=== PATIENT | male | born 1945 | race Caucasian/White ===

== ENCOUNTER 2023-05-04 09:25 | Emergency (ER) | payer MEDICARE, SELFPAY ==
[2023-05-04 09:35] VITALS: BP 172/94; PULSE 86; RESP 18; TEMP 36.6; O2SAT 97; BMI 32.3
[2023-05-04 09:49] LABS: Bilirubin Urine NEGATIVE (NEGATIVE); Blood Urine LARGE (NEGATIVE); Clarity Urine CLEAR (CLEAR); Color Urine LT. YELLOW (YELLOW); Glucose Urine UA 100 mg/dL (NEGATIVE); Ketones Urine TRACE mg/dL (NEGATIVE); Leukocyte Esterase Urine LARGE (NEGATIVE); Nitrite Urine POSITIVE (NEGATIVE); Protein Urine 30 mg/dL (NEG/TRACE); Specific Gravity Urine 1.025 (1.005-1.025); Urobilinogen Urine 0.2 EU/dL (0.2-1.0); pH Urine 5.5 (5.0-9.0)
[2023-05-04 10:02] LABS: Bacteria Urine MODERATE #/HPF (NONE SEEN); Calcium Oxalate Crystals Urine RARE; Cast Seen? NONE SEEN #/LPF (NONE SEEN); Crystals Seen? Seen #/HPF (None Seen); Mucus Urine NONE SEEN (NONE SEEN); Squamous Epithelial Cell Urine FEW #/LPF (NONE/RARE); WBC Urine 20-50 #/HPF (NONE SEEN)
[2023-05-04 10:29] VITALS: BP 130/78; PULSE 81; RESP 18; O2SAT 97
--- NOTE | 2023-05-04 16:00 | ED_ITS ---
HPI - General Adult General Chief complaint: Urogenital-Male Stated complaint: TROUBLE URINATING Time Seen by Provider: 05/04/23 09:38 Source: patient Mode of arrival: walk-in History of Present Illness HPI narrative: 69-year-old male to the emergency department with chief complaint hematuria. Patient reports he is being worked up for neurogenic bladder by urology. He is currently self cathetering. He denies any fever, sweats, chills. He denies any flank pain. He is not on blood thinners. He is self cathetering without difficulty. Related Data Previous Rx's Medication Instructions Recorded cephalexin 500 mg capsule 500 mg PO Q6H 7 days #28 caps 05/04/23 Allergies Allergy/AdvReac Type Severity Reaction Status Date / Time No Known Drug Allergies Allergy Verified 05/04/23 09:38 Review of Systems ROS Status of ROS 10 or more systems reviewed and unremark able except as noted in history and below Exam Narrative Exam Narrative: VITALS: I have reviewed the triage vital signs. GENERAL: Well developed, well appearing adult in no acute distress. NEURO: Alert and oriented. Moves all extremities. Face is symmetric and expressive. EYES: PERRL. No scleral icterus or conjunctival injection. No discharge. HENT: Normocephalic, atraumatic. Hearing is grossly intact. Nares grossly patent and without discharge. Mucous membranes moist. NECK: No JVD. Patient moves neck without restriction. GI/: Abdomen is soft and non-tender. Normoactive bowel sounds. EXTREMITIES: Symmetric muscle bulk. No joint swelling. No clubbing, cyanosis, or deformity. SKIN: Warm and dry. Normal turgor. No rash or lesions appreciated. PSYCH: Mood, affect, and interaction is appropriate to the setting. Constitutional Vital Signs, click to edit/add: Last Vital Signs Temp 98 F 05/04/23 09:35 Pulse 81 05/04/23 10:29 Resp 18 05/04/23 10:29 BP 130/78 05/04/23 10:29 Pulse Ox 97 05/04/23 10:29 O2 Del Method Room Air 05/04/23 10:29 Course Vital Signs Vital signs: Vital Signs Temperature 98 F 05/04/23 09:35 Pulse Rate 86 05/04/23 09:35 Respiratory Rate 18 05/04/23 09:35 Blood Pressure 172/94 H 05/04/23 09:35 Pulse Oximetry 97 05/04/23 09:35 Oxygen Delivery Method Room Air 05/04/23 09:35 Temperature 98 F 05/04/23 09:35 Pulse Rate 81 05/04/23 10:29 Respiratory Rate 18 05/04/23 10:29 Blood Pressure 130/78 05/04/23 10:29 Pulse Oximetry 97 05/04/23 10:29 Oxygen Delivery Method Room Air 05/04/23 10:29 Medical Decision Making [facility] Narrative Medical decision making narrative: 69-year-old male to the emergency department with hematuria. Vital stable, patient is afebrile. Belly examination is benign. His urinalysis is positive for urinary tract infection. He'll be placed on Keflex 4 times a day dosing. He'll follow-up with his urologist as scheduled. Return precautions were discussed. All questions were answered. Patient is discharged home. Lab Data Labs: Lab Results 05/04/23 Range/Units 09:43 Urine Color Lt. yellow (YELLOW) Urine Clarity Clear (CLEAR) Urine pH 5.5 (5.0-9.0) Ur Specific [place] 1.025 (1.005-1.025) Urine Protein 30 A (NEG/TRACE) mg/dL Urine Glucose (UA) 100 A (NEGATIVE) mg/dL Urine Ketones Trace A (NEGATIVE) mg/dL Urine Occult Blood Large A (NEGATIVE) Urine Nitrite Positive A (NEGATIVE) Urine Bilirubin Negative (NEGATIVE) Urine Urobilinogen 0.2 (0.2-1.0) EU/dL Ur Leukocyte Esterase Large A (NEGATIVE) Urine RBC 5-10 A (0-2) #/HPF Urine WBC 20-50 A (NONE SEEN) #/HPF Ur Squamous Epith Cells Few A (NONE/RARE) #/LPF Urine Crystals Seen A (None Seen) #/HPF Calcium Oxalate Crystal Rare Urine Bacteria Moderate A (NONE SEEN) #/HPF Urine Casts None seen (NONE SEEN) #/LPF Urine Mucus None seen (NONE SEEN) Discharge Plan Discharge Chief Complaint: Urogenital-Male Clinical Impression: Urinary tract infection Patient Disposition: Home, Self-Care Time of Disposition Decision: 10:22 Condition: Good Mode of Transportation: Private Vehicle Prescriptions / Home Meds: New cephalexin 500 mg capsule 500 mg PO Q6H 7 Days Qty: 28 0RF Print Language: Telugu Instructions: Catheter-associated Urinary Tract Infection (ED) Referrals: Dion Griggs DO [Primary Care Provider] - 1 week Discharge Date/Time: 05/04/23 10:30 Stand Alone Forms: Portal Instructions
== END 2023-05-04 10:30 | disposition home or self-care (01) ==
PROVIDERS: Emergency Provider Student in an Organized Health Care Education/Training Program; PCP Internal Medicine
DX: N39.0 Urinary tract infection, site not specified (principal)
CPT/HCPCS: 81001; 99283

== ENCOUNTER 2023-05-20 18:13 | Emergency (ER) | payer MEDICARE, SELFPAY ==
[2023-05-20 18:17] VITALS: BP 155/90; PULSE 104; RESP 18; TEMP 36.9; O2SAT 96; BMI 32.3
--- NOTE | 2023-05-20 18:21 | CT_ITS ---
[address] [address] Patient Name: KAREN ESCALONA MRN: [id number] date: 1945 Sex: M Assigned Patient Location: ED.MAIN Current Patient Location: Accession/Order Number: [id number] Exam Date: 05/20/2023 19:00 Report Date: 05/20/2023 19:56 At the request of: CARMEN HESTER Procedure: CT abdomen pelvis wo con EXAM: CT abdomen pelvis wo con; [id number] REASON FOR EXAM: Back, abdominal pain TECHNIQUE: Helical CT images of the abdomen and pelvis were obtained without IV contrast. Multiplanar reformats were generated at the scanner. Dose reduction technique used: Automated exposure control and/or adjustment of the mA and/or kV according to patient size and/or use of iterative reconstruction technique. COMPARISON: CT abdomen/pelvis 02/09/2020. FINDINGS: Note: Compared with a contrast-enhanced CT exam, noncontrast images are relatively insensitive for detection of solid organ and vascular abnormalities. Visualized Chest: Small hiatal hernia containing less than 5% of the stomach. Minimal bilateral atelectasis and/or scarring. Abdomen: Liver: Within normal limits. Gallbladder: Large calcified gallstone. No evidence of acute cholecystitis. Bile Ducts: No significant biliary ductal dilatation. Pancreas: No ductal dilatation or inflammatory changes. Spleen: No splenomegaly. Adrenals: Nodular enlargement of the left adrenal gland, stable likely the sequela of nodular hypertrophy. Kidneys: -No hydronephrosis. -There is fat stranding surrounding the right renal pelvis and right ureter to the level of the bladder. -No obstructing stone demonstrated. -There are 3 nonobstructing stones in the right kidney with the largest measuring up to 7 mm. One of the nonobstructing stones is in the right renal pelvis and the stone measures 6 x 3 mm. -Left-sided extrarenal pelvis. -There are at least 5 nonobstructing kidney stones in the left kidney with the largest measuring up to 8 mm. Vascular: No aortic aneurysm. Lymph Nodes: No adenopathy. Abdominal Wall: Small fat-containing bilateral inguinal hernias and small fat-containing periumbilical hernia. Pelvis: No mass or adenopathy. Bowel/Peritoneal Cavity/Mesentery: -No bowel obstruction or significant ileus. -No acute inflammatory changes. -No free air or free fluid. Musculoskeletal: No acute fracture or suspicious osseous lesion. CT/CT abdomen pelvis wo con IMPRESSION: 1. No hydronephrosis or obstructing kidney stone, however, there is inflammation surrounding the right renal pelvis and right ureter to the level of the bladder. Differential includes recently passed stone versus ascending infection. 2. Bilateral nonobstructing kidney stones are present. 3. Cholelithiasis versus acute cholecystitis. Electronically authenticated by: LORNA CORRALES Date: 05/20/2023 19:56
--- NOTE | 2023-05-20 18:27 | ED_ITS ---
HPI - Abdominal Pain General Chief Complaint: Abdominal Pain Stated Complaint: Abdominal Pain, Back Pain, Nausea/Vomiting Time Seen by Provider: 05/20/23 18:20 Source: patient Mode of arrival: walk-in Limitations: no limitations History of Present Illness HPI narrative: Patient is a 77-year-old male who presents to the emergency department for low back pain and bilateral low abdominal pain that began yesterday. He states today he has had 3 episodes of vomiting and had 1 episode of loose stool. He was recently seen by urologist to evaluate for neurogenic bladder and he states he self catheters 3 times a day but is still able to produce some urine. He is able to provide a urine specimen with no catheterization on arrival. He denies any urinary symptoms but states he is urinating less and is noticing dark urine. He has not passed any blood or clots. He denies fevers, chills. He has no upper respiratory symptoms. He was seen in this emergency department 3 weeks ago for UTI. He finished a course of antibiotics. Patient's is very concerned that he may have gallstones because when he was diagnosed with COVID years ago a CT scan showed he had 1 small gallstone. Related Data Previous Rx's ?Medication ?Instructions ?Recorded ciprofloxacin HCl 500 mg tablet 500 mg PO BID #20 tabs 05/20/23 (Cipro) ondansetron 4 mg disintegrating 4 mg PO Q6H PRN nausea and 05/20/23 tablet vomiting #12 tabs tramadol 50 mg tablet 50 mg PO Q4H PRN pain 3 days #15 05/20/23 tabs Allergies Allergy/AdvReac Type Severity Reaction Status Date / Time No Known Drug Allergies Allergy Verified 05/20/23 18:17 Review of Systems ROS Constitutional Denies: fever or chills Ears, nose, mouth, and throat Denies: throat pain or nasal congestion Cardiovascular Denies: chest pain Respiratory Denies: shortness of breath or cough Gastrointestinal Reports: abdominal pain, nausea, vomiting and diarrhea Genitourinary Reports: decreased urine ouput; Denies: painful urination Musculoskeletal Reports: back pain Integumentary/Breast Denies: rash Neurological Denies: headache Endocrine Denies: excessive urination Hematologic/Lymphatic Denies: easy bruising or easy bleeding Exam Narrative Exam Narrative: Gen.: Awake, alert, in no distress Head: Normocephalic, atraumatic ENT: Moist mucous membranes Respiratory: No respiratory distress, lungs clear bilaterally Cardio: Regular rate and rhythm Gastrointestinal: Abdomen is soft, nondistended and nontender to palpation Back: No CVA tenderness Extremities: Moves extremities equally Psych: Normal mood and affect Neuro: No focal neuro deficit Skin: Warm, dry, intact Constitutional Vital Signs, click to edit/add: Last Vital Signs Temp 98.5 F 05/20/23 18:17 Pulse 104 H 05/20/23 18:17 Resp 18 05/20/23 18:17 BP 155/90 H 05/20/23 18:17 Pulse Ox 96 05/20/23 18:17 O2 Del Method Room Air 05/20/23 18:17 Course Vital Signs Vital signs: Vital Signs Temperature 98.5 F 05/20/23 18:17 Pulse Rate 104 H 05/20/23 18:17 Respiratory Rate 18 05/20/23 18:17 Blood Pressure 155/90 H 05/20/23 18:17 Pulse Oximetry 96 05/20/23 18:17 Oxygen Delivery Method Room Air 05/20/23 18:17 Temperature 98.5 F 05/20/23 18:17 Pulse Rate 104 H 05/20/23 18:17 Respiratory Rate 18 05/20/23 18:17 Blood Pressure 155/90 H 05/20/23 18:17 Pulse Oximetry 96 05/20/23 18:17 Oxygen Delivery Method Room Air 05/20/23 18:17 MDM - Abdominal Pain MDM Narrative Medical decision making narrative: Patient was treated with IV Dilaudid, Zofran, IV fluids and IV Cipro for nitrite positive UTI. His previous visit on 05/04/2023 did not apparently have a urine culture ordered so there is no urine culture to compare to. He was most recently treated with Keflex, we will treat with Cipro at this time for different coverage. Patient states he is using self-catheterization 3 times a day to empty his bladder, he is using the same catheters and cleaning them at home, suspect he is contaminating his urine himself. Lab studies show normal white blood cell count, normal LFTs and bilirubin, normal lipase. CT of the abdomen and pelvis shows the patient has inflammation of the ureter, recently passed kidney stone versus infection. Patient has no hydronephrosis to suggest obstructing stone at this time. We will treat for UTI. CT also shows cholelithiasis, radiologist is not able to rule out Acute cholecystitis on this study, although the patient has no leukocytosis, transaminitis or focal ten derness in the right upper quadrant. He arrives afebrile with stable vital signs. He was reevaluated by attending physician on discharge, no indication for additional testing at this time. Patient is resting comfortably with no episodes of emesis in the ER. He will be discharged home with Cipro, Zofran, tramadol. He is instructed to follow-up with PCP and return to the ER if symptoms change or worsen. Medical Records Attestation: I reviewed the patient's medical records. Lab Data Attestation: I reviewed the patient's lab results. Labs: Lab Results 05/20/23 05/20/23 Range/Units 18:20 18:32 WBC 9.9 (4.0-11.0) 10^3/uL RBC 4.86 (4.70-6.10) 10^6/uL Hgb 14.2 (14.0-18.0) g/dL Hct 42.2 (42.0-54.0) % MCV 86.8 (80.0-94.0) fL MCH 29.2 (25.9-34.0) pg MCHC 33.6 (29.9-35.2) g/dL RDW 13.2 (11.0-15.0) % Plt Count 276 (150-450) 10^3/uL MPV 8.5 L (9.5-13.5) fL Neut % (Auto) 79.7 H (43.0-75.0) % Lymph % (Auto) 9.1 L (20.5-60.0) % [place] % (Auto) 9.1 (1.7-12.0) % Eos % (Auto) 0.9 (0.9-7.0) % Baso % (Auto) 0.6 (0.2-2.0) % Neut # (Auto) 7.9 H (1.4-6.5) 10^3/uL Lymph # (Auto) 0.9 L (1.2-3.8) 10^3/uL [place] # (Auto) 0.9 H (0.3-0.8) 10^3/uL Eos # (Auto) 0.1 (0.0-0.7) 10^3/uL Baso # (Auto) 0.1 (0.0-0.1) 10^3/uL Abs Immat Gran (auto) 0.06 H (0.00-0.03) 10^3/uL Imm/Tot Granulo (auto) 0.6 H (0.0-0.5) % Sodium 137 (136-145) mmol/L Potassium 3.9 (3.5-5.1) mmol/L Chloride 101 (98-107) mmol/L Carbon Dioxide 25.2 (21.0-32.0) mmol/L Anion Gap 14.7 BUN 15.0 (7.0-18.0) mg/dL Creatinine 1.02 (0.70-1.30) mg/dL Est GFR ( Amer) >60 (>=60) Est GFR (Non-Af Amer) >60 (>=60) BUN/Creatinine Ratio 14.7 Glucose 228 H (74-106) mg/dL Lactate 2.1 H (0.4-2.0) mmol/L Calcium 8.6 (8.5-10.1) mg/dL Total Bilirubin 0.6 (0.2-1.0) mg/dL AST 17 (15-37) U/L ALT 35 (16-63) U/L Alkaline Phosphatase 55 (46-116) U/L Total Protein 7.5 (6.4-8.2) g/dL Albumin 3.8 (3.4-5.0) g/dL Globulin 3.7 g/dL Albumin/Globulin Ratio 1.0 Lipase 73.0 (16.0-77.0) U/L Urine Color Yellow (YELLOW) Urine Clarity Clear (CLEAR) Urine pH 5.5 (5.0-9.0) Ur Specific [place] 1.025 (1.005-1.025) Urine Protein 30 A (NEG/TRACE) mg/dL Urine Glucose (UA) >=1000 A (NEGATIVE) mg/dL Urine Ketones Trace A (NEGATIVE) mg/dL Urine Occult Blood Large A (NEGATIVE) Urine Nitrite Positive A (NEGATIVE) Urine Bilirubin Negative (NEGATIVE) Urine Urobilinogen 0.2 (0.2-1.0) EU/dL Ur Leukocyte Esterase Trace A (NEGATIVE) Urine RBC 5-10 A (0-2) #/HPF Urine WBC 5-10 A (NONE SEEN) #/HPF Ur Squamous Epith Cells None seen (NONE/RARE) #/LPF Urine Crystals None seen (None Seen) #/HPF Urine Bacteria Moderate A (NONE SEEN) #/HPF Urine Casts None seen (NONE SEEN) #/LPF Urine Mucus None seen (NONE SEEN) Ur Culture Indicated? Yes Imaging Data CT scan - abdomen: Attestation: I have reviewed the pertinent imaging results. Radiologist's impression: ITS Impressions Abdomen/Pelvis CT 05/20/23 18:21 IMPRESSION: 1. No hydronephrosis or obstructing kidney stone, however, there is inflammation surrounding the right renal pelvis and right ureter to the level of the bladder. Differential includes recently passed stone versus ascending infection. 2. Bilateral nonobstructing kidney stones are present. 3. Cholelithiasis versus acute cholecystitis. Electronically authenticated by: LORNA CORRALES Date: 05/20/2023 19:56 Discharge Plan Discharge Stand Alone Forms: Portal Instructions Chief Complaint: Abdominal Pain Clinical Impression: Urinary tract infection Patient Disposition: Home, Self-Care Time of Disposition Decision: 20:14 Condition: Good Prescriptions / Home Meds: New ciprofloxacin HCl [Cipro] 500 mg tablet 500 mg PO BID Qty: 20 0RF tramadol 50 mg tablet 50 mg PO Q4H PRN (Reason: pain) 3 Days Qty: 15 0RF Rx Instructions: DX: R10.9 ondansetron 4 mg tablet,disintegrating 4 mg PO Q6H PRN (Reason: nausea and vomiting) Qty: 12 0RF Print Language: Libyan Instructions: Catheter-associated Urinary Tract Infection (ED) Referrals: Dion Griggs DO [Primary Care Provider] - 1 week Sara Bob MD [Physician] - 1 week
[2023-05-20 18:29] LABS: Bilirubin Urine NEGATIVE (NEGATIVE); Blood Urine LARGE (NEGATIVE); Clarity Urine CLEAR (CLEAR); Color Urine YELLOW (YELLOW); Glucose Urine UA >=1000 mg/dL (NEGATIVE); Ketones Urine TRACE mg/dL (NEGATIVE); Leukocyte Esterase Urine TRACE (NEGATIVE); Nitrite Urine POSITIVE (NEGATIVE); Protein Urine 30 mg/dL (NEG/TRACE); Specific Gravity Urine 1.025 (1.005-1.025); Urobilinogen Urine 0.2 EU/dL (0.2-1.0); pH Urine 5.5 (5.0-9.0)
[2023-05-20 18:30] LABS: Urine Microscopic Indicated YES
--- OUTSIDE RECORDS SUMMARY | 2023-05-20 18:34 | XMS_ITS | CCD ---
Author Organization [facility] Care Team Providers Care Hand Cooper Helper Name Role Phone CACHORRO ROBLERO Referring Unavailable CLIFF RODRIGUEZ Attending Unavailable PROVIDER, UNKNOWN Admitting Unavailable PROVIDER, UNKNOWN Attending Unavailable PROVIDER, UNKNOWN Admitting Unavailable PROVIDER, UNKNOWN Admitting Unavailable PROVIDER, UNKNOWN Attending Unavailable Dion Griggs Unavailable Unavailable Unavailable Mapus, Tondra Unavailable DION GRIGGS Primary Care Physician [phone] MAPUS, TONDRA Admitting Unavailable MAPUS, TONDRA Attending Unavailable ANSON, DR LOPEZ Primary Care Unavailable MAPUS, TONDRA Consulting Unavailable MAPUS, TONDRA Admitting Unavailable MAPUS, TONDRA Attending Unavailable ANSON, DR LOPEZ Primary Care Unavailable MAPUS, TONDRA Consulting Unavailable HANK Valente, DR KAILEE Szymanski Admitting Unavaila ble HANK Valente, DR KAILEE Szymanski Attending Unavaila ble ANSON, DR LOPEZ Primary Care Unavailable HANK Valente, DR KAILEE Szymanski Consulting Unavaila ble Dion Griggs Unavailable Bill Conn Attending Unavailable Bill Conn Referring Unavailable Dr. Dion Griggs [facility] Unavai lable Mapus, Tondra K Attending Unavailable Mapus, Tondra K Admitting Unavailable Dion Griggs Primary Care Unavailable Sara Bob Attending Unavailable ANGELI GUY Attending Unavailable Sara Bob Attending Unavailable ANGELI GUY Attending Unavailable Sara Bob Attending Unavailable ANGELI GUY Attending Unavailable Allergies Allergy Classification Reported Allergen(s) Allergy Type Date of Onset Reaction(s) Facility (3 sources) patient allergy list reviewed by nurse or physicia Propensity to adverse reactions 4 Comment:Done rubberit Other Medications Current Medications Medication Drug Class(es) Dates Sig (Normalized) Sig (Original) amLODIPine 5 mg oral tablet (9 sources) Dihydropyridine Calcium Channel Laura Start: 06-30-2022 take 1 tablet by mouth every twenty-four hours amLODIPine Besylate 5 MG 1 tablet Orally Once a day June, Active amLODIPine 5 mg / benazepril hydrochloride 20 mg oral capsule (5 sources) Dihydropyridine Calcium Channel Laura, Angiotensin Converting Enzyme Inhibitor Start: 08-04-2022 amLODIPine-benaz epril 5 mg-20 mg Cap Refill(s) 0 Start Date: 08/04/22 Status: Ordered Start: 07-23-2022 take 5-20 mg by mout h once daily amLODIPine Besy-Benazepril HCl - 5-20 MG Oral Capsule ONE PILL DAILY Quantity: 90 Refills: 3 Ordered: 23-Jul-2022 Bill Conn MD Start : 23-Jul-2022 Active Amoxicillin (1 source) Penicillin-class Antibacterial Start: 02-28-2020 amoxicillin 875 mg Start Date: 02/28/20 Status: Ordered aspirin 81 mg oral tablet (20 sources) Platelet Aggregation Inhibitor, Nonsteroidal Anti-inflammatory Drug Start: 03-05-2020 aspirin 81 mg ora l tablet Daily Start Date: 03/05/20 Status: Ordered take 1 tablet by mouth every oth er day Aspir-Low 81 MG 1 tablet Orally every other day Active Aspirin EC 81 MG TBEC TAKE 1 TABLET EVERY OTHER DAY Quantity: 45 Refills: 3 Ordered: 01-Jul-2021 Bill Conn MD Active azithromycin 250 mg oral tablet (5 sources) Macrolide Antimicrobial Start: 07-02-2022 Azithromycin 250 MG as directed Orally daily for 5 days June, Active cholecalciferol 0.025 mg oral capsule (10 sources) Vitamin D take 1 capsule by mouth every twenty-four hours Vitamin D3 25 MCG (1000 UT) 1 capsule Orally Once a day Active take 1 capsule by mouth every we ek Vitamin D3 10 MCG (400 UNIT) Oral Capsule 1 CAPSULE EVERY WEEK Quantity: 0 Refills: 0 Ordered: 06-Jan-2021 DO Active 0.5 ml dulaglutide 3 mg/ml auto-injector (18 sources) GLP-1 Receptor Agonist Start: 02-25-2021 Trulicity Pen 1.5 mg/0.5 mL subcutaneous solution 1.5 mg, SubCutaneous Start Date: 02/25/21 Status: Ordered Trulicity (dulag lutide injection pen) 1.5mg/0.5 ml 1.5mg / 0.5 ml one dose inject weekly Active finasteride 5 mg oral tablet (17 sources) 5-alpha Reductase Inhibitor Start: 02-25-2022 take 1 tablet by mouth once daily finasteride 5 mg Tab 5 mg = 1 tab(s), Oral, Daily, # 90 tab(s), Refills(s) 3, Pharmacy: [facility], 168, cm, 08/04/22 10:04:00 EDT, Height/Length Dosing, 84, kg, 08/04/22 10:04:00 EDT, Weight Dosing Start Date: 08/10/22 Status: Ordered Fish Oils (18 sources) Start: 03-05-2020 Fish Oil Oral Start Date: 03/05/20 Status: Ordered take 1 capsule by mouth every ot her day Fish Oil 1000 mg 1 capsule Orally every other day Active glipiZIDE 10 mg oral tablet (20 sources) Sulfonylurea Start: 02-28-2020 take 1 tablet by mouth once daily glipiZIDE 10 mg Tab 10 mg = 1 tab(s), Oral, Daily Start Date: 02/28/20 Status: Ordered glipiZIDE 10 MG TAKE 1 TABLET TWICE A DAY for 90 Active take 2 tablets by mouth once alka ly glipiZIDE 10 MG Oral Tablet TAKE 2 TABLET Daily Quantity: 0 Refills: 0 Ordered: 06-Jan-2021 DO Active 3 ml insulin glargine 100 unt/ml pen injector (19 sources) Insulin Analog Basaglar KwikPen 100 UNIT/ML 34 units Subcutaneous hs Active Basaglar KwikPen 100 UNIT/ML Subcutaneous Solution Pen-injector Quantity: 0 Refills: 0 Ordered: 06-Jan-2021 DO Active Basaglar KwikPen 100 UNIT/ML 30 units Subcutaneous hs Active Basaglar KwikPen 100 UNIT/ML 29 units Subcutaneous hs Active Humalog (6 sources) Insulin Analog Start: 03-05-2020 Humalog SubCutaneous, As Directed Start Date: 03/05/20 Status: Ordered lisinopril 20 mg oral tablet (20 sources) Angiotensin Converting Enzyme Inhibitor Start: 02-28-2020 take 1 tablet by mouth once daily lisinopril 20 mg Tab 20 mg = 1 tab(s), Oral, Daily Start Date: 02/28/20 Status: Ordered take 1 tablet by lorena th every twenty-four hours Lisinopril 10 mg 1 tablet Orally daily Active 24 hr metFORMIN hydrochlorid e 500 mg extended release oral tablet (20 sources) Biguanide Start: 05-20-2020 metFORMIN HCl ER 500 MG 2 tablet BID with breakfast and dinner Orally BID for 90 day(s) Pt could not tolerate IR metformin d/t g/i s/e Apr, Active Start: 02-28-2020 metformin 1,00 0 mg, Oral Start Date: 02/28/20 Status: Ordered take 2 tablets by mo [facility] once at breakfast, then take 1 tablet by mouth twice daily at dinner metFORMIN HCl ER 500 MG 2 tablet with breakfast and 1 tablet with dinner Orally BID Pt could not tolerate IR metformin d/t g/i s/e Active take 1 tablet by lorena twice daily at mealtime metFORMIN HCl - 1000 MG Oral Tablet TAKE 1 TABLET TWICE DAILY WITH MEALS. Quantity: 0 Refills: 0 Ordered: 30-Jun-2022 DO Active 0.25 mg, 0.5 mg dose 1.5 ml semaglutide 1.34 mg/ml pen injector (3 sources) Start: 08-26-2020 Ozempic (0.25 or 0.5 MG/DOSE) 2 MG/1.5ML 0.5mg Subcutaneous once weekly Jul, Active simvastatin 40 mg oral tablet (20 sources) HMG-CoA Reductase Inhibitor Start: 03-05-2020 take 1 tablet by mouth once daily simvastatin 40 mg Tab 40 mg = 1 tab(s), Oral, Daily Start Date: 03/05/20 Status: Ordered sulfacetamide sodium 100 mg/ml ophthalmic solution (5 sources) Sulfonamide Antibacterial Start: 08-20-2022 take 2 drop(s) into the eye(s) four times daily Sulfacetamide Sodium 10 % 2 drops in affected eye Ophthalmic qid for 7 days Jul, Active Start: 08-20-2022 take 2 drop(s) into the eye(s) four times daily Sulfacetamide Sodium 10 % 2 drops in affected eye Ophthalmic qid for 7 days Jul, Active Start: 08-20-2022 tamsulosin hydrochloride 0.4 mg oral capsule (2 sources) alpha-Adrenergic Laura Start: 02-25-2022 take 1 capsule by mouth once daily tamsulosin 0.4 mg Cap 0.4 mg = 1 cap(s), Oral, Daily, # 30 cap(s), Refills(s) 11, Pharmacy: [facility]/pharmacy #[id number], 168, cm, 02/25/22 9:50:00 EST, Height/Length Dosing, 84.2, kg, 02/25/22 9:50:00 EST, Weight Dosing Start Date: 02/25/22 Status: Ordered Vitamin B Complex (11 sources) Vitamin B Comple x - as directed Orally Active Vitamin D3 25 MCG (1000 UT) (8 sources) take 1 capsule by mouth once alka ly Vitamin D3 25 MCG (1000 UT) 1 capsule Orally Once a day Active Completed/Discontinued Medications Medication Drug Class(es) Dates Sig (Normalized) Sig (Original) empagliflozin 12.5 mg / metFORMIN hydrochloride 1000 mg oral tablet (3 sources) Biguanide, Sodium-Glucose Cotransporter 2 Inhibitor Start: 08-26-2020 take 1 tablet by mouth every twelve hours Synjardy 12.5-1000 MG 1 tablet with meals Orally Twice a day for 90 days Jul, Not-Taking Fish Oil 1000 MG Oral Capsule Delayed Release (7 sources) take 1 capsule by mouth every other day Fish Oil 1000 MG Oral Capsule Delayed Release TAKE 1 CAPSULE EVERY OTHER DAY Quantity: 0 Refills: 0 Ordered: 06-Jan-2021 DO Active 3 ml insulin detemir 100 unt/ml pen injector (3 sources) Insulin Analog Start: 08-26-2020 Levemir FlexTouch 100 UNIT/ML 27 units Subcutaneous qhs Jul, Not-Taking ReliOn Prime Monitor 1 (3 sources) Start: 04-16-2014 ReliOn Prime Monitor 1 as directed INVITRO ONCE DAILY BEFORE EATING for 90 days Apr, Not-Taking Start: 04-16-2014 ReliOn Prime M onitor 1 as directed INVITRO ONCE DAILY BEFORE EATING for 90 days Apr, Active ReliOn Prime Test 100 Pack (3 sources) Start: 04-16-2014 ReliOn Prime T est 100 Pack use with Relion Meter E11.9 bid for 90 days Apr, Not-Taking Start: 04-16-2014 ReliOn Prime T est 100 Pack use with Relion Meter E11.9 bid for 90 days Apr, Active Trulicity SOPN (4 sources) Trulicity SOPN U SE DIRECTED Quantity: 0 Refills: 0 Ordered: 01-Jul-2021 DO Active Vitamin B Complex CAPS (2 sources) Vitamin B Comple x CAPS TAKE 1 CAPSULE Daily Quantity: 0 Refills: 0 Ordered: 30-Jun-2022 DO Active Problems Active Problems Problem Classification Problem Date Documented Date Episodic/Chronic Administrative/social admission (2 sources) Dietary counseling and surveillance Episodic Biliary tract disease (4 sources) Cholelithiasis without obstruction; 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: [Calculus of gallbladder without cholecystitis without obstruction] Episodic Coronary atherosclerosis and other heart disease (20 sources) Arteriosclerotic vascular disease; 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: [Cardiovascular disease, unspecified] Onset: 09-25-2015 02-28-2020 Chronic Deficiency and other anemia (14 sources) Pernicious anemia; 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: [Vitamin B12 deficiency anemia due to intrinsic factor deficiency] Episodic Diabetes mellitus with complications (20 sources) Hyperglycemia due to type 2 diabetes mellitus; 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: [Type 2 diabetes mellitus with hyperglycemia] Onset: 11-07-2013 Chronic Diabetes mellitus without complication (13 sources) Diabetes mellitus; 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: [Diabetes mellitus without mention of complication, type II or unspecified type, not stated as uncontrolled] 02-28-2020 Chronic Disorders of lipid metabolism (20 sources) Hyperlipidemia; 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: [Other and unspecified hyperlipidemia] Onset: 11-07-2013 02-28-2020 Chronic Esophageal disorders (20 sources) Gastro-esophageal reflux disease with esophagitis; 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: [Lower esophageal ring] 02-28-2020 Chronic Essential hypertension (20 sources) Benign essential hypertension; 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: [Benign essential hypertension] Onset: 11-07-2013 02-28-2020 Chronic Genitourinary symptoms and ill-defined conditions (20 sources) Sensation as if bladder still full; 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: [Feeling of incomplete bladder emptying] Onset: 08-26-2021 Episodic Hyperplasia of prostate (20 sources) Benign prostatic hypertrophy with outflow obstruction; 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: [Benign prostatic hyperplasia with lower urinary tract symptoms] Onset: 02-27-2015 03-05-2020 Chronic Immunizations and screening for infectious disease (11 sources) Patient encounter status; 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: [Other specified vaccination] Episodic Inflammation; infection of eye (except that caused by tuberculosis or sexually transmitteddisease) (1 source) Unspecified acute conjunctivitis, right eye Episodic Inflammatory conditions of male genital organs (16 sources) Chronic prostatitis; 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: [Chronic prostatitis] Onset: 02-06-2022 Resolved: 04-28-2020 04-18-2020 Chronic Nutritional deficiencies (7 sources) Vitamin D deficiency; 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: [Vitamin D deficiency, unspecified] Chronic Nutritional deficiencies (3 sources) Deficiency of other specified B group vitamins; 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: [DEFICIENCY SPEC B GROUP VITAMINS] Onset: 06-15-2022 Episodic Osteoarthritis (20 sources) Osteoarthritis of right knee joint; 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: [Arthritis of right knee] 02-28-2020 Chronic Other aftercare (20 sources) Long-term current use of insulin; 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] Episodic Other aftercare (4 sources) snf (current) use of insulin Episodic Other aftercare (4 sources) Long-term current use of drug therapy; 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: [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] Episodic Other diseases of bladder and urethra (7 sources) Male urethral stricture; 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: [Unspecified urethral stricture, male, unspecified site] Onset: 04-28-2023 05-21-2020 Episodic Other diseases of kidney and ureters (5 sources) Acquired renal cyst without neoplastic change; 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: [Cyst of kidney, acquired] Onset: 08-26-2021 Episodic Other diseases of kidney and ureters (6 sources) Simple renal cyst 05-21-2020 Episodic Other injuries and conditions due to external causes (4 sources) History of fall; 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: [History of falling] Episodic Other nutritional; endocrine; and metabolic disorders (18 sources) Obesity; 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: [Obesity, unspecified] Chronic Other nutritional; endocrine; and metabolic disorders (13 sources) Body mass index 30+ - obesity; 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: [Body mass index (BMI) 32.0-32.9, adult] Chronic Other nutritional; endocrine; and metabolic disorders (20 sources) Obese class I; 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: [Body mass index (BMI) 31.0-31.9, adult] Onset: 09-25-2015 Chronic Other nutritional; endocrine; and metabolic disorders (3 sources) Body mass index (BMI) 33.0-33.9, adult Chronic Other nutritional; endocrine; and metabolic disorders (5 sources) Obesity caused by energy imbalance; 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: [Other obesity due to excess calories] Chronic Other nutritional; endocrine; and metabolic disorders (2 sources) Other obesity due to excess calories Chronic Other nutritional; endocrine; and metabolic disorders (1 source) Body mass index (BMI) 32.0-32.9, adult Chronic Other screening for suspected conditions (not mental disorders or infectious disease) (3 sources) Encounter for screening for malignant neoplasm of prostate; 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: [Screening for malignant neoplasm done] Onset: 02-02-2023 Episodic Other upper respiratory disease (4 sources) Vasomotor rhinitis; 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: [Vasomotor rhinitis] Onset: 03-02-2017 Chronic Residual codes; unclassified (20 sources) Obstructive sleep apnea syndrome; 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: [Obstructive sleep apnea (adult) (pediatric)] Onset: 05-24-2018 02-28-2020 Chronic Residual codes; unclassified (2 sources) Obstructive sleep apnea (adult) (pediatric) Chronic Screening and history of mental health and substance abuse codes (7 sources) Ex-smoker; 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: [Personal history of tobacco use] Episodic Substance-related disorders (4 sources) Tobacco user; 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: [Nicotine dependence, cigarettes, in remission] Onset: 05-11-2016 Chronic Unclassified (6 sources) Asymptomatic microscopic hematuria 02-25-2021 Unclassified (6 sources) Finding of sensation of bladder 02-25-2021 Unclassified (3 sources) Patient encounter status 02-02-2023 Past or Other Problems Problem Classification Problem Date Documented Date Episodic/Chronic Bacterial infection; unspecified site (4 sources) Bacterial infectious disease; 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: [Bacterial infection, unspecified, in conditions classified elsewhere and of unspecified site] Onset: 8 Episodic Conditions associated with dizziness or vertigo (4 sources) Dizziness and giddiness; 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: [Dizziness and giddiness] Onset: 4 Episodic Esophageal disorders (7 sources) Esophageal disorders; 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: [Gastro-esophageal reflux disease with esophagitis, without bleeding] Inflammatory conditions of male genital organs (4 sources) Acute prostatitis; 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: [Acute prostatitis] Resolved: 0 Episodic Malaise and fatigue (4 sources) Malaise and fatigue; 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: [Other malaise and fatigue] Onset: 8 Episodic Nonspecific chest pain (4 sources) Chest pain; 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: [Other chest pain] Resolved: 1 Episodic Other diseases of kidney and ureters (1 source) Cyst of kidney, acquired; 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: [CYST OF KIDNEY ACQUIRED] Onset: 2 Episodic Other gastrointestinal disorders (4 sources) Pharyngeal dysphagia; 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: [Dysphagia, pharyngoesophageal phase] Resolved: 1 Episodic Other lower respiratory disease (4 sources) Hypoxemia; 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: [Hypoxemia] Resolved: 1 Episodic Other nutritional; endocrine; and metabolic disorders (4 sources) Abnormal weight loss; 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: [Abnormal weight loss] Resolved: 1 Episodic Other nutritional; endocrine; and metabolic disorders (4 sources) Loss of appetite; 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: [Anorexia] Resolved: 1 Episodic Other screening for suspected conditions (not mental disorders or infectious disease) (4 sources) Imaging result abnormal; 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: [Abnormal findings on diagnostic imaging of other specified body structures] Resolved: 1 Chronic Other upper respiratory infections (5 sources) Acute upper respiratory infection, unspecified; 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: [Acute maxillary sinusitis] Onset: 8 Episodic Spondylosis; intervertebral disc disorders; other back problems (6 sources) Thoracic back pain; 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: [Pain in thoracic spine] Resolved: 1 Episodic Superficial injury; contusion (4 sources) Abrasion of head; 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: [Abrasion of other part of head, initial encounter] Resolved: 1 Episodic Syncope (4 sources) Syncope and collapse; 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: [Syncope and collapse] Resolved: 1 Episodic Unclassified (4 sources) Long-term current use of drug therapy; 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: [Long-term (current) use of other medications] Onset: 7 Viral infection (7 sources) Disease caused by 2019-nCoV; 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: [Other specified viral infection] Resolved: 3 Episodic Viral infection (4 sources) Disease caused by 2019-nCoV; 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: [COVID-19] Resolved: 1 Results Test Name Value Interpretation Reference Range Facility ED Note-Physicianon 05-10-19 24 ED Note-Physician [id number] IFF Normal [facility] Operative Reporton Operative Report [id number] TIFF Normal [facility] Screenson 04-29-2023 Screens [id number] TIFF Normal [facility] Screens [id number] TIFF Normal [facility] Ambulatory Visit Summaryon 0 04-28-2023 Ambulatory Visit Summary KAREN ESCALONA :1945 Visit Date:04/28/2023 Ambulatory Visit Instructions Your Diagnosis Incomplete bladder emptying BPH with urinary obstruction Urethral stricture in male Asymptomatic microscopic hematuria Screening PSA (prostate specific antigen) Simple renal cyst Your Care Team Attending Physician - Paulino GAVIN, Sara Loza Primary Care Physician - DION GRIGGS DO This Is Your Medications List Contact prescribing physician if questions or concerns amlodipine-benazepril (amLODIPine-benazepril 5 mg-20 mg Cap) aspirin (aspirin 81 mg oral tablet) dulaglutide (Trulicity Pen 1.5 mg/0.5 mL subcutaneous solution) glipiZIDE (glipiZIDE 10 mg Tab) insulin lispro (Humalog) lisinopril (lisinopril 20 mg Tab) metformin omega-3 polyunsaturated fatty acids (Fish Oil) simvastatin (simvastatin 40 mg Tab) [Image Removed: STOP]Stop taking these medications finasteride (finasteride 5 mg Tab) Procedures Performed TURP - Transurethral resection of prostate (05/01/2020), Cystoscopy (03/18/2020), Appendectomy, Colonoscopy, Knee replacement. Discharge Vitals Blood Pressure 142/82 Height 168 cm Height 66 in Weight 93 kg Weight 204.6 lb BMI 32.95 What to do next You Need to Schedule the Following Appointments Follow Up with Paulino GAVIN, Sara Loza, URL, URO When: Comments: sched urodynamics Where[address] [place] [address] [phone] Medications What How Much When Instructions Unchanged amlodipine-benazepril (amLODIPine-benazepril 5 mg-20 mg Cap) Contact prescribing physician if questions or concerns Unchanged aspirin (aspirin 81 mg oral tablet) Every day Contact prescribing physician if questions or concerns Unchanged dulaglutide (Trulicity Pen 1.5 mg/ 0.5 mL subcutaneous solution) 1.5 Milligram Subcutaneous Contact prescribing physician if questions or concerns Unchanged glipiZIDE (glipiZIDE 10 mg Tab) 1 Tablets By Mouth Every day Contact prescribing physician if questions or concerns Unchanged insulin lispro (Humalog) Subcutaneous As Directed Contact prescribing physician if questions or concerns Unchanged lisinopril (lisinopril 20 mg Tab) 1 Tablets By Mouth Every day Contact prescribing physician if questions or concerns Unchanged metformin 1,000 Milligram By Mouth Contact prescribing physician if questions or concerns Unchanged omega-3 polyunsaturated fatty acids (Fish Oil) By Mouth Contact prescribing physician if questions or concerns Unchanged simvastatin (simvastatin 40 mg Tab) 1 Tablets By Mouth Every day Contact prescribing physician if questions or concerns What How Much When Comments Stop Taking finasteride (finasteride 5 mg Tab) 1 Tablets By Mouth Every day Allergies No Known Allergies Problems Ongoing - Any problem that you are currently receiving treatment for. ASHD (arteriosclerotic heart disease) Asymptomatic microscopic hematuria Benign prostatic hyperplasia with urinary retention BPH with urinary obstruction Dysuria Gastro-esophageal reflux disease with esophagitis Hyperlipidemia Hypertension Incomplete bladder emptying Lower esophageal ring (Schatzki) GEOVANNA (obstructive sleep apnea) Prostatitis, chronic Screening PSA (prostate specific antigen) Simple renal cyst Type 2 diabetes mellitus Unilateral primary osteoarthritis, right knee Urethral stricture in male Weak urine stream Patient Survey You may receive a survey via text or e-mail asking about your office visit. Please share your experience with us by completing your survey. We appreciate your feedback and thank you for choosing us for your care. Education Materials Urodynamic Testing Urodynamic tests are done to determine how well your lower urinary tract is working. The lower urinary tract includes your bladder and the part of your body that drains urine from the bladder (urethra). When your kidneys filter your blood, urine is stored in your bladder until you feel the urge to urinate. Urination requires coordination between the nerves and muscles of your bladder and urethra. When your lower urinary tract is working well, you should be able to: ? Start urinating when your bladder is full. ? Empty your bladder completely. ? Control the flow of your urine. Why do I need urodynamic testing? You may need urodynamic testing to help find the cause of any of these problems: ? Leaking urine (incontinence). ? Problems starting or stopping your urine flow. ? Frequent or painful urination. ? Frequent urinary tract infections. ? Being unable to empty your bladder completely. ? Having strong urges to pass urine (urgency). ? Having a weak flow of urine. What are the risks? Generally, these tests are safe. However, some of the tests have risks, including: ? Discomfort. ? Frequent urge to urinate. ? Bleeding. ? Infection. ? Allergic reactions to medicines or d (more content not included)... Normal [facility] Patient Educationon 04-28-19 Patient Education Urology Urodynamic Testing Urodynamic tests are done to determine how well your lower urinary tract is working. The lower urinary tract includes your bladder and the part of your body that drains urine from the bladder (urethra). When your kidneys filter your blood, urine is stored in your bladder until you feel the urge to urinate. Urination requires coordination between the nerves and muscles of your bladder and urethra. When your lower urinary tract is working well, you should be able to: ? Start urinating when your bladder is full. ? Empty your bladder completely. ? Control the flow of your urine. Why do I need urodynamic testing? You may need urodynamic testing to help find the cause of any of these problems: ? Leaking urine (incontinence). ? Problems starting or stopping your urine flow. ? Frequent or painful urination. ? Frequent urinary tract infections. ? Being unable to empty your bladder completely. ? Having strong urges to pass urine (urgency). ? Having a weak flow of urine. What are the risks? Generally, these tests are safe. However, some of the tests have risks, including: ? Discomfort. ? Frequent urge to urinate. ? Bleeding. ? Infection. ? Allergic reactions to medicines or dyes (contrast material). What happens before the test? ? Ask your health care provider about changing or stopping your regular medicines. This is especially important if you are taking diabetes medicines or blood thinners. ? You may be asked to avoid urinating before coming to the test so that you arrive with a full bladder. ? Tell a health care provider about: ? Any allergies you have. ? All medicines you are taking, including vitamins, herbs, eye drops, creams, and [id number] medicines. ? Whether you are or may be . What happens during the test? You may have various urodynamic tests. The tests may be done separately or may all be done during one visit. You may be given an antibiotic medicine before or after testing to help prevent infection. The types of tests that may be done include: Uroflowmetry This test measures how much urine you pass and how long it takes to pass. ? You will urinate into a certain type of toilet or device (flowmeter). ? The device will measure the volume and the time of your urine flow. ? These measurements will be sent to a computer that creates a graph of your urine flow. Postvoid residual measurement This test measures how much urine is left in your bladder after you urinate. ? The test may be done with ultrasound. In this method, sound waves and a computer will be used to create an image of your bladder. ? The test can also be done by inserting a thin, flexible tube (catheter) into your bladder after you urinate. The remaining urine will be removed through the catheter so it can be measured. ? Remaining urine will be measured in milliliters (mL). If you have more than 100 mL left in your bladder after you urinate, your bladder is not emptying as it should. Cystometric testing This test uses a type of bladder catheter that can measure pressure. ? You may be given a medicine to numb the area (local anesthetic). ? The area around the opening of your urethra will be cleaned. ? A urinary catheter will be passed through your urethra into your bladder and used to empty your bladder completely. ? A measuring catheter will be placed, and your bladder will be filled with warm, germ-free (sterile) water. ? Pressure measurements will be taken: ? As your bladder fills. ? When you feel the need to urinate. ? As your bladder is emptied. ? You may be asked to cough or bear down to check for leakage. ? In some cases, your bladder may be filled with a material that shows up on X-rays (contrast material) so that X-ray pictures can be taken during the test. Electromyogram This test measures the electrical activity of the nerves and muscles of your bladder and the opening of your urethra. ? Sticky patches (electrodes) will be placed near your rectum and urethra to measure electrical activity. ? The measurements will show how well your nerves are communicating with your muscles. What can I expect after the test? ? You should be able to go home right away and do your usual activities. ? You may be told to drink a glass of water every 30 minutes for the first 2 hours after testing. ? Taking a warm bath or using warm, wet cloths (warm compresses) may relieve any discomfort near your urethra. What do the results mean? Talk with your health care provider about what your results mean. Some common causes for abnormal results from urodynamic tests include: ? Enlarged prostate in men. ? Overactive bladder. ? Urinary tract infection. ? Nervous system diseases. ? Spinal cord damage. Questions to ask your health care provider Ask your health care provider, or the department that is doing the test: ? When will my results be (more content not included)... Normal [facility] Reminderson 04-28-2023 Reminders - From: Mayte Edmonds To: EU - Recalls Lue; Sent: 04/28/2023 10:39:26 EST Show up: 07/05/2023 10:39:00 EDT Subject: Schedule Urodynamics Due Date/Time: 08/05/2023 10:39:00 EDT Reminder/Recall Per [facility], patient needs to be scheduled to have Urodynamics done once she returns as of July. Will need to call patient prior to [facility]'s return to schedule, once [facility] provides the Urodynamics days/times for July. Normal [facility] Urology Office/Clinic Noteon 04-28-2023 Urology Office/Clinic Note Chief Complaint 1 month F/U with PVR HPI Staff S/p Cysto UD/ TRUS 03/25/23- No problems with this- Previous DX; BPH, incompletely emptying bladder, screening PSA Last PSA 02/06/22- 0.73, microscopic hematuria, simple renal cyst IPSS 13 SHIM23 PVR 468 Dysuria: _denies Incomplete bladder emptying: not always Hematuria: denies visible blood Frequency: every 3-4 hours Urgency: denies Nocturia: denies Stream: yes hesitation, weaker strong Leaking: denies Post void dripping: _yes a little bit Wearing pads/ Depends: denies Urge incontinence: denies Stress incontinence: denies Incontinence without Sensory Awareness: denies Abdominal pain: denies Flank pain: _left side pain comes and goes Sexual complaints: _denies History of Present Illness Tests reviewed: reviewed UA, PVR I have reviewed the previous health record information and history for this patient from [facility]. I have reviewed and verified the staff HPI to be accurate for this encounter. Review of Systems PHQ Score Initial Depression Screen Score: 0 SCORE ROS - Provider Constitutional: denies weight loss, denies hot flashes. Eyes: denies eye problems. Gastrointestinal: denies nausea, denies vomiting. Cardiovascular: denies chest pain or angina. Integumentary: no dryness Musculoskeletal: denies musculoskeletal symptoms. ENMT: denies otolaryngeal symptoms. Respiratory: no shortness of breath. Heme/Lymph: denies easy bleeding tendency, denies easy bruising tendency. Psychiatric: no confusion, no anxiety. Genitourinary: See HPI. Physical Exam Vitals & Measurements BP: 142/82 HT: 66 in HT: 168 cm WT: 93 kg WT: 204.6 lb BMI: 32.95 General Appearance: alert, no distress, well nourished, well developed male. Genitourinary: normal scrotum, normal testes, normal urethra, normal epididymis, normal vas deferens/spermatic cord. Flank Pain: none. Bladder: nonpalpable. Assessment/Plan Former Dr. Mckinney pt who was being followed [facility]. Here today for f/u to cysto/UD PRECIOUS 23 (15). 1. Incomplete bladder emptying (R39.14: Feeling of incomplete bladder emptying) PVR (cc): 05/21/20 - 98 02/25/21 - 156 02/25/22 - 250 08/04/22 - 143 02/02/23 - 274 04/28/23 - 468 S/p Cysto, TRUS, Complex catheter placement 03/25/23 - Capacious bladder with cloudy debris. 1-2+ bladder trabeculations, patent bladder neck, stricture Fill/pull 03/26/23 - filled with 400 cc, voided 200 cc. Discussed PVR today is elevated despite pt feeling he emptied. Discussed bladder pathophysiology and is likely hypotonic given prostate is not very obstructing vs stricture recurred quickly. Did have strong stream initially. Would need to further evaluate bladder via urodynamics testing. Recommended pt to start CIC (clean intermittent catheterization) to intermittently empty the urinary bladder. We taught the technique, with instruction to measure the residual urine by straight catheterizing after first attempting to void. The risks of CIC were discussed, including bleeding, infection and causing UTI's (although urinary retention itself is also a risk). Questions were answered and the patient verbalized understanding. Straight catheters are provided. Prescription for catheters will be provided in the near future once pt notifies us of his catheter choice -Timed voids -CIC after each void at least q4h record PVRs. Once PVR is <150 mL x 3, pt can CIC BID and then daily -Schedule urodynamics. Risks/benefits/details discussed. 2. BPH with urinary obstruction (N40.1: Benign prostatic hyperplasia with lower urinary tract symptoms) S/p TURP 05/01/[address] Mckinney. S/p Cysto/TRUS 03/25/23 - Prostate volume 15 mL. Minimal R>L lateral lobe hypertrophy, widely patented bladder neck, TUR defect Failed Tamsulosin. Unable to tolerate alpha blockers due to low BP. IPSS 13 (7), QoL 1-2 (1). Recommend dc finasteride 5mg qd during cysto given small prostate Pt states sxs have improved immediately after cysto. However feels stream has weakened since. Discussed stricture may have returned. Also advised pt Finasteride is not beneficial given prostate is not very large. -D/c Finasteride -Timed voids -sched urodynamics 3. Urethral stricture in male (N35.919: Unspecified urethral stricture, male, unspecified site) S/p Cysto/UD 03/25/23 - 14Fr proximal bulbar urethral stricture that was balloon dilated to 24Fr. Discussed there are procedures that can be done to help fix stricture (Optilume vs urethroplasty) but will need discussed further in future pending UDS. Pt to learn CIC today. -See #1,2 4. Asymptomatic microscopic hematuria (R31.21: Asymptomatic microscopic hematuria) Chronic. S/p Cysto 03/18/[address] Mckinney. S/p Cysto 03/25/23 - No hypoechoic lesions. UA today shows moderate blood. Denies gross hematuria. -Cont sx monitoring 5. Screening PSA (prostate specific antigen) (Z12.5: Encounter for screening for malignant neoplasm of prostate) P (more content not included)... Normal [facility] Comment on above: Result Comment: Elec tronically Signed By: Sara Bob MD\.br\Date and Time Signed: 04/28/23 11:12 EST\.br\Electronically Co-Signed By: Deborah Torres\.br\Date and Time Co-Signed: 04/28/23 10:44 EST Operative Reporton Operative Report [id number]#[id number] TIFF [facility] Consent for Procedure/Surger yon 03-18-2023 Consent for Procedure/Surgery [id number]#1.00T IFF [facility] Screenson 02-03-2023 Screens [id number]#1.00T IFF [facility] Screens [id number]#1.00T IFF [facility] Ambulatory Visit Summaryon 1 04-05-2022 Ambulatory Visit Summary KAREN ESCALONA :1945 Visit Date:02/02/2023 Ambulatory Visit Instructions Your Diagnosis BPH with urinary obstruction Incomplete bladder emptying Screening PSA (prostate specific antigen) Asymptomatic microscopic hematuria Simple renal cyst Tests Performed Urnls Dip Stick Auto w/o Microscopy POC 49994 Your Care Team Attending Physician - ANGELI GUY PA-C Primary Care Physician - DION GRIGGS DO This Is Your Medications List Contact prescribing physician if questions or concerns amlodipine-benazepril (amLODIPine-benazepril 5 mg-20 mg Cap) aspirin (aspirin 81 mg oral tablet) dulaglutide (Trulicity Pen 1.5 mg/0.5 mL subcutaneous solution) finasteride (finasteride 5 mg Tab) glipiZIDE (glipiZIDE 10 mg Tab) insulin lispro (Humalog) lisinopril (lisinopril 20 mg Tab) metformin omega-3 polyunsaturated fatty acids (Fish Oil) simvastatin (simvastatin 40 mg Tab) Procedures Performed TURP - Transurethral resection of prostate (05/01/2020), Cystoscopy (03/18/2020), Appendectomy, Colonoscopy, Knee replacement. Discharge Vitals Heart Rate (Peripheral) 82 Respiratory Rate 16 Blood Pressure 132/74 Height 168 cm Height 66 in Weight 93 kg Weight 204.6 lb BMI 32.95 What to do next You Need to Schedule the Following Appointments Follow Up with BROOKS ANTHONY, RUBEN SALAS When: Comments: sched cysto/TRUS Where: [address] [place] [address] [phone] Medications What How Much When Instructions Unchanged amlodipine-benazepril (amLODIPine-benazepril 5 mg-20 mg Cap) Contact prescribing physician if questions or concerns Unchanged aspirin (aspirin 81 mg oral tablet) Every day Contact prescribing physician if questions or concerns Unchanged dulaglutide (Trulicity Pen 1.5 mg/ 0.5 mL subcutaneous solution) 1.5 Milligram Subcutaneous Contact prescribing physician if questions or concerns Unchanged finasteride (finasteride 5 mg Tab) 1 Tablets By Mouth Every day Contact prescribing physician if questions or concerns Unchanged glipiZIDE (glipiZIDE 10 mg Tab) 1 Tablets By Mouth Every day Contact prescribing physician if questions or concerns Unchanged insulin lispro (Humalog) Subcutaneous As Directed Contact prescribing physician if questions or concerns Unchanged lisinopril (lisinopril 20 mg Tab) 1 Tablets By Mouth Every day Contact prescribing physician if questions or concerns Unchanged metformin 1,000 Milligram By Mouth Contact prescribing physician if questions or concerns Unchanged omega-3 polyunsaturated fatty acids (Fish Oil) By Mouth Contact prescribing physician if questions or concerns Unchanged simvastatin (simvastatin 40 mg Tab) 1 Tablets By Mouth Every day Contact prescribing physician if questions or concerns Test Results Urnls Dip Stick Auto w/o Microscopy POC 46932 (02/02/2023) Bilirubin Urine Dipstick - Negative Blood Urine Dipstick - Trace-intact Glucose Urine Dipstick - 2+ 500 mg/dl Ketones Urine Dipstick - Negative Leukocytes Urine Dipstick - Negative Nitrite Urine Dipstick - Negative Protein Urine Dipstick - Negative Specific [place] Urine Dipstick - 1.025 Urine Appearance Urine Dipstick - Clear Urine Color Urine Dipstick - Yellow Urobilinogen Urine Dipstick - Normal 0.2-1 EU/dl pH Urine Dipstick - 5.5 Allergies No Known Allergies Problems Ongoing - Any problem that you are currently receiving treatment for. ASHD (arteriosclerotic heart disease) Asymptomatic microscopic hematuria Benign prostatic hyperplasia with urinary retention BPH with urinary obstruction Dysuria Gastro-esophageal reflux disease with esophagitis Hyperlipidemia Hypertension Incomplete bladder emptying Lower esophageal ring (Schatzki) GEOVANNA (obstructive sleep apnea) Prostatitis, chronic Screening PSA (prostate specific antigen) Simple renal cyst Type 2 diabetes mellitus Unilateral primary osteoarthritis, right knee Urethral stricture in male Weak urine stream Patient Survey You may receive a survey via text or e-mail asking about your office visit. Please share your experience with us by completing your survey. We appreciate your feedback and thank you for choosing us for your care. Education Materials Cystoscopy Cystoscopy is a procedure that is used to help diagnose and sometimes treat conditions that affect the lower urinary tract. The lower urinary tract includes the bladder and the urethra. The urethra is the tube that drains urine from the bladder. Cystoscopy is done using a thin, tube-shaped instrument with a light and camera at the end (cystoscope). The cystoscope may be hard or flexible, depending on the goal of the procedure. The cystoscope is inserted through the urethra, into the bladder. Cystoscopy may be recommended if you have: ? Urinary tract infections that keep coming back. ? Blood in the urine (hematuria). ? An inability to control when yo (more content not included)... 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 *Finasteride 5mg QD therapy Last PSA 02/06/22- 0.73 Denies pain/burning and visible blood. No problems getting stream started, occasional slow stream. Thinks its slower when he has not had a lot to drink. Is content at this time. But also interested in hearing info on how it could be treated. Feels empty. Denies frequency during day and night. Mild leaking with urgency. Not enough to warrant wearing protection. Denies any concerns. PVR 274ml History of Present Illness staff HPI reviewed and agree. Review of Systems PHQ Score Initial Depression Screen Score: 0 SCORE no fever, chills, malaise, myalgia. no rash/lesions. no chest pain, palpitations, or SOB. no abdominal pain, nausea, vomiting. no unilateral calf swelling, redness, pain Physical Exam Vitals & Measurements HR: 82(Peripheral) RR: 16 BP: 132/74 HT: 66 in HT: 168 cm WT: 93 kg WT: 204.6 lb BMI: 32.95 General: nontoxic, NAD Mouth: moist mucosa Lungs: normal respiratory effort Cardio: regular rate, good distal perfusion Abdomen: nondistended, no suprapubic distention or tenderness, no CVA tenderness Neurologic: Grossly normal Skin: No rashes or suspicious lesions Assessment/Plan Former Dr. Mckinney pt PRECIOUS 15. 1. BPH with urinary obstruction (N40.1: Benign prostatic hyperplasia with lower urinary tract symptoms) S/p TURP 05/01/[address] Mckinney. IPSS 7, QoL 1. However, PVR is 274ml. Failed Tamsulosin. Unable to tolerate alpha blockers due to low BP. Started taking Finasteride 5mg qd in 2021. Denies SEs. Reports occasional weaker stream with reduced fluid intake. Mild leaking with urgency but not bothersome. Feels he empties completely. However PVRs indicate otherwise (see #2). Due to incomplete bladder emptying despite TURP, discussed further evaluation w cysto/TRUS. If found to still have obstruction, could consider MIPP like Rezum or Urolift, depending on prostate size and shape. Educational pamphlets provided. If no obstruction found, may need to proceed w uros to assess bladder health. Explained pipe vs pump analogy today in regards to prostate vs bladder health. -Will schedule cysto/TRUS. The risks and benefits for cystoscopy have been discussed. The risks include bleeding, infection, and irritation of the bladder and urinary channel, among others. The patient, after being informed of procedural details and after questions have been answered, wishes to proceed. Full informed consent has been obtained. Will order Local anesthesia. -Cont Finasteride for now. 2. Incomplete bladder emptying (R39.14: Feeling of incomplete bladder emptying) PVR (cc): 05/21/20 - 98 02/25/21 - 156 02/25/22 - 250 08/04/22 - 143 02/02/23 - 274 encouraged double void maneuvers. See #1. 3. Screening PSA (prostate specific antigen) (Z12.5: Encounter for screening for malignant neoplasm of prostate) PSA 04/18/15 - 0.83 04/22/16 - 1.04 05/20/17 - 0.95 05/25/18 - 1.11 07/07/19 - 1.10 08/01/20 - 0.70 02/06/22 - 0.73 PCP has historically checked PSA yearly. 4. Asymptomatic microscopic hematuria (R31.21: Asymptomatic microscopic hematuria) S/p Cysto 03/18/[address] Mckinney. Chronic. UA today shows trace-intact blood. -Sched cysto. See #1. 5. Simple renal cyst (N28.1: Cyst of kidney, acquired) WILLIAMS 02/02/20 - 1.9 x 1.5 x 1.5 cm simple L renal cyst. No intervention necessary. Follow-up With When Contact Information BROOKS ANTHONY, ANGELI Montiel, URL [address] [place] [address] [phone] Additional Instructions: sched cysto/TRUS Patient Education Cystoscopy Documentation recorded by the rafael Torres accurately reflects the services(s) I performed and decisions made by me. Authenticated by Angeli Guy PA-C on 02/02/2023 15:06:35. IDeborah, personally scribed for Angeli Guy PA-C on 02/02/2023 14:51:09. . Problem List/Past Medical History Ongoing ASHD (arteriosclerotic heart disease) Asymptomatic microscopic hematuria Benign prostatic hyperplasia with urinary retention BPH with urinary obstruction Dysuria Gastro-esophageal reflux disease with esophagitis Hyperlipidemia Hypertension Incomplete bladder emptying Lower esophageal ring (Schatzki) GEOVANNA (obstructive sleep apnea) Prostatitis, chronic Screening PSA (prostate specific antigen) Simple renal cyst Type 2 diabetes mellitus Unilateral primary osteoarthritis, right knee Urethral stricture in male Weak urine stream Historical No qualifying data Procedure/Surgical History TURP - Transurethral resection of prostate (05/01/2020), Cystoscopy (03/18/2020), Appendectomy, Colonoscopy, Knee replacement. Medications amLODIPine-benazepril 5 mg-20 mg Cap aspirin 81 mg oral (more content not included)... Normal [facility] Comment on above: Result Comment: Elec tronically Signed By: ANGELI GUY PA-C\.br\Date and Time Signed: 02/02/23 15:07 EST\.br\Electronically Co-Signed By: Deborah Torres\.br\Date and Time Co-Signed: 02/02/23 14:51 EST A1C HEMOGLOBINon 12-15-2022 HbA1c (Bld) [Mass fraction] 7.0 % rubberit Other Glucose - FINGER STICKon Glucose [Mass/Vol] 119 mg/dL rubberit Other HbA1c (Bld) [Mass fraction]o n 12-15-2022 A1C HEMOGLOBIN Code Climate Other Screenson 08-05-2022 Screens [id number] D:127 Normal [facility] Patient Educationon 08-05-19 Patient Education Urology Benign Prostatic Hyperplasia Benign prostatic hyperplasia (BPH) is an enlarged prostate gland that is caused by the normal aging process. The prostate may get bigger as a man gets older. The condition is not caused by cancer. The prostate is a walnut-sized gland that is involved in the production of semen. It is located in front of the rectum and below the bladder. The bladder stores urine. The urethra carries stored urine out of the body. An enlarged prostate can press on the urethra. This can make it harder to pass urine. The buildup of urine in the bladder can cause infection. Back pressure and infection may progress to bladder damage and kidney (renal) failure. What are the causes? This condition is part of the normal aging process. However, not all men develop problems from this condition. If the prostate enlarges away from the urethra, urine flow will not be blocked. If it enlarges toward the urethra and compresses it, there will be problems passing urine. What increases the risk? This condition is more likely to develop in men older than 50 years. What are the signs or symptoms? Symptoms of this condition include: ? Getting up often during the night to urinate. ? Needing to urinate frequently during the day. ? Difficulty starting urine flow. ? Decrease in size and strength of your urine stream. ? Leaking (dribbling) after urinating. ? Inability to pass urine. This needs immediate treatment. ? Inability to completely empty your bladder. ? Pain when you pass urine. This is more common if there is also an infection. ? Urinary tract infection (UTI). How is this diagnosed? This condition is diagnosed based on your medical history, a physical exam, and your symptoms. Tests will also be done, such as: ? A post-void bladder scan. This measures any amount of urine that may remain in your bladder after you finish urinating. ? A digital rectal exam. In a rectal exam, your health care provider checks your prostate by putting a lubricated, gloved finger into your rectum to feel the back of your prostate gland. This exam detects the size of your gland and any abnormal lumps or growths. ? An exam of your urine (urinalysis). ? A prostate specific antigen (PSA) screening. This is a blood test used to screen for prostate cancer. ? An ultrasound. This test uses sound waves to electronically produce a picture of your prostate gland. Your health care provider may refer you to a specialist in kidney and prostate diseases (urologist). How is this treated? Once symptoms begin, your health care provider will monitor your condition (active surveillance or watchful waiting). Treatment for this condition will depend on the severity of your condition. Treatment may include: ? Observation and yearly exams. This may be the only treatment needed if your condition and symptoms are mild. ? Medicines to relieve your symptoms, including: ? Medicines to shrink the prostate. ? Medicines to relax the muscle of the prostate. ? Surgery in severe cases. Surgery may include: ? Prostatectomy. In this procedure, the prostate tissue is removed completely through an open incision or with a laparoscope or robotics. ? Transurethral resection of the prostate (TURP). In this procedure, a tool is inserted through the opening at the tip of the penis (urethra). It is used to cut away tissue of the inner core of the prostate. The pieces are removed through the same opening of the penis. This removes the blockage. ? Transurethral incision (TUIP). In this procedure, small cuts are made in the prostate. This lessens the prostate's pressure on the urethra. ? Transurethral microwave thermotherapy (TUMT). This procedure uses microwaves to create heat. The heat destroys and removes a small amount of prostate tissue. ? Transurethral needle ablation (TUNA). This procedure uses radio frequencies to destroy and remove a small amount of prostate tissue. ? Interstitial laser coagulation (ILC). This procedure uses a laser to destroy and remove a small amount of prostate tissue. ? Transurethral electrovaporization (TUVP). This procedure uses electrodes to destroy and remove a small amount of prostate tissue. ? Prostatic urethral lift. This procedure inserts an implant to push the lobes of the prostate away from the urethra. Follow these instructions at home: ? Take vwtg-wdn-pwwampo and prescription medicines only as told by your health care provider. ? Monitor your symptoms for any changes. Contact your health care provider with any changes. ? Avoid drinking large amounts of liquid before going to bed or out in public. ? Avoid or reduce how much caffeine or alcohol you drink. ? Give yourself time when you urinate. ? Keep all follow-up visits. This is important. Contact a health care provider if: ? You have unexplained back pain. ? Your symptoms do not get better with treatment. ? You develop side effects from the medicine (more content not included)... Normal [facility] Urology Office/Clinic Noteon 08-04-2022 Urology Office/Clinic Note Chief Complaint 6m HPI Staff Former DLS pt 6m PVR DX: Incomplete Bladder Emptying, BPH, Prostatitis, Microscopic Hematuria & Simple Renal Cyst *Started on Finasteride 5mg QD therapy at last encounter Better flow with Finasteride. Denies pain/burning and visible blood. Stream starts then occasional unsteadiness. Mild intermittent Rt flank pain for a while. PVR today is 143ml IPSS 19 previously, 13 today. QOL 2 Review of Systems PHQ Score Initial Depression Screen Score: 0 no fever, chills, malaise, myalgia. no rash/lesions. no chest pain, palpitations, or SOB. no abdominal pain, nausea, vomiting. no unilateral calf swelling, redness, pain Physical Exam Vitals & Measurements HR: 68(Peripheral) RR: 16 BP: 130/78 HT: 66 in HT: 168 cm WT: 84 kg WT: 184.8 lb BMI: 29.76 General: nontoxic, NAD Mouth: moist mucosa Lungs: normal respiratory effort Cardio: regular rate, good distal perfusion Abdomen: nondistended, no suprapubic distention or tenderness, no CVA tenderness Neurologic: Grossly normal Skin: No rashes or suspicious lesions Assessment/Plan 1. BPH with urinary obstruction (N40.1: Benign prostatic hyperplasia with lower urinary tract symptoms) PVR improved and IPSS improved w addition of finasteride. no bothersome side effects. pt will continue this medication. S/p TURP done 04/2020, pathology was negative. most recent PSA 0.73 done 02/06/22 failed flomax previously - had severely low BP per . unable to tolerate alpha blockers. Ordered: E&M of Est. Patient Moderate 30-39 Min 86805 Measure Post Void residual urine and/or bladder capacity by US- non-imaging 67829 Urnls Dip Stick Auto w/o Microscopy POC 45356 2. Incomplete bladder emptying (R39.14: Feeling of incomplete bladder emptying) see #1. PVR: 05/21/20 - 98cc 02/25/21 - 156cc 02/25/22 - 250cc 08/04/22 - 143cc Ordered: E&M of Est. Patient Moderate 30-39 Min 42242 3. Prostatitis, chronic (N41.1: Chronic prostatitis) Hx of chronic prostatitis. Pt denies any infections since prior encounter, feels his infection frequency has lessened after TURP. Ordered: E&M of Est. Patient Moderate 30-39 Min 58041 4. Simple renal cyst (N28.1: Cyst of kidney, acquired) Found on WILLIAMS done 01/2020, left 1.9cm. Follow PRN. Ordered: E&M of Est. Patient Moderate 30-39 Min 53998 5. Asymptomatic microscopic hematuria (R31.21: Asymptomatic microscopic hematuria) Chronic. UA today show trace intact only, no signs of infection. Ordered: E&M of Est. Patient Moderate 30-39 Min 44407 Follow-up With When Contact Information ANGELI GUY PA-C, URL Within 1 year Additional Instructions: Patient Education Benign Prostatic Hyperplasia Problem List/Past Medical History Ongoing ASHD (arteriosclerotic heart disease) Asymptomatic microscopic hematuria Benign prostatic hyperplasia with urinary retention BPH with urinary obstruction Dysuria Gastro-esophageal reflux disease with esophagitis Hyperlipidemia Hypertension Incomplete bladder emptying Lower esophageal ring (Schatzki) GEOVANNA (obstructive sleep apnea) Prostatitis, chronic Simple renal cyst Type 2 diabetes mellitus Unilateral primary osteoarthritis, right knee Urethral stricture in male Weak urine stream Historical No qualifying data Procedure/Surgical History TURP - Transurethral resection of prostate (05/01/2020), Cystoscopy (03/18/2020), Appendectomy, Colonoscopy, Knee replacement. Medications amLODIPine-benazepril 5 mg-20 mg Cap aspirin 81 mg oral tablet, Daily finasteride 5 mg Tab, 5 mg= 1 tab(s), Oral, Daily, 11 refills Fish Oil, Oral glipiZIDE 10 mg Tab, 10 mg= 1 tab(s), Oral, Daily Humalog, SubCutaneous, As Directed lisinopril 20 mg Tab, 20 mg= 1 tab(s), Oral, Daily metformin, 1000 mg, Oral simvastatin 40 mg Tab, 40 mg= 1 tab(s), Oral, Daily tamsulosin 0.4 mg Cap, 0.4 mg= 1 cap(s), Oral, Daily, 11 refills Trulicity Pen 1.5 mg/0.5 mL subcutaneous solution, 1.5 mg, SubCutaneous Allergies No Known Allergies Social History Alcohol - Low Risk, 03/05/2020 Tobacco Former smoker, quit more than 30 days ago Tobacco Use:. Cigarettes, 08/04/2022 Family History Heart disease: Mother. Stroke: Father. Immunizations Vaccine Date Status influenza virus vaccine, inactivated 12/10/2021 Recorded influenza virus vaccine, inactivated 12/06/2020 Recorded SARS-CoV-2 (COVID-19) Ad26 vaccine 05/06/2020 Recorded influenza virus vaccine, inactivated 11/30/2019 Recorded influenza virus vaccine, inactivated 10/31/2019 Recorded influenza virus vaccine, inactivated 11/23/2018 Recorded pneumococcal 13-valent vaccine 04/01/2015 Recorded pneumococcal 23-valent vaccine 03/01/2015 Recorded Lab Results Ambulatory Point of Care Results Bilirubin Urine Dipstick: Negative (08/04/22 10:00:00) Blood Urine Dipstick: Trace-intact (08/04/22 10:00:00) Glucose Urine Dipstick: 1+ 250 mg/dl (08/04/22 10:00:00) Ketones (more content not included)... Normal [facility] Comment on above: Result Comment: Elec tronically Signed By: BROOKS ANTHONY, ANGELI Carreon\Date and Time Signed: 08/04/22 10:50 EDT Office Visit (Cardiology)on 06-30-2022 Follow-up visit Diagnoses/Problems Assessed ASCVD (arteriosclerotic cardiovascular disease) (429.2,440.9) (I25.10) Essential hypertension, benign (401.1) (I10) Hyperlipidemia (272.4) (E78.5) Diabetes mellitus (250.00) (E11.9) Class 1 obesity with body mass index (BMI) of 32.0 to 32.9 in adult (278.00,V85.32) (E66.9,Z68.32) Back pain, thoracic (724.1) (M54.6) Orders Class 1 obesity with body mass index (BMI) of 32.0 to 32.9 in adult Healthy Weight Tips; Status:Complete; Done: [id number] Some eating tips that can help you lose weight.; Status:Complete; Done: [id number] Essential hypertension, benign Start: amLODIPine Besylate 5 MG Oral Tablet; TAKE 1 TABLET BY MOUTH EVERY DAY Patient Instructions Please bring all medicines, vitamins, and herbal supplements with you when you come to the office. Prescriptions will not be filled unless you are compliant with your follow up appointments or have a follow up appointment scheduled as per instruction of your physician. Refills should be requested at the time of your visit. BP check in 3 weeks Follow up in 1 year Chief Complaint KAREN ESCALONA is being seen for an annual follow-up of. Patient is in the office for follow-up for the problems noted below accompanied by his . Recently has been having pain in the back, left arm and left lower extremities. This clearly indicates spinal disease problem for which I directed him to his PCP to be seen as soon as possible. As result of his pain his pressure is elevated at home and in the office today. He is on lisinopril 20 mg daily. He has no indication of angina pectoris orthopnea PND or palpitations. No indication of active coronary artery disease. His weight is unchanged from last visit and encouragement to lose weight with more prudent diet and low calorie count is recommended. ASSESSMENT AND PLAN: 1. Hypertension currently uncontrolled on lisinopril 20 mg daily. We will add amlodipine 5 mg daily and follow his blood pressure readings. The reason for his uncontrolled hypertension is likely his chronic back pain 2. Hyperlipidemia, on statin therapy, under control. 3. Diabetes, managed by diabetes clinic at [facility], recent A1c 7.2 4. Obesity. Encouraged more weight control with diet and exercise. His weight has increased 10 pounds from last visit, encouragement provided to reduce calorie consumption since he seems to be physically active 5. Coronary artery disease with 50% LAD stenosis in 2009 cardiac catheterization, nuclear stress test 2020 was normal risk factor have been aggressively targeted 6. Recent development of significant back pain left arm pain and left lower extremity pain. Patient is scheduled to see his PCP soon. The patient is are concerned about this being cardiac in origin the nature of the symptoms does not point out cardiac cause. Bill Conn MD, [facility] Surgical History Problems History of Appendectomy History of Complete colonoscopy Managed By: Kike GAVIN, Jluis High (Gastroenterology) History of Knee arthroscopy Past Medical History Problems History of COVID-19 virus infection (079.89) (U07.1) Resolved Date: 30 Jun 2022 Current Meds Medication NameInstruction Aspirin EC 81 MG Oral Tablet Delayed ReleaseTAKE 1 TABLET EVERY OTHER DAY Basaglar KwikPen 100 UNIT/ML Subcutaneous Solution Pen-injector Finasteride 5 MG Oral TabletTAKE 1 TABLET DAILY DIRECTED. Fish Oil 1000 MG Oral Capsule Delayed ReleaseTAKE 1 CAPSULE EVERY OTHER DAY glipiZIDE 10 MG Oral TabletTAKE 2 TABLET Daily Lisinopril 20 MG Oral TabletTAKE 1 TABLET DAILY. metFORMIN HCl - 1000 MG Oral TabletTAKE 1 TABLET TWICE DAILY WITH MEALS. Simvastatin 40 MG Oral TabletTake 1 tablet daily Trulicity SOPNUSE DIRECTED Vitamin B Complex CAPSTAKE 1 CAPSULE Daily Vitamin D3 10 MCG (400 UNIT) Oral Capsule1 CAPSULE EVERY WEEK Allergies Medication No Known Drug Allergies Recorded By: Pamela Mercado; 01/02/2021 12:10:16 PM Social History Problems Caffeine use (V49.89) (Z78.9) 3 cups coffee daily, occasionl diet soda Consumes alcohol (V49.89) (Z78.9) 1 beer a month Former smoker (V15.82) (Z87.891) No illicit drug use Review of Systems Constitutional: not feeling tired. Cardiovascular: no intermittent leg claudication and as noted in HPI. Respiratory: no cough and no shortness of breath. Gastrointestinal: no change in bowel habits and no blood in stools. Integumentary: no skin rashes. Neurological: no seizures and no frequent falls. All other systems have been reviewed and are negative for complaint. Vitals Vital Signs Recorded: 30Jun2022 11:20AM Heart Rate96, L Radial [id number], LUE, Sitting Gtwugqbaj03, LUE, Sitting Height5 ft 6 in Vaosjq067 lb BMI Ynvdsmciuj49.77 kg/m2 BSA Calculated2.01 Tobacco Useb) No PHQ-2 #1. Over the last 2 weeks have you felt down, depressed or hopeless? (If yes, answer PHQ-9 below)No PHQ-2 #2. Over the last 2 weeks have you felt little interest or pleasure (more content not included)... Normal [facility] Tobacco Screening.on 023 Adult depression screening assessment No [facility] [employer] DO Work Phone: Fall risk assessment a) No falls within the last year [facility] [employer] DO Work Phone: Tobacco use status CPHS b) No [facility] [employer] DO Work Phone: A1C HEMOGLOBINon 06-15-2022 HbA1c (Bld) [Mass fraction] 7.1 % [employer] Other Glucose - FINGER STICKon Glucose [Mass/Vol] 133 mg/dL [employer] Other HbA1c (Bld) [Mass fraction]o n 06-15-2022 A1C HEMOGLOBIN Code [employer] Other LIPID PROFILEon 06-10-2022 CHOL-HDL RATIO NORM SEE BELOW Normal [facility] Comment on above: Result Comment: 3.3 - 4.4 LOW RISK 4.4 - 7.1 AVERAGE RISK 7.1 - 11.0 MODERATE RISK >11.0 HIGH RISK Performed By: #### C , LIPID #### [facility] [address] [address] [address] Kim Roper Cholesterol [Mass/Vol] 132 mg/dL Normal <=200 [facility] Comment on above: Performed By: #### C MP, LIPID #### [facility] [address] [address] [address] Kim Roper Cholesterol in HDL [Mass/Vol] 47 mg/dL Normal 40-60 [facility] Comment on above: Performed By: #### C MP, LIPID #### [facility] [address] [address] [address] Kim Roper Cholesterol in LDL [Mass/Vol] 63.2 mg/dL Normal [facility] Comment on above: Performed By: #### C MP, LIPID #### [facility] [address] [address] [address] Kim Roper Cholesterol.total/ Cholesterol in HDL [Mass ratio] 2.8 {ratio} Normal [facility] Comment on above: Performed By: #### C MP, LIPID #### [facility] [address] [place] [address] Dr. Kim Roper HDL NORMAL > or = 60 mg/dl - LO W CARDIOVASCULAR RISK <40 mg/dl - HIGH CARDIOVASCULAR RISK Normal [facility] Comment on above: Performed By: #### C MP, LIPID #### [facility] [address] [place] [address] Dr. Kim Roper LDL CALC NORMAL SEE BELOW Normal [facility] Comment on above: Result Comment: <100 mg/dl OPTIMAL 100 - 129 mg/dl NEAR OR ABOVE OPTIMAL 130 - 159 mg/dl BORDERLINE HIGH 160 - 189 mg/dl HIGH >190 mg/dl VERY HIGH Performed By: #### C MP, LIPID #### [facility] [address] [address] [address] Kim Roper Triglyceride [Mass/Vol] 109 mg/dL Normal <=150 [facility] Comment on above: Performed By: #### C MP, LIPID #### [facility] [address] [address] [address] Kim Roper VLDL CALC 21.8 mg/dL Normal [facility] Comment on above: Performed By: #### C MP, LIPID #### [facility] [address] [place] [address] Dr. Kim Roper MICROALB CREAT RATIO RANDOMo n 06-10-2022 mALB <1.3 Normal <=30.0 [facility] Comment on above: Performed By: #### M CRR #### [facility] [address] [place] [address] Dr. Kim Roper URINE CREAT 109.64 mg/dL Normal 20.00-300.00 [facility] Comment on above: Performed By: #### M CRR #### [facility] [address] [place] [address] Dr. Kim Roper PROF 14(COMP METB)on 023 Albumin [Mass/Vol] 3.7 g/dL Normal 3.4-5.0 [facility] Comment on above: Performed By: #### C MP, LIPID #### [facility] [address] [place] [address] Dr. Kim Roper Albumin/Globulin [Mass ratio] 1.0 {ratio} Normal [facility] Comment on above: Performed By: #### C MP, LIPID #### [facility] [address] [place] [address] Dr. Kim Roper ALP [Catalytic activity/Vol] 47 U/L Normal 46-116 [facility] Comment on above: Performed By: #### C MP, LIPID #### [facility] [address] [place] [address] Dr. Kim Roper ALT [Catalytic activity/Vol] 40 U/L Normal 16-63 [facility] Comment on above: Performed By: #### C MP, LIPID #### [facility] [address] [place] [address] Dr. Kim Roper Anion gap [Moles/Vol] 11.4 mmol/L Normal [facility] Comment on above: Performed By: #### C MP, LIPID #### [facility] [address] [place] [address] Dr. Kim Roper AST [Catalytic activity/Vol] 21 U/L Normal 15-37 [facility] Comment on above: Performed By: #### C MP, LIPID #### [facility] [address] [address] [address] Kim Roper Bilirubin [Mass/Vol] 0.5 mg/dL Normal 0.2-1.0 [facility] Comment on above: Performed By: #### C MP, LIPID #### [facility] [address] [address] [address] Kim Roper Calcium [Mass/Vol] 8.9 mg/dL Normal 8.5-10.1 [facility] Comment on above: Performed By: #### C MP, LIPID #### [facility] [address] [address] [address] Kim Roper Chloride [Moles/Vol] 105 mmol/L Normal 98-107 [facility] Comment on above: Performed By: #### C MP, LIPID #### [facility] [address] [place] [address] Dr. Kim Roper CO2 [Moles/Vol] 29.3 mmol/L Normal 21.0-32.0 [facility] Comment on above: Performed By: #### C MP, LIPID #### [facility] [address] [place] [address] Dr. Kim Roper Creatinine [Mass/Vol] 0.88 mg/dL Normal 0.70-1.30 [facility] Comment on above: Performed By: #### C MP, LIPID #### [facility] [address] [place] [address] Dr. Kim Roper EGFR-AF BURUNDIAN >60 Normal >=60 [facility] Comment on above: Performed By: #### C MP, LIPID #### [facility] [address] [address] [address] Kim Roper EGFR-NON AF B[place]UNDIAN >60 Normal >=60 [facility] Comment on above: Performed By: #### C MP, LIPID #### [facility] [address] [place] [address] Dr. Kim Roper Globulin (S) [Mass/Vol] 3.6 g/dL Normal [facility] Comment on above: Performed By: #### C MP, LIPID #### [facility] [address] [address] [address] Kim Roper Glucose [Mass/Vol] 160 mg/dL Critically high 74-106 [facility] Comment on above: Performed By: #### C MP, LIPID #### [facility] [address] [place] [address] Dr. Kim Roper Potassium [Moles/Vol] 4.7 mmol/L Normal 3.5-5.1 [facility] Comment on above: Performed By: #### C MP, LIPID #### [facility] [address] [place] [address] Dr. Kim Roper Protein [Mass/Vol] 7.3 g/dL Normal 6.4-8.2 [facility] Comment on above: Performed By: #### C MP, LIPID #### [facility] [address] [place] [address] Dr. Kim Roper Sodium [Moles/Vol] 141 mmol/L Normal 136-145 [facility] Comment on above: Performed By: #### C MP, LIPID #### [facility] [address] [place] [address] Dr. Kim Roper Urea nitrogen [Mass/Vol] 11.0 mg/dL Normal 7.0-18.0 [facility] Comment on above: Performed By: #### C MP, LIPID #### [facility] [address] [place] [address] Dr. Kim Roper Urea nitrogen/Creatinin e [Mass ratio] 12.5 mg/mg Normal [facility] Comment on above: Performed By: #### C MP, LIPID #### [facility] [address] [place] [address] Dr. Kim Roper VITAMIN B12on 06-10-2022 Cobalamin (Vitamin B12) [Mass/Vol] 281.0 pg/mL Normal 193.0-986.0 [facility] Comment on above: Performed By: #### V ITB12 #### [facility] [address] [place] [address] Dr. Kim Roper LIPID PROFILEon 06-20-2021 CHOL-HDL RATIO NORM SEE BELOW Normal [facility] Comment on above: Result Comment: 3.3 - 4.4 LOW RISK 4.4 - 7.1 AVERAGE RISK 7.1 - 11.0 MODERATE RISK >11.0 HIGH RISK Performed By: #### L IPID, CMP #### [facility] [address] [address] [address] Kim Roper Cholesterol [Mass/Vol] 114 mg/dL Normal <=200 [facility] Comment on above: Performed By: #### L IPID, CMP #### [facility] [address] [address] [address] Kim Roper Cholesterol in HDL [Mass/Vol] 42 mg/dL Normal 40-60 [facility] Comment on above: Performed By: #### L IPID, CMP #### [facility] [address] [address] [address] Kim Roper Cholesterol in LDL [Mass/Vol] 45.6 mg/dL Normal [facility] Comment on above: Performed By: #### L IPID, CMP #### [facility] [address] [address] [address] Kim Roper Cholesterol.total/ Cholesterol in HDL [Mass ratio] 2.7 {ratio} Normal [facility] Comment on above: Performed By: #### L IPID, CMP #### [facility] [address] [address] [address] Kim Roper HDL NORMAL > or = 60 mg/dl - LO W CARDIOVASCULAR RISK <40 mg/dl - HIGH CARDIOVASCULAR RISK Normal [facility] Comment on above: Performed By: #### L IPID, CMP #### [facility] [address] [address] [address] Kim Roper LDL CALC NORMAL SEE BELOW Normal [facility] Comment on above: Result Comment: <100 mg/dl OPTIMAL 100 - 129 mg/dl NEAR OR ABOVE OPTIMAL 130 - 159 mg/dl BORDERLINE HIGH 160 - 189 mg/dl HIGH >190 mg/dl VERY HIGH Performed By: #### L IPID, CMP #### [facility] [address] [address] [address] Kim Roper Triglyceride [Mass/Vol] 132 mg/dL Normal <=150 [facility] Comment on above: Performed By: #### L IPID, CMP #### [facility] [address] [place] [address] Dr. Kim Roper VLDL CALC 26.4 mg/dL Normal [facility] Comment on above: Performed By: #### L IPID, CMP #### [facility] [address] [place] [address] Dr. Kim Roper MICROALB CREAT RATIO RANDOMo n 06-20-2021 mALB <1.3 Normal <=30.0 [facility] Comment on above: Performed By: #### M CRR #### [facility] [address] [place] [address] Dr. Kim Roper URINE CREAT 126.66 mg/dL Normal 20.00-300.00 [facility] Comment on above: Performed By: #### M CRR #### [facility] [address] [place] [address] Dr. Kim Roper PROF 14(COMP METB)on 022 Albumin [Mass/Vol] 3.9 g/dL Normal 3.4-5.0 [facility] Comment on above: Performed By: #### L IPID, CMP #### [facility] [address] [place] [address] Dr. Kim Roper Albumin/Globulin [Mass ratio] 1.2 {ratio} Normal [facility] Comment on above: Performed By: #### L IPID, CMP #### [facility] [address] [place] [address] Dr. Kim Roper ALP [Catalytic activity/Vol] 46 U/L Normal 46-116 [facility] Comment on above: Performed By: #### L IPID, CMP #### [facility] [address] [place] [address] Dr. Kim Roper ALT [Catalytic activity/Vol] 32 U/L Normal 16-63 [facility] Comment on above: Performed By: #### L IPID, CMP #### [facility] [address] [address] [address] Kim Roper Anion gap [Moles/Vol] 10.9 mmol/L Normal [facility] Comment on above: Performed By: #### L IPID, CMP #### [facility] [address] [address] [address] Kim Roper AST [Catalytic activity/Vol] 17 U/L Normal 15-37 [facility] Comment on above: Performed By: #### L IPID, CMP #### [facility] [address] [address] [address] Kim Roper Bilirubin [Mass/Vol] 0.6 mg/dL Normal 0.2-1.3 [facility] Comment on above: Performed By: #### L IPID, CMP #### [facility] [address] [place] [address] Dr. Kim Roper Calcium [Mass/Vol] 8.7 mg/dL Normal 8.5-10.1 [facility] Comment on above: Performed By: #### L IPID, CMP #### [facility] [address] [address] [address] Kim Roper Chloride [Moles/Vol] 103 mmol/L Normal 98-107 [facility] Comment on above: Performed By: #### L IPID, CMP #### [facility] [address] [address] [address] Kim Roper CO2 [Moles/Vol] 30.4 mmol/L Critically high 22.0-30.0 [facility] Comment on above: Performed By: #### L IPID, CMP #### [facility] [address] [address] [address] Kim Ropre Creatinine [Mass/Vol] 0.77 mg/dL Normal 0.66-1.25 [facility] Comment on above: Performed By: #### L IPID, CMP #### [facility] [address] [place] [address] Dr. Kim Roper EGFR-AF BURUNDIAN >60 Normal >=60 [facility] Comment on above: Performed By: #### L IPID, CMP #### [facility] [address] [address] [address] Kim Roper EGFR-NON AF BURUNDIAN >60 Normal >=60 [facility] Comment on above: Performed By: #### L IPID, CMP #### [facility] [address] [address] [address] Kim Roper Globulin (S) [Mass/Vol] 3.3 g/dL Normal [facility] Comment on above: Performed By: #### L IPID, CMP #### [facility] [address] [address] [address] Kim Roper Glucose [Mass/Vol] 88 mg/dL Normal 74-106 [facility] Comment on above: Performed By: #### L IPID, CMP #### [facility] [address] [place] [address] Dr. Kim Roper Potassium [Moles/Vol] 4.3 mmol/L Normal 3.4-5.0 [facility] Comment on above: Performed By: #### L IPID, CMP #### [facility] [address] [address] [address] Kim Roper Protein [Mass/Vol] 7.2 g/dL Normal 6.1-8.2 [facility] Comment on above: Performed By: #### L IPID, CMP #### [facility] [address] [place] [address] Dr. Kim Roper Sodium [Moles/Vol] 140 mmol/L Normal 137-145 [facility] Comment on above: Performed By: #### L IPID, CMP #### [facility] [address] [address] [address] Kim Roper Urea nitrogen [Mass/Vol] 15.0 mg/dL Normal 7.0-18.0 [facility] Comment on above: Performed By: #### L IPID, CMP #### [facility] [address] [place] [address] Dr. Kim Roper Urea nitrogen/Creatinin e [Mass ratio] 19.5 mg/mg Normal [facility] Comment on above: Performed By: #### L IPID, CMP #### [facility] [address] [address] [address] Kim Roper VITAMIN B12on 06-20-2021 Cobalamin (Vitamin B12) [Mass/Vol] 430.0 pg/mL Normal 239.0-931.0 [facility] Comment on above: Performed By: #### V ITB12 #### [facility] [address] [address] [address] Kim Roper Tobacco Screening.on 021 Fall risk assessment a) No falls within the last year -[facility] [address] DO Work Phone: Tobacco use status CPHS b) No -[facility] DO Work Phone: GLUCOSE, FINGERSTICK-IN OFFI CEon 03-20-2020 Glucose [Mass/Vol] 155 mg/dL High 80-116 [facility] Comment on above: Performed By: #### Everett ROP I #### [facility] [address] [place] [address], BASIC METABOLIC PANELon 03-01 Anion gap [Moles/Vol] 14 mmol/L High 5-13 [facility] Comment on above: Performed By: #### DESI DALE #### [facility] [address] [place] [address], Calcium [Mass/Vol] 8.3 mg/dL Low 8.4-10.4 [facility] Comment on above: Performed By: #### DESI DALE #### [facility] [address] [place] [address], Chloride [Moles/Vol] 101 mmol/L Normal 97-111 [facility] Comment on above: Performed By: #### DESI DALE #### [facility] [address] [place] [address], CO2 [Moles/Vol] 24 mmol/L Normal 21-30 [facility] Comment on above: Performed By: #### DESI DALE #### [facility] [address] [place] [address], Creatinine [Mass/Vol] 0.73 mg/dL Low 0.80-1.30 [facility] Comment on above: Performed By: #### Dinesh THAPA CH8 #### [facility] [address] [place] [address], GFR/1.73 sq M.predicted MDRD (S/P/Bld) [Vol rate/Area] 91 mL/min/1.73sqm Normal >=60 [facility] Comment on above: Performed By: #### DESI DALE #### [facility] [address] [place] [address], Glucose [Mass/Vol] 221 mg/dL High 80-116 [facility] Comment on above: Performed By: #### DESI DALE #### [facility] [address] [place] [address], Potassium [Moles/Vol] 4.0 mmol/L Normal 3.3-5.3 [facility] Comment on above: Performed By: #### DESI DALE #### [facility] [address] [place] [address], Sodium [Moles/Vol] 135 mmol/L Normal 135-148 [facility] Comment on above: Performed By: #### DESI DALE #### [facility] [address] [place] [address], Urea nitrogen [Mass/Vol] 8 mg/dL Normal 8-22 [facility] Comment on above: Performed By: #### DESI DALE #### [facility] [address] [place] [address], CBC WITH DIFFERENTIALon 03-01 Basophils (Bld) [#/Vol] 0.07 10*3/uL Normal 0.00-0.20 [facility] Comment on above: Performed By: #### Everett ROP I #### [facility] [address] [place] [address], Basophils/100 WBC (Bld) 0.7 % Normal <=1.9 [facility] Comment on above: Performed By: #### T ROP I #### [facility] [address] [place], [place], Eosinophils (Bld) [#/Vol] 0.02 10*3/uL Normal 0.00-0.70 [facility] Comment on above: Performed By: #### T ROP I #### [facility] [address] [place], [place], Eosinophils/100 WBC (Bld) 0.2 % Normal 0.1-4.0 [facility] Comment on above: Performed By: #### T ROP I #### [facility] [address] [place], [place], Erythrocyte distribution width (RBC) [Ratio] 14.9 % High 11.5-14.5 [facility] Comment on above: Performed By: #### T ROP I #### [facility] [address] [place], [place], Hematocrit (Bld) [Volume fraction] 41.2 % Normal 41.0-53.0 [facility] Comment on above: Performed By: #### T ROP I #### [facility] [address] [place], [place], Hemoglobin (Bld) [Mass/Vol] 14.0 g/dL Normal 13.9-16.3 [facility] Comment on above: Performed By: #### T ROP I #### [facility] [address] [place], [place], Lymphocytes (Bld) [#/Vol] 0.59 10*3/uL Low 1.00-4.80 [facility] Comment on above: Performed By: #### T ROP I #### [facility] [address] [place], [place], Lymphocytes/100 WBC (Bld) 6.1 % Low 24.0-44.0 [facility] Comment on above: Performed By: #### T ROP I #### [facility] [address] [place], [place], MCH (RBC) [Entitic mass] 29.5 pg Normal 26.0-34.0 [facility] Comment on above: Performed By: #### T ROP I #### [facility] [address] [place], [place], MCHC (RBC) [Mass/Vol] 34.1 g/dL Normal 32.0-35.9 [facility] Comment on above: Performed By: #### T ROP I #### [facility] [address] [place], [place], MCV (RBC) [Entitic vol] 87 fL Normal 80-100 [facility] Comment on above: Performed By: #### T ROP I #### [facility] [address] [place], [place], Monocytes (Bld) [#/Vol] 0.61 10*3/uL Normal 0.20-1.00 [facility] Comment on above: Performed By: #### T ROP I #### [facility] [address] [place], [place], Monocytes (Bld) [#/Vol] 18 10*3/uL Normal <=20 [facility] Comment on above: Performed By: #### T ROP I #### [facility] [address] [place], [place], Monocytes/100 WBC (Bld) 6.3 % Normal 2.0-11.0 [facility] Comment on above: Performed By: #### T ROP I #### [facility] [address] [place], [place], Neutrophils (Bld) [#/Vol] 8.39 10*3/uL High 1.50-8.00 [facility] Comment on above: Performed By: #### T ROP I #### [facility] [address] [place], [place], Neutrophils/100 WBC (Bld) 86.7 % High 31.0-76.0 [facility] Comment on above: Performed By: #### T ROP I #### [facility] [address] [place], [place], Nucleated RBC (Bld) [#/Vol] 0.0 10*3/uL Normal [facility] Comment on above: Performed By: #### T ROP I #### [facility] [address] [place], [place], Nucleated RBC (Bld) [#/Vol] 0.00 10*3/uL Normal [facility] Comment on above: Performed By: #### T ROP I #### [facility] [address] [place], [place], Platelet mean volume (Bld) [Entitic vol] 6.4 fL Low 7.5-11.2 [facility] Comment on above: Performed By: #### T ROP I #### [facility] [address] [place], [place], Platelets (Bld) [#/Vol] 221 10*3/uL Normal 150-400 [facility] Comment on above: Performed By: #### T ROP I #### [facility] [address] [place], [place], RBC (Bld) [#/Vol] 4.76 10*6/uL Normal 4.50-5.90 [facility] Comment on above: Performed By: #### T ROP I #### [facility] [address] [place], [place], WBC (Bld) [#/Vol] 9.7 10*3/uL Normal 4.5-11.5 [facility] Comment on above: Performed By: #### T ROP I #### [facility] [address] [place], [place], CT HEAD W/O CONTRASTon 03-19 CT HEAD W/O CONTRAST EXAMINATION: CT HEAD W/O CLINICAL HISTORY: fall, posterior lac TECHNOLOGISTS NOTE: COMPARISON: Outside head CT and CT of the cervical spine from the same day TECHNIQUE: Thin axial imaging of the head was performed without intravenous contrast. FINDINGS: No acute intracranial hemorrhage or parenchymal contusion. No CT evidence of acute territorial infarction, mass, or extra-axial fluid collection. Mild generalized brain parenchymal volume loss with commensurate dilation of ventricles and subarachnoid spaces. Ventricular caliber corresponds with the degree of mild generalized volume loss. Patchy hypodensities in the supratentorial periventricular white matter are nonspecific but favor sequela of moderate chronic small vessel ischemia. Atheromatous calcifications of the carotid siphons. Skull base and calvarium are intact. High left parietal scalp soft tissue swelling/hematoma. Paranasal sinuses are clear. Tympanomastoid cavities are unopacified. IMPRESSION: No acute intracranial injuries. High left parietal scalp soft tissue swelling/hematoma. Mild volume loss and nonspecific white matter changes likely representing sequela of moderate chronic small vessel ischemia. MACRO: None Normal [facility] ETHANOL, SERUMon 03-19-2020 Ethanol [Mass/Vol] mg/dL Normal None Detected [facility] Comment on above: Performed By: #### E ALANIS, CH8 #### [facility] [address] [place] [address], HIV1 HIV2 AGAB SCRNon 2020 HIV AG-AB SCREEN Non-Reactive Normal Non-Reactive [facility] Comment on above: Order Comment: HIV Information: ???[place] Rev. code 3701.243(E): This information has been disclosed to you from confidential records protected from disclosure by state law. ???You shall make no further disclosure of this information without the specific, written, and informed release of the individual to whom it pertains, or as otherwise permitted by state law. ???A general authorization for the release of medical or other information is not sufficient for the purpose of the release of HIV test results or diagnoses. Result Comment: No l aboratory evidence for HIV Infection. Negative result does not rule out acute HIV infection. If acute HIV infection is suspected, recommend ordering an HIV-1 RNA quanitification test. Performed By: #### h iv1 hiv2 agab scrn #### [facility] [address], [place], LACTIC ACIDon 03-19-2020 Lactate [Moles/Vol] 1.5 mmol/L Normal 0.5-2.0 [facility] Comment on above: Performed By: #### L ACT #### [facility] [address] [place], [place], PARTIAL THROMBOPLASTIN TIMEo n 03-19-2020 aPTT Coag (Bld) [Time] 29 s Normal 25-37 [facility] Comment on above: Performed By: #### P T, APTT #### [facility] [address] [place] [address], PROTHROMBIN TIME AND INRon 0 03-19-2020 INR Coag (PPP) [Relative time] 0.96 {INR} Normal 0.90-1.10 [facility] Comment on above: Performed By: #### P T, APTT #### [facility] [address] [place] [address], PT Coag (PPP) [Time] 10.9 s Normal 9.7-12.9 [facility] Comment on above: Performed By: #### P T, APTT #### [facility] [address] [place] [address], TROPONIN Ion 03-19-2020 Troponin I.cardiac [Mass/Vol] ng/mL Normal <0.120 [facility] Comment on above: Result Comment: Rang e <=0.04 ng/mL: Negative Interpretation: Repeat testing in four to six hours if clinically indicated. Range 0.04-0.11 ng/mL: Suspected for acute myocardial injury. Interpretation: Serial measurements may be necessary to confirm or exclude the diagnosis of acute coronary syndrome. Repeat testing in four to six hours if clinically indicated. Range >=0.12 ng/mL: Results consistent with myocardial injury. Interpretation: Clinical and laboratory correlation recommended. Performed By: #### T ROP I #### [facility] [address] [place] [address], Troponin I.cardiac [Mass/Vol] ng/mL Normal <0.120 [facility] Comment on above: Result Comment: Rang e <=0.04 ng/mL: Negative Interpretation: Repeat testing in four to six hours if clinically indicated. Range 0.04-0.11 ng/mL: Suspected for acute myocardial injury. Interpretation: Serial measurements may be necessary to confirm or exclude the diagnosis of acute coronary syndrome. Repeat testing in four to six hours if clinically indicated. Range >=0.12 ng/mL: Results consistent with myocardial injury. Interpretation: Clinical and laboratory correlation recommended. Performed By: #### T ROP I #### [facility] [address] [place] [address], Troponin I.cardiac [Mass/Vol] ng/mL Normal <0.120 [facility] Comment on above: Result Comment: Rang e <=0.04 ng/mL: Negative Interpretation: Repeat testing in four to six hours if clinically indicated. Range 0.04-0.11 ng/mL: Suspected for acute myocardial injury. Interpretation: Serial measurements may be necessary to confirm or exclude the diagnosis of acute coronary syndrome. Repeat testing in four to six hours if clinically indicated. Range >=0.12 ng/mL: Results consistent with myocardial injury. Interpretation: Clinical and laboratory correlation recommended. Performed By: #### T ROP I #### [facility] [address] [place], [place], TYPE AND SCREENon 03-19-2020 ABO and Rh group Nom (Bld) No Previous Results Normal [facility] Comment on above: Performed By: #### T S #### [facility] [address] [place], [place], ABO and Rh group Nom (Bld) A Positive Normal [facility] Comment on above: Performed By: #### T S #### [facility] [address] [place], [place], ABSC INT Negative Normal [facility] Comment on above: Performed By: #### T S #### [facility] [address] [place], [place], [facility] CARDIAC STRESS/REST INJE CTIONon 08-15-2019 NO CARDIAC STRESS/REST INJECTION Patient Name: KAREN ESCALONA STUDY: MYOCARDIAL PERFUSION STRESS TEST WITH LEXISCAN Performing facility: [facility], [address] [place] [address], [address], [address] [id number] [facility] Provider: Bill Cnon MD, [facility] PCP: Dr. Zia GRIGGS Supervising provider: Chinedu Mcgarry MD, [facility] INDICATION: ASCVD DM Hyperlipidemia HISTORY: Gender: M; Age: 74 y/o ; Height: 167.64 cm; Weight: 92.3395796 kg. CAD; Diabetes; HTN; Abnormal EKG; High Cholesterol; Quit smoking years ago. Cardiac catheterization 2009. COMPARISON: Previous nuclear testing completed 2009 at [facility]. ACCESSION NUMBER(S): [id number]; [id number]; [id number] ORDERING CLINICIAN: BILL CONN TECHNIQUE: ONE DAY protocol. Stress injection: Date:08/15/2019, 35.8 mCi of Myoview IV 20 seconds after rapid injection of Lexiscan. Rest injection: Date: 08/15/2019, 11.7 mCi of Myoview IV at rest. The patient had a rapid injection of 0.4 mg of Lexiscan IV over 10 seconds. Imaging was performed by gated tomographic technique. Reason for Lexiscan: BACK PAIN STRESS TEST DATA: Resting heart rate was 68 BPM. Resting blood pressure was 154/88 mmHg. Peak blood pressure was 148/80 mmHg. Peak heart rate was 95 BPM. TEST TERMINATED DUE TO: Protocol completed FINDINGS: STRESS TEST RESULTS: Resting electrocardiogram revealed normal sinus rhythm without ST-T changes. There were no significant ischemic ECG changes or dysrhythmias. The patient did not have chest pains/symptoms during procedure. There was a normal recovery phase. IMAGING RESULTS: Image quality was good. Rest and stress tomographic images were reviewed and revealed normal perfusion without evidence of ischemia, myocardial infarction, or left ventricular dilatation with stress. Overall left ventricular systolic function appeared to be normal without regional wall motion abnormalities. Ejection fraction was 54%. TID is 1.16 and is normal. There were no evidence of attenuation artifact. IMPRESSION: Normal Lexiscan Myoview cardiac perfusion stress test. No evidence of ischemia or myocardial infarction by perfusion imaging. Normal left ventricular systolic function, ejection fraction 54%. Study compared to previous study from outlining institution. Previous study reported perfusion abnormality in the septum which was not evident during this study. Electronically signed by: CLARE FONSECA MD Normal [facility] Vital Signs Date Time Vital Sign Value Performing Clinician Facility 04-28-2023 10:03-0500 Blood Pressure Location Sara Bob [facility] 04-28-2023 10:03-0500 Diastolic blood pressure 82 mm[Hg] Sara Bob [facility] 04-28-2023 10:03-0500 Systolic blood pressure 142 mm[Hg] Sara Eatone [facility] 03-17-2023 09:00-0500 Body height 167.64 cm Dion Ball Other [facility] 03-17-2023 09:00-0500 Body mass index (BMI) [Ratio] 33.41 kg/m2 Dion Ball Other [facility] Other 03-17-2023 09:00-0500 Body weight 93.9 kg Dion Ball Other [facility] Other 03-17-2023 09:00-0500 Body weight 93.[address] [facility] 03-17-2023 09:00-0500 Diastolic blood pressure 80 mm[Hg] Dion Ball Other [facility] 03-17-2023 09:00-0500 Respiratory rate 12 /min Dion Ball Other [facility] Other 03-17-2023 09:00-0500 Systolic blood pressure 132 mm[Hg] Dion Ball Other [facility] 02-02-2023 14:05-0500 Blood Pressure Location ANGELI BECKWITHRY [facility] 02-02-2023 14:05-0500 Diastolic blood pressure 74 mm[Hg] ANGELI BROOKS [facility] 02-02-2023 14:05-0500 Heart rate 82 /min ANGELI BROOKS [facility] 02-02-2023 14:05-0500 Respiratory rate 16 /min ANGELI BROOKS [facility] 02-02-2023 14:05-0500 Systolic blood pressure 132 mm[Hg] ANGELI GUY [facility] 12-15-2022 13:00-0400 Body height 167.64 cm Tondra Mapus Other [facility] Other 12-15-2022 13:00-0400 Body mass index (BMI) [Ratio] 33.23 kg/m2 Tondra Mapus Other [facility] Other 12-15-2022 13:00-0400 Body weight 93.4 kg Tondra Mapus Other [facility] Other 12-15-2022 13:00-0400 Diastolic blood pressure 87 mm[Hg] Tondra Mapus Other [facility] Other 12-15-2022 13:00-0400 Respiratory rate 18 /min Tondra Mapus Other [facility] Other 12-15-2022 13:00-0400 SaO2% (BldA) [Mass fraction] 97 % Tondra Mapus Other [facility] Other 12-15-2022 13:00-0400 Systolic blood pressure 154 mm[Hg] Tondra Mapus Other [facility] Other 09-02-2022 10:30-0400 Body height 167.64 cm Dion Ball Other [facility] Other 09-02-2022 10:30-0400 Body mass index (BMI) [Ratio] 32.89 kg/m2 Dion Ball Other [facility] Other 09-02-2022 10:30-0400 Body weight 92.44 kg Dion Ball Other [facility] Other 09-02-2022 10:30-0400 Diastolic blood pressure 80 mm[Hg] Dion Ball Other [facility] Other 09-02-2022 10:30-0400 Respiratory rate 12 /min Dion Ball Other [facility] Other 09-02-2022 10:30-0400 Systolic blood pressure 130 mm[Hg] Dion Ball Other [facility] Other 08-20-2022 10:45-0400 Body height 167.64 cm Dion Ball Other [facility] Other 08-20-2022 10:45-0400 Body mass index (BMI) [Ratio] 32.47 kg/m2 Dion Ball Other [facility] Other 08-20-2022 10:45-0400 Body weight 91.26 kg Dion Ball Other [facility] Other 08-20-2022 10:45-0400 Diastolic blood pressure 77 mm[Hg] Dion Ball Other [facility] Other 08-20-2022 10:45-0400 Respiratory rate 12 /min Dion Ball Other [facility] Other 08-20-2022 10:45-0400 Systolic blood pressure 150 mm[Hg] Dion Ball Other [facility] Other 08-04-2022 10:02-0400 Blood Pressure Location ANGELI GUY [facility] 08-04-2022 10:02-0400 Diastolic blood pressure 78 mm[Hg] ANGELI GUY [facility] 08-04-2022 10:02-0400 Heart rate 68 /min ANGELI GUY [facility] 08-04-2022 10:02-0400 Respiratory rate 16 /min ANGELI GUY [facility] 08-04-2022 10:02-0400 Systolic blood pressure 130 mm[Hg] ANGELI GUY [facility] 07-23-2022 11:09-0400 Diastolic blood pressure 78 mm[Hg] Dion Dinesh Ball Work Phone: [facility] DO Work Phone: 07-23-2022 11:09-0400 Systolic blood pressure 138 mm[Hg] Dion Dinesh Ball Work Phone: [facility] DO Work Phone: 07-23-2022 11:06-0400 Body height 167.64 cm Dion Montiel Ball Work Phone: [facility] DO Work Phone: 07-23-2022 11:06-0400 Body mass index (BMI) [Ratio] 32.77 kg/m2 Dion E Ball Work Phone: [facility] DO Work Phone: 07-23-2022 11:06-0400 Body surface area Derived from formula 2.01 m2 Dion E Ball Work Phone: [facility] DO Work Phone: 07-23-2022 11:06-0400 Body weight 92.08 kg Dion Montiel Ball Work Phone: [facility] [address] DO Work Phone: 07-23-2022 11:06-0400 Diastolic blood pressure 80 mm[Hg] Dion E Ball Work Phone: [facility] DO Work Phone: 07-23-2022 11:06-0400 Heart rate 90 /min Dion E Ball Work Phone: [facility] DO Work Phone: 07-23-2022 11:06-0400 Systolic blood pressure 140 mm[Hg] Dion E Ball Work Phone: [facility] DO Work Phone: 06-30-2022 11:20-0400 Body height 167.64 cm Dion E Ball Work Phone: [facility] DO Work Phone: 06-30-2022 11:20-0400 Body mass index (BMI) [Ratio] 32.77 kg/m2 Dion E Ball Work Phone: [facility] DO Work Phone: 06-30-2022 11:20-0400 Body surface area Derived from formula 2.01 m2 Dion E Ball Work Phone: [facility] DO Work Phone: 06-30-2022 11:20-0400 Body weight 92.08 kg Dion E Ball Work Phone: [facility] DO Work Phone: 06-30-2022 11:20-0400 Diastolic blood pressure 88 mm[Hg] Dion E Ball Work Phone: [facility] DO Work Phone: 06-30-2022 11:20-0400 Heart rate 96 /min Dion E Ball Work Phone: [facility] [employer] [address] DO Work Phone: 06-30-2022 11:20-0400 Systolic blood pressure 158 mm[Hg] Dion Griggs Work Phone: [facility] [employer] [address] DO Work Phone: 06-15-2022 14:30-0400 Body height 167.64 cm Tondra Mapus Other [facility] Other 06-15-2022 14:30-0400 Body mass index (BMI) [Ratio] 33.18 kg/m2 Tondra Mapus Other [facility] Other 06-15-2022 14:30-0400 Body weight 93.26 kg Tondra Mapus Other [facility] Other 06-15-2022 14:30-0400 Diastolic blood pressure 85 mm[Hg] Tondra Mapus Other [facility] Other 06-15-2022 14:30-0400 Respiratory rate 18 /min Tondra Mapus Other [facility] Other 06-15-2022 14:30-0400 SaO2% (BldA) [Mass fraction] 95 % Tondra Mapus Other [employer] Other 06-15-2022 14:30-0400 Systolic blood pressure 151 mm[Hg] Tondra Mapus Other [employer] Other 02-25-2022 09:34-0500 Blood Pressure Location ANGELI GUY [facility] 02-25-2022 09:34-0500 Diastolic blood pressure 82 mm[Hg] ANGELI GUY [facility] 02-25-2022 09:34-0500 Heart rate 68 /min ANGELI GUY [facility] 02-25-2022 09:34-0500 Respiratory rate 16 /min ANGELI GUY [facility] 02-25-2022 09:34-0500 Systolic blood pressure 138 mm[Hg] ANGELI GUY [facility] 08-26-2021 10:43-0400 Blood Pressure Location Kailee Mckinney Jr. [facility] 08-26-2021 10:43-0400 Diastolic blood pressure 76 mm[Hg] Kailee Mckinney Jr. [facility] 08-26-2021 10:43-0400 Heart rate 85 /min Kailee Mckinney Jr. [facility] 08-26-2021 10:43-0400 Respiratory rate 16 /min Kailee Mckinney Jr. [facility] 08-26-2021 10:43-0400 Systolic blood pressure 138 mm[Hg] Kailee Mckinney Jr. [facility] 01-06-2021 14:59-0500 Body height 167.64 cm Dion Griggs Work Phone: [facility] 250 DO Work Phone: 01-06-2021 14:59-0500 Body mass index (BMI) [Ratio] 32.6 kg/m2 Dion E Ball Work Phone: [facility] DO Work Phone: 01-06-2021 14:59-0500 Body surface area Derived from formula 2.01 m2 Dion E Ball Work Phone: [facility] DO Work Phone: 01-06-2021 14:59-0500 Body weight 91.63 kg Dion E Ball Work Phone: [facility] 250 DO Work Phone: 01-06-2021 14:59-0500 Diastolic blood pressure 76 mm[Hg] Dion E Ball Work Phone: [facility] 250 DO Work Phone: 01-06-2021 14:59-0500 Heart rate 86 /min Dion E Ball Work Phone: [facility] DO Work Phone: 01-06-2021 14:59-0500 Systolic blood pressure 128 mm[Hg] Dion Montiel Ball Work Phone: [facility] DO Work Phone: Encounters Encounter Date Encounter Type Care Provider Facility Start: 05-05-2023 ambulatory ANGELI Michel ty:[facility] Start: 04-28-2023 End: 04-29-2023 ambulatory Sara Bob Facility:[facility] Start: 04-28-2023 End: 04-28-2023 Patient encounter procedure Sara Bob [facility] Start: 03-26-2023 End: 03-27-2023 ambulatory Sara Bob Facility:[facility] Start: 03-26-2023 End: 03-26-2023 Patient encounter procedure Sara Bob [facility] Start: 03-25-2023 End: 03-26-2023 ambulatory Sara Bob Facility:[id number] Start: 03-17-2023 End: 03-17-2023 ambulatory Dion Griggs Other [employer] Other Start: 03-17-2023 Office outpatient vi sit 25 minutes Dion Griggs [facility] Start: 03-17-2023 End: 03-17-2023 Patient encounter procedure Count Includes [facility] Start: 03-16-2023 End: 03-16-2023 ambulatory Tondra Mapus Other [employer] Other Start: 03-16-2023 Telephone [address] Tondra Mapus [facility] Start: 02-02-2023 End: 02-03-2023 ambulatory ANGELI GUY [facility] Start: 02-02-2023 End: 02-02-2023 Patient encounter procedure [facility] Start: 12-15-2022 (DM) Diabetes Tondra Mapus [facility] Start: 12-15-2022 End: 12-16-2022 ambulatory Tondra K Mapus [facility] Other Start: 12-02-2022 End: 12-02-2022 ambulatory Dion Griggs Other [employer] Other Start: 12-02-2022 Nursing evaluation o f patient and report Dion Griggs [facility] Start: 09-02-2022 End: 09-02-2022 ambulatory Dion Griggs Other [employer] Other Start: 09-02-2022 Patient encounter procedure Dion Griggs [facility] Start: 08-20-2022 End: 08-20-2022 ambulatory Dion Griggs Other [employer] Other Start: 08-20-2022 Office outpatient vi sit 15 minutes Dion Griggs [facility] Start: 08-04-2022 End: 08-05-2022 ambulatory ANGELI GUY Facility:[facility] Start: 08-04-2022 End: 08-04-2022 Patient encounter procedure ANGELI GUY [facility] Start: 07-23-2022 Office outpatient vi sit 10 minutes Dion Griggs Work Phone: [facility] [employer] 250 DO Work Phone: Start: 06-30-2022 Telephone encounter Dion Griggs [facility] Start: 06-30-2022 Office outpatient vi sit 25 minutes Dion Griggs Work Phone: [facility] [employer] 250 DO Work Phone: Start: 06-30-2022 End: 06-30-[facility] Start: 06-15-2022 (DM) Diabetes Tondra Mapus [facility] Start: 06-15-2022 End: 06-15-2022 ambulatory Tondra Mapus Other [employer] Other Start: 06-10-2022 End: 06-11-2022 ambulatory TONDRA MAPUS Facility: Start: 05-04-2022 Rx Renewal Dion szymanski Work Phone: [facility] [employer] 250 DO Work Phone: Start: 04-27-2022 End: 04-27-2022 ambulatory Tondra Mapus Other [employer] Other Start: 04-27-2022 Telephone encounter Tondra Cristobal [facility] Start: 02-25-2022 End: 02-25-2022 Patient encounter procedure ANGELI Dinesh BROOKS [facility] Start: 02-06-2022 End: 02-07-[address] KAILEE Valente Facility:[facility] Start: 09-03-2021 Adult health examination Dion Griggs Other [employer] Other Start: 09-01-2021 Pre-procedure evaluation check Dion Griggs Other [employer] Other Start: 08-26-2021 End: 08-26-2021 Patient encounter procedure Kailee Mckinney Jr. [facility] Start: 06-23-2021 End: 06-23-2021 ambulatory Tondra Mapus Other [employer] Other Start: 06-23-2021 Telephone encounter Tondra Mapus [facility] Start: 06-20-2021 End: 06-21-2021 ambulatory TONDRA MAPUS Facility:[facility] Start: 03-24-2021 Rx Renewal Dion szymanski Work Phone: [facility] DO Work Phone: Start: 03-18-2021 End: 03-18-2021 ambulatory Tondra Mapus Other [employer] Other Start: 03-18-2021 Telephone encounter Tondra Mapus [facility] Start: 01-06-2021 Office outpatient vi sit 25 minutes Dion Griggs Work Phone: [facility] 250 DO Work Phone: Start: 03-19-2020 End: 03-20-2020 Evaluation and management of inpatient CACHORRO ROBLERO Facility:[facility] Start: 03-19-2020 Patient encounter procedure UNKNOWN PROVIDER Facility:[facility] Procedures Date Procedure Procedure Detail Performing Clinician Start: 02-06-2022 PSA screening YNES BRAN Comment on above: Performed By: #### P SAD #### [facility] [address] [place] [address] Dr. Kim Roper Start: 05-01-2020 Transurethral prostatectomy Kailee Mckinney Jr. Start: 03-18-2020 Cystoscopy Kailee hernandez Jr. Start: 02-27-2015 Screening for malign ant neoplasm of colon Dion Griggs Other Start: 11-07-2013 Screening for malign ant neoplasm of prostate Dion Griggs Other Start: 03-01-2010 Total colonoscopy Noam min E Ball Work Phone: Appendectomy Dion E Anson Work Phone: Appendectomy Kailee Valente Arthroplasty of knee Kailee Mckinney Jr. Arthroscopy of knee Dion E Anson Work Phone: Colonoscopy Kailee Valente Depression screening Benjami n Ball Other Screening for malign ant neoplasm of colon Dion Ball Other Screening for malign ant neoplasm of prostate Dion Ball Other Plan of Treatment Date Care Activity Detail Author Start: 06-30-2023 FUV, Provider: Bill Conn, Status: Pen, Time: 11:00 AM FUV, Provider: Bill Conn, Status: Pen, [facility]: [facility]:00 [facility]: Start: 07-23-2022 NURSEVST, Provider: EMILY BERGMAN FLOORING HELPER 1,[id number], Status: Pen, Time: 11:00 AM NURSEVST, Provider: EMILY BERGMAN 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 HELPER 1,[id number], Status: Pen, Time: 11:00 AM [facility] 250 DO Work Phone: Start: 06-30-2022 FUV, Provider: Bill Conn, Status: Pen, Time: 11:20 AM FUV, Provider: Bill Conn, Status: Pen, Time: 11:20 [facility] Work Phone: Start: 07-01-2021 FUV, Provider: Bill Conn, Status: Pen, Time: 1:00 PM FUV, Provider: Bill Conn, Status: Pen, Time: 1:00 PM [facility] 250 DO Work Phone: Immunizations Immunization Date Immunization Notes Care Provider Mark manzanares 12-02-2022 influenza, high dose seasonal, preservative-free Dion Griggs Other [id number] [employer] Other 12-02-2022 influenza virus vaccine, unspecified formulation [facility] 12-10-2021 Fluad Quadrivalent 0 .5 ML Intramuscular Prefilled Syringe Dion Griggs Work Phone: [facility] 250 DO Work Phone: 12-10-2021 influenza virus vaccine, split virus (incl. purified surface antigen) Dion Griggs Other [facility] [employer] Other 12-10-2021 influenza virus vaccine, unspecified formulation ANGELI GUY [facility] 12-10-2021 influenza, high dose seasonal, preservative-free Dion Griggs Other [employer] Other 12-06-2020 influenza virus vaccine, unspecified formulation ANGELI GUY [facility] 12-06-2020 influenza, high dose seasonal, preservative-free Dion Griggs Work Phone: [place] [address] DO Work Phone: Comment on above: Series: 12-05-2020 influenza virus vaccine, split virus (incl. purified surface antigen) Dion Griggs Other [facility] [employer] Other 12-05-2020 influenza virus vaccine, unspecified formulation [facility] 05-06-2020 Josephien COVID-19 Vaccine 0.5 ML Intramuscular Suspension Dion Griggs Work Phone: [facility] Comment on above: Series: 03-19-2020 diphtheria, tetanus toxoids and pertussis vaccine Dion Griggs Work Phone: [place] [address] DO Work Phone: 12-05-2019 influenza virus vaccine, split virus (incl. purified surface antigen) Dion Griggs Other [facility] [employer] Other 12-05-2019 influenza virus vaccine, unspecified formulation [facility] 11-30-2019 influenza virus vaccine, unspecified formulation ANGELI GUY [facility] 11-30-2019 influenza, high dose seasonal, preservative-free Dion Griggs Work Phone: [facility] 250 DO Work Phone: 10-31-2019 influenza virus vaccine, unspecified formulation Dion Griggs Work Phone: [facility] 11-23-2018 influenza virus vaccine, split virus (incl. purified surface antigen) Dion Anson Other [facility] [employer] Other 11-23-2018 influenza virus vaccine, unspecified formulation ANGELI GUY [facility] 11-23-2018 influenza, injectabl e, quadrivalent, preservative free Dion Griggs Work Phone: [place] [address] DO Work Phone: 10-30-2018 influenza, high dose seasonal, preservative-free Dion E Anson Work Phone: [place] [address] DO Work Phone: 04-01-2015 pneumococcal conjuga te vaccine, 13 valent Dion E Anson Work Phone: [facility] 03-01-2015 pneumococcal polysaccharide vaccine, 23 valent Dion E Anson Work Phone: [facility] Comment on above: Series: 02-27-2015 pneumococcal conjuga te vaccine, 13 valent Dion Griggs Other [facility] 02-27-2015 pneumococcal Conjuga te, unspecified formulation; 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: [Need for prophylactic vaccination against Streptococcus pneumoniae (pneumococcus)] Dion Griggs Other [facility] [employer] Other 03-01-2010 influenza virus vaccine, unspecified formulation Dion E Anson Work Phone: [place] [address] DO Work Phone: 03-01-2006 pneumococcal polysaccharide vaccine, 23 valent Dion E Anson Work Phone: [place] [address] DO Work Phone: influenza virus vaccine, unspecified formulation Dion E Anson Work Phone: [place] [address] DO Work Phone: Comment on above: 2010 Payers Date Payer Category Payer Self-pay [id number] 2017 Unknown [id number] 1960 Medicare [id number] 1959 Unknown [id number] 2.1 [id number] 1944 Unknown [id number] 2.16. [id number] 1944 Unknown [id number] 2.16. [id number] 1944 Unknown [id number] 2.16.84 [id number] 1944 Unknown [id number] 2.16.84 [id number] 1944 Unknown [id number] 2.16.84 [id number] 1944 Unknown [id number] 2.16. [id number] 1944 Unknown [id number] 2.16.8 [id number] 1944 Unknown [id number] 2.16.8 [id number] 1944 Unknown [id number] 2.16.8 [id number] 1944 Unknown [id number] 2.16.8 [id number] 1944 Unknown [id number] 2.16.8 [id number] 1944 Unknown [id number] 2.16.8 [id number] Unknown Unknown [id number] 2.16.8 [id number] Social History Date Type Detail Facility No illicit [facility] use [facility] Work Phone: Comment on above: 3 cups coffee daily, occasionl diet soda; 1 beer a month; Sex Assigned At [employer] Other Start: 03-29-2018 End: 08-26-2021 Tobacco smoking status Ex-smoker (finding) [facility] Start: 04-28-2023 Tobacco smoking status Never [facility] Start: 1945 Sex Assigned At Male [facility] Medical Equipment Procedure Code Equipment Code Equipment Origin al Text Equipment Identifier Dates Start: 04-23-2014 Functional Status Date Assessment Result Facility 04-28-2023 Functional Status N/A [facility] 02-02-2023 Functional Status N/A [facility] 08-04-2022 Functional Status N/A [facility] 02-25-2022 Functional Status N/A [facility] 08-26-2021 Functional Status N/A [facility] Clinical Notes 08-26-2021 to 04-28-2023 Note Date & Type Note Facility 04-28-2023 Hospital Discharg e instructions Patient Education 04/28/2023 10:39:28 Urodynamic Testing Urodynamic Testing Urodynamic tests are done to determine how well your lower urinary tract is working. The lower urinary tract includes your bladder and the part of your body that drains urine from the bladder (urethra). When your kidneys filter your blood, urine is stored in your bladder until you feel the urge to urinate. Urination requires coordination between the nerves and muscles of your bladder and urethra. When your lower urinary tract is working well, you should be able to: Start urinating when your bladder is full. Empty your bladder completely. Control the flow of your urine. Why do I need urodynamic testing? You may need urodynamic testing to help find the cause of any of these problems: Leaking urine (incontinence). Problems starting or stopping your urine flow. Frequent or painful urination. Frequent urinary tract infections. Being unable to empty your bladder completely. Having strong urges to pass urine (urgency). Having a weak flow of urine. What are the risks? Generally, these tests are safe. However, some of the tests have risks, including: Discomfort. Frequent urge to urinate. Bleeding. Infection. Allergic reactions to medicines or dyes (contrast material). What happens before the test? Ask your health care provider about changing or stopping your regular medicines. This is especially important if you are taking diabetes medicines or blood thinners. You may be asked to avoid urinating before coming to the test so that you arrive with a full bladder. Tell a health care provider about: ?Any allergies you have. ?All medicines you are taking, including vitamins, herbs, eye drops, creams, and pfmh-uws-iykeefr medicines. ?Whether you are or may be . What happens during the test? You may have various urodynamic tests. The tests may be done separately or may all be done during one visit. You may be given an antibiotic medicine before or after testing to help prevent infection. The types of tests that may be done include: Uroflowmetry This test measures how much urine you pass and how long it takes to pass. You will urinate into a certain type of toilet or device (flowmeter). The device will measure the volume and the time of your urine flow. These measurements will be sent to a computer that creates a graph of your urine flow. Postvoid residual measurement This test measures how much urine is left in your bladder after you urinate. The test may be done with ultrasound. In this method, sound waves and a computer will be used to create an image of your bladder. The test can also be done by inserting a thin, flexible tube (catheter) into your bladder after you urinate. The remaining urine will be removed through the catheter so it can be measured. Remaining urine will be measured in milliliters (mL). If you have more than 100 mL left in your bladder after you urinate, your bladder is not emptying as it should. Cystometric testing This test uses a type of bladder catheter that can measure pressure. You may be given a medicine to numb the area (local anesthetic). The area around the opening of your urethra will be cleaned. A urinary catheter will be passed through your urethra into your bladder and used to empty your bladder completely. A measuring catheter will be placed, and your bladder will be filled with warm, germ-free (sterile) water. Pressure measurements will be taken: ?As your bladder fills. ?When you feel the need to urinate. ?As your bladder is emptied. You may be asked to cough or bear down to check for leakage. In some cases, your bladder may be filled with a material that shows up on X-rays (contrast material) so that X-ray pictures can be taken during the test. Electromyogram This test measures the electrical activity of the nerves and muscles of your bladder and the opening of your urethra. Sticky patches (electrodes) will be placed near your rectum and urethra to measure electrical activity. The measurements will show how well your nerves are communicating with your muscles. What can I expect after the test? You should be able to go home right away and do your usual activities. You may be told to drink a glass of water every 30 minutes for the first 2 hours after testing. Taking a warm bath or using warm, wet cloths (warm compresses) may relieve any discomfort near your urethra. What do the results mean? Talk with your health care provider about what your results mean. Some common causes for abnormal results from urodynamic tests include: Enlarged prostate in men. Overactive bladder. Urinary tract infection. Nervous system diseases. Spinal cord damage. Questions to ask your health care provider Ask your health care provider, or the department that is doing the test: When will my results be ready? How will I get my results? What are my treatment options? What other tests do I need? What are my next steps? Contact a health care provider if: You have pain. You have blood in your urine. You have chills. You have a fever. Summary Urodynamic tests are done to determine how well your lower urinary tract is working. The lower urinary tract includes your bladder and urethra. You may need urodynamic testing to help find the cause of various problems with urination, such as leaking urine (incontinence) or problems starting or stopping your urine flow. You may have various urodynamic tests. The tests may be done separately or may all be done during one testing visit. Talk with your health care provider about what your results mean. Contact your health care provider if you have pain, chills, a fever, or blood in your urine. This information is not intended to replace advice given to you by your health care provider. Make sure you discuss any questions you have with your health care provider. Document Revised: 10/29/2021 Document Reviewed: 09/20/2020 [employer] Patient Education 2022 [employer]. Follow Up Care 03/26/2023 11:35:17 With:Paulino GAVIN, RUBEN Mendez, URO Address: [address] [place] [address]- [phone] When: Unknown Comments:sched urodynamics [facility] 03-17-2023 Evaluation note Encounter Date Diagnosis Assessment Notes Mar, Arteriosclerotic heart disease (ASHD) (ICD-10 - I25.10) LHC: 50% LAD - 2009 This patient is stable without activity related CP, dyspnea or lightheadedness. They are instructed to continue exercise and AHA diet plan. Continue secondary prevention measures. f/u w/ cardiology as scheduled. Mar, Primary hypertension (ICD-10 - I10) This patient is instructed to consume a healthy, low-fat, low-salt diet. They are also encouraged to continue exercise to achieve/maintain a normal BMI. Patient is instructed on home BP measurements: - rest for 5 minutes w/o talking.- positioned w/ feet on floor and arm supported.- average best 2/3 readings w/ goal < 135/85.- update office w/ home readings in 2 weeks. Mar, Type 2 diabetes mellitus with hyperglycemia (ICD-10 - E11.65) This patient is following a comprehensive diabetic treatment plan. They are checking their feet daily for calluses and nonhealing ulcers. They are being seen for yearly dilated eye examinations. Goals: SBP less than 130, LDL less than 100, FBS less than 140, A1C less than 7%. They are checking their BS daily, will which are reviewed at the office visit. 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 Requesting new machine and supplies. Mar, Type 2 diabetes mellitus with diabetic polyneuropathy (ICD-10 - E11.42) Inspect feet daily for cuts and calluses.Recommen d diabetic shoes and inserts to prevent callus formation.Fall precautions. Mar, Elevated cholesterol (ICD-10 - E78.00) Instructed on diet and exercise with continued statin therapy.Discussed the beneficial effects of lowering cholesterol in reducing the risk for cerebrovascular and cardiovascular disease. Mar, Benign prostatic hyperplasia with lower urinary tract symptoms (ICD-10 - N40.1) Increased symptoms of obstruction w/ weakened stream and hesitancy. TURP in 2020 w/o much improvement. Finasteride w/ Flomax have controlled symptoms up until recently. Scheduled for cystoscopy to help decide further treatment options. - discussed Resum, Urolift and TURP f/u Urology Mar, Hesitancy of micturition (ICD-10 - R39.11) Mar, Other obesity due to excess calories (ICD-10 - E66.09) This patient has been instructed on a low-fat, high-fiber diet. They are instructed to reduce calories, portion sizes and snacks. It is recommended that they exercise for 30 minutes, 3-5 times weekly. 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 The lower urinary tract includes the bladder and the urethra. The urethra is the tube that drains urine from the bladder. Cystoscopy is done using a thin, tube-shaped instrument with a light and camera at the end (cystoscope). The cystoscope may be hard or flexible, depending on the goal of the procedure. The cystoscope is inserted through the urethra, into the bladder. Cystoscopy may be recommended if you have: Urinary tract infections that keep coming back. Blood in the urine (hematuria). An inability to control when you urinate (urinary incontinence) or an overactive bladder. Unusual cells found in a urine sample. A blockage in the urethra, such as a urinary stone. Painful urination. An abnormality in the bladder found during an intravenous pyelogram (IVP) or CT scan. Cystoscopy may also be done to remove a sample of tissue to be examined under a microscope (biopsy). Tell a health care provider about: Any allergies you have. All medicines you are taking, including vitamins, herbs, eye drops, creams, and thpj-jcs-rreeqcx medicines. Any problems you or family members have had with anesthetic medicines. Any blood disorders you have. Any surgeries you have had. Any medical conditions you have. Whether you are or may be . What are the risks? Generally, this is a safe procedure. However, problems may occur, including: Infection. Bleeding. Allergic reactions to medicines. Damage to other structures or organs. What happens before the procedure? Medicines Ask your health care provider about: Changing or stopping your regular medicines. This is especially important if you are taking diabetes medicines or blood thinners. Taking medicines such as aspirin and ibuprofen. These medicines can thin your blood. Do not take these medicines unless your health care provider tells you to take them. Taking sprp-aeo-rykgpfe medicines, vitamins, herbs, and supplements. Tests You may have an exam or testing, such as: X-rays of the bladder, urethra, or kidneys. CT scan of the abdomen or pelvis. Urine tests to check for signs of infection. General instructions Follow instructions from your health care provider about eating or drinking restrictions. Ask your health care provider what steps will be taken to help prevent infection. These steps may include: ?Washing skin with a germ-killing soap. ?Taking antibiotic medicine. Plan to have a responsible adult take you home from the hospital or clinic. What happens during the procedure? You will be given one or more of the following: ?A medicine to help you relax (sedative). ?A medicine to numb the area (local anesthetic). The area around the opening of your urethra will be cleaned. The cystoscope will be passed through your urethra into your bladder. Germ-free (sterile) fluid will flow through the cystoscope to fill your bladder. The fluid will stretch your bladder so that your health care provider can clearly examine your bladder monterroso. Your doctor will look at the urethra and bladder. Your doctor may take a biopsy or remove stones. The cystoscope will be removed, and your bladder will be emptied. The procedure may vary among health care providers and hospitals. What can I expect after the procedure? After the procedure, it is common to have: Some soreness or pain in your abdomen and urethra. Urinary symptoms. These include: ?Mild pain or burning when you urinate. Pain should stop within a few minutes after you urinate. This may last for up to 1 week. ?A small amount of blood in your urine for several days. ?Feeling like you need to urinate but producing only a small amount of urine. Follow these instructions at home: Medicines Take oudz-wzj-uhkolgb and prescription medicines only as told by your health care provider. If you were prescribed an antibiotic medicine, take it as told by your health care provider. Do notstop taking the antibiotic even if you start to feel better. General instructions Return to your normal activities as told by your health care provider. Ask your health care provider what activities are safe for you. If you were given a sedative during the procedure, it can affect you for several hours. Do not drive or operate machinery until your health care provider says that it is safe. Watch for any blood in your urine. If the amount of blood in your urine increases, call your healthcare provider. Follow instructions from your health care provider about eating or drinking restrictions. If a tissue sample was removed for testing (biopsy) during your procedure, it is up to you to get your test results. Ask your health care provider, or the department that is doing the test, when yourresults will be ready. Drink enough fluid to keep your urine pale yellow. Keep all follow-up visits. This is important. Contact a health care provider if: You have pain that gets worse or does not get better with medicine, especially pain when you urinate. You have trouble urinating. You have more blood in your urine. Get help right away if: You have blood clots in your urine. You have abdominal pain. You have a fever or chills. You are unable to urinate. Summary Cystoscopy is a procedure that is used to help diagnose and sometimes treat conditions that affect the lower urinary tract. Cystoscopy is done using a thin, tube-shaped instrument with a light and camera at the end. After the procedure, it is common to have some soreness or pain in your abdomen and urethra. Watch for any blood in your urine. If the amount of blood in your urine increases, call your healthcare provider. If you were prescribed an antibiotic medicine, take it as told by your health care provider. Do notstop taking the antibiotic even if you start to feel better. This information is not intended to replace advice given to you by your health care provider. Make sure you discuss any questions you have with your health care provider. Document Revised: 10/29/2021 Document Reviewed: 09/27/2020 [employer] Patient Education 2022 [employer]. Follow Up Care 08/04/2022 10:55:35 With:BROOKS ANTHONY, ANGELI Montiel, URL Address: [address] [place] [address] [phone] When: Unknown Comments:sched cysto/[facility] 12-05-2023 NoteUrology Cystoscopy Cystoscopy is a procedure that is used to help diagnose and sometimes treat conditions that affect the lower urinary tract. The lower urinary tract includes the bladder and the urethra. The urethra is the tube that drains urine from the bladder. Cystoscopy is done using a thin, tube-shaped instrument with a light and camera at the end (cystoscope). The cystoscope may be hard or flexible, depending on the goal of the procedure. The cystoscope is inserted through the urethra, into the bladder. Cystoscopy may be recommended if you have: ? Urinary tract infections that keep coming back. ? Blood in the urine (hematuria). ? An inability to control when you urinate (urinary incontinence) or an overactive bladder. ? Unusual cells found in a urine sample. ? A blockage in the urethra, such as a urinary stone. ? Painful urination. ? An abnormality in the bladder found during an intravenous pyelogram (IVP) or CT scan. Cystoscopy may also be done to remove a sample of tissue to be examined under a microscope (biopsy). Tell a health care provider about: ? Any allergies you have. ? All medicines you are taking, including vitamins, herbs, eye drops, creams, and maqd-mcn-tpxaacz medicines. ? Any problems you or family members have had with anesthetic medicines. ? Any blood disorders you have. ? Any surgeries you have had. ? Any medical conditions you have. ? Whether you are or may be . What are the risks? Generally, this is a safe procedure. However, problems may occur, including: ? Infection. ? Bleeding. ? Allergic reactions to medicines. ? Damage to other structures or organs. What happens before the procedure? Medicines Ask your health care provider about: ? Changing or stopping your regular medicines. This is especially important if you are taking diabetes medicines or blood thinners. ? Taking medicines such as aspirin and ibuprofen. These medicines can thin your blood. Do not take these medicines unless your health care provider tells you to take them. ? Taking oqsy-ngn-huxjmzd medicines, vitamins, herbs, and supplements. Tests You may have an exam or testing, such as: ? X-rays of the bladder, urethra, or kidneys. ? CT scan of the abdomen or pelvis. ? Urine tests to check for signs of infection. General instructions ? Follow instructions from your health care provider about eating or drinking restrictions. ? Ask your health care provider what steps will be taken to help prevent infection. These steps mayinclude: ? Washing skin with a germ-killing soap. ? Taking antibiotic medicine. ? Plan to have a responsible adult take you home from the hospital or clinic. What happens during the procedure? ? You will be given one or more of the following: ? A medicine to help you relax (sedative). ? A medicine to numb the area (local anesthetic). ? The area around the opening of your urethra will be cleaned. ? The cystoscope will be passed through your urethra into your bladder. ? Germ-free (sterile) fluid will flow through the cystoscope to fill your bladder. The fluid will stretch your bladder so that your health care provider can clearly examine your bladder monterroso. ? Your doctor will look at the urethra and bladder. Your doctor may take a biopsy or remove stones. ? The cystoscope will be removed, and your bladder will be emptied. The procedure may vary among health care providers and hospitals. What can I expect after the procedure? After the procedure, it is common to have: ? Some soreness or pain in your abdomen and urethra. ? Urinary symptoms. These include: ? Mild pain or burning when you urinate. Pain should stop within a few minutes after you urinate. This may last for up to 1 week. ? A small amount of blood in your urine for several days. ? Feeling like you need to urinate but producing only a small amount of urine. Follow these instructions at home: Medicines ? Take dttz-njh-qzitftz and prescription medicines only as told by your health care provider. ? If you were prescribed an antibiotic medicine, take it as told by your health care provider. Do not stop taking the antibiotic even if you start to feel better. General instructions ? Return to your normal activities as told by your health care provider. Ask your health care provider what activities are safe for you. ? If you were given a sedative during the procedure, it can affect you for several hours. Do not drive or operate machinery until your health care provider says that it is safe. ? Watch for any blood in your urine. If the amount of blood in your urine increases, call your health care provider. ? Follow instructions from your health care provider about eating or drinking restrictions. ? If a tissue sample was removed for testing (biopsy) during your procedure, it is up to you to getyour test results. Ask your health care provider, or the department th (more content not included)...[facility] 12-15-2022 Evaluation note* Encounter Date Diagnosis Assessment Notes Treatment Notes Treatment Clinical Notes Nov, Dietary counseling and surveillance (ICD-10 - Z71.3) Maintaining a healthful weight material was published Nov, Type 2 diabetes mellitus with hyperglycemia (ICD-10 - E11.65) Managing type 2 diabetes material was published 1. Controlled, a Type 2 diabetes with A1c of 7.0% for age comorbidities. 2. Blood glucose levels stable, no changes. Note: did not qualify for pap through BI for sglt2 3. Patient is alert, oriented and receptive to making changes or counseling. Notes: Seen for an assessment of current glucose pattern, changes in treatment plan, with this time spent in counseling and coordination of care related to diabetes, risks, and benefits of treatment, medications, and side effects. TOPICS REVIEWED: 1. Time was spent reviewing: a. Basic concepts of diabetes, progressive beta cell , concepts of basal/bolus/correc tive insulin requirements. Basal: The goal is fasting blood glucose of 90-130mg. IF fasting blood glucose starts to run under 100mg 3x's/ week, decrease dose by 10%. Bolus: The goal is to hold the blood glucose level steady meal to meal. If pt. is going to have increased physical activity after a meal, decrease the schedule meal dose prior to the activity by 30-50%. If pt. skips a meal do not take this dose. Correction: The goal is to correct an elevated glucose back into the 100-150mg range b. Nutrition: Concepts of healthy diet, encouraged to decrease saturated fat in diet and increase non-starchy vegetables and fruits in diet. BMI: Pt. needs to select one small change to decrease caloric intake or increase physical activity to help decrease weight. c. Correct treatment of hypoglycemia, carry a glucose source at all times on your person, in vehicles, and at bedside. Can use glucose tablets/4, four ounces of pop or juice equal to 15 G of carbohydrate. Blood glucose should be 100 mg/dl or higher when driving. d. ADA glucose goals for age and medical complexity reviewed e. Patient questions addressed 2. Activity/exercise: Encouraged to start any form of physical activity. Start low level and increase slowly to a minimal goal of 150 minutes/week. Limit activity to what is allowed by other issues such as cardiac, pulmonary or orthopedic restrictions. 3. Standards of care: Reminded to have an annual dilated eye exam, A1C every 3-6 months, urine testing for microalbumin once/year, check feet daily and report any cuts or sores that do not appear to be healing. 4. Meter: Plan to check blood glucose: Please check blood glucose levels 1 time/day. Back to back meals reveal effectiveness of bolus dosing. 5. [facility] per pt request. Contact office if any issues or concerns with patterns of hypoglycemia, hyperglycemia, or diabetes medication issues. 6. Prescriptions: LIT PAP: Curt Oliva; 2023 LIT PAP CARLOS given to patient for completion and return to office aylin with required documentation. No other needs at this time. 7. Prescriptions will not be filled unless you are compliant with follow up appointments or have a follow up appointment scheduled as ordered by your provider. Refills should be requested at the time of your visit. Nov, Hyperlipidemia (ICD-10 - E78.5) Managing your cholesterol material was published 05/2022 LDL 63 at goal, on statin. Nov, HTN (hypertension) (ICD-10 - I10) Managing high blood pressure material was published on cindy; Pt reports checked bp at home this morning and was 127/75. Reviewed continue to check bp at home, if bp >140/90 f/u with pcp for further evaluation. 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) Nov, Vitamin B 12 deficiency (ICD-10 - E53.8) 05/2022 vit b 12 281 at target Nov, BMI 33.0-33.9,adult (ICD-10 - Z68.33) Setting weight-loss goals material was published [employer] Other 06-22-2023 Evaluation note* Encounter Date Diagnosis Assessment Notes Treatment Notes Treatment Clinical Notes Jul, Acute bacterial conjunctivitis of right eye (ICD-10 - H10.31) Wipe w/ warm wash cloth in morning Artificial tears Frequent hand washing Notify office or see environmental monitoring specialist if develop pain, blurred vision or fails to improve Jul, Viral URI (ICD-10 - J06.9) Instructed to use Robitussin or Mucinex for cough, saline or Flonase NS for congestion, Tylenol for pain and fever. Jul, Type 2 diabetes mellitus with hyperglycemia (ICD-10 - E11.65) Acute infection may cause BS to increase temporarily. No adjustment in treatment necessary [employer] Other 06-06-2023 Hospital Discharge instructions Patient Education 08/04/2022 10:49:23 Benign Prostatic Hyperplasia Benign Prostatic Hyperplasia Benign prostatic hyperplasia (BPH) is an enlarged prostate gland that is caused by the normal agingprocess. The prostate may get bigger as a man gets older. The condition is not caused by cancer. The prostate is a walnut-sized gland that is involved in the production of semen. It is located in front of the rectum and below the bladder. The bladder stores urine. The urethra carries stored urine ou t of the body. An enlarged prostate can press on the urethra. This can make it harder to pass urine. The buildup of urine in the bladder can cause infection. Back pressure and infection may progress to bladder damage and kidney (renal) failure. What are the causes? This condition is part of the normal aging process. However, not all men develop problems from thiscondition. If the prostate enlarges away from the urethra, urine flow will not be blocked. If it enlarges toward the urethra and compresses it, there will be problems passing urine. What increases the risk? This condition is more likely to develop in men older than 50 years. What are the signs or symptoms? Symptoms of this condition include: Getting up often during the night to urinate. Needing to urinate frequently during the day. Difficulty starting urine flow. Decrease in size and strength of your urine stream. Leaking (dribbling) after urinating. Inability to pass urine. This needs immediate treatment. Inability to completely empty your bladder. Pain when you pass urine. This is more common if there is also an infection. Urinary tract infection (UTI). How is this diagnosed? This condition is diagnosed based on your medical history, a physical exam, and your symptoms. Tests will also be done, such as: A post-void bladder scan. This measures any amount of urine that may remain in your bladder after you finish urinating. A digital rectal exam. In a rectal exam, your health care provider checks your prostate by putting a lubricated, gloved finger into your rectum to feel the back of your prostate gland. This exam detects the size of your gland and any abnormal lumps or growths. An exam of your urine (urinalysis). A prostate specific antigen (PSA) screening. This is a blood test used to screen for prostate cancer. An ultrasound. This test uses sound waves to electronically produce a picture of your prostate gland. Your health care provider may refer you to a specialist in kidney and prostate diseases (urologist). How is this treated? Once symptoms begin, your health care provider will monitor your condition (active surveillance or watchful waiting). Treatment for this condition will depend on the severity of your condition. Treatment may include: Observation and yearly exams. This may be the only treatment needed if your condition and symptoms are mild. Medicines to relieve your symptoms, including: ?Medicines to shrink the prostate. ?Medicines to relax the muscle of the prostate. Surgery in severe cases. Surgery may include: ?Prostatectomy. In this procedure, the prostate tissue is removed completely through an open incision or with a laparoscope or robotics. ?Transurethral resection of the prostate (TURP). In this procedure, a tool is inserted through the opening at the tip of the penis (urethra). It is used to cut away tissue of the inner core of the prostate. The pieces are removed through the same opening of the penis. This removes the blockage. ?Transurethral incision (TUIP). In this procedure, small cuts are made in the prostate. This lessens the prostate's pressure on the urethra. ?Transurethral microwave thermotherapy (TUMT). This procedure uses microwaves to create heat. The heat destroys and removes a small amount of prostate tissue. ?Transurethral needle ablation (TUNA). This procedure uses radio frequencies to destroy and remove a small amount of prostate tissue. ?Interstitial laser coagulation (ILC). This procedure uses a laser to destroy and remove a small amount of prostate tissue. ?Transurethral electrovaporization (TUVP). This procedure uses electrodes to destroy and remove a small amount of prostate tissue. ?Prostatic urethral lift. This procedure inserts an implant to push the lobes of the prostate away from the urethra. Follow these instructions at home: Take ywrj-ueh-vmwclqk and prescription medicines only as told by your health care provider. Monitor your symptoms for any changes. Contact your health care provider with any changes. Avoid drinking large amounts of liquid before going to bed or out in public. Avoid or reduce how much caffeine or alcohol you drink. Give yourself time when you urinate. Keep all follow-up visits. This is important. Contact a health care provider if: You have unexplained back pain. Your symptoms do not get better with treatment. You develop side effects from the medicine you are taking. Your urine becomes very dark or has a bad smell. Your lower abdomen becomes distended and you have trouble passing urine. Get help right away if: You have a fever or chills. You suddenly cannot urinate. You feel light-headed or very dizzy, or you faint. There are large amounts of blood or clots in your urine. Your urinary problems become hard to manage. You develop moderate to severe low back or flank pain. The flank is the side of your body between the ribs and the hip. These symptoms may be an emergency. Get help right away. Call 911. Do not wait to see if the symptoms will go away. Do not drive yourself to the hospital. Summary Benign prostatic hyperplasia (BPH) is an enlarged prostate that is caused by the normal aging process. It is not caused by cancer. An enlarged prostate can press on the urethra. This can make it hard to pass urine. This condition is more likely to develop in men older than 50 years. Get help right away if you suddenly cannot urinate. This information is not intended to replace advice given to you by your health care provider. Make sure you discuss any questions you have with your health care provider. Document Revised: 09/03/2021 Document Reviewed: 09/03/2021 [employer] Patient Education 2022 [employer]. Follow Up Care 02/25/2022 10:18:55 With:ANGELI GUY PA-C, URL Address: When[facility]1 [facility] Evaluation note* Encounter Date Diagnosis Assessment Notes Treatment Notes Treatment Clinical Notes June, Arteriosclerotic hea rt disease (ASHD) (ICD-10 - I25.10) LHC: 50% - 2009 [employer] Other 04-17-2023 Evaluation note* Encounter Date Diagnosis Assessment Notes Treatment Notes Treatment Clinical Notes May, Dietary counseling and surveillance (ICD-10 - Z71.3) Maintaining a healthful weight material was published May, Type 2 diabetes mellitus with hyperglycemia (ICD-10 - E11.65) Managing type 2 diabetes material was published 1. Controlled, a Type 2 diabetes with A1c of 7.1% for age comorbidities. 2. Blood glucose levels stable, no changes. Note: did not qualify for pap through BI for sglt2 3. Patient is alert, oriented and receptive to making changes or counseling. Notes: Seen for an assessment of current glucose pattern, changes in treatment plan, with this time spent in counseling and coordination of care related to diabetes, risks, and benefits of treatment, medications, and side effects. TOPICS REVIEWED: 1. Time was spent reviewing: a. Basic concepts of diabetes, progressive beta cell , concepts of basal/bolus/correc tive insulin requirements. Basal: The goal is fasting blood glucose of 90-130mg. IF fasting blood glucose starts to run under 100mg 3x's/ week, decrease dose by 10%. Bolus: The goal is to hold the blood glucose level steady meal to meal. If pt. is going to have increased physical activity after a meal, decrease the schedule meal dose prior to the activity by 30-50%. If pt. skips a meal do not take this dose. Correction: The goal is to correct an elevated glucose back into the 100-150mg range b. Nutrition: Concepts of healthy diet, encouraged to decrease saturated fat in diet and increase non-starchy vegetables and fruits in diet. BMI: Pt. needs to select one small change to decrease caloric intake or increase physical activity to help decrease weight. c. Correct treatment of hypoglycemia, carry a glucose source at all times on your person, in vehicles, and at bedside. Can use glucose tablets/4, four ounces of pop or juice equal to 15 G of carbohydrate. Blood glucose should be 100 mg/dl or higher when driving. d. ADA glucose goals for age and medical complexity reviewed e. Patient questions addressed 2. Activity/exercise: Encouraged to start any form of physical activity. Start low level and increase slowly to a minimal goal of 150 minutes/week. Limit activity to what is allowed by other issues such as cardiac, pulmonary or orthopedic restrictions. 3. Standards of care: Reminded to have an annual dilated eye exam, A1C every 3-6 months, urine testing for microalbumin once/year, check feet daily and report any cuts or sores that do not appear to be healing. 4. Meter: Plan to check blood glucose: Please check blood glucose levels 1 time/day. Back to back meals reveal effectiveness of bolus dosing. 5. [facility] per pt request. Contact office if any issues or concerns with patterns of hypoglycemia, hyperglycemia, or diabetes medication issues. 6. Prescriptions: LIT PAP: Basaglar, Curt; 7. Prescriptions will not be filled unless you are compliant with follow up appointments or have a follow up appointment scheduled as ordered by your provider. Refills should be requested at the time of your visit. May, Hyperlipidemia (ICD-10 - E78.5) Managing your cholesterol material was published 05/2022 LDL 63 at goal, on statin. May, HTN (hypertension) (ICD-10 - I10) Managing high blood pressure material was published on cindy; uncontrolled- f/u with pcp for further recommendation. May, snf current use of insulin (ICD-10 - Z79.4) May, Vitamin B 12 deficiency (ICD-10 - E53.8) 05/2022 vit b 12 281 at target May, BMI 33.0-33.9,adult (ICD-10 - Z68.33) Setting weight-loss goals material was published [employer] Other 12-28-2022 Hospital Discharge instructions Patient Education 02/25/2022 10:01:33 Urodynamic Testing Urodynamic Testing What is urodynamic testing? Urodynamic tests are done to determine how well your lower urinary tract is working. The lower urinary tract includes your bladder and the part of your body that drains urine from the bladder (urethra). When your kidneys filter your blood, urine is stored in your bladder until you feel the urge to urinate. Urination requires coordination between the nerves and muscles of your bladder and urethra. When your lower urinary tract is working well, you should be able to: Start urinating when your bladder is full. Empty your bladder completely. Control the flow of your urine. Why do I need urodynamic testing? You may need urodynamic testing to help find the cause of any of these problems: Leaking urine (incontinence). Problems starting or stopping your urine flow. Frequent or painful urination. Frequent urinary tract infections. Being unable to empty your bladder completely. Having strong urges to pass urine (urgency). Having a weak flow of urine. How do I prepare for the tests? Ask your health care provider about changing or stopping your regular medicines. This is especiallyimportant if you are taking diabetes medicines or blood thinners. You may be asked to avoid urinating before coming to the test so that you arrive with a full bladder. Tell a health care provider about: ?Any allergies you have. ?All medicines you are taking, including vitamins, herbs, eye drops, creams, and voxw-alc-nlujeuz medicines. ?Whether you are or may be . What are the risks of this testing? Generally, these tests are safe. However, some of the tests have risks, including: Discomfort. Frequent urge to urinate. Bleeding. Infection. Allergic reactions to medicines or dyes (contrast material). How is urodynamic testing done? You may have various urodynamic tests. The tests may be done separately or may all be done during one testing visit. You may be given an antibiotic medicine before or after testing to help prevent infection. The types of tests that may be done include: Uroflowmetry This test measures how much urine you pass and how long it takes to pass. You will urinate into a certain type of toilet or device (flowmeter). The device will measure the volume and the time of your urine flow. These measurements will be sent to a computer that creates a graph of your urine flow. Postvoid residual measurement This test measures how much urine is left in your bladder after you urinate. The test may be done with ultrasound. In this method, sound waves and a computer will be used to create an image of your bladder. The test can also be done by inserting a thin, flexible tube (catheter) into your bladder after youurinate. The remaining urine will be removed through the catheter so it can be measured. Remaining urine will be measured in milliliters (mL). If you have more than 100 mL left in your bladder after you urinate, your bladder is not emptying as it should. Cystometric testing This test uses a type of bladder catheter that can measure pressure. You may be given a medicine to numb the area (local anesthetic). The area around the opening of your urethra will be cleaned. A urinary catheter will be passed through your urethra into your bladder and used to empty your bladder completely. Then a measuring catheter will be placed, and your bladder will be filled with warm, germ-free (sterile) water. Pressure measurements will be taken: ?As your bladder fills. ?When you feel the need to urinate. ?As your bladder is emptied. You may be asked to cough or bear down to check for leakage. In some cases, your bladder may be filled with a material that shows up on X- rays (contrast material) so that X-ray pictures can be taken during the test. Electromyogram This test measures the electrical activity of the nerves and muscles of your bladder and the opening of your urethra. Sticky patches (electrodes) will be placed near your rectum and urethra to measure electrical activity. The measurements will show how well your nerves are communicating with your muscles. What happens after the testing? You should be able to go home right away and do your usual activities. You may be told to drink a glass of water every 30 minutes for the first 2 hours after testing. Taking a warm bath or using warm, wet cloths (warm compresses) may relieve any discomfort near yoururethra. Contact your health care provider if you have: ?Pain. ?Blood in your urine. ?Chills. ?Fever. What do the results mean? Talk with your health care provider about what your results mean. Some common causes for abnormal results from urodynamic tests include: Enlarged prostate in men. Overactive bladder. Urinary tract infection. Nervous system diseases. Spinal cord damage. Questions to ask your health care provider Ask your health care provider, or the department that is doing the test: When will my results be ready? How will I get my results? What are my treatment options? What other tests do I need? What are my next steps? Summary Urodynamic tests are done to determine how well your lower urinary tract is working. The lower urinary tract includes your bladder and urethra. You may need urodynamic testing to help find the cause of various problems with urination, such as leaking urine (incontinence) or problems starting or stopping your urine flow. You may have various urodynamic tests. The tests may be done separately or may all be done during one testing visit. Talk with your health care provider about what your results mean. Contact your health care provider if you have pain, chills, a fever, or blood in your urine. This information is not intended to replace advice given to you by your health care provider. Make sure you discuss any questions you have with your health care provider. Document Released: 12/13/2007 Document Revised: 06/06/2019 Document Reviewed: 12/20/2017 [employer] Patient Education 2020 [employer]. Follow Up Care 08/26/2021 10:57:16 With:ANGELI GUY PA-C, URL Address: [address] [place] [address] When: Unknown [facility] 06-28-2022 Hospital Discharge instructions Patient Education 08/26/2021 10:48:10 Hematuria, Adult Hematuria, Adult Hematuria is blood in the urine. Blood may be visible in the urine, or it may be identified with a test. This condition can be caused by infections of the bladder, urethra, kidney, or prostate. Otherpossible causes include: Kidney stones. Cancer of the urinary tract. Too much calcium in the urine. Conditions that are passed from parent to child (inherited conditions). Exercise that requires a lot of energy. Infections can usually be treated with medicine, and a kidney stone usually will pass through your urine. If neither of these is the cause of your hematuria, more tests may be needed to identify the cause of your symptoms. It is very important to tell your health care provider about any blood in your urine, even if it ispainless or the blood stops without treatment. Blood in the urine, when it happens and then stops and then happens again, can be a symptom of a very serious condition, including cancer. There is no pain in the initial stages of many urinary cancers. Follow these instructions at home: Medicines Take stmj-nbq-dhrpeia and prescription medicines only as told by your health care provider. If you were prescribed an antibiotic medicine, take it as told by your health care provider. Do notstop taking the antibiotic even if you start to feel better. Eating and drinking Drink enough fluid to keep your urine clear or pale yellow. It is recommended that you drink 3 4 quarts (2.8 3.8 L) a day. If you have been diagnosed with an infection, it is recommended that you drink cranberry juice in addition to large amounts of water. Avoid caffeine, tea, and carbonated beverages. These tend to irritate the bladder. Avoid alcohol because it may irritate the prostate (men). General instructions If you have been diagnosed with a kidney stone, follow your health care provider's instructions about straining your urine to catch the stone. Empty your bladder often. Avoid holding urine for long periods of time. If you are female: ?After a bowel movement, wipe from front to back and use each piece of toilet paper only once. ?Empty your bladder before and after sex. Pay attention to any changes in your symptoms. Tell your health care provider about any changes or any new symptoms. It is your responsibility to get your test results. Ask your health care provider, or the department performing the test, when your results will be ready. Keep all follow-up visits as told by your health care provider. This is important. Contact a health care provider if: You develop back pain. You have a fever. You have nausea or vomiting. Your symptoms do not improve after 3 days. Your symptoms get worse. Get help right away if: You develop severe vomiting and are unable take medicine without vomiting. You develop severe pain in your back or abdomen even though you are taking medicine. You pass a large amount of blood in your urine. You pass blood clots in your urine. You feel very weak or like you might faint. You faint. Summary Hematuria is blood in the urine. It has many possible causes. It is very important that you tell your health care provider about any blood in your urine, even ifit is painless or the blood stops without treatment. Take snuu-ita-zcbrmog and prescription medicines only as told by your health care provider. Drink enough fluid to keep your urine clear or pale yellow. This information is not intended to replace advice given to you by your health care provider. Make sure you discuss any questions you have with your health care provider. Document Released: 02/15/2006 Document Revised: 07/12/2019 Document Reviewed: 03/20/2017 [employer] Patient Education 2020 [employer] Follow Up Care 02/25/2021 11:22:41 With:Hank Robbins MD, Kailee Szymanski, URO Address: [facility] [address], [place] [address]- [phone] When:02/25/2022 [facility] evaluation + Plan note Future Appointments Appointment Date:03/10/2022 10:15:00 AM Scheduled Provider:Kailee Mckinney Jr., MD Location:[facility] Appointment Type:URO Office Visit Diagnostic Tests Pending * PSA Total 08/26/21 [facility] evaluation + Plan note Future Appointments Appointment Date:08/04/2022 10:00:00 AM Scheduled Provider:ANGELI GUY PA-C Location:[facility] Appointment Type:URO Office Visit [facility] evaluation + Plan note Future Appointments Appointment Date:02/03/2023 01:00:00 PM Scheduled Provider:ANGELI GUY PA-C Location:[facility] Appointment Type:URO Office Visit [facility] evaluation + Plan note Future Appointments Appointment Date:04/28/2023 10:00:00 AM Scheduled Provider:Sara Bob MD Location:[facility] Appointment Type:URO Office Visit [facility] Evaluation noteNo InformationNort [employer] Other Evaluation noteNoCompete Other Evaluation noteNo assessment information available [facility] Work Phone: [facility] general Narrative - Reported* Type Description Date Medical History hypertension Medical History hyperlipidemia Medical History DM2 Medical History obesity Medical History CAD- 50% occlusion LAD-Sees Dr Keila oro Surgical History appendectomy Surgical History RT knee surgery Surgical History arthroscopic knee surgery, left 01/17 Surgical History Cystoscopy 05/01/2020 Hospitalization History see above surgery [facility] Other [facility] general Narrative - Reported* Type Description Date Medical History CAD- 50% occlusion LAD-Sees Dr Keila oro Medical History 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, without long-term current use of insulin Medical History Obstructive sleep apnea Medical History Gastro-esophageal re flux disease with esophagitis, without bleeding Medical History Essential hypertension Medical History Hyperlipemia, mixed Medical History Arteriosclerotic heart disease ( ASHD) Medical History Benign non-nodular p rostatic hyperplasia with lower urinary tract symptoms Medical History Arthritis of knee, right Medical History Pernicious anemia Medical History Schatzki's ring Surgical History appendectomy Surgical History RT knee surgery Surgical History arthroscopic knee surgery, left Surgical History Cystoscopy 05/01/2020 Surgical History colonoscopy 2009 Surgical History EGD 1997 Hospitalization History see above surgery [facility] [employer] Other History general [facility] - [facility] [address] [facility] [employer] Other Hospital course Narrative No data available for this section [facility] Discharge instructions No data available for this section [facility] [employer] note No data available for this section [facility] Summary Purpose Family History No Family History Records FoundUnknown Family Member Name Dates Details Family history of arterioscl erotic cardiovascular disease: Mother, Father(V17.49, Z82.49) Status:Active Unknown Family Member Name Dates Details Family history of arterioscl erotic cardiovascular disease: Mother, Father(V17.49, Z82.49) Status:Active Unknown Family Member Name Dates Details Family history of arterioscl erotic cardiovascular disease: Mother, Father(V17.49, Z82.49) Status:Active Unknown Family Member Name Dates Details Family history of arterioscl erotic cardiovascular disease: Mother, Father(V17.49, Z82.49) Status:Active Unknown Family Member Name Dates Details Family history of arterioscl erotic cardiovascular disease: Mother, Father(V17.49, Z82.49) Status:Active Relationship Condition Age at Onset Recorded Date/T holden father Unknown Hypertension Unknown History of stroke Unknown Not Specified Heart disease Unknown Unknown Advance Directives No Advanced Directives Records Found Advance Directive Response Recorded Date/ Time Advance Directives No August 04 8 10:15am Chief Complaint * KAREN ESCALONA is being seen for a 9 month follow-up of. * Patient is in the office for follow-up for the problems noted below accompanied by his . He reports no cardiovascular events of concern. He has a cold which is temporary. His weight is up 10 pounds from last visit despite regular activities but has not been watching his diet. He had a set of blood work this past summer done through his PCP which we requested. He denies angina orthopnea PND lower extremity edema. He has no palpitations or syncope. His examination is only remarkable for obesity. His diabetes seems to be under control managed by PCP. * ASSESSMENT AND PLAN: * 1. Hypertension on multiple medications, under control. Medications have been well-tolerated * 2. Hyperlipidemia, on statin therapy, under control. Labs from PCP were requested * 3. Diabetes, managed by [facility] clinic at [facility] * 4. Obesity. Encouraged more weight control with diet and exercise. His weight has increased 10 pounds from last visit, encouragement provided to reduce calorie consumption since he seems to be physically active * 5. Coronary artery disease with 50% LAD stenosis in 2009 cardiac catheterization, nuclear stress test 2020 was normal risk factor have been aggressively targeted * Bill Conn MD, FACC * KAREN ESCALONA is being seen for a 9 month follow-up of. * Patient is in the office for follow-up for the problems noted below accompanied by his . He reports no cardiovascular events of concern. He has a cold which is temporary. His weight is up 10 pounds from last visit despite regular activities but has not been watching his diet. He had a set of blood work this past summer done through his PCP which we requested. He denies angina orthopnea PND lower extremity edema. He has no palpitations or syncope. His examination is only remarkable for obesity. His diabetes seems to be under control managed by PCP. * ASSESSMENT AND PLAN: * 1. Hypertension on multiple medications, under control. Medications have been well-tolerated * 2. Hyperlipidemia, on statin therapy, under control. Labs from PCP were requested * 3. Diabetes, managed by [facility] clinic at [facility] * 4. Obesity. Encouraged more weight control with diet and exercise. His weight has increased 10 pounds from last visit, encouragement provided to reduce calorie consumption since he seems to be physically active * 5. Coronary artery disease with 50% LAD stenosis in 2009 cardiac catheterization, nuclear stress test 2020 was normal risk factor have been aggressively targeted * Bill Conn MD, FACC * KAREN ESCALONA is being seen for an annual follow-up of. * Patient is in the office for follow-up for the problems noted below accompanied by his . Recently has been having pain in the back, left arm and left lower extremities. This clearly indicates spinal disease problem for which I directed him to his PCP to be seen as soon as possible. As result of his pain his pressure is elevated at home and in the office today. He is on lisinopril 20 mg daily.He has no indication of angina pectoris orthopnea PND or palpitations. No indication of active coronary artery disease. His weight is unchanged from last visit and encouragement to lose weight with more prudent diet and low calorie count is recommended. * ASSESSMENT AND PLAN: * 1. Hypertension currently uncontrolled on lisinopril 20 mg daily. We will add amlodipine 5 mg dailyand follow his blood pressure readings. The reason for his uncontrolled hypertension is likely his chronic back pain * 2. Hyperlipidemia, on statin therapy, under control. * 3. Diabetes, managed by diabetes clinic at [facility], recent A1c 7.2 * 4. Obesity. Encouraged more weight control with diet and exercise. His weight has increased 10 pounds from last visit, encouragement provided to reduce calorie consumption since he seems to be physically active * 5. Coronary artery disease with 50% LAD stenosis in 2009 cardiac catheterization, nuclear stress test 2020 was normal risk factor have been aggressively targeted * 6. Recent development of significant back pain left arm pain and left lower extremity pain. Patientis scheduled to see his PCP soon. The patient is are concerned about this being cardiac in origin the nature of the symptoms does not point out cardiac cause. * Bill Conn MD, FACC * KAREN ESCALONA is being seen for hypertension. * Patient is in the office for follow-up for hypertension management. We added amlodipine recently and his blood pressure is currently under control with no side effects. We will place the patient's ulises combination therapy of amlodipine and CINDY inhibitor in the form of Lotrel for simplicity. Patientwas advised to continue to work on his weight since he is still obese. Chief Complaint and Reason for Visit Chief Complaint Face To Face For Cpa p Supplies Additional Source Comments (unrecognized sect ion and content) No Status Records FoundNo Status Records FoundNo Status Records FoundNo Status Records FoundNo Status Records FoundNo Status Records FoundNo Status Records Found INFORMATION SOURCE (unrecogn ized section and content) DATE CREATED AUTHOR 08/16/2019 [facility] DATE CREATED AUTHOR AUTHOR'S ORGANIZ ATION 03/26/2020 [employer] DATE CREATED AUTHOR AUTHOR'S ORGANIZ ATION 06/15/2022 [facility] DATE CREATED AUTHOR AUTHOR'S ORGANIZ ATION 07/01/2022 [facility] DATE CREATED AUTHOR AUTHOR'S ORGANIZ ATION 07/02/2022 [employer] DATE CREATED AUTHOR AUTHOR'S ORGANIZ ATION 04/15/[address] [facility] DATE CREATED AUTHOR AUTHOR'S ORGANIZ ATION 05/09/2023 [facility] REASON FOR VISIT (unrecogniz ed section and content) lab resultslab resultsTKM - PRIOR AUTH FOR TRULICITY VS LIT PAPDM 6 month follow up, Type 2 IDDM FOLLOW UP with [employer], OB TECH-C, BC-ADMNo InformationNo Informationpink eyeFLU SHOTDM 6 month follow up, Type 2 IDDM FOLLOW UP with [employer] [employer], OB TECH-C, BC-ADMTKM please callface to face for CPAP Supplies Care Team (unrecognized sect ion and content) Team Status: Active Member Role Status Dates Dion Griggs DO Primary Care Provider Active Team Status: Inactive Member Role Status Dates Dion Griggs DO Attending Provider Active Sta rt: March 17, 2023 End: March 17, 2023 Goals (unrecognized section and content) Goals may be documented in a n alternate section FOR RECORDS PERTAINING TO PATIENTS WHO ARE OR HAVE BEEN ENROLLED IN A CHEMICAL DEPENDENCY/SUBSTANCEABUSE PROGRAM, SOME INFORMATION MAY BE OMITTED. This clinical summary was aggregated from multiple sources. Caution should be exercised in using it in the provision of clinical care. This summary normalizes information from multiple sources, and as a consequence, information in this document may materially change the coding, format and clinical context of patient data. In addition, data may be omitted in some cases. CLINICAL DECISIONS SHOULD BE BASED ON THE PRIMARY CLINICAL RECORDS. [employer] provides no warranty or guarantee of the accuracy or completeness of information in this document.
[2023-05-20 18:35] LABS: Bacteria Urine MODERATE #/HPF (NONE SEEN); Cast Seen? NONE SEEN #/LPF (NONE SEEN); Crystals Seen? None Seen #/HPF (None Seen); Mucus Urine NONE SEEN (NONE SEEN); Squamous Epithelial Cell Urine NONE SEEN #/LPF (NONE/RARE)
[2023-05-20 18:36] LABS: Urine Culture Indicated YES
[2023-05-20 18:39] LABS: Basophils Absolute Auto 0.1 10^3/uL (0.0-0.1); Basophils Percent Auto 0.6 % (0.2-2.0); Eosinophils Absolute Auto 0.1 10^3/uL (0.0-0.7); Eosinophils Percent Auto 0.9 % (0.9-7.0); Hematocrit 42.2 % (42.0-54.0); Hemoglobin 14.2 g/dL (14.0-18.0); Immature Granulocytes Abs Auto 0.06 10^3/uL (0.00-0.03); Immature Granulocytes Pct Auto 0.6 % (0.0-0.5); Lymphocytes Absolute Auto 0.9 10^3/uL (1.2-3.8); Lymphocytes Percent Auto 9.1 % (20.5-60.0); Mean Corpuscular HGB Conc 33.6 g/dL (29.9-35.2); Mean Corpuscular Hemoglobin 29.2 pg (25.9-34.0); Mean Corpuscular Volume 86.8 fL (80.0-94.0); Mean Platelet Volume 8.5 fL (9.5-13.5); Monocytes Absolute Auto 0.9 10^3/uL (0.3-0.8); Monocytes Percent Auto 9.1 % (1.7-12.0); Neutrophils Absolute Auto 7.9 10^3/uL (1.4-6.5); Neutrophils Percent Auto 79.7 % (43.0-75.0); Platelet Count 276 10^3/uL (150-450); Red Blood Count 4.86 10^6/uL (4.70-6.10); Red Cell Distribution Width 13.2 % (11.0-15.0); White Blood Count 9.9 10^3/uL (4.0-11.0)
[2023-05-20] MEDS: 0.9 % SODIUM CHLORIDE 1,000 ML 999 ML IV (18:44)
[2023-05-20] MEDS: ONDANSETRON PF 4 MG/2 ML VIAL IV (18:44)
[2023-05-20] MEDS: HYDROMORPHONE HCL 0.5 MG/0.5 ML SYRINGE IV (18:44)
[2023-05-20 18:56] LABS: Alanine Aminotransferase 35 U/L (16-63); Albumin Level 3.8 g/dL (3.4-5.0); Alkaline Phosphatase 55 U/L (46-116); Anion Gap 14.7; Aspartate Amino Transferase 17 U/L (15-37); BUN Creatinine Ratio 14.7; Bilirubin Total 0.6 mg/dL (0.2-1.0); Calcium 8.6 mg/dL (8.5-10.1); Carbon Dioxide 25.2 mmol/L (21.0-32.0); Chloride 101 mmol/L (98-107); Estimated GFR (African America >60 (>=60); Estimated GFR (Non-African Ame >60 (>=60); Globulin 3.7 g/dL; Glucose 228 mg/dL (74-106); Potassium 3.9 mmol/L (3.5-5.1); Sodium 137 mmol/L (136-145); Total Protein 7.5 g/dL (6.4-8.2)
[2023-05-20 19:01] LABS: Lactate/Lactic Acid 2.1 mmol/L (0.4-2.0)
[2023-05-20] MEDS: CIPROFLOXACIN IN 5 % DEXTROSE 400 MG/200 ML PIGGYBACK 200 MG IV (19:40)
== END 2023-05-20 20:44 | disposition home or self-care (01) ==
PROVIDERS: Physician Assistant; Emergency Provider Emergency Medicine; PCP Internal Medicine
DX: N39.0 Urinary tract infection, site not specified (principal); N31.9 Neuromuscular dysfunction of bladder, unspecified; Z86.16 Personal history of COVID-19
CPT/HCPCS: 36415; 74176; 80053; 81001; 83605; 83690; 85025; 87040; 87086; 87150; 87186; 96361; 96365; 96375; 99285; J1170

== ENCOUNTER 2023-05-24 12:35 | Emergency (ER) | payer MEDICARE, SELFPAY ==
[2023-05-24 12:52] VITALS: BP 168/108; PULSE 76; RESP 14; TEMP 36.6; O2SAT 96; BMI 32.3
--- OUTSIDE RECORDS SUMMARY | 2023-05-24 13:02 | XMS_ITS | CCD ---
Author Organization [facility] Care Team Providers Care Crop Adjuster Name Role Phone CACHORRO ROBLERO Referring Unavailable CLIFF RODRIGUEZ Attending Unavailable PROVIDER, UNKNOWN Admitting Unavailable PROVIDER, UNKNOWN Attending Unavailable PROVIDER, UNKNOWN Admitting Unavailable PROVIDER, UNKNOWN Admitting Unavailable PROVIDER, UNKNOWN Attending Unavailable Dion Griggs Unavailable Unavailable Unavailable Mapus, Tondra Unavailable DION GRIGGS Primary Care Physician MAPUS, TONDRA Admitting Unavailable MAPUS, TONDRA Attending [...] Bill Conn Referring Unavailable Dr. Dion Griggs [facility] Unavai lable Mapus, Tondra K [...] physicia Propensity to adverse reactions 4 Comment:Done [email or web address] Other Medications Current Medications Medication Drug Class(es) [...] Daily, # 90 tab(s), Refills(s) 3, Pharmacy: [facility], 168, cm, 08/04/22 10:04:00 EDT, Height/Length [...] Status: Ordered take 2 tablets by mo [facility] once at breakfast, then take 1 tablet [...] Daily, # 30 cap(s), Refills(s) 11, Pharmacy: [facility]/pharmacy #[id number], 168, cm, 02/25/22 9:50:00 EST, Height/Length [...] sources) Long-term current use of insulin; 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] Episodic Other aftercare (4 sources) correction (current) use of insulin Episodic Other aftercare (4 sources) Long-term current use of drug therapy; 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: [Other 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 exterminator (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) drug therapy] Episodic Other diseases of [...] Facility ED Note-Physicianon 05-10-19 24 ED Note-Physician [id number]#1.00T IFF [facility] Operative Reporton Operative Report [id number]#1.00 TIFF [facility] Screenson 04-29-2023 Screens [id number]#1.00 TIFF [facility] Screens [id number]#1.00 TIFF [facility] Ambulatory Visit Summaryon 0 04-28-2023 Ambulatory Visit [...] When: Comments: sched urodynamics Where: [address] [place] [address] [phone] Medications What How Much When Instructions Unchanged [...] d (more content not included)... Normal [facility] Patient Educationon 04-28-19 Patient Education Urology Urodynamic [...] including vitamins, herbs, eye drops, creams, and xjhu-xyi-cbnkrhd medicines. ? Whether you are or may [...] results be (more content not included)... [facility] Reminderson 04-28-2023 Reminders - From: Mayte Edmonds To: EU - Recalls Lue; Sent: 04/28/2023 10:39:26 EST Show up: 07/05/2023 10:39:00 EDT Subject: Schedule Urodynamics Due Date/Time: 08/05/2023 10:39:00 EDT Reminder/Recall Per [facility], patient needs to be scheduled to have Urodynamics done once she returns as of July. Will need to call patient prior to [facility]'s return to schedule, once [facility] provides the Urodynamics days/times for July. [facility] Urology Office/Clinic Noteon 04-28-2023 Urology Office/Clinic Note [...] prostate) P (more content not included)... [facility] Comment on above: Result Comment: Elec tronically Signed By: Sara Bob MD\.br\Date and Time Signed: 04/28/23 11:12 EST\.br\Electronically Co-Signed By: Deborah Torres\.br\Date and Time Co-Signed: 04/28/23 10:44 EST Operative Reporton Operative Report [id number]#1.00 TIFF [facility] Consent for Procedure/Surger yon 03-18-2023 Consent for Procedure/Surgery [id number]#1.00T IFF [facility] Screenson 02-03-2023 Screens [id number]#1.00T IFF [facility] Screens [id number]#1.00T IFF [facility] Ambulatory Visit Summaryon 1 04-05-2022 Ambulatory Visit Summary KAREN ESCALONA :1945 Visit Date:02/02/2023 Ambulatory Visit Instructions Your Diagnosis BPH with urinary obstruction Incomplete bladder emptying Screening PSA (prostate specific antigen) Asymptomatic microscopic hematuria Simple renal cyst Tests Performed Urnls Dip Stick Auto w/o Microscopy POC 91566 Your Care Team Attending Physician - ANGELI [...] cysto/TRUS Where: [address] [place] [address] [phone] Medications What How Much When Instructions Unchanged [...] Urnls Dip Stick Auto w/o Microscopy POC 64797 (02/02/2023) Bilirubin Urine Dipstick - Negative Blood Urine Dipstick - Trace-intact Glucose Urine Dipstick - 2+ 500 mg/dl Ketones Urine Dipstick - Negative Leukocytes Urine Dipstick - Negative Nitrite Urine Dipstick - Negative Protein Urine Dipstick - Negative Specific [place] Urine Dipstick - 1.025 Urine Appearance Urine [...] when yo (more content not included)... [facility] Urology Office/Clinic Noteon 02-02-2023 Urology Office/Clinic Note [...] Contact Information BROOKS ANTHONY, ANGELI Montiel, URL [address] [place] [address] [phone] Additional Instructions: sched cysto/TRUS Patient Education Cystoscopy [...] mg oral (more content not included)... [facility] Comment on above: Result Comment: Elec tronically Signed By: ANGELI GUY PA-C\.br\Date and Time Signed: 02/02/23 15:07 EST\.br\Electronically Co-Signed By: Deborah Torres\.br\Date and Time Co-Signed: 02/02/23 14:51 EST A1C HEMOGLOBINon 12-15-2022 HbA1c (Bld) [Mass fraction] 7.0 % [email or web address] Other Glucose - FINGER STICKon Glucose [Mass/Vol] 119 mg/dL [email or web address] Other HbA1c (Bld) [Mass fraction]o n 12-15-2022 A1C HEMOGLOBIN [employer] Other Screenson 08-05-2022 Screens [id number]#1.00C D:127 [facility] Patient Educationon 08-05-19 Patient Education Urology Benign [...] Follow these instructions at home: ? Take ixyk-ume-keetrpy and prescription medicines only as told by [...] the medicine (more content not included)... [facility] Urology Office/Clinic Noteon 08-04-2022 Urology Office/Clinic Note [...] E&M of Est. Patient Moderate 30-39 Min 91261 Measure Post Void residual urine and/or bladder capacity by US- non-imaging 35089 Urnls Dip Stick Auto w/o Microscopy POC 65021 2. Incomplete bladder emptying (R39.14: Feeling of incomplete bladder emptying) see #1. PVR: 05/21/20 - 98cc 02/25/21 - 156cc 02/25/22 - 250cc 08/04/22 - 143cc Ordered: E&M of Est. Patient Moderate 30-39 Min 83904 3. Prostatitis, chronic (N41.1: Chronic prostatitis) Hx of chronic prostatitis. Pt denies any infections since prior encounter, feels his infection frequency has lessened after TURP. Ordered: E&M of Est. Patient Moderate 30-39 Min 12459 4. Simple renal cyst (N28.1: Cyst of kidney, acquired) Found on [facility] done 01/2020, left 1.9cm. Follow PRN. Ordered: E&M of Est. Patient Moderate 30-39 Min 68281 5. Asymptomatic microscopic hematuria (R31.21: Asymptomatic microscopic hematuria) Chronic. UA today show trace intact only, no signs of infection. Ordered: E&M of Est. Patient Moderate 30-39 Min 36843 Follow-up With When Contact Information ANGELI GUY [...] 10:00:00) Ketones (more content not included)... [facility] Comment on above: Result Comment: Elec tronically [...] in adult Healthy Weight Tips; Status:Complete; Done: [id number] Some eating tips that can help you lose weight.; Status:Complete; Done: [id number] Essential hypertension, benign Start: amLODIPine Besylate 5 [...] 3. Diabetes, managed by diabetes clinic at [facility], recent A1c 7.2 4. Obesity. Encouraged more [...] point out cardiac cause. Bill Conn MD, [facility] Surgical History Problems History of Appendectomy History [...] Recorded: 30Jun2022 11:20AM Heart Rate96, L Radial Mrvujepr112, LUE, Sitting Biybivajk76, LUE, Sitting Height5 ft 6 in Fpxxbp372 lb BMI Ttutttzjlm51.77 kg/m2 BSA Calculated2.01 Tobacco Useb) No PHQ-2 #1. Over the last 2 weeks have you felt down, depressed or hopeless? (If yes, answer PHQ-9 below)No PHQ-2 #2. Over the last 2 weeks have you felt little interest or pleasure (more content not included)... Normal [facility] Tobacco Screening.on 023 Adult depression screening assessment [facility] [employer] DO Work Phone: Fall risk assessment a) No falls within the last year [facility] [employer] [address] DO Work Phone: Tobacco use status CPHS b) No [facility] [employer] [address] DO Work Phone: A1C HEMOGLOBINon 06-15-2022 HbA1c (Bld) [Mass fraction] 7.1 % [email or web address] Other Glucose - FINGER STICKon Glucose [Mass/Vol] 133 mg/dL [email or web address] Other HbA1c (Bld) [Mass fraction]o n 06-15-2022 A1C HEMOGLOBIN [employer] Other LIPID PROFILEon 06-10-2022 CHOL-HDL RATIO NORM SEE BELOW Normal [facility] Comment on above: Result Comment: 3.3 - 4.4 LOW RISK 4.4 - 7.1 AVERAGE RISK 7.1 - 11.0 MODERATE RISK >11.0 HIGH RISK Performed By: #### C , LIPID #### [facility] [address] [address] [address] Kim Roper Cholesterol [Mass/Vol] 132 mg/dL Normal <=200 [facility] Comment on above: Performed By: #### C MP, LIPID #### [facility] [address] [address] [address] Kim Roper Cholesterol in HDL [Mass/Vol] 47 mg/dL Normal 40-60 [facility] Comment on above: Performed By: #### C MP, LIPID #### [facility] [address] [address] [address] Kim Roper Cholesterol in LDL [Mass/Vol] 63.2 mg/dL Normal [facility] Comment on above: Performed By: #### C MP, LIPID #### [facility] [address] [address] [address] Kim Roper Cholesterol.total/ Cholesterol in HDL [Mass ratio] 2.8 {ratio} Normal [facility] Comment on above: Performed By: #### C MP, LIPID #### [facility] [address] [place] [address] Dr. Kim Roper HDL NORMAL > or = 60 mg/dl - LO W CARDIOVASCULAR RISK <40 mg/dl - HIGH CARDIOVASCULAR RISK Normal [facility] Comment on above: Performed By: #### C MP, LIPID #### [facility] [address] [place] [address] Dr. Kim Roper LDL CALC NORMAL SEE BELOW Normal [facility] Comment on above: Result Comment: <100 mg/dl OPTIMAL 100 - 129 mg/dl NEAR OR ABOVE OPTIMAL 130 - 159 mg/dl BORDERLINE HIGH 160 - 189 mg/dl HIGH >190 mg/dl VERY HIGH Performed By: #### C MP, LIPID #### [facility] [address] [address] [address] Kim Roper Triglyceride [Mass/Vol] 109 mg/dL Normal <=150 [facility] Comment on above: Performed By: #### C MP, LIPID #### [facility] [address] [address] [address] Kim Roper VLDL CALC 21.8 mg/dL Normal [facility] Comment on above: Performed By: #### C MP, LIPID #### [facility] [address] [place] [address] Dr. Kim Roper MICROALB CREAT RATIO RANDOMo n 06-10-2022 mALB <1.3 Normal <=30.0 [facility] Comment on above: Performed By: #### M CRR #### [facility] [address] [place] [address] Dr. Kim Roper URINE CREAT 109.64 mg/dL Normal 20.00-300.00 [facility] Comment on above: Performed By: #### M CRR #### [facility] [address] [place] [address] Dr. Kim Roper PROF 14(COMP METB)on 023 Albumin [Mass/Vol] 3.7 g/dL Normal 3.4-5.[address] [facility] Comment on above: Performed By: #### C MP, LIPID #### [facility] [address] [place] [address] Dr. Kim Roper Albumin/Globulin [Mass ratio] 1.0 {ratio} Normal [facility] Comment on above: Performed By: #### C MP, LIPID #### [facility] [address] [place] [address] Dr. Kim Roper ALP [Catalytic activity/Vol] 47 U/L Normal 46-116 [facility] Comment on above: Performed By: #### C MP, LIPID #### [facility] [address] [place] [address] Dr. Kim Roper ALT [Catalytic activity/Vol] 40 U/L Normal 16-63 [facility] Comment on above: Performed By: #### C MP, LIPID #### [facility] [address] [place] [address] Dr. Kim Roper Anion gap [Moles/Vol] 11.4 mmol/L Normal [facility] Comment on above: Performed By: #### C MP, LIPID #### [facility] [address] [place] [address] Dr. Kim Roper AST [Catalytic activity/Vol] 21 U/L Normal 15-37 [facility] Comment on above: Performed By: #### C MP, LIPID #### [facility] [address] [address] [address] Kim Roper Bilirubin [Mass/Vol] 0.5 mg/dL Normal 0.2-1.0 [facility] Comment on above: Performed By: #### C MP, LIPID #### [facility] [address] [address] [address] Kim Roper Calcium [Mass/Vol] 8.9 mg/dL Normal 8.5-10.[address] [facility] Comment on above: Performed By: #### C MP, LIPID #### [facility] [address] [address] [address] Kim Roper Chloride [Moles/Vol] 105 mmol/L Normal 98-107 [facility] Comment on above: Performed By: #### C MP, LIPID #### [facility] [address] [place] [address] Dr. Kim Roper CO2 [Moles/Vol] 29.3 mmol/L Normal 21.0-32.0 [facility] Comment on above: Performed By: #### C MP, LIPID #### [facility] [address] [place] [address] Dr. Kim Roper Creatinine [Mass/Vol] 0.88 mg/dL Normal 0.70-1.30 [facility] Comment on above: Performed By: #### C MP, LIPID #### [facility] [address] [place] [address] Dr. Kim Roper EGFR-AF TAJIK >60 Normal >=60 [facility] Comment on above: Performed By: #### C MP, LIPID #### [facility] [address] [address] [address] Kim Roper EGFR-NON AF TAJIK >60 Normal >=60 [facility] Comment on above: Performed By: #### C MP, LIPID #### [facility] [address] [place] [address] Dr. Kim Roper Globulin (S) [Mass/Vol] 3.6 g/dL Normal [facility] Comment on above: Performed By: #### C MP, LIPID #### [facility] [address] [address] [address] Kim Roper Glucose [Mass/Vol] 160 mg/dL Critically high 74-106 [facility] Comment on above: Performed By: #### C MP, LIPID #### [facility] [address] [place] [address] Dr. Kim Roper Potassium [Moles/Vol] 4.7 mmol/L Normal 3.5-5.1 [facility] Comment on above: Performed By: #### C MP, LIPID #### [facility] [address] [place] [address] Dr. Kim Roper Protein [Mass/Vol] 7.3 g/dL Normal 6.4-8.[address] [facility] Comment on above: Performed By: #### C MP, LIPID #### [facility] [address] [place] [address] Dr. Kim Roper Sodium [Moles/Vol] 141 mmol/L Normal 136-[address] [facility] Comment on above: Performed By: #### C MP, LIPID #### [facility] [address] [place] [address] Dr. Kim Roper Urea nitrogen [Mass/Vol] 11.0 mg/dL Normal 7.0-18.0 [facility] Comment on above: Performed By: #### C MP, LIPID #### [facility] [address] [place] [address] Dr. Kim Roper Urea nitrogen/Creatinin e [Mass ratio] 12.5 mg/mg Normal [facility] Comment on above: Performed By: #### C MP, LIPID #### [facility] [address] [place] [address] Dr. Kim Roper VITAMIN B12on 06-10-2022 Cobalamin (Vitamin B12) [Mass/Vol] 281.0 pg/mL Normal 193.0-986.0 [facility] Comment on above: Performed By: #### V ITB12 #### [facility] [address] [place] [address] Dr. Kim Roper LIPID PROFILEon 06-20-2021 CHOL-HDL RATIO NORM SEE BELOW Normal [facility] Comment on above: Result Comment: 3.3 - 4.4 LOW RISK 4.4 - 7.1 AVERAGE RISK 7.1 - 11.0 MODERATE RISK >11.0 HIGH RISK Performed By: #### L IPID, CMP #### [facility] [address] [address] [address] Kim Roper Cholesterol [Mass/Vol] 114 mg/dL Normal <=200 [facility] Comment on above: Performed By: #### L IPID, CMP #### [facility] [address] [address] [address] Kim Roper Cholesterol in HDL [Mass/Vol] 42 mg/dL Normal 40-60 [facility] Comment on above: Performed By: #### L IPID, CMP #### [facility] [address] [address] [address] Kim Roper Cholesterol in LDL [Mass/Vol] 45.6 mg/dL Normal [facility] Comment on above: Performed By: #### L IPID, CMP #### [facility] [address] [address] [address] Kim Roper Cholesterol.total/ Cholesterol in HDL [Mass ratio] 2.7 {ratio} Normal [facility] Comment on above: Performed By: #### L IPID, CMP #### [facility] [address] [address] [address] Kim Roper HDL NORMAL > or = 60 mg/dl - LO W CARDIOVASCULAR RISK <40 mg/dl - HIGH CARDIOVASCULAR RISK Normal [facility] Comment on above: Performed By: #### L IPID, CMP #### [facility] [address] [address] [address] Kim Roper LDL CALC NORMAL SEE BELOW Normal [facility] Comment on above: Result Comment: <100 mg/dl OPTIMAL 100 - 129 mg/dl NEAR OR ABOVE OPTIMAL 130 - 159 mg/dl BORDERLINE HIGH 160 - 189 mg/dl HIGH >190 mg/dl VERY HIGH Performed By: #### L IPID, CMP #### [facility] [address] [address] [address] Kim Roper Triglyceride [Mass/Vol] 132 mg/dL Normal <=150 [facility] Comment on above: Performed By: #### L IPID, CMP #### [facility] [address] [place] [address] Dr. Kim Roper VLDL CALC 26.4 mg/dL Normal [facility] Comment on above: Performed By: #### L IPID, CMP #### [facility] [address] [place] [address] Dr. Kim Roper MICROALB CREAT RATIO RANDOMo n 06-20-2021 mALB <1.3 Normal <=30.0 [facility] Comment on above: Performed By: #### M CRR #### [facility] [address] [place] [address] Dr. Kim Roper URINE CREAT 126.66 mg/dL Normal 20.00-300.00 [facility] Comment on above: Performed By: #### M CRR #### [facility] [address] [place] [address] Dr. Kim Roper PROF 14(COMP METB)on 022 Albumin [Mass/Vol] 3.9 g/dL Normal 3.4-5.[address] [facility] Comment on above: Performed By: #### L IPID, CMP #### [facility] [address] [place] [address] Dr. Kim Roper Albumin/Globulin [Mass ratio] 1.2 {ratio} Normal [facility] Comment on above: Performed By: #### L IPID, CMP #### [facility] [address] [place] [address] Dr. Kim Roper ALP [Catalytic activity/Vol] 46 U/L Normal 46-116 [facility] Comment on above: Performed By: #### L IPID, CMP #### [facility] [address] [place] [address] Dr. Kim Roper ALT [Catalytic activity/Vol] 32 U/L Normal 16-63 [facility] Comment on above: Performed By: #### L IPID, CMP #### [facility] [address] [address] [address] Kim Roper Anion gap [Moles/Vol] 10.9 mmol/L Normal [facility] Comment on above: Performed By: #### L IPID, CMP #### [facility] [address] [address] [address] Kim Roper AST [Catalytic activity/Vol] 17 U/L Normal 15-37 [facility] Comment on above: Performed By: #### L IPID, CMP #### [facility] [address] [address] [address] Kim Roper Bilirubin [Mass/Vol] 0.6 mg/dL Normal 0.2-1.3 [facility] Comment on above: Performed By: #### L IPID, CMP #### [facility] [address] [place] [address] Dr. Kim Roper Calcium [Mass/Vol] 8.7 mg/dL Normal 8.5-10.[address] [facility] Comment on above: Performed By: #### L IPID, CMP #### [facility] [address] [address] [address] Kim Roper Chloride [Moles/Vol] 103 mmol/L Normal 98-107 [facility] Comment on above: Performed By: #### L IPID, CMP #### [facility] [address] [address] [address] Kim Roper CO2 [Moles/Vol] 30.4 mmol/L Critically high 22.0-30.0 [facility] Comment on above: Performed By: #### L IPID, CMP #### [facility] [address] [address] [address] Kim Roper Creatinine [Mass/Vol] 0.77 mg/dL Normal 0.66-1.25 [facility] Comment on above: Performed By: #### L IPID, CMP #### [facility] [address] [place] [address] Dr. Kim Roper EGFR-AF TAJIK >60 Normal >=60 [facility] Comment on above: Performed By: #### L IPID, CMP #### [facility] [address] [address] [address] Kim Roper EGFR-NON AF TAJIK >60 Normal >=60 [facility] Comment on above: Performed By: #### L IPID, CMP #### [facility] [address] [address] [address] Kim Roper Globulin (S) [Mass/Vol] 3.3 g/dL Normal [facility] Comment on above: Performed By: #### L IPID, CMP #### [facility] [address] [address] [address] Kim Roper Glucose [Mass/Vol] 88 mg/dL Normal 74-[address] [facility] Comment on above: Performed By: #### L IPID, CMP #### [facility] [address] [place] [address] Dr. Kim Roper Potassium [Moles/Vol] 4.3 mmol/L Normal 3.4-5.0 [facility] Comment on above: Performed By: #### L IPID, CMP #### [facility] [address] [address] [address] Kim Roper Protein [Mass/Vol] 7.2 g/dL Normal 6.1-8.[address] [facility] Comment on above: Performed By: #### L IPID, CMP #### [facility] [address] [place] [address] Dr. Kim Roper Sodium [Moles/Vol] 140 mmol/L Normal 137-145 [facility] Comment on above: Performed By: #### L IPID, CMP #### [facility] [address] [address] [address] Kim Roper Urea nitrogen [Mass/Vol] 15.0 mg/dL Normal 7.0-18.0 [facility] Comment on above: Performed By: #### L IPID, CMP #### [facility] [address] [place] [address] Dr. Kim Roper Urea nitrogen/Creatinin e [Mass ratio] 19.5 mg/mg Normal [facility] Comment on above: Performed By: #### L IPID, CMP #### [facility] [address] [address] [address] Kim Roper VITAMIN B12on 06-20-2021 Cobalamin (Vitamin B12) [Mass/Vol] 430.0 pg/mL Normal 239.0-931.0 [facility] Comment on above: Performed By: #### V ITB12 #### [facility] [address] [address] [address] Kim Roper Tobacco Screening.on 021 Fall risk assessment a) No falls within the last year -[facility] [address] DO Work Phone: Tobacco use status CPHS b) No -[facility] [address] DO Work Phone: GLUCOSE, FINGERSTICK-IN OFFI CEon 03-20-2020 Glucose [Mass/Vol] 155 mg/dL High 80-116 [facility] Comment on above: Performed By: #### [place] ROP I #### [facility] [address] [place] [address], BASIC METABOLIC PANELon 03-01 Anion gap [Moles/Vol] 14 mmol/L High 5-13 The [facility] Comment on above: Performed By: #### DESI DALE #### [facility] [address] [place] [address], Calcium [Mass/Vol] 8.3 mg/dL Low 8.4-10.4 The [facility] Comment on above: Performed By: #### DESI DALE #### [facility] [address] [place] [address], Chloride [Moles/Vol] 101 mmol/L Normal 97-111 The [facility] Comment on above: Performed By: #### DESI DALE #### [facility] [address] [place] [address], CO2 [Moles/Vol] 24 mmol/L Normal 21-30 The [facility] Comment on above: Performed By: #### DESI DALE #### [facility] [address] [place] [address], Creatinine [Mass/Vol] 0.73 mg/dL Low 0.80-1.30 The [facility] Comment on above: Performed By: #### Dinesh THAPA CH8 #### [facility] [address] [place] [address], GFR/1.73 sq M.predicted MDRD (S/P/Bld) [Vol rate/Area] 91 mL/min/1.73sqm Normal >=60 The [facility] Comment on above: Performed By: #### DESI DALE #### [facility] [address] [place] [address], Glucose [Mass/Vol] 221 mg/dL High 80-116 The [facility] Comment on above: Performed By: #### DESI DALE #### [facility] [address] [place] [address], Potassium [Moles/Vol] 4.0 mmol/L Normal 3.3-5.3 The [facility] Comment on above: Performed By: #### DESI DALE #### [facility] [address] [place] [address], Sodium [Moles/Vol] 135 mmol/L Normal 135-148 The [facility] Comment on above: Performed By: #### DESI DALE #### [facility] [address] [place] [address], Urea nitrogen [Mass/Vol] 8 mg/dL Normal 8-22 The [facility] Comment on above: Performed By: #### DESI DALE #### [facility] [address] [place] [address], CBC WITH DIFFERENTIALon 03-01 Basophils (Bld) [#/Vol] 0.07 10*3/uL Normal 0.00-0.20 The [facility] Comment on above: Performed By: #### Everett ROP I #### [facility] [address] [place] [address], Basophils/100 WBC (Bld) 0.7 % Normal <=1.9 The [facility] Comment on above: Performed By: #### T ROP I #### [facility] [address], [place], Eosinophils (Bld) [#/Vol] 0.02 10*3/uL Normal 0.00-0.70 The [facility] Comment on above: Performed By: #### T ROP I #### [facility] [address], [place], Eosinophils/100 WBC (Bld) 0.2 % Normal 0.1-4.0 [facility] Comment on above: Performed By: #### T ROP I #### [facility] [address], [place], Erythrocyte distribution width (RBC) [Ratio] 14.9 % High 11.5-14.[address] [facility] Comment on above: Performed By: #### T ROP I #### [facility] [address], [place], Hematocrit (Bld) [Volume fraction] 41.2 % Normal 41.0-53.0 The [facility] Comment on above: Performed By: #### T ROP I #### [facility] [address], [place], Hemoglobin (Bld) [Mass/Vol] 14.0 g/dL Normal 13.9-16.[address] [facility] Comment on above: Performed By: #### T ROP I #### [facility] [address], [place], Lymphocytes (Bld) [#/Vol] 0.59 10*3/uL Low 1.00-4.80 [facility] Comment on above: Performed By: #### T ROP I #### [facility] [address], [place], Lymphocytes/100 WBC (Bld) 6.1 % Low 24.0-44.0 The [facility] [employer] Comment on above: Performed By: #### T ROP I #### [facility] [address], [place], MCH (RBC) [Entitic mass] 29.5 pg Normal 26.0-34.0 [facility] Comment on above: Performed By: #### T ROP I #### [facility] [address], [place], MCHC (RBC) [Mass/Vol] 34.1 g/dL Normal 32.0-35.9 [facility] Comment on above: Performed By: #### T ROP I #### [facility] [address], [place], MCV (RBC) [Entitic vol] 87 fL Normal 80-100 [facility] Comment on above: Performed By: #### T ROP I #### [facility] [address], [place], Monocytes (Bld) [#/Vol] 0.61 10*3/uL Normal 0.20-1.[address] [facility] Comment on above: Performed By: #### T ROP I #### [facility] [address], [place], Monocytes (Bld) [#/Vol] 18 10*3/uL Normal <=20 [facility] Comment on above: Performed By: #### T ROP I #### [facility] [address], [place], Monocytes/100 WBC (Bld) 6.3 % Normal 2.0-11.0 [facility] Comment on above: Performed By: #### T ROP I #### [facility] [address], [place], Neutrophils (Bld) [#/Vol] 8.39 10*3/uL High 1.50-8.00 [facility] Comment on above: Performed By: #### T ROP I #### [facility] [address], [place], Neutrophils/100 WBC (Bld) 86.7 % High 31.0-76.[address] [facility] Comment on above: Performed By: #### T ROP I #### [facility] [address], [place], Nucleated RBC (Bld) [#/Vol] 0.0 10*3/uL Normal The [facility] Comment on above: Performed By: #### T ROP I #### [facility] [address], [place], Nucleated RBC (Bld) [#/Vol] 0.00 10*3/uL Normal The [facility] Comment on above: Performed By: #### T ROP I #### [facility] [address], [place], Platelet mean volume (Bld) [Entitic vol] 6.4 fL Low 7.5-11.2 The [facility] Comment on above: Performed By: #### T ROP I #### [facility] [address], [place], Platelets (Bld) [#/Vol] 221 10*3/uL Normal 150-400 [facility] Comment on above: Performed By: #### T ROP I #### [facility] [address], [place], RBC (Bld) [#/Vol] 4.76 10*6/uL Normal 4.50-5.90 The [facility] Comment on above: Performed By: #### T ROP I #### [facility] [address], [place], WBC (Bld) [#/Vol] 9.7 10*3/uL Normal 4.5-11.5 The [facility] Comment on above: Performed By: #### T ROP I #### [facility] [address], [place], CT HEAD W/O CONTRASTon 03-19 CT [...] Ethanol [Mass/Vol] mg/dL Normal None Detected The [facility] Comment on above: Performed By: #### E ALANIS, CH8 #### [facility] [address] [place] [address], HIV1 HIV2 AGAB SCRNon 2020 HIV AG-AB SCREEN Non-Reactive Normal Non-Reactive The [employer] [facility] Comment on above: Order Comment: HIV Information: ???[place] Rev. code 3701.243(E): This information has been [...] agab scrn #### [facility] [address], [place], LACTIC ACIDon 03-19-2020 Lactate [Moles/Vol] 1.5 mmol/L Normal 0.5-2.0 The [employer] Comment on above: Performed By: #### L ACT #### [facility] [address], [place], PARTIAL THROMBOPLASTIN TIMEo n 03-19-2020 aPTT Coag (Bld) [Time] 29 s Normal 25-37 The [employer] Comment on above: Performed By: #### P T, APTT #### [facility] [address] [place] [address], PROTHROMBIN TIME AND INRon 0 03-19-2020 INR Coag (PPP) [Relative time] 0.96 {INR} Normal 0.90-1.[address] [facility] Comment on above: Performed By: #### P T, APTT #### [facility] [address] [place] [address], PT Coag (PPP) [Time] 10.9 s Normal 9.7-12.[address] [facility] Comment on above: Performed By: #### P T, APTT #### [facility] [address] [place] [address], TROPONIN Ion 03-19-2020 Troponin I.cardiac [Mass/Vol] ng/mL Normal <0.120 The [employer] Comment on above: Result Comment: Rang [...] T ROP I #### [facility] [address] [place] [address], Troponin I.cardiac [Mass/Vol] ng/mL Normal <0.[address] [facility] Comment on above: Result Comment: Rang [...] T ROP I #### [facility] [address] [place] [address], Troponin I.cardiac [Mass/Vol] ng/mL Normal <0.120 The [facility] Comment on above: Result Comment: Rang [...] ROP I #### [facility] [address], [place], TYPE AND SCREENon 03-19-2020 ABO and Rh group Nom (Bld) No Previous Results Normal The [facility] Comment on above: Performed By: #### T S #### [facility] [address], [place], ABO and Rh group Nom (Bld) A Positive Normal The [facility] Comment on above: Performed By: #### T S #### [facility] [address], [place], ABSC INT Negative Normal [facility] Comment on above: Performed By: #### T S #### [facility] [address], [place], [facility] CARDIAC STRESS/REST INJE CTIONon 08-15-2019 NO CARDIAC STRESS/REST INJECTION Patient Name: KAREN ESCALONA STUDY: MYOCARDIAL PERFUSION STRESS TEST WITH LEXISCAN Performing facility: [facility], [address] [place] [address], [address], [place] [id number] [facility] Provider: Bill Conn MD, [facility] PCP: Dr. Zia GRIGGS Supervising provider: Chinedu Mcgarry MD, FACC INDICATION: ASCVD DM Hyperlipidemia HISTORY: Gender: M; Age: 74 y/o ; Height: 167.64 cm; Weight: 92.0046015 kg. CAD; Diabetes; HTN; Abnormal EKG; High Cholesterol; Quit smoking years ago. Cardiac catheterization 2009. COMPARISON: Previous nuclear testing completed 2009 at [facility]. ACCESSION NUMBER(S): [id number]; [id number]; [id number] ORDERING CLINICIAN: BILL CONN TECHNIQUE: ONE DAY [...] Electronically signed by: CLARE FONSECA MD Normal [facility] Vital Signs Date Time Vital Sign Value Performing Clinician Facility 04-28-2023 10:03-0500 Blood Pressure Location Sara Bob [facility] 04-28-2023 10:03-0500 Diastolic blood pressure 82 mm[Hg] Sara Bob [facility] 04-28-2023 10:03-0500 Systolic blood pressure 142 mm[Hg] Sara Eatone [facility] 03-17-2023 09:00-0500 Body height 167.64 cm Dion Ball Other [facility] 03-17-2023 09:00-0500 Body mass index (BMI) [Ratio] 33.41 kg/m2 Dion Ball Other [facility] [employer] Other 03-17-2023 09:00-0500 Body weight 93.9 kg Dion Ball Other [facility] [employer] Other 03-17-2023 09:00-0500 Body weight 93.[address] [facility] 03-17-2023 09:00-0500 Diastolic blood pressure 80 mm[Hg] Dion Ball Other [facility] 03-17-2023 09:00-0500 Respiratory rate 12 /min Dion Ball Other [facility] [employer] Other 03-17-2023 09:00-0500 Systolic blood pressure 132 mm[Hg] Dion Ball Other [facility] 02-02-2023 14:05-0500 Blood Pressure Location ANGELI BECKWITHRY [facility] 02-02-2023 14:05-0500 Diastolic blood pressure 74 mm[Hg] ANGELI BROOKS [facility] 02-02-2023 14:05-0500 Heart rate 82 /min ANGELI BROOKS [facility] 02-02-2023 14:05-0500 Respiratory rate 16 /min ANGELI BROOKS [facility] 02-02-2023 14:05-0500 Systolic blood pressure 132 mm[Hg] ANGELI GUY [facility] 12-15-2022 13:00-0400 Body height 167.64 cm Tondra Mapus [email or web address] Other 12-15-2022 13:00-0400 Body mass index (BMI) [Ratio] 33.23 kg/m2 Tondra Mapus [email or web address] Other 12-15-2022 13:00-0400 Body weight 93.4 kg Tondra Mapus [email or web address] Other 12-15-2022 13:00-0400 Diastolic blood pressure 87 mm[Hg] Tondra Mapus [email or web address] Other 12-15-2022 13:00-0400 Respiratory rate 18 /min Tondra Mapus [email or web address] Other 12-15-2022 13:00-0400 SaO2% (BldA) [Mass fraction] 97 % Tondra Mapus [email or web address] Other 12-15-2022 13:00-0400 Systolic blood pressure 154 mm[Hg] Tondra Mapus [email or web address] Other 09-02-2022 10:30-0400 Body height 167.64 cm Dion Ball Other [email or web address] Other 09-02-2022 10:30-0400 Body mass index (BMI) [Ratio] 32.89 kg/m2 Dion Ball [email or web address] Other 09-02-2022 10:30-0400 Body weight 92.44 kg Dion Ball Other [email or web address] Other 09-02-2022 10:30-0400 Diastolic blood pressure 80 mm[Hg] Dion Ball [email or web address] Other 09-02-2022 10:30-0400 Respiratory rate 12 /min Dion Ball [email or web address] Other 09-02-2022 10:30-0400 Systolic blood pressure 130 mm[Hg] Dion Ball [email or web address] Other 08-20-2022 10:45-0400 Body height 167.64 cm Dion Ball [email or web address] Other 08-20-2022 10:45-0400 Body mass index (BMI) [Ratio] 32.47 kg/m2 Dion Ball [email or web address] Other 08-20-2022 10:45-0400 Body weight 91.26 kg Dion Ball Other [email or web address] Other 08-20-2022 10:45-0400 Diastolic blood pressure 77 mm[Hg] Dion Ball Other [email or web address] Other 08-20-2022 10:45-0400 Respiratory rate 12 /min Dion Ball [email or web address] Other 08-20-2022 10:45-0400 Systolic blood pressure 150 mm[Hg] Dion Ball Other [email or web address] Other 08-04-2022 10:02-0400 Blood Pressure Location ANGELI GUY [facility] 08-04-2022 10:02-0400 Diastolic blood pressure 78 mm[Hg] ANGELI GUY [facility] 08-04-2022 10:02-0400 Heart rate 68 /min ANGELI GUY [facility] 08-04-2022 10:02-0400 Respiratory rate 16 /min ANGELI GUY [facility] 08-04-2022 10:02-0400 Systolic blood pressure 130 mm[Hg] ANGELI GUY [facility] 07-23-2022 11:09-0400 Diastolic blood pressure 78 mm[Hg] Dion Dinesh Ball Work Phone: [facility] DO Work Phone: 07-23-2022 11:09-0400 Systolic blood pressure 138 mm[Hg] Idon Dinesh Ball Work Phone: [facility] DO Work Phone: 07-23-2022 11:06-0400 Body height 167.64 cm Dion Montiel Ball Work Phone: [facility] DO Work Phone: 07-23-2022 11:06-0400 Body mass index (BMI) [Ratio] 32.77 kg/m2 Dion E Ball Work Phone: [facility] DO Work Phone: 07-23-2022 11:06-0400 Body surface area Derived from formula 2.01 m2 Dion E Ball Work Phone: [facility] DO Work Phone: 07-23-2022 11:06-0400 Body weight 92.08 kg Dion Montiel Ball Work Phone: [facility] DO Work Phone: 07-23-2022 11:06-0400 Diastolic blood pressure 80 mm[Hg] Dion E Ball Work Phone: [facility] DO Work Phone: 07-23-2022 11:06-0400 Heart rate 90 /min Dion E Ball Work Phone: [facility] DO Work Phone: 07-23-2022 11:06-0400 Systolic blood pressure 140 mm[Hg] Dion E Ball Work Phone: [facility] DO Work Phone: 06-30-2022 11:20-0400 Body height 167.64 cm Dion E Ball Work Phone: [facility] DO Work Phone: 06-30-2022 11:20-0400 Body mass index (BMI) [Ratio] 32.77 kg/m2 Dion E Ball Work Phone: [facility] DO Work Phone: 06-30-2022 11:20-0400 Body surface area Derived from formula 2.01 m2 Dion E Ball Work Phone: [facility] DO Work Phone: 06-30-2022 11:20-0400 Body weight 92.08 kg Dion E Ball Work Phone: [facility] DO Work Phone: 06-30-2022 11:20-0400 Diastolic blood pressure 88 mm[Hg] Dion E Ball Work Phone: [facility] DO Work Phone: 06-30-2022 11:20-0400 Heart rate 96 /min Dion E Ball Work Phone: [facility] [employer] 250 DO Work Phone: 06-30-2022 11:20-0400 Systolic blood pressure 158 mm[Hg] Dion Griggs Work Phone: [facility] [employer] 250 DO Work Phone: 06-15-2022 14:30-0400 Body height 167.64 cm Tondra Mapus [email or web address] Other 06-15-2022 14:30-0400 Body mass index (BMI) [Ratio] 33.18 kg/m2 Tondra Mapus [email or web address] Other 06-15-2022 14:30-0400 Body weight 93.26 kg Tondra Mapus [email or web address] Other 06-15-2022 14:30-0400 Diastolic blood pressure 85 mm[Hg] Tondra Mapus [email or web address] Other 06-15-2022 14:30-0400 Respiratory rate 18 /min Tondra Mapus [email or web address] Other 06-15-2022 14:30-0400 SaO2% (BldA) [Mass fraction] 95 % Tondra Mapus [email or web address] Other 06-15-2022 14:30-0400 Systolic blood pressure 151 mm[Hg] Tondra Mapus Other [email or web address] Other 02-25-2022 09:34-0500 Blood Pressure Location ANGELI GUY [facility] 02-25-2022 09:34-0500 Diastolic blood pressure 82 mm[Hg] ANGELI GUY [facility] 02-25-2022 09:34-0500 Heart rate 68 /min ANGELI GUY [facility] 02-25-2022 09:34-0500 Respiratory rate 16 /min ANGELI GUY [facility] 02-25-2022 09:34-0500 Systolic blood pressure 138 mm[Hg] ANGELI GUY [facility] 08-26-2021 10:43-0400 Blood Pressure Location Kailee Mckinney Jr. [facility] 08-26-2021 10:43-0400 Diastolic blood pressure 76 mm[Hg] Kailee Mckinney Jr. [facility] 08-26-2021 10:43-0400 Heart rate 85 /min Kailee Mckinney Jr. [facility] 08-26-2021 10:43-0400 Respiratory rate 16 /min Kailee Mckinney Jr. [facility] 08-26-2021 10:43-0400 Systolic blood pressure 138 mm[Hg] Kailee Mckinney Jr. [facility] 01-06-2021 14:59-0500 Body height 167.64 cm Dion Griggs Work Phone: [facility] [place] [facility] DO Work Phone: 01-06-2021 14:59-0500 Body mass index (BMI) [Ratio] 32.6 kg/m2 Dion E Ball Work Phone: [facility] DO Work Phone: 01-06-2021 14:59-0500 Body surface area Derived from formula 2.01 m2 Dion E Ball Work Phone: [facility] DO Work Phone: 01-06-2021 14:59-0500 Body weight 91.63 kg Idon E Ball Work Phone: [facility] DO Work Phone: 01-06-2021 14:59-0500 Diastolic blood pressure 76 mm[Hg] Dion E Ball Work Phone: [facility] DO Work Phone: 01-06-2021 14:59-0500 Heart rate 86 /min Dion E Ball Work Phone: [facility] DO Work Phone: 01-06-2021 14:59-0500 Systolic blood pressure 128 mm[Hg] Dion Montiel Ball Work Phone: [facility] DO Work Phone: Encounters Encounter Date Encounter Type Care Provider Facility Start: 05-05-2023 ambulatory ANGELI Michel ty:[facility] Start: 04-28-2023 End: 04-29-2023 ambulatory Sara Bob Facility:[facility] Start: 04-28-2023 End: 04-28-2023 Patient encounter procedure Sara Bob [facility] Start: 03-26-2023 End: 03-27-2023 ambulatory Sara Bob Facility:[facility] Start: 03-26-2023 End: 03-26-2023 Patient encounter procedure Sara Bob [facility] [place] Start: 03-25-2023 End: 03-26-2023 ambulatory Sara Bob Facility:[id number] Start: 03-17-2023 End: 03-17-2023 ambulatory Dion Griggs Other [email or web address] Other Start: 03-17-2023 Office outpatient vi sit 25 minutes Dion Griggs [facility] Start: 03-17-2023 End: 03-17-2023 Patient encounter procedure [facility] Start: 03-16-2023 End: 03-16-2023 ambulatory Tondra Mapus [email or web address] Other Start: 03-16-2023 Telephone encounter Tondra Mapus [facility] Start: 02-02-2023 End: 02-03-2023 ambulatory ANGELI GUY Facility:[facility] Start: 02-02-2023 End: 02-02-2023 Patient encounter procedure [facility] Start: 12-15-2022 (DM) Diabetes Tondra Mapus [facility] Start: 12-15-2022 End: 12-16-2022 ambulatory Tondra K Mapus [facility] [employer] Other Start: 12-02-2022 End: 12-02-2022 ambulatory Dion Griggs Other [email or web address] Other Start: 12-02-2022 Nursing evaluation o f patient and report Dion Griggs [facility] Start: 09-02-2022 End: 09-02-2022 ambulatory Dion Griggs Other [email or web address] Other Start: 09-02-2022 Patient encounter procedure Dion Griggs [facility] Start: 08-20-2022 End: 08-20-2022 ambulatory Dion Griggs [email or web address] Other Start: 08-20-2022 Office outpatient vi sit 15 minutes Dion Griggs [facility] Start: 08-04-2022 End: 08-05-2022 ambulatory ANGELI GUY Facility:[facility] Start: 08-04-2022 End: 08-04-2022 Patient encounter procedure ANGELI GUY [facility] Start: 07-23-2022 Office outpatient vi sit 10 minutes Dion Griggs Work Phone: [facility] [employer] 250 DO Work Phone: Start: 06-30-2022 Telephone encounter Dion Griggs [facility] Start: 06-30-2022 Office outpatient vi sit 25 minutes Dion Griggs Work Phone: [facility] [employer] 250 DO Work Phone: Start: 06-30-2022 End: 06-30-[facility] [employer] [facility] Start: 06-15-2022 (DM) Diabetes Tondra Mapus [facility] Start: 06-15-2022 End: 06-15-2022 ambulatory Tondra Mapus [email or web address] Other Start: 06-10-2022 End: 06-11-2022 ambulatory TONDRA MAPUS Facility: Start: 05-04-2022 Rx Renewal Dion szymanski Work Phone: [facility] [employer] 250 DO Work Phone: Start: 04-27-2022 End: 04-27-2022 ambulatory Tondra Mapus [email or web address] Other Start: 04-27-2022 Telephone encounter Tondra Cristobal [facility] Start: 02-25-2022 End: 02-25-2022 Patient encounter procedure ANGELI Dinesh BROOKS [facility] Start: 02-06-2022 End: 02-07-[address] KAILEE Valente Facility:[facility] Start: 09-03-2021 Adult health examination Dion Griggs Other [email or web address] Other Start: 09-01-2021 Pre-procedure evaluation check Dion Griggs Other [email or web address] Other Start: 08-26-2021 End: 08-26-2021 Patient encounter procedure Kailee Mckinney Jr. [facility] Start: 06-23-2021 End: 06-23-2021 ambulatory Tondra Mapus [email or web address] Other Start: 06-23-2021 Telephone encounter Tondra Mapus [facility] Start: 06-20-2021 End: 06-21-2021 ambulatory TONDRA MAPUS Facility:[facility] Start: 03-24-2021 Rx Renewal Dion szymanski Work Phone: [facility] DO Work Phone: Start: 03-18-2021 End: 03-18-2021 ambulatory Tondra Mapus [email or web address] Other Start: 03-18-2021 Telephone encounter Tondra Mapus [facility] Start: 01-06-2021 Office outpatient vi sit 25 minutes Dion Griggs Work Phone: [facility] 250 DO Work Phone: Start: 03-19-2020 End: 03-20-2020 Evaluation and management of inpatient CACHORRO ROBLERO Facility:[facility] Start: 03-19-2020 Patient encounter procedure UNKNOWN PROVIDER Facility:[facility] Procedures Date Procedure Procedure Detail Performing Clinician Start: 02-06-2022 PSA screening YNES BRAN Comment on above: Performed By: #### P SAD #### [facility] [address] [place] [address] Dr. Kim Roper Start: 05-01-2020 Transurethral prostatectomy [...] Bill Conn, Status: Pen, Time: 11:00 AM [facility] Work Phone: Start: 07-23-2022 NURSEVST, Provider: EMILY BERGMAN HAND [employer]ALL COVERER 1,[id number], Status: Pen, Time: 11:00 AM NURSEVST, Provider: EMILY BERGMAN [employer] COVERER 1,[id number], Status: Pen, Time: 11:00 AM [facility] 250 DO Work Phone: Start: 06-30-2022 FUV, Provider: Bill Conn, Status: Pen, Time: 11:20 AM FUV, Provider: Bill Conn, Status: Pen, Time: 11:20 AM [facility] 250 DO Work Phone: Start: 07-01-2021 FUV, Provider: Bill Conn, Status: Pen, Time: 1:00 PM FUV, Provider: Bill Conn, Status: Pen, Time: 1:00 PM [facility] 250 DO Work Phone: Immunizations Immunization Date Immunization Notes Care Provider Mark manzanares 12-02-2022 influenza, high dose seasonal, preservative-free Dion Griggs Other [employer] [facility] [employer] Other 12-02-2022 influenza virus vaccine, unspecified formulation [facility] 12-10-2021 Fluad Quadrivalent 0 .5 ML Intramuscular Prefilled Syringe Dion Griggs Work Phone: [facility] 250 DO Work Phone: 12-10-2021 influenza virus vaccine, split virus (incl. purified surface antigen) Dion Griggs Other [employer] [facility] [employer] Other 12-10-2021 influenza virus vaccine, unspecified formulation ANGELI GUY [facility] 12-10-2021 influenza, high dose seasonal, preservative-free Dion Griggs Other [place] [employer] Other 12-06-2020 influenza virus vaccine, unspecified formulation ANGELI GUY [facility] 12-06-2020 influenza, high dose seasonal, preservative-free Dion Griggs Work Phone: [place] [id number] DO Work Phone: Comment on above: Series: 12-05-2020 influenza virus vaccine, split virus (incl. purified surface antigen) Dion Griggs Other [facility] [employer] Other 12-05-2020 influenza virus vaccine, unspecified formulation [facility] 05-06-2020 Josephine COVID-19 Vaccine 0.5 ML Intramuscular Suspension Dion Griggs Work Phone: [facility] Comment on above: Series: 03-19-2020 diphtheria, tetanus toxoids and pertussis vaccine Dion Griggs Work Phone: [place] [address] DO Work Phone: 12-05-2019 influenza virus vaccine, split virus (incl. purified surface antigen) Dion Griggs Other [facility] [employer] Other 12-05-2019 influenza virus vaccine, unspecified formulation [facility] 11-30-2019 influenza virus vaccine, unspecified formulation ANGELI GUY [facility] 11-30-2019 influenza, high dose seasonal, preservative-free Dion Griggs Work Phone: [facility] 250 DO Work Phone: 10-31-2019 influenza virus vaccine, unspecified formulation Dion Griggs Work Phone: [facility] 11-23-2018 influenza virus vaccine, split virus (incl. purified surface antigen) Dion Anson Other [facility] [employer] Other 11-23-2018 influenza virus vaccine, unspecified formulation ANGELI GUY [facility] 11-23-2018 influenza, injectabl e, quadrivalent, preservative free Dion Griggs Work Phone: [place] [address] DO Work Phone: 10-30-2018 influenza, high dose seasonal, preservative-free Dion E Anson Work Phone: [place] [address] DO Work Phone: 04-01-2015 pneumococcal conjuga te vaccine, 13 valent Dion E Anson Work Phone: [facility] 03-01-2015 pneumococcal polysaccharide vaccine, 23 valent Dion E Anson Work Phone: [facility] Comment on above: Series: 02-27-2015 pneumococcal conjuga te vaccine, 13 valent Dion Griggs Other [facility] 02-27-2015 pneumococcal Conjuga te, unspecified formulation; 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: [Need for prophylactic vaccination against Streptococcus pneumoniae (pneumococcus)] Dion Griggs Other [facility] [employer] Other 03-01-2010 influenza virus vaccine, unspecified formulation Dion E Anson Work Phone: [place] [address] DO Work Phone: 03-01-2006 pneumococcal polysaccharide vaccine, 23 valent Dion E Anson Work Phone: [place] [address] DO Work Phone: influenza virus vaccine, unspecified formulation Dion E Anson Work Phone: [place] [address] DO Work Phone: Comment on above: 2009 Payers Date Payer Category Payer Self-pay [id number] 2017 Unknown [id number] 1959 Medicare [id number] 1959 Unknown [id number] 2.1 [id number] 1944 Unknown [id number] 2.16. [id number] 1944 Unknown [id number] 2.16. [id number] 1944 Unknown [id number] 2.16.84 [id number] 1944 Unknown [id number] 2.16.84 [id number] 1944 Unknown [id number] 2.16.84 [id number] 1944 Unknown [id number] 2.16. [id number] 1944 Unknown [id number] 2.16.8 [id number] 1944 Unknown [id number] 2.16.8 [id number] 1944 Unknown [id number] 2.16.8 [id number] 1944 Unknown [id number] 2.16.8 [id number] 1944 Unknown [id number] 2.16.8 [id number] 1944 Unknown [id number] 2.16.8 [id number] Unknown Unknown [id number] 2.16.8 [id number] Social History Date Type Detail Facility No illicit drug use [facility] Work Phone: Comment on above: 3 cups coffee daily, occasionl diet soda; 1 beer a month; Sex Assigned At [email or web address] Other Start: 03-29-2018 End: 08-26-2021 Tobacco smoking status Ex-smoker (finding) [facility] Start: 04-28-2023 Tobacco smoking status Never [facility] Start: 1945 Sex Assigned At Male F [facility] Medical Equipment Procedure Code Equipment Code Equipment Origin al Text Equipment Identifier Dates Start: 04-23-2014 Functional Status Date Assessment Result Facility 04-28-2023 Functional Status N/A [facility] 02-02-2023 Functional Status N/A [facility] 08-04-2022 Functional Status N/A [facility] 02-25-2022 Functional Status N/A [facility] 08-26-2021 Functional Status N/A [facility] Clinical Notes 08-26-2021 to 04-28-2023 [...] including vitamins, herbs, eye drops, creams, and pkgd-vqx-ofhnrrs medicines. ?Whether you are or may be [...] provider. Document Revised: 10/29/2021 Document Reviewed: 09/20/2020 [employer] Patient Education 2022 [employer]. 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 Mar, Obstructive sleep apnea (ICD-10 - G47.33) This patient is aware of the benefits associated with GEOVANNA: With continued use, the patient reduces the risk for SD, CVA, HTN, cardiac dysrhythmias and sudden cardiac [...] [BMI] 33.0-33.9, adult (ICD-10 - Z68.33) 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 Any problems you or family members [...] provider tells you to take them. Taking dqjn-bpx-yrewgrj medicines, vitamins, herbs, and supplements. Tests You [...] Follow these instructions at home: Medicines Take jwzv-rly-xlpsqkw and prescription medicines only as told by [...] provider. Document Revised: 10/29/2021 Document Reviewed: 09/27/2020 [employer] Patient Education 2022 [employer]. Follow Up Care 08/04/2022 10:55:35 With:BROOKS ANTHONY, ANGELI Montiel, URL Address: [address] [place] [address] [phone] When: Unknown Comments:sched cysto/TRUS [facility] 12-05-2023 NoteUrology Cystoscopy Cystoscopy is a [...] including vitamins, herbs, eye drops, creams, and tfkg-lnf-jnjcpon medicines. ? Any problems you or family [...] tells you to take them. ? Taking akcf-zgk-ipngpdp medicines, vitamins, herbs, and supplements. Tests You [...] these instructions at home: Medicines ? Take aqjp-hhw-deizcvi and prescription medicines only as told by [...] or the department th (more content not included)...[facility] 12-15-2022 Evaluation note* Encounter Date Diagnosis Assessment [...] f/u with pcp for further evaluation. 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) Nov, Vitamin B 12 deficiency (ICD-10 - E53.8) 05/2022 vit b 12 281 at target Nov, BMI 33.0-33.9,adult (ICD-10 - Z68.33) Setting weight-loss goals material was published [email or web address] Other 06-22-2023 Evaluation note* Encounter Date Diagnosis Assessment Notes Treatment Notes Treatment Clinical Notes Jul, Acute bacterial conjunctivitis of right eye (ICD-10 - H10.31) Wipe w/ warm wash cloth in morning Artificial tears Frequent hand washing Notify office or see account management specialist if develop pain, blurred vision or fails to improve Jul, Viral URI (ICD-10 - J06.9) Instructed to use Robitussin or Mucinex for cough, saline or Flonase NS for congestion, Tylenol for pain and fever. Jul, Type 2 diabetes mellitus with hyperglycemia (ICD-10 - E11.65) Acute infection may cause BS to increase temporarily. No adjustment in treatment necessary [email or web address] Other 06-06-2023 Hospital Discharge instructions Patient Education [...] urethra. Follow these instructions at home: Take dvht-roo-irrvfaw and prescription medicines only as told by [...] provider. Document Revised: 09/03/2021 Document Reviewed: 09/03/2021 [employer] Patient Education 2022 [employer]. Follow Up Care 02/25/2022 10:18:55 With:ANGELI GUY PA-C, URL Address: When:1 year [facility] 05[facility]02[facility]2023 Evaluation note* Encounter Date Diagnosis Assessment Notes Treatment Notes Treatment Clinical Notes June, Arteriosclerotic hea rt disease (ASHD) (ICD-10 - I25.10) LHC: 50% - 2009 [email or web address] Other 04-17-2023 Evaluation note* Encounter Date Diagnosis [...] f/u with pcp for further recommendation. May, correction current use of insulin (ICD-10 - Z79.4) May, Vitamin B 12 deficiency (ICD-10 - E53.8) 05/2022 vit b 12 281 at target May, BMI 33.0-33.9,adult (ICD-10 - Z68.33) Setting weight-loss goals material was published [email or web address] Other 12-28-2022 Hospital Discharge instructions Patient Education [...] including vitamins, herbs, eye drops, creams, and rfaz-fvx-sxiqykl medicines. ?Whether you are or may be [...] 12/13/2007 Document Revised: 06/06/2019 Document Reviewed: 12/20/2017 [employer] Patient Education 2020 [employer]. Follow Up Care 08/26/2021 10:57:16 With:ANGELI GUY PA-C, URL Address: [address] [place] [address] When: Unknown [facility] 06-28-2022 Hospital Discharge instructions Patient Education [...] Follow these instructions at home: Medicines Take fwjw-luy-eutbskt and prescription medicines only as told by [...] or the blood stops without treatment. Take eyio-hbv-sujoazz and prescription medicines only as told by your health care provider. Drink enough fluid to keep your urine clear or pale yellow. This information is not intended to replace advice given to you by your health care provider. Make sure you discuss any questions you have with your health care provider. Document Released: 02/15/2006 Document Revised: 07/12/2019 Document Reviewed: 03/20/2017 [employer] Patient Education 2020 [employer] Follow Up Care 02/25/2021 11:22:41 With:Hank Robbins MD, Kailee Szymanski, URO Address: [facility] [address], [place] [address] [phone] When:02/25/2022 [facility] evaluation + Plan note Future Appointments Appointment Date:03/10/2022 10:15:00 AM Scheduled Provider:Kailee Mckinney Jr., MD Location:[facility] Appointment Type:URO Office Visit Diagnostic Tests Pending * PSA Total 08/26/21 [facility] evaluation + Plan note Future Appointments Appointment Date:08/04/2022 10:00:00 AM Scheduled Provider:ANGELI GUY PA-C Location:[facility] Appointment Type:URO Office Visit [facility] evaluation + Plan note Future Appointments Appointment Date:02/03/2023 01:00:00 PM Scheduled Provider:ANGELI GUY PA-C Location:[facility] Appointment Type:URO Office Visit [facility] evaluation + Plan note Future Appointments Appointment Date:04/28/2023 10:00:00 AM Scheduled Provider:Sara Bob MD Location:[facility] Appointment Type:URO Office Visit [facility] Evaluation noteNo InformationNort [employer] Other Evaluation noteNoKind[employer] ([employer] Other Evaluation noteNo assessment information available [facility] Work Phone: Hisdvcz general Narrative - Reported* Type Description Date Medical History hypertension Medical History hyperlipidemia Medical History DM2 Medical History obesity Medical History CAD- 50% occlusion LAD-Sees Dr Keila oro Surgical History appendectomy Surgical History RT knee surgery Surgical History arthroscopic knee surgery, left 01/17 Surgical History Cystoscopy 05/01/2020 Hospitalization History see above surgery [email or web address] Other Histlbj general Narrative - Reported* Type Description Date [...] EGD 1997 Hospitalization History see above surgery [facility] [employer] Other History [facility] - [facility] [employer] Other Hospital course Narrative No data available for this section [facility] Discharge instructions No data available for this section [facility] Penny Progress note No data available for this section [facility] Summary Purpose Family History No Family [...] 3. Diabetes, managed by diabetes clinic at [facility] * 4. Obesity. Encouraged more weight control [...] 3. Diabetes, managed by diabetes clinic at [facility] * 4. Obesity. Encouraged more weight control [...] 3. Diabetes, managed by diabetes clinic at [facility], recent A1c 7.2 * 4. Obesity. Encouraged [...] section and content) DATE CREATED AUTHOR [facility]16/2019 [facility] DATE CREATED AUTHOR AUTHOR'S ORGANIZ ATION 03/26/2020 [employer] DATE CREATED AUTHOR AUTHOR'S ORGANIZ ATION 06/15/2022 [facility] DATE CREATED AUTHOR AUTHOR'S ORGANIZ ATION 07/01/2022 [facility] DATE CREATED AUTHOR AUTHOR'S ORGANIZ ATION 07/02/2022 [employer] DATE CREATED AUTHOR AUTHOR'S ORGANIZ ATION 04/15/2023 [facility] DATE CREATED AUTHOR AUTHOR'S ORGANIZ ATION 05/09/2023 [facility] REASON FOR VISIT (unrecogniz ed section and content) lab resultslab resultsTKM - PRIOR AUTH FOR TRULICITY VS LIT PAPDM 6 month follow up, Type 2 IDDM FOLLOW UP with [employer]TRASOUND SPEC, NUTS AND BOLTS ASSEMBLER-C, BC-ADMNo InformationNo Informationpink eyeFLU SHOTDM 6 month follow up, Type 2 IDDM FOLLOW UP with [employer]TR[employer], NUTS AND BOLTS ASSEMBLER-C, BC-ADMTKM please callface to face for CPAP [...] BE BASED ON THE PRIMARY CLINICAL RECORDS. [employer] provides no warranty or guarantee of the accuracy or completeness of information in this document.
--- NOTE | 2023-05-24 13:17 | ED.GENADUL1 ---
HPI - General Adult General Chief complaint: Abdominal Pain Stated complaint: BACK/ABDOMINAL PAIN Time Seen by Provider: 05/24/23 13:10 Source: patient and family Mode of arrival: walk-in Limitations: no limitations History of Present Illness HPI narrative: Patient is a 77-year-old male referred to the emergency department by his PCP office for possible sepsis. Patient was seen in this emergency department last week for right flank pain and was found to have a UTI. He states he was feeling well but had a return of pain 3 days ago and had 1 episode of emesis. He took 1 dose of tramadol at that time which improved his pain. He is on Cipro for UTI. He states he felt well yesterday and then today had a return of pain. He has had no fevers, no vomiting today. He does self-catheterization 3 times a day for neurogenic bladder. This was thought to contributed to the development of another urinary tract infection this month. He reports pain in the right mid back with some radiation to the right lower abdomen. He took a tramadol prior to arrival and states his pain seems to be easing at this time. He is resting comfortably at time of my evaluation. Vital signs are stable on arrival. Related Data Previous Rx's ?Medication ?Instructions ?Recorded ciprofloxacin HCl 500 mg tablet 500 mg PO BID #20 tabs 05/20/23 (Cipro) ondansetron 4 mg disintegrating 4 mg PO Q6H PRN nausea and 05/20/23 tablet vomiting #12 tabs tramadol 50 mg tablet 50 mg PO Q4H PRN pain 3 days #15 05/20/23 tabs Allergies Allergy/AdvReac Type Severity Reaction Status Date / Time No Known Drug Allergies Allergy Verified 05/24/23 12:52 Review of Systems ROS Constitutional Denies: fever or chills Ears, nose, mouth, and throat Denies: throat pain or nasal congestion Respiratory Denies: shortness of breath or cough Gastrointestinal Reports: abdominal pain; Denies: nausea, vomiting or diarrhea Genitourinary Denies: painful urination Musculoskeletal Reports: back pain; Denies: neck pain Integumentary/Breast Denies: rash Neurological Denies: headache Hematologic/Lymphatic Denies: easy bruising or easy bleeding Exam Narrative Exam Narrative: Gen.: Awake, alert, in no distress Head: Normocephalic, atraumatic ENT: Moist mucous membranes Respiratory: No respiratory distress, lungs clear bilaterally Cardio: Regular rate and rhythm Back: No CVA tenderness Gastrointestinal: Abdomen is soft, nondistended and nontender to palpation Extremities: Moves extremities equally Psych: Normal mood and affect Neuro: No focal neuro deficit Skin: Warm, dry, intact Constitutional Vital Signs, click to edit/add: Last Vital Signs Temp 98 F 05/24/23 12:52 Pulse 78 05/24/23 14:12 Resp 18 05/24/23 14:12 BP 133/73 05/24/23 14:12 Pulse Ox 96 05/24/23 14:12 O2 Del Method Room Air 05/24/23 12:52 Course Vital Signs Vital signs: Vital Signs Temperature 98 F 05/24/23 12:52 Pulse Rate 76 05/24/23 12:52 Respiratory Rate 14 05/24/23 12:52 Blood Pressure 168/108 H 05/24/23 12:52 Pulse Oximetry 96 05/24/23 12:52 Oxygen Delivery Method Room Air 05/24/23 12:52 Temperature 98 F 05/24/23 12:52 Pulse Rate 78 05/24/23 14:12 Respiratory Rate 18 05/24/23 14:12 Blood Pressure 133/73 05/24/23 14:12 Pulse Oximetry 96 05/24/23 14:12 Oxygen Delivery Method Room Air 05/24/23 12:52 Medical Decision Making MDM Narrative Medical decision making narrative: Patient treated with morphine, Zofran in the ER with IV fluids. His lab studies, vital signs were evaluated. He has no evidence of sepsis in the ER today. He does still have a mild urinary tract infection which appears improved from previous. Right upper quadrant ultrasound evaluated the gallbladder, liver and kidney. Patient with no evidence of cholecystitis. There is mild hydro nephrosis associated with the right kidney. Previous CT last week showed stranding of the right ureter. There is no evidence of ureteral obstruction at this time. Kidney function is stable, white blood cell count is normal. Discussed with Dr. Son for urology, he recommended placing a Wilkerson catheter as the patient may have reflux causing hydronephrosis and pain. Patient is agreeable to Wilkerson catheter placement. These results were related to Dr. Griggs as well. Follow-up with urology and return to the ER if symptoms change or worsen. Medical Records Medical records reviewed: Yes I reviewed the patient's medical records Lab Data Lab results reviewed: Yes I reviewed the patient's lab results Labs: Lab Results 05/24/23 05/24/23 Range/Units 13:37 15:30 WBC 10.8 (4.0-11.0) 10^3/uL RBC 4.73 (4.70-6.10) 10^6/uL Hgb 13.6 L (14.0-18.0) g/dL Hct 40.9 L (42.0-54.0) % MCV 86.5 (80.0-94.0) fL MCH 28.8 (25.9-34.0) pg MCHC 33.3 (29.9-35.2) g/dL RDW 13.0 (11.0-15.0) % Plt Count 244 (150-450) 10^3/uL MPV 8.8 L (9.5-13.5) fL Neut % (Auto) 80.6 H (43.0-75.0) % Lymph % (Auto) 7.4 L (20.5-60.0) % [place] % (Auto) 9.9 (1.7-12.0) % Eos % (Auto) 1.1 (0.9-7.0) % Baso % (Auto) 0.4 (0.2-2.0) % Neut # (Auto) 8.8 H (1.4-6.5) 10^3/uL Lymph # (Auto) 0.8 L (1.2-3.8) 10^3/uL [place] # (Auto) 1.1 H (0.3-0.8) 10^3/uL Eos # (Auto) 0.1 (0.0-0.7) 10^3/uL Baso # (Auto) 0.0 (0.0-0.1) 10^3/uL Abs Immat Gran (auto) 0.06 H (0.00-0.03) 10^3/uL Imm/Tot Granulo (auto) 0.6 H (0.0-0.5) % Sodium 140 (136-145) mmol/L Potassium 3.6 (3.5-5.1) mmol/L Chloride 102 (98-107) mmol/L Carbon Dioxide 26.5 (21.0-32.0) mmol/L Anion Gap 15.1 BUN 15.0 (7.0-18.0) mg/dL Creatinine 1.12 (0.70-1.30) mg/dL Est GFR ( Amer) >60 (>=60) Est GFR (Non-Af Amer) >60 (>=60) BUN/Creatinine Ratio 13.4 Glucose 213 H (74-106) mg/dL Lactate 1.6 (0.4-2.0) mmol/L Calcium 9.0 (8.5-10.1) mg/dL Total Bilirubin 0.6 (0.2-1.0) mg/dL AST 15 (15-37) U/L ALT 24 (16-63) U/L Alkaline Phosphatase 63 (46-116) U/L Total Protein 7.6 (6.4-8.2) g/dL Albumin 3.6 (3.4-5.0) g/dL Globulin 4.0 g/dL Albumin/Globulin Ratio 0.9 Lipase 23.0 (16.0-77.0) U/L Urine Color Yellow (YELLOW) Urine Clarity Clear (CLEAR) Urine pH 5.5 (5.0-9.0) Ur Specific [place] >=1.030 A (1.005-1.025) Urine Protein 30 A (NEG/TRACE) mg/dL Urine Glucose (UA) >=1000 A (NEGATIVE) mg/dL Urine Ketones Trace A (NEGATIVE) mg/dL Urine Occult Blood Large A (NEGATIVE) Urine Nitrite Negative (NEGATIVE) Urine Bilirubin Negative (NEGATIVE) Urine Urobilinogen 0.2 (0.2-1.0) EU/dL Ur Leukocyte Esterase Trace A (NEGATIVE) Urine RBC 50-75 A (0-2) #/HPF Urine WBC 5-10 A (NONE SEEN) #/HPF Ur Squamous Epith Cells Rare (NONE/RARE) #/LPF Urine Crystals None seen (None Seen) #/HPF Urine Bacteria Small A (NONE SEEN) #/HPF Urine Casts None seen (NONE SEEN) #/LPF Urine Mucus Moderate A (NONE SEEN) Ur Culture Indicated? Yes Imaging Data US - abdomen: Attestation: I have reviewed the pertinent imaging results. Radiologist's impression: ITS Impressions Upper Quadrant Ultrasound 05/24/23 14:00 IMPRESSION: 1 cm mid pole right renal calculus with mild right hydronephrosis. Cholelithiasis. Likely mild diffuse fatty infiltration of the liver. Electronically authenticated by: LYDIA GILMANKELSY Date: 05/24/2023 15:24 Discharge Plan Discharge Stand Alone Forms: Portal Instructions Chief Complaint: Abdominal Pain Clinical Impression: Urinary tract infection, Right flank pain Patient Disposition: Home, Self-Care Time of Disposition Decision: 16:43 Condition: Good Prescriptions / Home Meds: No Action ciprofloxacin HCl [Cipro] 500 mg tablet 500 mg PO BID Qty: 20 0RF tramadol 50 mg tablet 50 mg PO Q4H PRN (Reason: pain) 3 Days Qty: 15 0RF Rx Instructions: DX: R10.9 ondansetron 4 mg tablet,disintegrating 4 mg PO Q6H PRN (Reason: nausea and vomiting) Qty: 12 0RF Print Language: Lithuanian Instructions: Urinary Tract Infection in Men (ED), Flank Pain (ED) Referrals: Dion Griggs DO [Primary Care Provider] - 1 week Sara Bob MD [Physician] - 1-2 weeks
[2023-05-24] MEDS: 0.9 % SODIUM CHLORIDE 1,000 ML 999 ML IV (13:23)
[2023-05-24] MEDS: ONDANSETRON PF 4 MG/2 ML VIAL IV (13:24)
[2023-05-24] MEDS: MORPHINE SULFATE 2 MG/ML SYRINGE IV (13:25)
[2023-05-24 13:58] LABS: Basophils Percent Auto 0.4 % (0.2-2.0); Eosinophils Absolute Auto 0.1 10^3/uL (0.0-0.7); Eosinophils Percent Auto 1.1 % (0.9-7.0); Hematocrit 40.9 % (42.0-54.0); Hemoglobin 13.6 g/dL (14.0-18.0); Immature Granulocytes Abs Auto 0.06 10^3/uL (0.00-0.03); Immature Granulocytes Pct Auto 0.6 % (0.0-0.5); Lymphocytes Absolute Auto 0.8 10^3/uL (1.2-3.8); Lymphocytes Percent Auto 7.4 % (20.5-60.0); Mean Corpuscular HGB Conc 33.3 g/dL (29.9-35.2); Mean Corpuscular Hemoglobin 28.8 pg (25.9-34.0); Mean Corpuscular Volume 86.5 fL (80.0-94.0); Mean Platelet Volume 8.8 fL (9.5-13.5); Monocytes Absolute Auto 1.1 10^3/uL (0.3-0.8); Monocytes Percent Auto 9.9 % (1.7-12.0); Neutrophils Absolute Auto 8.8 10^3/uL (1.4-6.5); Neutrophils Percent Auto 80.6 % (43.0-75.0); Platelet Count 244 10^3/uL (150-450); Red Blood Count 4.73 10^6/uL (4.70-6.10); White Blood Count 10.8 10^3/uL (4.0-11.0)
--- NOTE | 2023-05-24 14:00 | US_ITS ---
The [address] [address] Patient Name: KAREN ESCALONA MRN: [id number] date: 1945 Sex: M Assigned Patient Location: ER Current Patient Location: ER Accession/Order Number: [id number] Exam Date: 05/24/2023 14:00 Report Date: 05/24/2023 15:24 At the request of: CARMEN HESTER Procedure: US right upper quadrant EXAM: US right upper quadrant HISTORY: right flank pain COMPARISON: None CT abdomen/pelvis dated 05/20/2023. TECHNIQUE: Limited right upper quadrant ultrasound was performed. Multiple gagnon scale and color images are submitted for review. FINDINGS: Mild diffuse increased echogenicity of the liver is seen, which is a nonspecific finding, but which can be seen with mild diffuse fatty infiltration. The portal vein is patent with normal hepatopedal flow. A gallstone is seen measuring 2.3 x 2.2 x 1.7 cm. No significant gallbladder wall thickening is seen. The gallbladder wall measures 1.9 mm in thickness. Sonographic Carlson sign is absent. Common bile duct measures 6 mm in diameter. The pancreas is poorly visualized due to obscuration by bowel gas. The right kidney measures 13.2 x 6.9 x 6 cm. A 1 cm echogenic focus suggestive renal stone is seen in the midpole of the right kidney. Mild right hydronephrosis is seen. US/US right upper quadrant IMPRESSION: 1 cm mid pole right renal calculus with mild right hydronephrosis. Cholelithiasis. Likely mild diffuse fatty infiltration of the liver. Electronically authenticated by: LYDIA WRIGHT Date: 05/24/2023 15:24
[2023-05-24 14:12] VITALS: BP 133/73; PULSE 78; RESP 18; O2SAT 96
[2023-05-24 14:34] LABS: Alanine Aminotransferase 24 U/L (16-63); Albumin Globulin Ratio 0.9; Albumin Level 3.6 g/dL (3.4-5.0); Anion Gap 15.1; Aspartate Amino Transferase 15 U/L (15-37); BUN Creatinine Ratio 13.4; Bilirubin Total 0.6 mg/dL (0.2-1.0); Carbon Dioxide 26.5 mmol/L (21.0-32.0); Chloride 102 mmol/L (98-107); Estimated GFR (African America >60 (>=60); Estimated GFR (Non-African Ame >60 (>=60); Glucose 213 mg/dL (74-106); Potassium 3.6 mmol/L (3.5-5.1); Sodium 140 mmol/L (136-145); Total Protein 7.6 g/dL (6.4-8.2)
[2023-05-24 14:36] LABS: Lactate/Lactic Acid 1.6 mmol/L (0.4-2.0)
[2023-05-24 14:54] LABS: Alkaline Phosphatase 63 U/L (46-116)
[2023-05-24 15:37] LABS: Bilirubin Urine NEGATIVE (NEGATIVE); Blood Urine LARGE (NEGATIVE); Clarity Urine CLEAR (CLEAR); Color Urine YELLOW (YELLOW); Glucose Urine UA >=1000 mg/dL (NEGATIVE); Ketones Urine TRACE mg/dL (NEGATIVE); Leukocyte Esterase Urine TRACE (NEGATIVE); Nitrite Urine NEGATIVE (NEGATIVE); Protein Urine 30 mg/dL (NEG/TRACE); Specific Gravity Urine >=1.030 (1.005-1.025); Urobilinogen Urine 0.2 EU/dL (0.2-1.0); pH Urine 5.5 (5.0-9.0)
[2023-05-24 15:39] LABS: Urine Microscopic Indicated YES
[2023-05-24 16:09] LABS: Bacteria Urine SMALL #/HPF (NONE SEEN); Cast Seen? NONE SEEN #/LPF (NONE SEEN); Crystals Seen? None Seen #/HPF (None Seen); Mucus Urine MODERATE (NONE SEEN); RBC Urine 50-75 #/HPF (0-2); Squamous Epithelial Cell Urine RARE #/LPF (NONE/RARE); Urine Culture Indicated YES
[2023-05-25 23:52] LABS: A. calcoaceticus-baumannii Cpx NOT DETECTED (NOT DETECTE); Bacteroides fragilis NOT DETECTED (NOT DETECTE); Candida albicans NOT DETECTED (NOT DETECTE); Candida auris NOT DETECTED (NOT DETECTE); Candida glabrata NOT DETECTED (NOT DETECTE); Candida krusei NOT DETECTED (NOT DETECTE); Candida parapsilosis NOT DETECTED (NOT DETECTE); Candida tropicalis NOT DETECTED (NOT DETECTE); Cryptococcus neoformans/gattii NOT DETECTED (NOT DETECTE); Enterobacter cloacae complex NOT DETECTED (NOT DETECTE); Enterobacterales NOT DETECTED (NOT DETECTE); Enterococcus faecalis NOT DETECTED (NOT DETECTE); Enterococcus faecium NOT DETECTED (NOT DETECTE); Haemophilus influenzae NOT DETECTED (NOT DETECTE); Klebsiella aerogenes NOT DETECTED (NOT DETECTE); Klebsiella pneumoniae group NOT DETECTED (NOT DETECTE); Listeria monocytogenes NOT DETECTED (NOT DETECTE); Neisseria meningitidis NOT DETECTED (NOT DETECTE); Proteus spp. NOT DETECTED (NOT DETECTE); Pseudomonas aeruginosa NOT DETECTED (NOT DETECTE); Salmonella spp. NOT DETECTED (NOT DETECTE); Serratia marcescens NOT DETECTED (NOT DETECTE); Staphylococcus epidermidis NOT DETECTED (NOT DETECTE); Staphylococcus lugdunensis NOT DETECTED (NOT DETECTE); Staphylococcus spp. NOT DETECTED (NOT DETECTE); Stenotrophomonas maltophilia NOT DETECTED (NOT DETECTE); Streptococcus agalactiae NOT DETECTED (NOT DETECTE); Streptococcus pneumoniae NOT DETECTED (NOT DETECTE); Streptococcus pyogenes NOT DETECTED (NOT DETECTE); Streptococcus spp. NOT DETECTED (NOT DETECTE)
[2023-05-26 12:41] LABS: Source blood
== END 2023-05-24 17:02 | disposition home or self-care (01) ==
PROVIDERS: Physician Assistant; Emergency Provider Emergency Medicine; PCP Internal Medicine
DX: N39.0 Urinary tract infection, site not specified (principal); R10.9 Unspecified abdominal pain; N31.9 Neuromuscular dysfunction of bladder, unspecified
CPT/HCPCS: 36415; 51702; 76705; 80053; 81001; 83605; 83690; 85025; 87040; 87086; 87150; 96374; 96375; 99284

== ENCOUNTER 2023-06-22 09:01 | Outpatient (OUT) | payer MEDICARE, SELFPAY ==
[2023-06-22 10:32] LABS: Alanine Aminotransferase 34 U/L (16-63); Albumin Level 3.7 g/dL (3.4-5.0); Alkaline Phosphatase 48 U/L (46-116); Anion Gap 14.4; Aspartate Amino Transferase 20 U/L (15-37); BUN Creatinine Ratio 18.3; Bilirubin Total 0.5 mg/dL (0.2-1.0); Calcium 9.2 mg/dL (8.5-10.1); Carbon Dioxide 26.8 mmol/L (21.0-32.0); Chloride 106 mmol/L (98-107); Chol HDL Ratio 2.1; Cholesterol 102 mg/dL (<=200); Estimated GFR (African America >60 (>=60); Estimated GFR (Non-African Ame >60 (>=60); Globulin 3.6 g/dL; Glucose 82 mg/dL (74-106); HDL Cholesterol 49 mg/dL (40-60); LDL Cholesterol Calculated 40.2 mg/dL; Potassium 4.2 mmol/L (3.5-5.1); Sodium 143 mmol/L (136-145); Total Protein 7.3 g/dL (6.4-8.2); Triglycerides 64 mg/dL (<=150); VLDL CHOLESTEROL 12.8 mg/dL
[2023-06-22 12:31] LABS: Creatinine Urine Random 136.06 mg/dL (20.00-300.00); Microalbum Creatinine Ratio Ur 28.6 mg/g (0.0-29.9); Microalbumin Urine Random 3.9 mg/dL (<=30.0)
== END 2023-06-22 09:02 | disposition home or self-care (01) ==
LOC: LAB 09:04
PROVIDERS: PCP Internal Medicine
DX: E11.65 Type 2 diabetes mellitus with hyperglycemia (principal); E53.8 Deficiency of other specified B group vitamins; E78.5 Hyperlipidemia, unspecified
CPT/HCPCS: 36415; 80053; 80061; 82043; 82570; 82607

== ENCOUNTER 2023-06-29 08:59 | Outpatient (OUT) | payer MEDICARE, SELFPAY ==
[2023-06-29 10:27] LABS: Bilirubin Urine NEGATIVE (NEGATIVE); Blood Urine LARGE (NEGATIVE); Clarity Urine SL CLOUDY (CLEAR); Color Urine YELLOW (YELLOW); Glucose Urine UA NEGATIVE (NEGATIVE); Ketones Urine NEGATIVE (NEGATIVE); Leukocyte Esterase Urine SMALL (NEGATIVE); Nitrite Urine POSITIVE (NEGATIVE); Protein Urine NEGATIVE (NEG/TRACE); Specific Gravity Urine 1.025 (1.005-1.025); Urobilinogen Urine 0.2 EU/dL (0.2-1.0); pH Urine 5.5 (5.0-9.0)
== END 2023-06-29 09:00 | disposition home or self-care (01) ==
LOC: LAB 09:04
PROVIDERS: PCP Internal Medicine; Visit Provider Internal Medicine
DX: R33.9 Retention of urine, unspecified (principal); R30.0 Dysuria
CPT/HCPCS: 81003; 87086; 87150; 87186

== ENCOUNTER 2023-09-27 18:16 | Observation (INO) | payer MEDICARE, SELFPAY ==
[2023-09-27 18:27] VITALS: BP 167/82; PULSE 102; TEMP 36.8; O2SAT 96; BMI 31.3
--- OUTSIDE RECORDS SUMMARY | 2023-09-27 18:29 | XMS_ITS | CCD ---
Author Organization [facility] CliniSyor Care Team Providers Care Bioprocessing Manufacturing Technician Name Role Phone CACHORRO ROBLERO Referring Unavailable CLIFF RODRIGUEZ Attending Unavailable PROVIDER, UNKNOWN Admitting Unavailable PROVIDER, UNKNOWN Attending Unavailable PROVIDER, UNKNOWN Admitting Unavailable PROVIDER, UNKNOWN Admitting Unavailable PROVIDER, UNKNOWN Attending Unavailable Dion Griggs Unavailable Unavailable Unavailable Mapus, Tondra Unavailable DION GRIGGS Primary Care Physician [phone] MAPUS, TONDRA Admitting Unavailable MAPUS, TONDRA Attending Unavailable GABRIEL, DR LOPEZ Primary Care Unavailable MAPUS, TONDRA Consulting Unavailable MAPUS, TONDRA Admitting Unavailable MAPUS, TONDRA Attending Unavailable GABRIEL, DR LOPEZ Primary Care Unavailable MAP, TONDRA Consulting Unavailable HANK Valente, DR KAILEE Szymanski Admitting Unavaila hemal Valente, DR KAILEE Szymanski Attending Unavaila ble GABRIEL, DR LOPEZ Primary Care Unavailable HANK Valente, DR KAILEE Szymanski Consulting Unavaila Dion Soto Unavailable Jaleesa Conn Attending Unavailable Jaleesa Conn Referring Unavailable Dr. Dion Griggs [place] Primary Care Unavai lable Mapus, Tondra K Attending Unavailable Danikaus, Tondra K Admitting Unavailable Dion Griggs Primary Care Unavailable Dion Griggs DO Primary Care Provider Ton Rhodes Attending Unavailable Ton Rhodes Admitting Unavailable Dion Griggs Primary Care Unavailable Sara Bob Attending Unavailable ANGELI GUY Attending Unavailable ANGELI GUY Attending Unavailable ANGELI GUY Attending Unavailable ANGELI GUY Attending Unavailable Sara Bob. Attending Unavailable Sara Bob Attending Unavailable JALEESA CONN Attending Unavailable DION GRIGGS Primary Care Unavailable Allergies Allergy Classification Reported Allergen(s) Allergy Type Date of Onset Reaction(s) Facility (3 sources) patient allergy list reviewed by nurse or physicia Propensity to adverse reactions Comment:Done [place] Other (1 source) No Known Medication Allergies; 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: [No Known Medication Allergies] Propensity to adverse reactions to drug (disorder) [facility] Repository Medications Current Medications Medication Drug Class(es) Dates Sig (Normalized) Sig (Original) amLODIPine 5 mg oral tablet (12 sources) Dihydropyridine Calcium Channel Laura Start: 05-24-2023 take 5 mg by mouth once daily Amlodipine Active 5 MG PO Daily May 24, 2023 12:00am Start: 06-30-2022 take 1 tablet by lorena th every twenty-four hours amLODIPine Besylate 5 MG 1 tablet Orally Once a day June, Active amLODIPine 5 mg / benazepril hydrochloride 20 mg oral capsule (7 sources) Dihydropyridine Calcium Channel Laura, Angiotensin Converting Enzyme Inhibitor Start: 08-04-2022 amLODIPine-benazepril 5 mg-20 mg Cap Refill(s) 0 Start Date: 08/04/22 Status: Ordered Start: 07-23-2022 take 5-20 mg by mout h once daily amLODIPine Besy-Benazepril HCl - 5-20 MG Oral Capsule ONE PILL DAILY Quantity: 90 Refills: 3 Ordered: 23-Jul-2022 Jaleesa Conn MD Start : 23-Jul-2022 Active Amoxicillin (1 source) Penicillin-class Antibacterial Start: 02-28-2020 amoxicillin 875 mg Start Date: 02/28/20 Status: Ordered aspirin 81 mg delayed release oral tablet (20 sources) Platelet Aggregation Inhibitor, Nonsteroidal Anti-inflammatory Drug Start: 05-24-2023 take 81 mg by mouth every other day Aspirin Active 81 MG PO .QOD May 24, 2023 12:00am Start: 03-05-2020 aspirin 81 mg oral tablet Daily Start Date: 03/05/20 Status: Ordered take 1 tablet by lorena th every other day Aspir-Low 81 MG 1 tablet Orally every other day Active azithromycin 250 mg oral tablet (5 sources) Macrolide Antimicrobial Start: 07-02-2022 Azithromycin 250 MG as directed Orally daily for 5 days June, Active b complex 0.4 mg tablet (1 source) End: 06-30-2023 take 1 tablet by mouth once daily b complex 0.4 mg tablet Take 1 tablet by mouth once daily. 06/30/2023 Discontinued (Therapy completed) cholecalciferol 0.025 mg oral capsule (16 sources) Vitamin D Start: 06-24-2023 take 25 ug by mouth every other day Cholecalciferol (Vitamin D3) Active 25 MCG PO .every other day June 24, 2023 1:38pm Start: 05-24-2023 End: 06-24-2023 take 25 ug by mouth once daily Cholecalciferol (Vitami n D3) Discontinued 25 MCG PO Daily May 24, 2023 12:00am June 24, 2023 1:41pm [facility] cholecalciferol (Vitamin D-3) 25 MCG (1000 UT) tablet Take 1 tablet (1,000 Units) by mouth every other day. Active take 1 capsule by mo [facility] every twenty-four hours Vitamin D3 25 MCG (1000 UT) 1 capsule Orally Once a day Active take 1 capsule by mo [facility] every week Vitamin D3 10 MCG (400 UNIT) Oral Capsule 1 CAPSULE EVERY WEEK Quantity: 0 Refills: 0 Ordered: 06-Jan-2021 DO Active 0.5 ml dulaglutide 3 mg/ml auto-injector (20 sources) GLP-1 Receptor Agonist Start: 02-25-2021 inject 1.5 mg by subcutaneous injection every week Dulaglutide Active 1.5 MG SUBCUT every week May 24, 2023 12:00am dulaglutide (NILAM LICITY SUBQ) Inject under the skin 1 (one) time per week. Active Trulicity (dulag lutide injection pen) 1.5mg/0.5 ml 1.5mg / 0.5 ml one dose inject weekly Active Fish Oils (19 sources) Start: 03-05-2020 Fish Oil Oral Start Date: 03/05/20 Status: Ordered take 1 capsule by mouth every ot her day Fish Oil 1000 mg 1 capsule Orally every other day Active glipiZIDE 10 mg oral tablet (20 sources) Sulfonylurea Start: 02-28-2020 take 10 mg by mouth once daily Glipizide Active 10 MG PO Daily May 24, 2023 12:00am glipiZIDE 10 MG TAKE 1 TABLET TWICE A DAY for 90 Active take 2 tablets by mouth once alka ly glipiZIDE 10 MG Oral Tablet TAKE 2 TABLET Daily Quantity: 0 Refills: 0 Ordered: 06-Jan-2021 DO Active 3 ml insulin glargine 100 unt/ml pen injector (20 sources) Insulin Analog Start: 06-24-2023 Insulin Glargi ne (Basaglar Kwikpen U-100 Insulin) 100 unit/mL (3 mL) insulin pen Active 32 UNIT SUBCUT Daily at bedtime June 24, 2023 1:40pm Start: 05-24-2023 End: 06-24-2023 Insulin Glargine (Basaglar K wikpen U-100 Insulin) 100 unit/mL (3 mL) insulin pen Discontinued 34 UNIT SUBCUT Daily at bedtime May 24, 2023 12:00am June 24, 2023 1:41pm insulin glargine (Basaglar KwikPen U-100 Insulin) 100 unit/mL (3 mL) pen Inject 31 Units under the skin. As directed. Active Basaglar KwikPen 100 UNIT/ML 34 units Subcutaneous hs Active Basaglar KwikPen 100 UNIT/ML 30 units Subcutaneous hs Active Basaglar KwikPen 100 UNIT/ML 29 units Subcutaneous hs Active Humalog (7 sources) Insulin Analog Start: 03-05-2020 Humalog SubCutaneous, As Directed Start Date: 03/05/20 Status: Ordered 24 hr metFORMIN hydrochloride 500 mg extended release oral tablet (20 sources) Biguanide Start: 06-24-2023 take 2 tablets by mouth twice daily at breakfast, then take 1 tablet by mouth at dinner Metformin Active 500 MG PO Twice daily June 24, 2023 1:40pm 2 tablet with breakfast and 1 tablet with dinner Start: 05-24-2023 End: 06-24-2023 take 2 tablets by mouth once daily at breakfast, then take 1 tablet by mouth at dinner Metformin Discontinued 500 MG PO Daily May 24, 2023 12:00am June 24, 2023 1:41pm 2 tablet with breakfast and 1 tablet with dinner Start: 05-20-2020 metFORMIN HCl ER 500 MG 2 tablet BID with breakfast and dinner Orally BID for 90 day(s) Pt could not tolerate IR metformin d/t g/i s/e Apr, Active Start: 02-28-2020 metformin 1,00 0 mg, Oral Start Date: 02/28/20 Status: Ordered take 1 tablet by lorena twice daily at mealtime metFORMIN (Glucophage) 1,000 mg tablet Take 1 tablet (1,000 mg) by mouth 2 times a day with meals. Active take 2 tablets by mo [facility] once at breakfast, then take 1 tablet by mouth twice daily at dinner metFORMIN HCl ER 500 MG 2 tablet with breakfast and 1 tablet with dinner Orally BID Pt could not tolerate IR metformin d/t g/i s/e Active omega 6-zmk-xaz-fish oil (Fish OiL) 1,000 mg (120 mg-180 mg) capsule (1 source) take 2 capsules by mouth every other day omega 4-leo-lqb-fish oil (Fish OiL) 1,000 mg (120 mg-180 mg) capsule Take 2 capsules (2,000 mg) by mouth every other day. Active 0.25 mg, 0.5 mg dose 1.5 ml semaglutide 1.34 mg/ml pen injector (3 sources) Start: Ozempic (0.25 or 0.5 MG/DOSE) 2 MG/1.5ML 0.5mg Subcutaneous once weekly Jul, Active simvastatin 40 mg oral tablet (20 sources) HMG-CoA Reductase Inhibitor Start: End: take 40 mg by mouth once daily Simvastatin Active 40 MG PO Daily May 24, 2023 12:00am sulfacetamide sodium 100 mg/ml ophthalmic solution (5 sources) Sulfonamide Antibacterial Start: take 2 drop(s) into the eye(s) four [...] Daily, # 30 cap(s), Refills(s) 11, Pharmacy: [facility]/pharmacy #[id number], 168, cm, 02/25/22 9:50:00 EST, Height/Length Dosing, 84.2, kg, 02/25/22 9:50:00 EST, Weight Dosing Start Date: 02/25/22 Status: Ordered Vitamin B Complex (11 sources) Vitamin B Comple x - as directed Orally Active vitamin b12 1 mg oral tablet (1 source) Vitamin B12 take 1 tablet by mouth every other day cyanocobalamin (Vitamin B-12) 1,000 mcg tablet Take 1 tablet (1,000 mcg) by mouth every other day. Active Vitamin D3 25 MCG (1000 UT) (8 sources) take 1 capsule by mouth once alka ly Vitamin D3 25 MCG (1000 UT) 1 capsule Orally Once a day Active Completed/Discontinued Medications Medication Drug Class(es) Dates Sig (Normalized) Sig (Original) B-Complex With Vitamin C (3 sources) Start: 05-24-2023 End: 06-24-2023 take 1 tablet by mouth once daily B-Complex With Vitamin C Discontinued 1 TAB PO Daily May 24, 2023 12:00am June 24, 2023 1:38pm Start: 05-24-2023 take 1 tablet by lorena th once daily B-Complex With Vitamin C Active 1 TAB PO Daily May 24, 2023 12:00am cefdinir 300 mg oral capsule (1 source) Cephalosporin Antibacterial Start: 07-02-2023 End: 09-06-2023 take 300 mg by mouth twice daily Cefdinir Discontinued 300 MG PO Twice daily 42 July 02, 2023 12:00am September 06, 2023 10:03am empagliflozin 12.5 mg / metFORMIN hydrochloride 1000 mg oral tablet (3 sources) Biguanide, Sodium-Glucose Cotransporter 2 Inhibitor Start: 08-26-2020 take 1 tablet by mouth every twelve hours Synjardy 12.5-1000 MG 1 tablet with meals Orally Twice a day for 90 days Jul, Not-Taking finasteride 5 mg oral tablet (20 sources) 5-alpha Reductase Inhibitor Start: 02-25-2022 End: 06-30-2023 take 5 mg by mouth once daily Finasteride Discontinued 5 MG PO Daily May 24, 2023 12:00am June 24, 2023 1:40pm Fish Oil 1000 MG Oral Capsule Delayed [...] UNIT/ML 27 units Subcutaneous qhs Jul, Not-Taking levoFLOXacin 500 mg oral tablet (1 source) Quinolone Antimicrobial Start: 06-28-2023 End: 07-02-2023 take 500 mg by mouth once daily Levofloxacin Discontinued 500 MG PO Daily 14 June 28, 2023 12:00am July 02, 2023 1:03pm lisinopril 10 mg oral tablet (20 sources) Angiotensin Converting Enzyme Inhibitor Start: 05-24-2023 End: 06-24-2023 take 10 mg by mouth once daily Lisinopril Discontinued 10 MG PO Daily May 24, 2023 12:00am June 24, 2023 1:40pm Start: 02-28-2020 End: 06-30-2023 take 1 tablet by mouth once daily lisinopril 20 mg Tab 20 mg = 1 tab(s), Oral, Daily Start Date: 02/28/20 Status: Ordered take 1 tablet by [facility] every twenty-four hours Lisinopril 10 mg 1 tablet Orally daily Active [place] 5-Isu-Qkr-Fish Oil (Fish Oil) 1,000 mg (120 mg-180 mg) capsule (3 sources) Start: 05-24-2023 End: 06-24-2023 take 1 capsule by mouth once daily [place] 4-Lws-Bio-Fish Oil (Fish Oil) 1,000 mg (120 mg-180 mg) capsule Discontinued 1 CAP PO Daily May 24, 2023 12:00am June 24, 2023 1:40pm Start: 05-24-2023 take 1 capsule by mo [facility] once daily [place] 3-Sel-Qbr-Fish Oil (Fish Oil) 1,000 mg (120 mg-180 mg) capsule Active 1 CAP PO Daily May 24, 2023 12:00am ReliOn Prime Monitor 1 (3 sources) Start: 04-16-2014 ReliOn Prime M onitor 1 [...] E11.9 bid for 90 days Apr, Active traMADol hydrochloride 50 mg oral tablet (3 sources) Opioid Agonist Start: 05-24-2023 End: 06-24-2023 take 50 mg by mouth every four hours Tramadol Discontinued 50 MG PO Every 4 hours May 24, 2023 12:00am June 24, 2023 1:41pm Trulicity SOPN (4 sources) Trulicity SOPN U SE DIRECTED Quantity: 0 Refills: 0 Ordered: 01-Jul-2021 DO Active Vitamin B Complex CAPS (2 sources) Vitamin B Comple x CAPS TAKE 1 CAPSULE Daily Quantity: 0 Refills: 0 Ordered: 30-Jun-2022 DO Active Problems Active Problems Problem Classification Problem Date Documented Date Episodic/Chronic Administrative/social admission (4 sources) Dietary counseling and surveillance; 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: [Dietary surveillance and counseling] Episodic Biliary tract disease (4 sources) Cholelithiasis without obstruction; 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: [Calculus of gallbladder without cholecystitis without obstruction] Episodic Calculus of urinary tract (3 sources) Kidney stone; 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: [Calculus of kidney] 05-24-2023 Episodic Coronary atherosclerosis and other heart disease (20 sources) Arteriosclerotic vascular disease; 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: [Cardiovascular disease, unspecified] Onset: 09-25-2015 02-28-2020 Chronic Deficiency and other anemia (14 sources) Pernicious anemia; 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: [Vitamin B12 deficiency anemia due to intrinsic factor deficiency] Episodic Deficiency and other anemia (1 source) Anemia; 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: [Anemia, unspecified] 09-06-2023 Episodic Deficiency and other anemia (1 source) Anemia, unspecified; 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: [Anemia, unspecified] 09-06-2023 Episodic Diabetes mellitus with complications (20 sources) Hyperglycemia due to type 2 diabetes mellitus; 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: [Type 2 diabetes mellitus with hyperglycemia] Onset: 11-07-2013 Chronic Diabetes mellitus without complication (20 sources) Diabetes mellitus; 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: [Diabetes mellitus without mention of complication, type II or unspecified type, not stated as uncontrolled] Onset: 02-23-2023 02-28-2020 Chronic Disorders of lipid metabolism (20 [...] Chronic Immunizations and screening for infectious disease (13 sources) Patient encounter status; 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: [Other specified vaccination] 06-24-2023 Episodic Inflammation; infection of eye (except that caused by tuberculosis or sexually transmitteddisease) (1 source) Unspecified acute conjunctivitis, right eye Episodic Inflammatory conditions of male genital organs (17 sources) Chronic prostatitis; 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: [Chronic prostatitis] Onset: 02-06-2022 Resolved: 04-28-2020 04-18-2020 Chronic Nutritional deficiencies (7 sources) Vitamin D deficiency; 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: [Vitamin D deficiency, unspecified] Chronic Nutritional deficiencies (7 sources) Deficiency of other specified B group vitamins; 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: [Cobalamin deficiency] Onset: 06-15-2022 Episodic Osteoarthritis (20 sources) Osteoarthritis of right knee joint; 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: [Arthritis of right knee] 02-28-2020 Chronic Other aftercare (20 sources) Long-term current use of insulin; 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: [assistant terminal manager (current) use of insulin] 05-24-2023 Episodic Other aftercare (6 sources) assistant terminal manager (current) use of insulin; 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: [senior care (current) use of insulin (Multi)] Onset: 02-23-2023 Episodic Other aftercare (4 sources) Long-term current use of drug therapy; 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: [Other manager intermediate (current) drug therapy] Episodic Other diseases of bladder and urethra (8 sources) Male urethral stricture; 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: [Unspecified urethral stricture, male, unspecified site] Onset: 04-28-2023 05-21-2020 Episodic Other diseases of kidney and ureters (5 sources) Acquired renal cyst without neoplastic change; 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: [Cyst of kidney, acquired] Onset: 08-26-2021 Episodic Other diseases of kidney and ureters (7 sources) Simple renal cyst 05-21-2020 Episodic Other injuries and conditions due to external causes (4 sources) History of fall; 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: [History of falling] Episodic Other nutritional; endocrine; and metabolic disorders (18 sources) Obesity; 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: [Obesity, unspecified] Chronic Other nutritional; endocrine; and metabolic disorders (17 sources) Body mass index 30+ - obesity; 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: [Body mass index (BMI) 32.0-32.9, adult] Onset: 06-30-2023 05-24-2023 Chronic Other nutritional; endocrine; and metabolic disorders (20 sources) Obese class I; 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: [Body mass index (BMI) 31.0-31.9, adult] Onset: 09-25-2015 Chronic Other nutritional; endocrine; and metabolic disorders (3 sources) Body mass index (BMI) 33.0-33.9, adult Chronic Other nutritional; endocrine; and metabolic disorders (7 sources) Obesity caused by energy imbalance; 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: [Other obesity due to excess calories] 05-24-2023 Chronic Other nutritional; endocrine; and metabolic disorders (2 sources) Other obesity due to excess calories Chronic Other nutritional; endocrine; and metabolic disorders (3 sources) Body mass index (BMI) 32.0-32.9, adult; 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: [Body mass index (BMI) 32.0-32.9, adult] Onset: 06-30-2023 Chronic Other screening for suspected conditions (not [...] Onset: 05-24-2018 02-28-2020 Chronic Residual codes; unclassified (5 sources) Obstructive sleep apnea (adult) (pediatric); 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: [Obstructive sleep apnea (adult)(pediatric)] Onset: 06-30-2023 Chronic Screening and history of mental health and substance abuse codes (11 sources) Ex-smoker; 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: [Personal history of tobacco use] Onset: 04-08-2023 06-30-2023 Episodic Substance-related disorders (4 sources) Tobacco user; 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: [Nicotine dependence, cigarettes, in remission] Onset: 05-11-2016 Chronic Unclassified (7 sources) Asymptomatic microscopic hematuria 02-25-2021 Unclassified (7 sources) Finding of sensation of bladder 02-25-2021 Unclassified (4 sources) Patient encounter status 02-02-2023 Urinary tract infections (1 source) Tubulo-interstitial nephritis, not specified as acute or chronic; 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: [Pyelonephritis, unspecified] 05-24-2023 Episodic Past or Other Problems Problem Classification Problem [...] Spondylosis; intervertebral disc disorders; other back problems (7 sources) Thoracic back pain; 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: [Pain in thoracic spine] Onset: 3 Resolved: 1 02-23-2023 Episodic Superficial injury; contusion (4 sources) Abrasion of head; 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: [Abrasion of other part of head, initial encounter] Resolved: 1 Episodic Syncope (4 sources) Syncope and collapse; 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: [Syncope and collapse] Resolved: 1 Episodic Unclassified (4 sources) Long-term current use of drug therapy; 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: [Long-term (current) use of other medications] Onset: 7 Unclassified (1 source) Onset: 4 06-30-2023 Viral infection (7 sources) Disease caused by 2019-nCoV; 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: [Other specified viral infection] Resolved: 3 Episodic Viral infection (4 sources) Disease caused by 2019-nCoV; 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: [COVID-19] Resolved: 1 Results Test Name Value Interpretation Reference Range Facility Reminderson 07-27-2023 Reminders - From: Mayte Edmonds To: GARO - Recalls Ludinesh; Sent: 04/28/2023 10:39:26 EST Show up: 07/05/2023 10:39:00 EDT Subject: Schedule Urodynamics Due Date/Time: 08/05/2023 10:39:00 EDT Reminder/Recall Per KML, patient needs to be scheduled to have Urodynamics done once she returns as of July. Will need to call patient prior to KM's return to schedule, once [facility] provides the Urodynamics days/times for July. Called patient, no answer. LM to return call to the office. From: Mayte Edmonds ( - Shawn Bob) To: Sara Bob MD; Sent: 07/22/2023 16:11:53 EDT ! Show up: 07/22/2023 16:11:00 EDT See message below from previous message created on 06/04/23. Patient is now being seen by Dr. Rhodes and no longer desires being seen in our office. From: Mayte Edmonds Sent: 06/04/2023 09:52:41 EDT Subject: Cancel Procedure Caller Name: JOSEPH ESCALONA; Caller Number: H , B Patient called the PAC earlier today and was upset stating he wanted to cancel the upcoming urodynamics with [facility] on 06/21/23. Patient was advised that needed to be cancelled by a senior systems administrator and began yelling at the PAC, stating to just cancel the procedure. I called the patient to discuss the procedure information with him. Patient stated he does want to cancel the Urodynamics with [facility], when I asked him the reason for cancelling he stated I have a new doctor. I asked him to clarify if that means he is no longer wanting to be seen by our office and patient stated yes. States he has a new Urologist and will no longer be coming to our office for care. I advised patient I would cancel the procedure and put a note in his chart, and if he needed anything further to give our office a call. Patient voiced his understanding. Normal [facility] Automated urine specific gra vity by refractometryon 06-29-2023 Specific gravity Refractometry automated (U) [Rel density] 1.025 1.005-1.025 [facility] Bilirubin Auto test strip (U ) [Mass/Vol]on 06-29-2023 Bilirubin (U) [Mass/Vol] Negative NEGATIVE [facility] Color Auto (U)on 06-29-2023 Color (U) YELLOW YELLOW [facility] Glucose [Mass/volume] in Uri ne by Test stripon 06-29-2023 Glucose Test strip (U) [Mass/Vol] Negative NEGATIVE [facility] Ketones Auto test strip (U) [Mass/Vol]on 06-29-2023 Ketones (U) [Mass/Vol] Negative NEGATIVE [facility] - Microbiology an d Antimicrobial susceptibilityOrdered By: Dion Griggs on 06-29-2023 Bacteria identified Cx Nom (U) [facility] Protein Auto test strip (U) [Mass/Vol]on 06-29-2023 Protein (U) [Mass/Vol] Negative NEG/TRACE [facility] Specific gravity Auto test s trip (U) [Rel density]on 06-29-2023 Specific gravity (U) [Rel density] SL CLOUDY CLEAR [facility] Urine hemoglobin detection b y automated test stripon 06-29-2023 Hemoglobin Auto test strip Ql (U) LARGE Abnormal NEGATIVE [facility] Urine nitrite detection by a utomated test stripon 06-29-2023 Nitrite Auto test strip Ql (U) SMALL Abnormal NEGATIVE [facility] Nitrite Auto test strip Ql (U) Positive Abnormal NEGATIVE [facility] Urobilinogen Auto test strip (U) [Mass/Vol]on 06-29-2023 Urobilinogen Qn (U) 0.2 {Raeann'U}/dL 0.2-1.0 [facility] pH Auto test strip (U)on pH (U) 5.5 [pH] 5.0-9.0 [facility] Coding Summaryon 06-24-2023 Coding Summary HTMLBase 64 EordaclpLAy1gUn+PGhlY WQ+PA2GQFGtK83maEShrD 1yP3NLFLtKRxklGJTUZFz ORfVcgsHoCY0ujDCkGYFo IC8+YY1xFHArQmqzoMIft 7G5wQV2K86dwn3oMMwjgB Y8EKWpMqDryqfzq3apkOd 6IDcuNmluOyBt EYLpgI29LYS9vI55Vj23a XBwqGLwe2fmhWe2OlMxHL WyKBH7qGazIRoia2CaVGA aA13hvXPtn8U8 OSNdsPxpmIMgAiBohEB7t C8eZCileettz3llvknfIh r4qg98aGXav0R5xQB2S9V cjaP5RRQrcKBn VmqixHBGxD2jsvhha3coj ftiRpAoWWIlJTk6NYx8GH TqzDotDxZqWF38UTR3IVM vpiXwN8IkCWCh sUukMuZ8b5V3Ty8YY3QGV xgxP9IWFTWGQRoznFN+PC 86jk99U2UjYgesHqa2VWL bSDF4bMM9gG0p UYWtUBvxg5O9uKW6W0Wdv nNpwk5sp3ilZKYhJChnD9 8leCGou8E4WLTuwZG9WVM duMqhTqBnbE70 Oyc+JRCszUejm2WcNzlus 0dhk1dubSy0BzncXYNgxx ZsrJxcIOD3o8NdHa4yGWS fvXI1aWU1pU2n ZaWqErR3OKggW490HcGhs ESxLiqzX98iC8XmeNU+PH KiUbm2DMXppRijCA4rH6O hZGRpbmctbGVm nZfiGA4mMNRwurhkVXKfg Z6vRGBlL0p4PkDbDiH1ST bqL6NiTFRbmxbgGz78uJ0 tBkYnUyG1NVrs O9ZyxjI2ZSMlzWVkELgeF RJ3W24rd2D2MYQsVFVpVV G8xUQ7iA4adYqkjuczrSJ mdDsgdmVydGlj DMhqAWepU297FQKspXokC kNvZGluZyBEYXRlOiAgMD QvMjUvMjAyNDwvdGQ+PHR kBKQ5rYwpUNBj sDAjORckIo2xeDnjiGxsA Q4dGVSqifoxQMTgbY3cIE RchNBisPwoPX5sIDUzrhf ih892KhKvRAA3 HBAgqPRgW0XsnL1aKiBeF USnGMQhL8AsrSYnSIrtP9 64UAeiBdD8PIEjhhZbT2X sLWFsaWduOiB0 l8I8Un5Uc0PbetxfO8Ufb SAxFsUlCsxzEOb7W8ZlNg wvdHI+HW11HXPuPB75JLv 9EQQ1sTutYCdg KLJmI6BgwE4lBsPgPEWwL GRkOyc+PHRhYmxlIHdpZH RoPScxMDAlJyBzdHlsZT0 dBr4dFYYqDVOc eVrhfQItFdEwm1gmEUHrD ExyBD7bbUxeU3KudQX6SD Gnu4m9Gp76P90pB0HqtAE +EWAheCV2eYS0 jV1lVzBaRoT5BCqmG976D lTwuVOxEgsfd7ckd1rdrV r8TsN2GEKrebGlrAsdWLR 8d7IpAi36H69e IHdpZHRoPSIxNSUiIHZhb Qtfga8kgT9sNk7+PGNvbC K5jPK3eR5iWiFpIoC5GAj jU105TeXdoTLi Pvevv5fmc9jzvIo7FcPjL JDwnfRvaGekRDH1j2KbXg 67Y8IuvLuqg3RdUnf2za2 9fMSxq4R5cKO4 F9MoXHCxsytadFBonIpnC C5wXQKniymuAZOxsO0dLV XeV5e8AsMaOpT4JYlcR7K qelP4DUAuyMZv FUXkhCSLvY0xshgta8plg icpWuYsRHCzUAu1DIm9CP OmfTqfNeHrZDZ3LhT7JYZ 7tNYokH5vbZhq comsyV9mOeo+DQH2iUEdd FBKCH2uSosujMQ+PHRkIH N5hBarAReeDQXbbP9zEYV tF0i5AhFgMsG8 GUsvT2XctqF0GHLfiAAdN ORjyGPOpP3kusgbo8aipi esPsLiABUvGRj5AGy2FXY saWduOiBsZWZ0 DxC2HDG8hXMsmO1pwUvek vvszV3gQsr+QmlydGggRG G0HUn7L4IdWjz6URNkrMd lIN1ulTKsLDoj Qd8jnXdqvJrfIT4sUUZkm hzbh983MeYmw7qwHFQpuR DgEKmfXTO5H70sz7W1AJL zJVHgVBN3wGP0 pP0owOhorykotHPjwPoty rVbhLlbFJqlRVnpR169ST ElaFmqIjXeHJv1R7CyKiq 4XGWsoCgxKZ0w bJRpMKvmXa4rsNktwBafA Z6hAJPbowakt927TbUhw9 vdDJYxyDOoKGjyOGE4L33 km4V7DMLvCFBe LOW4zLY6eB2czEugydsvr GVmdDsgdmVydGljYWwtYW hjD132NFWoyYpjTwDlxQc 3V2XdJdi7BPWk pVrmSK3beHCyFKvkDn2gb IlquEkpDL6hKMRysarwg8 22HyWge5kqCGTgdEZkRFl rVXG8P93dq4X2 IAZdJEPhHGB9vLW4qJ2hy GlnbjogbGVmdDsgdmVydG fxRVewUXzmU318NMVabNc nPlBhdGllbnQg NUafYSb0Y8ZaIcxzuSG+P W07KGBdFJ39mCXvkHNkz4 xorDw4LvIzEKWdLJF6qGi fSLgkr1VuYRVw O77wqNWth3G8QFAcmBhmi FIvXcJzmWH1yZ1kEDfsmd ezx2hfqkwdMeczg0gper5 6rL17Y19rKXiz ZHRoPSIzMCUiIHZhbGlnb k9kcC1bYv9+NIOizSZ7pN Y4fQ3lTAWfPoL7XVzdW95 9InRvcCIvPjxj w2ksa3lgyVl2EwT1JDLcu zXqhDbcDJP1n2NeSo48R7 9sIHdpZHRoPSIyMCUiIHZ dhSvtyp8elO3f Ii8+ATCjyPH1rIM7rK4fV zQaCiJ9EZdcI520YxOsmU UtGysoC71gJ3OtrFO+PHR nYjy0NENkiHnz YN9rjKMcTJdjZp2gQCT6U gUzRsQlYRagP6PfMGPnoo mtmxnntBX4HQUqYGLuuX3 3Fl3siFruJXTl gEHZqB7vfzdfq2cuvsggO bKzBJHhQZu5NEz3LIJnsN pqKcIzPJJ0AoE0RED2mSP nmT9jyXfdxdsr vN6uT7EyPMYfsrslNd08f H4iVwBuIjX6YRewAao+Tk 2UHNGZWOGFGBXQHFLqM3u MTElBTTwvdGQ+ KYKjZWI6hLsbXPwgSYGrq G2cDWIoK5b2VdUkKkC0NQ yaF6BiKBSbqenjKr89fQ3 yLtEsBhH9QEht A8GiaeW5WUUkkQHsPOwpV OL0B73wh2K9CCYpXXVwGK E2mEV4aD2iwXfvbqnjnEL mdDsgdmVydGlj NRfoWTicK611IZDmrZcfN aY4EuY7XqO2YNL2O9DrQp p9XFKnuZkkOX7jxHBbXKr cRo9olYezvVvw LV1rMAVltsalLWRvqS5hU EMxsHFrhGazVL4xUVBtgx ygz766NaIzYJN8ODXzxDQ hK7KedB6pKeDn DFAjSURhX8IfpFVvTZhfQ 507QFslAzD4CXNbojAqN0 AcTTBgmLjuAsT6e7Z1Bb7 3OCBZZWFyczwv dGQ+XROxVSN5zMknKQcsY OXmcG5nUASgW0u7NfJbRn R5HYesC3XiIDJjrtglCf0 3wN2eWoUtCdE5 XNgpF2ChctW3OSUjjETkR VgoBNR1D96eu5E1XWRsKF IvOTS2uHE9eN3fgZsqjog gbGVmdDsgdmVy uCqgFNmdPJmjH403UHTpt PicQa0UCYK2E2ExThw4WT WvmCkcHF5paJZzCZnzGc8 naYkhmTtiUQ0j RPNzmjibFAQniB5cOTXrl SAwwPvlNY7nOLNydijtw0 42DoLvCIV6TSIaeSHhF0L jwF1nCoCbXDJr KDYnG3FjnHQuXDytJ330G BsoRaR5GWCkojNbW4QoEG TkvBsrEiJ4a7L4Az3NPQv tY8XvX8AhcPve dGQ+BU35tr27Z4RlGkhdD fr6WBQsBTG8pBH5eM4uYA FkQYfrs3W9pJP7W9BhzbV cus5xu7siCACq QUxlI98ouHOsp9W9YVVsh BP3EDTldJdnImOcuW79Bt c+CEXnyBjxz9IdCszrp5h ah7dljKh7KoFg FWQcnyKntCbcOOU2v5DhC b38V26mIVakAVHlGTBcXV FvDRHbmYixhg6qnN5bJm3 +ETHqiYQ3eGP0 pJ8zUvZvNkB2LAskO815N pNcrNAzUmugu6cyf4tasX j4IzTzAFVqgxUzoFxtLHT 1y3CfMe17T0Xz dKcab5JtKwk3gd61uUAov 8O9wHG3K0GtDIIeuowrrM DnpZneTV2xHTMxyghpQQE mrY2wVHTsO7b7 QtUnJxJ7XSchE9ZouiX4T KYozXGqCKSikPVZqX8kog pkv9ylduclRoAiZHJxWOf 3CLx1YGRemCbz ViCoWNP8MvC8YMD3wNSyu Q6pkGhppmpslO7oMdc+UG q2q8mjyPSzEB5zvAF8FA3 9ST71qYQru6K8 wII4F4YtLVWkkxrlhtlal IL3EVCqLZGpzX93Wv5bjL pqCq5wFNNcZCE7SCQjtHU bC7SqjH9wEbIx LVWoWIDeH3GqvEVtOVqeD 750ANtaOsS6JRCaeaHhN2 TlWXKxwAnoSaK4n3N4Xj3 LTR62RY28DH83 uPSus1S6yXO9L4RgETFzq lglgzgnvVQ6QJZuGFWwyB 62Fv4ycUfeIu4aJGKhHHX 9HYWfiIQdJ8Wd pN9gAjJaDLYfGYNfR8Ymx TCsDHpdU330KWahPtL8LA XaitYfZ2VxQTGeeKleUlV 6j4Y9Yf0RAk77 TV40DR77gVXzl0N6pPB7N 1NwOBNphmyzhrdyuID5AA LlHBZpoW43Uw9ljOilKi6 mQBEtRPU0LJUp hNJhL3UjcR3lTwXkOTEuA XYcE8AwhFGbMMpdX233NZ zoYuI2GBUhmhWqF2UtVRP ujMffBlO1a7J9 Ke2YQLhxygy8I9ZqChccv HI+XB50TOJbCK12hJRmeH Plw5gbqWh7YnTuMIEzJJP 9gQijQOczf9Ri ZXI (more content not included)... [facility] HbA1c HPLC (Bld) [Mass fract ion]on 06-24-2023 HbA1c (Bld) [Mass fraction] 6.9 % [facility] No Panel Informationon 06-23 Bedside Glucose 103 [facility] Cholesterol in LDL Calc [Mas s/Vol]on 06-22-2023 Cholesterol in LDL [Mass/Vol] 40.2 mg/dL [facility] Comment on above: <100 mg/dl [id number] 0-129 mg/dl NEAR OR ABOVE XSQSBSI282-521 mg/dl BORDERLINE KOVP999-615 mg/dl HIGH>190 mg/dl VERY HIGH Cholesterol in VLDL Calc [Ma ss/Vol]on 06-22-2023 Cholesterol in VLDL [Mass/Vol] 12.8 mg/dL [facility] Estimated glomerular filtrat ion rate (GFR) non- Americanon 06-22-2023 GFR/1.73 sq M.predicted among non-blacks MDRD (S/P/Bld) [Vol rate/Area] mL/min/{1.73_m2} >=60 [facility] Globulin Calc (S) [Mass/Vol] on 06-22-2023 Globulin (S) [Mass/Vol] 3.6 g/dL F [facility] Laboratory - Chemistry and C hemistry - challengeon 06-22-2023 Albumin [Mass/Vol] 3.7 g/dL 3.4-5.0 [facility] ALP [Catalytic activity/Vol] 48 U/L 46-116 [facility] ALT [Catalytic activity/Vol] 34 U/L 16-63 [facility] AST [Catalytic activity/Vol] 20 U/L 15-37 [facility] Bilirubin [Mass/Vol] 0.5 mg/dL 0.2-1.0 [facility] Calcium [Mass/Vol] 9.2 mg/dL 8.5-10.1 [facility] Chloride [Moles/Vol] 106 mmol/L 98-107 [facility] Cholesterol [Mass/Vol] 102 mg/dL <=200 Fi [facility] Cholesterol in HDL [Mass/Vol] 49 mg/dL 40-60 [facility] Comment on above: > or =60 mg/dl - LOW CARDIOVASCULAR RISK<40 mg/dl - HIGH CARDIOVASCULAR RISK CO2 [Moles/Vol] 26.8 mmol/L 21.0-32.0 [facility] Cobalamin (Vitamin B12) [Mass/Vol] 456.0 pg/mL 193.0-986.0 [facility] Creatinine [Mass/Vol] 1.04 mg/dL 0.70-1.[address] [facility] GFR/1.73 sq M.predicted MDRD (S/P/Bld) [Vol rate/Area] mL/min/{1.73_m2} >=60 [facility] Glucose [Mass/Vol] 82 mg/dL 74-106 [facility] Potassium [Moles/Vol] 4.2 mmol/L 3.5-5.[address] [facility] Protein [Mass/Vol] 7.3 g/dL 6.4-8.2 [facility] Sodium [Moles/Vol] 143 mmol/L 136-145 [facility] Triglyceride [Mass/Vol] 64 mg/dL <=150 F [facility] Urea nitrogen [Mass/Vol] 19.0 mg/dL High 7.0-18.0 [facility] Urea nitrogen/Creatinine [Mass ratio] 18.3 mg/mg [facility] Microalbumin [Mass/volume] i n Urineon 06-22-2023 Albumin DL <= 20 mg/L (U) [Mass/Vol] 3.9 mg/dL <=30.0 [facility] No Panel Informationon 06-21 Urine Random Creatinine 136.06 mg/dL 20.0 0-300.0 0 [facility] Serum or plasma albumin/glob ulin mass ratioon 06-22-2023 Albumin/Globulin [Mass ratio] 1.0 {ratio} [facility] Serum or plasma anion gap de terminationon 06-22-2023 Anion gap [Moles/Vol] 14.4 mmol/L [facility] Serum or plasma total choles terol/high density lipoprotein (HDL) cholesterol mass ceferino 06-22-2023 Cholesterol.total/Celia sterol in HDL [Mass ratio] 2.1 {ratio} [facility] Comment on above: 3.3 - 4.4 LOW RISK4. 4 - 7.1 AVERAGE RISK7.1 - 11.0 MODERATE RISK>11.0 HIGH RISK Urine microalbumin/creatinin e mass ratioon 06-22-2023 Albumin/Creatinine DL <= 20 mg/L (U) [Mass ratio] 28.6 mg/g 0.0-29.9 [facility] Comment on above: NO MICROALBUMINURIA 0-29 MG/GCLINICAL MICROALBUMINURIA 30-300 MG/GMACROALBUMINURIA >300 MG/G Provider Orderson 06-18-2023 Provider Orders [id number]#1. 00[facility] Consent Formson 06-16-2023 Consent Forms [id number]#[id number] [facility] Inpatient Patient Summaryon 06-15-2023 Inpatient Patient Summary [facility] [address] [place] [address] Patient Discharge Instructions Name: JOSEPH ESCALONA : 1945 Patient Address: [address] [place] [address] Primary Care Provider: Name: Dion Griggs After you are discharged if you find you have any questions, please, call [phone] ext [phone] to speak to a nurse. Discharge Diagnosis: 1:BPH with urinary obstruction; Other obstructive and reflux uropathy Prescription Information: If you have been given a prescription for narcotics, seek immediate medical attention if you have any difficulty breathing or any sudden status changes such as confusion and sleepiness. If you or anyone you know is experiencing suicidal thoughts, mental health, alcohol and/or drug addiction problems; contact the [facility] 21/09 Crisis Hotline -Text 4HQXF ht 542628. If you received any narcotics, sedation, or any other medication that causes drowsiness for the next 24 hours, unless otherwise directed: ? Do not drive a car. ? Do not operate machinery such as power tools, lawn mowers, drills, sewing machines, or stoves ? Avoid alcoholic beverages and drugs for allergies, nerves, or sleep ? Do not make important personal or business decisions or sign any legal documents [facility] would like to thank you for allowing us to assist you with your healthcare needs. The following includes patient education materials and information regarding your injury/illness. JOSEPH ESCALONA EDUARDO has been given the following list of follow-up instructions, prescriptions, and patient education materials: Follow-up Instructions With: Address: When: Ton Rhodes MD Medications During the course of your visit, your medication list was updated with the most current information. The details of those changes are reflected below: Medications to Continue That Have Not Changed Other Medications amlodipine-benazepril (amlodipine-benazepri l 5 mg-20 mg oral capsule) 1 cap(s) Oral (given by mouth) every day. aspirin (aspirin 81 mg oral delayed release tablet) 1 tab(s) Oral (given by mouth) every day. cholecalciferol (Vitamin D3 1000 intl units oral capsule) 1 cap(s) Oral (given by mouth) every other day. dulaglutide (Trulicity Pen 1.5 mg/0.5 mL subcutaneous solution) 0.5 Milliliter Subcutaneous (under the skin) every week. glipiZIDE (glipiZIDE 10 mg oral tablet) 1 tab(s) Oral (given by mouth) every day. insulin glargine (insulin glargine 100 units/mL subcutaneous solution) 31 unit(s) Subcutaneous (under the skin) At bedtime. metFORMIN (metFORMIN 1000 mg oral tablet) 1 tab(s) Oral (given by mouth) once a day (in the morning). omega-3 polyunsaturated fatty acids (omega-3 polyunsaturated fatty acids 1000 mg oral capsule) 1 cap(s) Oral (given by mouth) every other day. simvastatin (simvastatin 40 mg oral tablet) 1 tab(s) Oral (given by mouth) once a day (at bedtime). It is important to always keep an active list of medications available so that you can share with other providers and manage your medications appropriately. As an additional courtesy, we are also providing you with your final active medications list that you can keep with you. amlodipine-benazepril (amlodipine-benazepri l 5 mg-20 mg oral capsule) 1 cap(s) Oral (given by mouth) every day. aspirin (aspirin 81 mg oral delayed release tablet) 1 tab(s) Oral (given by mouth) every day. cholecalciferol (Vitamin D3 1000 intl units oral capsule) 1 cap(s) Oral (given by mouth) every other day. dulaglutide (Trulicity Pen 1.5 mg/0.5 mL subcutaneous solution) 0.5 Milliliter Subcutaneous (under the skin) every week. glipiZIDE (glipiZIDE 10 mg oral tablet) 1 tab(s) Oral (given by mouth) every day. insulin glargine (insulin glargine 100 units/mL subcutaneous solution) 31 unit(s) Subcutaneous (under the skin) At bedtime. metFORMIN (metFORMIN 1000 mg oral tablet) 1 tab(s) Oral (given by mouth) once a day (in the morning). omega-3 polyunsaturated fatty acids (omega-3 polyunsaturated fatty acids 1000 mg oral capsule) 1 cap(s) Oral (given by mouth) every other day. simvastatin (simvastatin 40 mg oral tablet) 1 tab(s) Oral (given by mouth) once a day (at bedtime). Take only the medications listed above. Contact your doctor prior to taking any medications not on this list. Diet & Activity Patient Activity Level: Patient Diet: Patient Activity Restrictions: Comment: Patient education materials, if any, will display below Viruses or Bacteria What?s got you sick? Antibiotics only treat bacterial infections. Viral illnesses cannot be treated with antibiotics. When an antibiotic is not prescribed, ask your healthcare professional for tips on how to relieve symptoms and feel better. Usual Cause Illness Viruses Bacteria Antibiotic Needed Cold/Runny Nose NO Bronchitis/Chest Cold (in otherwise healthy ch (more content not included)... Normal [facility] MAGR Intraoperative Recordon 06-15-2023 MAGR Intraoperative Record MAGR Intra-Op Record Summary Primary Physician: Ton Rhodes MD Finalized Date/Time: 06/15/23 13:21:43 Pt. Name: JOSEPH ESCALONA/Sex: 1945 MALE Med Rec #: [id number] Physician: Ton Rhodes MD Financial #: [id number] Pt. Type: D Room/Bed: / Admit/Disch: 06/15/23 11:20:08 - Institution: Case Times MAGR Entry 1 Patient In Room Time 06/15/23 13:12:00 Out Room Time 06/15/23 13:21:00 Anesthesia Start Time 06/15/23 13:17:00 Stop Time 06/15/23 13:19:00 Surgery Start Time 06/15/23 13:17:00 Stop Time 06/15/23 13:19:00 Last Modified By: Parisa Vargas RN 06/15/23 13:21:21 Case Attendance MAGR Entry 1 Entry 2 Entry 3 Case Attendee Ton Rhodes MD, Erica RN Adkins, Brittany E CSFA KIDNEY PULLER Role Performed Surgeon - Primary Garment Fitter Etl Database Developer Time In 06/15/23 13:16:00 06/15/23 13:12:00 06/15/23 13:12:00 Time Out 06/15/23 13:21:00 06/15/23 13:21:00 06/15/23 13:21:00 Procedure Cystoscopy Local Cystoscopy Local Cystoscopy Local Last Modified By: Parisa Vargas RN, Erica RN Baumer, Erica RN 06/15/23 13:21:22 06/15/23 13:21:22 06/15/23 13:21:22 Entry 4 Case Attendee Jerri Reynolds KIDNEY PULLER Role Performed Scrub Personnel Time In 06/15/23 13:12:00 Time Out 06/15/23 13:21:00 Procedure Cystoscopy Local Last Modified By: Parisa Vargas RN 06/15/23 13:21:22 Surgical Procedures MAGR Pre-Care Text: A.20 Verifies operative procedure, surgical site, and laterality Im.150 Develops individualized plan of care Entry 1 Procedure Cystoscopy Local Primary Procedure Yes Primary Surgeon Ton Rhodes MD Surgeon Comment CYSTOSCOPY Start 06/15/23 13:17:00 Stop 06/15/23 13:19:00 Anesthesia Type Local Surgical Service Urology Wound Class Clean-Contaminated Technique Details Closure Technique N/A Entire procedure No was performed via laparoscope or robotic assistance Last Modified By: Parisa Vargas RN 06/15/23 13:20:29 Post-Care Text: O.730 The patient's care is consistent with the individualized perioperative plan of care General Case Data MAGR Pre-Care Text: A.350.1 Classifies surgical wound Entry 1 Case Information OR MAGR OR 02 Case Level Level 2 Wound Class Clean-Contaminated Specialty Urology ASA Class 3 Diagnosis Preop Diagnosis BPH Postop Same As Preop Yes Postop Diagnosis BPH Blunt or No Is the procedure No penetrating injury considered occured prior to Emergent/Urgent? the start of the procedure: Last Modified By: Parisa Vargas RN 06/15/23 11:54:45 Post-Care Text: O.760 Patient receives consistent and comparable care regardless of the setting Time Out MAGR Entry 1 Procedure(s) Cystoscopy Local Time Out Checklist Verifications Team Introductions Yes Confirmed Identity, Yes Completed Procedure, Incision Site, and Consent(s) Presence of Yes Site Verification, Yes Necessary Site Marking, Site Procedural Marking Equipment, Devices, Alternative, and/or and Implants Site Marking Verified Exception in Accordance with Facility Policy Anesthesia Review Antibiotic Received n/a All Anesthesia Case does not involve Within an Concerns Addressed an anesthesia Appropriate Time professional Interval Prior to Surgical Incision Surgeon Review Anticipated Blood Yes Expected Case Yes Loss Risk Addressed Duration Addressed Critical and Yes Non-Routine Steps to be Performed Addressed Nurse Review Equipment Yes Fire Risk Yes Checks/Concerns Assessment Addressed Completed and Interventions Performed Diagnostic and n/a Sterilization n/a Radiological Test Concerns Addressed Results Displayed are Appropriate and Labeled Other Concerns n/a Addressed Time Out Ton Rhodes MD, Time Out Time 06/15/23 13:16:00 Participants Parisa Vargas RN, Angeles Rothman KIDNEY PULLER, Jerri Reynolds KIDNEY PULLER Last Modified By: Parisa Vargas RN 06/15/23 13:16:29 Patient Positioning MAGR Pre-Care Text: A.280 Identifies baseline musculoskeletal status Im.40 Positions the patient Im.80 Applies safety devices Entry 1 Procedure Cystoscopy Local Body Position Supine Left Arm Position Resting at Side Right Arm Position Resting at Side Left Leg Position Extended Right Leg Position Extended Feet Uncrossed? Yes Press Points Checked Yes Additional PATIENT REMAINS ON Positioning Device Pillow Information TRANSPORT CART FOR PROCEDURE. Outcome Met (O.80) Yes Last Modified By: Parisa Vargas RN 06/15/23 11:55:38 Post-Care Text: E.290 Evaluates musculoskeletal status O.80 Patient is free from signs and symptoms of injury related to positioning Skin Prep MAGR Pre-Care Text: A.30 Verifies allergies Im.270 Performs skin preparation Im.270.1 Implements protective measures to prevent skin and tissue injury due to chemical sources Entry 1 Skin Prep Syntegrity Prep Agents (Im.270) 4% Chlorhexidine Prep By Parisa Vargas RN Gluconate Prep Area (Im.270) Perin (more content not included)... [facility] MAGR Preoperative Recordon 0 06-15-2023 MAGR Preoperative Record MAGR Pre-Op Record Summary Primary Physician: Ton Rhodes MD Finalized Date/Time: 06/15/23 13:46:25 Pt. Name: JOSEPH ESCALONA /Sex: 1945 MALE Med Rec #: [id number] Physician: Ton Rhodes MD Financial #: [id number] Pt. Type: D Room/Bed: / Admit/Disch: 06/15/23 11:20:08 - Institution: Pre-Op Case Times MAGR Pre-Care Text: Patient will be optimally prepared for surgery. Patient is free from s/s of injury. Provide information to patient/family related to plan of care. Verify patient allergies. Confirm identity and verify consent before the operative or invasive procedure. Entry 1 Patient Arrival Time 06/15/23 11:25:00 Preop Departure 06/15/23 13:19:00 Last Modified By: Guera Pascual RN 06/15/23 13:46:23 Post-Care Text: Patient is prepared mentally and physically and is ready for surgery. The patient remains free from s/s of injury. Patient/family express understanding of plan of care and participate in decisions affecting his or her perioperrative plan of care. Allergies documented appropriately. Patient identifiers and consent correct. Finalized By: Guera Pascual RN Document Signatures Signed By: Guera Pascual RN 06/15/23 13:46 [facility] Patient Handouton 06-15-2023 Patient Handout [facility] ED Note-Physicianon 05-27-19 ED Note-Physician [id number] .[id number] [facility] Automated epithelial cells c ount in urine sediment (number/area)on 05-24-2023 Epithelial cells Auto (Urine sed) [#/Area] RARE #/LPF NONE/RARE [facility] Automated leukocytes count i n urine sediment (number/area)on 05-24-2023 WBC Auto (Urine sed) [#/Area] 50-75 #/HPF 0-2 [facility] Automated urine specific gra vity by refractometryon 05-24-2023 Specific gravity Refractometry automated (U) [Rel density] >=1.030 1.005-1.025 [facility] Basophils Auto (Bld) [#/Vol] on 05-24-2023 Basophils (Bld) [#/Vol] 0.0 10 3/uL 0.0-0.1 [facility] Basophils/100 WBC Auto (Bld) on 05-24-2023 Basophils/100 WBC (Bld) 0.4 % 0.2-2.0 F [facility] Bilirubin Auto test strip (U ) [Mass/Vol]on 05-24-2023 Bilirubin (U) [Mass/Vol] Negative NEGATIVE [facility] Casts typing in urine sedime nt by light microscopyon 05-24-2023 Casts LM Nom (Urine sed) NONE SEEN #/LPF NONE SEEN [facility] Color Auto (U)on 05-24-2023 Color (U) YELLOW YELLOW [facility] Eosinophils/100 WBC Auto (Bl d)on 05-24-2023 Eosinophils/100 WBC (Bld) 1.1 % 0.9-7.0 [facility] Erythrocyte distribution wid th Auto (RBC) [Ratio]on 05-24-2023 Erythrocyte distribution width (RBC) [Ratio] 13.0 % 11.0-15.0 [facility] Estimated glomerular filtrat ion rate (GFR) non- Americanon 05-24-2023 GFR/1.73 sq M.predicted among non-blacks MDRD (S/P/Bld) [Vol rate/Area] mL/min/{1.73_m2} >=60 [facility] Globulin Calc (S) [Mass/Vol] on 05-24-2023 Globulin (S) [Mass/Vol] 4.0 g/dL F [facility] Hematocrit Auto (Bld) [Volum e fraction]on 05-24-2023 Hematocrit (Bld) [Volume fraction] 40.9 % 42.0-54.0 [facility] Hemoglobin [Mass/volume] in Bloodon 05-24-2023 Hemoglobin (Bld) [Mass/Vol] 13.6 g/dL 14.0-18.0 [facility] Ketones Auto test strip (U) [Mass/Vol]on 05-24-2023 Ketones (U) [Mass/Vol] TRACE mg/dL NEGATIVE F [facility] Laboratory - Chemistry and C hemistry - challengeon 05-24-2023 Albumin [Mass/Vol] 3.6 g/dL 3.4-5.0 [facility] ALP [Catalytic activity/Vol] 63 U/L 46-116 [facility] ALT [Catalytic activity/Vol] 24 U/L 16-63 [facility] AST [Catalytic activity/Vol] 15 U/L 15-37 [facility] Bilirubin [Mass/Vol] 0.6 mg/dL 0.2-1.0 [facility] Calcium [Mass/Vol] 9.0 mg/dL 8.5-10.1 [facility] Chloride [Moles/Vol] 102 mmol/L 98-107 [facility] CO2 [Moles/Vol] 26.5 mmol/L 21.0-32.0 [facility] Creatinine [Mass/Vol] 1.12 mg/dL 0.70-1.[address] [facility] GFR/1.73 sq M.predicted MDRD (S/P/Bld) [Vol rate/Area] mL/min/{1.73_m2} >=60 [facility] Glucose [Mass/Vol] 213 mg/dL 74-106 [facility] Lactate [Moles/Vol] 1.6 mmol/L 0.4-2.0 [facility] Lipase [Catalytic activity/Vol] 23.0 U/L 16.0-77.0 [facility] Potassium [Moles/Vol] 3.6 mmol/L 3.5-5.[address] [facility] Protein [Mass/Vol] 7.6 g/dL 6.4-8.2 [facility] Sodium [Moles/Vol] 140 mmol/L 136-145 [facility] Urea nitrogen [Mass/Vol] 15.0 mg/dL 7.0-18.0 [facility] Urea nitrogen/Creatinine [Mass ratio] 13.4 mg/mg [facility] Laboratory - Hematology and Cell countson 05-24-2023 Immature granulocytes/100 WBC (Bld) 0.6 % 0.0-0.5 [facility] Laboratory - Microbiology an d Antimicrobial susceptibilityon 05-24-2023 S. agalactiae Org specific cx Ql (Vag fld) Not detected NOT DETECTE [facility] Leukocytes [#/volume] correc bethany for nucleated erythrocytes in Blood by Automated counon 05-24-2023 WBC corrected for nucl RBC Auto (Bld) [#/Vol] 10.8 10 3/uL 4.0-11.0 [facility] Lymphocytes Auto (Bld) [#/Vo l]on 05-24-2023 Lymphocytes (Bld) [#/Vol] 0.8 10 3/uL 1.2-3.8 [facility] Lymphocytes/100 WBC Auto (Bl d)on 05-24-2023 Lymphocytes/100 WBC (Bld) 7.4 % 20.5-60.0 [facility] MCH Auto (RBC) [Entitic mass ]on 05-24-2023 MCH (RBC) [Entitic mass] 28.8 pg 25.9-34.0 [facility] MCHC Auto (RBC) [Mass/Vol]on 05-24-2023 MCHC (RBC) [Mass/Vol] 33.3 g/dL 29.9-35.2 [facility] MCV Auto (RBC) [Entitic vol] on 05-24-2023 MCV (RBC) [Entitic vol] 86.5 fL 80.0-94.0 F [facility] Monocytes Auto (Bld) [#/Vol] on 05-24-2023 Monocytes (Bld) [#/Vol] 1.1 10 3/uL 0.3-0.8 [facility] Monocytes/100 WBC Auto (Bld) on 05-24-2023 Monocytes/100 WBC (Bld) 9.9 % 1.7-12.0 F [facility] Mucus LM Ql (Urine sed)on Mucus Ql (Urine sed) MODERATE NONE SEEN [facility] Neutrophils Auto (Bld) [#/Vo l]on 05-24-2023 Neutrophils (Bld) [#/Vol] 8.8 10 3/uL 1.4-6.5 [facility] [place] Neutrophils/100 WBC Auto (Bl d)on 05-24-2023 Neutrophils/100 WBC (Bld) 80.6 % 43.0-75.0 [facility] [place] No Panel Informationon 05-23 Urine Culture Reflexed YES [facility] Urine Microscopic Review YES [facility] [place] A.calcoaceticus-kavya ii cmplx PCR Not detected NOT DETECTE [facility] Bacteroides fragilis (PCR) Not detected NOT DETECTE [facility] Blood Culture Source blood [facility] Jhoana albicans (PCR) Not detected NOT DETECTE [facility] Jhoana auris (PCR) Not detected NOT DETECTE [facility] Jhoana glabrata (PCR) Not detected NOT DETECTE [facility] Jhoana krusei (PCR) Not detected NOT DETECTE [facility] Jhoana parapsilosis (PCR) Not detected NOT DETECTE [facility] Jhoana tropicalis (PCR) Not detected NOT DETECTE [facility] Crypto neoformans/gattii (PCR)(LAB) Not detected NOT DETECTE [facility] CTX-M ESBL (PCR) NOT APPLICABLE NOT DETECTE [facility] Enterobacter cloacae complex (PCR) Not detected NOT DETECTE [facility] Enterobacterales (PCR) Not detected NOT DETECTE [facility] Enterococcus faecalis PCR Not detected NOT DETECTE [facility] Enterococcus faecium PCR Not detected NOT DETECTE [facility] Escherichia coli Result Not detected NOT DETECT E [facility] Haemophilus influenzae DNA Not detected NOT DETECTE [facility] IMP (blaIMP) Carbap Res Gene (PCR) NOT APPLICABLE NOT DETECTE [facility] Klebsiella aerogenes (PCR) Not detected NOT DETECTE [facility] Klebsiella oxytoca (PCR) Not detected NOT DETECTE [facility] Klebsiella pneumoniae group (PCR) Not detected NOT DETECTE [facility] KPC (blaKPC) Detection (PCR) NOT APPLICABLE NOT DETECTE [facility] Listeria monocytogenes (PCR) Not detected NOT DETECTE [facility] MCR-1 Resistance Gene NOT APPLICABLE NOT DETECT E [facility] mecA/C & MREJ Antimicrob Resist Gen NOT APPLICABLE NOT DETECTE [facility] mecA/C-Methicillin Resistance Gene NOT APPLICABLE NOT DETECTE [facility] NDM (blaNDM) Detection (PCR) NOT APPLICABLE NOT DETECTE [facility] Neisseria meningitidis (PCR) Not detected NOT DETECTE [facility] Proteus species (PCR) Not detected NOT DETECTE [facility] Pseudomonas aeruginosa (PCR) Not detected NOT DETECTE [facility] Salmonella spp. (PCR) Not detected NOT DETECTE [facility] Serratia marcescens (PCR) Not detected NOT DETECTE [facility] Staphylococcus aureus (PCR)(LAB) Not detected NOT DETECTE [facility] Staphylococcus epidermidis (PCR) Not detected NOT DETECTE [facility] Staphylococcus lugdunensis (TEM-PCR Not detected NOT DETECTE [facility] Staphylococcus species (PCR) Not detected NOT DETECTE [facility] Stenotroph. maltophilia (PCR) Not detected NOT DETECTE [facility] Streptococcus pneumoniae (PCR) Not detected NOT DETECTE [facility] Streptococcus pyogenes (PCR)(LAB) Not detected NOT DETECTE [facility] Streptococcus species (PCR) Not detected NOT DETECTE [facility] Syn OXA-48-like Carb Res Gene (PCR) NOT APPLICABLE NOT DETECTE [facility] Regina/B-Vancomycin Resistance Genes NOT APPLICABLE NOT DETECTE [facility] VIM (blaVIM) Carbap Res Gene (PCR) NOT APPLICABLE NOT DETECTE [facility] Eosinophils # (Auto) 0.1 10 3/uL 0.0-0.[address] [facility] Immature Granulocyte # (Auto) 0.06 10 3/uL 0.00-0.03 [facility] No Panel InformationOrdered By: Dion Griggs on 05-24-2023 Blood Culture 2 [facility] Blood Culture 1 [facility] Platelet mean volume Auto (B ld) [Entitic vol]on 05-24-2023 Platelet mean volume (Bld) [Entitic vol] 8.8 fL 9.5-13.5 [facility] Platelets Auto (Bld) [#/Vol] on 05-24-2023 Platelets (Bld) [#/Vol] 244 10 3/uL 150-450 [facility] Protein Auto test strip (U) [Mass/Vol]on 05-24-2023 Protein (U) [Mass/Vol] 30 mg/dL NEG/TRACE Fi [facility] RBC Auto (Bld) [#/Vol]on RBC (Bld) [#/Vol] 4.73 10 6/uL 4.70-6.10 [facility] Serum or plasma albumin/glob ulin mass ratioon 05-24-2023 Albumin/Globulin [Mass ratio] 0.9 {ratio} [facility] Serum or plasma anion gap de terminationon 05-24-2023 Anion gap [Moles/Vol] 15.1 mmol/L Fi [facility] Specific gravity Auto test s trip (U) [Rel density]on 05-24-2023 Specific gravity (U) [Rel density] CLEAR CLEAR [facility] Urine bacteria detection by automated methodon 05-24-2023 Bacteria Auto Ql (U) SMALL #/HPF NONE SEEN [facility] Urine glucose measurement by test strip (mass/volume)on 05-24-2023 Glucose Test strip (U) [Mass/Vol] >=1000 mg/dL NEGATIVE [facility] Urine hemoglobin detection b y automated test stripon 05-24-2023 Hemoglobin Auto test strip Ql (U) LARGE NEGATIVE [facility] Urine nitrite detection by a utomated test stripon 05-24-2023 Nitrite Auto test strip Ql (U) TRACE NEGATIVE [facility] Nitrite Auto test strip Ql (U) Negative NEGATIVE [facility] Urine sediment crystal ident ification by light microscopyon 05-24-2023 Crystals LM Nom (Urine sed) None Seen #/HPF None Seen [facility] Urine sediment leukocyte cou nt by microscopy (number/high power field)on 05-24-2023 WBC LM.HPF (Urine sed) [#/Area] 5-10 #/HPF NONE SEEN [facility] Urobilinogen Auto test strip (U) [Mass/Vol]on 05-24-2023 Urobilinogen Qn (U) 0.2 {Raeann'U}/dL 0.2-1.0 [facility] pH Auto test strip (U)on pH (U) 5.5 [pH] 5.0-9.0 [facility] Automated epithelial cells c ount in urine sediment (number/area)on 05-20-2023 Epithelial cells Auto (Urine sed) [#/Area] NONE SEEN #/LPF NONE/RARE [facility] Automated leukocytes count i n urine sediment (number/area)on 05-20-2023 WBC Auto (Urine sed) [#/Area] 5-10 #/HPF 0-2 [facility] Automated urine specific gra vity by refractometryon 05-20-2023 Specific gravity Refractometry automated (U) [Rel density] 1.025 1.005-1.025 [facility] Basophils Auto (Bld) [#/Vol] on 05-20-2023 Basophils (Bld) [#/Vol] 0.1 10 3/uL 0.0-0.1 [facility] Basophils/100 WBC Auto (Bld) on 05-20-2023 Basophils/100 WBC (Bld) 0.6 % 0.2-2.0 F [facility] Bilirubin Auto test strip (U ) [Mass/Vol]on 05-20-2023 Bilirubin (U) [Mass/Vol] Negative NEGATIVE [facility] Casts typing in urine sedime nt by light microscopyon 05-20-2023 Casts LM Nom (Urine sed) NONE SEEN #/LPF NONE SEEN [facility] Color Auto (U)on 05-20-2023 Color (U) YELLOW YELLOW [facility] Eosinophils/100 WBC Auto (Bl d)on 05-20-2023 Eosinophils/100 WBC (Bld) 0.9 % 0.9-7.0 [facility] Erythrocyte distribution wid th Auto (RBC) [Ratio]on 05-20-2023 Erythrocyte distribution width (RBC) [Ratio] 13.2 % 11.0-15.0 [facility] Estimated glomerular filtrat ion rate (GFR) non- Americanon 05-20-2023 GFR/1.73 sq M.predicted among non-blacks MDRD (S/P/Bld) [Vol rate/Area] mL/min/{1.73_m2} >=60 [facility] Globulin Calc (S) [Mass/Vol] on 05-20-2023 Globulin (S) [Mass/Vol] 3.7 g/dL F [facility] Hematocrit Auto (Bld) [Volum e fraction]on 05-20-2023 Hematocrit (Bld) [Volume fraction] 42.2 % 42.0-54.0 [facility] Hemoglobin [Mass/volume] in Bloodon 05-20-2023 Hemoglobin (Bld) [Mass/Vol] 14.2 g/dL 14.0-18.0 [facility] Ketones Auto test strip (U) [Mass/Vol]on 05-20-2023 Ketones (U) [Mass/Vol] TRACE mg/dL NEGATIVE F [facility] Laboratory - Chemistry and C hemistry - challengeon 05-20-2023 Albumin [Mass/Vol] 3.8 g/dL 3.4-5.0 [facility] ALP [Catalytic activity/Vol] 55 U/L 46-116 [facility] ALT [Catalytic activity/Vol] 35 U/L 16-63 [facility] AST [Catalytic activity/Vol] 17 U/L 15-37 [facility] Bilirubin [Mass/Vol] 0.6 mg/dL 0.2-1.0 [facility] Calcium [Mass/Vol] 8.6 mg/dL 8.5-10.1 [facility] Chloride [Moles/Vol] 101 mmol/L 98-107 [facility] CO2 [Moles/Vol] 25.2 mmol/L 21.0-32.0 [facility] Creatinine [Mass/Vol] 1.02 mg/dL 0.70-1.[address] [facility] GFR/1.73 sq M.predicted MDRD (S/P/Bld) [Vol rate/Area] mL/min/{1.73_m2} >=60 [facility] Glucose [Mass/Vol] 228 mg/dL 74-106 [facility] Lactate [Moles/Vol] 2.1 mmol/L 0.4-2.0 [facility] Lipase [Catalytic activity/Vol] 73.0 U/L 16.0-77.0 [facility] Potassium [Moles/Vol] 3.9 mmol/L 3.5-5.[address] [facility] Protein [Mass/Vol] 7.5 g/dL 6.4-8.2 [facility] Sodium [Moles/Vol] 137 mmol/L 136-145 [facility] Urea nitrogen [Mass/Vol] 15.0 mg/dL 7.0-18.0 [facility] Urea nitrogen/Creatinine [Mass ratio] 14.7 mg/mg [facility] Laboratory - Hematology and Cell countson 05-20-2023 Immature granulocytes/100 WBC (Bld) 0.6 % 0.0-0.5 [facility] Laboratory - Microbiology an d Antimicrobial susceptibilityOrdered By: Dion Griggs on 05-20-2023 Bacteria identified Cx Nom (U) [facility] Leukocytes [#/volume] correc bethany for nucleated erythrocytes in Blood by Automated counon 05-20-2023 WBC corrected for nucl RBC Auto (Bld) [#/Vol] 9.9 10 3/uL 4.0-11.0 [facility] Lymphocytes Auto (Bld) [#/Vo l]on 05-20-2023 Lymphocytes (Bld) [#/Vol] 0.9 10 3/uL 1.2-3.8 [facility] Lymphocytes/100 WBC Auto (Bl d)on 05-20-2023 Lymphocytes/100 WBC (Bld) 9.1 % 20.5-60.0 [facility] MCH Auto (RBC) [Entitic mass ]on 05-20-2023 MCH (RBC) [Entitic mass] 29.2 pg 25.9-34.0 [facility] MCHC Auto (RBC) [Mass/Vol]on 05-20-2023 MCHC (RBC) [Mass/Vol] 33.6 g/dL 29.9-35.[address] [facility] MCV Auto (RBC) [Entitic vol] on 05-20-2023 MCV (RBC) [Entitic vol] 86.8 fL 80.0-94.0 [facility] Monocytes Auto (Bld) [#/Vol] on 05-20-2023 Monocytes (Bld) [#/Vol] 0.9 10 3/uL 0.3-0.8 [facility] Monocytes/100 WBC Auto (Bld) on 05-20-2023 Monocytes/100 WBC (Bld) 9.1 % 1.7-12.0 [facility] Mucus LM Ql (Urine sed)on Mucus Ql (Urine sed) NONE SEEN NONE SEEN [facility] Neutrophils Auto (Bld) [#/Vo l]on 05-20-2023 Neutrophils (Bld) [#/Vol] 7.9 10 3/uL 1.4-6.5 [facility] Neutrophils/100 WBC Auto (Bl d)on 05-20-2023 Neutrophils/100 WBC (Bld) 79.7 % 43.0-75.0 [facility] No Panel InformationOrdered By: Dion Griggs on 05-20-2023 Blood Culture 2 [facility] Blood Culture 1 [facility] No Panel Informationon 05-19 Eosinophils # (Auto) 0.1 10 3/uL 0.0-0.[address] [facility] Immature Granulocyte # (Auto) 0.06 10 3/uL 0.00-0.03 [facility] Urine Culture Reflexed YES [facility] Urine Microscopic Review YES [facility] Platelet mean volume Auto (B ld) [Entitic vol]on 05-20-2023 Platelet mean volume (Bld) [Entitic vol] 8.5 fL 9.5-13.5 [facility] Platelets Auto (Bld) [#/Vol] on 05-20-2023 Platelets (Bld) [#/Vol] 276 10 3/uL 150-450 [facility] Protein Auto test strip (U) [Mass/Vol]on 05-20-2023 Protein (U) [Mass/Vol] 30 mg/dL NEG/TRACE Fi [facility] RBC Auto (Bld) [#/Vol]on RBC (Bld) [#/Vol] 4.86 10 6/uL 4.70-6.10 [facility] Serum or plasma albumin/glob ulin mass ratioon 05-20-2023 Albumin/Globulin [Mass ratio] 1.0 {ratio} [facility] Serum or plasma anion gap de terminationon 05-20-2023 Anion gap [Moles/Vol] 14.7 mmol/L [facility] Specific gravity Auto test s trip (U) [Rel density]on 05-20-2023 Specific gravity (U) [Rel density] CLEAR CLEAR [facility] Urine bacteria detection by automated methodon 05-20-2023 Bacteria Auto Ql (U) MODERATE #/HPF NONE SEEN [facility] Urine glucose measurement by test strip (mass/volume)on 05-20-2023 Glucose Test strip (U) [Mass/Vol] >=1000 mg/dL NEGATIVE [facility] Urine hemoglobin detection b y automated test stripon 05-20-2023 Hemoglobin Auto test strip Ql (U) LARGE NEGATIVE [facility] Urine nitrite detection by a utomated test stripon 05-20-2023 Nitrite Auto test strip Ql (U) TRACE NEGATIVE [facility] Nitrite Auto test strip Ql (U) Positive NEGATIVE [facility] Urine sediment crystal ident ification by light microscopyon 05-20-2023 Crystals LM Nom (Urine sed) None Seen #/HPF None Seen [facility] Urine sediment leukocyte cou nt by microscopy (number/high power field)on 05-20-2023 WBC LM.HPF (Urine sed) [#/Area] 5-10 #/HPF NONE SEEN [facility] Urobilinogen Auto test strip (U) [Mass/Vol]on 05-20-2023 Urobilinogen Qn (U) 0.2 {Raeann'U}/dL 0.2-1.0 [facility] pH Auto test strip (U)on pH (U) 5.5 [pH] 5.0-9.0 [facility] ED Note-Physicianon 05-10-19 ED Note-Physician [id number]#1 .00TIFF Normal [facility] Automated epithelial cells c ount in urine sediment (number/area)on 05-04-2023 Epithelial cells Auto (Urine sed) [#/Area] FEW #/LPF NONE/RARE [facility] Automated leukocytes count i n urine sediment (number/area)on 05-04-2023 WBC Auto (Urine sed) [#/Area] 5-10 #/HPF 0-2 [facility] Automated urine sediment negra cium oxalate crystal count by microscopy (number/high powon 05-04-2023 Calcium oxalate crystals LM.HPF (Urine sed) [#/Area] RARE [facility] Automated urine specific gra vity by refractometryon 05-04-2023 Specific gravity Refractometry automated (U) [Rel density] 1.025 1.005-1.025 [facility] Bilirubin Auto test strip (U ) [Mass/Vol]on 05-04-2023 Bilirubin (U) [Mass/Vol] Negative NEGATIVE [facility] Casts typing in urine sedime nt by light microscopyon 05-04-2023 Casts LM Nom (Urine sed) NONE SEEN #/LPF NONE SEEN [facility] Color Auto (U)on 05-04-2023 Color (U) LT. YELLOW YELLOW [facility] Ketones Auto test strip (U) [Mass/Vol]on 05-04-2023 Ketones (U) [Mass/Vol] TRACE mg/dL NEGATIVE F [facility] Mucus LM Ql (Urine sed)on Mucus Ql (Urine sed) NONE SEEN NONE SEEN [facility] Protein Auto test strip (U) [Mass/Vol]on 05-04-2023 Protein (U) [Mass/Vol] 30 mg/dL NEG/TRACE [facility] Specific gravity Auto test s trip (U) [Rel density]on 05-04-2023 Specific gravity (U) [Rel density] CLEAR CLEAR [facility] Urine bacteria detection by automated methodon 05-04-2023 Bacteria Auto Ql (U) MODERATE #/HPF NONE SEEN [facility] Urine glucose measurement by test strip (mass/volume)on 05-04-2023 Glucose Test strip (U) [Mass/Vol] 100 mg/dL NEGATIVE [facility] Urine hemoglobin detection b y automated test stripon 05-04-2023 Hemoglobin Auto test strip Ql (U) LARGE NEGATIVE [facility] Urine nitrite detection by a utomated test stripon 05-04-2023 Nitrite Auto test strip Ql (U) LARGE NEGATIVE [facility] Nitrite Auto test strip Ql (U) Positive NEGATIVE [facility] Urine sediment crystal ident ification by light microscopyon 05-04-2023 Crystals LM Nom (Urine sed) Seen #/HPF None Seen [facility] Urine sediment leukocyte cou nt by microscopy (number/high power field)on 05-04-2023 WBC LM.HPF (Urine sed) [#/Area] 20-50 #/HPF NONE SEEN [facility] Urobilinogen Auto test strip (U) [Mass/Vol]on 05-04-2023 Urobilinogen Qn (U) 0.2 {Raeann'U}/dL 0.2-1.0 [facility] pH Auto test strip (U)on pH (U) 5.5 [pH] 5.0-9.0 [facility] Operative Reporton Operative Report [id number]# 1.00TIFF Normal [facility] Screenson 04-29-2023 Screens [id number]# 1.00TIFF Normal [facility] Screens [id number]# 1.00TIFF Normal [facility] Ambulatory Visit Summaryon 0 04-28-2023 Ambulatory Visit Summary JOSEPH ESCALONA :1945 Visit Date:04/28/2023 Ambulatory Visit Instructions Your Diagnosis Incomplete bladder emptying BPH with urinary obstruction Urethral stricture in male Asymptomatic microscopic hematuria Screening PSA (prostate specific antigen) Simple renal cyst Your Care Team Attending Physician - Paulino GAVIN, Sara Loza Primary Care Physician - DION GRIGGS DO This Is Your Medications List Contact prescribing physician if questions or concerns amlodipine-benazepril (amLODIPine-benazepri l 5 mg-20 mg Cap) aspirin (aspirin 81 [...] Following Appointments Follow Up with Paulino GAVIN, RUBEN Mendez, URO When: Comments: sched urodynamics Where: [address], [place] [address] [phone] Medications What How Much When Instructions Unchanged amlodipine-benazepril (amLODIPine-benazepri l 5 mg-20 mg Cap) Contact prescribing physician [...] or d (more content not included)... Normal [facility] Patient Educationon 04-28- 24 Patient Education Urology Urodynamic Testing Urodynamic tests [...] including vitamins, herbs, eye drops, creams, and hhob-zti-ypcfffc medicines. ? Whether you are or may [...] results be (more content not included)... Normal [facility] Urology Office/Clinic Noteon 04-28-2023 Urology Office/Clinic Note [...] CIC BID and then daily -Schedule urodynamics. Risks/benefits/detail s discussed. 2. BPH with urinary obstruction (N40.1: [...] prostate) P (more content not included)... Normal [facility] Comment on above: Result Comment: Elec tronically Signed By: Sara Bob MD\.br\Date and Time Signed: 04/28/23 11:12 EST\.br\Electronically Co-Signed By: Deborah Torres\.br\Date and Time Co-Signed: 04/28/23 10:44 EST Operative Reporton Operative Report [id number]# 1.00TIFF [facility] Consent for Procedure/Surger yon 03-18-2023 Consent for Procedure/Surgery [id number]#1 .00TIFF [facility] Screenson 02-03-2023 Screens [id number]#1 .00TIFF [facility] Screens [id number]#1 .00TIFF [facility] Ambulatory Visit Summaryon 1 04-05-2022 Ambulatory Visit Summary JOSEPH ESCALONA Nkiita :1945 Visit Date:02/02/2023 Ambulatory Visit Instructions Your Diagnosis BPH with urinary obstruction Incomplete bladder emptying Screening PSA (prostate specific antigen) Asymptomatic microscopic hematuria Simple renal cyst Tests Performed Urnls Dip Stick Auto w/o Microscopy POC 54667 Your Care Team Attending Physician - BROOKS ANTHONY, ANGELI Montiel Primary Care Physician - DION GRIGGS DO This Is Your Medications List Contact prescribing physician if questions or concerns amlodipine-benazepril (amLODIPine-benazepri l 5 mg-20 mg Cap) aspirin (aspirin 81 [...] When: Comments: sched cysto/TRUS Where: [address] [place] [place] [address] [phone] Medications What How Much When Instructions Unchanged amlodipine-benazepril (amLODIPine-benazepri l 5 mg-20 mg Cap) Contact prescribing physician [...] Urnls Dip Stick Auto w/o Microscopy POC 22919 (02/02/2023) Bilirubin Urine Dipstick - Negative Blood Urine Dipstick - Trace-intact Glucose Urine Dipstick - 2+ 500 mg/dl Ketones Urine Dipstick - Negative Leukocytes Urine Dipstick - Negative Nitrite Urine Dipstick - Negative Protein Urine Dipstick - Negative Specific [facility] Urine Dipstick - 1.025 Urine Appearance Urine [...] when yo (more content not included)... Normal [facility] Urology Office/Clinic Noteon 02-02-2023 Urology Office/Clinic Note [...] intervention necessary. Follow-up With When Contact Information ANGELI GUY PA-C, URL [address] [place] [address] [phone] Additional Instructions: sched cysto/TRUS Patient Education Cystoscopy [...] mg oral (more content not included)... Normal [facility] Comment on above: Result Comment: Elec tronically Signed By: ANGELI GUY PA-C\.br\Date and Time Signed: 02/02/23 15:07 EST\.br\Electronically Co-Signed By: Deborah Torres\.br\Date and Time Co-Signed: 02/02/23 14:51 EST A1C HEMOGLOBINon 12-15-2022 HbA1c (Bld) [Mass fraction] 7.0 % [employer] Other Glucose - FINGER STICKon Glucose [Mass/Vol] 119 mg/dL [employer] Other HbA1c (Bld) [Mass fraction]o n 12-15-2022 A1C HEMOGLOBIN [employer] Other Screenson 08-05-2022 Screens [id number]#1 .00CD:127 Normal [facility] Patient Educationon 08-05-19 Patient Education Urology Benign [...] Follow these instructions at home: ? Take rpqj-ddk-owsvhpz and prescription medicines only as told by [...] the medicine (more content not included)... Normal [facility] Urology Office/Clinic Noteon 08-04-2022 Urology Office/Clinic Note [...] E&M of Est. Patient Moderate 30-39 Min 37672 Measure Post Void residual urine and/or bladder capacity by US- non-imaging 37960 Urnls Dip Stick Auto w/o Microscopy POC 52685 2. Incomplete bladder emptying (R39.14: Feeling of incomplete bladder emptying) see #1. PVR: 05/21/20 - 98cc 02/25/21 - 156cc 02/25/22 - 250cc 08/04/22 - 143cc Ordered: E&M of Est. Patient Moderate 30-39 Min 08156 3. Prostatitis, chronic (N41.1: Chronic prostatitis) Hx of chronic prostatitis. Pt denies any infections since prior encounter, feels his infection frequency has lessened after TURP. Ordered: E&M of Est. Patient Moderate 30-39 Min 36210 4. Simple renal cyst (N28.1: Cyst of kidney, acquired) Found on [facility] done 01/2020, left 1.9cm. Follow PRN. Ordered: E&M of Est. Patient Moderate 30-39 Min 54226 5. Asymptomatic microscopic hematuria (R31.21: Asymptomatic microscopic hematuria) Chronic. UA today show trace intact only, no signs of infection. Ordered: E&M of Est. Patient Moderate 30-39 Min 89988 Follow-up With When Contact Information BROOKS ANTHONYANGELI, URL Within 1 year Additional Instructions: Patient [...] 10:00:00) Ketones (more content not included)... Normal [facility] Comment on above: Result Comment: Elec tronically Signed By: BROOKS ANTHONY, ANGELI Tabares.homer\Date and Time Signed: 08/04/22 10:50 EDT Office [...] in adult Healthy Weight Tips; Status:Complete; Done: 30Jun2022 Some eating tips that can help you lose weight.; Status:Complete; Done: 30Jun2022 Essential hypertension, benign Start: amLODIPine Besylate 5 [...] Follow up in 1 year Chief Complaint JOSEPH ESCALONA is being seen for an annual [...] 3. Diabetes, managed by diabetes clinic at [facility], recent A1c 7.2 4. Obesity. Encouraged more [...] symptoms does not point out cardiac cause. Jaleesa Conn MD, [facility] Surgical History Problems History of Appendectomy History [...] Recorded: 30Jun2022 11:20AM Heart Rate96, L Radial Gfenjvuq672, LUE, Sitting Waistpdbj62, LUE, Sitting Height5 ft 6 in Omwuxl198 lb BMI Feipznjpol66.77 kg/m2 BSA Calculated2.01 Tobacco Useb) No PHQ-2 #1. Over the last 2 weeks have you felt down, depressed or hopeless? (If yes, answer PHQ-9 below)No PHQ-2 #2. Over the last 2 weeks have you felt little interest or pleasure (more content not included)... Normal [employer] Tobacco Screening.on 023 Adult depression screening assessment No [facility] [employer] 250 DO Work Phone: Fall risk assessment a) No falls within the last year [facility] [employer] 250 DO Work Phone: Tobacco use status CP b) No [facility] [employer] 250 DO Work Phone: A1C HEMOGLOBINon 06-15-2022 HbA1c (Bld) [Mass fraction] 7.1 % [employer] Other Glucose - FINGER STICKon Glucose [Mass/Vol] 133 mg/dL [employer] Other HbA1c (Bld) [Mass fraction]o n 06-15-2022 A1C HEMOGLOBIN [employer] Other LIPID PROFILEon 06-10-2022 CHOL-HDL RATIO NORM SEE BELOW Normal [facility] Comment on above: Result Comment: 3.3 - 4.4 LOW RISK 4.4 - 7.1 AVERAGE RISK 7.1 - 11.0 MODERATE RISK >11.0 HIGH RISK Performed By: #### C MP, LIPID #### [facility] [address] [address] [address] Kim Roper Cholesterol [Mass/Vol] 132 mg/dL Normal <=200 [facility] Comment on above: Performed By: #### C MP, LIPID #### [facility] [address] [address] [address] Kim Roper Cholesterol in HDL [Mass/Vol] 47 mg/dL Normal 40-60 [facility] Comment on above: Performed By: #### C MP, LIPID #### [facility] [address] [place] [address] Dr. Kim Roper Cholesterol in LDL [Mass/Vol] 63.2 mg/dL Normal [facility] Comment on above: Performed By: #### C MP, LIPID #### [facility] [address] [place] [address] Dr. Kim Roper Cholesterol.total/Celia sterol in HDL [Mass ratio] 2.8 {ratio} Normal [facility] Comment on above: Performed By: #### C MP, LIPID #### [facility] [address] [place] [address] Dr. Kim Roper HDL NORMAL > or = 60 mg/dl - LO W CARDIOVASCULAR RISK <40 mg/dl - HIGH CARDIOVASCULAR RISK Normal [facility] Comment on above: Performed By: #### C MP, LIPID #### [facility] [address] [place] [address] Dr. Kim Roper LDL CALC NORMAL SEE BELOW Normal [facility] Comment on above: Result Comment: <100 mg/dl OPTIMAL 100 - 129 mg/dl NEAR OR ABOVE OPTIMAL 130 - 159 mg/dl BORDERLINE HIGH 160 - 189 mg/dl HIGH >190 mg/dl VERY HIGH Performed By: #### C MP, LIPID #### [facility] [address] [place] [address] Dr. Kim Roper Triglyceride [Mass/Vol] 109 mg/dL Normal <=150 T [facility] Comment on above: Performed By: #### C MP, LIPID #### [facility] [address] [address] [address] Kim Roper VLDL CALC 21.8 mg/dL Normal [facility] Comment on above: Performed By: #### C MP, LIPID #### [facility] [address] [address] [address] Kim Roper MICROALB CREAT RATIO RANDOMo n 06-10-2022 mALB <1.3 Normal <=30.0 [facility] Comment on above: Performed By: #### M CRR #### [facility] [address] [address] [address] Kim Roper URINE CREAT 109.64 mg/dL Normal 20.00-300.0 0 [facility] Comment on above: Performed By: #### M CRR #### [facility] [address] [place] [address] Dr. Kim Roper PROF 14(COMP METB)on 023 Albumin [Mass/Vol] 3.7 g/dL Normal 3.4-5.0 [facility] Comment on above: Performed By: #### C MP, LIPID #### [facility] [address] [address] [address] Kim Roper Albumin/Globulin [Mass ratio] 1.0 {ratio} Normal [facility] Comment on above: Performed By: #### C MP, LIPID #### [facility] [address] [address] [address] Kim Roper ALP [Catalytic activity/Vol] 47 U/L Normal 46-116 [facility] Comment on above: Performed By: #### C MP, LIPID #### [facility] [address] [address] [address] Kim Roper ALT [Catalytic activity/Vol] 40 U/L Normal 16-63 [facility] Comment on above: Performed By: #### C MP, LIPID #### [facility] [address] [address] [address] Kim Roper Anion gap [Moles/Vol] 11.4 mmol/L Normal [facility] Comment on above: Performed By: #### C MP, LIPID #### [facility] [address] [address] [address] Kim Roper AST [Catalytic activity/Vol] 21 U/L Normal 15-37 [facility] Comment on above: Performed By: #### C MP, LIPID #### [facility] [address] [address] [address] Kim Roper Bilirubin [Mass/Vol] 0.5 mg/dL Normal 0.2-1.0 [facility] Comment on above: Performed By: #### C MP, LIPID #### [facility] [address] [address] [address] Kim Roper Calcium [Mass/Vol] 8.9 mg/dL Normal 8.5-10.1 [facility] Comment on above: Performed By: #### C MP, LIPID #### [facility] [address] [place] [address] Dr. Kim Roper Chloride [Moles/Vol] 105 mmol/L Normal 98-107 [facility] Comment on above: Performed By: #### C MP, LIPID #### [facility] [address] [address] [address] Kim Roper CO2 [Moles/Vol] 29.3 mmol/L Normal 21.0-32.0 [facility] Comment on above: Performed By: #### C MP, LIPID #### [facility] [address] [place] [address] Dr. Kim Roper Creatinine [Mass/Vol] 0.88 mg/dL Normal 0.70-1.30 [facility] Comment on above: Performed By: #### C MP, LIPID #### [facility] [address] [place] [address] Dr. Kim Roper EGFR-AF [place]IZ[place] >60 Normal >=60 [facility] Comment on above: Performed By: #### C MP, LIPID #### [facility] [address] [address] [address] Kim Roper EGFR-NON AF [place]IZ[place] >60 Normal >=60 [facility] Comment on above: Performed By: #### C MP, LIPID #### [facility] [address] [address] [address] Kim Roper Globulin (S) [Mass/Vol] 3.6 g/dL Normal [facility] Comment on above: Performed By: #### C MP, LIPID #### [facility] [address] [address] [address] Kim Roper Glucose [Mass/Vol] 160 mg/dL Critically high 74-106 [facility] Comment on above: Performed By: #### C MP, LIPID #### [facility] [address] [address] [address] Kim Roper Potassium [Moles/Vol] 4.7 mmol/L Normal 3.5-5.1 [facility] Comment on above: Performed By: #### C MP, LIPID #### [facility] [address] [address] [address] Kim Roper Protein [Mass/Vol] 7.3 g/dL Normal 6.4-8.2 [facility] Comment on above: Performed By: #### C MP, LIPID #### [facility] [address] [address] [address] Kim Roper Sodium [Moles/Vol] 141 mmol/L Normal 136-145 [facility] Comment on above: Performed By: #### C MP, LIPID #### [facility] [address] [address] [address] Kim Roper Urea nitrogen [Mass/Vol] 11.0 mg/dL Normal 7.0-18.0 [facility] Comment on above: Performed By: #### C MP, LIPID #### [facility] [address] [address] [address] Kim Roper Urea nitrogen/Creatinine [Mass ratio] 12.5 mg/mg Normal [facility] Comment on above: Performed By: #### C MP, LIPID #### [facility] [address] [place] [address] Dr. Kim Roper VITAMIN B12on 06-10-2022 Cobalamin (Vitamin B12) [Mass/Vol] 281.0 pg/mL Normal 193.0-986.0 [facility] Comment on above: Performed By: #### V ITB12 #### [facility] [address] [place], [place] [address] Dr. Kim Roper LIPID PROFILEon 06-20-2021 CHOL-HDL RATIO NORM SEE BELOW Normal [facility] Comment on above: Result Comment: 3.3 - 4.4 LOW RISK 4.4 - 7.1 AVERAGE RISK 7.1 - 11.0 MODERATE RISK >11.0 HIGH RISK Performed By: #### L IPID, CMP #### [facility] [address] [address] [address] Kim Roper Cholesterol [Mass/Vol] 114 mg/dL Normal <=200 [facility] Comment on above: Performed By: #### L IPID, CMP #### [facility] [address] [address] [address] Kim Roper Cholesterol in HDL [Mass/Vol] 42 mg/dL Normal 40-60 [facility] Comment on above: Performed By: #### L IPID, CMP #### [facility] [address] [address] [address] Kim Roper Cholesterol in LDL [Mass/Vol] 45.6 mg/dL Normal [facility] Comment on above: Performed By: #### L IPID, CMP #### [facility] [id number] Kim Roper Cholesterol.total/Celia sterol in HDL [Mass ratio] 2.7 {ratio} Normal [facility] Comment on above: Performed By: #### L IPID, CMP #### [facility] [address] [address] [address] Kim Roper HDL NORMAL > or = 60 mg/dl - LO W CARDIOVASCULAR RISK <40 mg/dl - HIGH CARDIOVASCULAR RISK Normal [facility] Comment on above: Performed By: #### L IPID, CMP #### [facility] [address] [address] [address] Kim Roper LDL CALC NORMAL SEE BELOW Normal [facility] Comment on above: Result Comment: <100 mg/dl OPTIMAL 100 - 129 mg/dl NEAR OR ABOVE OPTIMAL 130 - 159 mg/dl BORDERLINE HIGH 160 - 189 mg/dl HIGH >190 mg/dl VERY HIGH Performed By: #### L IPID, CMP #### [facility] [address] [place] [address] Dr. Kim Roper Triglyceride [Mass/Vol] 132 mg/dL Normal <=150 T [facility] Comment on above: Performed By: #### L IPID, CMP #### [facility] [address] [place] [address] Dr. Kim Roper VLDL CALC 26.4 mg/dL Normal [facility] Comment on above: Performed By: #### L IPID, CMP #### [facility] [address] [place] [address] Dr. Kim Roper MICROALB CREAT RATIO RANDOMo n 06-20-2021 mALB <1.3 Normal <=30.0 [facility] Comment on above: Performed By: #### M CRR #### [facility] [address] [place] [address] Dr. Kim Roper URINE CREAT 126.66 mg/dL Normal 20.00-300.0 0 [facility] Comment on above: Performed By: #### M CRR #### [facility] [address] [place] [address] Dr. Kim Roper PROF 14(COMP METB)on 022 Albumin [Mass/Vol] 3.9 g/dL Normal 3.4-5.0 [facility] Comment on above: Performed By: #### L IPID, CMP #### [facility] [address] [place] [address] Dr. Kim Roper Albumin/Globulin [Mass ratio] 1.2 {ratio} Normal [facility] Comment on above: Performed By: #### L IPID, CMP #### [facility] [address] [place] [address] Dr. Kim Roper ALP [Catalytic activity/Vol] 46 U/L Normal 46-116 [facility] Comment on above: Performed By: #### L IPID, CMP #### [facility] [address] [place] [address] Dr. Kim Roper ALT [Catalytic activity/Vol] 32 U/L Normal 16-63 [facility] Comment on above: Performed By: #### L IPID, CMP #### [facility] [address] [place] [address] Dr. Kim Roper Anion gap [Moles/Vol] 10.9 mmol/L Normal [facility] Comment on above: Performed By: #### L IPID, CMP #### [facility] [address] [place] [address] Dr. Kim Roper AST [Catalytic activity/Vol] 17 U/L Normal 15-37 [facility] Comment on above: Performed By: #### L IPID, CMP #### [facility] [address] [place] [address] Dr. Kim Roper Bilirubin [Mass/Vol] 0.6 mg/dL Normal 0.2-1.3 [facility] Comment on above: Performed By: #### L IPID, CMP #### [facility] [address] [place] [address] Dr. Kim Roper Calcium [Mass/Vol] 8.7 mg/dL Normal 8.5-10.1 [facility] Comment on above: Performed By: #### L IPID, CMP #### [facility] [address] [place] [address] Dr. Kim Roper Chloride [Moles/Vol] 103 mmol/L Normal 98-107 [facility] Comment on above: Performed By: #### L IPID, CMP #### [facility] [address] [place] [address] Dr. Kim Roper CO2 [Moles/Vol] 30.4 mmol/L Critically high 22.0-30.0 [facility] Comment on above: Performed By: #### L IPID, CMP #### [facility] [address] [place] [address] Dr. Kim Roper Creatinine [Mass/Vol] 0.77 mg/dL Normal 0.66-1.25 [facility] Comment on above: Performed By: #### L IPID, CMP #### [facility] [address] [address] [address] Kim Roper EGFR-AF [place]IZ[place] >60 Normal >=60 [facility] Comment on above: Performed By: #### L IPID, CMP #### [facility] [address] [address] [address] Kim Roper EGFR-NON AF [place] >60 Normal >=60 [facility] Comment on above: Performed By: #### L IPID, CMP #### [facility] [address] [address] [address] Kim Roper Globulin (S) [Mass/Vol] 3.3 g/dL Normal T [facility] Comment on above: Performed By: #### L IPID, CMP #### [facility] [address] [place] [address] Dr. Kim Roper Glucose [Mass/Vol] 88 mg/dL Normal 74-106 [facility] Comment on above: Performed By: #### L IPID, CMP #### [facility] [address] [place] [address] Dr. Kim Roper Potassium [Moles/Vol] 4.3 mmol/L Normal 3.4-5.0 [facility] Comment on above: Performed By: #### L IPID, CMP #### [facility] [address] [place] [address] Dr. Kim Roper Protein [Mass/Vol] 7.2 g/dL Normal 6.1-8.2 [facility] Comment on above: Performed By: #### L IPID, CMP #### [facility] [address] [place] [address] Dr. Kim Roper Sodium [Moles/Vol] 140 mmol/L Normal 137-145 [facility] Comment on above: Performed By: #### L IPID, CMP #### [facility] [address] [place] [address] Dr. Kim Roper Urea nitrogen [Mass/Vol] 15.0 mg/dL Normal 7.0-18.0 [facility] Comment on above: Performed By: #### L IPID, CMP #### [facility] [address] [address] [address] Kim Roper Urea nitrogen/Creatinine [Mass ratio] 19.5 mg/mg Normal [facility] Comment on above: Performed By: #### L IPID, CMP #### [facility] [address] [address] [address] Kim Roper VITAMIN B12on 06-20-2021 Cobalamin (Vitamin B12) [Mass/Vol] 430.0 pg/mL Normal 239.0-931.0 [facility] Comment on above: Performed By: #### V ITB12 #### [facility] [address] [address] [address] Kim Roper Tobacco Screening.on 021 Fall risk assessment a) No falls within the last year [facility] [employer] 250 DO Work Phone: Tobacco use status CPHS b) No [facility] DO Work Phone: GLUCOSE, FINGERSTICK-IN OFFI CEon 03-20-2020 Glucose [Mass/Vol] 155 mg/dL High 80-116 [facility] Comment on above: Performed By: #### Everett KILGORE I #### [facility] [address] [place] [address], BASIC METABOLIC PANELon 03-01 Anion gap [Moles/Vol] 14 mmol/L High 5-13 [facility] Comment on above: Performed By: #### DESI DALE #### [facility] [address] [place] [address], Calcium [Mass/Vol] 8.3 mg/dL Low 8.4-10.4 [facility] Comment on above: Performed By: #### DESI DALE #### [facility] [address] [place] [address], Chloride [Moles/Vol] 101 mmol/L Normal 97-111 [facility] Comment on above: Performed By: #### DESI DALE #### [facility] [address] [place] [address], CO2 [Moles/Vol] 24 mmol/L Normal 21-30 [facility] Comment on above: Performed By: #### DESI DALE #### [facility] [address] [place] [address], Creatinine [Mass/Vol] 0.73 mg/dL Low 0.80-1.30 [facility] Comment on above: Performed By: #### Dinesh THAPA CH8 #### [facility] [address] [place] [address], GFR/1.73 sq M.predicted MDRD (S/P/Bld) [Vol rate/Area] 91 mL/min/1.73sqm Normal >=60 [facility] Comment on above: Performed By: #### Dinesh THAPA CH8 #### [facility] [address] [place] [address], Glucose [Mass/Vol] 221 mg/dL High 80-116 [facility] Comment on above: Performed By: #### Dinesh THAPA CH8 #### [facility] [address] [place] [address], Potassium [Moles/Vol] 4.0 mmol/L Normal 3.3-5.3 [facility] Comment on above: Performed By: #### DESI DALE #### [facility] [address] [place] [address], Sodium [Moles/Vol] 135 mmol/L Normal 135-148 [facility] Comment on above: Performed By: #### DESI DALE #### [facility] [address] [place] [address], Urea nitrogen [Mass/Vol] 8 mg/dL Normal 8-22 [facility] Comment on above: Performed By: #### DESI DALE #### [facility] [address] [place] [address], CBC WITH DIFFERENTIALon 03-01 Basophils (Bld) [#/Vol] 0.07 10*3/uL Normal 0.00-0.20 [facility] Comment on above: Performed By: #### T ROP I #### [facility] [address] [place], [place], Basophils/100 WBC (Bld) 0.7 % Normal <=1.9 [facility] Comment on above: Performed By: #### T ROP I #### [facility] [address] [place], [place], Eosinophils (Bld) [#/Vol] 0.02 10*3/uL Normal 0.00-0.70 [facility] Comment on above: Performed By: #### T ROP I #### [facility] [address] [place], [place], Eosinophils/100 WBC (Bld) 0.2 % Normal 0.1-4.0 [facility] Comment on above: Performed By: #### T ROP I #### [facility] [address] [place], [place], Erythrocyte distribution width (RBC) [Ratio] 14.9 % High 11.5-14.5 [facility] Comment on above: Performed By: #### T ROP I #### [facility] [address] [place], [place], Hematocrit (Bld) [Volume fraction] 41.2 % Normal 41.0-53.0 [facility] Comment on above: Performed By: #### T ROP I #### [facility] [address] [place], [place], Hemoglobin (Bld) [Mass/Vol] 14.0 g/dL Normal 13.9-16.3 [facility] Comment on above: Performed By: #### T ROP I #### [facility] [address] [place], [place], Lymphocytes (Bld) [#/Vol] 0.59 10*3/uL Low 1.00-4.80 [facility] Comment on above: Performed By: #### T ROP I #### [facility] [address] [place], [place], Lymphocytes/100 WBC (Bld) 6.1 % Low 24.0-44.0 [facility] Comment on above: Performed By: #### T ROP I #### [facility] [address] [place] [address], MCH (RBC) [Entitic mass] 29.5 pg Normal 26.0-34.0 [facility] Comment on above: Performed By: #### T ROP I #### [facility] [address] [place] [address], MCHC (RBC) [Mass/Vol] 34.1 g/dL Normal 32.0-35.9 [facility] Comment on above: Performed By: #### T ROP I #### [facility] [address] [place] [address], MCV (RBC) [Entitic vol] 87 fL Normal 80-100 T [facility] Comment on above: Performed By: #### T ROP I #### [facility] [address] [place] [address], Monocytes (Bld) [#/Vol] 0.61 10*3/uL Normal 0.20-1.00 [facility] Comment on above: Performed By: #### T ROP I #### [facility] [address] [place] [address], Monocytes (Bld) [#/Vol] 18 10*3/uL Normal <=20 T [facility] Comment on above: Performed By: #### T ROP I #### [facility] [address] [place] [address], Monocytes/100 WBC (Bld) 6.3 % Normal 2.0-11.0 [facility] Comment on above: Performed By: #### T ROP I #### [facility] [address] [place] [address], Neutrophils (Bld) [#/Vol] 8.39 10*3/uL High 1.50-8.00 [facility] Comment on above: Performed By: #### T ROP I #### [facility] [address] [place] [address], Neutrophils/100 WBC (Bld) 86.7 % High 31.0-76.0 [facility] Comment on above: Performed By: #### T ROP I #### [facility] [address] [place], [place], Nucleated RBC (Bld) [#/Vol] 0.0 10*3/uL Normal [facility] Comment on above: Performed By: #### T ROP I #### [facility] [address] [place], [place], Nucleated RBC (Bld) [#/Vol] 0.00 10*3/uL Normal [facility] Comment on above: Performed By: #### T ROP I #### [facility] [address] [place], [place], Platelet mean volume (Bld) [Entitic vol] 6.4 fL Low 7.5-11.2 [facility] Comment on above: Performed By: #### T ROP I #### [facility] [address] [place], [place], Platelets (Bld) [#/Vol] 221 10*3/uL Normal 150-400 [facility] Comment on above: Performed By: #### T ROP I #### [facility] [address] [place], [place], RBC (Bld) [#/Vol] 4.76 10*6/uL Normal 4.50-5.90 [facility] Comment on above: Performed By: #### T ROP I #### [facility] [address] [place], [place], WBC (Bld) [#/Vol] 9.7 10*3/uL Normal 4.5-11.5 [facility] Comment on above: Performed By: #### T ROP I #### [facility] [address] [place], [place], CT HEAD W/O CONTRASTon 03-19 CT HEAD W/O CONTRAST EXAMINATION: CT HEA D W/O CLINICAL HISTORY: fall, posterior lac 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 code 3701.243(E): This information has been [...] agab scrn #### [facility] [address] [place], [place], LACTIC ACIDon 03-19-2020 Lactate [Moles/Vol] 1.5 mmol/L Normal 0.5-2.0 [facility] Comment on above: Performed By: #### L ACT #### [facility] [address] [place], [place], PARTIAL THROMBOPLASTIN TIMEo n 03-19-2020 aPTT Coag (Bld) [Time] 29 s Normal 25-37 Th e [facility] Comment on above: Performed By: #### P T, APTT #### [facility] [address] [place], [place], PROTHROMBIN TIME AND INRon 0 03-19-2020 INR Coag (PPP) [Relative time] 0.96 {INR} Normal 0.90-1.10 [facility] Comment on above: Performed By: #### P T, APTT #### [facility] [address] [place], [place], PT Coag (PPP) [Time] 10.9 s Normal 9.7-12.9 [facility] Comment on above: Performed By: #### P T, APTT #### [facility] [address] [place] [address], TROPONIN Ion 03-19-2020 Troponin I.cardiac [Mass/Vol] ng/mL Normal <0.120 [facility] Comment on above: Result Comment: Rang [...] Performed By: #### T ROP I #### [facility] [address] [place], [place], Troponin I.cardiac [Mass/Vol] ng/mL Normal <0.120 [facility] Comment on above: Result Comment: Rang [...] T ROP I #### [facility] [address] [place] [address], Troponin I.cardiac [Mass/Vol] ng/mL Normal <0.120 [facility] Comment on above: Result Comment: Rang [...] T ROP I #### [facility] [address] [place] [address], TYPE AND SCREENon 03-19-2020 ABO and Rh group Nom (Bld) No Previous Results Normal [facility] Comment on above: Performed By: #### T S #### [facility] [address] [place] [address], ABO and Rh group Nom (Bld) A Positive Normal [facility] Comment on above: Performed By: #### T S #### [facility] [address] [place] [address], ABSC INT Negative Normal [facility] Comment on above: Performed By: #### T S #### [facility] [address] [place] [address], [facility] CARDIAC STRESS/REST INJE CTIONon 08-15-2019 [facility] CARDIAC STRESS/REST INJECTION Patient Name: JOSEPH ESCALONA STUDY: MYOCARDIAL PERFUSION STRESS TEST WITH LEXISCAN Performing facility: [facility], [address] [place] [address], [address], [place] [address] [facility] Provider: Jaleesa Conn MD, FACC PCP: Dr. Zia GRIGGS Supervising provider: Chinedu Mcgarry MD, FACC INDICATION: ASCVD DM Hyperlipidemia HISTORY: Gender: M; Age: 74 y/o ; Height: 167.64 cm; Weight: 92.2693167 kg. CAD; Diabetes; HTN; Abnormal EKG; High Cholesterol; Quit smoking years ago. Cardiac catheterization 2009. COMPARISON: Previous nuclear testing completed 2009 at [facility]. ACCESSION NUMBER(S): [id number]; [id number]; [id number] ORDERING CLINICIAN: JALEESA CONN TECHNIQUE: ONE DAY protocol. Stress injection: [...] Electronically signed by: CLARE FONSECA MD Normal [facility] Vital Signs Date Time Vital Sign Value Performing Clinician Facility 09-06-2023 10: Body height 167.64 cm [facility] 09-06-2023 10: Body mass index (BMI) [Ratio] 32 kg/m2 [facility] 09-06-2023 10:04-0400 Body weight 89.98 kg [facility] 09-06-2023 10:04-0400 Diastolic blood pressure 76 mm[Hg] [facility] 09-06-2023 10:04-0400 Heart rate 86 /min [facility] 09-06-2023 10:04-0400 Respiratory rate 12 /min [facility] 09-06-2023 10:04-0400 Systolic blood pressure 138 mm[Hg] [facility] 06-30-2023 11:18-0400 Diastolic blood pressure 80 mm[Hg] Jaleesa Conn MD Work Phone: [facility] 06-30-2023 11:18-0400 Systolic blood pressure 136 mm[Hg] Jaleesa Conn MD Work Phone: [facility] 06-30-2023 11:00-0400 Body height 167.6 cm Jaleesa Conn MD Work Phone: [facility] 06-30-2023 11:00-0400 Body mass index (BMI) [Ratio] 32.28 kg/m2 Jaleesa Conn MD Work Phone: [facility] 06-30-2023 11:00-0400 Body weight 90.72 kg Jaleesa Conn MD Work Phone: [facility] 06-30-2023 11:00-0400 Heart rate 76 /min Jaleesa Conn MD Work Phone: [facility] 06-24-2023 13:33-0400 Body height 167.64 cm [facility] 06-24-2023 13:33-0400 Body mass index (BMI) [Ratio] 32.3 kg/m2 [facility] 06-24-2023 13:33-0400 Body weight 90.71 kg [facility] 06-24-2023 13:33-0400 Diastolic blood pressure 71 mm[Hg] [facility] 06-24-2023 13:33-0400 Heart rate 78 /min [facility] 06-24-2023 13:33-0400 Respiratory rate 18 /min [facility] 06-24-2023 13:33-0400 SaO2% (BldA) [Mass fraction] 97 % [facility] 06-24-2023 13:33-0400 Systolic blood pressure 142 mm[Hg] [facility] 05-24-2023 11:56-0400 Body height 167.64 cm [facility] 05-24-2023 11:56-0400 Body mass index (BMI) [Ratio] 32.3 kg/m2 [facility] 05-24-2023 11:56-0400 Body weight 90.71 kg [facility] 05-24-2023 11:56-0400 Diastolic blood pressure 83 mm[Hg] [facility] 05-24-2023 11:56-0400 Heart rate 90 /min [facility] 05-24-2023 11:56-0400 Respiratory rate 16 /min [facility] 05-24-2023 11:56-0400 Systolic blood pressure 172 mm[Hg] [facility] 04-28-2023 10:03-0500 Blood Pressure Location Sara Lue [facility] 04-28-2023 10:03-0500 Diastolic blood pressure 82 mm[Hg] Sara Lue [facility] 04-28-2023 10:03-0500 Systolic blood pressure 142 mm[Hg] Sara Lue [facility] 03-17-2023 09:00-0500 Body height 167.64 cm Dion Ball Other [facility] 03-17-2023 09:00-0500 Body mass index (BMI) [Ratio] 33.41 kg/m2 Dion Ball Other [facility] Other 03-17-2023 09:00-0500 Body weight 93.9 kg Dion Ball Other [facility] [employer] Other 03-17-2023 09:00-0500 Body weight 93.89 kg [facility] 03-17-2023 09:00-0500 Diastolic blood pressure 80 mm[Hg] Dion Ball Other [facility] 03-17-2023 09:00-0500 Respiratory rate 12 /min Dion Ball Other [facility] [facility] Other 03-17-2023 09:00-0500 Systolic blood pressure 132 mm[Hg] Dion Ball Other [facility] 02-02-2023 14:05-0500 Blood Pressure Location ANGELI BROOKS [facility] 02-02-2023 14:05-0500 Diastolic blood pressure 74 mm[Hg] ANGELI BROOKS [facility] 02-02-2023 14:05-0500 Heart rate 82 /min ANGELI BROOKS [facility] 02-02-2023 14:05-0500 Respiratory rate 16 /min ANGELI BROOKS [facility] 02-02-2023 14:05-0500 Systolic blood pressure 132 mm[Hg] ANGELI BROOKS [facility] 12-15-2022 13:00-0400 Body height 167.64 cm [employer] Other [facility] Other 12-15-2022 13:00-0400 Body mass index (BMI) [Ratio] 33.23 kg/m2 [employer] Other [facility] [employer] Other 12-15-2022 13:00-0400 Body weight 93.4 kg Tondra Mapus Other [facility] Other 12-15-2022 13:00-0400 Diastolic blood pressure 87 mm[Hg] Tondra Mapus Other [facility] Other 12-15-2022 13:00-0400 Respiratory rate 18 /min Tondra Mapus Other [facility] Other 12-15-2022 13:00-0400 SaO2% (BldA) [Mass fraction] 97 % Tondra Mapus Other [facility] Other 12-15-2022 13:00-0400 Systolic blood pressure 154 mm[Hg] Tondra Mapus Other [facility] Other 09-02-2022 10:30-0400 Body height 167.64 cm Dion Ball Other [facility] Other 09-02-2022 10:30-0400 Body mass index (BMI) [Ratio] 32.89 kg/m2 Dion Ball Other [facility] Other 09-02-2022 10:30-0400 Body weight 92.44 kg Dion Ball Other [facility] Other 09-02-2022 10:30-0400 Diastolic blood pressure 80 mm[Hg] Dion Ball Other [facility] Other 09-02-2022 10:30-0400 Respiratory rate 12 /min Dion Ball Other [facility] Other 09-02-2022 10:30-0400 Systolic blood pressure 130 mm[Hg] Dion Ball Other [facility] Other 08-20-2022 10:45-0400 Body height 167.64 cm Dion Ball Other [facility] Other 08-20-2022 10:45-0400 Body mass index (BMI) [Ratio] 32.47 kg/m2 Dion Ball Other [facility] Other 08-20-2022 10:45-0400 Body weight 91.26 kg Dion Ball Other [facility] Other 08-20-2022 10:45-0400 Diastolic blood pressure 77 mm[Hg] Dion Ball Other [facility] Other 08-20-2022 10:45-0400 Respiratory rate 12 /min Dion Ball Other [facility] Other 08-20-2022 10:45-0400 Systolic blood pressure 150 mm[Hg] Dion Ball Other [facility] Other 08-04-2022 10:02-0400 Blood Pressure Location ANGELI BROOKS [facility] 08-04-2022 10:02-0400 Diastolic blood pressure 78 mm[Hg] ANGELI BROOKS [facility] 08-04-2022 10:02-0400 Heart rate 68 /min ANGELI BROOKS [facility] 08-04-2022 10:02-0400 Respiratory rate 16 /min ANGELI BROOKS [facility] 08-04-2022 10:02-0400 Systolic blood pressure 130 mm[Hg] ANGELI GUY [facility] 07-23-2022 11:09-0400 Diastolic blood pressure 78 mm[Hg] Dion E Ball Work Phone: [facility] [address] DO Work Phone: 07-23-2022 11:09-0400 Systolic blood pressure 138 mm[Hg] Dion E Ball Work Phone: [facility] [address] DO Work Phone: 07-23-2022 11:06-0400 Body height 167.64 cm Dion E Ball Work Phone: [facility] [address] DO Work Phone: 07-23-2022 11:06-0400 Body mass index (BMI) [Ratio] 32.77 kg/m2 Dion E Ball Work Phone: [facility] [address] DO Work Phone: 07-23-2022 11:06-0400 Body surface area Derived from formula 2.01 m2 Dion E Ball Work Phone: [facility] [address] DO Work Phone: 07-23-2022 11:06-0400 Body weight 92.08 kg Dion E Ball Work Phone: [facility] [address] DO Work Phone: 07-23-2022 11:06-0400 Diastolic blood pressure 80 mm[Hg] Dion E Ball Work Phone: [facility] DO Work Phone: 07-23-2022 11:06-0400 Heart rate 90 /min Dion E Ball Work Phone: [facility] DO Work Phone: 07-23-2022 11:06-0400 Systolic blood pressure 140 mm[Hg] Dion Montiel Ball Work Phone: [facility] [employer] 250 DO Work Phone: 06-30-2022 11:20-0400 Body height 167.64 cm Dion Montiel Ball Work Phone: [facility] [employer] [address] DO Work Phone: 06-30-2022 11:20-0400 Body mass index (BMI) [Ratio] 32.77 kg/m2 Dion Montiel Ball Work Phone: [facility] [employer] 250 DO Work Phone: 06-30-2022 11:20-0400 Body surface area Derived from formula 2.01 m2 Dion Montiel Ball Work Phone: [facility] [employer] [address] DO Work Phone: 06-30-2022 11:20-0400 Body weight 92.08 kg Dion Montiel Ball Work Phone: [facility] [employer] [address] DO Work Phone: 06-30-2022 11:20-0400 Diastolic blood pressure 88 mm[Hg] Dion Montiel Ball Work Phone: [facility] [employer] [address] DO Work Phone: 06-30-2022 11:20-0400 Heart rate 96 /min Dion Montiel Ball Work Phone: [facility] [employer] [address] DO Work Phone: 06-30-2022 11:20-0400 Systolic blood pressure 158 mm[Hg] Dion Montiel Ball Work Phone: [facility] [employer] [address] DO Work Phone: 06-15-2022 14:30-0400 Body height 167.64 cm Ynes Jain Other [facility] Other 06-15-2022 14:30-0400 Body mass index (BMI) [Ratio] 33.18 kg/m2 Tondra Mapus Other [facility] Other 06-15-2022 14:30-0400 Body weight 93.26 kg Tondra Mapus Other [facility] Other 06-15-2022 14:30-0400 Diastolic blood pressure 85 mm[Hg] Tondra Mapus Other [facility] Other 06-15-2022 14:30-0400 Respiratory rate 18 /min Tondra Mapus Other [facility] Other 06-15-2022 14:30-0400 SaO2% (BldA) [Mass fraction] 95 % Tondra Mapus Other [facility] Other 06-15-2022 14:30-0400 Systolic blood pressure 151 mm[Hg] Tondra Mapus Other [facility] Other 02-25-2022 09:34-0500 Blood Pressure Location ANGELITHERESA GUY [facility] 02-25-2022 09:34-0500 Diastolic blood pressure 82 mm[Hg] ANGELI BROOKS [facility] 02-25-2022 09:34-0500 Heart rate 68 /min ANGELI BROOKS [facility] 02-25-2022 09:34-0500 Respiratory rate 16 /min ANGELI BROOKS [facility] 02-25-2022 09:34-0500 Systolic blood pressure 138 mm[Hg] ANGELI GUY [facility] 08-26-2021 10:43-0400 Blood Pressure Location Kailee Mckinney Jr. [facility] 08-26-2021 10:43-0400 Diastolic blood pressure 76 mm[Hg] Kailee Mckinney Jr. [facility] 08-26-2021 10:43-0400 Heart rate 85 /min Kailee Mckinney Jr. [facility] 08-26-2021 10:43-0400 Respiratory rate 16 /min Kailee Mckinney Jr. [facility] 08-26-2021 10:43-0400 Systolic blood pressure 138 mm[Hg] Kailee Mckinney Jr. [facility] 01-06-2021 14:59-0500 Body height 167.64 cm Dion Griggs Work Phone: [facility] DO Work Phone: 01-06-2021 14:59-0500 Body mass index (BMI) [Ratio] 32.6 kg/m2 Dion Griggs Work Phone: [facility] DO Work Phone: 01-06-2021 14:59-0500 Body surface area Derived from formula 2.01 m2 Dion Griggs Work Phone: [facility] DO Work Phone: 01-06-2021 14:59-0500 Body weight 91.63 kg Dion Griggs Work Phone: [facility] DO Work Phone: 01-06-2021 14:59-0500 Diastolic blood pressure 76 mm[Hg] Dion Griggs Work Phone: [facility] DO Work Phone: 01-06-2021 14:59-0500 Heart rate 86 /min Dion Griggs Work Phone: [facility] DO Work Phone: 01-06-2021 14:59-0500 Systolic blood pressure 128 mm[Hg] Dion Griggs Work Phone: [facility] DO Work Phone: Encounters Encounter Date Encounter Type Care Provider Facility Start: 09-06-2023 End: 09-06-2023 ambulatory [facility] Work Phone: Start: 09-06-2023 End: 09-06-2023 Patient encounter procedure [facility] Work Phone: Start: 07-13-2023 End: 07-13-2023 Patient encounter procedure [facility] Work Phone: Start: 06-30-2023 End: 06-30-2023 Office outpatient visit 25 minutes Jaleesa Conn MD Work Phone: [facility] Comment on above: Essential hypertensi on, benign (Primary Dx); ASCVD (arteriosclerotic cardiovascular disease); Mixed hyperlipidemia; Type 2 diabetes mellitus without complication, with long-term current use of insulin (Multi); Former smoker; BMI 32.0-32.9,adult; Obstructive sleep apnea syndrome; Urinary retention Start: 06-30-2023 End: 06-30-2023 ambulatory JALEESA CONN [facility] Start: 06-29-2023 Non-patient / Non-visit [facility] Work Phone: Start: 06-24-2023 End: 06-24-2023 ambulatory [facility] Work Phone: Start: 06-24-2023 End: 06-24-2023 Patient encounter procedure [facility] Work Phone: Start: 06-22-2023 Non-patient / Non-visit [facility] Work Phone: Start: 06-15-2023 End: 06-15-2023 ambulatory Ton Rhodes Facility:[facility] Start: 06-08-2023 ambulatory ANGELI GUY Facili ty:[facility] Start: 05-24-2023 End: 05-24-2023 ambulatory [facility] Work Phone: Start: 05-24-2023 End: 05-24-2023 Patient encounter procedure [facility] Work Phone: Start: 05-20-2023 Non-patient / Non-visit [facility] Work Phone: Start: 05-10-2023 End: 06-22-2023 Pre-admission assessment Renato MCCABE [facility] Start: 05-05-2023 ambulatory ANGELI GUY Facili ty:[facility] Start: 05-04-2023 Non-patient / Non-visit [facility] Work Phone: Start: 04-28-2023 End: 04-29-2023 ambulatory Sara oBb Facility:[facility] Start: 04-28-2023 End: 04-28-2023 Patient encounter procedure Sara Bob [facility] Start: 03-26-2023 End: 03-27-2023 ambulatory Sara Bob Facility:[facility] Start: 03-26-2023 End: 03-26-2023 Patient encounter procedure Sara Bob [facility] Start: 03-25-2023 End: 03-26-2023 ambulatory Sara Bob Facility:[id number] Start: 03-17-2023 End: 03-17-2023 ambulatory Dion Griggs Other [facility] Other Start: 03-17-2023 Office outpatient vi sit 25 minutes Dion Griggs [facility] Start: 03-17-2023 End: 03-17-2023 Patient encounter procedure [facility] Start: 03-16-2023 End: 03-16-2023 ambulatory Tondra Mapus Other [facility] Other Start: 03-16-2023 Telephone encounter Tondra Danikaus [facility] Start: 02-02-2023 End: 02-03-2023 ambulatory ANGELI GUY Facility:[facility] Start: 02-02-2023 End: 02-02-2023 Patient encounter procedure [facility] Start: 12-15-2022 (DM) Diabetes Tondra Mapus [facility] Start: 12-15-2022 End: 12-16-2022 ambulatory Tondra K Mapus [facility] Other Start: 12-02-2022 End: 12-02-2022 ambulatory Dion Griggs Other [facility] Other Start: 12-02-2022 Nursing evaluation o f patient and report Dion Griggs [facility] Start: 09-02-2022 End: 09-02-2022 ambulatory Dion Griggs Other [facility] Other Start: 09-02-2022 Patient encounter procedure Dion Griggs [facility] Start: 08-20-2022 End: 08-20-2022 ambulatory Dion Griggs Other [facility] Other Start: 08-20-2022 Office outpatient vi sit 15 minutes Dion Griggs [facility] Start: 08-04-2022 End: 08-05-2022 ambulatory ANGELI BECKWITHRY Facility:[facility] Start: 08-04-2022 End: 08-04-2022 Patient encounter procedure ANGELI GUY [facility] Start: 07-23-2022 Office outpatient vi sit 10 minutes Dion Montiel Gabriel Work Phone: [facility] 250 DO Work Phone: Start: 06-30-2022 Telephone encounter Dion Griggs [facility] Start: 06-30-2022 Office outpatient vi sit 25 minutes Dion Griggs Work Phone: [facility] 250 DO Work Phone: Start: 06-30-2022 End: 06-30-2022 ambulatory Lazcano Conn [facility] [facility] Other Start: 06-15-2022 (DM) Diabetes Tondra Mapus [facility] Start: 06-15-2022 End: 06-15-2022 ambulatory Tondra Mapus Other [facility] Other Start: 06-10-2022 End: 06-11-2022 ambulatory TONDRA MAPUS Facility: Start: 05-04-2022 Rx Renewal Dion szymanski Work Phone: [facility] 250 DO Work Phone: Start: 04-27-2022 End: 04-27-2022 ambulatory Tondra Mapus Other [facility] Other Start: 04-27-2022 Telephone encounter Tondra Mapus [facility] Start: 02-25-2022 End: 02-25-2022 Patient encounter procedure ANGELITHERESA GUY [facility] Start: 02-06-2022 End: 02-07-[address] KAILEE Valente Facility:[facility] Start: 09-03-2021 Adult health examination Noam radha Griggs Other [facility] Other Start: 09-01-2021 Pre-procedure evalua tion check Dion Griggs Other [facility] Other Start: 08-26-2021 End: 08-26-2021 Patient encounter procedure Kailee Mckinney Jr. [facility] Start: 06-23-2021 End: 06-23-2021 ambulatory Tondra Mapus Other [facility] Other Start: 06-23-2021 Telephone encounter Tondra Mapus [facility] Start: 06-20-2021 End: 06-21-2021 ambulatory TONDRA MAPUS Facility:[facility] Start: 03-24-2021 Rx Renewal Dion szymanski Work Phone: [facility] 250 DO Work Phone: Start: 03-18-2021 End: 03-18-2021 ambulatory Tondra Mapus Other [facility] Other Start: 03-18-2021 Telephone encounter Tondra Mapus [facility] Start: 01-06-2021 Office outpatient vi sit 25 minutes [facility] Griggs [facility] Work Phone: Start: 03-19-2020 End: 03-20-2020 Evaluation and management of inpatient CACHORRO ROBLERO Facility:[facility] Start: 03-19-2020 Patient encounter procedure UNKNOWN PROVIDER Facility:[facility] Procedures Date Procedure Procedure Detail Performing Clinician Start: 06-29-2023 Bacteria identified in Urine by Culture Start: 05-24-2023 Blood Culture 1 Start: 05-24-2023 Blood Culture 2 Start: 05-20-2023 Bacteria identified in Urine by Culture Start: 05-20-2023 Blood Culture 1 Start: 05-20-2023 Blood Culture 2 Start: 02-06-2022 PSA screening YNES BRAN Comment on above: Performed By: #### P SAD #### [facility] [address] [place] [address] Dr. Kim Roper Start: 05-01-2020 Transurethral prostatectomy Kailee Mckinney Jr. Start: 03-18-2020 Cystoscopy Kailee hernandez Jr. Start: 02-27-2015 Screening for malign ant neoplasm of colon Dion Ball Other Start: 11-07-2013 Screening for malign ant neoplasm of prostate Dion Ball Other Start: 03-01-2010 Total colonoscopy Noam min E Ball Work Phone: Appendectomy Dion E Ball Work Phone: Appendectomy Kailee Valente Arthroplasty of knee Kailee Mckinney Jr. Arthroscopy of knee Dion E Ball Work Phone: Colonoscopy Kailee Valente Depression screening Benjami n Ball Other Screening for malign ant neoplasm of colon Dion Ball Other Screening for malign ant neoplasm of prostate Dion Ball Other Plan of Treatment Date Care Activity Detail Author Start: 03-19-2030 DTaP/Tdap/Td Vaccine s (3 - Td or Tdap) DTaP/Tdap/Td Vaccines (3 - Td or Tdap) [facility] Start: 04-12-2024 End: 04-12-2024 Patient encounter procedure 04/12/2024 11:20 AM EST Office Visit [facility] [address] [place] [address] Jaleesa Conn MD [address] [place] [address] [facility] Start: 10-31-2023 Influenza vaccination Influenz a Vaccine (Season Ended) [facility] Start: 06-30-2023 FUV, Provider: Jaleesa Conn, Status: Pen, Time: 11:00 AM FUV, Provider: Jaleesa Conn, Status: Pen, Time: 11:00 AM [facility] 250 DO Work Phone: Start: 05-20-2023 Blood Culture 1 Blood Culture 1 [facility] Start: 05-20-2023 Blood Culture 2 Blood Culture 2 [facility] Start: 10-30-2022 COVID-19 Vaccine ( season) COVID-19 Vaccine ( season) [facility] Start: 08-15-2022 Glaucoma screening Diabetes: R etinopathy Screening [facility] Start: 07-23-2022 NURSEVST, Provider: EMILY BERGMAN THIN FILM TECHNICIAN 1,[id number], Status: Pen, Time: 11:00 AM NURSEVST, Provider: EMILY BERGMAN THIN FILM TECHNICIAN 1,[id number], Status: Pen, Time: 11:00 AM [facility] 250 DO Work Phone: Start: 06-30-2022 FUV, Provider: Jaleesa Conn, Status: Pen, Time: 11:20 AM FUV, Provider: Jaleesa Conn, Status: Pen, Time: 11:20 AM [facility] Work Phone: Start: 07-01-2021 FUV, Provider: Jaleesa Conn, Status: Pen, Time: 1:00 PM FUV, Provider: Jaleesa Conn, Status: Pen, Time: 1:00 PM [facility] Work Phone: Start: 2004 RSV patient s and/or patients aged 60+ years (1 - 1-dose 60+ series) RSV patients and/or patients aged 60+ years (1 - 1-dose 60+ series) [facility] Start: 1994 Zoster Vaccines (1 o f 2) Zoster Vaccines (1 of 2) [facility] Start: 07-15-1963 Urine screening for protein Diabetes: Urine Protein Screening [facility] Start: 1962 Hepatitis C screening Hepatitis C Sc reening [facility] Start: 1954 Diabetic foot examination Diabetes: Foot Exam [facility] Start: 1944 Hemoglobin A1c measurement Diabetes: Hemoglobin A1C [facility] Start: 1944 Lipid panel Lipid Panel [facility] Start: 1945 Medicare Annual Wellness Visit Medicare Annual Wellness Visit (AWV) [facility] Patient Education Diabetes in [place] a[place] Adults [facility] Work Phone: [facility] Immunizations Immunization Date Immunization Notes Care Provider Mark manzanares 12-02-2022 influenza, high dose seasonal, preservative-free Dion Griggs Other [employer] [facility] [employer] Other 12-02-2022 influenza virus vaccine, unspecified formulation [facility] 12-10-2021 Fluad Quadrivalent 0 .5 ML Intramuscular Prefilled Syringe Dion Griggs Work Phone: [facility] [employer] 250 DO Work Phone: 12-10-2021 influenza virus vaccine, split virus (incl. purified surface antigen) Dion Griggs Other [employer] Other 12-10-2021 influenza virus vaccine, unspecified formulation ANGELI GUY [facility] 12-10-2021 influenza, high dose seasonal, preservative-free Dion Griggs Other [facility] [employer] Other 12-06-2020 influenza virus vaccine, unspecified formulation ANGELI GUY [facility] 12-06-2020 influenza, high dose seasonal, preservative-free Dion Griggs Work Phone: [facility] Comment on above: Series: 12-05-2020 influenza virus vaccine, split virus (incl. purified surface antigen) Dion Griggs Other [facility] [employer] Other 12-05-2020 influenza virus vaccine, unspecified formulation [facility] 05-06-2020 Josephine COVID-19 Vaccine 0.5 ML Intramuscular Suspension Dion Griggs Work Phone: [facility] Comment on above: Series: 03-19-2020 diphtheria, tetanus toxoids and pertussis vaccine Dion Griggs Work Phone: [facility] 03-19-2020 tetanus toxoid, redu noman diphtheria toxoid, and acellular pertussis vaccine, adsorbed Jaleesa Conn MD Work Phone: [facility] Work Phone: 12-05-2019 influenza virus vaccine, split virus (incl. purified surface antigen) Dion Griggs Other [facility] [employer] Other 12-05-2019 influenza virus vaccine, unspecified formulation [facility] 11-30-2019 influenza virus vaccine, unspecified formulation ANGELI GUY [facility] 11-30-2019 influenza, high dose seasonal, preservative-free Dion Griggs Work Phone: [facility] 250 DO Work Phone: 10-31-2019 influenza virus vaccine, unspecified formulation Dion Griggs Work Phone: [facility] 11-23-2018 influenza virus vaccine, split virus (incl. purified surface antigen) Dion Griggs Other [facility] [employer] Other 11-23-2018 influenza virus vaccine, unspecified formulation ANGELI GUY [facility] 11-23-2018 influenza, injectabl e, quadrivalent, preservative free Dion E Gabriel [facility] DO Work Phone: 10-30-2018 influenza, high dose seasonal, preservative-free Dion E Gabriel Work Phone: [facility] DO Work Phone: 04-01-2015 pneumococcal conjuga te vaccine, 13 valent Dion E Gabriel Work Phone: [facility] 03-01-2015 pneumococcal polysaccharide vaccine, 23 valent Dion E Gabriel Work Phone: [facility] Comment on above: Series: 02-27-2015 pneumococcal conjuga te vaccine, 13 valent Dion Griggs Other [facility] 02-27-2015 pneumococcal Conjuga te, unspecified formulation; 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: [Need for prophylactic vaccination against Streptococcus pneumoniae (pneumococcus)] Dion Griggs Other [facility] [employer] Other 03-01-2010 influenza virus vaccine, unspecified formulation Dion E Gabriel Work Phone: [facility] [employer] [facility] DO Work Phone: 03-01-2006 pneumococcal polysaccharide vaccine, 23 valent Dion E Ball Work Phone: [facility] DO Work Phone: influenza virus vaccine, unspecified formulation Dion Griggs Work Phone: [facility] 250 DO Work Phone: Comment on above: 2009 Payers Date Payer Category Payer Unknown 2017 Self-pay [id number] 2017 Unknown [id number] 2009 Medicare MEDICARE MEDICAR E RAILROAD [id number] 2009-Present [address] [place] [address] [id number] 1959 Medicare [id number] 1959 Unknown [id number] 1944 Unknown [id number] [id number] 1944 Unknown [id number] [id number] 1944 Unknown [id number] 2.16.840.1.704874.3.579.2.593 1944 Unknown [id number] 2.16.840.1.710074.3.579.2.593 1944 Unknown [id number] 2.16.840.1.966270.3.579.2.593 1944 Unknown [id number] 2.16.840.1.057164.3.579.2.356 1944 Unknown [id number] 2.16.840.1.094718.3.579.2.718 1944 Unknown [id number] 2.16.840.1.844857.3.579.2.727 1944 Unknown [id number] 2.16.840.1.647643.3.579.2.727 1944 Unknown [id number] 2.16.840.1.645578.3.579.2.72 1944 Unknown [id number] 2.16.840.1.558727.3.579.2.72 1944 Unknown [id number] 2.16.840.1.472167.3.579.2. 1944 Unknown [id number] 2.16.840.1.450422.3.579.2. 1944 Unknown [id number] 2.16.840.1.302001.3.579.2.7 1944 Unknown [id number] [id number] Unknown [id number] Social History Date Type Detail Facility Start: 06-30-2023 No illicit drug use No illicit drug use [facility] 250 DO Work Phone: Comment on above: 3 cups coffee daily, occasionl diet soda; 1 beer a month; Start: 06-30-2023 Sex Assigned At N [facility] [employer] Other Start: 08-26-2021 End: 06-24-2023 Tobacco smoking status Ex-smoker (finding) [facility] Start: 04-28-2023 Tobacco smoking status Never [facility] Start: 1945 Sex Assigned At Male F [facility] Start: 03-01-1972 History of tobacco use Current smoke r [facility] Work Phone: Start: 03-01-1972 History of tobacco use Cigarette Smo ker [facility] Work Phone: Start: 06-30-2023 Tobacco use and exposure Smokeless tobacco non-user [facility] Work Phone: Start: 06-30-2023 Alcoholic beverage intake Current drinker of alcohol (finding) [facility] Work Phone: Start: 06-30-2023 Alcohol Comment rarely [facility] Work Phone: Start: 1945 Sex assigned at Not on file [facility] Work Phone: Start: 06-20-2023 End: 06-30-2023 Exposure to SARS-CoV-2 (event) Not sure [facility] Medical Equipment Procedure Code Equipment Code Equipment Origin al Text Equipment Identifier Dates Start: 04-23-2014 Functional Status Date Assessment Result Facility 04-28-2023 Functional Status N/A [facility] 02-02-2023 Functional Status N/A [facility] 08-04-2022 Functional Status N/A [facility] 02-25-2022 Functional Status N/A [facility] 08-26-2021 Functional Status N/A [facility] Clinical Notes 08-26-2021 to 06-30-2023 Jaleesa Conn MD - 06/30/2023 11:00 AM EDTPatient Instructions Note Date & Type Note Facility 06-30-2023 History of Present illness Narrative Subjective Joseph Escalona is a 77 y.o. male Chief Complaint Annual Exam HPI Patient is in the office for follow-up for the problems noted below. He came with his . He developed urinary problems with infections and eventually has to utilize self-catheterization to empty his bladder and that will be permanently. His pressure is under control, his weight is coming down. He maintains active lifestyle. His lipid profile was excellent. Review of system outside of his urinary symptoms was entirely normal and his physical examination is only remarkable for class I obesity. His medical therapy was reviewed and lab data since her last visit were discussed with the patient. ASSESSMENT AND PLAN: 1. Hypertension currently controlled on present medical therapy with no changes needed. Recommended continuous salt restriction, weight loss and exercise. 2. Hyperlipidemia, on statin therapy, under control. LDL cholesterol around 40 mg/dL. 3. Diabetes, managed by diabetes clinic at [facility] 4. Class I obesity. Encouraged more weight control with diet and exercise. 5. Coronary artery disease with 50% LAD stenosis in 2009 cardiac catheterization, nuclear stress test 2020 was normal risk factor have been aggressively targeted 6. 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 Obstructive sleep apnea compliant with CPAP machine. Jaleesa Conn MD, [facility] Review of Systems All other systems reviewed and are negative. Vitals: 06/30/23 1100 06/30/23 1118 BP: 140/82 136/80 BP Location: Left arm Left arm Patient Position: Sitting Sitting Pulse: 76 Weight: 90.7 kg (200 lb) Height: 1.676 m (5' 6 ) Objective Physical Exam Constitutional: Appearance: Normal appearance. HENT: Nose: Nose normal. Neck: Vascular: No carotid bruit. Cardiovascular: Rate and Rhythm: Normal rate. Pulses: Normal pulses. Heart sounds: Normal heart sounds. Pulmonary: Effort: Pulmonary effort is normal. Abdominal: General: Bowel sounds are normal. Palpations: Abdomen is soft. Musculoskeletal: General: Normal range of motion. Cervical back: Normal range of motion. Right lower leg: No edema. Left lower leg: No edema. Skin: General: Skin is warm and dry. Neurological: General: No focal deficit present. Mental Status: He is alert. Psychiatric: Mood and Affect: Mood normal. Behavior: Behavior normal. Thought Content: Thought content normal. Judgment: Judgment normal. Allergies Patient has no known allergies. Current Medications Current Outpatient Medications: amLODIPine-benazepriL (Lotrel) 5-20 mg capsule, Take 1 capsule by mouth once daily., Disp: , Rfl: aspirin 81 mg EC tablet, Take 1 tablet (81 mg) by mouth every other day., Disp: , Rfl: cholecalciferol (Vitamin D-3) 25 MCG (1000 UT) tablet, Take 1 tablet (1,000 Units) by mouth every other day., Disp: , Rfl: cyanocobalamin (Vitamin B-12) 1,000 mcg tablet, Take 1 tablet (1,000 mcg) by mouth every other day., Disp: , Rfl: dulaglutide (TRULICITY SUBQ), Inject under the skin 1 (one) time per week., Disp: , Rfl: glipiZIDE (Glucotrol) 10 mg tablet, Take 1 tablet (10 mg) by mouth once daily., Disp: , Rfl: insulin glargine (Basaglar KwikPen U-100 Insulin) 100 unit/mL (3 mL) pen, Inject 31 Units under the skin. As directed., Disp: , Rfl: metFORMIN (Glucophage) 1,000 mg tablet, Take 1 tablet (1,000 mg) by mouth 2 times a day with meals., Disp: , Rfl: omega 1-rov-ncm-fish oil (Fish OiL) 1,000 mg (120 mg-180 mg) capsule, Take 2 capsules (2,000 mg) by mouth every other day., Disp: , Rfl: simvastatin (Zocor) 40 mg tablet, Take 1 tablet (40 mg) by mouth once daily at bedtime., Disp: 90 tablet, Rfl: 3 Assessment/Plan 1. ASCVD (arteriosclerotic cardiovascular disease) Follow Up In Cardiology 2. Essential hypertension, benign 3. Mixed hyperlipidemia 4. Type 2 diabetes mellitus without complication, with long-term current use of insulin (Multi) 5. Former smoker 6. BMI 32.0-32.9,adult 7. Obstructive sleep apnea syndrome Scribe Attestation By signing my name below, I, Rafael Alva LPN attest that this documentation has been prepared under the direction and in the presence of Jaleesa Conn MD. Provider Attestation - Scribe documentation All medical record entries made by the Scribe were at my direction and personally dictated by me. I have reviewed the chart and agree that the record accurately reflects my personal performance of the history, physical exam, discussion and plan. documented in this encounter [facility] Work Phone: 06-30-2023 Instructions Celina Womack LPN - 06/30/2023 11:00 AM EDT Please bring all medicines, vitamins, and herbal supplements with you when you come to the office. Prescriptions will not be filled unless you are compliant with your follow up appointments or have a follow up appointment scheduled as per instruction of your physician. Refills should be requested at the time of your visit. BMI was above normal measurement. Current weight: 90.7 kg (200 lb) Weight change since last visit (-) denotes wt loss -3 lbs Weight loss needed to achieve BMI 25: 45.4 Lbs Weight loss needed to achieve BMI 30: 14.5 Lbs Provided instructions on dietary changes Provided instructions on exercise Advised to Increase physical activity. documented in this encounter [facility] Work Phone: 06-18-2023 Note [phone] [id number] Note [facility] SURGERY Clinical Discharge Summary PERSON INFORMATION Name JOSEPH ESCALONA Age 77 Years 1945 Sex MALE Language [place] PCP Dion Griggs Marital Status Med Service Ambulatory Surgery Acct# Arrival 06/15/2023 11:20:08 Visit Reason SURGERY - CYSTOSCOPY Acuity LOS 008 05:56 Address: [address] [place] [address] Comment: PROVIDER INFORMATION VITALS INFORMATION Vital Sign Triage Latest Temp Oral Temp Temporal Temp Intravascular Temp Axillary Temp Rectal 02 Sat 100 % 100 % Respiratory Rate Peripheral Pulse Rate Apical Heart Rate Blood Pressure / 85 mmHg / 85 mmHg Comment: MEDICAL INFORMATION Allergy Info: No Known Medication Allergies Prescriptions Given: amlodipine-benazepril (amlodipine-benazepril 5 mg-20 mg oral capsule) 1 cap(s) Oral (given by mouth) every day. aspirin (aspirin 81 mg oral delayed release tablet) 1 tab(s) Oral (given by mouth) every day. cholecalciferol (Vitamin D3 1000 intl units oral capsule) 1 cap(s) Oral (given by mouth) every other day. dulaglutide (Trulicity Pen 1.5 mg/0.5 mL subcutaneous solution) 0.5 Milliliter Subcutaneous (under the skin) every week. glipiZIDE (glipiZIDE 10 mg oral tablet) 1 tab(s) Oral (given by mouth) every day. insulin glargine (insulin glargine 100 units/mL subcutaneous solution) 31 unit(s) Subcutaneous (under the skin) At bedtime. metFORMIN (metFORMIN 1000 mg oral tablet) 1 tab(s) Oral (given by mouth) once a day (in the morning). omega-3 polyunsaturated fatty acids (omega-3 polyunsaturated fatty acids 1000 mg oral capsule) 1 cap(s) Oral (given by mouth) every other day. simvastatin (simvastatin 40 mg oral tablet) 1 tab(s) Oral (given by mouth) once a day (at bedtime). Medication List: Medications to Continue That Have Not Changed Other Medications amlodipine-benazepril (amlodipine-benazepril 5 mg-20 mg oral capsule) 1 cap(s) Oral (given by mouth) every day. aspirin (aspirin 81 mg oral delayed release tablet) 1 tab(s) Oral (given by mouth) every day. cholecalciferol (Vitamin D3 1000 intl units oral capsule) 1 cap(s) Oral (given by mouth) every other day. dulaglutide (Trulicity Pen 1.5 mg/0.5 mL subcutaneous solution) 0.5 Milliliter Subcutaneous (under the skin) every week. glipiZIDE (glipiZIDE 10 mg oral tablet) 1 tab(s) Oral (given by mouth) every day. insulin glargine (insulin glargine 100 units/mL subcutaneous solution) 31 unit(s) Subcutaneous (under the skin) At bedtime. metFORMIN (metFORMIN 1000 mg oral tablet) 1 tab(s) Oral (given by mouth) once a day (in the morning). omega-3 polyunsaturated fatty acids (omega-3 polyunsaturated fatty acids 1000 mg oral capsule) 1 cap(s) Oral (given by mouth) every other day. simvastatin (simvastatin 40 mg oral tablet) 1 tab(s) Oral (given by mouth) once a day (at bedtime). Medications to Continue That Have Not Changed Other Medications amlodipine-benazepril (amlodipine-benazepril 5 mg-20 mg oral capsule) 1 cap(s) Oral (given by mouth) every day. aspirin (aspirin 81 mg oral delayed release tablet) 1 tab(s) Oral (given by mouth) every day. cholecalciferol (Vitamin D3 1000 intl units oral capsule) 1 cap(s) Oral (given by mouth) every other day. dulaglutide (Trulicity Pen 1.5 mg/0.5 mL subcutaneous solution) 0.5 Milliliter Subcutaneous (under the skin) every week. glipiZIDE (glipiZIDE 10 mg oral tablet) 1 tab(s) Oral (given by mouth) every day. insulin glargine (insulin glargine 100 units/mL subcutaneous solution) 31 unit(s) Subcutaneous (under the skin) At bedtime. metFORMIN (metFORMIN 1000 mg oral tablet) 1 tab(s) Oral (given by mouth) once a day (in the morning). omega-3 polyunsaturated fatty acids (omega-3 polyunsaturated fatty acids 1000 mg oral capsule) 1 cap(s) Oral (given by mouth) every other day. simvastatin (simvastatin 40 mg oral tablet) 1 tab(s) Oral (given by mouth) once a day (at bedtime). Medications to Continue That Have Not Changed Other Medications amlodipine-benazepril (amlodipine-benazepril 5 mg-20 mg oral capsule) 1 cap(s) Oral (given by mouth) every day. aspirin (aspirin 81 mg oral delayed release tablet) 1 tab(s) Oral (given by mouth) every day. cholecalciferol (Vitamin D3 1000 intl units oral capsule) 1 cap(s) Oral (given by mouth) every other day. dulaglutide (Trulicity Pen 1.5 mg/0.5 mL subcutaneous solution) 0.5 Milliliter Subcutaneous (under the skin) every week. glipiZIDE (glipiZIDE 10 mg oral tablet) 1 tab(s) Oral (given by mouth) every day. insulin glargine (insulin glargine 100 units/mL subcutaneous solution) 31 unit(s) Subcutaneous (under the skin) At bedtime. metFORMIN (metFORMIN 1000 mg oral tablet) 1 tab(s) Oral (given by mouth) once a day (in the morning). omega-3 polyunsaturated fatty acids (omega-3 polyunsaturated fatty acids 1000 mg oral capsule) 1 cap(s) Oral (given by mouth) every other day. simvastatin (simvastatin 40 mg oral tablet) 1 tab(s) Oral (giv (more content not included)... [facility] 04-28-2023 Hospital Discharge instructions Patient Education 04/28/2023 10:39:28 Urodynamic Testing [...] including vitamins, herbs, eye drops, creams, and rkvg-hyg-shjmmlv medicines. ?Whether you are or may be [...] provider. Document Revised: 10/29/2021 Document Reviewed: 09/20/2020 [employer] Patient Education 2022 [employer]. 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] including vitamins, herbs, eye drops, creams, and oqyu-cny-iozozor medicines. Any problems you or family members [...] provider tells you to take them. Taking mako-dem-ureybzm medicines, vitamins, herbs, and supplements. Tests You [...] Follow these instructions at home: Medicines Take mfgp-cyo-sgdraaz and prescription medicines only as told by [...] provider. Document Revised: 10/29/2021 Document Reviewed: 09/27/2020 [employer] Patient Education 2022 [employer]. Follow Up Care 08/04/2022 10:55:35 With:BROOKS ANTHONY, AGNELI Montiel, URL Address: [address] [place] [address] [phone] When: Unknown Comments:sched cysto/TRUS [facility] Sadi 12-05-2023 NoteUrology Cystoscopy Cystoscopy is a procedure [...] including vitamins, herbs, eye drops, creams, and pelr-eex-posqhhr medicines. ? Any problems you or family [...] tells you to take them. ? Taking qxbx-bmx-cucwuzw medicines, vitamins, herbs, and supplements. Tests You [...] these instructions at home: Medicines ? Take ikwa-tgt-utowfqs and prescription medicines only as told by [...] or the department th (more content not included)...[facility] 12-15-2022 Evaluation note* Encounter Date Diagnosis Assessment [...] high blood pressure material was published on amelia; Pt reports checked bp at home this morning and was 127/75. Reviewed continue to check bp at home, if bp >140/90 f/u with pcp for further evaluation. 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.4) Nov, Vitamin B 12 deficiency (ICD-10 - E53.8) 05/2022 vit b 12 281 at target Nov, BMI 33.0-33.9,adult (ICD-10 - Z68.33) Setting weight-loss goals material was published [employer] Other 06-22-2023 Evaluation note* Encounter Date Diagnosis Assessment Notes Treatment Notes Treatment Clinical Notes 22 Roverto, 2023 Acute bacterial conjunctivitis of right eye (ICD-10 - H10.31) Wipe w/ warm wash cloth in morning Artificial tears Frequent hand washing Notify office or see news content specialist if develop pain, blurred vision or fails to improve Jul, Viral URI (ICD-10 - J06.9) Instructed to use Robitussin or Mucinex for cough, saline or Flonase NS for congestion, Tylenol for pain and fever. Jul, Type 2 diabetes mellitus with hyperglycemia (ICD-10 - E11.65) Acute infection may cause BS to increase temporarily. No adjustment in treatment necessary [facility] Other 06-06-2023 Hospital Discharge instructions Patient Education [...] urethra. Follow these instructions at home: Take xxgy-geq-icsrvbx and prescription medicines only as told by [...] provider. Document Revised: 09/03/2021 Document Reviewed: 09/03/2021 [employer] Patient Education 2022 [employer]. Follow Up Care 02/25/2022 10:18:55 With:ANGELI GUY PA-C, ROMANL Address: When:1 year [facility] [place] 05-02-2023 Evaluation note* Encounter Date Diagnosis Assessment Notes Treatment Notes Treatment Clinical Notes June, Arteriosclerotic hea rt disease (ASHD) (ICD-10 - I25.10) LHC: 50% - 2009 [facility] Other 04-17-2023 Evaluation note* Encounter Date Diagnosis [...] issues. 6. Prescriptions: LIT PAP: Curt Oliva; 7. Prescriptions will not be filled unless [...] high blood pressure material was published on amelia; uncontrolled- f/u with pcp for further recommendation. 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 ?Whether you are or may be [...] 12/13/2007 Document Revised: 06/06/2019 Document Reviewed: 12/20/2017 [employer] Patient Education 2019 [employer]. Follow Up Care 08/26/2021 10:57:16 With:ANGELI GUY PA-C, URL Address: [address] [place] [address] When: Unknown [facility] 06-28-2022 Hospital Discharge instructions Patient Education 08/26/2021 [...] Follow these instructions at home: Medicines Take vufl-qtr-rsoqvta and prescription medicines only as told by [...] or the blood stops without treatment. Take wsbk-ihl-egbgboi and prescription medicines only as told by your health care provider. Drink enough fluid to keep your urine clear or pale yellow. This information is not intended to replace advice given to you by your health care provider. Make sure you discuss any questions you have with your health care provider. Document Released: 02/15/2006 Document Revised: 07/12/2019 Document Reviewed: 03/20/2017 [employer] Patient Education 2020 [employer] Follow Up Care 02/25/2021 11:22:41 With:Hank Robbins MD, Kailee Szymanski, URO Address: [facility] [address], [place] [phone] When:02/25/2022 [facility] chiit complaint+Reason for visit Narrative* Chief Complaint meter show pt. how to use the [employer] [facility] Reason for Visit Dietary counseling a nd surveillance Primary hypertension Vitamin B 12 deficiency Anemia Arteriosclerotic heart disease (ASHD) Benign prostatic hyperplasia with lower urinary tract symptoms Elevated cholesterol Obstructive sleep apnea Primary hypertension Type 2 diabetes mellitus with diabetic polyneuropathy Type 2 diabetes mellitus with hyperglycemia Medicare annual wellness visit, [facility] Work Phone: evaluation + Plan note Future Appointments Appointment Date:03/10/2022 10:15:00 AM Scheduled Provider:Kailee Mckinney Jr., MD Location:[facility] Appointment Type:URO Office Visit Diagnostic Tests Pending * PSA Total 08/26/21 [facility] evaluation + Plan note Future Appointments Appointment Date:08/04/2022 10:00:00 AM Scheduled Provider:ANGELI GUY PA-C Location:[facility] Appointment Type:URO Office Visit [facility] evaluation + Plan note Future Appointments Appointment Date:02/03/2023 01:00:00 PM Scheduled Provider:ANGELI GUY PA-C Location:[facility] Appointment Type:URO Office Visit [facility] evaluation + Plan note Future Appointments Appointment Date:04/28/2023 10:00:00 AM Scheduled Provider:Sara Bob MD Location:[facility] Appointment Type:URO Office Visit [facility] Evaluation noteNo [place] [employer] Other Evaluation noteNort [employer] Other Evaluation noteNo assessment information available [facility] Work Phone: Evaluation note* Diagnosis Onset Date Resolution Status Bilateral nephrolithiasis ac latasha Urinary retention with incomplete bladder emptying acute Pyelonephritis of right kidney noneactive Dietary counseling and surveillance acute Hyperlipidemia LDL goal <100 acute Primary hypertension acute Type 2 diabetes mellitus acu te Vitamin B 12 deficiency acut e [facility] Work Phone: Evaluation note* Diagnosis Essential hypertension, benign- Primary ASCVD (arteriosclerotic cardiovascular disease) Unspecified cardiovascular disease Mixed hyperlipidemia Type 2 diabetes mellitus without complication, with long-term current use of insulin (Multi) Former smoker Personal history of tobacco use, presenting hazards to health BMI 32.0-32.9,adult Obstructive sleep apnea syndrome Obstructive sleep apnea (adult) (pediatric) Urinary retention Unspecified retention of urine documented in this encounter [facility] Work Phone: Evaluation note* Diagnosis Onset Date Resolution Status Dietary counseling and surveillance acute Primary hypertension acute Vitamin B 12 deficiency acut e Anemia acute Arteriosclerotic heart disease (ASHD) acute Benign prostatic hyperplasia with lower urinary tract symptoms acute Elevated cholesterol acute Obstructive sleep apnea acut e Primary hypertension acute Type 2 diabetes mellitus wit h diabetic polyneuropathy acute Type 2 diabetes mellitus with hyperglycemia acute Medicare annual wellness visit, subsequent noneactive [facility] Work Phone: Hisfsjc general Narrative - Reported* Type Description Date Medical History hypertension Medical History hyperlipidemia Medical History DM2 Medical History obesity Medical History CAD- 50% occlusion LAD-Sees Dr Keila oro Surgical History appendectomy Surgical History RT knee surgery Surgical History arthroscopic knee surgery, left 01/17 Surgical History Cystoscopy 05/01/2020 Hospitalization History see above surgery [facility] Other [facility] general Narrative - Reported* Type Description Date [...] surgery Surgical History arthroscopic knee surgery, left .2010 Surgical History Cystoscopy 05/01/2020 Surgical History colonoscopy 2009 Surgical History EGD 1997 Hospitalization History see above surgery [facility] [employer] Other [facility] - [facility] [employer] Other Hospital course Narrative No data available for this section [facility] [employer] Hospital Discharge instructions No data available for this section [facility] [place] note No data available for this section [facility] [employer] reason for referral (narrative)* Consultation (Routine) - Authorized Specialty Diagnoses / Procedures Referred By Constantino t Referred To Contact Cardiology Diagnoses ASCVD (arteriosclerotic cardiovascular disease) Procedures Follow Up In Cardiology Jaleesa Conn MD [address] [place] [address], [place] [address] Jaleesa Conn MD [address] [place] [address] 2, [place] [address] Referral ID Status Reason Start Date Expiration Date V isits Requested Visits Authorized [id number] Authorized 06/30/2023 06/29/2024 1 1 [facility] Work Phone: Summary Purpose Family History No Family History [...] Unknown Not Specified Heart disease Unknown Unknown Relationship Condition Age at Onset Recorded Date/T holden father Unknown Hypertension Unknown History of stroke Unknown mother Heart disease Unknown Unknown Advance Directives No Advanced Directives Records Found Advance Directive Response Recorded Date/ Time Advance Directives No August 04 10:15am Advance Directive Response Recorded Date/ Time Advance Directives No August 04 11:15am Chief Complaint * JOSEPH ESCALONA is being seen for a 9 [...] 3. Diabetes, managed by diabetes clinic at [facility] * 4. Obesity. Encouraged more weight control with diet and exercise. His weight has increased 10 pounds from last visit, encouragement provided to reduce calorie consumption since he seems to be physically active * 5. Coronary artery disease with 50% LAD stenosis in 2009 cardiac catheterization, nuclear stress test 2020 was normal risk factor have been aggressively targeted * Jaleesa Conn MD, FACC * JOSEPH ESCALONA is being seen for a 9 [...] 3. Diabetes, managed by diabetes clinic at [facility] * 4. Obesity. Encouraged more weight control with diet and exercise. His weight has increased 10 pounds from last visit, encouragement provided to reduce calorie consumption since he seems to be physically active * 5. Coronary artery disease with 50% LAD stenosis in 2009 cardiac catheterization, nuclear stress test 2020 was normal risk factor have been aggressively targeted * J[facility] Conn MD, [facility] * JOSEPH ESCALONA is being seen for an annual [...] 3. Diabetes, managed by diabetes clinic at [facility], recent A1c 7.2 * 4. Obesity. Encouraged more weight control with diet and exercise. His weight has increased 10 pounds from last visit, encouragement provided to reduce calorie consumption since he seems to be physically active * 5. Coronary artery disease with 50% LAD stenosis in 2009 cardiac catheterization, nuclear stress test 2019 was normal risk factor have been aggressively targeted * 6. Recent development of significant back pain left arm pain and left lower extremity pain. Patientis scheduled to see his PCP soon. The patient is are concerned about this being cardiac in origin the nature of the symptoms does not point out cardiac cause. * Jaleesa Conn MD, FACC * JOSEPH ESCALONA is being seen for hypertension. * Patient is in the office for follow-up for hypertension management. We added amlodipine recently and his blood pressure is currently under control with no side effects. We will place the patient's ulises combination therapy of amlodipine and AMELIA inhibitor in the form of Lotrel for simplicity. Patientwas advised to continue to work on his weight since he is still obese. Chief Complaint and Reason for Visit Chief Complaint Face To Face For Cpa p Supplies Chief Complaint Face To Face For Cpa p Supplies ER follow up Chief Complaint ER follow up meter Reason for Visit Bilateral nephrolith iasis Urinary retention with incomplete bladder emptying Pyelonephritis of right kidney Dietary counseling and surveillance Hyperlipidemia LDL goal <100 Primary hypertension Type 2 diabetes mellitus Vitamin B 12 deficiency Additional Source Comments (unrecognized sect ion and content) No Status Records FoundNo Status Records FoundNo Status Records FoundNo Status Records FoundNo Status Records FoundNo Status Records FoundNo Status Records FoundNo Status Records FoundNo Status Records Found INFORMATION SOURCE (unrecogn ized section and content) DATE CREATED AUTHOR 08/16/2019 [facility] DATE CREATED AUTHOR AUTHOR'S ORGANIZ ATION 03/26/2020 [facility] DATE CREATED AUTHOR AUTHOR'S ORGANIZ ATION 06/15/2022 [facility] DATE CREATED AUTHOR AUTHOR'S ORGANIZ ATION 07/01/2022 [facility] DATE CREATED AUTHOR AUTHOR'S ORGANIZ ATION 07/02/2022 [facility] DATE CREATED AUTHOR AUTHOR'S ORGANIZ ATION 04/15/2023 [facility] DATE CREATED AUTHOR AUTHOR'S ORGANIZ ATION 07/08/2023 [facility] DATE CREATED AUTHOR AUTHOR'S ORGANIZ ATION 07/28/2023 Maurisio Billings [facility] DATE CREATED AUTHOR AUTHOR'S ORGANIZ ATION 09/13/2023 [facility] REASON FOR VISIT (unrecogniz ed section and content) Reason Comments Annual Exam 1y Care Team (unrecognized sect ion and content) Team Status: Active Member Role Status Dates Dion Griggs DO Primary Care Provider Active Team Status: Active Member Role Status Dates Dion Griggs DO Primary Care Provide r, Attending Provider Active Start: May 04, 2023 Team Status: Active Member Role Status Dates Dion Griggs DO Primary Care Provide r, Attending Provider Active Start: May 20, 2023 Team Status: Inactive Member Role Status Dates Dion Griggs DO Primary Care Provide r, Attending Provider Active Start: May 24, 2023 End: May 24, 2023 Team Status: Active Member Role Status Dates Dion Griggs DO Primary Care Provide r, Attending Provider Active Start: June 22, 2023 Team Status: Inactive Member Role Status Dates Dion Griggs DO Primary Care Provider Active Start: June 24, 2023 End: June 24, 2023 Ynes Jain APRN Attending Provider Active Start: June 24, 2023 End: June 24, 2023 Team Status: Inactive Member Role Status Dates Dion Griggs DO Attending Provider Active Sta rt: March 17, 2023 End: March 17, 2023 [employer] Technician Relationship Specialty Start Date End Date Dion Griggs DO PCP - General 08/15/19 Team Status: Active Member Role Status Lynn Griggs DO Primary Care Provide r, Attending Provider Active Start: June 29, 2023 Team Status: Inactive Member Role Status Lynn Griggs DO Primary Care Provider Active Start: July 13, 2023 End: July 13, 2023 David Botello RN Attending Provider Active St art: July 13, 2023 End: July 13, 2023 Team Status: Inactive Member Role Status Lynn Griggs DO Primary Care Provide r, Attending Provider Active Start: September 06, 2023 End: September 06, 2023 Goals (unrecognized section and content) Goals [...] BE BASED ON THE PRIMARY CLINICAL RECORDS. [facility] [employer] [facility]. provides no warranty or guarantee of the accuracy or completeness of information in this document.
--- NOTE | 2023-09-27 18:36 | ED_ITS ---
Documented by User: Piotr Gillespie MD 09/27/23 18:47 HPI - Abdominal Pain General Chief Complaint: Abdominal Pain Stated Complaint: Abdominal Pain Time Seen by Provider: 09/27/23 18:36 Source: patient and family Mode of arrival: walk-in History of Present Illness HPI narrative: This patient is here with his complaining of abdominal pain. It started approximately noon. It radiates a little bit into his back. He has been seen by a number of local urologist. 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 He also has had several bladder infections this year. He has not been known to have a kidney stone previously. He is not on any antibiotics now. He has not had fever shakes or chills. He has no known history of diverticulitis. He has had his appendix removed. He is known to have gallstones but the pain is on the left lower quadrant. He has not noticed any blood in his urine when he caths himself. He now sees Dr. Rhodes, urologist in [facility] Related Data Previous Rx's ?Medication ?Instructions ?Recorded ciprofloxacin HCl 500 mg tablet 500 mg PO BID #20 tabs 05/20/23 (Cipro) ondansetron 4 mg disintegrating 4 mg PO Q6H PRN nausea and 05/20/23 tablet vomiting #12 tabs tramadol 50 mg tablet 50 mg PO Q4H PRN pain 3 days #15 05/20/23 tabs Allergies Allergy/AdvReac Type Severity Reaction Status Date / Time No Known Drug Allergies Allergy Verified 05/24/23 12:52 Exam Narrative Exam Narrative: Awake alert pleasant says his pain is 5/10 but he does not want anything for pain. He says he does have some nausea. Examination abdomen is not distended. There is good bowel sounds. There is no peritoneal findings. There is no pulsatile mass. He has good perfusion to the lower extremities. His skin is warm and dry he is not clammy or diaphoretic. He has no tenderness in the right upper quadrant. Cognition and mentation are normal he has no respiratory distress vital signs are noted with slight increase in pulse but he is afebrile. Constitutional Vital Signs, click to edit/add: Last Vital Signs Temp 98.3 F 09/27/23 18:27 Pulse 91 H 09/27/23 20:34 Resp 18 09/27/23 20:34 BP 141/80 09/27/23 20:34 Pulse Ox 95 09/27/23 20:34 O2 Del Method Room Air 09/27/23 20:34 Course Vital Signs Vital signs: Vital Signs Temperature 98.3 F 09/27/23 18:27 Pulse Rate 102 H 09/27/23 18:27 Respiratory Rate 18 09/27/23 18:27 Blood Pressure 167/82 H 09/27/23 18:27 Pulse Oximetry 96 09/27/23 18:27 Oxygen Delivery Method Room Air 09/27/23 18:27 Temperature 98.3 F 09/27/23 18:27 Pulse Rate 91 H 09/27/23 20:34 Respiratory Rate 18 09/27/23 20:34 Blood Pressure 141/80 09/27/23 20:34 Pulse Oximetry 95 09/27/23 20:34 Oxygen Delivery Method Room Air 09/27/23 20:34 MDM - Abdominal Pain MDM Narrative Medical decision making narrative: Patient presents with abdominal pain for the several hours that radiates into his flank. CT scan will be ordered as well as routine chemistries and CBC. Care will be turned over the next ER physician Dr. Nayak at the change of shift. Lab Data Labs: Lab Results 09/27/23 09/27/23 09/27/23 Range/Units 18:53 19:30 20:05 WBC 8.7 (4.0-11.0) 10^3/uL RBC 4.74 (4.70-6.10) 10^6/uL Hgb 14.1 (14.0-18.0) g/dL Hct 40.7 L (42.0-54.0) % MCV 85.9 (80.0-94.0) fL MCH 29.7 (25.9-34.0) pg MCHC 34.6 (29.9-35.2) g/dL RDW 12.9 (11.0-15.0) % Plt Count 149 L (150-450) 10^3/uL MPV 9.7 (9.5-13.5) fL Neut % (Auto) 80.0 H (43.0-75.0) % Lymph % (Auto) 9.2 L (20.5-60.0) % Prowers % (Auto) 9.0 (1.7-12.0) % Eos % (Auto) 1.0 (0.9-7.0) % Baso % (Auto) 0.3 (0.2-2.0) % Neut # (Auto) 6.9 H (1.4-6.5) 10^3/uL Lymph # (Auto) 0.8 L (1.2-3.8) 10^3/uL Prowers # (Auto) 0.8 (0.3-0.8) 10^3/uL Eos # (Auto) 0.1 (0.0-0.7) 10^3/uL Baso # (Auto) 0.0 (0.0-0.1) 10^3/uL Abs Immat Gran (auto) 0.04 H (0.00-0.03) 10^3/uL Imm/Tot Granulo (auto) 0.5 (0.0-0.5) % Sodium 137 (136-145) mmol/L Potassium 3.7 (3.5-5.1) mmol/L Chloride 102 (98-107) mmol/L Carbon Dioxide 26.7 (21.0-32.0) mmol/L Anion Gap 12.0 BUN 10.0 (7.0-18.0) mg/dL Creatinine 0.85 (0.70-1.30) mg/dL Est GFR ( Amer) >60 (>=60) Est GFR (Non-Af Amer) >60 (>=60) BUN/Creatinine Ratio 11.8 Glucose 120 H (74-106) mg/dL Lactate 1.1 (0.4-2.0) mmol/L Calcium 8.7 (8.5-10.1) mg/dL Total Bilirubin 0.8 (0.2-1.0) mg/dL AST 17 (15-37) U/L ALT 28 (16-63) U/L Alkaline Phosphatase 50 (46-116) U/L Total Protein 7.1 (6.4-8.2) g/dL Albumin 3.7 (3.4-5.0) g/dL Globulin 3.4 g/dL Albumin/Globulin Ratio 1.1 Urine Color Lt. yellow (YELLOW) Urine Clarity Clear (CLEAR) Urine pH 6.0 (5.0-9.0) Ur Specific Ladd 1.020 (1.005-1.025) Urine Protein >=300 A (NEG/TRACE) mg/dL Urine Glucose (UA) Negative (NEGATIVE) mg/dL Urine Ketones Negative (NEGATIVE) mg/dL Urine Occult Blood Large A (NEGATIVE) Urine Nitrite Positive A (NEGATIVE) Urine Bilirubin Negative (NEGATIVE) Urine Urobilinogen 0.2 (0.2-1.0) EU/dL Ur Leukocyte Esterase Moderate A (NEGATIVE) Urine RBC 5-10 A (0-2) #/HPF Urine WBC >100 A (NONE SEEN) #/HPF Ur Squamous Epith Cells Rare (NONE/RARE) #/LPF Urine Crystals None seen (None Seen) #/HPF Urine Bacteria Large A (NONE SEEN) #/HPF Urine Casts None seen (NONE SEEN) #/LPF Urine Mucus Trace A (NONE SEEN) Ur Culture Indicated? Yes Imaging Data CT scan - abdomen: Radiologist's impression: ITS Impressions Abdomen/Pelvis CT 09/27/23 18:47 Impression: 1. A 6 mm stone in proximal third of left ureter causing moderate left hydronephrosis. 2. A 1 cm stone in right pelviureteral junction. No right hydronephrosis. 3. Bilateral renal nonobstructive stones measuring up to 1 cm. Stable 3.5 cm left renal cyst. Stable trabeculated bladder wall. 4. Stable 2 cm gallstone. No evidence of acute cholecystitis. Stable bilateral adrenal lipid rich adenomas. 5. Degenerative disc disease of the lumbosacral spine. Electronically authenticated by: DERICK PEÑA Date: 09/27/2023 21:36 Discharge Plan Discharge Chief Complaint: Abdominal Pain Clinical Impression: Right flank pain Patient Disposition: Admitted as Observation Time of Disposition Decision: 22:04 Condition: Good Documented by User: Delonte Holloway MD 09/27/23 22:07 HPI - Abdominal Pain General Chief Complaint: Abdominal Pain Stated Complaint: Abdominal Pain Time Seen by Provider: 09/27/23 18:36 Related Data Previous Rx's ?Medication ?Instructions ?Recorded ciprofloxacin HCl 500 mg tablet 500 mg PO BID #20 tabs 05/20/23 (Cipro) ondansetron 4 mg disintegrating 4 mg PO Q6H PRN nausea and 05/20/23 tablet vomiting #12 tabs tramadol 50 mg tablet 50 mg PO Q4H PRN pain 3 days #15 05/20/23 tabs Allergies Allergy/AdvReac Type Severity Reaction Status Date / Time No Known Drug Allergies Allergy Verified 05/24/23 12:52 Exam Constitutional Vital Signs, click to edit/add: Last Vital Signs Temp 98.3 F 09/27/23 18:27 Pulse 91 H 09/27/23 20:34 Resp 18 09/27/23 20:34 BP 141/80 09/27/23 20:34 Pulse Ox 95 09/27/23 20:34 O2 Del Method Room Air 09/27/23 20:34 Course Vital Signs Vital signs: Vital Signs Temperature 98.3 F 09/27/23 18:27 Pulse Rate 102 H 09/27/23 18:27 Respiratory Rate 18 09/27/23 18:27 Blood Pressure 167/82 H 09/27/23 18:27 Pulse Oximetry 96 09/27/23 18:27 Oxygen Delivery Method Room Air 09/27/23 18:27 Temperature 98.3 F 09/27/23 18:27 Pulse Rate 91 H 09/27/23 20:34 Respiratory Rate 18 09/27/23 20:34 Blood Pressure 141/80 09/27/23 20:34 Pulse Oximetry 95 09/27/23 20:34 Oxygen Delivery Method Room Air 09/27/23 20:34 MDM - Abdominal Pain MDM Narrative Medical decision making narrative: Patient presents with abdominal pain for the several hours that radiates into his flank. CT scan will be ordered as well as routine chemistries and CBC. Care will be turned over the next ER physician Dr. Nayak at the change of shift. JK 10:00pm 6 m proximal left ureteral stone is identified as well as UTI. He will be admitted for IV antibiotics and possible stent tomorrow. Findings are discussed with the patient and his as well as Dr Bob. Differential Diagnosis Differential diagnosis: Likely abdominal pain, calculus of kidney, constipation, diverticulitis, gastroenteritis and small bowel obstruction Lab Data Attestation: I reviewed the patient's lab results. Labs: Lab Results 09/27/23 09/27/23 09/27/23 Range/Units 18:53 19:30 20:05 WBC 8.7 (4.0-11.0) 10^3/uL RBC 4.74 (4.70-6.10) 10^6/uL Hgb 14.1 (14.0-18.0) g/dL Hct 40.7 L (42.0-54.0) % MCV 85.9 (80.0-94.0) fL MCH 29.7 (25.9-34.0) pg MCHC 34.6 (29.9-35.2) g/dL RDW 12.9 (11.0-15.0) % Plt Count 149 L (150-450) 10^3/uL MPV 9.7 (9.5-13.5) fL Neut % (Auto) 80.0 H (43.0-75.0) % Lymph % (Auto) 9.2 L (20.5-60.0) % Prowers % (Auto) 9.0 (1.7-12.0) % Eos % (Auto) 1.0 (0.9-7.0) % Baso % (Auto) 0.3 (0.2-2.0) % Neut # (Auto) 6.9 H (1.4-6.5) 10^3/uL Lymph # (Auto) 0.8 L (1.2-3.8) 10^3/uL Prowers # (Auto) 0.8 (0.3-0.8) 10^3/uL Eos # (Auto) 0.1 (0.0-0.7) 10^3/uL Baso # (Auto) 0.0 (0.0-0.1) 10^3/uL Abs Immat Gran (auto) 0.04 H (0.00-0.03) 10^3/uL Imm/Tot Granulo (auto) 0.5 (0.0-0.5) % Sodium 137 (136-145) mmol/L Potassium 3.7 (3.5-5.1) mmol/L Chloride 102 (98-107) mmol/L Carbon Dioxide 26.7 (21.0-32.0) mmol/L Anion Gap 12.0 BUN 10.0 (7.0-18.0) mg/dL Creatinine 0.85 (0.70-1.30) mg/dL Est GFR ( Amer) >60 (>=60) Est GFR (Non-Af Amer) >60 (>=60) BUN/Creatinine Ratio 11.8 Glucose 120 H (74-106) mg/dL Lactate 1.1 (0.4-2.0) mmol/L Calcium 8.7 (8.5-10.1) mg/dL Total Bilirubin 0.8 (0.2-1.0) mg/dL AST 17 (15-37) U/L ALT 28 (16-63) U/L Alkaline Phosphatase 50 (46-116) U/L Total Protein 7.1 (6.4-8.2) g/dL Albumin 3.7 (3.4-5.0) g/dL Globulin 3.4 g/dL Albumin/Globulin Ratio 1.1 Urine Color Lt. yellow (YELLOW) Urine Clarity Clear (CLEAR) Urine pH 6.0 (5.0-9.0) Ur Specific Ladd 1.020 (1.005-1.025) Urine Protein >=300 A (NEG/TRACE) mg/dL Urine Glucose (UA) Negative (NEGATIVE) mg/dL Urine Ketones Negative (NEGATIVE) mg/dL Urine Occult Blood Large A (NEGATIVE) Urine Nitrite Positive A (NEGATIVE) Urine Bilirubin Negative (NEGATIVE) Urine Urobilinogen 0.2 (0.2-1.0) EU/dL Ur Leukocyte Esterase Moderate A (NEGATIVE) Urine RBC 5-10 A (0-2) #/HPF Urine WBC >100 A (NONE SEEN) #/HPF Ur Squamous Epith Cells Rare (NONE/RARE) #/LPF Urine Crystals None seen (None Seen) #/HPF Urine Bacteria Large A (NONE SEEN) #/HPF Urine Casts None seen (NONE SEEN) #/LPF Urine Mucus Trace A (NONE SEEN) Ur Culture Indicated? Yes Imaging Data CT scan - abdomen: Radiologist's impression: ITS Impressions Abdomen/Pelvis CT 09/27/23 18:47 Impression: 1. A 6 mm stone in proximal third of left ureter causing moderate left hydronephrosis. 2. A 1 cm stone in right pelviureteral junction. No right hydronephrosis. 3. Bilateral renal nonobstructive stones measuring up to 1 cm. Stable 3.5 cm left renal cyst. Stable trabeculated bladder wall. 4. Stable 2 cm gallstone. No evidence of acute cholecystitis. Stable bilateral adrenal lipid rich adenomas. 5. Degenerative disc disease of the lumbosacral spine. Electronically authenticated by: DERICK PEÑA Date: 09/27/2023 21:36 Discharge Plan Discharge Chief Complaint: Abdominal Pain Clinical Impression: Right flank pain Patient Disposition: Admitted as Observation Time of Disposition Decision: 22:04 Condition: Good
--- NOTE | 2023-09-27 18:47 | CT_ITS ---
[address] [address] Patient Name: KAREN ESCALONA MRN: [id number] date: 1945 Sex: M Assigned Patient Location: ER Current Patient Location: ED.MAIN Accession/Order Number: [id number] Exam Date: 09/27/2023 19:35 Report Date: 09/27/2023 21:36 At the request of: JAIME CÁRDENAS Procedure: CT abdomen pelvis wo con Indication: Left lower quadrant/left flank pain. Comparison: 05/20/2023 exam Procedure: Axial images were made from the diaphragms through the symphysis pubis. No oral contrast or intravenous contrast was given. Dose reduction techniques were achieved by using automated exposure control and/or adjustment of mA and/or kV according to patient size and/or use of iterative reconstruction technique. Findings: Liver/Biliary System: No liver masses are seen. No intra or extrahepatic biliary dilatation. Stable 2 cm gallstone. No evidence of acute cholecystitis. Pancreas/Spleen: No evidence of acute pancreatitis. Pancreatic duct is not dilated. No splenomegaly. Kidneys/Adrenals: A 6 mm stone is seen in proximal third of left ureter causing moderate left hydronephrosis. A 1 cm stone is seen in right pelviureteral junction. No right hydronephrosis. A 1 cm nonobstructive stone in left renal pelvis. A 3 mm nonobstructive stone is seen in middle calyx of left kidney. Couple of right renal nonobstructive stones, 2 mm each. Stable 3.5 cm left renal cyst. Stable bilateral adrenal lipid rich adenomas. Aorta/Vessels: No evidence of aortic aneurysm. Evaluation of vessels is limited due to lack of IV contrast. Bowel/Fluid/Nodes: No bowel dilatation or bowel wall thickening. No evidence of bowel obstruction. Appendix was not identified, however no secondary signs of appendicitis present. No ascites or fluid collections. No adenopathy. Lung bases: Clear. Other findings: No aggressive osseous lesions are seen. Pelvis: No pelvic masses or adenopathy. No free fluid seen in the pelvis. Stable trabeculated bladder wall. No bladder stones. Prostate and seminal vesicles grossly unremarkable. Other Findings: Degenerative disc disease of the lumbosacral spine. CT/CT abdomen pelvis wo con Impression: 1. A 6 mm stone in proximal third of left ureter causing moderate left hydronephrosis. 2. A 1 cm stone in right pelviureteral junction. No right hydronephrosis. 3. Bilateral renal nonobstructive stones measuring up to 1 cm. Stable 3.5 cm left renal cyst. Stable trabeculated bladder wall. 4. Stable 2 cm gallstone. No evidence of acute cholecystitis. Stable bilateral adrenal lipid rich adenomas. 5. Degenerative disc disease of the lumbosacral spine. Electronically authenticated by: DERICK PEÑA Date: 09/27/2023 21:36
[2023-09-27 19:08] LABS: Basophils Percent Auto 0.3 % (0.2-2.0); Eosinophils Absolute Auto 0.1 10^3/uL (0.0-0.7); Hematocrit 40.7 % (42.0-54.0); Hemoglobin 14.1 g/dL (14.0-18.0); Immature Granulocytes Abs Auto 0.04 10^3/uL (0.00-0.03); Immature Granulocytes Pct Auto 0.5 % (0.0-0.5); Lymphocytes Absolute Auto 0.8 10^3/uL (1.2-3.8); Lymphocytes Percent Auto 9.2 % (20.5-60.0); Mean Corpuscular HGB Conc 34.6 g/dL (29.9-35.2); Mean Corpuscular Hemoglobin 29.7 pg (25.9-34.0); Mean Corpuscular Volume 85.9 fL (80.0-94.0); Mean Platelet Volume 9.7 fL (9.5-13.5); Monocytes Absolute Auto 0.8 10^3/uL (0.3-0.8); Neutrophils Absolute Auto 6.9 10^3/uL (1.4-6.5); Platelet Count 149 10^3/uL (150-450); Red Blood Count 4.74 10^6/uL (4.70-6.10); Red Cell Distribution Width 12.9 % (11.0-15.0); White Blood Count 8.7 10^3/uL (4.0-11.0)
[2023-09-27] MEDS: ONDANSETRON PF 4 MG/2 ML VIAL IV (19:10)
[2023-09-27 19:20] LABS: Lactate/Lactic Acid 1.1 mmol/L (0.4-2.0)
[2023-09-27 19:36] LABS: Bilirubin Urine NEGATIVE (NEGATIVE); Blood Urine LARGE (NEGATIVE); Clarity Urine CLEAR (CLEAR); Color Urine LT. YELLOW (YELLOW); Glucose Urine UA NEGATIVE (NEGATIVE); Ketones Urine NEGATIVE (NEGATIVE); Leukocyte Esterase Urine MODERATE (NEGATIVE); Nitrite Urine POSITIVE (NEGATIVE); Protein Urine >=300 mg/dL (NEG/TRACE); Urobilinogen Urine 0.2 EU/dL (0.2-1.0)
[2023-09-27 19:37] LABS: Urine Microscopic Indicated YES
[2023-09-27 19:46] LABS: Bacteria Urine LARGE #/HPF (NONE SEEN); WBC Urine >100 #/HPF (NONE SEEN)
[2023-09-27 19:47] LABS: Cast Seen? NONE SEEN #/LPF (NONE SEEN); Crystals Seen? None Seen #/HPF (None Seen); Mucus Urine TRACE (NONE SEEN); Squamous Epithelial Cell Urine RARE #/LPF (NONE/RARE); Urine Culture Indicated YES
[2023-09-27 20:28] LABS: Alanine Aminotransferase 28 U/L (16-63); Albumin Globulin Ratio 1.1; Albumin Level 3.7 g/dL (3.4-5.0); Alkaline Phosphatase 50 U/L (46-116); Aspartate Amino Transferase 17 U/L (15-37); BUN Creatinine Ratio 11.8; Bilirubin Total 0.8 mg/dL (0.2-1.0); Calcium 8.7 mg/dL (8.5-10.1); Carbon Dioxide 26.7 mmol/L (21.0-32.0); Chloride 102 mmol/L (98-107); Estimated GFR (African America >60 (>=60); Estimated GFR (Non-African Ame >60 (>=60); Globulin 3.4 g/dL; Glucose 120 mg/dL (74-106); Potassium 3.7 mmol/L (3.5-5.1); Sodium 137 mmol/L (136-145); Total Protein 7.1 g/dL (6.4-8.2)
[2023-09-27 20:34] VITALS: BP 141/80; PULSE 91; O2SAT 95
[2023-09-27] MEDS: CEFTRIAXONE 1,000 MG in 0.9 % SODIUM CHLORIDE 50 ML 100 MG IV (21:22)
[2023-09-27 23:27] VITALS: BP 158/77; PULSE 92; TEMP 36.6; O2SAT 91; BMI 31.6
--- OUTSIDE RECORDS SUMMARY | 2023-09-27 23:27 | XMS_ITS | CCD ---
Author Organization [facility] CliniSywi Care Team Providers Care Dye Worker Name Role Phone CACHORRO ROBLERO Referring Unavailable [...] Jaleesa Conn Referring Unavailable Dr. Dion Griggs [facility] Unavai lable [place], Tondra [...] or physicia Propensity to adverse reactions Comment:Done Dhir Diamonds Other (1 source) No Known Medication Allergies; 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: [No Known Medication Allergies] Propensity to adverse reactions to drug (disorder) [facility] Repository Medications Current Medications Medication Drug [...] 24, 2023 1:41pm take 1 tablet [facility] cholecalciferol (Vitamin D-3) 25 MCG (1000 UT) tablet Take 1 tablet (1,000 Units) by mouth every other day. Active take 1 capsule by [facility] twenty-four hours Vitamin D3 25 MCG (1000 UT) 1 capsule Orally Once a day Active take 1 capsule by mo [facility] every week Vitamin D3 10 MCG (400 [...] meals. Active take 2 tablets by mo [facility] once at breakfast, then take 1 tablet by mouth twice daily at dinner metFORMIN HCl ER 500 MG 2 tablet with breakfast and 1 tablet with dinner Orally BID Pt could not tolerate IR metformin d/t g/i s/e Active omega 1-jbl-uva-fish oil (Fish OiL) 1,000 mg (120 mg-180 mg) capsule (1 source) take 2 capsules by mouth every other day omega 7-mje-vte-fish oil (Fish OiL) 1,000 mg (120 mg-180 [...] Daily, # 30 cap(s), Refills(s) 11, Pharmacy: [facility]/pharmacy #[id number], 168, cm, 02/25/22 9:50:00 EST, Height/Length Dosing, [...] 02/28/20 Status: Ordered take 1 tablet by [facility] every twenty-four hours Lisinopril 10 mg 1 tablet Orally daily Active [place] 7-Wrv-Kys-Fish Oil (Fish Oil) 1,000 mg (120 mg-180 mg) capsule (3 sources) Start: 05-24-2023 End: 06-24-2023 take 1 capsule by mouth once daily [place] 9-Jby-Qxv-Fish Oil (Fish Oil) 1,000 mg (120 mg-180 mg) capsule Discontinued 1 CAP PO Daily May 24, 2023 12:00am June 24, 2023 1:40pm Start: 05-24-2023 take 1 capsule by mo [facility] once daily [place] 8-Qnm-Zxd-Fish Oil (Fish Oil) 1,000 mg (120 mg-180 [...] sources) Long-term current use of insulin; 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: [long term care social worker (current) use of insulin] 05-24-2023 Episodic Other aftercare (6 sources) long term care social worker (current) use of insulin; 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: [long-term (current) use of insulin (Multi)] Onset: 02-23-2023 Episodic Other aftercare (4 sources) Long-term current use of drug therapy; 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: [Other superintendent [employer] (current) drug therapy] Episodic Other diseases of [...] prior to KM's return to schedule, once [facility] provides the [employer] days/times for July. Called patient, no answer. LM to return call to the office. From: Mayte Edmonds ( - hSawn Bob) To: Sara Bob MD; Sent: 07/22/2023 [...] that needed to be cancelled by a medical appointment scheduler and began yelling at the PAC, stating [...] a call. Patient voiced his understanding. Normal [facility] Automated urine specific gra vity by refractometryon 06-29-2023 Specific gravity Refractometry automated (U) [Rel density] 1.025 1.005-1.025 [facility] Bilirubin Auto test strip (U ) [Mass/Vol]on 06-29-2023 Bilirubin (U) [Mass/Vol] Negative NEGATIVE [facility] Color Auto (U)on 06-29-2023 Color (U) YELLOW YELLOW [facility] Glucose [Mass/volume] in Uri ne by Test stripon 06-29-2023 Glucose Test strip (U) [Mass/Vol] Negative NEGATIVE [facility] Ketones Auto test strip (U) [Mass/Vol]on 06-29-2023 Ketones (U) [Mass/Vol] Negative NEGATIVE [facility] - Microbiology an d Antimicrobial susceptibilityOrdered By: Dion Griggs on 06-29-2023 Bacteria identified Cx Nom (U) [facility] Protein Auto test strip (U) [Mass/Vol]on 06-29-2023 Protein (U) [Mass/Vol] Negative NEG/TRACE [facility] Specific gravity Auto test s trip (U) [Rel density]on 06-29-2023 Specific gravity (U) [Rel density] SL CLOUDY CLEAR [facility] Urine hemoglobin detection b y automated test stripon 06-29-2023 Hemoglobin Auto test strip Ql (U) LARGE Abnormal NEGATIVE [facility] Urine nitrite detection by a utomated test stripon 06-29-2023 Nitrite Auto test strip Ql (U) SMALL Abnormal NEGATIVE [facility] Nitrite Auto test strip Ql (U) Positive Abnormal NEGATIVE [facility] Urobilinogen Auto test strip (U) [Mass/Vol]on 06-29-2023 Urobilinogen Qn (U) 0.2 {Raeann'U}/dL 0.2-1.0 [facility] pH Auto test strip (U)on pH (U) 5.5 [pH] 5.0-9.0 [facility] Coding Summaryon 06-24-2023 Coding Summary HTMLBase 64 TgqfikpvETg8tEg+PGhlY WQ+RI3TDCNeT03cuUQxxV 4iE0HMQCrWNslzXIHQOLl JRqZjnzCtGM0wiPXbJKLl IC8+PK7xARGsOdvrpOAkh 5A9jMW6V10upc0kFYkjeH N4SSKiBjHvmnkac1jyoNx 6IDcuNmluOyBt BHNbhW80JNO1jS53Au79j IElzMAzx3aonFd4KfXkTI MbEYX6fXccLXrze0HzYKN cV56xwTLbi9A1 OTWfbYudtOMdQmYwqHI7p K5pDOweakknb7fecytcLl v1sl26nFEtv3K0sUW1Z2L ymfP0DLVlxELl HmbkiRPZgD6dmhzra7ppb irjCiTuRUUnOAc2YBp7UM MluOphYkQwKP67WYD4EWW oxnWkF6OzRBUg wOozKvC4n9J4Pj3QD4VBD ribT1NZZPYDOBwbpTX+PC 24no96B9YdYbwfQss4HGK sKLY0mBX3gE9s UFTwDLxzd7B1hBN4N2Mmm sZhkc2mw0esOBGvBPasW4 4lzIGkd9Z6XJOboYL0OQP htJrnDtVmiW90 Oyc+YYErzOlmt3YgQtvev 1qrd4qugNa2XvebUAFkga YauIbiBBK8r0QdEo2aLAT orVD2vMS1bA3n DkZvZcG5MQeeR458MgAha DCqAhbnT83sA2CneTT+PH VeYoj8FAWehIizJE5pI6Y hZGRpbmctbGVm mGhvAV7uXSWanjpzCSOyu B8wEGCfT7n2AxBnLrI2CR xgM4HmCAXrqnvcQo99nR4 uDjEsDmQ8PWst G8PgliT9EAMuyWFyNDdhF PN4G38zv9W1FEOvBIWaQH R2rIO3nR9zsEefgvmieKZ mdDsgdmVydGlj BFnoPGdwO808VYMcbHvtE kNvZGluZyBEYXRlOiAgMD QvMjUvMjAyNDwvdGQ+PHR pLAN7iXcqLVBn dQQbIGtxCw8sbWhqkAhyF J0uREJzwujrYDVjhG2pKM LodYAroEijYF7kSYQoyja kc414RvSwWCA7 IQQgoTFkN5SatF2rQsCmS KKaZGBxS7BjrKEfONycS8 83NPlqGuL8YJKwmbJeC5I sLWFsaWduOiB0 r5Z2Sp0Bv4NufdfbW5San VIjJsFtFpuoIPg9R2QdEt wvdHI+LA44KSVmNE63CKh 3DKO7oQygLCwj OOIoY0OorW1cDfMjHXNdO GRkOyc+PHRhYmxlIHdpZH RoPScxMDAlJyBzdHlsZT0 aAz2cCTKmVEYo rCfkkFGaPnSla3btEKSdY BtnVX4orTrzV9QjlNL9PD Pjq2x1Mg80G71gC6HnwYQ +EHHghLE4lLF6 tZ5nJhYxArP4WWlxX144V qJqwWKnEzsss0lmy4ehjJ j0HlK0TKInbaUiwCyrNZK 4e1MaOc36O09n IHdpZHRoPSIxNSUiIHZhb Ohttp9ktT1oFu9+PGNvbC F7oWJ0dG4wFvSaXcD7FPr iX556FxIrzLGl Wscqt2myt9oorBg6DpTaI CApncUntJbxPTJ9a0IfMk 81B2QnjOpac4ZcAlk8wg3 1pMNjl6N6eYM7 J7YfVUVfyxcqgDKguWnmH O0mVTWkhxgkQHWowY9dXI UnZ4v4VvEoVsV8QIygT6X vlxM5DPRgkAWt HDIikEXSeC4mauttg2mlr ftaLdJuWHHuFXi0SCy7LX RcmSobGnDzMPH2VgI5VMA 4xBSwyL6nwMce alngxV6qRoq+ZWU0kCZja XNCIN9vHdhowUM+PHRkIH H3yXlpKKhzQTZyrP2fRDZ jY8w2OwMmYwJ6 BJvjG1OjqvU0CRIrnQKyE ZCdnAZWsP3lmqzkm8ajlz lpZnEkJGHdQDw7VBo0BOW saWduOiBsZWZ0 QiG5GVZ9iWSuvA6edLscm wpzbX7oTme+QmlydGggRG Y0BOm7W4VcBvk6RNRthDy wFN2oiNPjGRun Gy9wcZphsUdtHB9oGLFvz lyop828VbVrb3mfUUBdpF ZfBKxaWKU6U42rs5F0MVZ bEVQlVWG1yPI1 nV7qsBpzuanrmPIimLtdc vIlsZhrSEmgKVybS749VQ JrtQvxEaDbRWn1E4GoOvt 9KDZydPneTM7g lOAmAYesDw0umNkgtCghS Q5nEJDypsrak952BzXba9 nqLSRbiBWkWIfoDZQ6L22 gw3M1LCShDJLz NVJ9tKZ3qD9flDiffrrjk GVmdDsgdmVydGljYWwtYW gdY627SXKwnJaxOxKcbRn 7E6ZgRwf3AYUq xOktHK3gnMSuESfjBj8ey DgqsOlmUU0tCKBymfldf3 00EdVxm2jwNLJsjZMbTGi hABH4X11ox9B0 DKPgPBUfNBT4bGJ5yW2md GlnbjogbGVmdDsgdmVydG emONwqIFbwF447EVXahPo nPlBhdGllbnQg AVaoFKn9K7QyAhedoIU+P N45UEPnGZ27oWIosTCkr2 bifRi1JpZmISEaOJG4aGw bCAtac4AgVFPo J23ceICav1O3BNQmaAgqs NJeTqXpjVT0hS0zYYkuuc mle8ulcpkiRvttt1lhgu0 7oB38J19bIDbh ZHRoPSIzMCUiIHZhbGlnb o6nxB2gXw1+ILXzwNW9cA W9tR0qLIOaIxD4HHvtC28 9InRvcCIvPjxj k5upf8dukCx4XaQ8NSCgc nHkmFnkDYB9a6EgGe78E5 9sIHdpZHRoPSIyMCUiIHZ wrEcyaz5wfV4r Ii8+LMIkhLP7aGY0eV1cP mVaQmZ6GYgcX047QsHtgT BwJgiaN29gN3WnkBX+PHR kAcy2HDDzjZxn DM8zsJKvVZmgPx4nKMI2I xAcCuAxTAlsT0HnEMBldy tjtqluzOC3UJVePQTlxT4 6Yx0vvXusMYFv yDMGpV4vyzwim2eenuebR cYxEHUxGJo6UHe3OUOiaR pcFeYvIKU9ReX5BER4nBX dnH9tgQboiwln tF7gC7QaUAGikugvEh52x B2jZzGvWfZ5AQucQdq+Tk 8QBFTBECQTIOIQDEPgD2t MTElBTTwvdGQ+ TIBnELQ2kXnjAHapGDNuu C9cKPZmW7t3HsXjKrN0XC buV2HyZVJhdoccJn92lL3 aBwTePdG9BCgw C7XlqrX5AEFuxUTqXRyzB TP6G85us0N8SMIcJVMiMK N4xXV4gG0bbWzgwpzupTH mdDsgdmVydGlj RWctQOvnW631JGFyiVknI zI7JvO0PlA8LWG7E4YtXw o4SZHntPctKJ3fbMJyFCb zBi4yyBjeaOvx TO2kGQUpqubyBIVnfC9jG ZCxwNCjyOkjDW2mAJUplu ogk880NlOpTRL4KQSiiZH wG6CdqG0bJrGp FSJdFFCfO3EgoQZaEHmcF 020UVzrVwB7YGZhmaLgD1 DyBQYphJfaMhZ9r6T1Fs2 3OCBZZWFyczwv dGQ+EYFzITN9nImxDFmtQ ATysF3dTCZtX1d8McSpQq B5LKriS8JeIJLjgyahUa6 0iX3vAfFjFgH3 UHorB6ScovC7ZREkeWJuB YssRUV0Z77md0Q7WNDpIY WwWKE5cQX4tO2ayMzyjko gbGVmdDsgdmVy kIziZOhlBNfcL251ZTVpm IzsHh4KITG4V1IcTvi6XD AenQccSV9dkAAnMQqkXd3 unYiufQygFB5o ZNYemuiaZJJwlQ0mANGrm TIgwVlnNI4yGEFrqlhtd9 65HrSaQKE4HXQjfJJtN5P rnH5mBlRcTBJp FZRbV0XzsOZlNWutB125J SxqZdJ7SSDdlpEjD3EjKD EnjSunMwL9p5E6Em5JBZw yE4BsF9SkuHib dGQ+FY42xa97X5WjIwrzJ jl0IICgXBD3hUP5fX8jRI NgRWzzg8E3cSO9B8TvqyC mff2mb0wnVLXf WWsrH80zlJPlr7R2SOPte UO7ZLSfwTqaWdKthA14Ef c+AIElnOfxv1OnIqnoh3g xg1xtdQq6IdXz HCYmftNiqTdnHZY8f6HrX a31Y56xDNxkGTDcYWYlEA SeNVRjgOhkfm4utL4iUg4 +CHCpbWZ4aWL0 aO5mTpEkQcY3SPnpB866P zXqkKRpZqnzp1hbt0nxiQ l8KvEkJWCeneGkrIuiZHT 9k5IiXp82B0Wv qJcpu5HuZcq4sd52bKZax 0T3tKI1M6RfKVEwvtailR DotAcvKW3iVOJoeypsNWD brI0cLIFbC6m5 QsRyFiC3STvmO0TbnhG0G HNocXQvPOJreFVWsQ2iea wsk5apunhtQkIaOWUqHVw 7YSx9RIEfzUpl XlHvDVU8BjA1OHL3nUMbj T6ipLtenqmkbK2fRxk+UG o8z6elsDFsSV4fkVC8ST6 4DX77zGTfp7D5 hQL0D4FsGTPonbujqqvua NH9JKVkOJGutX10Hv1dyJ tpGc4jDEAmMRS3XARhnHU hZ5CtfC1zGjCc MQKiVZNrF5DtgCWkRHvxY 519SRqwHsU2VWAdoiVgS4 UhPKDmoJifTbQ9b0T4Pm9 SVX07TX26JR14 iIOwz5Q6pER7H1FzVQBjp qdvwibldMV6VTPhSCGbvU 53Ef1yeOlbDa5cZVBuWAJ 3SSUkcRTpU3Lj yP3qOoUqBHHhPISnQ5Pgt IBlTIihN075GUcaBpJ4PU YdltQdO2HnUNEloUbbMeP 1l5G7Yz9WNp19 MQ01LH45tCHqr7E3oYR9I 9ByTJCjvispunmglKL9HA OsKNKchE78Ct2bxOyxOk7 yGILuBBS3RTNn jMJlZ9TmjO5eLhBdHPLdB DJlH1HenFGvLFdtU466DY mcMeN1QOAkxiRqO3OvEXA thMliReQ8w4S6 Lw7TPBgzwed0J2YzAqpyc HI+JI04LARvEB39qZDcjL Phu0cryMu2SzLrDHUdUKA 2zNpdRXcgz5Fx ZXI (more content not included)... [facility] HbA1c HPLC (Bld) [Mass fract ion]on 06-24-2023 HbA1c (Bld) [Mass fraction] 6.9 % [facility] No Panel Informationon 06-23 Bedside Glucose 103 [facility] Cholesterol in LDL Calc [Mas s/Vol]on 06-22-2023 Cholesterol in LDL [Mass/Vol] 40.2 mg/dL [facility] Comment on above: <100 mg/dl FNANLTO74 0-129 mg/dl NEAR OR ABOVE WMSVCKZ110-429 mg/dl BORDERLINE LHSX144-884 mg/dl HIGH>190 mg/dl VERY HIGH Cholesterol in VLDL Calc [Ma ss/Vol]on 06-22-2023 Cholesterol in VLDL [Mass/Vol] 12.8 mg/dL [facility] Estimated glomerular filtrat ion rate (GFR) non- Americanon 06-22-2023 GFR/1.73 sq M.predicted among non-blacks MDRD (S/P/Bld) [Vol rate/Area] mL/min/{1.73_m2} >=60 [facility] Globulin Calc (S) [Mass/Vol] on 06-22-2023 Globulin (S) [Mass/Vol] 3.6 g/dL [facility] - Chemistry and C hemistry - challengeon 06-22-2023 Albumin [Mass/Vol] 3.7 g/dL 3.4-5.0 [facility] ALP [Catalytic activity/Vol] 48 U/L 46-116 [facility] ALT [Catalytic activity/Vol] 34 U/L 16-63 [facility] AST [Catalytic activity/Vol] 20 U/L 15-37 [facility] Bilirubin [Mass/Vol] 0.5 mg/dL 0.2-1.0 [facility] Calcium [Mass/Vol] 9.2 mg/dL 8.5-10.1 [facility] Chloride [Moles/Vol] 106 mmol/L 98-107 [facility] Cholesterol [Mass/Vol] 102 mg/dL <=200 [facility] Cholesterol in HDL [Mass/Vol] 49 mg/dL 40-60 [facility] Comment on above: > or =60 mg/dl - LOW CARDIOVASCULAR RISK<40 mg/dl - HIGH CARDIOVASCULAR RISK CO2 [Moles/Vol] 26.8 mmol/L 21.0-32.0 [facility] Cobalamin (Vitamin B12) [Mass/Vol] 456.0 pg/mL 193.0-986.0 [facility] Creatinine [Mass/Vol] 1.04 mg/dL 0.70-1.30 [facility] GFR/1.73 sq M.predicted MDRD (S/P/Bld) [Vol rate/Area] mL/min/{1.73_m2} >=60 [facility] Glucose [Mass/Vol] 82 mg/dL 74-106 [facility] Potassium [Moles/Vol] 4.2 mmol/L 3.5-5.1 [facility] Protein [Mass/Vol] 7.3 g/dL 6.4-8.2 [facility] Sodium [Moles/Vol] 143 mmol/L 136-145 [facility] Triglyceride [Mass/Vol] 64 mg/dL <=150 [facility] Urea nitrogen [Mass/Vol] 19.0 mg/dL High 7.0-18.0 [facility] Urea nitrogen/Creatinine [Mass ratio] 18.3 mg/mg [facility] Microalbumin [Mass/volume] i n Urineon 06-22-2023 Albumin DL <= 20 mg/L (U) [Mass/Vol] 3.9 mg/dL <=30.0 [facility] No Panel Informationon 06-21 Urine Random Creatinine 136.06 mg/dL 20.0 0-300.0 0 [facility] Serum or plasma albumin/glob ulin mass ratioon 06-22-2023 Albumin/Globulin [Mass ratio] 1.0 {ratio} [facility] Serum or plasma anion gap de terminationon 06-22-2023 Anion gap [Moles/Vol] 14.4 mmol/L [facility] Serum or plasma total choles terol/high density lipoprotein (HDL) cholesterol mass ceferino 06-22-2023 Cholesterol.total/Celia sterol in HDL [Mass ratio] 2.1 {ratio} [facility] Comment on above: 3.3 - 4.4 LOW RISK4. 4 - 7.1 AVERAGE RISK7.1 - 11.0 MODERATE RISK>11.0 HIGH RISK Urine microalbumin/creatinin e mass ratioon 06-22-2023 Albumin/Creatinine DL <= 20 mg/L (U) [Mass ratio] 28.6 mg/g 0.0-29.9 [facility] Comment on above: NO MICROALBUMINURIA 0-29 MG/GCLINICAL MICROALBUMINURIA 30-300 MG/GMACROALBUMINURIA >300 MG/G Provider Orderson 06-18-2023 Provider Orders [id number]#1. 00[facility] Consent Formson 06-16-2023 Consent Forms [id number]#1.00 [facility] Inpatient Patient Summaryon 06-15-2023 Inpatient Patient Summary [facility] [address] [place] [address] Patient Discharge Instructions Name: JOSEPH ESCALONA : 1945 Patient Address: [address] [place] [address] Primary Care Provider: Name: Dion Griggs After you are discharged if you find you have any questions, please, call [phone] ext [phone] to speak to a nurse. Discharge Diagnosis: [...] problems; contact the [facility] 21/09 Crisis Hotline -Text 4HJRR rs [phone]. If you received any narcotics, sedation, or [...] business decisions or sign any legal documents [facility] would like to thank you for [...] healthy ch (more content not included)... Normal [facility] MAGR Intraoperative Recordon 06-15-2023 MAGR Intraoperative Record MAGR Intra-Op Record Summary Primary Physician: Ton Rhodes MD Finalized Date/Time: 06/15/23 13:21:43 Pt. Name: JOSEPH ESCALONA/Sex: 1945 MALE Med Rec #: [id number] Physician: Ton Rhodes MD Financial #: [id number] Pt. Type: D Room/Bed: / Admit/Disch: 06/15/23 [...] MD, Erica RN Adkins, Brittany E CSFA PUBLICATION SPECIALIST Role Performed Surgeon - Primary Mason Helper Husker Operator Time In 06/15/23 13:16:00 06/15/23 13:12:00 06/15/23 13:12:00 Time Out 06/15/23 13:21:00 06/15/23 13:21:00 06/15/23 13:21:00 Procedure Cystoscopy Local Cystoscopy Local Cystoscopy Local Last Modified By: Parisa Vargas RN, Erica RN Baumer, Erica RN 06/15/23 13:21:22 06/15/23 13:21:22 06/15/23 13:21:22 Entry 4 Case Attendee Jerri Reynolds PUBLICATION SPECIALIST Role Performed Scrub Personnel Time In 06/15/23 [...] 13:16:00 Participants Parisa Vargas RN, Angeles Rothman PUBLICATION SPECIALIST, Jerri Reynolds PUBLICATION SPECIALIST Last Modified By: Parisa Vargas RN 06/15/23 [...] Area (Im.270) Perin (more content not included)... [facility] MAGR Preoperative Recordon 0 06-15-2023 MAGR Preoperative Record MAGR Pre-Op Record Summary Primary Physician: Ton Rhodes MD Finalized Date/Time: 06/15/23 13:46:25 Pt. Name: JOSEPH ESCALONA /Sex: 1945 MALE Med Rec #: [id number] Physician: Ton Rhodes MD Financial #: [id number] Pt. Type: D Room/Bed: / Admit/Disch: 06/15/23 [...] Signed By: Guera Pascual RN 06/15/23 13:46 [facility] Patient Handouton 06-15-2023 Patient Handout [facility] ED Note-Physicianon 05-27-19 ED Note-Physician [id number] 3 [id number] .[id number] [facility] Automated epithelial cells c ount in urine sediment (number/area)on 05-24-2023 Epithelial cells Auto (Urine sed) [#/Area] RARE #/LPF NONE/RARE [facility] Automated leukocytes count i n urine sediment (number/area)on 05-24-2023 WBC Auto (Urine sed) [#/Area] 50-75 #/HPF 0-2 [facility] Automated urine specific gra vity by refractometryon 05-24-2023 Specific gravity Refractometry automated (U) [Rel density] >=1.030 1.005-1.025 [facility] Basophils Auto (Bld) [#/Vol] on 05-24-2023 Basophils (Bld) [#/Vol] 0.0 10 3/uL 0.0-0.1 [facility] Basophils/100 WBC Auto (Bld) on 05-24-2023 Basophils/100 WBC (Bld) 0.4 % 0.2-2.0 [facility] Bilirubin Auto test strip (U ) [Mass/Vol]on 05-24-2023 Bilirubin (U) [Mass/Vol] Negative NEGATIVE [facility] Casts typing in urine sedime nt by light microscopyon 05-24-2023 Casts LM Nom (Urine sed) NONE SEEN #/LPF NONE SEEN [facility] Color Auto (U)on 05-24-2023 Color (U) YELLOW YELLOW [facility] Eosinophils/100 WBC Auto (Bl d)on 05-24-2023 Eosinophils/100 WBC (Bld) 1.1 % 0.9-7.0 [facility] Erythrocyte distribution wid th Auto (RBC) [Ratio]on 05-24-2023 Erythrocyte distribution width (RBC) [Ratio] 13.0 % 11.0-15.0 [facility] Estimated glomerular filtrat ion rate (GFR) non- Americanon 05-24-2023 GFR/1.73 sq M.predicted among non-blacks MDRD (S/P/Bld) [Vol rate/Area] mL/min/{1.73_m2} >=60 [facility] Globulin Calc (S) [Mass/Vol] on 05-24-2023 Globulin (S) [Mass/Vol] 4.0 g/dL [facility] Hematocrit Auto (Bld) [Volum e fraction]on 05-24-2023 Hematocrit (Bld) [Volume fraction] 40.9 % 42.0-54.0 [facility] Hemoglobin [Mass/volume] in Bloodon 05-24-2023 Hemoglobin (Bld) [Mass/Vol] 13.6 g/dL 14.0-18.0 [facility] Ketones Auto test strip (U) [Mass/Vol]on 05-24-2023 Ketones (U) [Mass/Vol] TRACE mg/dL NEGATIVE [facility] - Chemistry and C hemistry - challengeon 05-24-2023 Albumin [Mass/Vol] 3.6 g/dL 3.4-5.0 [facility] ALP [Catalytic activity/Vol] 63 U/L 46-116 [facility] ALT [Catalytic activity/Vol] 24 U/L 16-63 [facility] AST [Catalytic activity/Vol] 15 U/L 15-37 [facility] Bilirubin [Mass/Vol] 0.6 mg/dL 0.2-1.0 [facility] Calcium [Mass/Vol] 9.0 mg/dL 8.5-10.1 [facility] Chloride [Moles/Vol] 102 mmol/L 98-107 [facility] CO2 [Moles/Vol] 26.5 mmol/L 21.0-32.0 [facility] Creatinine [Mass/Vol] 1.12 mg/dL 0.70-1.30 [facility] GFR/1.73 sq M.predicted MDRD (S/P/Bld) [Vol rate/Area] mL/min/{1.73_m2} >=60 [facility] Glucose [Mass/Vol] 213 mg/dL 74-106 [facility] Lactate [Moles/Vol] 1.6 mmol/L 0.4-2.0 [facility] Lipase [Catalytic activity/Vol] 23.0 U/L 16.0-77.0 [facility] Potassium [Moles/Vol] 3.6 mmol/L 3.5-5.1 [facility] Protein [Mass/Vol] 7.6 g/dL 6.4-8.2 [facility] Sodium [Moles/Vol] 140 mmol/L 136-145 [facility] Urea nitrogen [Mass/Vol] 15.0 mg/dL 7.0-18.0 [facility] Urea nitrogen/Creatinine [Mass ratio] 13.4 mg/mg [facility] Laboratory - Hematology and Cell countson 05-24-2023 Immature granulocytes/100 WBC (Bld) 0.6 % 0.0-0.5 [facility] Laboratory - Microbiology an d Antimicrobial susceptibilityon 05-24-2023 S. agalactiae Org specific cx Ql (Vag fld) Not detected NOT DETECTE [facility] Leukocytes [#/volume] correc bethany for nucleated erythrocytes in Blood by Automated counon 05-24-2023 WBC corrected for nucl RBC Auto (Bld) [#/Vol] 10.8 10 3/uL 4.0-11.0 [facility] Lymphocytes Auto (Bld) [#/Vo l]on 05-24-2023 Lymphocytes (Bld) [#/Vol] 0.8 10 3/uL 1.2-3.8 [facility] Lymphocytes/100 WBC Auto (Bl d)on 05-24-2023 Lymphocytes/100 WBC (Bld) 7.4 % 20.5-60.0 [facility] MCH Auto (RBC) [Entitic mass ]on 05-24-2023 MCH (RBC) [Entitic mass] 28.8 pg 25.9-34.0 [facility] MCHC Auto (RBC) [Mass/Vol]on 05-24-2023 MCHC (RBC) [Mass/Vol] 33.3 g/dL 29.9-35.2 [facility] MCV Auto (RBC) [Entitic vol] on 05-24-2023 MCV (RBC) [Entitic vol] 86.5 fL 80.0-94.0 [facility] Monocytes Auto (Bld) [#/Vol] on 05-24-2023 Monocytes (Bld) [#/Vol] 1.1 10 3/uL 0.3-0.8 [facility] Monocytes/100 WBC Auto (Bld) on 05-24-2023 Monocytes/100 WBC (Bld) 9.9 % 1.7-12.0 [facility] Mucus LM Ql (Urine sed)on Mucus Ql (Urine sed) MODERATE NONE SEEN [facility] Neutrophils Auto (Bld) [#/Vo l]on 05-24-2023 Neutrophils (Bld) [#/Vol] 8.8 10 3/uL 1.4-6.5 [facility] Neutrophils/100 WBC Auto (Bl d)on 05-24-2023 Neutrophils/100 WBC (Bld) 80.6 % 43.0-75.0 [facility] No Panel Informationon 05-23 Urine Culture Reflexed YES [facility] Urine Microscopic Review YES [facility] A.calcoaceticus-kavya ii cmplx PCR Not detected NOT DETECTE [facility] Bacteroides fragilis (PCR) Not detected NOT DETECTE [facility] Blood Culture Source blood [facility] Jhoana albicans (PCR) Not detected NOT DETECTE [facility] Jhoana auris (PCR) Not detected NOT DETECTE [facility] Jhoana glabrata (PCR) Not detected NOT DETECTE [facility] Jhoana krusei (PCR) Not detected NOT DETECTE [facility] Jhoana parapsilosis (PCR) Not detected NOT DETECTE [facility] Jhoana tropicalis (PCR) Not detected NOT DETECTE [facility] Crypto neoformans/gattii (PCR)(LAB) Not detected NOT DETECTE [facility] CTX-M ESBL (PCR) NOT APPLICABLE NOT DETECTE [facility] Enterobacter cloacae complex (PCR) Not detected NOT DETECTE [facility] Enterobacterales (PCR) Not detected NOT DETECTE [facility] Enterococcus faecalis PCR Not detected NOT DETECTE [facility] Enterococcus faecium PCR Not detected NOT DETECTE [facility] Escherichia coli Result Not detected NOT DETECT E [facility] Haemophilus influenzae DNA Not detected NOT DETECTE [facility] IMP (blaIMP) Carbap Res Gene (PCR) NOT APPLICABLE NOT DETECTE [facility] Klebsiella aerogenes (PCR) Not detected NOT DETECTE [facility] Klebsiella oxytoca (PCR) Not detected NOT DETECTE [facility] Klebsiella pneumoniae group (PCR) Not detected NOT DETECTE [facility] KPC (blaKPC) Detection (PCR) NOT APPLICABLE NOT DETECTE [facility] Listeria monocytogenes (PCR) Not detected NOT DETECTE [facility] MCR-1 Resistance Gene NOT APPLICABLE NOT DETECT E [facility] mecA/C & MREJ Antimicrob Resist Gen NOT APPLICABLE NOT DETECTE [facility] mecA/C-Methicillin Resistance Gene NOT APPLICABLE NOT DETECTE [facility] NDM (blaNDM) Detection (PCR) NOT APPLICABLE NOT DETECTE [facility] Neisseria meningitidis (PCR) Not detected NOT DETECTE [facility] Proteus species (PCR) Not detected NOT DETECTE [facility] Pseudomonas aeruginosa (PCR) Not detected NOT DETECTE [facility] Salmonella spp. (PCR) Not detected NOT DETECTE [facility] Serratia marcescens (PCR) Not detected NOT DETECTE [facility] Staphylococcus aureus (PCR)(LAB) Not detected NOT DETECTE [facility] Staphylococcus epidermidis (PCR) Not detected NOT DETECTE [facility] Staphylococcus lugdunensis (TEM-PCR Not detected NOT DETECTE [facility] Staphylococcus species (PCR) Not detected NOT DETECTE [facility] Stenotroph. maltophilia (PCR) Not detected NOT DETECTE [facility] Streptococcus pneumoniae (PCR) Not detected NOT DETECTE [facility] Streptococcus pyogenes (PCR)(LAB) Not detected NOT DETECTE [facility] Streptococcus species (PCR) Not detected NOT DETECTE [facility] Syn OXA-48-like Carb Res Gene (PCR) NOT APPLICABLE NOT DETECTE [facility] Regina/B-Vancomycin Resistance Genes NOT APPLICABLE NOT DETECTE [facility] VIM (blaVIM) Carbap Res Gene (PCR) NOT APPLICABLE NOT DETECTE [facility] Eosinophils # (Auto) 0.1 10 3/uL 0.0-0.7 [facility] Immature Granulocyte # (Auto) 0.06 10 3/uL 0.00-0.03 [facility] No Panel InformationOrdered By: Dion Griggs on 05-24-2023 Blood Culture 2 [facility] Blood Culture 1 [facility] Platelet mean volume Auto (B ld) [Entitic vol]on 05-24-2023 Platelet mean volume (Bld) [Entitic vol] 8.8 fL 9.5-13.5 [facility] Platelets Auto (Bld) [#/Vol] on 05-24-2023 Platelets (Bld) [#/Vol] 244 10 3/uL 150-450 [facility] Protein Auto test strip (U) [Mass/Vol]on 05-24-2023 Protein (U) [Mass/Vol] 30 mg/dL NEG/TRACE Fi [facility] RBC Auto (Bld) [#/Vol]on RBC (Bld) [#/Vol] 4.73 10 6/uL 4.70-6.10 [facility] Serum or plasma albumin/glob ulin mass ratioon 05-24-2023 Albumin/Globulin [Mass ratio] 0.9 {ratio} [facility] Serum or plasma anion gap de terminationon 05-24-2023 Anion gap [Moles/Vol] 15.1 mmol/L Fi [facility] Specific gravity Auto test s trip (U) [Rel density]on 05-24-2023 Specific gravity (U) [Rel density] CLEAR CLEAR [facility] Urine bacteria detection by automated methodon 05-24-2023 Bacteria Auto Ql (U) SMALL #/HPF NONE SEEN [facility] Urine glucose measurement by test strip (mass/volume)on 05-24-2023 Glucose Test strip (U) [Mass/Vol] >=1000 mg/dL NEGATIVE [facility] Urine hemoglobin detection b y automated test stripon 05-24-2023 Hemoglobin Auto test strip Ql (U) LARGE NEGATIVE [facility] Urine nitrite detection by a utomated test stripon 05-24-2023 Nitrite Auto test strip Ql (U) TRACE NEGATIVE [facility] Nitrite Auto test strip Ql (U) Negative NEGATIVE [facility] Urine sediment crystal ident ification by light microscopyon 05-24-2023 Crystals LM Nom (Urine sed) None Seen #/HPF None Seen [facility] Urine sediment leukocyte cou nt by microscopy (number/high power field)on 05-24-2023 WBC LM.HPF (Urine sed) [#/Area] 5-10 #/HPF NONE SEEN [facility] Urobilinogen Auto test strip (U) [Mass/Vol]on 05-24-2023 Urobilinogen Qn (U) 0.2 {Raeann'U}/dL 0.2-1.0 [facility] pH Auto test strip (U)on pH (U) 5.5 [pH] 5.0-9.0 [facility] Automated epithelial cells c ount in urine sediment (number/area)on 05-20-2023 Epithelial cells Auto (Urine sed) [#/Area] NONE SEEN #/LPF NONE/RARE [facility] Automated leukocytes count i n urine sediment (number/area)on 05-20-2023 WBC Auto (Urine sed) [#/Area] 5-10 #/HPF 0-2 [facility] Automated urine specific gra vity by refractometryon 05-20-2023 Specific gravity Refractometry automated (U) [Rel density] 1.025 1.005-1.025 [facility] Basophils Auto (Bld) [#/Vol] on 05-20-2023 Basophils (Bld) [#/Vol] 0.1 10 3/uL 0.0-0.1 [facility] Basophils/100 WBC Auto (Bld) on 05-20-2023 Basophils/100 WBC (Bld) 0.6 % 0.2-2.0 [facility] Bilirubin Auto test strip (U ) [Mass/Vol]on 05-20-2023 Bilirubin (U) [Mass/Vol] Negative NEGATIVE [facility] Casts typing in urine sedime nt by light microscopyon 05-20-2023 Casts LM Nom (Urine sed) NONE SEEN #/LPF NONE SEEN [facility] Color Auto (U)on 05-20-2023 Color (U) YELLOW YELLOW [facility] Eosinophils/100 WBC Auto (Bl d)on 05-20-2023 Eosinophils/100 WBC (Bld) 0.9 % 0.9-7.0 [facility] Erythrocyte distribution wid th Auto (RBC) [Ratio]on 05-20-2023 Erythrocyte distribution width (RBC) [Ratio] 13.2 % 11.0-15.0 [facility] Estimated glomerular filtrat ion rate (GFR) non- Americanon 05-20-2023 GFR/1.73 sq M.predicted among non-blacks MDRD (S/P/Bld) [Vol rate/Area] mL/min/{1.73_m2} >=60 [facility] Globulin Calc (S) [Mass/Vol] on 05-20-2023 Globulin (S) [Mass/Vol] 3.7 g/dL [facility] Hematocrit Auto (Bld) [Volum e fraction]on 05-20-2023 Hematocrit (Bld) [Volume fraction] 42.2 % 42.0-54.0 [facility] Hemoglobin [Mass/volume] in Bloodon 05-20-2023 Hemoglobin (Bld) [Mass/Vol] 14.2 g/dL 14.0-18.0 [facility] Ketones Auto test strip (U) [Mass/Vol]on 05-20-2023 Ketones (U) [Mass/Vol] TRACE mg/dL NEGATIVE [facility] Laboratory - Chemistry and C hemistry - challengeon 05-20-2023 Albumin [Mass/Vol] 3.8 g/dL 3.4-5.0 [facility] ALP [Catalytic activity/Vol] 55 U/L 46-116 [facility] ALT [Catalytic activity/Vol] 35 U/L 16-63 [facility] AST [Catalytic activity/Vol] 17 U/L 15-37 [facility] Bilirubin [Mass/Vol] 0.6 mg/dL 0.2-1.0 [facility] Calcium [Mass/Vol] 8.6 mg/dL 8.5-10.1 [facility] Chloride [Moles/Vol] 101 mmol/L 98-107 [facility] CO2 [Moles/Vol] 25.2 mmol/L 21.0-32.0 [facility] Creatinine [Mass/Vol] 1.02 mg/dL 0.70-1.30 [facility] GFR/1.73 sq M.predicted MDRD (S/P/Bld) [Vol rate/Area] mL/min/{1.73_m2} >=60 [facility] Glucose [Mass/Vol] 228 mg/dL 74-106 [facility] Lactate [Moles/Vol] 2.1 mmol/L 0.4-2.0 [facility] Lipase [Catalytic activity/Vol] 73.0 U/L 16.0-77.0 [facility] Potassium [Moles/Vol] 3.9 mmol/L 3.5-5.1 [facility] Protein [Mass/Vol] 7.5 g/dL 6.4-8.2 [facility] Sodium [Moles/Vol] 137 mmol/L 136-145 [facility] Urea nitrogen [Mass/Vol] 15.0 mg/dL 7.0-18.0 [facility] Urea nitrogen/Creatinine [Mass ratio] 14.7 mg/mg [facility] Laboratory - Hematology and Cell countson 05-20-2023 Immature granulocytes/100 WBC (Bld) 0.6 % 0.0-0.5 [facility] Laboratory - Microbiology an d Antimicrobial susceptibilityOrdered By: Dion Griggs on 05-20-2023 Bacteria identified Cx Nom (U) [facility] Leukocytes [#/volume] correc bethany for nucleated erythrocytes in Blood by Automated counon 05-20-2023 WBC corrected for nucl RBC Auto (Bld) [#/Vol] 9.9 10 3/uL 4.0-11.0 [facility] Lymphocytes Auto (Bld) [#/Vo l]on 05-20-2023 Lymphocytes (Bld) [#/Vol] 0.9 10 3/uL 1.2-3.8 [facility] Lymphocytes/100 WBC Auto (Bl d)on 05-20-2023 Lymphocytes/100 WBC (Bld) 9.1 % 20.5-60.0 [facility] MCH Auto (RBC) [Entitic mass ]on 05-20-2023 MCH (RBC) [Entitic mass] 29.2 pg 25.9-34.0 [facility] MCHC Auto (RBC) [Mass/Vol]on 05-20-2023 MCHC (RBC) [Mass/Vol] 33.6 g/dL 29.9-35.2 [facility] MCV Auto (RBC) [Entitic vol] on 05-20-2023 MCV (RBC) [Entitic vol] 86.8 fL 80.0-94.0 [facility] Monocytes Auto (Bld) [#/Vol] on 05-20-2023 Monocytes (Bld) [#/Vol] 0.9 10 3/uL 0.3-0.8 [facility] Monocytes/100 WBC Auto (Bld) on 05-20-2023 Monocytes/100 WBC (Bld) 9.1 % 1.7-12.0 [facility] Mucus LM Ql (Urine sed)on Mucus Ql (Urine sed) NONE SEEN NONE SEEN [facility] Neutrophils Auto (Bld) [#/Vo l]on 05-20-2023 Neutrophils (Bld) [#/Vol] 7.9 10 3/uL 1.4-6.5 [facility] Neutrophils/100 WBC Auto (Bl d)on 05-20-2023 Neutrophils/100 WBC (Bld) 79.7 % 43.0-75.0 [facility] No Panel InformationOrdered By: Dion Griggs on 05-20-2023 Blood Culture 2 [facility] Blood Culture 1 [facility] No Panel Informationon 05-19 Eosinophils # (Auto) 0.1 10 3/uL 0.0-0.7 [facility] Immature Granulocyte # (Auto) 0.06 10 3/uL 0.00-0.03 [facility] Urine Culture Reflexed YES [facility] Urine Microscopic Review YES [facility] Platelet mean volume Auto (B ld) [Entitic vol]on 05-20-2023 Platelet mean volume (Bld) [Entitic vol] 8.5 fL 9.5-13.5 [facility] Platelets Auto (Bld) [#/Vol] on 05-20-2023 Platelets (Bld) [#/Vol] 276 10 3/uL 150-450 [facility] Protein Auto test strip (U) [Mass/Vol]on 05-20-2023 Protein (U) [Mass/Vol] 30 mg/dL NEG/TRACE Fi [facility] RBC Auto (Bld) [#/Vol]on RBC (Bld) [#/Vol] 4.86 10 6/uL 4.70-6.10 [facility] Serum or plasma albumin/glob ulin mass ratioon 05-20-2023 Albumin/Globulin [Mass ratio] 1.0 {ratio} [facility] Serum or plasma anion gap de terminationon 05-20-2023 Anion gap [Moles/Vol] 14.7 [facility] Specific gravity Auto test s trip (U) [Rel density]on 05-20-2023 Specific gravity (U) [Rel density] CLEAR CLEAR [facility] Urine bacteria detection by automated methodon 05-20-2023 Bacteria Auto Ql (U) MODERATE #/HPF NONE SEEN [facility] Urine glucose measurement by test strip (mass/volume)on 05-20-2023 Glucose Test strip (U) [Mass/Vol] >=1000 mg/dL NEGATIVE [facility] Urine hemoglobin detection b y automated test stripon 05-20-2023 Hemoglobin Auto test strip Ql (U) LARGE NEGATIVE [facility] Urine nitrite detection by a utomated test stripon 05-20-2023 Nitrite Auto test strip Ql (U) TRACE NEGATIVE [facility] Nitrite Auto test strip Ql (U) Positive NEGATIVE [facility] Urine sediment crystal ident ification by light microscopyon 05-20-2023 Crystals LM Nom (Urine sed) None Seen #/HPF None Seen [facility] Urine sediment leukocyte cou nt by microscopy (number/high power field)on 05-20-2023 WBC LM.HPF (Urine sed) [#/Area] 5-10 #/HPF NONE SEEN [facility] Urobilinogen Auto test strip (U) [Mass/Vol]on 05-20-2023 Urobilinogen Qn (U) 0.2 {Raeann'U}/dL 0.2-1.0 [facility] pH Auto test strip (U)on pH (U) 5.5 [pH] 5.0-9.0 [facility] ED Note-Physicianon 05-10-19 ED Note-Physician [id number]#1 .00TIFF Normal [facility] Automated epithelial cells c ount in urine sediment (number/area)on 05-04-2023 Epithelial cells Auto (Urine sed) [#/Area] FEW #/LPF NONE/RARE [facility] Automated leukocytes count i n urine sediment (number/area)on 05-04-2023 WBC Auto (Urine sed) [#/Area] 5-10 #/HPF 0-2 [facility] Automated urine sediment negra cium oxalate crystal count by microscopy (number/high powon 05-04-2023 Calcium oxalate crystals LM.HPF (Urine sed) [#/Area] RARE [facility] Automated urine specific gra vity by refractometryon 05-04-2023 Specific gravity Refractometry automated (U) [Rel density] 1.025 1.005-1.025 [facility] Bilirubin Auto test strip (U ) [Mass/Vol]on 05-04-2023 Bilirubin (U) [Mass/Vol] Negative NEGATIVE [facility] Casts typing in urine sedime nt by light microscopyon 05-04-2023 Casts LM Nom (Urine sed) NONE SEEN #/LPF NONE SEEN [facility] Color Auto (U)on 05-04-2023 Color (U) LT. YELLOW YELLOW [facility] Ketones Auto test strip (U) [Mass/Vol]on 05-04-2023 Ketones (U) [Mass/Vol] TRACE mg/dL NEGATIVE [facility] Mucus LM Ql (Urine sed)on Mucus Ql (Urine sed) NONE SEEN NONE SEEN [facility] Protein Auto test strip (U) [Mass/Vol]on 05-04-2023 Protein (U) [Mass/Vol] 30 mg/dL NEG/[facility] Specific gravity Auto test s trip (U) [Rel density]on 05-04-2023 Specific gravity (U) [Rel density] CLEAR CLEAR [facility] Urine bacteria detection by automated methodon 05-04-2023 Bacteria Auto Ql (U) MODERATE #/HPF NONE SEEN [facility] Urine glucose measurement by test strip (mass/volume)on 05-04-2023 Glucose Test strip (U) [Mass/Vol] 100 mg/dL NEGATIVE [facility] Urine hemoglobin detection b y automated test stripon 05-04-2023 Hemoglobin Auto test strip Ql (U) LARGE NEGATIVE [facility] Urine nitrite detection by a utomated test stripon 05-04-2023 Nitrite Auto test strip Ql (U) LARGE NEGATIVE [facility] Nitrite Auto test strip Ql (U) Positive NEGATIVE [facility] Urine sediment crystal ident ification by light microscopyon 05-04-2023 Crystals LM Nom (Urine sed) Seen #/HPF None Seen [facility] Urine sediment leukocyte cou nt by microscopy (number/high power field)on 05-04-2023 WBC LM.HPF (Urine sed) [#/Area] 20-50 #/HPF NONE SEEN [facility] Urobilinogen Auto test strip (U) [Mass/Vol]on 05-04-2023 Urobilinogen Qn (U) 0.2 {Raeann'U}/dL 0.2-1.0 [facility] pH Auto test strip (U)on pH (U) 5.5 [pH] 5.0-9.0 [facility] Operative Reporton Operative Report [id number]# 1.00TIFF Normal [facility] Screenson 04-29-2023 Screens [id number]# 1.00TIFF Normal [facility] Screens [id number]# 1.00TIFF Normal [facility] Ambulatory Visit Summaryon 0 04-28-2023 Ambulatory [...] urodynamics Where: [address], [place] [address] [phone] Medications What How Much When Instructions Unchanged [...] or d (more content not included)... Normal [facility] Patient Educationon 04-28- 24 Patient Education Urology [...] including vitamins, herbs, eye drops, creams, and fhyc-ytp-fxafejc medicines. ? Whether you are or may [...] results be (more content not included)... Normal [facility] Urology Office/Clinic Noteon 04-28-2023 Urology Office/Clinic [...] prostate) P (more content not included)... Normal [facility] Comment on above: Result Comment: Elec tronically Signed By: Sara Bob MD\.br\Date and Time Signed: 04/28/23 11:12 EST\.br\Electronically Co-Signed By: Deborah Torres\.br\Date and Time Co-Signed: 04/28/23 10:44 EST Operative Reporton Operative Report [id number]# 1.00TIFF [facility] Consent for Procedure/Surger yon 03-18-2023 Consent for Procedure/Surgery [id number]#1 .00TIFF [facility] Screenson 02-03-2023 Screens [id number]#1 .00TIFF [facility] Screens [id number]#1 .00TIFF [facility] Ambulatory Visit Summaryon 1 04-05-2022 Ambulatory Visit Summary JOSEPH ESCALONA Nikita :1945 Visit Date:02/02/2023 Ambulatory Visit Instructions Your Diagnosis BPH with urinary obstruction Incomplete bladder emptying Screening PSA (prostate specific antigen) Asymptomatic microscopic hematuria Simple renal cyst Tests Performed Urnls Dip Stick Auto w/o Microscopy POC 39054 Your Care Team Attending Physician - BROOKS [...] Comments: sched cysto/TRUS Where: [address] [place] [address] [phone] Medications What How Much When Instructions Unchanged [...] Urnls Dip Stick Auto w/o Microscopy POC 77689 (02/02/2023) Bilirubin Urine Dipstick - Negative Blood Urine Dipstick - Trace-intact Glucose Urine Dipstick - 2+ 500 mg/dl Ketones Urine Dipstick - Negative Leukocytes Urine Dipstick - Negative Nitrite Urine Dipstick - Negative Protein Urine Dipstick - Negative Specific [place] Urine Dipstick - 1.025 Urine Appearance Urine [...] when yo (more content not included)... Normal [facility] Urology Office/Clinic Noteon 02-02-2023 Urology Office/Clinic [...] When Contact Information ANGELI GUY PA-C, URL [address] [place] [address] [phone] Additional Instructions: sched cysto/TRUS Patient Education Cystoscopy [...] mg oral (more content not included)... Normal [facility] Comment on above: Result Comment: Elec tronically Signed By: ANGELI GUY PA-C\.br\Date and Time Signed: 02/02/23 15:07 EST\.br\Electronically Co-Signed By: Deborah Torres\.br\Date and Time Co-Signed: 02/02/23 14:51 EST A1C HEMOGLOBINon 12-15-2022 HbA1c (Bld) [Mass fraction] 7.0 % [employer] Other Glucose - FINGER STICKon Glucose [Mass/Vol] 119 mg/dL [employer] [employer] Other HbA1c (Bld) [Mass fraction]o n 12-15-2022 A1C HEMOGLOBIN [employer] Other [place] 08-05-2022 Screens [id number]#1 .00CD:127 Normal [facility] Patient Educationon 08-05-19 Patient Education Urology [...] Follow these instructions at home: ? Take kdxd-tal-suejtte and prescription medicines only as told by [...] the medicine (more content not included)... Normal [facility] Urology Office/Clinic Noteon 08-04-2022 Urology Office/Clinic [...] E&M of Est. Patient Moderate 30-39 Min 57828 Measure Post Void residual urine and/or bladder capacity by US- non-imaging 96829 Urnls Dip Stick Auto w/o Microscopy POC 66990 2. Incomplete bladder emptying (R39.14: Feeling of incomplete bladder emptying) see #1. PVR: 05/21/20 - 98cc 02/25/21 - 156cc 02/25/22 - 250cc 08/04/22 - 143cc Ordered: E&M of Est. Patient Moderate 30-39 Min 29762 3. Prostatitis, chronic (N41.1: Chronic prostatitis) Hx of chronic prostatitis. Pt denies any infections since prior encounter, feels his infection frequency has lessened after TURP. Ordered: E&M of Est. Patient Moderate 30-39 Min 23099 4. Simple renal cyst (N28.1: Cyst of kidney, acquired) Found on [facility] done 01/2020, left 1.9cm. Follow PRN. Ordered: E&M of Est. Patient Moderate 30-39 Min 01488 5. Asymptomatic microscopic hematuria (R31.21: Asymptomatic microscopic hematuria) Chronic. UA today show trace intact only, no signs of infection. Ordered: E&M of Est. Patient Moderate 30-39 Min 02688 Follow-up With When Contact Information BROOKS ANTHONYANGELI, [...] 10:00:00) Ketones (more content not included)... Normal [facility] Comment on above: Result Comment: Elec [...] 3. Diabetes, [facility] recent A1c 7.2 4. Obesity. Encouraged [...] point out cardiac cause. Jaleesa Conn MD, [facility] Surgical History Problems History of Appendectomy [...] Recorded: 30Jun2022 11:20AM Heart Rate96, L Radial Onbjbgus942, LUE, Sitting Aoluejqqc31, LUE, Sitting Height5 ft 6 in Jzwgal599 lb BMI Knyiecyssl10.77 kg/m2 BSA Calculated2.01 Tobacco Useb) No PHQ-2 #1. Over the last 2 weeks have you felt down, depressed or hopeless? (If yes, answer PHQ-9 below)No PHQ-2 #2. Over the last 2 weeks have you felt little interest or pleasure (more content not included)... Normal [employer] [facility] Tobacco Screening.on 023 Adult depression screening assessment No [facility] [place] [address] DO Work Phone: Fall risk assessment a) No falls within the last year [facility] [address] 250 DO Work Phone: Tobacco use status CP b) No M [facility] [address] 250 DO Work Phone: A1C HEMOGLOBINon 06-15-2022 HbA1c (Bld) [Mass fraction] 7.1 % [employer] Other Glucose - FINGER STICKon Glucose [Mass/Vol] 133 mg/dL [employer] Other HbA1c (Bld) [Mass fraction]o n 06-15-2022 A1C HEMOGLOBIN [employer] Other LIPID PROFILEon 06-10-2022 CHOL-HDL RATIO NORM SEE BELOW Normal [facility] Comment on above: Result Comment: 3.3 - 4.4 LOW RISK 4.4 - 7.1 AVERAGE RISK 7.1 - 11.0 MODERATE RISK >11.0 HIGH RISK Performed By: #### C MP, LIPID #### [facility] [address] [address] [address] Kim Roper Cholesterol [Mass/Vol] 132 mg/dL Normal <=200 Th [facility] Comment on above: Performed By: #### C MP, LIPID #### [facility] [address] [address] [address] Kim Roper Cholesterol in HDL [Mass/Vol] 47 mg/dL Normal 40-60 [facility] Comment on above: Performed By: #### C MP, LIPID #### [facility] [address] [place] [address] Dr. Kim Roper Cholesterol in LDL [Mass/Vol] 63.2 mg/dL Normal [facility] Comment on above: Performed By: #### C MP, LIPID #### [facility] [address] [place] [address] Dr. Kim Roper Cholesterol.total/Celia sterol in HDL [Mass ratio] 2.8 {ratio} Normal [facility] Comment on above: Performed By: #### C MP, LIPID #### [facility] [address] [place] [address] Dr. Kim Roper HDL NORMAL > or = 60 mg/dl - LO W CARDIOVASCULAR RISK <40 mg/dl - HIGH CARDIOVASCULAR RISK Normal [facility] Comment on above: Performed By: #### C MP, LIPID #### [facility] [address] [place] [address] Dr. Kim Roper LDL CALC NORMAL SEE BELOW Normal [facility] Comment on above: Result Comment: <100 mg/dl OPTIMAL 100 - 129 mg/dl NEAR OR ABOVE OPTIMAL 130 - 159 mg/dl BORDERLINE HIGH 160 - 189 mg/dl HIGH >190 mg/dl VERY HIGH Performed By: #### C MP, LIPID #### [facility] [address] [place] [address] Dr. Kim Roper Triglyceride [Mass/Vol] 109 mg/dL Normal <=150 T [facility] Comment on above: Performed By: #### C MP, LIPID #### [facility] [address] [address] [address] Kim Roper VLDL CALC 21.8 mg/dL Normal [facility] Comment on above: Performed By: #### C MP, LIPID #### [facility] [address] [address] [address] Kim Roper MICROALB CREAT RATIO RANDOMo n 06-10-2022 mALB <1.3 Normal <=30.0 [facility] Comment on above: Performed By: #### M CRR #### [facility] [address] [address] [address] Kim Roper URINE CREAT 109.64 mg/dL Normal 20.00-300.0 0 [facility] Comment on above: Performed By: #### M CRR #### [facility] [address] [place] [address] Dr. Kim Roper PROF 14(COMP METB)on 023 Albumin [Mass/Vol] 3.7 g/dL Normal 3.4-5.0 [facility] Comment on above: Performed By: #### C MP, LIPID #### [facility] [address] [address] [address] Kim Roper Albumin/Globulin [Mass ratio] 1.0 {ratio} Normal [facility] Comment on above: Performed By: #### C MP, LIPID #### [facility] [address] [address] [address] Kim Roper ALP [Catalytic activity/Vol] 47 U/L Normal 46-116 [facility] Comment on above: Performed By: #### C MP, LIPID #### [facility] [address] [address] [address] Kim Roper ALT [Catalytic activity/Vol] 40 U/L Normal 16-63 [facility] Comment on above: Performed By: #### C MP, LIPID #### [facility] [address] [address] [address] Kim Roper Anion gap [Moles/Vol] 11.4 mmol/L Normal [facility] Comment on above: Performed By: #### C MP, LIPID #### [facility] [facility] [address] [address] [address] Kim Roper AST [Catalytic activity/Vol] 21 U/L Normal 15-37 [facility] Comment on above: Performed By: #### C MP, LIPID #### [facility] [address] [address] [address] Kim Roper Bilirubin [Mass/Vol] 0.5 mg/dL Normal 0.2-1.0 [facility] Comment on above: Performed By: #### C MP, LIPID #### [facility] [address] [address] [address] Kim Roper Calcium [Mass/Vol] 8.9 mg/dL Normal 8.5-10.1 [facility] Comment on above: Performed By: #### C MP, LIPID #### [facility] [address] [place] [address] Dr. Kim Roper Chloride [Moles/Vol] 105 mmol/L Normal 98-107 [facility] Comment on above: Performed By: #### C MP, LIPID #### [facility] [address] [address] [address] Kim Roper CO2 [Moles/Vol] 29.3 mmol/L Normal 21.0-32.0 [facility] Comment on above: Performed By: #### C MP, LIPID #### [facility] [address] [place] [address] Dr. Kim Roper Creatinine [Mass/Vol] 0.88 mg/dL Normal 0.70-1.30 [facility] Comment on above: Performed By: #### C MP, LIPID #### [facility] [address] [place] [address] Dr. Kim Roper EGFR-AF MACANESE >60 Normal >=60 [facility] Comment on above: Performed By: #### C MP, LIPID #### [facility] [address] [address] [address] Kim Roper EGFR-NON AF MACANESE >60 Normal >=60 [facility] Comment on above: Performed By: #### C MP, LIPID #### [facility] [address] [address] [address] Kim Roper Globulin (S) [Mass/Vol] 3.6 g/dL Normal [facility] Comment on above: Performed By: #### C MP, LIPID #### [facility] [address] [address] [address] Kim Roper Glucose [Mass/Vol] 160 mg/dL Critically high 74-106 [facility] Comment on above: Performed By: #### C MP, LIPID #### [facility] [address] [address] [address] Kim Roper Potassium [Moles/Vol] 4.7 mmol/L Normal 3.5-5.1 [facility] Comment on above: Performed By: #### C MP, LIPID #### [facility] [address] [address] [address] Kim Roper Protein [Mass/Vol] 7.3 g/dL Normal 6.4-8.2 [facility] Comment on above: Performed By: #### C MP, LIPID #### [facility] [address] [address] [address] Kim Roper Sodium [Moles/Vol] 141 mmol/L Normal 136-145 [facility] Comment on above: Performed By: #### C MP, LIPID #### [facility] [address] [address] [address] Kim Roper Urea nitrogen [Mass/Vol] 11.0 mg/dL Normal 7.0-18.0 [facility] Comment on above: Performed By: #### C MP, LIPID #### [facility] [address] [address] [address] Kim Roper Urea nitrogen/Creatinine [Mass ratio] 12.5 mg/mg Normal [facility] Comment on above: Performed By: #### C MP, LIPID #### [facility] [address] [place] [address] Dr. Kim Roper VITAMIN B12on 06-10-2022 Cobalamin (Vitamin B12) [Mass/Vol] 281.0 pg/mL Normal 193.0-986.0 [facility] Comment on above: Performed By: #### V ITB12 #### [facility] [address] [place], [place] [address] Dr. Kim Roper LIPID PROFILEon 06-20-2021 CHOL-HDL RATIO NORM SEE BELOW Normal [facility] Comment on above: Result Comment: 3.3 - 4.4 LOW RISK 4.4 - 7.1 AVERAGE RISK 7.1 - 11.0 MODERATE RISK >11.0 HIGH RISK Performed By: #### L IPID, CMP #### [facility] [address] [address] [address] Kim Roper Cholesterol [Mass/Vol] 114 mg/dL Normal <=200 [facility] Comment on above: Performed By: #### L IPID, CMP #### [facility] [address] [address] [address] Kmi Roper Cholesterol in HDL [Mass/Vol] 42 mg/dL Normal 40-60 [facility] Comment on above: Performed By: #### L IPID, CMP #### [facility] [address] [address] [address] Kim Roper Cholesterol in LDL [Mass/Vol] 45.6 mg/dL Normal [facility] Comment on above: Performed By: #### L IPID, CMP #### [facility] [id number] Kim Roper Cholesterol.total/Celia sterol in HDL [Mass ratio] 2.7 {ratio} Normal [facility] Comment on above: Performed By: #### L IPID, CMP #### [facility] [address] [address] [address] Kim Roper HDL NORMAL > or = 60 mg/dl - LO W CARDIOVASCULAR RISK <40 mg/dl - HIGH CARDIOVASCULAR RISK Normal [facility] Comment on above: Performed By: #### L IPID, CMP #### [facility] [address] [address] [address] Kim Roper LDL CALC NORMAL SEE BELOW Normal [facility] Comment on above: Result Comment: <100 mg/dl OPTIMAL 100 - 129 mg/dl NEAR OR ABOVE OPTIMAL 130 - 159 mg/dl BORDERLINE HIGH 160 - 189 mg/dl HIGH >190 mg/dl VERY HIGH Performed By: #### L IPID, CMP #### [facility] [address] [place] [address] Dr. Kim Roper Triglyceride [Mass/Vol] 132 mg/dL Normal <=150 [facility] Comment on above: Performed By: #### L IPID, CMP #### [facility] [address] [place] [address] Dr. Kim Roper VLDL CALC 26.4 mg/dL Normal [facility] Comment on above: Performed By: #### L IPID, CMP #### [facility] [address] [place] [address] Dr. Kim Roper MICROALB CREAT RATIO RANDOMo n 06-20-2021 mALB <1.3 Normal <=30.0 [facility] Comment on above: Performed By: #### M CRR #### [facility] [address] [place] [address] Dr. Kim Roepr URINE CREAT 126.66 mg/dL Normal 20.00-300.0 0 [facility] Comment on above: Performed By: #### M CRR #### [facility] [address] [place] [address] Dr. Kim Roper PROF 14(COMP METB)on 022 Albumin [Mass/Vol] 3.9 g/dL Normal 3.4-5.0 [facility] Comment on above: Performed By: #### L IPID, CMP #### [facility] [address] [place] [address] Dr. Kim Roper Albumin/Globulin [Mass ratio] 1.2 {ratio} Normal [facility] Comment on above: Performed By: #### L IPID, CMP #### [facility] [address] [place] [address] Dr. Kim Roper ALP [Catalytic activity/Vol] 46 U/L Normal 46-116 [facility] Comment on above: Performed By: #### L IPID, CMP #### [facility] [address] [place] [address] Dr. Kim Roper ALT [Catalytic activity/Vol] 32 U/L Normal 16-63 [facility] Comment on above: Performed By: #### L IPID, CMP #### [facility] [address] [place] [address] Dr. Kim Roper Anion gap [Moles/Vol] 10.9 mmol/L Normal [facility] Comment on above: Performed By: #### L IPID, CMP #### [facility] [address] [place] [address] Dr. Kim Roper AST [Catalytic activity/Vol] 17 U/L Normal 15-37 [facility] Comment on above: Performed By: #### L IPID, CMP #### [facility] [address] [place] [address] Dr. Kim Roper Bilirubin [Mass/Vol] 0.6 mg/dL Normal 0.2-1.3 [facility] Comment on above: Performed By: #### L IPID, CMP #### [facility] [address] [place] [address] Dr. Kim Roper Calcium [Mass/Vol] 8.7 mg/dL Normal 8.5-10.1 [facility] Comment on above: Performed By: #### L IPID, CMP #### [facility] [address] [place] [address] Dr. Kim Roper Chloride [Moles/Vol] 103 mmol/L Normal 98-107 [facility] Comment on above: Performed By: #### L IPID, CMP #### [facility] [address] [place] [address] Dr. Kim Roper CO2 [Moles/Vol] 30.4 mmol/L Critically high 22.0-30.0 [facility] Comment on above: Performed By: #### L IPID, CMP #### [facility] [address] [place] [address] Dr. Kim Roper Creatinine [Mass/Vol] 0.77 mg/dL Normal 0.66-1.25 [facility] Comment on above: Performed By: #### L IPID, CMP #### [facility] [address] [address] [address] Kim Roper EGFR-AF MACANESE >60 Normal >=60 [facility] Comment on above: Performed By: #### L IPID, CMP #### [facility] [address] [address] [address] Kim Roper EGFR-NON AF MACANESE >60 Normal >=60 [facility] Comment on above: Performed By: #### L IPID, CMP #### [facility] [address] [address] [address] Kim Roper Globulin (S) [Mass/Vol] 3.3 g/dL Normal [facility] Comment on above: Performed By: #### L IPID, CMP #### [facility] [address] [place] [address] Dr. Kim Roper Glucose [Mass/Vol] 88 mg/dL Normal 74-106 [facility] Comment on above: Performed By: #### L IPID, CMP #### [facility] [address] [place] [address] Dr. Kim Roper Potassium [Moles/Vol] 4.3 mmol/L Normal 3.4-5.0 [facility] Comment on above: Performed By: #### L IPID, CMP #### [facility] [address] [place] [address] Dr. Kim Roper Protein [Mass/Vol] 7.2 g/dL Normal 6.1-8.2 [facility] Comment on above: Performed By: #### L IPID, CMP #### [facility] [address] [place] [address] Dr. Kim Roper Sodium [Moles/Vol] 140 mmol/L Normal 137-[address] [facility] Comment on above: Performed By: #### L IPID, CMP #### [facility] [address] [place] [address] Dr. Kim Roper Urea nitrogen [Mass/Vol] 15.0 mg/dL Normal 7.0-18.0 [facility] Comment on above: Performed By: #### L IPID, CMP #### [facility] [address] [address] [address] Kim Roper Urea nitrogen/Creatinine [Mass ratio] 19.5 mg/mg Normal [facility] Comment on above: Performed By: #### L IPID, CMP #### [facility] [address] [address] [address] Kim Roper VITAMIN B12on 06-20-2021 Cobalamin (Vitamin B12) [Mass/Vol] 430.0 pg/mL Normal 239.0-931.0 [facility] Comment on above: Performed By: #### V ITB12 #### [facility] [address] [address] [address] Kim Roper Tobacco Screening.on 021 Fall risk assessment a) No falls within the last year [facility] [employer] 250 DO Work Phone: Tobacco use status CPHS b) No M [facility] DO Work Phone: GLUCOSE, FINGERSTICK-IN OFFI CEon 03-20-2020 Glucose [Mass/Vol] 155 mg/dL High 80-116 [facility] Comment on above: Performed By: #### Everett KILGORE I #### [facility] [address] [place] [address], BASIC METABOLIC PANELon 03-01 Anion gap [Moles/Vol] 14 mmol/L High 5-13 [facility] Comment on above: Performed By: #### DESI DALE #### [facility] [address] [place] [address], Calcium [Mass/Vol] 8.3 mg/dL Low 8.4-10.4 [facility] Comment on above: Performed By: #### DESI DALE #### [facility] [address] [place] [address], Chloride [Moles/Vol] 101 mmol/L Normal 97-111 [facility] Comment on above: Performed By: #### DESI DALE #### [facility] [address] [place] [address], CO2 [Moles/Vol] 24 mmol/L Normal 21-30 [facility] Comment on above: Performed By: #### DESI DALE #### [facility] [address] [place] [address], Creatinine [Mass/Vol] 0.73 mg/dL Low 0.80-1.30 [facility] Comment on above: Performed By: #### Dinesh THAPA CH8 #### [facility] [address] [place] [address], GFR/1.73 sq M.predicted MDRD (S/P/Bld) [Vol rate/Area] 91 mL/min/1.73sqm Normal >=60 [facility] Comment on above: Performed By: #### Dinesh THAPA CH8 #### [facility] [address] [place] [address], Glucose [Mass/Vol] 221 mg/dL High 80-116 [facility] Comment on above: Performed By: #### Dinesh THAPA CH8 #### [facility] [address] [place] [address], Potassium [Moles/Vol] 4.0 mmol/L Normal 3.3-5.3 [facility] Comment on above: Performed By: #### DESI DALE #### [facility] [address] [place] [address], Sodium [Moles/Vol] 135 mmol/L Normal 135-148 [facility] Comment on above: Performed By: #### DESI DALE #### [facility] [address] [place] [address], Urea nitrogen [Mass/Vol] 8 mg/dL Normal 8-22 [facility] Comment on above: Performed By: #### DESI DALE #### [facility] [address] [place] [address], CBC WITH DIFFERENTIALon 03-01 Basophils (Bld) [#/Vol] 0.07 10*3/uL Normal 0.00-0.20 [facility] Comment on above: Performed By: #### T ROP I #### [facility] [address] [place], [place], Basophils/100 WBC (Bld) 0.7 % Normal <=1.9 [facility] Comment on above: Performed By: #### T ROP I #### [facility] [address] [place], [place], Eosinophils (Bld) [#/Vol] 0.02 10*3/uL Normal 0.00-0.70 [facility] Comment on above: Performed By: #### T ROP I #### [facility] [address] [place], [place], Eosinophils/100 WBC (Bld) 0.2 % Normal 0.1-4.0 [facility] Comment on above: Performed By: #### T ROP I #### [facility] [address] [place], [place], Erythrocyte distribution width (RBC) [Ratio] 14.9 % High 11.5-14.5 [facility] Comment on above: Performed By: #### T ROP I #### [facility] [address] [place], [place], Hematocrit (Bld) [Volume fraction] 41.2 % Normal 41.0-53.0 [facility] Comment on above: Performed By: #### T ROP I #### [facility] [address] [place], [place], Hemoglobin (Bld) [Mass/Vol] 14.0 g/dL Normal 13.9-16.3 [facility] Comment on above: Performed By: #### T ROP I #### [facility] [address] [place], [place], Lymphocytes (Bld) [#/Vol] 0.59 10*3/uL Low 1.00-4.80 [facility] Comment on above: Performed By: #### T ROP I #### [facility] [address] [place], [place], Lymphocytes/100 WBC (Bld) 6.1 % Low 24.0-44.0 [facility] Comment on above: Performed By: #### T ROP I #### [facility] [address] [place] [address], MCH (RBC) [Entitic mass] 29.5 pg Normal 26.0-34.0 [facility] Comment on above: Performed By: #### T ROP I #### [facility] [address] [place] [address], MCHC (RBC) [Mass/Vol] 34.1 g/dL Normal 32.0-35.9 [facility] Comment on above: Performed By: #### T ROP I #### [facility] [address] [place] [address], MCV (RBC) [Entitic vol] 87 fL Normal 80-100 T [facility] Comment on above: Performed By: #### T ROP I #### [facility] [address] [place] [address], Monocytes (Bld) [#/Vol] 0.61 10*3/uL Normal 0.20-1.00 [facility] Comment on above: Performed By: #### T ROP I #### [facility] [address] [place] [address], Monocytes (Bld) [#/Vol] 18 10*3/uL Normal <=20 [facility] Comment on above: Performed By: #### T ROP I #### [facility] [address] [place] [address], Monocytes/100 WBC (Bld) 6.3 % Normal 2.0-11.0 [facility] Comment on above: Performed By: #### T ROP I #### [facility] [address] [place] [address], Neutrophils (Bld) [#/Vol] 8.39 10*3/uL High 1.50-8.00 [facility] Comment on above: Performed By: #### T ROP I #### [facility] [address] [place] [address], Neutrophils/100 WBC (Bld) 86.7 % High 31.0-76.0 [facility] Comment on above: Performed By: #### T ROP I #### [facility] [address] [place], [place], Nucleated RBC (Bld) [#/Vol] 0.0 10*3/uL Normal [facility] Comment on above: Performed By: #### T ROP I #### [facility] [address] [place], [place], Nucleated RBC (Bld) [#/Vol] 0.00 10*3/uL Normal [facility] Comment on above: Performed By: #### T ROP I #### [facility] [address] [place], [place], Platelet mean volume (Bld) [Entitic vol] 6.4 fL Low 7.5-11.2 [facility] Comment on above: Performed By: #### T ROP I #### [facility] [address] [place], [place], Platelets (Bld) [#/Vol] 221 10*3/uL Normal 150-400 [facility] Comment on above: Performed By: #### T ROP I #### [facility] [address] [place], [place], RBC (Bld) [#/Vol] 4.76 10*6/uL Normal 4.50-5.90 [facility] Comment on above: Performed By: #### T ROP I #### [facility] [address] [place], [place], WBC (Bld) [#/Vol] 9.7 10*3/uL Normal 4.5-11.5 [facility] Comment on above: Performed By: #### T ROP I #### [facility] [address] [place], [place], CT HEAD W/O CONTRASTon 03-19 CT [...] ALANIS, CH8 #### [facility] [address] [place], [place], HIV1 HIV2 AGAB SCRNon 2020 HIV AG-AB SCREEN Non-Reactive Normal Non-Reactiv e [facility] Comment on above: Order Comment: HIV Information: ???[place] Rev. code 3701.243(E): This information has been [...] agab scrn #### [facility] [address] [place], [place], LACTIC ACIDon 03-19-2020 Lactate [Moles/Vol] 1.5 mmol/L Normal 0.5-2.0 [facility] Comment on above: Performed By: #### L ACT #### [facility] [address] [place], [place], PARTIAL THROMBOPLASTIN TIMEo n 03-19-2020 aPTT Coag (Bld) [Time] 29 s Normal 25-37 Th [facility] Comment on above: Performed By: #### P T, APTT #### [facility] [address] [place], [place], PROTHROMBIN TIME AND INRon 0 03-19-2020 INR Coag (PPP) [Relative time] 0.96 {INR} Normal 0.90-1.10 [facility] Comment on above: Performed By: #### P T, APTT #### [facility] [address] [place], [place], PT Coag (PPP) [Time] 10.9 s Normal 9.7-12.9 [facility] Comment on above: Performed By: #### P T, APTT #### [facility] [address] [place] [address], TROPONIN Ion 03-19-2020 Troponin I.cardiac [Mass/Vol] ng/mL Normal <0.120 [facility] Comment on above: Result Comment: Rang [...] Performed By: #### T ROP I #### [facility] [address] [place], [place], Troponin I.cardiac [Mass/Vol] ng/mL Normal <0.120 [facility] Comment on above: Result Comment: Rang [...] T ROP I #### [facility] [address] [place] [address], Troponin I.cardiac [Mass/Vol] ng/mL Normal <0.120 The [...] T ROP I #### [facility] [address] [place] [address], TYPE AND SCREENon 03-19-2020 ABO and Rh group Nom (Bld) No Previous Results Normal [facility] Comment on above: Performed By: #### T S #### [facility] [address] [place] [address], ABO and Rh group Nom (Bld) A Positive Normal [facility] Comment on above: Performed By: #### T S #### [facility] [address] [place] [address], ABSC INT Negative Normal [facility] Comment on above: Performed By: #### T S #### [facility] [address] [place] [address], [facility] CARDIAC STRESS/REST INJE CTIONon 08-15-2019 [facility] CARDIAC STRESS/REST INJECTION Patient Name: JOSEPH ESCALONA STUDY: MYOCARDIAL PERFUSION STRESS TEST WITH LEXISCAN Performing facility: [facility], [address] [place] [address], [address], [place] [address] [facility] Provider: Jaleesa Conn MD, FACC PCP: Dr. Zia GRIGGS Supervising provider: Chinedu Mcgarry MD, FACC INDICATION: ASCVD DM Hyperlipidemia HISTORY: Gender: M; Age: 74 y/o ; Height: 167.64 cm; Weight: 92.5659491 kg. CAD; Diabetes; HTN; Abnormal EKG; High Cholesterol; Quit smoking years ago. Cardiac catheterization 2009. COMPARISON: Previous nuclear testing completed 2009 at [place]. ACCESSION NUMBER(S): [id number]; [id number]; [id number] ORDERING CLINICIAN: JALEESA CONN TECHNIQUE: ONE DAY [...] Electronically signed by: CLARE FONSECA MD Normal [facility] Vital Signs Date Time Vital Sign Value Performing Clinician Facility 09-06-2023 10: Body height 167.64 cm [facility] 09-06-2023 10: Body mass index (BMI) [Ratio] 32 kg/m2 [facility] 09-06-2023 10:04-0400 Body weight 89.98 kg [facility] 09-06-2023 10:04-0400 Diastolic blood pressure 76 mm[Hg] [facility] 09-06-2023 10:04-0400 Heart rate 86 /min [facility] 09-06-2023 10:04-0400 Respiratory rate 12 /min [facility] 09-06-2023 10:04-0400 Systolic blood pressure 138 mm[Hg] [facility] 06-30-2023 11:18-0400 Diastolic blood pressure 80 mm[Hg] Jaleesa Conn MD Work Phone: [facility] 06-30-2023 11:18-0400 Systolic blood pressure 136 mm[Hg] Jaleesa Conn MD Work Phone: [facility] 06-30-2023 11:00-0400 Body height 167.6 cm Jaleesa Conn MD Work Phone: [facility] 06-30-2023 11:00-0400 Body mass index (BMI) [Ratio] 32.28 kg/m2 Jaleesa Conn MD Work Phone: [facility] 06-30-2023 11:00-0400 Body weight 90.72 kg Jaleesa Conn MD Work Phone: [facility] 06-30-2023 11:00-0400 Heart rate 76 /min Jaleesa Conn MD Work Phone: [facility] 06-24-2023 13:33-0400 Body height 167.64 cm [facility] 06-24-2023 13:33-0400 Body mass index (BMI) [Ratio] 32.3 kg/m2 [facility] 06-24-2023 13:33-0400 Body weight 90.71 kg [facility] 06-24-2023 13:33-0400 Diastolic blood pressure 71 mm[Hg] [facility] 06-24-2023 13:33-0400 Heart rate 78 /min [facility] 06-24-2023 13:33-0400 Respiratory rate 18 /min [facility] 06-24-2023 13:33-0400 SaO2% (BldA) [Mass fraction] 97 % [facility] 06-24-2023 13:33-0400 Systolic blood pressure 142 mm[Hg] [facility] 05-24-2023 11:56-0400 Body height 167.64 cm [facility] 05-24-2023 11:56-0400 Body mass index (BMI) [Ratio] 32.3 kg/m2 [facility] 05-24-2023 11:56-0400 Body weight 90.71 kg [facility] 05-24-2023 11:56-0400 Diastolic blood pressure 83 mm[Hg] [facility] 05-24-2023 11:56-0400 Heart rate 90 /min [facility] 05-24-2023 11:56-0400 Respiratory rate 16 /min [facility] 05-24-2023 11:56-0400 Systolic blood pressure 172 mm[Hg] [facility] 04-28-2023 10:03-0500 Blood Pressure Location Sara Lue [facility] 04-28-2023 10:03-0500 Diastolic blood pressure 82 mm[Hg] Sara Lue [facility] 04-28-2023 10:03-0500 Systolic blood pressure 142 mm[Hg] Sara Lue [facility] 03-17-2023 09:00-0500 Body height 167.64 cm Dion Ball Other [facility] 03-17-2023 09:00-0500 Body mass index (BMI) [Ratio] 33.41 kg/m2 Dion Ball Other [employer] Other 03-17-2023 09:00-0500 Body weight 93.9 kg Dion Ball [address] [facility] [employer] Other 03-17-2023 09:00-0500 Body weight 93.89 kg [facility] 03-17-2023 09:00-0500 Diastolic blood pressure 80 mm[Hg] Dion Ball Other [facility] 03-17-2023 09:00-0500 Respiratory rate 12 /min Dion Ball Other [facility] [employer] Other 03-17-2023 09:00-0500 Systolic blood pressure 132 mm[Hg] Dion Ball Other [facility] 02-02-2023 14:05-0500 Blood Pressure Location ANGELI BROOKS [facility] 02-02-2023 14:05-0500 Diastolic blood pressure 74 mm[Hg] ANGELI BROOKS [facility] 02-02-2023 14:05-0500 Heart rate 82 /min ANGELI BROOKS [facility] 02-02-2023 14:05-0500 Respiratory rate 16 /min ANGELI BROOKS [facility] 02-02-2023 14:05-0500 Systolic blood pressure 132 mm[Hg] ANGELI BROOKS [facility] 12-15-2022 13:00-0400 Body height 167.64 cm [facility] [facility] Other [facility] [employer] Other 12-15-2022 13:00-0400 Body mass index (BMI) [Ratio] 33.23 kg/m2 TondrMyowsus Other [facility] [employer] Other 12-15-2022 13:00-0400 Body weight 93.4 kg Tondra Mapus Other [employer] Other 12-15-2022 13:00-0400 Diastolic blood pressure 87 mm[Hg] Tondra Mapus Other [employer] Other 12-15-2022 13:00-0400 Respiratory rate 18 /min Tondra Mapus Other [employer] Other 12-15-2022 13:00-0400 SaO2% (BldA) [Mass fraction] 97 % Tondra Mapus Other [employer] Other 12-15-2022 13:00-0400 Systolic blood pressure 154 mm[Hg] Tondra Mapus Other [employer] Other 09-02-2022 10:30-0400 Body height 167.64 cm Dion Ball Other [employer] Other 09-02-2022 10:30-0400 Body mass index (BMI) [Ratio] 32.89 kg/m2 Dion Ball Other [employer] Other 09-02-2022 10:30-0400 Body weight 92.44 kg Dion Ball Other [employer] Other 09-02-2022 10:30-0400 Diastolic blood pressure 80 mm[Hg] Dion Ball Other [employer] Other 09-02-2022 10:30-0400 Respiratory rate 12 /min Dion Ball Other [employer] Other 09-02-2022 10:30-0400 Systolic blood pressure 130 mm[Hg] Dion Ball Other [employer] Other 08-20-2022 10:45-0400 Body height 167.64 cm Dion Ball Other [employer] Other 08-20-2022 10:45-0400 Body mass index (BMI) [Ratio] 32.47 kg/m2 Dion Ball Other [employer] Other 08-20-2022 10:45-0400 Body weight 91.26 kg Dion Ball Other [employer] Other 08-20-2022 10:45-0400 Diastolic blood pressure 77 mm[Hg] Dion Ball Other [employer] Other 08-20-2022 10:45-0400 Respiratory rate 12 /min Dion Ball Other [employer] Other 08-20-2022 10:45-0400 Systolic blood pressure 150 mm[Hg] Dion Ball Other [employer] Other 08-04-2022 10:02-0400 Blood Pressure Location ANGELI BROOKS [facility] 08-04-2022 10:02-0400 Diastolic blood pressure 78 mm[Hg] ANGELI BROOKS [facility] 08-04-2022 10:02-0400 Heart rate 68 /min ANGELI BROOKS [facility] 08-04-2022 10:02-0400 Respiratory rate 16 /min ANGELI BROOKS [facility] 08-04-2022 10:02-0400 Systolic blood pressure 130 mm[Hg] ANGELI GUY [facility] 07-23-2022 11:09-0400 Diastolic blood pressure 78 mm[Hg] Dion E Ball Work Phone: [facility] 250 DO Work Phone: 07-23-2022 11:09-0400 Systolic blood pressure 138 mm[Hg] Dion E Ball Work Phone: [facility] DO Work Phone: 07-23-2022 11:06-0400 Body height 167.64 cm Dion E Ball Work Phone: [facility] DO Work Phone: 07-23-2022 11:06-0400 Body mass index (BMI) [Ratio] 32.77 kg/m2 Dion E Ball Work Phone: [facility] [facility] DO Work Phone: 07-23-2022 11:06-0400 Body surface area Derived from formula 2.01 m2 Dion E Ball Work Phone: [facility] DO Work Phone: 07-23-2022 11:06-0400 Body weight 92.08 kg Dion E Ball Work Phone: [facility] DO Work Phone: 07-23-2022 11:06-0400 Diastolic blood pressure 80 mm[Hg] Dion E Ball Work Phone: [facility] DO Work Phone: 07-23-2022 11:06-0400 Heart rate 90 /min Dion E Ball Work Phone: [facility] DO Work Phone: 07-23-2022 11:06-0400 Systolic blood pressure 140 mm[Hg] Dion Montiel Ball Work Phone: [facility] [employer] 250 DO Work Phone: 06-30-2022 11:20-0400 Body height 167.64 cm Dion Montiel Ball Work Phone: [facility] [employer] DO Work Phone: 06-30-2022 11:20-0400 Body mass index (BMI) [Ratio] 32.77 kg/m2 Dion Montiel Ball Work Phone: [facility] [employer] [facility] DO Work Phone: 06-30-2022 11:20-0400 Body surface area Derived from formula 2.01 m2 Dion oMntiel Ball Work Phone: [facility] [employer] 250 DO Work Phone: 06-30-2022 11:20-0400 Body weight 92.08 kg Dion Montiel Ball Work Phone: [facility] [employer] 250 DO Work Phone: 06-30-2022 11:20-0400 Diastolic blood pressure 88 mm[Hg] Dion Montiel Ball Work Phone: [facility] [employer] DO Work Phone: 06-30-2022 11:20-0400 Heart rate 96 /min Dion Montiel Ball Work Phone: [facility] [employer] 250 DO Work Phone: 06-30-2022 11:20-0400 Systolic blood pressure 158 mm[Hg] Dion Montiel Ball Work Phone: [facility] [employer] [facility] DO Work Phone: 06-15-2022 14:30-0400 Body height 167.64 cm Ynes Jain Other [employer] Other 06-15-2022 14:30-0400 Body mass index (BMI) [Ratio] 33.18 kg/m2 Tondra Mapus Other [employer] Other 06-15-2022 14:30-0400 Body weight 93.26 kg Tondra Mapus Other [employer] Other 06-15-2022 14:30-0400 Diastolic blood pressure 85 mm[Hg] Tondra Mapus Other [employer] Other 06-15-2022 14:30-0400 Respiratory rate 18 /min Tondra Mapus Other [employer] Other 06-15-2022 14:30-0400 SaO2% (BldA) [Mass fraction] 95 % Tondra Mapus Other [employer] Other 06-15-2022 14:30-0400 Systolic blood pressure 151 mm[Hg] Tondra Mapus Other [employer] Other 02-25-2022 09:34-0500 Blood Pressure Location ANGELITHERESA GUY [facility] 02-25-2022 09:34-0500 Diastolic blood pressure 82 mm[Hg] ANGELI BROOKS [facility] 02-25-2022 09:34-0500 Heart rate 68 /min ANGELI BROOKS [facility] 02-25-2022 09:34-0500 Respiratory rate 16 /min ANGELI BROOKS [facility] 02-25-2022 09:34-0500 Systolic blood pressure 138 mm[Hg] ANGELI UGY [facility] 08-26-2021 10:43-0400 Blood Pressure Location Kailee Mckinney Jr. [facility] 08-26-2021 10:43-0400 Diastolic blood pressure 76 mm[Hg] Kailee Mckinney Jr. [facility] 08-26-2021 10:43-0400 Heart rate 85 /min Kailee Mckinney Jr. [facility] 08-26-2021 10:43-0400 Respiratory rate 16 /min Kailee Mckinney Jr. [facility] 08-26-2021 10:43-0400 Systolic blood pressure 138 mm[Hg] Kailee Mckinney Jr. [facility] 01-06-2021 14:59-0500 Body height 167.64 cm Dion Griggs Work Phone: [facility] DO Work Phone: 01-06-2021 14:59-0500 Body mass index (BMI) [Ratio] 32.6 kg/m2 Dion Griggs Work Phone: [facility] 250 DO Work Phone: 01-06-2021 14:59-0500 Body surface area Derived from formula 2.01 m2 Dion Griggs Work Phone: [facility] 250 DO Work Phone: 01-06-2021 14:59-0500 Body weight 91.63 kg Dion Griggs Work Phone: [facility] 250 DO Work Phone: 01-06-2021 14:59-0500 Diastolic blood pressure 76 mm[Hg] Dion Griggs Work Phone: [facility] 250 DO Work Phone: 01-06-2021 14:59-0500 Heart rate 86 /min Dion Griggs Work Phone: [facility] [facility] DO Work Phone: 01-06-2021 14:59-0500 Systolic blood pressure 128 mm[Hg] Dion Griggs Work Phone: [facility] DO Work Phone: Encounters Encounter Date Encounter Type Care Provider Facility Start: 09-06-2023 End: 09-06-2023 ambulatory [facility] Work Phone: Start: 09-06-2023 End: 09-06-2023 Patient encounter procedure [facility] Work Phone: Start: 07-13-2023 End: 07-13-2023 Patient encounter procedure [facility] Work Phone: Start: 06-30-2023 End: 06-30-2023 Office outpatient visit 25 minutes Jaleeas Conn MD Work Phone: [facility] Comment on above: Essential hypertensi on, benign (Primary Dx); ASCVD (arteriosclerotic cardiovascular disease); Mixed hyperlipidemia; Type 2 diabetes mellitus without complication, with long-term current use of insulin (Multi); Former smoker; BMI 32.0-32.9,adult; Obstructive sleep apnea syndrome; Urinary retention Start: 06-30-2023 End: 06-30-2023 ambulatory JALEESA CONN [facility] Start: 06-29-2023 Non-patient / Non-visit [facility] Work Phone: Start: 06-24-2023 End: 06-24-2023 ambulatory [facility] Work Phone: Start: 06-24-2023 End: 06-24-2023 Patient encounter procedure [facility] Work Phone: Start: 06-22-2023 Non-patient / Non-visit [facility] Work Phone: Start: 06-15-2023 End: 06-15-2023 ambulatory Ton Rhodes Facility:[facility] Start: 06-08-2023 ambulatory ANGELI GUY Facili ty:[facility] Start: 05-24-2023 End: 05-24-2023 ambulatory [facility] Work Phone: Start: 05-24-2023 End: 05-24-2023 Patient encounter procedure [facility] Work Phone: Start: 05-20-2023 Non-patient / Non-visit [facility] Work Phone: Start: 05-10-2023 End: 06-22-2023 Pre-admission assessment Renato MCCABE [facility] Start: 05-05-2023 ambulatory ANGELI GUY Facili ty:[facility] Start: 05-04-2023 Non-patient / Non-visit [facility] Work Phone: Start: 04-28-2023 End: 04-29-2023 ambulatory Sara Bob Facility:[facility] Start: 04-28-2023 End: 04-28-2023 Patient encounter procedure Sara Bob [facility] Start: 03-26-2023 End: 03-27-2023 ambulatory Sara Bob Facility:[facility] Start: 03-26-2023 End: 03-26-2023 Patient encounter procedure Sara Bob [facility] Start: 03-25-2023 End: 03-26-2023 ambulatory Sara Bob Facility:CD:[id number] Start: 03-17-2023 End: 03-17-2023 ambulatory Dion Griggs Other [employer] Other Start: 03-17-2023 Office outpatient vi sit 25 minutes Dion Griggs [facility] Start: 03-17-2023 End: 03-17-2023 Patient encounter procedure [facility]- Start: 03-16-2023 End: 03-16-2023 ambulatory Tondra Mapus Other [employer] Other Start: 03-16-2023 Telephone encounter Tondra Danikaus [facility] Start: 02-02-2023 End: 02-03-2023 ambulatory ANGELI GUY Facility:[facility] Start: 02-02-2023 End: 02-02-2023 Patient encounter procedure [facility] Start: 12-15-2022 (DM) Diabetes Tondra Mapus [facility] Start: 12-15-2022 End: 12-16-2022 ambulatory Tondra K Mapus [employer] Other Start: 12-02-2022 End: 12-02-2022 ambulatory Dion Griggs Other [employer] Other Start: 12-02-2022 Nursing evaluation o f patient and report Dion Griggs [facility] Start: 09-02-2022 End: 09-02-2022 ambulatory Dion Griggs Other [employer] Other Start: 09-02-2022 Patient encounter procedure Dino Griggs [facility] Start: 08-20-2022 End: 08-20-2022 ambulatory Dion Griggs Other [employer] Other Start: 08-20-2022 Office outpatient vi sit 15 minutes Dion Griggs [facility] Start: 08-04-2022 End: 08-05-2022 ambulatory ANGELI BECKWITHRY Facility:[facility] Start: 08-04-2022 End: 08-04-2022 Patient encounter procedure ANGELI GUY [facility] Start: 07-23-2022 Office outpatient vi sit 10 minutes Dion Montiel Gabriel Work Phone: [facility] [place] 250 DO Work Phone: Start: 06-30-2022 Telephone encounter Dion Griggs [facility] Start: 06-30-2022 Office outpatient vi sit 25 minutes Dion Griggs Work Phone: [facility] [place] 250 DO Work Phone: Start: 06-30-2022 End: 06-30-[address] [facility] [employer] Other Start: 06-15-2022 (DM) Diabetes Tondra Mapus [facility] Start: 06-15-2022 End: 06-15-2022 ambulatory Tondra Mapus Other [employer] Other Start: 06-10-2022 End: 06-11-2022 ambulatory TONDRA MAPUS Facility: Start: 05-04-2022 Rx Renewal Dion szymanski Work Phone: [facility] [place] 250 DO Work Phone: Start: 04-27-2022 End: 04-27-2022 ambulatory Tondra Mapus Other [employer] Other Start: 04-27-2022 Telephone encounter Tondra Mapus [facility] Start: 02-25-2022 End: 02-25-2022 Patient encounter procedure ANGELITHERESA GUY [facility] Start: 02-06-2022 End: 02-07-[address] KAILEE Valente Facility:[facility] Start: 09-03-2021 Adult health examination Noam radha Griggs Other [employer] Other Start: 09-01-2021 Pre-procedure evalua tion check Dion Griggs Other [employer] Other Start: 08-26-2021 End: 08-26-2021 Patient encounter procedure Kailee Mckinney Jr. [facility] Start: 06-23-2021 End: 06-23-2021 ambulatory Tondra Mapus Other [employer] Other Start: 06-23-2021 Telephone encounter Tondra Mapus [facility] Start: 06-20-2021 End: 06-21-2021 ambulatory TONDRA MAPUS Facility:[facility] Start: 03-24-2021 Rx Renewal Dion szymanski Work Phone: [facility] 250 DO Work Phone: Start: 03-18-2021 End: 03-18-2021 ambulatory Tondra Mapus Other [employer] Other Start: 03-18-2021 Telephone encounter Tondra Mapus [facility] Start: 01-06-2021 Office outpatient vi sit 25 minutes Dion Griggs [facility] [employer] [facility] Work Phone: Start: 03-19-2020 End: 03-20-2020 Evaluation and management of inpatient CACHORRO ROBLERO Facility:[facility] Start: 03-19-2020 Patient encounter procedure UNKNOWN PROVIDER Facility:[facility] Procedures Date Procedure Procedure Detail Performing Clinician Start: 06-29-2023 Bacteria identified in Urine by Culture Start: 05-24-2023 Blood Culture 1 Start: 05-24-2023 Blood Culture 2 Start: 05-20-2023 Bacteria identified in Urine by Culture Start: 05-20-2023 Blood Culture 1 Start: 05-20-2023 Blood Culture 2 Start: 02-06-2022 PSA screening YNES BRAN Comment on above: Performed By: #### P SAD #### [facility] [address] [place] [address] Dr. Kim Roper Start: 05-01-2020 Transurethral prostatectomy [...] DTaP/Tdap/Td Vaccines (3 - Td or Tdap) [facility] Start: 04-12-2024 End: 04-12-2024 Patient encounter procedure 04/12/2024 11:20 AM EST Office Visit [facility] [address] [place] [address] Jaleesa Conn MD [address] [place] [address] [facility] Start: 10-31-2023 Influenza vaccination Influenz a Vaccine (Season Ended) [facility] Start: 06-30-2023 FUV, Provider: Jaleesa Conn, Status: Pen, Time: 11:00 AM FUV, Provider: Jaleesa Conn, Status: Pen, Time: 11:00 AM [facility] 250 DO Work Phone: Start: 05-20-2023 Blood Culture 1 Blood Culture 1 [facility] Start: 05-20-2023 Blood Culture 2 Blood Culture 2 [facility] Start: 10-30-2022 COVID-19 Vaccine ( season) COVID-19 Vaccine ( season) [facility] Start: 08-15-2022 Glaucoma screening Diabetes: R etinopathy Screening [facility] Start: 07-23-2022 NURSEVST, Provider: EMILY BERGMAN CIRCUS AGENT 1,[id number], Status: Pen, Time: 11:00 AM NURSEVST, Provider: EMILY BERGMAN CIRCUS [employer]ENT 1,[id number], Status: Pen, Time: 11:00 AM [facility] 250 DO Work Phone: Start: 06-30-2022 FUV, Provider: Jaleesa Conn, Status: Pen, Time: 11:20 AM FUV, Provider: Jaleesa Conn, Status: Pen, Time: 11:20 AM [facility] Work Phone: Start: 07-01-2021 FUV, Provider: Jaleesa Conn, Status: Pen, Time: 1:00 PM FUV, Provider: Jaleesa Conn, Status: Pen, Time: 1:00 PM [facility] Work Phone: Start: 2004 RSV patient s and/or patients aged 60+ years (1 - 1-dose 60+ series) RSV patients and/or patients aged 60+ years (1 - 1-dose 60+ series) [facility] Start: 1994 Zoster Vaccines (1 o f 2) Zoster Vaccines (1 of 2) [facility] Start: 07-15-1963 Urine screening for protein Diabetes: Urine Protein Screening [facility] Start: 1962 Hepatitis C screening Hepatitis C Sc reening [facility] Start: 1954 Diabetic foot examination Diabetes: Foot Exam [facility] Start: 1944 Hemoglobin A1c measurement Diabetes: Hemoglobin A1C [facility] Start: 1944 Lipid panel Lipid Panel [facility] Start: 1944 Medicare Annual Wellness Visit Medicare Annual Wellness Visit (AWV) [facility] Patient Education Diabetes in Ol aroldo Adults [facility] Work Phone: [facility] Immunizations Immunization Date Immunization Notes Care Provider Mark manzanares 12-02-2022 influenza, high dose seasonal, preservative-free Dion Griggs Other [employer] [facility] [employer] Other 12-02-2022 influenza virus vaccine, unspecified formulation [facility] 12-10-2021 Fluad Quadrivalent 0 .5 ML Intramuscular Prefilled Syringe Dion Griggs Work Phone: [facility] [place] 250 DO Work Phone: 12-10-2021 influenza virus vaccine, split virus (incl. purified surface antigen) Dion Griggs Other [employer] Other 12-10-2021 influenza virus vaccine, unspecified formulation ANGELI GUY [facility] 12-10-2021 influenza, high dose seasonal, preservative-free Dion Griggs Other [facility] [employer] Other 12-06-2020 influenza virus vaccine, unspecified formulation ANGELI GUY [facility] 12-06-2020 influenza, high dose seasonal, preservative-free Dion Griggs Work Phone: [facility] Comment on above: Series: 12-05-2020 influenza virus vaccine, split virus (incl. purified surface antigen) Dion Girggs Other [facility] [employer] Other 12-05-2020 influenza virus vaccine, unspecified formulation [facility] 05-06-2020 Josephine COVID-19 Vaccine 0.5 ML Intramuscular Suspension Dion Griggs Work Phone: [facility] Comment on above: Series: 03-19-2020 diphtheria, tetanus toxoids and pertussis vaccine Dion Griggs Work Phone: [facility] 03-19-2020 tetanus toxoid, redu noman diphtheria toxoid, and acellular pertussis vaccine, adsorbed Jaleesa Conn MD Work Phone: [facility] Work Phone: 12-05-2019 influenza virus vaccine, split virus (incl. purified surface antigen) Dion Griggs Other [facility] [employer] Other 12-05-2019 influenza virus vaccine, unspecified formulation [facility] 11-30-2019 influenza virus vaccine, unspecified formulation ANGELI GUY [facility] 11-30-2019 influenza, high dose seasonal, preservative-free Dion Griggs Work Phone: [facility] 250 DO Work Phone: 10-31-2019 influenza virus vaccine, unspecified formulation Dion Griggs Work Phone: [facility] 11-23-2018 influenza virus vaccine, split virus (incl. purified surface antigen) Dion Griggs Other [facility] [employer] Other 11-23-2018 influenza virus vaccine, unspecified formulation ANGELI GUY [facility] 11-23-2018 influenza, injectabl e, quadrivalent, preservative free Dion E Gabriel Work Phone: [facility] DO Work Phone: 10-30-2018 influenza, high dose seasonal, preservative-free Dion E Gabriel Work Phone: [facility] DO Work Phone: 04-01-2015 pneumococcal conjuga te vaccine, 13 valent Doin E Gabriel Work Phone: [facility] 03-01-2015 pneumococcal polysaccharide vaccine, 23 valent Dion E Gabriel Work Phone: [facility] Comment on above: Series: 02-27-2015 pneumococcal conjuga te vaccine, 13 valent Dion Griggs Other [facility] 02-27-2015 pneumococcal Conjuga te, unspecified formulation; 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: [Need for prophylactic vaccination against Streptococcus pneumoniae (pneumococcus)] Dion Griggs Other [facility] [employer] Other 03-01-2010 influenza virus vaccine, unspecified formulation Dion E Gabriel Work Phone: [facility] [employer] [facility] DO Work Phone: 03-01-2006 pneumococcal polysaccharide vaccine, 23 valent Dion E Ball Work Phone: [facility] [employer] [facility] DO Work Phone: influenza virus vaccine, unspecified formulation Dion Griggs Work Phone: [facility] 250 DO Work Phone: Comment on above: 2009 Payers Date Payer Category Payer Unknown 2017 Self-pay [id number] 2017 Unknown [id number] 2009 Medicare MEDICARE MEDICAR E RAILROAD [id number] 2009-Present [address] [place] [address] [id number] 1959 Medicare [id number] 1959 Unknown [id number] 1944 Unknown [id number] 1944 Unknown [id number] 1944 Unknown [id number] 1944 Unknown [id number] 1944 Unknown [id number] 1944 Unknown [id number] 1944 Unknown [id number] 1944 Unknown [id number] 1944 Unknown [id number] 1944 Unknown [id number] 1944 Unknown [id number] 1945 Unknown [id number] 1945 Unknown [id number] 1945 Unknown [id number] 1945 Unknown [id number] Unknown [id number] Social History Date Type Detail Facility Start: 06-30-2023 No illicit drug use No illicit drug use [facility] 250 DO Work Phone: Comment on above: 3 cups coffee daily, occasionl diet soda; 1 beer a month; Start: 06-30-2023 Sex Assigned At N [facility] [employer] Other Start: 08-26-2021 End: 06-24-2023 Tobacco smoking status Ex-smoker (finding) [facility] Start: 04-28-2023 Tobacco smoking status Never [facility] Start: 1945 Sex Assigned At Male F [facility] Start: 03-01-1972 History of tobacco use Current smoke r [facility] Work Phone: Start: 03-01-1972 History of tobacco use Cigarette Smo ker [facility] Work Phone: Start: 06-30-2023 Tobacco use and exposure Smokeless tobacco non-user [facility] Work Phone: Start: 06-30-2023 Alcoholic beverage intake Current drinker of alcohol (finding) [facility] Work Phone: Start: 06-30-2023 Alcohol Comment rarely [facility] Work Phone: Start: 1945 Sex assigned at Not on file [facility] Work Phone: Start: 06-20-2023 End: 06-30-2023 Exposure to SARS-CoV-2 (event) Not sure [facility] Medical Equipment Procedure Code Equipment Code Equipment Origin al Text Equipment Identifier Dates Start: 04-23-2014 Functional Status Date Assessment Result Facility 04-28-2023 Functional Status N/A [facility] 02-02-2023 Functional Status N/A [facility] 08-04-2022 Functional Status N/A [facility] 02-25-2022 Functional Status N/A [facility] 08-26-2021 Functional Status N/A [facility] Clinical Notes 08-26-2021 to 06-30-2023 Jaleesa Conn [...] 3. [facility] 4. Class I obesity. Encouraged more weight control with diet and exercise. 5. Coronary artery disease with 50% LAD stenosis in 2009 cardiac catheterization, nuclear stress test 2020 was normal risk factor have been aggressively targeted 6. 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 Obstructive sleep apnea compliant with CPAP machine. Jaleesa Conn MD, [facility] Review of Systems All other systems reviewed [...] day with meals., Disp: , Rfl: omega 4-hva-dhd-fish oil (Fish OiL) 1,000 mg (120 mg-180 [...] discussion and plan. documented in this encounter [facility] Work Phone: 06-30-2023 Instructions Celina Womack [...] Increase physical activity. documented in this encounter [facility] Work Phone: 06-18-2023 Note [phone] [id number] [place] [facility] Clinical Discharge Summary PERSON INFORMATION Name JOSEPH ESCALONA Age 77 Years 1945 Sex MALE Language Ghanaian PCP Dion Griggs Marital Status Med Service Ambulatory Surgery Acct# Arrival 06/15/2023 11:20:08 Visit Reason SURGERY - CYSTOSCOPY Acuity LOS 008 05:56 Address: [address] [place] [address] Comment: PROVIDER INFORMATION VITALS INFORMATION Vital Sign [...] tab(s) Oral (giv (more content not included)... [facility] 04-28-2023 Hospital Discharge instructions Patient Education [...] including vitamins, herbs, eye drops, creams, and xrhj-yty-ddehkly medicines. ?Whether you are or may be [...] provider. Document Revised: 10/29/2021 Document Reviewed: 09/20/2020 [employer] Patient Education 2022 [employer]. 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 Mar, Obstructive sleep apnea (ICD-10 - G47.33) This patient is aware of the benefits associated with GEOVANNA: With continued use, the patient reduces the risk for MT, CVA, HTN, cardiac dysrhythmias and sudden cardiac [...] [BMI] 33.0-33.9, adult (ICD-10 - Z68.33) Mar, long-term (current) use of insulin (ICD-10 - Z79.4) [employer] Other 01-16-2024 Evaluation note* Encounter Date Diagnosis Assessment Notes Treatment Notes Treatment Clinical Notes Mar, Type 2 diabetes mellitus with hyperglycemia (ICD-10 - E11.65) [facility] Other 12-05-2023 Hospital Discharge instructions Patient Education [...] including vitamins, herbs, eye drops, creams, and chne-ezb-uspcexp medicines. Any problems you or family members [...] provider tells you to take them. Taking gywq-qto-dvegzcd medicines, vitamins, herbs, and supplements. Tests You [...] Follow these instructions at home: Medicines Take jjir-hyn-bvkjwve and prescription medicines only as told by [...] provider. Document Revised: 10/29/2021 Document Reviewed: 09/27/2020 [employer] Patient Education 2022 [employer]. Follow Up Care 08/04/2022 10:55:35 With:BROOKS ANTHONY, ANGELI Montiel, URL Address: [address] [place] [address] [phone] When: Unknown Comments:sched cysto/TRUS [facility] 12-05-2023 NoteUrology Cystoscopy Cystoscopy is a [...] including vitamins, herbs, eye drops, creams, and zvpa-lkm-xweasnp medicines. ? Any problems you or family [...] tells you to take them. ? Taking lyia-dkx-qgbrstz medicines, vitamins, herbs, and supplements. Tests You [...] these instructions at home: Medicines ? Take dhdj-rao-dhvcgrq and prescription medicines only as told by [...] or the department th (more content not included)...[facility] 12-15-2022 Evaluation note* Encounter Date Diagnosis [...] f/u with pcp for further evaluation. 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 (ICD-10 - Z79.4) Nov, Vitamin B 12 deficiency (ICD-10 - E53.8) 05/2022 vit b 12 281 at target Nov, BMI 33.0-33.9,adult (ICD-10 - Z68.33) Setting weight-loss goals material was published [facility] Other 06-22-2023 Evaluation note* Encounter Date Diagnosis Assessment Notes Treatment Notes Treatment Clinical Notes 22 Roverto, 2023 Acute bacterial conjunctivitis of right eye (ICD-10 - H10.31) Wipe w/ warm wash cloth in morning Artificial tears Frequent hand washing Notify office or see accounting software specialist if develop pain, blurred vision or fails to improve Jul, Viral URI (ICD-10 - J06.9) Instructed to use Robitussin or Mucinex for cough, saline or Flonase NS for congestion, Tylenol for pain and fever. Jul, Type 2 diabetes mellitus with hyperglycemia (ICD-10 - E11.65) Acute infection may cause BS to increase temporarily. No adjustment in treatment necessary [facility] Other 06-06-2023 Hospital Discharge instructions Patient Education [...] urethra. Follow these instructions at home: Take ibhd-cji-zlbhdbh and prescription medicines only as told by [...] provider. Document Revised: 09/03/2021 Document Reviewed: 09/03/2021 [employer] Patient Education 2022 [employer]. Follow Up Care 02/25/2022 10:18:55 With:ANGELI GUY PA-C, ROMANL Address: When:1 year [facility] 05-02-2023 Evaluation note* Encounter Date Diagnosis Assessment Notes Treatment Notes Treatment Clinical Notes June, Arteriosclerotic hea rt disease (ASHD) (ICD-10 - I25.10) LHC: 50% - 2009 [facility] Other 04-17-2023 Evaluation note* Encounter Date Diagnosis [...] f/u with pcp for further recommendation. 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 ?Whether you are or may be [...] 12/13/2007 Document Revised: 06/06/2019 Document Reviewed: 12/20/2017 [employer] Patient Education 2019 [employer]. Follow Up Care 08/26/2021 10:57:16 With:ANGELI GUY PA-C, URL Address: [address] [place] [address] When: Unknown [facility] 06-28-2022 Hospital Discharge instructions Patient Education 08/26/2021 [...] Follow these instructions at home: Medicines Take rlax-ifz-ncufovm and prescription medicines only as told by [...] or the blood stops without treatment. Take fezc-kgv-dhjmrpq and prescription medicines only as told by your health care provider. Drink enough fluid to keep your urine clear or pale yellow. This information is not intended to replace advice given to you by your health care provider. Make sure you discuss any questions you have with your health care provider. Document Released: 02/15/2006 Document Revised: 07/12/2019 Document Reviewed: 03/20/2017 [employer] Patient Education 2020 [employer] Follow Up Care 02/25/2021 11:22:41 With:Hank Robbins MD, Kailee Szymanski, URO Address: [facility] [address], [place] [address]- [phone] When:02/25/2022 [facility] chiue complaint+Reason for visit Narrative* Chief Complaint meter [...] mellitus with hyperglycemia Medicare annual wellness visit, [facility] Work Phone: evaluation + Plan note Future Appointments Appointment Date:03/10/2022 10:15:00 AM Scheduled Provider:Kailee Mckinney Jr., MD Location:[facility] Appointment Type:URO Office Visit Diagnostic Tests Pending * PSA Total 08/26/21 [facility] evaluation + Plan note Future Appointments Appointment Date:08/04/2022 10:00:00 AM Scheduled Provider:ANGELI GUY PA-C Location:[facility] Appointment Type:URO Office Visit [facility] evaluation + Plan note Future Appointments Appointment Date:02/03/2023 01:00:00 PM Scheduled Provider:ANGELI GUY PA-C Location:[facility] Appointment Type:URO Office Visit [facility] evaluation + Plan note Future Appointments Appointment Date:04/28/2023 10:00:00 AM Scheduled Provider:Sara Bob MD Location:[facility] Appointment Type:URO Office Visit [facility] Evaluation noteNo [employer] Other Evaluation noteNort [employer] Other Evaluation noteNo assessment information available [facility] Work Phone: Evaluation note* Diagnosis Onset Date Resolution Status Bilateral nephrolithiasis ac latasha Urinary retention with incomplete bladder emptying acute Pyelonephritis of right kidney noneactive Dietary counseling and surveillance acute Hyperlipidemia LDL goal <100 acute Primary hypertension acute Type 2 diabetes mellitus acu te Vitamin B 12 deficiency acut e [facility] Work Phone: Evaluation note* Diagnosis Essential hypertension, benign- Primary ASCVD (arteriosclerotic cardiovascular disease) Unspecified cardiovascular disease Mixed hyperlipidemia Type 2 diabetes mellitus without complication, with long-term current use of insulin (Multi) Former smoker Personal history of tobacco use, presenting hazards to health BMI 32.0-32.9,adult Obstructive sleep apnea syndrome Obstructive sleep apnea (adult) (pediatric) Urinary retention Unspecified retention of urine documented in this encounter [facility] Work Phone: Evaluation note* Diagnosis Onset [...] acute Medicare annual wellness visit, subsequent noneactive [facility] Work Phone: [employer] general Narrative - Reported* Type Description Date Medical History hypertension Medical History hyperlipidemia Medical History DM2 Medical History obesity Medical History CAD- 50% occlusion LAD-Sees Dr Keila oro Surgical History appendectomy Surgical History RT knee surgery Surgical History arthroscopic knee surgery, left 01/17 Surgical History Cystoscopy 05/01/2020 Hospitalization History see above surgery [facility] Other [facility] general Narrative - Reported* Type Description Date [...] EGD 1997 Hospitalization History see above surgery [facility] [employer] Other History [facility] - [facility] [employer] Other Hospital course Narrative No data available for this section [facility] Social IQ (Social Influence Quotient) Hospital Discharge instructions No data available for this section [facility] [place] [facility] note No data available for this section [facility] Social IQ (Social Influence Quotient) reason for referral (narrative)* Consultation (Routine) - Authorized Specialty Diagnoses / Procedures Referred By Constantino t Referred To Contact Cardiology Diagnoses ASCVD (arteriosclerotic cardiovascular disease) Procedures Follow Up In Cardiology Jaleesa Conn MD [address] [place] [address], [place] [address] Jaleesa Conn MD [address] [place] [address] 2, [place] [address] Referral ID Status Reason Start Date Expiration Date V isits Requested Visits Authorized [id number] Authorized 06/30/2023 06/29/2024 1 1 [facility] Work Phone: Summary Purpose Family History [...] 3. [facility] * 4. Obesity. Encouraged more weight [...] 3. Diabetes, [facility] * 4. Obesity. Encouraged more weight control with diet and exercise. His weight has increased 10 pounds from last visit, encouragement provided to reduce calorie consumption since he seems to be physically active * 5. Coronary artery disease with 50% LAD stenosis in 2009 cardiac catheterization, nuclear stress test 2020 was normal risk factor have been aggressively targeted * [facility] MD, [facility] * JOSEPH ESCALONA is being [...] 3. Diabetes, [facility], recent A1c 7.2 * 4. Obesity. [...] section and content) DATE CREATED AUTHOR 08/16/2019 [facility] DATE CREATED AUTHOR AUTHOR'S ORGANIZ ATION 03/26/2020 [employer] DATE CREATED AUTHOR AUTHOR'S ORGANIZ ATION 06/15/2022 [facility] DATE CREATED AUTHOR AUTHOR'S ORGANIZ ATION 07/01/2022 [facility] DATE CREATED AUTHOR AUTHOR'S ORGANIZ ATION 07/02/2022 [employer] DATE CREATED AUTHOR AUTHOR'S ORGANIZ ATION 04/15/2023 [facility] DATE CREATED AUTHOR AUTHOR'S ORGANIZ ATION 07/08/2023 [facility] DATE CREATED AUTHOR AUTHOR'S ORGANIZ ATION 07/28/2023 Maurisio Billings [facility] DATE CREATED AUTHOR AUTHOR'S ORGANIZ ATION 09/13/2023 [facility] Ambulatory REASON FOR VISIT (unrecogniz [...] March 17, 2023 End: March 17, 2023 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 [facility] [employer] [facility]. provides no warranty or guarantee of the accuracy or completeness of information in this document.
[2023-09-27 23:30] VITALS: O2SAT 91
[2023-09-27] MEDS: 0.9 % SODIUM CHLORIDE 1,000 ML 100 ML IV (23:54)
[2023-09-28] VITALS (17 sets, daily range): BP systolic 119–147; BP diastolic 56–78; PULSE 72–82; TEMP 36.6–36.8; O2SAT 90–96
[2023-09-28 06:30] LABS: Anion Gap 11.1; BUN Creatinine Ratio 9.8; Calcium 8.5 mg/dL (8.5-10.1); Carbon Dioxide 29.6 mmol/L (21.0-32.0); Chloride 105 mmol/L (98-107); Estimated GFR (African America >60 (>=60); Estimated GFR (Non-African Ame >60 (>=60); Glucose 146 mg/dL (74-106); Magnesium 1.7 mg/dL (1.8-2.4); Potassium 3.7 mmol/L (3.5-5.1); Sodium 142 mmol/L (136-145)
[2023-09-28 06:33] LABS: INR 0.99; Partial Thromboplastin Time 24.5 sec (22.3-36.2); Prothrombin Time 10.5 sec (9.0-11.6)
[2023-09-28] MEDS: 0.9 % SODIUM CHLORIDE 1,000 ML 100 ML IV (08:40)
[2023-09-28] MEDS: CEFTRIAXONE 1,000 MG in 0.9 % SODIUM CHLORIDE 50 ML 100 MG IV (08:41)
--- NOTE | 2023-09-28 09:09 | ECG_ITS ---
[facility] Test Date: 2023-09-28 Pat Name: KAREN ESCALONA Department: Room: [facility] Gender: Male [employer] Counter Clerk: : 1945 Requested By: JOHN RIOS Order Number: [id number] Reading MD: JOHN RIOS Measurements Intervals [place] Rate: 75 P: 32 [place]: 214 QRS: 31 QRSD: 86 T: 4 QT: 382 QTc: 427 Interpretive Statements SINUS RHYTHM WITH FIRST DEGREE AV BLOCK Nonspecific ST/T wave changes Compared to ECG 03/19/2020 09:36:59 First degree AV block now present Electronically Signed On 09-28-2023 23:06:58 EDT by JOHN RIOS
--- NOTE | 2023-09-28 10:45 | CM.NOTE ---
Rounds made with Dr. Ga. Plan for surgery today and potential for discharge later today after surgery. Mr. Connolly in agreement.
--- NOTE | 2023-09-28 11:09 | PM.HP ---
HPI H&P: HPI History of Present Illness Chief complaint: Abdominal Pain Narrative: 78-year-old male presented to ER last evening with left-sided flank pain with radiation to suprapubic region along with nausea and vomiting. His symptoms started suddenly and progressively got worse to a point where he could not get comfortable so he decided to come to ED for further evaluation. Patient has autonomic dysfunction for which he uses self-catheterization to empty his bladder. Workup in ER revealed urinary tract infection along with left proximal hydroureter because of obstructing ureteral stone. Patient is currently n.p.o. and is scheduled for OR this afternoon. Patient's symptoms have improved and he denies nausea, vomiting. He still has mild left flank pain. He denies hematuria and is urinating without needing to catheterize himself. He has no prior history of renal stones. Opioid HPI Opioid Management Most Recent Pain and Opioid Data: Last Pain Scale 3 09/27/23 19:29 Last Pain Assessment 09/28/23 10:24 Last ED Pain Assessment 09/27/23 19:25 Last ORT Total Score 3 09/27/23 23:36 Last ORT Risk Category Low Risk 09/27/23 23:36 Review of Systems ROS Status of ROS 10 or more systems reviewed and unremarkable except as noted in history and [facility] History (Updated 09/28/23 @ 11:14 by Shaikh Harmeet MD) CAD (coronary artery disease) ?I25.10 - Atherosclerotic heart disease of [place] coronary artery without angina pectoris (ICD-10) Hypertension ?I10 - Essential (primary) hypertension (ICD-10) Neurogenic bladder ?N31.9 - Neuromuscular dysfunction of bladder, unspecified (ICD-10) Diabetes ?E11.9 - Type 2 diabetes mellitus without complications (ICD-10) Surgical History (Updated 09/27/23 @ 23:42 by Oumou Cheng RN) H/O knee surgery ?Z98.890 - Other specified postprocedural states (ICD-10) History of appendectomy ?Z90.49 - Acquired absence of other specified parts of digestive tract (ICD-10) Family History (Updated 09/27/23 @ 23:43 by Oumou Cheng RN) Mother Family history of myocardial infarction Father Family history of myocardial infarction Family history of stroke Brother Family history of cancer Sister Family history of cancer Social History (Updated 09/27/23 @ 23:44 by Oumou Cheng RN) Within the past year, how often did you have a drink containing alcohol: monthly or less Within the past year, how often did you have six or more drinks on one occasion: never Smoking status: Former smoker Non-prescribed substance use: denies use Highest level of school completed/degree received: high school graduate Are you now , , , , never or living with a partner: In a typical week, how many times do you talk on the telephone with family, friends, or neighbors: 3 or more times per week How often do you get together with friends or relatives: 3 or more times per week How often do you attend yazdanism or bahai services: never Little interest or pleasure in doing things: not at all Feeling down, depressed, or hopeless: not at all Feel stressed/tense/nervous/anxious/difficulty sleeping: not at all Gender Identity: male Meds Home Medications and Allergies Home Medications ?Medication ?Instructions ?Recorded ?Confirmed ?Type Lantus Basaglar 25 units subcut DAILY 09/27/23 09/27/23 History amlodipine 5 mg-benazepril 20 mg 1 cap PO DAILY 09/27/23 09/27/23 History capsule aspirin 81 mg chewable tablet 1 tab PO .every other day 09/27/23 09/27/23 History cholecalciferol (vitamin D3) 50 1,000 unit PO .every other day 09/27/23 09/27/23 History mcg (2,000 unit) capsule dulaglutide 1.5 mg/0.5 mL 1.5 mg subcut QWEEK 09/27/23 09/27/23 History subcutaneous pen injector (Trulicity) glipizide 10 mg tablet 10 mg PO DAILY 09/27/23 09/27/23 History rosuvastatin 20 mg tablet 20 mg PO DAILY 09/27/23 09/27/23 History metformin 500 mg tablet,extended 1,000 mg PO QAM 09/28/23 09/28/23 History release 24 hr metformin 500 mg tablet,extended 500 mg PO QPM 09/28/23 09/28/23 History release 24 hr Allergies Allergy/AdvReac Type Severity Reaction Status Date / Time No Known Drug Allergies Allergy Verified 05/24/23 12:52 Exam Constitutional Vital Signs, click to edit/add: Last Vital Signs Temp 98.1 F 09/28/23 08:46 Pulse 77 09/28/23 08:46 Resp 18 09/28/23 08:46 BP 123/71 09/28/23 08:46 Pulse Ox 90 L 09/28/23 08:46 O2 Del Method Room Air 09/28/23 08:46 Documenting provider has reviewed patient's vital signs: yes Common normals: no apparent distress and oriented x3 General appearance: cooperative Respiratory Common normals: normal respiratory effort and clear to auscultation bilaterally Effort & inspection: able to speak in complete sentences Auscultation: clear to auscultation bilaterally Cardio Common normals: regular rate, S1 normal heart sound and S2 normal heart sound Rate: regular rate Heart sounds: S1 normal and S2 normal GI Common normals: Normal to inspection, nondistended, normoactive bowel sounds present, soft to palpation, non-tender and no hepatosplenomegaly Palpation: soft and no hepatosplenomegaly Extremity Common normals: no clubbing, cyanosis or edema Neuro Common normals: oriented x3, moves all extremities and no focal motor deficits Psych Common normals: mental status grossly normal, denies hallucinations, denies homicidal ideation and denies suicidal ideation Results Labs Labs: Short CBC 09/27/23 Range/Units 18:53 WBC 8.7 (4.0-11.0) 10^3/uL Hgb 14.1 (14.0-18.0) g/dL Hct 40.7 L (42.0-54.0) % Plt Count 149 L (150-450) 10^3/uL BMP 09/27/23 09/28/23 20:05 05:12 Sodium 137 142 Potassium 3.7 3.7 Chloride 102 105 Carbon Dioxide 26.7 29.6 BUN 10.0 9.0 Creatinine 0.85 0.92 Glucose 120 H 146 H Calcium 8.7 8.5 Liver Function 09/27/23 Range/Units 20:05 Total Bilirubin 0.8 (0.2-1.0) mg/dL AST 17 (15-37) U/L ALT 28 (16-63) U/L Alkaline Phosphatase 50 (46-116) U/L Albumin 3.7 (3.4-5.0) g/dL Urine 07/29/24 Range/Units 19:30 Urine Color Lt. yellow (YELLOW) Urine Clarity Clear (CLEAR) Urine pH 6.0 (5.0-9.0) Ur Specific [place] 1.020 (1.005-1.025) Urine Protein >=300 A (NEG/TRACE) mg/dL Urine Glucose (UA) Negative (NEGATIVE) mg/dL Assessment and Plan Assessment and Plan (1) Ureteral stone with hydronephrosis: Assessment and Plan: Obstructing left ureteral stone with hydroureteronephrosis. Urology on board. Patient will be taken to the OR for possible ureteral stent and stone extraction. Continue with IV fluids. Pain is reasonably controlled. He is also denying nausea and vomiting. Continue with Zofran as needed. (2) Hydroureter, left: Assessment and Plan: Due to obstructing left ureteral stone. Scheduled for OR this afternoon (3) Urinary tract infection: Assessment and Plan: Due to and associated with left ureteral stone along with urinary catheter. On IV Rocephin. Follow-up blood and urine cultures. Qualifiers: Urinary tract infection type: acute cystitis Hematuria presence: with hematuria Qualified Code(s): N30.01 - Acute cystitis with hematuria (4) CAD (coronary artery disease): Assessment and Plan: Mild nonobstructive coronary artery disease. On aspirin and statin. Qualifiers: Coronary Disease-Associated Artery/Lesion type: [place] artery [place] vs. transplanted heart: [place]emat[place] heart Associated angina: without angina Qualified Code(s): I25.10 - Atherosclerotic heart disease of [place] coronary artery without angina pectoris (5) Hypertension: Assessment and Plan: Blood pressure is stable and at goal. Continue with home medications. Qualifiers: Hypertension type: primary hypertension Qualified Code(s): I10 - Essential (primary) hypertension (6) Diabetes: Assessment and Plan: Hold glipizide and Trulicity. Sliding scale insulin while patient is NPO. Monitor blood glucose. 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
--- NOTE | 2023-09-28 11:25 | SWNOTE1 ---
SW met with pt to discuss dc needs. Pt's and daughter in law were in room as well. Pt is independent with all ADL's at home and does not have any anticipated discharge needs. Pt is going to OR today and plans on discharging after surgery today. SW to follow as needed. Medicare Outpatient Observation Notice reviewed and discussed with patient. Pt. verbalized understanding and signed the form. Original given to patient and copy placed in patient?s chart.
[2023-09-28] MEDS: LACTATED RINGER'S SOLUTION 1,000 ML 50 ML IV (14:00)
--- NOTE | 2023-09-28 14:30 | XR_ITS ---
[address] [address] Patient Name: KAREN ESCALONA MRN: [id number] date: 1945 Sex: M Assigned Patient Location: MS Current Patient Location: Accession/Order Number: [id number] Exam Date: 09/28/2023 14:56 Report Date: 09/29/2023 07:10 At the request of: VIRI CAREY Procedure: XR urethrogram retrograde EXAM: XR urethrogram retrograde HISTORY: Kidney stones, bilateral stent placement, inna retrograde COMPARISON: None. TECHNIQUE: Single intraprocedural image. 16.94 mg FINDINGS: Single image demonstrates bilateral double-J ureteral stents. Retrograde injection of iodinated contrast into the left renal collecting system with mild hydronephrosis, rapid tapering at the left ureteropelvic junction XR/XR urethrogram retrograde IMPRESSION: Bilateral double-J ureteral stents Electronically authenticated by: PERLA NINO Date: 09/29/2023 07:10
--- NOTE | 2023-09-28 15:02 | P.CN_ITS ---
Consult Note: HPI Data of Consult Consult date: 09/28/23 Requesting Physician: Shaikh Harmeet MD Primary Care Provider: Dion Griggs DO Consult Narrative Reason for consult: BL ureteral stones, UTI Narrative: 78 year old male with DM2 and atonic bladder managed with CIC presented to the ER last night with diffuse mid abdominal pain and emesis. CT AP revealed bilateral ureteral stones: 6 mm left proximal ureter with moderate hydronephrosis, 1 cm right UPJ stone without hydro. Multiple BL kidney stones: Left- 1 cm renal pelvis, 3 mm LMP. Right - Couple 2 mm stones. UA +nitrites and leuks. Serum labs wnl however left shift in WBC noted. Patient was mildly tachycardic. Patient was admitted to hospitalist for further management, IV a ntibiotics started, and Urology consulted for further evaluation. Pt denies fever, chills, continued nausea/emesis, bladder pain, hematuria or change in urine output with CIC (Baseline x4/day). Continues to have BL upper abdominal pain. Pt sees Dr. Rhodes. Previously seen Dr. Mckinney. Denies history of stones. Does have recurrent UTIs. Denies neurologic disorder cc:: CC: Shaikh Harmeet MD Review of Systems ROS Status of ROS 10 or more systems reviewed and unremark able except as noted in history and below Constitutional Denies: fever or chills Cardiovascular Denies: chest pain or palpitations Respiratory Denies: shortness of breath or cough Gastrointestinal Reports: abdominal pain, nausea and vomiting Genitourinary Denies: painful urination, urinary urgency or blood in urine Musculoskeletal Reports: back pain; Denies: neck pain Integumentary/Breast Denies: rash or itching Neurological Denies: numbness in extremities or weakness in extremities [facility] Medical History CAD (coronary artery disease) ?I25.10 - Atherosclerotic heart disease of [place] coronary artery without angina pectoris (ICD-10) Hypertension ?I10 - Essential (primary) hypertension (ICD-10) Neurogenic bladder ?N31.9 - Neuromuscular dysfunction of bladder, unspecified (ICD-10) Diabetes ?E11.9 - Type 2 diabetes mellitus without complications (ICD-10) Surgical History H/O knee surgery ?Z98.890 - Other specified postprocedural states (ICD-10) History of appendectomy ?Z90.49 - Acquired absence of other specified parts of digestive tract (ICD- 10) Family History Mother Family history of myocardial infarction Father Family history of myocardial infarction Family history of stroke Brother Family history of cancer Sister Family history of cancer Social History Within the past year, how often did you have a drink containing alcohol: monthly or less Within the past year, how often did you have six or more drinks on one occasion: never Smoking status: Former smoker Non-prescribed substance use: denies use Highest level of school completed/degree received: high school graduate Are you now , , , , never or living with a partner: In a typical week, how many times do you talk on the telephone with family, friends, or neighbors: 3 or more times per week How often do you get together with friends or relatives: 3 or more times per week How often do you attend christianity or scientologist services: never Little interest or pleasure in doing things: not at all Feeling down, depressed, or hopeless: not at all Feel stressed/tense/nervous/anxious/difficulty sleeping: not at all Gender Identity: male Meds Home Medications and Allergies Home Medications ?Medication ?Instructions ?Recorded ?Confirmed ?Type Lantus Basaglar 25 units subcut DAILY 09/27/23 09/27/23 History amlodipine 5 mg-benazepril 20 mg 1 cap PO DAILY 09/27/23 09/27/23 History capsule aspirin 81 mg chewable tablet 1 tab PO .every other day 09/27/23 09/27/23 Histo ry cholecalciferol (vitamin D3) 50 1,000 unit PO .every other day 09/27/23 09/27/23 History mcg (2,000 unit) capsule dulaglutide 1.5 mg/0.5 mL 1.5 mg subcut QWEEK 09/27/23 09/27/23 History subcutaneous pen injector (Trulicity) glipizide 10 mg tablet 10 mg PO DAILY 09/27/23 09/27/23 History rosuvastatin 20 mg tablet 20 mg PO DAILY 09/27/23 09/27/23 History metformin 500 mg tablet,extended 1,000 mg PO QAM 09/28/23 09/28/23 History release 24 hr metformin 500 mg tablet,extended 500 mg PO QPM 09/28/23 09/28/23 History release 24 hr Allergies Allergy/AdvReac Type Severity Reaction Status Date / Time No Known Drug Allergies Allergy Verified 05/24/23 12:52 Exam Narrative Exam Narrative: No acute distress, appears nontoxic Nonlabored respirations, symmetric chest rise, on room air Normal rate and rhythm, no peripheral edema Non tender abdomen, non distended No BL CVA tenderness, no suprapubic tenderness Moves all extremities, no deformities Alert and oriented x 4, no acute focal deficits Skin dry, intact Appropriate, cooperative Constitutional Vital Signs, click to edit/add: Last Vital Signs Temp 98.2 F 09/28/23 13:21 Pulse 72 09/28/23 13:21 Resp 18 09/28/23 13:21 BP 136/76 09/28/23 13:21 Pulse Ox 91 L 09/28/23 13:21 O2 Del Method Room Air 09/28/23 13:21 Results Labs Labs: Short CBC 09/27/23 Range/Units 18:53 WBC 8.7 (4.0-11.0) 10^3/uL Hgb 14.1 (14.0-18.0) g/dL Hct 40.7 L (42.0-54.0) % Plt Count 149 L (150-450) 10^3/uL BMP 09/27/23 09/28/23 20:05 05:12 Sodium 137 142 Potassium 3.7 3.7 Chloride 102 105 Carbon Dioxide 26.7 29.6 BUN 10.0 9.0 Creatinine 0.85 0.92 Glucose 120 H 146 H Calcium 8.7 8.5 Liver Function 09/27/23 Range/Units 20:05 Total Bilirubin 0.8 (0.2-1.0) mg/dL AST 17 (15-37) U/L ALT 28 (16-63) U/L Alkaline Phosphatase 50 (46-116) U/L Albumin 3.7 (3.4-5.0) g/dL Urine 09/27/23 Range/Units 19:30 Urine Color Lt. yellow (YELLOW) Urine Clarity Clear (CLEAR) Urine pH 6.0 (5.0-9.0) Ur Specific [place] 1.020 (1.005-1.025) Urine Protein >=300 A (NEG/TRACE) mg/dL Urine Glucose (UA) Negative (NEGATIVE) mg/dL Additional Findings Additional findings: CT AP 09/27/23: Kidneys/Adrenals: A 6 mm stone is seen in proximal third of left ureter causing moderate left hydronephrosis. A 1 cm stone is seen in right pelviureteral junction. No right hydronephrosis. A 1 cm nonobstructive stone in left renal pelvis. A 3 mm nonobstructive stone is seen in middle calyx of left kidney. Couple of right renal nonobstructive stones, 2 mm each. Stable 3.5 cm left renal cyst. Stable bilateral adrenal lipid rich adenomas. Assessment and Plan Assessment and Plan (1) Bilateral ureteral calculi: (2) Ureteral stone with hydronephrosis: (3) Urinary tract infection: Qualifiers: Hematuria presence: with hematuria Urinary tract infection type: acute cystitis Qualified Code(s): N30.01 - Acute cystitis with hematuria (4) Atonic bladder: Plan 78 year old male as above admitted with UTI and Bilateral ureteral stones: 1 cm R UPJ and 6 mm L proximal ureteral stone with hydronephrosis and additional BL kidney stones (near 2 cm total stone burden on left). After discussion of risks/benefits of management options, patient elected to proceed to the OR for cystoscopy, bilateral retrograde pyelogram, bilateral ureteral stent placement. Risks were discussed including but not limited to bleeding, pain, infection, damage to surrounding structures, inability to treat the stone/place a stent, and need for additional procedures. The patient unde rstands the stent is not permanent and needs to be removed or exchanged within 3 months to prevent encrustation, infection, invasive procedures and/or permanent renal damage. Patient understands the stones will be treated at a later date once his infection has resolved. He elected to proceed with laser lithotripsy, understanding likely staged procedure given stone burden. Cont care postop on floor, f/u urine cultures and treat with sensitive abx for 7-10 days. Office will call to schedule definitive stone treatment. CIC technique and need for timely catheterization discussed. Place li catheter if patient develops fevers. Family inquired about alternatives to CIC. Discussed SPT and sacral neuromodulation. Encouraged them to further discuss with established urologist Dr. Rhodes.
[2023-09-28] MEDS: IOHEXOL 300 MG/ML - 50 ML BTL INJ (15:25)
--- NOTE | 2023-09-28 16:07 | PM.URSON ---
Urology Surgery Operative Note Operative Note Procedure Date: 09/28/23 Time Out Performed: yes Pre-op Diagnosis: 1. Bilateral ureteral stones 2. Left hydronephrosis 3. Urinary tract infection Post-op Diagnosis: same as pre-op (1. Bilateral ureteral stones 2. Bilateral hydronephrosis 3. Urinary tract infection) Procedures performed: Cystoscopy, bilateral retrograde pyelogram, bilateral ureteral stent placement Anesthesia: General-ET Primary Surgeon: Sara Bob Complications: none Estimated blood loss (mL): 0 Findings: Membranous urethral stricture requiring gentle manipulation of cystoscope to bypass. Patent prostatic urethra with R>L prostatomegaly. Widely patent, fixed bladder neck, elevated. 3+ trabeculated bladder, elevated trigone. Thick cloudy debris within dependent portion of bladder. Overall cloudy urine. Difficult to view stones on fluoroscopy. R RPG- hazy filling defect at UPJ consistent with known stone, mild hydronephrosis, no extravasation of contrast. Release of mildly cloudy urine with stent placement L RPG - mid ureter with narrow tortuosity. Left proximal ureteral filling defect, moderate hydronephrosis. Release of mildly cloudy urine with stent, hydronephrotic drip. J hooking of left distal ureter requiring direct visualization with ureteroscope to insert wire. Specimens: none Drains: 6Fr x 22-32 cm JJ bilateral ureteral stents Indications for Procedures: 78 year old male with DM2 and atonic bladder managed with CIC presented to the ER last night and was found to have a UTI and bilateral ureteral and kidney stones on CT scan: 1 cm R UPJ and 6 mm L proximal ureteral stone with hydronephrosis and additional BL kidney stones (near 2 cm total stone burden on left). After discussion of risks/benefits of management options, patient elected to proceed to the OR for cystoscopy, bilateral retrograde pyelogram, bilateral ureteral stent placement. He understands stones will be treated definitively at a later date due to UTI. Risks were discussed including but not limited to bleeding, pain, infection, damage to surrounding structures, inability to treat the stone/place a stent, and need for additional procedures. The patient understands the stent is not permanent and needs to be removed or exchanged within 3 months to prevent encrustation, infection, invasive procedures and/or permanent renal damage. Detailed description of Procedure: After informed consent was obtained, the patient was brought to the operating room and transferred onto the operating table in supine position. Sequential compression devices were placed on bilateral lower extremities. The patient received the appropriate dose of preoperative IV antibiotics and general anesthesia ETT was induced. They were positioned in modified dorsolithotomy with the appropriate pressure points padded, prepped, and draped in the usual sterile fashion for this procedure. An operative safety timeout was performed confirming the patient's identity, laterality and procedure, and all present agreed to proceed. I began by inserting a 22 [place] rigid cystoscope with 30 degree lens into the patient's urethra and bladder with mild difficulty due to stricture and fixed, elevated bladder neck. There were no bladder tumors, lesions, stones or foreign bodies. The bladder was irrigated until clear due to thick cloudy debris. Bilateral ureteral orifices were patent, elevated within severely trabeculated bladder. Findings as above. I turned my attention to the right ureteral orifice and a 6- [place] open-ended catheter was inserted into the ureteral orifice. Gentle instillation of dilute contrast was injected for retrograde pyelogram with findings as above. A sensor wire was inserted into the catheter to bypass the stone up to the renal pelvis confirmed on fluoroscopy and the catheter was removed. A 6Fr x 22-32cm JJ variable length ureteral stent was advanced over the wire, noting adequate curl in the renal pelvis and bladder on fluoroscopic and direct visualization. Attention was turned to the left UO and similarly, a retrograde pyelogram was obtained with findings as above. There was some difficulty advancing the guidewire into the ureter due to J hooking. Semirigid ureteroscope was used to intubate the left UO and once lumen was visualized, the guidewire was inserted up into the kidney without difficulty. A 6Fr x 22-32cm JJ variable length ureteral stent was advanced over the wire, noting adequate curl in the renal pelvis and bladder on fluoroscopic and direct visualization. The bladder was irrigated until clear and inspected one final time to ensure adequate position of stents and no undue trauma to the bladder was done. The bladder was drained and cystoscope was removed. The patient tolerated the procedure well without complication. The patient was awakened from anesthesia and sent to the PACU in stable condition. Plan: -Cont care on the floor per primary. -Cont empiric abx and f/u urine culture to ensure on sensitive abx x 7-10 days -If patient having stent pain: Tamsulosin 0.4mg qd, oxybutynin 5 mg TID PRN for bladder spasms/stent pain, pyridium 100-200mg TID PRN for dysuria. -Findings/plan discussed with pt's approved family members. Martha elects to proceed with staged bilateral ureteroscopy with laser lithotripsy, stone extraction, stent exchange. Will call to schedule once his infection has resolved.
--- NOTE | 2023-09-28 17:59 | NUTR.NU ---
Pt was admitted late 09/27/23 and discharged following sx. NPO status was maintained during his stay.
--- NOTE | 2023-09-29 15:09 | CM.DCFOLLOWU ---
1st attempt 09/29/23
--- NOTE | 2023-09-30 13:32 | CM.DCFOLLOWU ---
Person spoke with: patient How are you feeling? well How is your pain? none Did you understand your discharge instructions? yes Do you have any questions about your discharge instructions? no Were you given any prescriptions at discharge? yes Were you able to get your prescriptions filled? yes Do you understand how to take your medications as ordered? yes Do you have any questions about your follow up appointment and do you plan to keep your follow up appointment? no questions, advised pt to call urologist and PCP to schedule Is there anything else that you would like to discuss? no Questions/Comments/Concerns/Other: none
== END 2023-09-28 17:22 | disposition home or self-care (01) ==
LOC: ER 22:04 → MS 23:24
PROVIDERS: Emergency Medicine Emergency Medical Services; Registered Nurse; Urology; Admitting Provider Internal Medicine; Emergency Provider Emergency Medicine; PCP Internal Medicine; Visit Provider Internal Medicine
PROC: (CPT 52332; principal; 2023-09-28 14:00)
DX: T83.518A Infection and inflammatory reaction due to other urinary catheter, initial encounter (principal); N13.6 Pyonephrosis; N31.2 Flaccid neuropathic bladder, not elsewhere classified; I25.10 Atherosclerotic heart disease of native coronary artery without angina pectoris; I10 Essential (primary) hypertension; E11.9 Type 2 diabetes mellitus without complications; Z79.84 Long term (current) use of oral hypoglycemic drugs; Z79.85 Long-term (current) use of injectable non-insulin antidiabetic drugs; Z87.891 Personal history of nicotine dependence; B96.1 Klebsiella pneumoniae [K. pneumoniae] as the cause of diseases classified elsewhere
CPT/HCPCS: 52332; 36415; 74176; 74420; 80048; 80053; 81001; 82948; 83605; 83735; 85025; 85610; 85730; 87086; 87150; 87186; 93005; 94761; 96365; 96366; 96375; 99285; G0378; J0696; J2405; J2704; J3010; Q9967

== ENCOUNTER 2023-10-05 09:11 | Outpatient (OUT) | payer MEDICARE, SELFPAY ==
--- OUTSIDE RECORDS SUMMARY | 2023-10-05 09:18 | XMS_ITS | CCD ---
Author Organization [facility] Care Team Providers Care In Flight Technician Name Role Phone CACHORRO ROBLERO Referring Unavailable CLIFF RODRIGUEZ Attending Unavailable PROVIDER, UNKNOWN Admitting Unavailable PROVIDER, UNKNOWN Attending Unavailable PROVIDER, UNKNOWN Admitting Unavailable PROVIDER, UNKNOWN Admitting Unavailable PROVIDER, UNKNOWN Attending Unavailable Dion Griggs Unavailable Unavailable Unavailable Mapus, Tondra Unavailable DION GRIGGS Primary Care Physician [phone] MAPUS, TONDRA Admitting Unavailable MAPUS, TONDRA Attending Unavailable GABRIEL, DR LOPEZ Primary Care Unavailable MAPUS, TONDRA Consulting Unavailable MAPUS, TONDRA Admitting Unavailable MAPUS, TONDRA Attending Unavailable GABRIEL, DR LOPEZ Primary Care Unavailable MAP, TONDRA Consulting Unavailable HANK Valente, DR KAILEE Szymanski Admitting Unavaila hemal Valente, DR KAILEE Szymanski Attending Unavaila ble AGBRIEL, DR LOPEZ Primary Care Unavailable HANK Valente, DR KAILEE Szymanski Consulting Unavaila Dion Soto Unavailable Jaleesa Conn Attending Unavailable Jaleesa Conn Referring Unavailable Dr. Dion Griggs [facility] Unavai lable Mapus, Tondra K [...] or physicia Propensity to adverse reactions Comment:Done CelebCalls Other (1 source) No Known Medication Allergies; 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: [No Known Medication Allergies] Propensity to adverse reactions to drug (disorder) [facility] Repository Medications Current Medications Medication Drug Class(es) [...] 24, 2023 1:41pm [facility] cholecalciferol (Vitamin D-3) 25 MCG (1000 UT) tablet Take 1 tablet (1,000 Units) by mouth every other day. Active take 1 capsule by mo [facility] every twenty-four hours Vitamin D3 25 MCG (1000 UT) 1 capsule Orally Once a day Active take 1 capsule by mo [facility] every week Vitamin D3 10 MCG (400 [...] meals. Active take 2 tablets by mo [facility] once at breakfast, then take 1 tablet by mouth twice daily at dinner metFORMIN HCl ER 500 MG 2 tablet with breakfast and 1 tablet with dinner Orally BID Pt could not tolerate IR metformin d/t g/i s/e Active omega 3-jpy-cac-fish oil (Fish OiL) 1,000 mg (120 mg-180 mg) capsule (1 source) take 2 capsules by mouth every other day omega 2-zpt-oso-fish oil (Fish OiL) 1,000 mg (120 mg-180 [...] Daily, # 30 cap(s), Refills(s) 11, Pharmacy: [facility]/pharmacy #[id number], 168, cm, 02/25/22 9:50:00 EST, Height/Length Dosing, [...] 02/28/20 Status: Ordered take 1 tablet by [facility] every twenty-four hours Lisinopril 10 mg 1 tablet Orally daily Active [place] 9-Yjg-Ypw-Fish Oil (Fish Oil) 1,000 mg (120 mg-180 mg) capsule (3 sources) Start: 05-24-2023 End: 06-24-2023 take 1 capsule by mouth once daily [place] 1-Ypy-Zsx-Fish Oil (Fish Oil) 1,000 mg (120 mg-180 mg) capsule Discontinued 1 CAP PO Daily May 24, 2023 12:00am June 24, 2023 1:40pm Start: 05-24-2023 take 1 capsule by mo [facility] once daily [place] 2-Cxz-Tks-Fish Oil (Fish Oil) 1,000 mg (120 mg-180 [...] 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 [...] that needed to be cancelled by a recruiting scheduler and began yelling at the PAC, [...] a call. Patient voiced his understanding. Normal [facility] Automated urine specific gra vity by refractometryon 06-29-2023 Specific gravity Refractometry automated (U) [Rel density] 1.025 1.005-1.025 [facility] Bilirubin Auto test strip (U ) [Mass/Vol]on 06-29-2023 Bilirubin (U) [Mass/Vol] Negative NEGATIVE [facility] Color Auto (U)on 06-29-2023 Color (U) YELLOW YELLOW [facility] Glucose [Mass/volume] in Uri ne by Test stripon 06-29-2023 Glucose Test strip (U) [Mass/Vol] Negative NEGATIVE [facility] Ketones Auto test strip (U) [Mass/Vol]on 06-29-2023 Ketones (U) [Mass/Vol] Negative NEGATIVE [facility] - Microbiology an d Antimicrobial susceptibilityOrdered By: Dion Griggs on 06-29-2023 Bacteria identified Cx Nom (U) [facility] Protein Auto test strip (U) [Mass/Vol]on 06-29-2023 Protein (U) [Mass/Vol] Negative NEG/TRACE [facility] Specific gravity Auto test s trip (U) [Rel density]on 06-29-2023 Specific gravity (U) [Rel density] SL CLOUDY CLEAR [facility] Urine hemoglobin detection b y automated test stripon 06-29-2023 Hemoglobin Auto test strip Ql (U) LARGE Abnormal NEGATIVE [facility] Urine nitrite detection by a utomated test stripon 06-29-2023 Nitrite Auto test strip Ql (U) SMALL Abnormal NEGATIVE [facility] Nitrite Auto test strip Ql (U) Positive Abnormal NEGATIVE [facility] Urobilinogen Auto test strip (U) [Mass/Vol]on 06-29-2023 Urobilinogen Qn (U) 0.2 {Raeann'U}/dL 0.2-1.0 [facility] pH Auto test strip (U)on pH (U) 5.5 [pH] 5.0-9.0 [facility] Coding Summaryon 06-24-2023 Coding Summary HTMLBase 64 XelfnokqKHd4zLe+PGhlY WQ+TM4HMVOzB09qhWIurJ 7oF5CCLYpSUwkcFEIGNCa PMrGjylImNJ1pmHXaJSCm IC8+MW7sDIIpGncatDQyp 0G4nWW5J54npi3zGEukwY E6KBFrOxGutkiqk3juiAo 6IDcuNmluOyBt ZZUniI29IST3bW67Eh25i HJxvWDad3datPu8ZmEqYG CaOAH5cGtoHTrlg1PhNIS bU17qyOAoq4W8 XEVfcHjlfAHkDsLnaOG0v M1fJAlrcbxis0deotxoBn s9mh41mIFso4V3bPI1P7T pmiA5CSVosXVf FgoriMQEmW2bdwpcy0eax clrLjWmPUMsSDn0JOl6TN VjrKqzZbXpCN66GHZ5ZQQ pzySdW8SoNFCt fRbcUqW2e9M2Er8CR3CAR pdyT6OHEEUMLQdkgYK+PC 44uf93H7OlXacfPxk2OTF kSJP4wCD5xX3k PFViUKyyw8D7kBJ7I9Zxf zYxii3xy4kkRQMdJBzyS9 2jePPkd0Z5NEEbhKD2CCO llGdoEkVbgM62 Oyc+XDEwuRvlg8CxSlerq 2lhs6ajfDd7HkldWCMjvg HqlFudWMY8w4XfZm3uHIJ szJX0aPZ6uS5p NfSuKoQ4DZdaK263EhBsj DAwAingQ35jK3JyrWL+PH MxBzu2MXZdtMwsQU7zP5I hZGRpbmctbGVm pUbrCS8nXTDnbasdJFKan W5cEEGcR7a7ZyJiRvU1ZZ geV2NbUEBzqnfcGk34vH2 kCfXfDwJ4OYyu C2SzsnI2CGZnbUSlTQkkL UZ2X16qt7J9DWXbSBHvAD J1xII4yR8meJvpdlqzaYW mdDsgdmVydGlj XDdoTAmnO553FIAmfKkjY kNvZGluZyBEYXRlOiAgMD QvMjUvMjAyNDwvdGQ+PHR qYQO9qAepYDAe yDXxTVhlFa5qlSdhrQeiZ F3hXDGbtlebRXRgzO6kGE NpdHTmpOcmNF6aJHIurlo gw776LyFwSAC7 FSZvgYSbR6PgiP3rMiIwM YWrZLEzF5CasHPxGJpyU8 10JZxxHrA8UWAygoEsY8A sLWFsaWduOiB0 m4M9Ze2Tg3YhcelaL9Hys JYrDpVmWivoUFu7B7WgAs wvdHI+YS45IXKtAN48ZWx 9MRT8mWlmWLsj BDUgD9TohW1nNrUxNOEuU GRkOyc+PHRhYmxlIHdpZH RoPScxMDAlJyBzdHlsZT0 xAw6xBARcHEOl zXxkgIVeBaTby8crPAScS BwnBF1mqOzsJ9FymLC4KJ Mxi1v1Jb94W37rO0JjjHK +LCEbxVW2nZO9 mE1oVwGbHuH1JEftP452G aPtkEKhQtjvo1bbf6ygtN t6OmX1ZKKnasFsdGhqHJG 7k8RyIl40R11p IHdpZHRoPSIxNSUiIHZhb Cdgeu7lgM7yGq5+PGNvbC O6pLI4sH1xYvJwQdN7VXh wZ866CxQhuTXy Ieqiq7pbf4behLj6RvKkN IApfeJhxBgnKRT1k9WpUu 93T9RjqRwsi8YgDya4gz5 2sUXai2L4bRF6 H1BoEJPrjjsfvCZrvAswC Z7ySPWqlgpyVKKyrZ0tVF XyG8j5CsAmOjH8FRzrK7Z vqxW1QMSysCQm RVIkwGTFeU5mskgqa2paj ojlBxYyAXYdIMq5JYt7TZ HzfJaqKtYwGPH0YvZ7ICE 3gQKtmM6leSgc qkwbsF8xOca+VIM0bCZoe LYDNI7gEjuwtMH+PHRkIH X0oAgbOZbqIQCimL1lZJV xJ8u8ZoPaTpB2 DBasP2BfdoH3ATKleVFxQ QCcpEQXjN0vkloea4ebzi uzTgDsIQUyPBi5SQd1VFC saWduOiBsZWZ0 NmG0YNN3tWEgtS6ihWygd qmcvL7yDxh+QmlydGggRG P6PIk6F5NePzt3ZWOipJx hVE4rfOSsBKcl Zu4cwXjmpBleZE0zOAHbv ddpy947HjLno2zaAVDgxA CkBClvXQC1N90ol2N4MYQ yAZHfTMJ5xUR6 vU2qaVtwkpmdmIXvqJaxf sCxvOowHPggALmvF755PF RydSzwZrCbSXv5S9BvQel 0JPAkpOksNI6x hBDxNDobKz8hyKcpxMzuJ O0kYHGkemtuw374CxGkd5 ngOFUbcHYxQFmbOVY7O23 nk0I5SIJrOCNc FQX8mSQ3zN4hkLmnopbxe GVmdDsgdmVydGljYWwtYW chE758UXAykRzfKuOmeFe 8M3TyOsk7LHIh aIpwET2nhWKcHVzhOi2wh OvywXnnKJ7pBMIludmfy6 63VtGby5aeJVYuzJVsSYc zROF0D65qh5Y4 QCItWZEjSTM5sJC5qK8of GlnbjogbGVmdDsgdmVydG tfQObfRIdxQ397AXJjiNa nPlBhdGllbnQg DEmxQSq0Q2XeFijixAZ+P E96JSFnZE82fFRthSZcn4 fpaVy6RxIxEAQxESB4bWp cSQyep0GoXBPl Q38ikFVzu1T9ZVPbbDief PHlOrQbwRQ4kB9rQVknyg chb2wefevaFvmmm7vxtg6 3lK74X08vYWbv ZHRoPSIzMCUiIHZhbGlnb d8daG4aId5+LSDydCR3xP B1jH9jTAFwYcX7PVftO78 9InRvcCIvPjxj u5qgc6awcCu6NmJ4LWEza cPhvSokBSC6y9EjNg67R1 9sIHdpZHRoPSIyMCUiIHZ eqCorfh3zpS4l Ii8+YUSlrHU7nOJ5lD1wW kQmZrA0FKgrL738VgDpqD QxZpccM17mB4KpwCJ+PHR qBtp3LQMwbYfe IZ4ruKSoUIldQy4oWDT2X fTqMgNpPJjuZ3MyKNZwux ytwftqlQS1UWWvTOBjrR3 6Gu7ilNzbNNSy lKZEdE3rzefuv4dgjurrK aClRIGgLXn9HWw3DUKckM shOwVjWWP5RmF7KNR9rHR ssK7dcUjvnxgp bM0vR8OjJZXtciekDe16o F0zTaHzJxB5HKfyGob+Tk 6SOAWIITTKLNDNIQDwV2t MTElBTTwvdGQ+ VXYtNFC9uSmpHWnnEAAuh U2yMYCmC1t4XqXbAhB1TE aqP4CqQCKxwkjmGz72iB9 xQqTtTuW7VVul S4IahuY6HATduSHuFFwuC ZE3O65mw2G6GKFiJGKdRO W8ePO4dG2aqUpstovitPD mdDsgdmVydGlj JUfuBAquX711MNBguQfcY kL2JjL3PiT6ZPM8A5NhYh l7STDziUmgBL2edUOrZSp kFi8wlNjoyAkx ER4jJNHaqoayAPQasR9fI XJprYUrqGoiOD7zUJPikp whp733CnTnBOC2ZPPexQL oJ0OemB3uCgEn PNLsIAItH3HqmYDkWPogH 372KGmzYiG2UKCdziGjI9 ZpDHNgrOjaUbV9k6E3Yp7 3OCBZZWFyczwv dGQ+PDBgOTL7xBteQAycV ZPxbZ9eRTWhR2h3EeOuLl B2GRniR8AyTVNpxanfEu9 8sM3hSrYnNxV2 GIydJ4YcpsT2CDIslBKoY NskPFG2I27zs7U9FZLeIO MqVSK9gDC5kR6fxSitnao gbGVmdDsgdmVy uDsjFBjmUGubW218WTXkr AwxMq4OBVO9Q5TqXfx1TJ KiqHgfXR3ubFPgFGkuZg7 ilKmqlEpzKE8j VHSrliisKVWhwC7nOSZyb JUfxLvzBU2lVTBxaznow2 90SpLjOMK0FTAuiJBgQ3K pdP3qAlDkXQAb XTAmE6GwkTRbPSdzX673O XiiMhL6CCIicyQcL5BiQM DsePcgApA5t6C5Fg1PLYn qR1UsY3LsmZdb dGQ+ZB04ni43R6QwQbuzB ot8PWOgZYZ7pPA3lZ7rXW CzMVrul1T4nJU9J7EnwwU vik1eg1rjWCEx ZQlrG63hxDZcw5L9PNRlq DI7OIAovGsgHsOctS03Hx c+LVKaaWykj3MxQzbtl4z gr0jvvNk6YuIe TGHipbMwjNibBLK9g8PeX b55D06mEUxvLAPhNAAtCQ RkSIIfcOzfko3eyL2eOs0 +THJjwYJ0gSS8 fO1cOdKgMnO5VSzlZ726N rJmlUOuNxjjq0ots5nltU t8VqLtBQBceaXqeYbqLTY 5o0TwFa63V3Pt qFfpx5NlIwh9zl80nFEfw 8D7cGA1E9ScDJRwibqkwW ClwWauXF9sPSPugsmuTNL bjZ9dQCQuY9d5 RfIlIfR9TBlbL7JvxbK0D RHryREsABRgyVSKnU8sqe ssr0lmwnaiHwTnNEHxFCp 2IAv9SUPqeKdz CeTuMRE6KnP1NNI4iFVua F8tyNvweaybtZ9hMdg+UG r1f3aadVXgXW0nsMI8WA1 1LT04jYMfg7Y8 cRU8H3EtQLEsbueynyrdd RT8AIDfCJVkvA98Ti2rtD ukKp8aYAAyZAQ0REDuxWY uG9GznP9rTrGk CUYjLEMhD4KdqTFqHIwmH 406RDylPuG3ZYRaceXpT2 WrTHDxfVsiBnI4z9R7Ee5 BRQ92BE08TR38 gYNao5A2uRK5L3LgFWZyt prebgpfsEC1URYnURObhM 71Sz8esSelFs4rIZDvPDA 4HNCsnHVdA7Jt dR9bDsAtFXUfYKRyO1Dpb EZhJUhwY782WQooVdR0NV TmhdUjH9ObESFfsDsbKuQ 7v4M6Qr0PXx16 JP05HC24cGKtz4W0sTC9D 3YfWCPflecplrnwlLE9JM PhZLIghI25Wx4ooCupFr7 xPHMlIIP5WKGn cSFqI2JiyV4hMsMcBSLfP HMaA0OmhOQsDGmnD658LW gyLpC2OPMaetFkQ8IeMZF yxDpqRhW8d7U4 Vv4HQPfhwbv4I7BbBhqwf HI+SN39SNQaPX20zVItmR Uix5wwaZx7WmIwSXJuYZS 3bFhfLPrqn7Ka ZXI (more content not included)... [facility] HbA1c HPLC (Bld) [Mass fract ion]on 06-24-2023 HbA1c (Bld) [Mass fraction] 6.9 % [facility] No Panel Informationon 06-23 Bedside Glucose 103 [facility] Cholesterol in LDL Calc [Mas s/Vol]on 06-22-2023 Cholesterol in LDL [Mass/Vol] 40.2 mg/dL [facility] Comment on above: <100 mg/dl TJAVBQI42 0-129 mg/dl NEAR OR ABOVE ZFVOPUW869-023 mg/dl BORDERLINE YJZL723-836 mg/dl HIGH>190 mg/dl VERY HIGH Cholesterol in VLDL Calc [Ma ss/Vol]on 06-22-2023 Cholesterol in VLDL [Mass/Vol] 12.8 mg/dL [facility] Estimated glomerular filtrat ion rate (GFR) non- Americanon 06-22-2023 GFR/1.73 sq M.predicted among non-blacks MDRD (S/P/Bld) [Vol rate/Area] mL/min/{1.73_m2} >=60 [facility] Globulin Calc (S) [Mass/Vol] on 06-22-2023 Globulin (S) [Mass/Vol] 3.6 g/dL [facility] - Chemistry and C hemistry - challengeon 06-22-2023 Albumin [Mass/Vol] 3.7 g/dL 3.4-5.0 [facility] ALP [Catalytic activity/Vol] 48 U/L 46-116 [facility] ALT [Catalytic activity/Vol] 34 U/L 16-63 [facility] AST [Catalytic activity/Vol] 20 U/L 15-37 [facility] Bilirubin [Mass/Vol] 0.5 mg/dL 0.2-1.0 [facility] Calcium [Mass/Vol] 9.2 mg/dL 8.5-10.1 [facility] Chloride [Moles/Vol] 106 mmol/L 98-107 [facility] Cholesterol [Mass/Vol] 102 mg/dL <=200 [facility] Cholesterol in HDL [Mass/Vol] 49 mg/dL 40-60 [facility] Comment on above: > or =60 mg/dl - LOW CARDIOVASCULAR RISK<40 mg/dl - HIGH CARDIOVASCULAR RISK CO2 [Moles/Vol] 26.8 mmol/L 21.0-32.0 [facility] Cobalamin (Vitamin B12) [Mass/Vol] 456.0 pg/mL 193.0-986.0 [facility] Creatinine [Mass/Vol] 1.04 mg/dL 0.70-1.30 [facility] GFR/1.73 sq M.predicted MDRD (S/P/Bld) [Vol rate/Area] mL/min/{1.73_m2} >=60 [facility] Glucose [Mass/Vol] 82 mg/dL 74-106 [facility] Potassium [Moles/Vol] 4.2 mmol/L 3.5-5.1 [facility] Protein [Mass/Vol] 7.3 g/dL 6.4-8.2 [facility] Sodium [Moles/Vol] 143 mmol/L 136-145 [facility] Triglyceride [Mass/Vol] 64 mg/dL <=150 [facility] Urea nitrogen [Mass/Vol] 19.0 mg/dL High 7.0-18.0 [facility] Urea nitrogen/Creatinine [Mass ratio] 18.3 mg/mg [facility] Microalbumin [Mass/volume] i n Urineon 06-22-2023 Albumin DL <= 20 mg/L (U) [Mass/Vol] 3.9 mg/dL <=30.0 [facility] No Panel Informationon 06-21 Urine Random Creatinine 136.06 mg/dL 20.0 0-300.0 0 [facility] Serum or plasma albumin/glob ulin mass ratioon 06-22-2023 Albumin/Globulin [Mass ratio] 1.0 {ratio} [facility] Serum or plasma anion gap de terminationon 06-22-2023 Anion gap [Moles/Vol] 14.4 mmol/L [facility] Serum or plasma total choles terol/high density lipoprotein (HDL) cholesterol mass ceferino 06-22-2023 Cholesterol.total/Celia sterol in HDL [Mass ratio] 2.1 {ratio} [facility] Comment on above: 3.3 - 4.4 LOW RISK4. 4 - 7.1 AVERAGE RISK7.1 - 11.0 MODERATE RISK>11.0 HIGH RISK Urine microalbumin/creatinin e mass ratioon 06-22-2023 Albumin/Creatinine DL <= 20 mg/L (U) [Mass ratio] 28.6 mg/g 0.0-29.9 [facility] Comment on above: NO MICROALBUMINURIA 0-29 MG/GCLINICAL MICROALBUMINURIA 30-300 MG/GMACROALBUMINURIA >300 MG/G Provider Orderson 06-18-2023 Provider Orders [id number]#1. 00[facility] Consent Formson 06-16-2023 Consent Forms [id number]#1.00 [facility] Inpatient Patient Summaryon 06-15-2023 Inpatient Patient Summary [facility] [address] [place] [address] Patient Discharge Instructions Name: JOSEPH ESCALONA : 1945 Patient Address: [address] [place] [address] Primary Care Provider: Name: Dion Griggs After you are discharged if you find you have any questions, please, call [phone] ext [phone] to speak to a nurse. Discharge Diagnosis: [...] problems; contact the [facility] 21/09 Crisis Hotline -Text 4HCRS fd 547247. If you received any narcotics, sedation, or [...] business decisions or sign any legal documents [facility] would like to thank you for allowing [...] healthy ch (more content not included)... Normal [facility] MAGR Intraoperative Recordon 06-15-2023 MAGR Intraoperative Record MAGR Intra-Op Record Summary Primary Physician: Ton Rhodes MD Finalized Date/Time: 06/15/23 13:21:43 Pt. Name: JOSEPH ESCALONA/Sex: 1945 MALE Med Rec #: [id number] Physician: Ton Rhodes MD Financial #: [id number] Pt. Type: D Room/Bed: / Admit/Disch: 06/15/23 [...] MD, Erica RN Adkins, Brittany E CSFA CREDIT PORTFOLIO MANAGER Role Performed Surgeon - Primary Patient Insurance Clerk Entry Level Lab Technician Time In 06/15/23 13:16:00 06/15/23 13:12:00 06/15/23 13:12:00 Time Out 06/15/23 13:21:00 06/15/23 13:21:00 06/15/23 13:21:00 Procedure Cystoscopy Local Cystoscopy Local Cystoscopy Local Last Modified By: Parisa Vargas RN, Erica RN Baumer, Erica RN 06/15/23 13:21:22 06/15/23 13:21:22 06/15/23 13:21:22 Entry 4 Case Attendee Jerri Reynolds CREDIT PORTFOLIO MANAGER Role Performed Scrub Personnel Time In 06/15/23 13:12:00 Time Out 06/15/23 13:21:00 Procedure Cystoscopy Local Last Modified By: Parisa Vargas RN 06/15/23 13:21:22 Surgical Procedures MAGR Pre-Care Text: A.20 Verifies operative procedure, surgical site, and laterality Im.150 Develops individualized plan of care Entry 1 Procedure Cystoscopy Local Primary Procedure Yes Primary Surgeon Ton Rhdoes MD Surgeon Comment CYSTOSCOPY Start 06/15/23 13:17:00 [...] 13:16:00 Participants Parisa Vargas RN, Angeles Rothman CREDIT PORTFOLIO MANAGER, Jerri Reynolds CREDIT PORTFOLIO MANAGER Last Modified By: Parisa Vargas RN 06/15/23 [...] Perin (more content not included)... [facility] MAGR Preoperative Recordon 0 06-15-2023 MAGR Preoperative Record MAGR Pre-Op Record Summary Primary Physician: Ton Rhodes MD Finalized Date/Time: 06/15/23 13:46:25 Pt. Name: JOSEPH ESCALONA /Sex: 1945 MALE Med Rec #: [id number] Physician: Ton Rhodes MD Financial #: [id number] Pt. Type: D Room/Bed: / Admit/Disch: 06/15/23 [...] Guera Pascual RN 06/15/23 13:46 [facility] Patient Handouton 06-15-2023 Patient Handout [facility] ED Note-Physicianon 05-27-19 ED Note-Physician [id number] .00TIFF [facility] Automated epithelial cells c ount in urine sediment (number/area)on 05-24-2023 Epithelial cells Auto (Urine sed) [#/Area] RARE #/LPF NONE/RARE [facility] Automated leukocytes count i n urine sediment (number/area)on 05-24-2023 WBC Auto (Urine sed) [#/Area] 50-75 #/HPF 0-2 [facility] Automated urine specific gra vity by refractometryon 05-24-2023 Specific gravity Refractometry automated (U) [Rel density] >=1.030 1.005-1.025 [facility] Basophils Auto (Bld) [#/Vol] on 05-24-2023 Basophils (Bld) [#/Vol] 0.0 10 3/uL 0.0-0.1 [facility] Basophils/100 WBC Auto (Bld) on 05-24-2023 Basophils/100 WBC (Bld) 0.4 % 0.2-2.0 [facility] Bilirubin Auto test strip (U ) [Mass/Vol]on 05-24-2023 Bilirubin (U) [Mass/Vol] Negative NEGATIVE [facility] Casts typing in urine sedime nt by light microscopyon 05-24-2023 Casts LM Nom (Urine sed) NONE SEEN #/LPF NONE SEEN [facility] Color Auto (U)on 05-24-2023 Color (U) YELLOW YELLOW [facility] Eosinophils/100 WBC Auto (Bl d)on 05-24-2023 Eosinophils/100 WBC (Bld) 1.1 % 0.9-7.0 [facility] Erythrocyte distribution wid th Auto (RBC) [Ratio]on 05-24-2023 Erythrocyte distribution width (RBC) [Ratio] 13.0 % 11.0-15.0 [facility] Estimated glomerular filtrat ion rate (GFR) non- Americanon 05-24-2023 GFR/1.73 sq M.predicted among non-blacks MDRD (S/P/Bld) [Vol rate/Area] mL/min/{1.73_m2} >=60 [facility] Globulin Calc (S) [Mass/Vol] on 05-24-2023 Globulin (S) [Mass/Vol] 4.0 g/dL [facility] Hematocrit Auto (Bld) [Volum e fraction]on 05-24-2023 Hematocrit (Bld) [Volume fraction] 40.9 % 42.0-54.0 [facility] Hemoglobin [Mass/volume] in Bloodon 05-24-2023 Hemoglobin (Bld) [Mass/Vol] 13.6 g/dL 14.0-18.0 [facility] Ketones Auto test strip (U) [Mass/Vol]on 05-24-2023 Ketones (U) [Mass/Vol] TRACE mg/dL NEGATIVE [facility] Laboratory - Chemistry and C hemistry - challengeon 05-24-2023 Albumin [Mass/Vol] 3.6 g/dL 3.4-5.0 [facility] ALP [Catalytic activity/Vol] 63 U/L 46-116 [facility] ALT [Catalytic activity/Vol] 24 U/L 16-63 [facility] AST [Catalytic activity/Vol] 15 U/L 15-37 [facility] Bilirubin [Mass/Vol] 0.6 mg/dL 0.2-1.0 [facility] Calcium [Mass/Vol] 9.0 mg/dL 8.5-10.1 [facility] Chloride [Moles/Vol] 102 mmol/L 98-107 [facility] CO2 [Moles/Vol] 26.5 mmol/L 21.0-32.0 [facility] Creatinine [Mass/Vol] 1.12 mg/dL 0.70-1.30 [facility] GFR/1.73 sq M.predicted MDRD (S/P/Bld) [Vol rate/Area] mL/min/{1.73_m2} >=60 [facility] Glucose [Mass/Vol] 213 mg/dL 74-106 [facility] Lactate [Moles/Vol] 1.6 mmol/L 0.4-2.0 [facility] Lipase [Catalytic activity/Vol] 23.0 U/L 16.0-77.0 [facility] Potassium [Moles/Vol] 3.6 mmol/L 3.5-5.1 [facility] Protein [Mass/Vol] 7.6 g/dL 6.4-8.2 [facility] Sodium [Moles/Vol] 140 mmol/L 136-145 [facility] Urea nitrogen [Mass/Vol] 15.0 mg/dL 7.0-18.0 [facility] Urea nitrogen/Creatinine [Mass ratio] 13.4 mg/mg [facility] Laboratory - Hematology and Cell countson 05-24-2023 Immature granulocytes/100 WBC (Bld) 0.6 % 0.0-0.5 [facility] - Microbiology an d Antimicrobial susceptibilityon 05-24-2023 S. agalactiae Org specific cx Ql (Vag fld) Not detected NOT DETECTE [facility] Leukocytes [#/volume] correc bethany for nucleated erythrocytes in Blood by Automated counon 05-24-2023 WBC corrected for nucl RBC Auto (Bld) [#/Vol] 10.8 10 3/uL 4.0-11.0 [facility] Lymphocytes Auto (Bld) [#/Vo l]on 05-24-2023 Lymphocytes (Bld) [#/Vol] 0.8 10 3/uL 1.2-3.8 [facility] Lymphocytes/100 WBC Auto (Bl d)on 05-24-2023 Lymphocytes/100 WBC (Bld) 7.4 % 20.5-60.0 [facility] MCH Auto (RBC) [Entitic mass ]on 05-24-2023 MCH (RBC) [Entitic mass] 28.8 pg 25.9-34.0 [facility] MCHC Auto (RBC) [Mass/Vol]on 05-24-2023 MCHC (RBC) [Mass/Vol] 33.3 g/dL 29.9-35.2 [facility] MCV Auto (RBC) [Entitic vol] on 05-24-2023 MCV (RBC) [Entitic vol] 86.5 fL 80.0-94.0 [facility] Monocytes Auto (Bld) [#/Vol] on 05-24-2023 Monocytes (Bld) [#/Vol] 1.1 10 3/uL 0.3-0.8 [facility] Monocytes/100 WBC Auto (Bld) on 05-24-2023 Monocytes/100 WBC (Bld) 9.9 % 1.7-12.0 [facility] Mucus LM Ql (Urine sed)on Mucus Ql (Urine sed) MODERATE NONE SEEN [facility] Neutrophils Auto (Bld) [#/Vo l]on 05-24-2023 Neutrophils (Bld) [#/Vol] 8.8 10 3/uL 1.4-6.5 [facility] Neutrophils/100 WBC Auto (Bl d)on 05-24-2023 Neutrophils/100 WBC (Bld) 80.6 % 43.0-75.0 [facility] No Panel Informationon 05-23 Urine Culture Reflexed YES [facility] Urine Microscopic Review YES [facility] A.calcoaceticus-kavya ii cmplx PCR Not detected NOT DETECTE [facility] Bacteroides fragilis (PCR) Not detected NOT DETECTE [facility] Blood Culture Source blood [facility] Jhoana albicans (PCR) Not detected NOT DETECTE [facility] Jhoana auris (PCR) Not detected NOT DETECTE [facility] Jhoana glabrata (PCR) Not detected NOT DETECTE [facility] Jhoana krusei (PCR) Not detected NOT DETECTE [facility] Jhoana parapsilosis (PCR) Not detected NOT DETECTE [facility] Jhoana tropicalis (PCR) Not detected NOT DETECTE [facility] Crypto neoformans/gattii (PCR)(LAB) Not detected NOT DETECTE [facility] CTX-M ESBL (PCR) NOT APPLICABLE NOT DETECTE [facility] Enterobacter cloacae complex (PCR) Not detected NOT DETECTE [facility] Enterobacterales (PCR) Not detected NOT DETECTE [facility] Enterococcus faecalis PCR Not detected NOT DETECTE [facility] Enterococcus faecium PCR Not detected NOT DETECTE [facility] Escherichia coli Result Not detected NOT DETECT E [facility] Haemophilus influenzae DNA Not detected NOT DETECTE [facility] IMP (blaIMP) Carbap Res Gene (PCR) NOT APPLICABLE NOT DETECTE [facility] Klebsiella aerogenes (PCR) Not detected NOT DETECTE [facility] Klebsiella oxytoca (PCR) Not detected NOT DETECTE [facility] Klebsiella pneumoniae group (PCR) Not detected NOT DETECTE [facility] KPC (blaKPC) Detection (PCR) NOT APPLICABLE NOT DETECTE [facility] Listeria monocytogenes (PCR) Not detected NOT DETECTE [facility] MCR-1 Resistance Gene NOT APPLICABLE NOT DETECT E [facility] mecA/C & MREJ Antimicrob Resist Gen NOT APPLICABLE NOT DETECTE [facility] mecA/C-Methicillin Resistance Gene NOT APPLICABLE NOT DETECTE [facility] NDM (blaNDM) Detection (PCR) NOT APPLICABLE NOT DETECTE [facility] Neisseria meningitidis (PCR) Not detected NOT DETECTE [facility] Proteus species (PCR) Not detected NOT DETECTE [facility] Pseudomonas aeruginosa (PCR) Not detected NOT DETECTE [facility] Salmonella spp. (PCR) Not detected NOT DETECTE [facility] Serratia marcescens (PCR) Not detected NOT DETECTE [facility] Staphylococcus aureus (PCR)(LAB) Not detected NOT DETECTE [facility] Staphylococcus epidermidis (PCR) Not detected NOT DETECTE [facility] Staphylococcus lugdunensis (TEM-PCR Not detected NOT DETECTE [facility] Staphylococcus species (PCR) Not detected NOT DETECTE [facility] Stenotroph. maltophilia (PCR) Not detected NOT DETECTE [facility] Streptococcus pneumoniae (PCR) Not detected NOT DETECTE [facility] Streptococcus pyogenes (PCR)(LAB) Not detected NOT DETECTE [facility] Streptococcus species (PCR) Not detected NOT DETECTE [facility] Syn OXA-48-like Carb Res Gene (PCR) NOT APPLICABLE NOT DETECTE [facility] Regina/B-Vancomycin Resistance Genes NOT APPLICABLE NOT DETECTE [facility] VIM (blaVIM) Carbap Res Gene (PCR) NOT APPLICABLE NOT DETECTE [facility] Eosinophils # (Auto) 0.1 10 3/uL 0.0-0.7 [facility] Immature Granulocyte # (Auto) 0.06 10 3/uL 0.00-0.03 [facility] No Panel InformationOrdered By: Dion Griggs on 05-24-2023 Blood Culture 2 [facility] Blood Culture 1 [facility] Platelet mean volume Auto (B ld) [Entitic vol]on 05-24-2023 Platelet mean volume (Bld) [Entitic vol] 8.8 fL 9.5-13.5 [facility] Platelets Auto (Bld) [#/Vol] on 05-24-2023 Platelets (Bld) [#/Vol] 244 10 3/uL 150-450 [facility] Protein Auto test strip (U) [Mass/Vol]on 05-24-2023 Protein (U) [Mass/Vol] 30 mg/dL NEG/TRACE [facility] RBC Auto (Bld) [#/Vol]on RBC (Bld) [#/Vol] 4.73 10 6/uL 4.70-6.10 [facility] Serum or plasma albumin/glob ulin mass ratioon 05-24-2023 Albumin/Globulin [Mass ratio] 0.9 {ratio} [facility] Serum or plasma anion gap de terminationon 05-24-2023 Anion gap [Moles/Vol] 15.1 mmol/L [facility] Specific gravity Auto test s trip (U) [Rel density]on 05-24-2023 Specific gravity (U) [Rel density] CLEAR CLEAR [facility] Urine bacteria detection by automated methodon 05-24-2023 Bacteria Auto Ql (U) SMALL #/HPF NONE SEEN [facility] Urine glucose measurement by test strip (mass/volume)on 05-24-2023 Glucose Test strip (U) [Mass/Vol] >=1000 mg/dL NEGATIVE [facility] Urine hemoglobin detection b y automated test stripon 05-24-2023 Hemoglobin Auto test strip Ql (U) LARGE NEGATIVE [facility] Urine nitrite detection by a utomated test stripon 05-24-2023 Nitrite Auto test strip Ql (U) TRACE NEGATIVE [facility] Nitrite Auto test strip Ql (U) Negative NEGATIVE [facility] Urine sediment crystal ident ification by light microscopyon 05-24-2023 Crystals LM Nom (Urine sed) None Seen #/HPF None Seen [facility] Urine sediment leukocyte cou nt by microscopy (number/high power field)on 05-24-2023 WBC LM.HPF (Urine sed) [#/Area] 5-10 #/HPF NONE SEEN [facility] Urobilinogen Auto test strip (U) [Mass/Vol]on 05-24-2023 Urobilinogen Qn (U) 0.2 {Raeann'U}/dL 0.2-1.0 [facility] pH Auto test strip (U)on pH (U) 5.5 [pH] 5.0-9.0 [facility] Automated epithelial cells c ount in urine sediment (number/area)on 05-20-2023 Epithelial cells Auto (Urine sed) [#/Area] NONE SEEN #/LPF NONE/RARE [facility] Automated leukocytes count i n urine sediment (number/area)on 05-20-2023 WBC Auto (Urine sed) [#/Area] 5-10 #/HPF 0-2 [facility] Automated urine specific gra vity by refractometryon 05-20-2023 Specific gravity Refractometry automated (U) [Rel density] 1.025 1.005-1.025 [facility] Basophils Auto (Bld) [#/Vol] on 05-20-2023 Basophils (Bld) [#/Vol] 0.1 10 3/uL 0.0-0.1 [facility] Basophils/100 WBC Auto (Bld) on 05-20-2023 Basophils/100 WBC (Bld) 0.6 % 0.2-2.0 [facility] Bilirubin Auto test strip (U ) [Mass/Vol]on 05-20-2023 Bilirubin (U) [Mass/Vol] Negative NEGATIVE [facility] Casts typing in urine sedime nt by light microscopyon 05-20-2023 Casts LM Nom (Urine sed) NONE SEEN #/LPF NONE SEEN [facility] Color Auto (U)on 05-20-2023 Color (U) YELLOW YELLOW [facility] Eosinophils/100 WBC Auto (Bl d)on 05-20-2023 Eosinophils/100 WBC (Bld) 0.9 % 0.9-7.0 [facility] Erythrocyte distribution wid th Auto (RBC) [Ratio]on 05-20-2023 Erythrocyte distribution width (RBC) [Ratio] 13.2 % 11.0-15.0 [facility] Estimated glomerular filtrat ion rate (GFR) non- Americanon 05-20-2023 GFR/1.73 sq M.predicted among non-blacks MDRD (S/P/Bld) [Vol rate/Area] mL/min/{1.73_m2} >=60 [facility] Globulin Calc (S) [Mass/Vol] on 05-20-2023 Globulin (S) [Mass/Vol] 3.7 g/dL [facility] Hematocrit Auto (Bld) [Volum e fraction]on 05-20-2023 Hematocrit (Bld) [Volume fraction] 42.2 % 42.0-54.0 [facility] Hemoglobin [Mass/volume] in Bloodon 05-20-2023 Hemoglobin (Bld) [Mass/Vol] 14.2 g/dL 14.0-18.0 [facility] Ketones Auto test strip (U) [Mass/Vol]on 05-20-2023 Ketones (U) [Mass/Vol] TRACE mg/dL NEGATIVE [facility] Laboratory - Chemistry and C hemistry - challengeon 05-20-2023 Albumin [Mass/Vol] 3.8 g/dL 3.4-5.0 [facility] ALP [Catalytic activity/Vol] 55 U/L 46-116 [facility] ALT [Catalytic activity/Vol] 35 U/L 16-63 [facility] AST [Catalytic activity/Vol] 17 U/L 15-37 [facility] Bilirubin [Mass/Vol] 0.6 mg/dL 0.2-1.0 [facility] Calcium [Mass/Vol] 8.6 mg/dL 8.5-10.1 [facility] Chloride [Moles/Vol] 101 mmol/L 98-107 [facility] CO2 [Moles/Vol] 25.2 mmol/L 21.0-32.0 [facility] Creatinine [Mass/Vol] 1.02 mg/dL 0.70-1.30 [facility] GFR/1.73 sq M.predicted MDRD (S/P/Bld) [Vol rate/Area] mL/min/{1.73_m2} >=60 [facility] Glucose [Mass/Vol] 228 mg/dL 74-106 [facility] Lactate [Moles/Vol] 2.1 mmol/L 0.4-2.0 [facility] Lipase [Catalytic activity/Vol] 73.0 U/L 16.0-77.0 [facility] Potassium [Moles/Vol] 3.9 mmol/L 3.5-5.1 [facility] Protein [Mass/Vol] 7.5 g/dL 6.4-8.2 [facility] Sodium [Moles/Vol] 137 mmol/L 136-145 [facility] Urea nitrogen [Mass/Vol] 15.0 mg/dL 7.0-18.0 [facility] Urea nitrogen/Creatinine [Mass ratio] 14.7 mg/mg [facility] Laboratory - Hematology and Cell countson 05-20-2023 Immature granulocytes/100 WBC (Bld) 0.6 % 0.0-0.5 [facility] Laboratory - Microbiology an d Antimicrobial susceptibilityOrdered By: Dion Griggs on 05-20-2023 Bacteria identified Cx Nom (U) [facility] Leukocytes [#/volume] correc bethany for nucleated erythrocytes in Blood by Automated counon 05-20-2023 WBC corrected for nucl RBC Auto (Bld) [#/Vol] 9.9 10 3/uL 4.0-11.0 [facility] Lymphocytes Auto (Bld) [#/Vo l]on 05-20-2023 Lymphocytes (Bld) [#/Vol] 0.9 10 3/uL 1.2-3.8 [facility] Lymphocytes/100 WBC Auto (Bl d)on 05-20-2023 Lymphocytes/100 WBC (Bld) 9.1 % 20.5-60.0 [facility] MCH Auto (RBC) [Entitic mass ]on 05-20-2023 MCH (RBC) [Entitic mass] 29.2 pg 25.9-34.0 [facility] MCHC Auto (RBC) [Mass/Vol]on 05-20-2023 MCHC (RBC) [Mass/Vol] 33.6 g/dL 29.9-35.2 [facility] MCV Auto (RBC) [Entitic vol] on 05-20-2023 MCV (RBC) [Entitic vol] 86.8 fL 80.0-94.0 [facility] Monocytes Auto (Bld) [#/Vol] on 05-20-2023 Monocytes (Bld) [#/Vol] 0.9 10 3/uL 0.3-0.8 [facility] Monocytes/100 WBC Auto (Bld) on 05-20-2023 Monocytes/100 WBC (Bld) 9.1 % 1.7-12.0 [facility] Mucus LM Ql (Urine sed)on Mucus Ql (Urine sed) NONE SEEN NONE SEEN [facility] Neutrophils Auto (Bld) [#/Vo l]on 05-20-2023 Neutrophils (Bld) [#/Vol] 7.9 10 3/uL 1.4-6.5 [facility] Neutrophils/100 WBC Auto (Bl d)on 05-20-2023 Neutrophils/100 WBC (Bld) 79.7 % 43.0-75.0 [facility] No Panel InformationOrdered By: Dion Griggs on 05-20-2023 Blood Culture 2 [facility] Blood Culture 1 [facility] No Panel Informationon 05-19 Eosinophils # (Auto) 0.1 10 3/uL 0.0-0.7 [facility] Immature Granulocyte # (Auto) 0.06 10 3/uL 0.00-0.03 [facility] Urine Culture Reflexed YES [facility] Urine Microscopic Review YES [facility] Platelet mean volume Auto (B ld) [Entitic vol]on 05-20-2023 Platelet mean volume (Bld) [Entitic vol] 8.5 fL 9.5-13.5 [facility] Platelets Auto (Bld) [#/Vol] on 05-20-2023 Platelets (Bld) [#/Vol] 276 10 3/uL 150-450 [facility] Protein Auto test strip (U) [Mass/Vol]on 05-20-2023 Protein (U) [Mass/Vol] 30 mg/dL NEG/TRACE [facility] RBC Auto (Bld) [#/Vol]on RBC (Bld) [#/Vol] 4.86 10 6/uL 4.70-6.10 [facility] Serum or plasma albumin/glob ulin mass ratioon 05-20-2023 Albumin/Globulin [Mass ratio] 1.0 {ratio} [facility] Serum or plasma anion gap de terminationon 05-20-2023 Anion gap [Moles/Vol] 14.7 mmol/L [facility] Specific gravity Auto test s trip (U) [Rel density]on 05-20-2023 Specific gravity (U) [Rel density] CLEAR CLEAR [facility] Urine bacteria detection by automated methodon 05-20-2023 Bacteria Auto Ql (U) MODERATE #/HPF NONE SEEN [facility] Urine glucose measurement by test strip (mass/volume)on 05-20-2023 Glucose Test strip (U) [Mass/Vol] >=1000 mg/dL NEGATIVE [facility] Urine hemoglobin detection b y automated test stripon 05-20-2023 Hemoglobin Auto test strip Ql (U) LARGE NEGATIVE [facility] Urine nitrite detection by a utomated test stripon 05-20-2023 Nitrite Auto test strip Ql (U) TRACE NEGATIVE [facility] Nitrite Auto test strip Ql (U) Positive NEGATIVE [facility] Urine sediment crystal ident ification by light microscopyon 05-20-2023 Crystals LM Nom (Urine sed) None Seen #/HPF None Seen [facility] Urine sediment leukocyte cou nt by microscopy (number/high power field)on 05-20-2023 WBC LM.HPF (Urine sed) [#/Area] 5-10 #/HPF NONE SEEN [facility] Urobilinogen Auto test strip (U) [Mass/Vol]on 05-20-2023 Urobilinogen Qn (U) 0.2 {Raeann'U}/dL 0.2-1.0 [facility] pH Auto test strip (U)on pH (U) 5.5 [pH] 5.0-9.0 [facility] ED Note-Physicianon 05-10-19 ED Note-Physician [id number]#1 .00TIFF Normal [facility] Automated epithelial cells c ount in urine sediment (number/area)on 05-04-2023 Epithelial cells Auto (Urine sed) [#/Area] FEW #/LPF NONE/RARE [facility] Automated leukocytes count i n urine sediment (number/area)on 05-04-2023 WBC Auto (Urine sed) [#/Area] 5-10 #/HPF 0-2 [facility] Automated urine sediment negra cium oxalate crystal count by microscopy (number/high powon 05-04-2023 Calcium oxalate crystals LM.HPF (Urine sed) [#/Area] RARE [facility] Automated urine specific gra vity by refractometryon 05-04-2023 Specific gravity Refractometry automated (U) [Rel density] 1.025 1.005-1.025 [facility] Bilirubin Auto test strip (U ) [Mass/Vol]on 05-04-2023 Bilirubin (U) [Mass/Vol] Negative NEGATIVE [facility] Casts typing in urine sedime nt by light microscopyon 05-04-2023 Casts LM Nom (Urine sed) NONE SEEN #/LPF NONE SEEN [facility] Color Auto (U)on 05-04-2023 Color (U) LT. YELLOW YELLOW [facility] Ketones Auto test strip (U) [Mass/Vol]on 05-04-2023 Ketones (U) [Mass/Vol] TRACE mg/dL NEGATIVE F [facility] Mucus LM Ql (Urine sed)on Mucus Ql (Urine sed) NONE SEEN NONE SEEN [facility] Protein Auto test strip (U) [Mass/Vol]on 05-04-2023 Protein (U) [Mass/Vol] 30 mg/dL NEG/TRACE [facility] Specific gravity Auto test s trip (U) [Rel density]on 05-04-2023 Specific gravity (U) [Rel density] CLEAR CLEAR [facility] Urine bacteria detection by automated methodon 05-04-2023 Bacteria Auto Ql (U) MODERATE #/HPF NONE SEEN [facility] Urine glucose measurement by test strip (mass/volume)on 05-04-2023 Glucose Test strip (U) [Mass/Vol] 100 mg/dL NEGATIVE [facility] Urine hemoglobin detection b y automated test stripon 05-04-2023 Hemoglobin Auto test strip Ql (U) LARGE NEGATIVE [facility] Urine nitrite detection by a utomated test stripon 05-04-2023 Nitrite Auto test strip Ql (U) LARGE NEGATIVE [facility] Nitrite Auto test strip Ql (U) Positive NEGATIVE [facility] Urine sediment crystal ident ification by light microscopyon 05-04-2023 Crystals LM Nom (Urine sed) Seen #/HPF None Seen [facility] Urine sediment leukocyte cou nt by microscopy (number/high power field)on 05-04-2023 WBC LM.HPF (Urine sed) [#/Area] 20-50 #/HPF NONE SEEN [facility] Urobilinogen Auto test strip (U) [Mass/Vol]on 05-04-2023 Urobilinogen Qn (U) 0.2 {Raeann'U}/dL 0.2-1.0 [facility] pH Auto test strip (U)on pH (U) 5.5 [pH] 5.0-9.0 [facility] Operative Reporton Operative Report [id number]# 1.00TIFF Normal [facility] Screenson 04-29-2023 Screens [id number]# 1.00TIFF Normal [facility] Screens [id number]# 1.00TIFF Normal [facility] Ambulatory Visit Summaryon 0 04-28-2023 Ambulatory [...] urodynamics Where: [address], [place] [address] [phone] Medications What How Much When Instructions Unchanged [...] or d (more content not included)... Normal [facility] Patient Educationon 04-28- 24 Patient Education [...] including vitamins, herbs, eye drops, creams, and ewyi-nqg-mphlaez medicines. ? Whether you are or may [...] results be (more content not included)... Normal [facility] Urology Office/Clinic Noteon 04-28-2023 Urology Office/Clinic [...] prostate) P (more content not included)... Normal [facility] Comment on above: Result Comment: Elec tronically Signed By: Sara Bob MD\.br\Date and Time Signed: 04/28/23 11:12 EST\.br\Electronically Co-Signed By: Deborah Torres\.br\Date and Time Co-Signed: 04/28/23 10:44 EST Operative Reporton Operative Report [id number]# 1.00TIFF [facility] Consent for Procedure/Surger yon 03-18-2023 Consent for Procedure/Surgery [id number]#1 .00TIFF [facility] Screenson 02-03-2023 Screens [id number]#1 .00TIFF [facility] Screens [id number]#1 .00TIFF [facility] Ambulatory Visit Summaryon 1 04-05-2022 Ambulatory Visit Summary JOSEPH ESCALONA Nikita :1945 Visit Date:02/02/2023 Ambulatory Visit Instructions Your Diagnosis BPH with urinary obstruction Incomplete bladder emptying Screening PSA (prostate specific antigen) Asymptomatic microscopic hematuria Simple renal cyst Tests Performed Urnls Dip Stick Auto w/o Microscopy POC 98008 Your Care Team Attending Physician - BROOKS [...] Comments: sched cysto/TRUS Where: [address] [place] [address] [phone] Medications What How Much When Instructions Unchanged [...] Urnls Dip Stick Auto w/o Microscopy POC 99590 (02/02/2023) Bilirubin Urine Dipstick - Negative Blood Urine Dipstick - Trace-intact Glucose Urine Dipstick - 2+ 500 mg/dl Ketones Urine Dipstick - Negative Leukocytes Urine Dipstick - Negative Nitrite Urine Dipstick - Negative Protein Urine Dipstick - Negative Specific [place] Urine Dipstick - 1.025 Urine Appearance Urine [...] when yo (more content not included)... Normal [facility] Urology Office/Clinic Noteon 02-02-2023 Urology Office/Clinic [...] When Contact Information ANGELI GUY PA-C, URL [address] [place] [address] [phone] Additional Instructions: sched cysto/TRUS Patient Education Cystoscopy [...] mg oral (more content not included)... Normal [facility] Comment on above: Result Comment: Elec tronically Signed By: ANGELI GUY PA-C\.br\Date and Time Signed: 02/02/23 15:07 EST\.br\Electronically Co-Signed By: Deborah Torres\.br\Date and Time Co-Signed: 02/02/23 14:51 EST A1C HEMOGLOBINon 12-15-2022 HbA1c (Bld) [Mass fraction] 7.0 % [facility] Other Glucose - FINGER STICKon Glucose [Mass/Vol] 119 mg/dL [facility] Other HbA1c (Bld) [Mass fraction]o n 12-15-2022 A1C HEMOGLOBIN [facility] Other [place] 08-05-2022 Screens [id number] .00CD:127 Normal [facility] Patient Educationon 08-05-19 Patient Education Urology [...] Follow these instructions at home: ? Take nnre-ezf-hlacylb and prescription medicines only as told by [...] the medicine (more content not included)... Normal [facility] Urology Office/Clinic Noteon 08-04-2022 Urology Office/Clinic [...] E&M of Est. Patient Moderate 30-39 Min 78957 Measure Post Void residual urine and/or bladder capacity by US- non-imaging 16751 Urnls Dip Stick Auto w/o Microscopy POC 09871 2. Incomplete bladder emptying (R39.14: Feeling of incomplete bladder emptying) see #1. PVR: 05/21/20 - 98cc 02/25/21 - 156cc 02/25/22 - 250cc 08/04/22 - 143cc Ordered: E&M of Est. Patient Moderate 30-39 Min 44077 3. Prostatitis, chronic (N41.1: Chronic prostatitis) Hx of chronic prostatitis. Pt denies any infections since prior encounter, feels his infection frequency has lessened after TURP. Ordered: E&M of Est. Patient Moderate 30-39 Min 60791 4. Simple renal cyst (N28.1: Cyst of kidney, acquired) Found on [facility] done 01/2020, left 1.9cm. Follow PRN. Ordered: E&M of Est. Patient Moderate 30-39 Min 68572 5. Asymptomatic microscopic hematuria (R31.21: Asymptomatic microscopic hematuria) Chronic. UA today show trace intact only, no signs of infection. Ordered: E&M of Est. Patient Moderate 30-39 Min 53937 Follow-up With When Contact Information BROOKS ANTHONYANGELI, [...] 10:00:00) Ketones (more content not included)... Normal [facility] Comment on above: Result Comment: Elec [...] 3. Diabetes, managed by diabetes clinic at [facility], recent A1c 7.2 4. Obesity. Encouraged [...] point out cardiac cause. Jaleesa Conn MD, [facility] Surgical History Problems History of Appendectomy History [...] Recorded: 30Jun2022 11:20AM Heart Rate96, L Radial Rvucqjfz727, LUE, Sitting Ndozuwixq96, LUE, Sitting Height5 ft 6 in Ofircb863 lb BMI Ptsnwqyjud79.77 kg/m2 BSA Calculated2.01 Tobacco Useb) No PHQ-2 #1. Over the last 2 weeks have you felt down, depressed or hopeless? (If yes, answer PHQ-9 below)No PHQ-2 #2. Over the last 2 weeks have you felt little interest or pleasure (more content not included)... Normal [facility] Tobacco Screening.on 023 Adult depression screening assessment No [facility] [employer] DO Work Phone: Fall risk assessment a) No falls within the last year [facility] [employer] 250 DO Work Phone: Tobacco use status CP b) No M [facility] [employer] 250 DO Work Phone: A1C HEMOGLOBINon 06-15-2022 HbA1c (Bld) [Mass fraction] 7.1 % [facility] Other Glucose - FINGER STICKon Glucose [Mass/Vol] 133 mg/dL [facility] Other HbA1c (Bld) [Mass fraction]o n 06-15-2022 A1C HEMOGLOBIN [facility] Other LIPID PROFILEon 06-10-2022 CHOL-HDL RATIO NORM SEE BELOW Normal [facility] Comment on above: Result Comment: 3.3 - 4.4 LOW RISK 4.4 - 7.1 AVERAGE RISK 7.1 - 11.0 MODERATE RISK >11.0 HIGH RISK Performed By: #### C MP, LIPID #### [facility] [address] [address] [address] Kim Roper Cholesterol [Mass/Vol] 132 mg/dL Normal <=200 Th [facility] Comment on above: Performed By: #### C MP, LIPID #### [facility] [address] [address] [address] Kim Roper Cholesterol in HDL [Mass/Vol] 47 mg/dL Normal 40-60 [facility] Comment on above: Performed By: #### C MP, LIPID #### [facility] [address] [place] [address] Dr. Kim Roper Cholesterol in LDL [Mass/Vol] 63.2 mg/dL Normal [facility] Comment on above: Performed By: #### C MP, LIPID #### [facility] [address] [place] [address] Dr. Kim Roper Cholesterol.total/Celia sterol in HDL [Mass ratio] 2.8 {ratio} Normal [facility] Comment on above: Performed By: #### C MP, LIPID #### [facility] [address] [place] [address] Dr. Kim Roper HDL NORMAL > or = 60 mg/dl - LO W CARDIOVASCULAR RISK <40 mg/dl - HIGH CARDIOVASCULAR RISK Normal [facility] Comment on above: Performed By: #### C MP, LIPID #### [facility] [address] [place] [address] Dr. Kim Roper LDL CALC NORMAL SEE BELOW Normal [facility] Comment on above: Result Comment: <100 mg/dl OPTIMAL 100 - 129 mg/dl NEAR OR ABOVE OPTIMAL 130 - 159 mg/dl BORDERLINE HIGH 160 - 189 mg/dl HIGH >190 mg/dl VERY HIGH Performed By: #### C MP, LIPID #### [facility] [address] [place] [address] Dr. Kim Roper Triglyceride [Mass/Vol] 109 mg/dL Normal <=150 T [facility] Comment on above: Performed By: #### C MP, LIPID #### [facility] [address] [address] [address] Kim Roper VLDL CALC 21.8 mg/dL Normal [facility] Comment on above: Performed By: #### C MP, LIPID #### [facility] [address] [address] [address] Kim Roper MICROALB CREAT RATIO RANDOMo n 06-10-2022 mALB <1.3 Normal <=30.0 [facility] Comment on above: Performed By: #### M CRR #### [facility] [address] [address] [address] Kim Roper URINE CREAT 109.64 mg/dL Normal 20.00-300.0 0 [facility] Comment on above: Performed By: #### M CRR #### [facility] [address] [place] [address] Dr. Kim Roper PROF 14(COMP METB)on 023 Albumin [Mass/Vol] 3.7 g/dL Normal 3.4-5.0 [facility] Comment on above: Performed By: #### C MP, LIPID #### [facility] [address] [address] [address] Kim Roper Albumin/Globulin [Mass ratio] 1.0 {ratio} Normal [facility] Comment on above: Performed By: #### C MP, LIPID #### [facility] [address] [address] [address] Kim Roper ALP [Catalytic activity/Vol] 47 U/L Normal 46-116 [facility] Comment on above: Performed By: #### C MP, LIPID #### [facility] [address] [address] [address] Kim Roper ALT [Catalytic activity/Vol] 40 U/L Normal 16-63 [facility] Comment on above: Performed By: #### C MP, LIPID #### [facility] [address] [address] [address] Kim Roper Anion gap [Moles/Vol] 11.4 mmol/L Normal [facility] Comment on above: Performed By: #### C MP, LIPID #### [facility] [address] [address] [address] Kim Roper AST [Catalytic activity/Vol] 21 U/L Normal 15-37 [facility] Comment on above: Performed By: #### C MP, LIPID #### [facility] [address] [address] [address] Kim Roper Bilirubin [Mass/Vol] 0.5 mg/dL Normal 0.2-1.0 [facility] Comment on above: Performed By: #### C MP, LIPID #### [facility] [address] [address] [address] Kim Roper Calcium [Mass/Vol] 8.9 mg/dL Normal 8.5-10.1 [facility] Comment on above: Performed By: #### C MP, LIPID #### [facility] [address] [place] [address] Dr. Kim Roper Chloride [Moles/Vol] 105 mmol/L Normal 98-107 [facility] Comment on above: Performed By: #### C MP, LIPID #### [facility] [address] [address] [address] Kim Roper CO2 [Moles/Vol] 29.3 mmol/L Normal 21.0-32.0 [facility] Comment on above: Performed By: #### C MP, LIPID #### [facility] [address] [place] [address] Dr. Kim Roper Creatinine [Mass/Vol] 0.88 mg/dL Normal 0.70-1.30 [facility] Comment on above: Performed By: #### C MP, LIPID #### [facility] [address] [place] [address] Dr. Kim Roper EGFR-AF UGANDAN >60 Normal >=60 [facility] [facility] Comment on above: Performed By: #### C MP, LIPID #### [facility] [address] [address] [address] Kim Roper EGFR-NON AF UGANDAN >60 Normal >=60 [facility] Comment on above: Performed By: #### C MP, LIPID #### [facility] [address] [address] [address] Kim Roper Globulin (S) [Mass/Vol] 3.6 g/dL Normal [facility] Comment on above: Performed By: #### C MP, LIPID #### [facility] [address] [address] [address] Kim Roper Glucose [Mass/Vol] 160 mg/dL Critically high 74-106 [facility] Comment on above: Performed By: #### C MP, LIPID #### [facility] [address] [address] [address] Kim Roper Potassium [Moles/Vol] 4.7 mmol/L Normal 3.5-5.1 [facility] Comment on above: Performed By: #### C MP, LIPID #### [facility] [address] [address] [address] Kim Roper Protein [Mass/Vol] 7.3 g/dL Normal 6.4-8.2 [facility] Comment on above: Performed By: #### C MP, LIPID #### [facility] [address] [address] [address] Kim Roper Sodium [Moles/Vol] 141 mmol/L Normal 136-145 [facility] Comment on above: Performed By: #### C MP, LIPID #### [facility] [address] [address] [address] Kim Roper Urea nitrogen [Mass/Vol] 11.0 mg/dL Normal 7.0-18.0 [facility] Comment on above: Performed By: #### C MP, LIPID #### [facility] [address] [address] [address] Kim Roper Urea nitrogen/Creatinine [Mass ratio] 12.5 mg/mg Normal [facility] Comment on above: Performed By: #### C MP, LIPID #### [facility] [address] [place] [address] Dr. Kim Roper VITAMIN B12on 06-10-2022 Cobalamin (Vitamin B12) [Mass/Vol] 281.0 pg/mL Normal 193.0-986.0 [facility] Comment on above: Performed By: #### V ITB12 #### [facility] [address] [place], [place] [address] Dr. Kim Roper LIPID PROFILEon 06-20-2021 CHOL-HDL RATIO NORM SEE BELOW Normal [facility] Comment on above: Result Comment: 3.3 - 4.4 LOW RISK 4.4 - 7.1 AVERAGE RISK 7.1 - 11.0 MODERATE RISK >11.0 HIGH RISK Performed By: #### L IPID, CMP #### [facility] [address] [address] [address] Kim Roper Cholesterol [Mass/Vol] 114 mg/dL Normal <=200 [facility] Comment on above: Performed By: #### L IPID, CMP #### [facility] [address] [address] [address] Kim Roper Cholesterol in HDL [Mass/Vol] 42 mg/dL Normal 40-60 [facility] Comment on above: Performed By: #### L IPID, CMP #### [facility] [address] [address] [address] Kim Roper Cholesterol in LDL [Mass/Vol] 45.6 mg/dL Normal [facility] Comment on above: Performed By: #### L IPID, CMP #### [facility] [address] [id number] Kim Roper Cholesterol.total/Celia sterol in HDL [Mass ratio] 2.7 {ratio} Normal [facility] Comment on above: Performed By: #### L IPID, CMP #### [facility] [address] [address] [address] Kim Roper HDL NORMAL > or = 60 mg/dl - LO W CARDIOVASCULAR RISK <40 mg/dl - HIGH CARDIOVASCULAR RISK Normal [facility] Comment on above: Performed By: #### L IPID, CMP #### [facility] [address] [address] [address] Kim Roper LDL CALC NORMAL SEE BELOW Normal [facility] Comment on above: Result Comment: <100 mg/dl OPTIMAL 100 - 129 mg/dl NEAR OR ABOVE OPTIMAL 130 - 159 mg/dl BORDERLINE HIGH 160 - 189 mg/dl HIGH >190 mg/dl VERY HIGH Performed By: #### L IPID, CMP #### [facility] [address] [place] [address] Dr. Kim Roper Triglyceride [Mass/Vol] 132 mg/dL Normal <=150 [facility] Comment on above: Performed By: #### L IPID, CMP #### [facility] [address] [place] [address] Dr. Kim Roper VLDL CALC 26.4 mg/dL Normal [facility] Comment on above: Performed By: #### L IPID, CMP #### [facility] [address] [place] [address] Dr. Kim Roper MICROALB CREAT RATIO RANDOMo n 06-20-2021 mALB <1.3 Normal <=30.0 [facility] Comment on above: Performed By: #### M CRR #### [facility] [address] [place] [address] Dr. Kim Roper URINE CREAT 126.66 mg/dL Normal 20.00-300.0 0 [facility] Comment on above: Performed By: #### M CRR #### [facility] [address] [place] [address] Dr. Kim Roper PROF 14(COMP METB)on 022 Albumin [Mass/Vol] 3.9 g/dL Normal 3.4-5.0 [facility] Comment on above: Performed By: #### L IPID, CMP #### [facility] [address] [place] [address] Dr. Kim Roper Albumin/Globulin [Mass ratio] 1.2 {ratio} Normal [facility] Comment on above: Performed By: #### L IPID, CMP #### [facility] [address] [place] [address] Dr. Kim Roper ALP [Catalytic activity/Vol] 46 U/L Normal 46-116 [facility] Comment on above: Performed By: #### L IPID, CMP #### [facility] [address] [place] [address] Dr. Kmi Roper ALT [Catalytic activity/Vol] 32 U/L Normal 16-63 [facility] Comment on above: Performed By: #### L IPID, CMP #### [facility] [address] [place] [address] Dr. Kim Roper Anion gap [Moles/Vol] 10.9 mmol/L Normal [facility] Comment on above: Performed By: #### L IPID, CMP #### [facility] [address] [place] [address] Dr. Kim Roper AST [Catalytic activity/Vol] 17 U/L Normal 15-37 [facility] Comment on above: Performed By: #### L IPID, CMP #### [facility] [address] [place] [address] Dr. Kim Roper Bilirubin [Mass/Vol] 0.6 mg/dL Normal 0.2-1.3 [facility] Comment on above: Performed By: #### L IPID, CMP #### [facility] [address] [place] [address] Dr. Kim Roper Calcium [Mass/Vol] 8.7 mg/dL Normal 8.5-10.1 [facility] Comment on above: Performed By: #### L IPID, CMP #### [facility] [address] [place] [address] Dr. Kim Roper Chloride [Moles/Vol] 103 mmol/L Normal 98-107 [facility] Comment on above: Performed By: #### L IPID, CMP #### [facility] [address] [place] [address] Dr. Kim Roper CO2 [Moles/Vol] 30.4 mmol/L Critically high 22.0-30.0 [facility] Comment on above: Performed By: #### L IPID, CMP #### [facility] [address] [place] [address] Dr. Kim Roper Creatinine [Mass/Vol] 0.77 mg/dL Normal 0.66-1.25 [facility] Comment on above: Performed By: #### L IPID, CMP #### [facility] [address] [address] [address] Kim Roper EGFR-AF UGANDAN >60 Normal >=60 [facility] Comment on above: Performed By: #### L IPID, CMP #### [facility] [address] [address] [address] Kim Roper EGFR-NON AF UGANDAN >60 Normal >=60 [facility] Comment on above: Performed By: #### L IPID, CMP #### [facility] [address] [address] [address] Kmi Roper Globulin (S) [Mass/Vol] 3.3 g/dL Normal [facility] Comment on above: Performed By: #### L IPID, CMP #### [facility] [address] [place] [address] Dr. Kim Roper Glucose [Mass/Vol] 88 mg/dL Normal 74-106 [facility] Comment on above: Performed By: #### L IPID, CMP #### [facility] [address] [place] [address] Dr. Kim Roper Potassium [Moles/Vol] 4.3 mmol/L Normal 3.4-5.0 [facility] Comment on above: Performed By: #### L IPID, CMP #### [facility] [address] [place] [address] Dr. Kim Roper Protein [Mass/Vol] 7.2 g/dL Normal 6.1-8.2 [facility] Comment on above: Performed By: #### L IPID, CMP #### [facility] [address] [place] [address] Dr. Kim Roper Sodium [Moles/Vol] 140 mmol/L Normal 137-145 [facility] Comment on above: Performed By: #### L IPID, CMP #### [facility] [address] [place] [address] Dr. Kim Roper Urea nitrogen [Mass/Vol] 15.0 mg/dL Normal 7.0-18.0 [facility] Comment on above: Performed By: #### L IPID, CMP #### [facility] [address] [address] [address] Kim Roper Urea nitrogen/Creatinine [Mass ratio] 19.5 mg/mg Normal [facility] Comment on above: Performed By: #### L IPID, CMP #### [facility] [address] [address] [address] Kim Roper VITAMIN B12on 06-20-2021 Cobalamin (Vitamin B12) [Mass/Vol] 430.0 pg/mL Normal 239.0-931.0 [facility] Comment on above: Performed By: #### V ITB12 #### [facility] [address] [address] [address] Kim Roper Tobacco Screening.on 021 Fall risk assessment a) No falls within the last year [facility] [employer] DO Work Phone: Tobacco use status [facility] b) No M [facility] DO Work Phone: GLUCOSE, FINGERSTICK-IN OFFI CEon 03-20-2020 Glucose [Mass/Vol] 155 mg/dL High 80-116 [facility] Comment on above: Performed By: #### Everett KILGORE I #### [facility] [address] [place] [address], BASIC METABOLIC PANELon 03-01 Anion gap [Moles/Vol] 14 mmol/L High 5-13 [facility] Comment on above: Performed By: #### DESI DALE #### [facility] [address] [place] [address], Calcium [Mass/Vol] 8.3 mg/dL Low 8.4-10.4 [facility] Comment on above: Performed By: #### DESI DALE #### [facility] [address] [place] [address], Chloride [Moles/Vol] 101 mmol/L Normal 97-111 [facility] Comment on above: Performed By: #### DESI DALE #### [facility] [address] [place] [address], CO2 [Moles/Vol] 24 mmol/L Normal 21-30 [facility] Comment on above: Performed By: #### DESI DALE #### [facility] [address] [place] [address], Creatinine [Mass/Vol] 0.73 mg/dL Low 0.80-1.30 [facility] Comment on above: Performed By: #### Dinesh THAPA CH8 #### [facility] [address] [place] [address], GFR/1.73 sq M.predicted MDRD (S/P/Bld) [Vol rate/Area] 91 mL/min/1.73sqm Normal >=60 [facility] Comment on above: Performed By: #### Dinesh THAPA CH8 #### [facility] [address] [place] [address], Glucose [Mass/Vol] 221 mg/dL High 80-116 [facility] Comment on above: Performed By: #### Dinesh THAPA CH8 #### [facility] [address] [place] [address], Potassium [Moles/Vol] 4.0 mmol/L Normal 3.3-5.3 [facility] Comment on above: Performed By: #### DESI DALE #### [facility] [address] [place] [address], Sodium [Moles/Vol] 135 mmol/L Normal 135-148 [facility] Comment on above: Performed By: #### DESI DALE #### [facility] [address] [place] [address], Urea nitrogen [Mass/Vol] 8 mg/dL Normal 8-22 [facility] Comment on above: Performed By: #### DESI DALE #### [facility] [address] [place] [address], CBC WITH DIFFERENTIALon 03-01 Basophils (Bld) [#/Vol] 0.07 10*3/uL Normal 0.00-0.20 [facility] Comment on above: Performed By: #### T ROP I #### [facility] [address] [place], [place], Basophils/100 WBC (Bld) 0.7 % Normal <=1.9 [facility] Comment on above: Performed By: #### T ROP I #### [facility] [address] [place], [place], Eosinophils (Bld) [#/Vol] 0.02 10*3/uL Normal 0.00-0.70 [facility] Comment on above: Performed By: #### T ROP I #### [facility] [address] [place], [place], Eosinophils/100 WBC (Bld) 0.2 % Normal 0.1-4.0 [facility] Comment on above: Performed By: #### T ROP I #### [facility] [address] [place], [place], Erythrocyte distribution width (RBC) [Ratio] 14.9 % High 11.5-14.5 [facility] Comment on above: Performed By: #### T ROP I #### [facility] [address] [place], [place], Hematocrit (Bld) [Volume fraction] 41.2 % Normal 41.0-53.0 [facility] Comment on above: Performed By: #### T ROP I #### [facility] [address] [place], [place], Hemoglobin (Bld) [Mass/Vol] 14.0 g/dL Normal 13.9-16.3 [facility] Comment on above: Performed By: #### T ROP I #### [facility] [address] [place], [place], Lymphocytes (Bld) [#/Vol] 0.59 10*3/uL Low 1.00-4.80 [facility] Comment on above: Performed By: #### T ROP I #### [facility] [address] [place], [place], Lymphocytes/100 WBC (Bld) 6.1 % Low 24.0-44.0 [facility] Comment on above: Performed By: #### T ROP I #### [facility] [address] [place] [address], MCH (RBC) [Entitic mass] 29.5 pg Normal 26.0-34.0 [facility] Comment on above: Performed By: #### T ROP I #### [facility] [address] [place] [address], MCHC (RBC) [Mass/Vol] 34.1 g/dL Normal 32.0-35.9 [facility] Comment on above: Performed By: #### T ROP I #### [facility] [address] [place] [address], MCV (RBC) [Entitic vol] 87 fL Normal 80-100 [facility] Comment on above: Performed By: #### T ROP I #### [facility] [address] [place] [address], Monocytes (Bld) [#/Vol] 0.61 10*3/uL Normal 0.20-1.00 [facility] Comment on above: Performed By: #### T ROP I #### [facility] [address] [place] [address], Monocytes (Bld) [#/Vol] 18 10*3/uL Normal <=20 [facility] Comment on above: Performed By: #### T ROP I #### [facility] [address] [place] [address], Monocytes/100 WBC (Bld) 6.3 % Normal 2.0-11.0 [facility] Comment on above: Performed By: #### T ROP I #### [facility] [address] [place] [address], Neutrophils (Bld) [#/Vol] 8.39 10*3/uL High 1.50-8.00 [facility] Comment on above: Performed By: #### T ROP I #### [facility] [address] [place] [address], Neutrophils/100 WBC (Bld) 86.7 % High 31.0-76.0 [facility] Comment on above: Performed By: #### T ROP I #### [facility] [address] [place], [place], Nucleated RBC (Bld) [#/Vol] 0.0 10*3/uL Normal [facility] Comment on above: Performed By: #### T ROP I #### [facility] [address] [place], [place], Nucleated RBC (Bld) [#/Vol] 0.00 10*3/uL Normal [facility] Comment on above: Performed By: #### T ROP I #### [facility] [address] [place], [place], Platelet mean volume (Bld) [Entitic vol] 6.4 fL Low 7.5-11.2 [facility] Comment on above: Performed By: #### T ROP I #### [facility] [address] [place], [place], Platelets (Bld) [#/Vol] 221 10*3/uL Normal 150-400 [facility] Comment on above: Performed By: #### T ROP I #### [facility] [address] [place], [place], RBC (Bld) [#/Vol] 4.76 10*6/uL Normal 4.50-5.90 [facility] Comment on above: Performed By: #### T ROP I #### [facility] [address] [place], [place], WBC (Bld) [#/Vol] 9.7 10*3/uL Normal 4.5-11.5 [facility] Comment on above: Performed By: #### T ROP I #### [facility] [address] [place], [place], CT HEAD W/O CONTRASTon 03-19 CT [...] ALANIS, CH8 #### [facility] [address] [place], [place], HIV1 HIV2 AGAB SCRNon 2020 HIV AG-AB SCREEN Non-Reactive Normal Non-Reactiv e [facility] [employer] [facility] Comment on above: Order Comment: HIV Information: ???[place] Rev. code 3701.243(E): This information has been [...] agab scrn #### [facility] [address] [place], [place], LACTIC ACIDon 03-19-2020 Lactate [Moles/Vol] 1.5 mmol/L Normal 0.5-2.0 [facility] Comment on above: Performed By: #### L ACT #### [facility] [address] [place], [place], PARTIAL THROMBOPLASTIN TIMEo n 03-19-2020 aPTT Coag (Bld) [Time] 29 s Normal 25-37 [facility] Comment on above: Performed By: #### P T, APTT #### [facility] [address] [place], [place], PROTHROMBIN TIME AND INRon 0 03-19-2020 INR Coag (PPP) [Relative time] 0.96 {INR} Normal 0.90-1.10 [facility] Comment on above: Performed By: #### P T, APTT #### [facility] [address] [place], [place], PT Coag (PPP) [Time] 10.9 s Normal 9.7-12.9 [facility] Comment on above: Performed By: #### P T, APTT #### [facility] [address] [place] [address], TROPONIN Ion 03-19-2020 Troponin I.cardiac [Mass/Vol] ng/mL Normal <0.120 [facility] Comment on above: Result Comment: Rang [...] Performed By: #### T ROP I #### [facility] [address] [place], [place], Troponin I.cardiac [Mass/Vol] ng/mL Normal <0.120 [facility] Comment on above: Result Comment: Rang [...] T ROP I #### [facility] [address] [place] [address], Troponin I.cardiac [Mass/Vol] ng/mL Normal <0.120 The [...] T ROP I #### [facility] [address] [place] [address], TYPE AND SCREENon 03-19-2020 ABO and Rh group Nom (Bld) No Previous Results Normal [facility] Comment on above: Performed By: #### T S #### [facility] [address] [place] [address], ABO and Rh group Nom (Bld) A Positive Normal [facility] Comment on above: Performed By: #### T S #### [facility] [address] [place] [address], ABSC INT Negative Normal [facility] Comment on above: Performed By: #### T S #### [facility] [address] [place] [address], [facility] CARDIAC STRESS/REST INJE CTIONon 08-15-2019 [facility] CARDIAC STRESS/REST INJECTION Patient Name: JOSEPH ESCALONA STUDY: MYOCARDIAL PERFUSION STRESS TEST WITH LEXISCAN Performing facility: [facility], [address] [place] [address], [address], [place] [address] [facility] Provider: Jaleesa Conn MD, FACC PCP: Dr. Zia GRIGGS Supervising provider: Chinedu Mcgarry MD, FACC INDICATION: ASCVD DM Hyperlipidemia HISTORY: Gender: M; Age: 74 y/o ; Height: 167.64 cm; Weight: 92.2052785 kg. CAD; Diabetes; HTN; Abnormal EKG; High Cholesterol; Quit smoking years ago. Cardiac catheterization 2009. COMPARISON: Previous nuclear testing completed 2009 at [facility]. ACCESSION NUMBER(S): [id number]; [id number]; [id number] ORDERING CLINICIAN: JALEESA CONN TECHNIQUE: ONE DAY [...] Electronically signed by: CLARE FONSECA MD Normal [facility] Vital Signs Date Time Vital Sign Value Performing Clinician Facility 09-06-2023 10: Body height 167.64 cm [facility] 09-06-2023 10: Body mass index (BMI) [Ratio] 32 kg/m2 [facility] 09-06-2023 10:04-0400 Body weight 89.98 kg [facility] 09-06-2023 10:04-0400 Diastolic blood pressure 76 mm[Hg] [facility] 09-06-2023 10:04-0400 Heart rate 86 /min [facility] 09-06-2023 10:04-0400 Respiratory rate 12 /min [facility] 09-06-2023 10:04-0400 Systolic blood pressure 138 mm[Hg] [facility] 06-30-2023 11:18-0400 Diastolic blood pressure 80 mm[Hg] Jaleesa Conn MD Work Phone: [facility] 06-30-2023 11:18-0400 Systolic blood pressure 136 mm[Hg] Jaleesa Conn MD Work Phone: [facility] 06-30-2023 11:00-0400 Body height 167.6 cm Jaleesa Conn MD Work Phone: [facility] 06-30-2023 11:00-0400 Body mass index (BMI) [Ratio] 32.28 kg/m2 Jaleesa Conn MD Work Phone: [facility] 06-30-2023 11:00-0400 Body weight 90.72 kg Jaleesa Conn MD Work Phone: [facility] 06-30-2023 11:00-0400 Heart rate 76 /min Jaleesa Conn MD Work Phone: [facility] 06-24-2023 13:33-0400 Body height 167.64 cm [facility] 06-24-2023 13:33-0400 Body mass index (BMI) [Ratio] 32.3 kg/m2 [facility] 06-24-2023 13:33-0400 Body weight 90.71 kg [facility] 06-24-2023 13:33-0400 Diastolic blood pressure 71 mm[Hg] [facility] 06-24-2023 13:33-0400 Heart rate 78 /min [facility] 06-24-2023 13:33-0400 Respiratory rate 18 /min [facility] 06-24-2023 13:33-0400 SaO2% (BldA) [Mass fraction] 97 % [facility] 06-24-2023 13:33-0400 Systolic blood pressure 142 mm[Hg] [facility] 05-24-2023 11:56-0400 Body height 167.64 cm [facility] 05-24-2023 11:56-0400 Body mass index (BMI) [Ratio] 32.3 kg/m2 [facility] 05-24-2023 11:56-0400 Body weight 90.71 kg [facility] 05-24-2023 11:56-0400 Diastolic blood pressure 83 mm[Hg] [facility] 05-24-2023 11:56-0400 Heart rate 90 /min [facility] 05-24-2023 11:56-0400 Respiratory rate 16 /min [facility] 05-24-2023 11:56-0400 Systolic blood pressure 172 mm[Hg] [facility] 04-28-2023 10:03-0500 Blood Pressure Location Sara Lue [facility] 04-28-2023 10:03-0500 Diastolic blood pressure 82 mm[Hg] Sara Lue [facility] 04-28-2023 10:03-0500 Systolic blood pressure 142 mm[Hg] Sara Lue [facility] 03-17-2023 09:00-0500 Body height 167.64 cm Dion Ball Other [facility] 03-17-2023 09:00-0500 Body mass index (BMI) [Ratio] 33.41 kg/m2 Dion Ball Other [employer] Other 03-17-2023 09:00-0500 Body weight 93.9 kg Dion Ball Other [facility] [employer] Other 03-17-2023 09:00-0500 Body weight 93.89 kg [facility] 03-17-2023 09:00-0500 Diastolic blood pressure 80 mm[Hg] Dion Ball Other [facility] 03-17-2023 09:00-0500 Respiratory rate 12 /min Dion Ball Other [facility] [employer] Other 03-17-2023 09:00-0500 Systolic blood pressure 132 mm[Hg] Dion Ball Other [facility] 02-02-2023 14:05-0500 Blood Pressure Location ANGELI BROOKS [facility] 02-02-2023 14:05-0500 Diastolic blood pressure 74 mm[Hg] ANGELI BROOKS [facility] 02-02-2023 14:05-0500 Heart rate 82 /min ANGELI BROOKS [facility] 02-02-2023 14:05-0500 Respiratory rate 16 /min ANGELI BROOKS [facility] 02-02-2023 14:05-0500 Systolic blood pressure 132 mm[Hg] ANGELI BROOKS [facility] 12-15-2022 13:00-0400 Body height 167.64 cm [employer] Other [facility] [employer] Other 12-15-2022 13:00-0400 Body mass index (BMI) [Ratio] 33.23 kg/m2 [employer] Other [facility] [employer] Other 12-15-2022 13:00-0400 Body weight 93.4 kg Tondra Mapus Other [employer] Other 12-15-2022 13:00-0400 Diastolic blood pressure 87 mm[Hg] Tondra Mapus Other [employer] Other 12-15-2022 13:00-0400 Respiratory rate 18 /min Tondra Mapus Other [employer] Other 12-15-2022 13:00-0400 SaO2% (BldA) [Mass fraction] 97 % Tondra Mapus Other [employer] Other 12-15-2022 13:00-0400 Systolic blood pressure 154 mm[Hg] Tondra Mapus Other [employer] Other 09-02-2022 10:30-0400 Body height 167.64 cm Dion Ball Other [employer] Other 09-02-2022 10:30-0400 Body mass index (BMI) [Ratio] 32.89 kg/m2 Dion Ball Other [employer] Other 09-02-2022 10:30-0400 Body weight 92.44 kg Dion Ball Other [employer] Other 09-02-2022 10:30-0400 Diastolic blood pressure 80 mm[Hg] Dion Ball Other [employer] Other 09-02-2022 10:30-0400 Respiratory rate 12 /min Dion Ball Other [employer] Other 09-02-2022 10:30-0400 Systolic blood pressure 130 mm[Hg] Dion Ball Other [employer] Other 08-20-2022 10:45-0400 Body height 167.64 cm Dion Ball Other [employer] Other 08-20-2022 10:45-0400 Body mass index (BMI) [Ratio] 32.47 kg/m2 Dion Ball Other [employer] Other 08-20-2022 10:45-0400 Body weight 91.26 kg Dion Ball Other [employer] Other 08-20-2022 10:45-0400 Diastolic blood pressure 77 mm[Hg] Dion Ball Other [employer] Other 08-20-2022 10:45-0400 Respiratory rate 12 /min Dion Ball Other [employer] Other 08-20-2022 10:45-0400 Systolic blood pressure 150 mm[Hg] Dion Ball Other [employer] Other 08-04-2022 10:02-0400 Blood Pressure Location ANGELI BROOKS [facility] 08-04-2022 10:02-0400 Diastolic blood pressure 78 mm[Hg] ANGELI BROOKS [facility] 08-04-2022 10:02-0400 Heart rate 68 /min ANGELI BROOKS [facility] 08-04-2022 10:02-0400 Respiratory rate 16 /min ANGELI BROOKS [facility] 08-04-2022 10:02-0400 Systolic blood pressure 130 mm[Hg] ANGELI GUY [facility] 07-23-2022 11:09-0400 Diastolic blood pressure 78 mm[Hg] Dion E Ball Work Phone: [facility] DO Work Phone: 07-23-2022 11:09-0400 Systolic blood pressure 138 mm[Hg] Dion E Ball Work Phone: [facility] DO Work Phone: 07-23-2022 11:06-0400 Body height 167.64 cm Dion E Ball Work Phone: [facility] DO Work Phone: 07-23-2022 11:06-0400 Body mass index (BMI) [Ratio] 32.77 kg/m2 Dion E Ball Work Phone: [facility] DO Work Phone: 07-23-2022 11:06-0400 Body surface area Derived from formula 2.01 m2 Dion E Ball Work Phone: [facility] DO Work Phone: 07-23-2022 11:06-0400 Body weight 92.08 kg Dion E Ball Work Phone: [facility] DO Work Phone: 07-23-2022 11:06-0400 Diastolic blood pressure 80 mm[Hg] Dion E Ball Work Phone: [facility] DO Work Phone: 07-23-2022 11:06-0400 Heart rate 90 /min Dion E Ball Work Phone: [facility] DO Work Phone: 07-23-2022 11:06-0400 Systolic blood pressure 140 mm[Hg] Dion Montiel Ball Work Phone: [facility] DO Work Phone: 06-30-2022 11:20-0400 Body height 167.64 cm Dion Montiel Ball Work Phone: [facility] DO Work Phone: 06-30-2022 11:20-0400 Body mass index (BMI) [Ratio] 32.77 kg/m2 Dion Montiel Ball Work Phone: [facility] 250 DO Work Phone: 06-30-2022 11:20-0400 Body surface area Derived from formula 2.01 m2 Dion Montiel Ball Work Phone: [facility] DO Work Phone: 06-30-2022 11:20-0400 Body weight 92.08 kg Doin Montiel Ball Work Phone: [facility] DO Work Phone: 06-30-2022 11:20-0400 Diastolic blood pressure 88 mm[Hg] Dion Montiel Ball Work Phone: [facility] DO Work Phone: 06-30-2022 11:20-0400 Heart rate 96 /min Dion Montiel Ball Work Phone: [facility] DO Work Phone: 06-30-2022 11:20-0400 Systolic blood pressure 158 mm[Hg] Dion Montiel Ball Work Phone: [facility] DO Work Phone: 06-15-2022 14:30-0400 Body height 167.64 cm Ynes Jain Other [employer] Other 06-15-2022 14:30-0400 Body mass index (BMI) [Ratio] 33.18 kg/m2 Tondra Mapus Other [employer] Other 06-15-2022 14:30-0400 Body weight 93.26 kg Tondra Mapus Other [employer] Other 06-15-2022 14:30-0400 Diastolic blood pressure 85 mm[Hg] Tondra Mapus Other [employer] Other 06-15-2022 14:30-0400 Respiratory rate 18 /min Tondra Mapus Other [employer] Other 06-15-2022 14:30-0400 SaO2% (BldA) [Mass fraction] 95 % Tondra Mapus Other [employer] Other 06-15-2022 14:30-0400 Systolic blood pressure 151 mm[Hg] Tondra Mapus Other [employer] Other 02-25-2022 09:34-0500 Blood Pressure Location ANGELITHERESA GUY [facility] 02-25-2022 09:34-0500 Diastolic blood pressure 82 mm[Hg] ANGELI BROOKS [facility] 02-25-2022 09:34-0500 Heart rate 68 /min ANGELI BROOKS [facility] 02-25-2022 09:34-0500 Respiratory rate 16 /min ANGELI BROOKS [facility] 02-25-2022 09:34-0500 Systolic blood pressure 138 mm[Hg] ANGELI GUY [facility] 08-26-2021 10:43-0400 Blood Pressure Location Kailee Mckinney Jr. [facility] 08-26-2021 10:43-0400 Diastolic blood pressure 76 mm[Hg] Kailee Mckinney Jr. [facility] 08-26-2021 10:43-0400 Heart rate 85 /min Kailee Mckinney Jr. [facility] 08-26-2021 10:43-0400 Respiratory rate 16 /min Kailee Mckinney Jr. [facility] 08-26-2021 10:43-0400 Systolic blood pressure 138 mm[Hg] Kailee Mckinney Jr. [facility] 01-06-2021 14:59-0500 Body height 167.64 cm Dion Griggs Work Phone: [facility] DO Work Phone: 01-06-2021 14:59-0500 Body mass index (BMI) [Ratio] 32.6 kg/m2 Dion Griggs Work Phone: [facility] DO Work Phone: 01-06-2021 14:59-0500 Body surface area Derived from formula 2.01 m2 Dion Griggs Work Phone: [facility] DO Work Phone: 01-06-2021 14:59-0500 Body weight 91.63 kg Dion Griggs Work Phone: [facility] DO Work Phone: 01-06-2021 14:59-0500 Diastolic blood pressure 76 mm[Hg] Dion Griggs Work Phone: [facility] DO Work Phone: 01-06-2021 14:59-0500 Heart rate 86 /min Dion Griggs Work Phone: [facility] DO Work Phone: 01-06-2021 14:59-0500 Systolic blood pressure 128 mm[Hg] Dion Griggs Work Phone: [facility] DO Work Phone: Encounters Encounter Date Encounter Type Care Provider Facility Start: 09-06-2023 End: 09-06-2023 ambulatory [facility] Work Phone: Start: 09-06-2023 End: 09-06-2023 Patient encounter procedure [facility] Work Phone: Start: 07-13-2023 End: 07-13-2023 Patient encounter procedure [facility] Work Phone: Start: 06-30-2023 End: 06-30-2023 Office outpatient visit 25 minutes Jaleesa Conn MD Work Phone: [facility] Comment on above: Essential hypertensi on, benign (Primary Dx); ASCVD (arteriosclerotic cardiovascular disease); Mixed hyperlipidemia; Type 2 diabetes mellitus without complication, with long-term current use of insulin (Multi); Former smoker; BMI 32.0-32.9,adult; Obstructive sleep apnea syndrome; Urinary retention Start: 06-30-2023 End: 06-30-2023 ambulatory JALEESA CONN [facility] Start: 06-29-2023 Non-patient / Non-visit [facility] Work Phone: Start: 06-24-2023 End: 06-24-2023 ambulatory [facility] Work Phone: Start: 06-24-2023 End: 06-24-2023 Patient encounter procedure [facility] Work Phone: Start: 06-22-2023 Non-patient / Non-visit [facility] Work Phone: Start: 06-15-2023 End: 06-15-2023 ambulatory Ton Rhodes Facility:[facility] Start: 06-08-2023 ambulatory ANGELI GUY Facili ty:[facility] Start: 05-24-2023 End: 05-24-2023 ambulatory [facility] Work Phone: Start: 05-24-2023 End: 05-24-2023 Patient encounter procedure [facility] Work Phone: Start: 05-20-2023 Non-patient / Non-visit [facility] Work Phone: Start: 05-10-2023 End: 06-22-2023 Pre-admission assessment Renato MCCABE [facility] Start: 05-05-2023 ambulatory ANGELI GUY Facili ty:[facility] Start: 05-04-2023 Non-patient / Non-visit [facility] Work Phone: Start: 04-28-2023 End: 04-29-2023 ambulatory Sara Bob Facility:[facility] Start: 04-28-2023 End: 04-28-2023 Patient encounter procedure Sara Bob [facility] Start: 03-26-2023 End: 03-27-2023 ambulatory Sara Bob Facility:[facility] Start: 03-26-2023 End: 03-26-2023 Patient encounter procedure Sara Bob [facility] Start: 03-25-2023 End: 03-26-2023 ambulatory Sara Bob Facility:[id number] Start: 03-17-2023 End: 03-17-2023 ambulatory Dion Griggs Other [employer] Other Start: 03-17-2023 Office outpatient vi sit 25 minutes Dion Griggs [facility] Start: 03-17-2023 End: 03-17-2023 Patient encounter procedure [facility] Start: 03-16-2023 End: 03-16-2023 ambulatory Tondra Mapus Other [employer] Other Start: 03-16-2023 Telephone encounter Tondra Danikaus [facility] Start: 02-02-2023 End: 02-03-2023 ambulatory ANGELI GUY Facility:[facility] Start: 02-02-2023 End: 02-02-2023 Patient encounter procedure ANGELI GUY [facility] Start: 12-15-2022 (DM) Diabetes Tondra Mapus [facility] Start: 12-15-2022 End: 12-16-2022 ambulatory Tondra K Mapus [employer] Other Start: 12-02-2022 End: 12-02-2022 ambulatory Dion Griggs Other [employer] Other Start: 12-02-2022 Nursing evaluation o f patient and report Dion Griggs [facility] Start: 09-02-2022 End: 09-02-2022 ambulatory Dion Griggs Other [employer] Other Start: 09-02-2022 Patient encounter procedure Dion Griggs [facility] Start: 08-20-2022 End: 08-20-2022 ambulatory Dion Griggs Other [employer] Other Start: 08-20-2022 Office outpatient vi sit 15 minutes Dion Griggs [facility] Start: 08-04-2022 End: 08-05-2022 ambulatory ANGELI BECKWITHRY Facility:[facility] Start: 08-04-2022 End: 08-04-2022 Patient encounter procedure ANGELI GUY [facility] Start: 07-23-2022 Office outpatient vi sit 10 minutes Dion Montiel Gabriel Work Phone: [facility] [employer] 250 DO Work Phone: Start: 06-30-2022 Telephone encounter Dion Griggs [facility] Start: 06-30-2022 Office outpatient vi sit 25 minutes Dion Griggs Work Phone: [facility] [employer] 250 DO Work Phone: Start: 06-30-2022 End: 06-30-[address] [facility] [employer] Other Start: 06-15-2022 (DM) Diabetes Tondra Mapus [facility] Start: 06-15-2022 End: 06-15-2022 ambulatory Tondra Mapus Other [employer] Other Start: 06-10-2022 End: 06-11-2022 ambulatory TONDRA MAPUS Facility: Start: 05-04-2022 Rx Renewal Dion szymanski Work Phone: [facility] [employer] 250 DO Work Phone: Start: 04-27-2022 End: 04-27-2022 ambulatory Tondra Mapus Other [employer] Other Start: 04-27-2022 Telephone encounter Tondra Mapus [facility] Start: 02-25-2022 End: 02-25-2022 Patient encounter procedure ANGELITHERESA GUY [facility] Start: 02-06-2022 End: 02-07-[address] KAILEE Valente Facility:[facility] Start: 09-03-2021 Adult health examination Noam radha Griggs Other [employer] Other Start: 09-01-2021 Pre-procedure evalua tion check Dion Griggs Other [employer] Other Start: 08-26-2021 End: 08-26-2021 Patient encounter procedure Kailee Mckinney Jr. [facility] Start: 06-23-2021 End: 06-23-2021 ambulatory Tondra Mapus Other [employer] Other Start: 06-23-2021 Telephone encounter Tondra Mapus [facility] Start: 06-20-2021 End: 06-21-2021 ambulatory TONDRA MAPUS Facility:[facility] Start: 03-24-2021 Rx Renewal Dion szymanski Work Phone: [facility] 250 DO Work Phone: Start: 03-18-2021 End: 03-18-2021 ambulatory Tondra Mapus Other [employer] Other Start: 03-18-2021 Telephone encounter Tondra Mapus [facility] Start: 01-06-2021 Office outpatient vi sit 25 minutes Dion Griggs Work Phone: [facility] Work Phone: Start: 03-19-2020 End: 03-20-2020 Evaluation and management of inpatient CACHORRO ROBLERO Facility:[facility] Start: 03-19-2020 Patient encounter procedure UNKNOWN PROVIDER Facility:[facility] Procedures Date Procedure Procedure Detail Performing Clinician Start: 06-29-2023 Bacteria identified in Urine by Culture Start: 05-24-2023 Blood Culture 1 Start: 05-24-2023 Blood Culture 2 Start: 05-20-2023 Bacteria identified in Urine by Culture Start: 05-20-2023 Blood Culture 1 Start: 05-20-2023 Blood Culture 2 Start: 02-06-2022 PSA screening YNES BRAN Comment on above: Performed By: #### P SAD #### [facility] [address] [place] [address] Dr. Kim Roper Start: 05-01-2020 Transurethral prostatectomy [...] DTaP/Tdap/Td Vaccines (3 - Td or Tdap) [facility] Start: 04-12-2024 End: 04-12-2024 Patient encounter procedure 04/12/2024 11:20 AM EST Office Visit [facility] [address] [place] [address] Jaleesa Conn MD [address] [place] [address] [facility] Start: 10-31-2023 Influenza vaccination Influenz a Vaccine (Season Ended) [facility] Start: 06-30-2023 FUV, Provider: Jaleesa Conn, Status: Pen, Time: 11:00 AM FUV, Provider: Jaleesa Conn, Status: Pen, Time: 11:00 AM [facility] 250 DO Work Phone: Start: 05-20-2023 Blood Culture 1 Blood Culture 1 [facility] Start: 05-20-2023 Blood Culture 2 Blood Culture 2 [facility] Start: 10-30-2022 COVID-19 Vaccine ( season) COVID-19 Vaccine ( season) [facility] Start: 08-15-2022 Glaucoma screening Diabetes: R etinopathy Screening [facility] Start: 07-23-2022 NURSEVST, Provider: EMILY BERGMAN INFORMATION SUPPORT PROJECT MANAGER 1,[id number], Status: Pen, Time: 11:00 AM NURSEVST, Provider: EMILY BERGMAN INFORMATION SUPPORT PROJECT MANAGER 1,[id number], Status: Pen, Time: 11:00 AM [facility] 250 DO Work Phone: Start: 06-30-2022 FUV, Provider: Jaleesa Conn, Status: Pen, Time: 11:20 AM FUV, Provider: Jaleesa Conn, Status: Pen, Time: 11:20 AM [facility] Work Phone: Start: 07-01-2021 FUV, Provider: Jaleesa Conn, Status: Pen, Time: 1:00 PM FUV, Provider: Jaleesa Conn, Status: Pen, Time: 1:00 PM [facility] Work Phone: Start: 2004 RSV patient s and/or patients aged 60+ years (1 - 1-dose 60+ series) RSV patients and/or patients aged 60+ years (1 - 1-dose 60+ series) [facility] Start: 1994 Zoster Vaccines (1 o f 2) Zoster Vaccines (1 of 2) [facility] Start: 07-15-1963 Urine screening for protein Diabetes: Urine Protein Screening [facility] Start: 1962 Hepatitis C screening Hepatitis C Sc reening [facility] Start: 1954 Diabetic foot examination Diabetes: Foot Exam [facility] Start: 1944 Hemoglobin A1c measurement Diabetes: Hemoglobin A1C [facility] Start: 1944 Lipid panel Lipid Panel [facility] Start: 1944 Medicare Annual Wellness Visit Medicare Annual Wellness Visit (AWV) [facility] Patient Education Diabetes in Ol aroldo Adults [facility] Work Phone: [facility] Immunizations Immunization Date Immunization Notes Care Provider Mark manzanares 12-02-2022 influenza, high dose seasonal, preservative-free Dion Griggs Other [place] [employer] Document Preparation [facility] [employer] Other 12-02-2022 influenza virus vaccine, unspecified formulation [facility] 12-10-2021 Fluad Quadrivalent 0 .5 ML Intramuscular Prefilled Syringe Dion Griggs Work Phone: [facility] [employer] 250 DO Work Phone: 12-10-2021 influenza virus vaccine, split virus (incl. purified surface antigen) Dion Griggs Other [employer] Other 12-10-2021 influenza virus vaccine, unspecified formulation ANGELI GUY [facility] 12-10-2021 influenza, high dose seasonal, preservative-free Dion Griggs Other [facility] [employer] Other 12-06-2020 influenza virus vaccine, unspecified formulation ANGELI GUY [facility] 12-06-2020 influenza, high dose seasonal, preservative-free Dion Griggs Work Phone: [facility] Comment on above: Series: 12-05-2020 influenza virus vaccine, split virus (incl. purified surface antigen) Dion Griggs Other [facility] [employer] Other 12-05-2020 influenza virus vaccine, unspecified formulation [facility] 05-06-2020 Josephine COVID-19 Vaccine 0.5 ML Intramuscular Suspension Dion Griggs Work Phone: [facility] Comment on above: Series: 03-19-2020 diphtheria, tetanus toxoids and pertussis vaccine Dion Griggs Work Phone: [facility] 03-19-2020 tetanus toxoid, redu noman diphtheria toxoid, and acellular pertussis vaccine, adsorbed Jaleesa Conn MD Work Phone: [facility] Work Phone: 12-05-2019 influenza virus vaccine, split virus (incl. purified surface antigen) Dion Griggs Other [facility] [employer] Other 12-05-2019 influenza virus vaccine, unspecified formulation [facility] 11-30-2019 influenza virus vaccine, unspecified formulation ANGELI GUY [facility] 11-30-2019 influenza, high dose seasonal, preservative-free Dion Griggs Work Phone: [facility] 250 DO Work Phone: 10-31-2019 influenza virus vaccine, unspecified formulation Dion Griggs Work Phone: [facility] 11-23-2018 influenza virus vaccine, split virus (incl. purified surface antigen) Dion Griggs Other [facility] [employer] Other 11-23-2018 influenza virus vaccine, unspecified formulation ANGELI GUY [facility] 11-23-2018 influenza, injectabl e, quadrivalent, preservative free Dion E Gabriel Work Phone: [facility] DO Work Phone: 10-30-2018 influenza, high dose seasonal, preservative-free Dion E Gabriel Work Phone: [facility] DO Work Phone: 04-01-2015 pneumococcal conjuga te vaccine, 13 valent Dion E Gabriel Work Phone: [facility] 03-01-2015 pneumococcal polysaccharide vaccine, 23 valent Dion E Gabriel Work Phone: [facility] Comment on above: Series: 02-27-2015 pneumococcal conjuga te vaccine, 13 valent Dion Griggs Other [facility] 02-27-2015 pneumococcal Conjuga te, unspecified formulation; 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: [Need for prophylactic vaccination against Streptococcus pneumoniae (pneumococcus)] Dion Griggs Other [facility] [employer] Other 03-01-2010 influenza virus vaccine, unspecified formulation Dion E Gabriel Work Phone: [facility] DO Work Phone: 03-01-2006 pneumococcal polysaccharide vaccine, 23 valent Dion E Ball Work Phone: [facility] Work Phone: influenza virus vaccine, unspecified formulation Dion Griggs Work Phone: -[facility] DO Work Phone: Comment on above: 2009 Payers Date Payer Category Payer Unknown 2017 Self-pay [id number] 2017 Unknown [id number] 2009 Medicare MEDICARE MEDICAR E RAILROAD [id number] 2009-Present [address] [place] [address] [id number] 1959 Medicare [id number] 1959 Unknown [id number] 1944 Unknown [id number] 1944 Unknown [id number] [id number] 1944 Unknown [id number] [id number] 1944 Unknown [id number] [id number] 1944 Unknown [id number] [id number] 1944 Unknown [id number] [id number] 1944 Unknown [id number] [id number] 1944 Unknown [id number] [id number] 1944 Unknown [id number] [id number] 1944 Unknown [id number] [id number] 1944 Unknown [id number] [id number] 1944 Unknown [id number] 2.16.840.1.913032.3.579.2. 1944 Unknown [id number] 2.16.840.1.739578.3.579.2. 1944 Unknown [id number] [id number] 1944 Unknown [id number] [id number] Unknown [id number] Social History Date Type Detail Facility Start: 06-30-2023 No illicit drug use No illicit drug use [facility] 250 DO Work Phone: Comment on above: 3 cups coffee daily, occasionl diet soda; 1 beer a month; Start: 06-30-2023 Sex Assigned At N [facility] [employer] Other Start: 08-26-2021 End: 06-24-2023 Tobacco smoking status Ex-smoker (finding) [facility] Start: 04-28-2023 Tobacco smoking status Never [facility] Start: 1945 Sex Assigned At Male [facility] Start: 03-01-1972 History of tobacco use Current smoke r [facility] Work Phone: Start: 03-01-1972 History of tobacco use Cigarette Smo ker [facility] Work Phone: Start: 06-30-2023 Tobacco use and exposure Smokeless tobacco non-user [facility] Work Phone: Start: 06-30-2023 Alcoholic beverage intake Current drinker of alcohol (finding) [facility] Work Phone: Start: 06-30-2023 Alcohol Comment rarely [facility] Work Phone: Start: 1945 Sex assigned at Not on file [facility] Work Phone: Start: 06-20-2023 End: 06-30-2023 Exposure to SARS-CoV-2 (event) Not sure [facility] Medical Equipment Procedure Code Equipment Code Equipment Origin al Text Equipment Identifier Dates Start: 04-23-2014 Functional Status Date Assessment Result Facility 04-28-2023 Functional Status N/A [facility] 02-02-2023 Functional Status N/A [facility] 08-04-2022 Functional Status N/A [facility] 02-25-2022 Functional Status N/A [facility] 08-26-2021 Functional Status N/A [facility] Clinical Notes 08-26-2021 to 06-30-2023 [...] 3. Diabetes, managed by diabetes clinic at [facility] 4. Class I obesity. Encouraged more weight control with diet and exercise. 5. Coronary artery disease with 50% LAD stenosis in 2009 cardiac catheterization, nuclear stress test 2020 was normal risk factor have been aggressively targeted 6. 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 Obstructive sleep apnea compliant with CPAP machine. Jaleesa Conn MD, [facility] Review of Systems All other systems reviewed [...] day with meals., Disp: , Rfl: omega 4-aoi-ejy-fish oil (Fish OiL) 1,000 mg (120 mg-180 [...] discussion and plan. documented in this encounter [facility] Work Phone: 06-30-2023 Instructions Cleina Womack LPN - 06/30/2023 11:00 AM EDT [...] Increase physical activity. documented in this encounter [facility] Work Phone: 06-18-2023 Note [phone] [id number] SURGERY Clinical Discharge Summary PERSON INFORMATION Name JOSEPH ESCALONA Age 77 Years 1945 Sex MALE Language Setswana PCP Dion Griggs Marital Status Med Service Ambulatory Surgery Acct# Arrival 06/15/2023 11:20:08 Visit Reason SURGERY - CYSTOSCOPY Acuity LOS 008 05:56 Address: [address] [place] [address] Comment: PROVIDER INFORMATION VITALS INFORMATION Vital Sign [...] tab(s) Oral (giv (more content not included)... [facility] 04-28-2023 Hospital Discharge instructions Patient Education 04/28/2023 [...] including vitamins, herbs, eye drops, creams, and zdhg-uiu-djkzmwj medicines. ?Whether you are or may be [...] provider. Document Revised: 10/29/2021 Document Reviewed: 09/20/2020 [employer] Patient Education 2022 [employer]. Follow Up Care 03/26/2023 11:35:17 With:Paulino GAVIN, RUBEN Mendez, URO Address: [address] [place] [place] [phone] When: Unknown Comments:sched urodynamics [facility] 03-17-2023 Evaluation note Encounter Date Diagnosis Assessment [...] A1C are consistently < 7% f/u diabetic DESIGN INTERN Mar, Obstructive sleep apnea (ICD-10 - G47.33) This patient is aware of the benefits associated with GEOVANNA: With continued use, the patient reduces the risk for OH, CVA, HTN, cardiac dysrhythmias and sudden cardiac [...] (current) use of insulin (ICD-10 - Z79.4) [facility] Other 01-16-2024 Evaluation note* Encounter Date Diagnosis Assessment Notes Treatment Notes Treatment Clinical Notes Mar, Type 2 diabetes mellitus with hyperglycemia (ICD-10 - E11.65) [facility] Other 12-05-2023 Hospital Discharge instructions Patient Education [...] including vitamins, herbs, eye drops, creams, and ruhw-lea-dpmyyln medicines. Any problems you or family members [...] provider tells you to take them. Taking agze-cfq-osjkzeo medicines, vitamins, herbs, and supplements. Tests You [...] Follow these instructions at home: Medicines Take nnnx-dwu-ktkyrms and prescription medicines only as told by [...] provider. Document Revised: 10/29/2021 Document Reviewed: 09/27/2020 [employer] Patient Education 2022 [employer]. Follow Up Care 08/04/2022 10:55:35 With:BROOKS ANTHONY, ANGELI Montiel, URL Address: [address] [place] [address] [phone] When: Unknown Comments:sched cysto/TRUS [facility] 12-05-2023 NoteUrology Cystoscopy Cystoscopy is a [...] including vitamins, herbs, eye drops, creams, and zwft-dvl-pggibug medicines. ? Any problems you or family [...] tells you to take them. ? Taking swsj-txq-ysmbnkt medicines, vitamins, herbs, and supplements. Tests You [...] these instructions at home: Medicines ? Take ckbr-zwn-bzzqtct and prescription medicines only as told by [...] or the department th (more content not included)...[facility] 12-15-2022 Evaluation note* Encounter Date Diagnosis [...] f/u with pcp for further evaluation. Nov, senior care current use of insulin (ICD-10 - Z79.4) Nov, Vitamin B 12 deficiency (ICD-10 - E53.8) 05/2022 vit b 12 281 at target Nov, BMI 33.0-33.9,adult (ICD-10 - Z68.33) Setting weight-loss goals material was published [facility] Other 06-22-2023 Evaluation note* Encounter Date Diagnosis Assessment Notes Treatment Notes Treatment Clinical Notes 22 Roverto, 2023 Acute bacterial conjunctivitis of right eye (ICD-10 - H10.31) Wipe w/ warm wash cloth in morning Artificial tears Frequent hand washing Notify office or see video production specialist if develop pain, blurred vision or fails to improve Jul, Viral URI (ICD-10 - J06.9) Instructed to use Robitussin or Mucinex for cough, saline or Flonase NS for congestion, Tylenol for pain and fever. Jul, Type 2 diabetes mellitus with hyperglycemia (ICD-10 - E11.65) Acute infection may cause BS to increase temporarily. No adjustment in treatment necessary [facility] Other 06-06-2023 Hospital Discharge instructions Patient Education [...] urethra. Follow these instructions at home: Take plft-kew-itqzxnu and prescription medicines only as told by [...] provider. Document Revised: 09/03/2021 Document Reviewed: 09/03/2021 [employer] Patient Education 2022 [employer]. Follow Up Care 02/25/2022 10:18:55 With:ANGELI GUY PA-C, ROMANL Address: When:1 year [facility] 05-02-2023 Evaluation note* Encounter Date Diagnosis Assessment Notes Treatment Notes Treatment Clinical Notes June, Arteriosclerotic hea rt disease (ASHD) (ICD-10 - I25.10) LHC: 50% - 2009 [facility] Other 04-17-2023 Evaluation note* Encounter Date Diagnosis [...] f/u with pcp for further recommendation. 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 ?Whether you are or may be [...] 12/13/2007 Document Revised: 06/06/2019 Document Reviewed: 12/20/2017 [employer] Patient Education 2019 [employer]. Follow Up Care 08/26/2021 10:57:16 With:ANGELI GUY PA-C, URL Address: [address] [place] [address] When: Unknown [facility] 06-28-2022 Hospital Discharge instructions Patient Education 08/26/2021 [...] Follow these instructions at home: Medicines Take scoj-wqv-ojzhymm and prescription medicines only as told by [...] or the blood stops without treatment. Take qrvn-mgy-oyzjdng and prescription medicines only as told by your health care provider. Drink enough fluid to keep your urine clear or pale yellow. This information is not intended to replace advice given to you by your health care provider. Make sure you discuss any questions you have with your health care provider. Document Released: 02/15/2006 Document Revised: 07/12/2019 Document Reviewed: 03/20/2017 [employer] Patient Education 2020 [employer] Follow Up Care 02/25/2021 11:22:41 With:Hank Robbins MD, Kailee Szymanski, URO Address: [facility] [address], [place] [address]- [phone] When:02/25/2022 [facility] chidw complaint+Reason for visit Narrative* Chief Complaint meter [...] mellitus with hyperglycemia Medicare annual wellness visit, [facility] Work Phone: evaluation + Plan note Future Appointments Appointment Date:03/10/2022 10:15:00 AM Scheduled Provider:Kailee Mckinney Jr., MD Location:[facility] Appointment Type:URO Office Visit Diagnostic Tests Pending * PSA Total 08/26/21 [facility] evaluation + Plan note Future Appointments Appointment Date:08/04/2022 10:00:00 AM Scheduled Provider:ANGELI GUY PA-C Location:[facility] Appointment Type:URO Office Visit [facility] evaluation + Plan note Future Appointments Appointment Date:02/03/2023 01:00:00 PM Scheduled Provider:ANGELI GUY PA-C Location:[facility] Appointment Type:URO Office Visit [facility] evaluation + Plan note Future Appointments Appointment Date:04/28/2023 10:00:00 AM Scheduled Provider:Sara Bob MD Location:[facility] Appointment Type:URO Office Visit [facility] Evaluation noteNo orderTopiaFraser [employer] Other Evaluation noteNort [employer] Other Evaluation noteNo assessment information available [facility] Work Phone: Evaluation note* Diagnosis Onset Date Resolution Status Bilateral nephrolithiasis ac latasha Urinary retention with incomplete bladder emptying acute Pyelonephritis of right kidney noneactive Dietary counseling and surveillance acute Hyperlipidemia LDL goal <100 acute Primary hypertension acute Type 2 diabetes mellitus acu te Vitamin B 12 deficiency acut e [facility] Work Phone: Evaluation note* Diagnosis Essential [...] retention of urine documented in this encounter [facility] Work Phone: Evaluation note* Diagnosis Onset Date [...] acute Medicare annual wellness visit, subsequent noneactive [facility] Work Phone: Hisvwug general Narrative - Reported* Type Description Date Medical History hypertension Medical History hyperlipidemia Medical History DM2 Medical History obesity Medical History CAD- 50% occlusion LAD-Sees Dr Keila oro Surgical History appendectomy Surgical History RT knee surgery Surgical History arthroscopic knee surgery, left 01/17 Surgical History Cystoscopy 05/01/2020 Hospitalization History see above surgery [facility] Other Hisaynw general Narrative - Reported* Type Description Date [...] 1997 Hospitalization History see above surgery [facility] [employer] Other History [facility] - [facility] Other Hospital course Narrative No data available for this section [facility] [employer] Hospital Discharge instructions No data available for this section [facility] [place] Progress note No data available for this section [facility] [employer] Video reason for referral (narrative)* Consultation (Routine) - Authorized Specialty Diagnoses / Procedures Referred By Constantino t Referred To Contact Cardiology Diagnoses ASCVD (arteriosclerotic cardiovascular disease) Procedures Follow Up In Cardiology Jaleesa Conn MD [address] [place] [address], [place] [address] Jaleesa Conn MD [address] [place] [address] 2, [place] [address] Referral ID Status Reason Start Date Expiration Date V isits Requested Visits Authorized [id number] Authorized 06/30/2023 06/29/2024 1 1 [facility] Work Phone: Summary Purpose Family History No [...] 3. Diabetes, managed by diabetes clinic at [facility] * 4. Obesity. Encouraged more weight [...] 3. Diabetes, managed by diabetes clinic at [facility] * 4. Obesity. Encouraged more weight control with diet and exercise. His weight has increased 10 pounds from last visit, encouragement provided to reduce calorie consumption since he seems to be physically active * 5. Coronary artery disease with 50% LAD stenosis in 2009 cardiac catheterization, nuclear stress test 2020 was normal risk factor have been aggressively targeted * Jaleesa Conn MD, [facility] * JOSEPH ESCALONA is being seen for [...] 3. Diabetes, managed by diabetes clinic at [facility], recent A1c 7.2 * 4. Obesity. [...] section and content) DATE CREATED AUTHOR 08/16/2019 [facility] DATE CREATED AUTHOR AUTHOR'S ORGANIZ ATION 03/26/2020 [facility] [employer] [facility] DATE CREATED AUTHOR AUTHOR'S ORGANIZ ATION 06/15/2022 [facility] DATE CREATED AUTHOR AUTHOR'S ORGANIZ ATION 07/01/2022 [facility] DATE CREATED AUTHOR AUTHOR'S ORGANIZ ATION 07/02/2022 [facility] DATE CREATED AUTHOR AUTHOR'S ORGANIZ ATION 04/15/2023 [facility] DATE CREATED AUTHOR AUTHOR'S ORGANIZ ATION 07/08/2023 [facility] DATE CREATED AUTHOR AUTHOR'S ORGANIZ ATION 07/28/2023 Maurisio Billings [facility] DATE CREATED AUTHOR AUTHOR'S ORGANIZ ATION 09/13/2023 [facility] Ambulatory REASON FOR VISIT (unrecogniz [...] March 17, 2023 End: March 17, 2023 In Flight Technician Relationship Specialty Start Date End Date [...] BE BASED ON THE PRIMARY CLINICAL RECORDS. [facility] [employer] [facility]. provides no warranty or guarantee of the accuracy or completeness of information in this document.
== END 2023-10-05 09:12 | disposition home or self-care (01) ==
LOC: LAB 09:13
PROVIDERS: PCP Internal Medicine; Visit Provider Urology
DX: R39.9 Unspecified symptoms and signs involving the genitourinary system (principal)
CPT/HCPCS: 87086

== ENCOUNTER 2023-10-11 12:45 | Outpatient (OUT) | payer MEDICARE, SELFPAY | END 2023-10-11 12:46 | disposition home or self-care (01) | LOC: PST 12:45 | PROVIDERS: PCP Internal Medicine; Visit Provider Urology | DX: Z01.818 Encounter for other preprocedural examination (principal); N20.1 Calculus of ureter ==

== ENCOUNTER 2023-10-27 09:51 | Day surgery (SDC) | payer MEDICARE, SELFPAY ==
[2023-10-27] VITALS (12 sets, daily range): BP systolic 126–153; BP diastolic 62–78; PULSE 71–84; TEMP 36.1–36.6; O2SAT 91–97; BMI 30.9
--- OUTSIDE RECORDS SUMMARY | 2023-10-27 10:07 | XMS_ITS | CCD ---
Author Organization [facility] CliniSyin Care Team Providers Care Wire Annealer Name Role Phone ANNIKA, CACHORRO Referring Unavailable CLIFF RODRIGUEZ Attending Unavailable PROVIDER, [...] Conn Referring Unavailable Dr. Dion Griggs [place] [facility] Unavai lable Mapus, Tondra K Attending Unavailable Cristobal, Tondra K Admitting Unavailable Dion Griggs Primary Care Unavailable Dion Griggs DO Primary Care Provider Ton Rhodes Attending Unavailable Ton Rhodes Admitting Unavailable Dion Griggs Primary Care Unavailable JALEESA CONN Attending Unavailable DION GRIGGS Primary Care Unavailable Sara Bob Attending Unavailable GABRIELLE GUY Attending Unavailab GABRIELLE Dawkins Attending Unavailab Sara Teixeira Attending Unavailable Sara Bob Attending Unavailable Sara Bob Referring Unavailable Sara Bob Attending Unavailable GABRIELLE GUY Attending Unavailab Sara Teixeira Attending Unavailable Allergies Allergy Classification Reported Allergen(s) Allergy Type Date of Onset Reaction(s) Facility (3 sources) patient allergy list reviewed by nurse or physicia Propensity to adverse reactions 4 Comment:Done [employer] Other (1 source) No Known Medication Allergies; [...] 24, 2023 1:41pm take 1 tablet by [facility] every other day cholecalciferol (Vitamin D-3) 25 MCG (1000 UT) tablet Take 1 tablet (1,000 Units) by mouth every other day. Active take 1 capsule by [facility] every twenty-four hours Vitamin D3 25 MCG (1000 UT) 1 capsule Orally Once a day Active take 1 capsule by mo [facility] every week Vitamin D3 10 MCG [...] Ordered take 1 tablet by lorena th twice daily at mealtime metFORMIN (Glucophage) 1,000 mg tablet Take 1 tablet (1,000 mg) by mouth 2 times a day with meals. Active take 2 tablets by mo wih once at breakfast, then take 1 tablet by mouth twice daily at dinner metFORMIN HCl ER 500 MG 2 tablet with breakfast and 1 tablet with dinner Orally BID Pt could not tolerate IR metformin d/t g/i s/e Active omega 0-vjj-bci-fish oil (Fish OiL) 1,000 mg (120 mg-180 mg) capsule (1 source) take 2 capsules by mouth every other day omega 4-vhn-kir-fish oil (Fish OiL) 1,000 mg (120 mg-180 [...] Daily, # 30 cap(s), Refills(s) 11, Pharmacy: [facility]/pharmacy #[id number], 168, cm, 02/25/22 9:50:00 EST, [...] 02/28/20 Status: [facility] Lisinopril 10 mg 1 tablet Orally daily Active [place] 7-Qto-Ijr-Fish Oil (Fish Oil) 1,000 mg (120 mg-180 mg) capsule (3 sources) Start: 05-24-2023 End: 06-24-2023 take 1 capsule by mouth once daily [place] 3-Fmt-Aah-Fish Oil (Fish Oil) 1,000 mg (120 mg-180 mg) capsule Discontinued 1 CAP PO Daily May 24, 2023 12:00am June 24, 2023 1:40pm Start: 05-24-2023 take 1 capsule by mo [facility] once daily [place] 4-Ohe-Ldf-Fish Oil (Fish Oil) 1,000 mg (120 mg-180 [...] sources) Long-term current use of insulin; 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: [brokerage branch manager (current) use of insulin] 05-24-2023 Episodic Other aftercare (6 sources) brokerage branch manager (current) use of insulin; 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: [long-term (current) use of insulin (Multi)] Onset: 02-23-2023 Episodic Other aftercare (4 sources) Long-term current use of drug therapy; 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: [Other asl interpreter (current) drug therapy] Episodic Other diseases of [...] 07-27-2023 Reminders - From: Mayte Edmonds To: EU - Recalls Lue; Sent: 04/28/2023 10:39:26 EST Show up: 07/05/2023 10:39:00 EDT Subject: Schedule Urodynamics Due Date/Time: 08/05/2023 10:39:00 EDT Reminder/Recall Per KM, patient needs to be scheduled to have Urodynamics done once she returns as of July. Will need to call patient prior to KM's return to schedule, [facility] for [facility]. Called patient, no answer. LM to return call to the office. - From: Mayte Edmonds ( - Recalls Paulino) To: Sara Bob MD; Sent: 07/22/2023 16:11:53 EDT ! Show up: 07/22/2023 16:11:00 EDT See message below from previous message created on 06/04/23. Patient is now being seen by Dr. Rhodes and no longer desires being seen in our office. From: Mayte Edmonds Sent: 06/04/2023 09:52:41 EDT Subject: Cancel Procedure Caller Name: JOSEPH ESCALONA; Caller Number: Anila , B Patient called the PAC earlier today and was upset stating he wanted to cancel the upcoming urodynamics with [facility] on 06/21/23. Patient was advised that needed to be cancelled by a manager van and began yelling at the PAC, stating [...] a call. Patient voiced his understanding. Normal [facility] Automated urine specific gra vity by refractometryon 06-29-2023 Specific gravity Refractometry automated (U) [Rel density] 1.025 1.005-1.025 [facility] Bilirubin Auto test strip (U ) [Mass/Vol]on 06-29-2023 Bilirubin (U) [Mass/Vol] Negative NEGATIVE [facility] Color Auto (U)on 06-29-2023 Color (U) YELLOW YELLOW [facility] Glucose [Mass/volume] in Uri ne by Test stripon 06-29-2023 Glucose Test strip (U) [Mass/Vol] Negative NEGATIVE [facility] Ketones Auto test strip (U) [Mass/Vol]on 06-29-2023 Ketones (U) [Mass/Vol] Negative NEGATIVE Fi [facility] - Microbiology an d Antimicrobial susceptibilityOrdered By: Dion Griggs on 06-29-2023 Bacteria identified Cx Nom (U) [facility] Protein Auto test strip (U) [Mass/Vol]on 06-29-2023 Protein (U) [Mass/Vol] Negative NEG/TRACE [facility] Specific gravity Auto test s trip (U) [Rel density]on 06-29-2023 Specific gravity (U) [Rel density] SL CLOUDY CLEAR [facility] Urine hemoglobin detection b y automated test stripon 06-29-2023 Hemoglobin Auto test strip Ql (U) LARGE Abnormal NEGATIVE [facility] Urine nitrite detection by a utomated test stripon 06-29-2023 Nitrite Auto test strip Ql (U) SMALL Abnormal NEGATIVE [facility] Nitrite Auto test strip Ql (U) Positive Abnormal NEGATIVE [facility] Urobilinogen Auto test strip (U) [Mass/Vol]on 06-29-2023 Urobilinogen Qn (U) 0.2 {Raeann'U}/dL 0.2-1.0 [facility] pH Auto test strip (U)on pH (U) 5.5 [pH] 5.0-9.0 [facility] Coding Summaryon 06-24-2023 Coding Summary HTMLBase 64 SsfunhgfRFk6qIg+PGhl YWQ+GX9HCVRgO45syEFl zZ2zC6AWRYzJUjbeWOVI VUnIQwQlrbEjHL6ujIGs ZXJu IC8+UI5gNZMiIggycQZk l3E8bBZ6W18xcb2fWIqn gXA6DKNhRcCyxsjdj1xn eAi2HXnyLhhrDwDq QCFpiN50JDW4bE06Fs50 nQZniKPzf9qvoYb0PzRq WBRcMEF5oQgkBAmvv6Zk FFVlD98hdGPbp0X4 IGNvbGxhcHNlOyBlbXB0 aU9yIPudyujgr3mpnnwq Ntn2xx42tCYyv5H2pVY6 F9KkhlR1OMWdeGXa ErnbsTLVzV4lwlerl6gg ctoiBvBqZAFvTKq9ZOd7 LTKhgVshQqTvJJ17HJQ2 VSRnmxCaM4XyZCNg iJokXiI5l8K1Tu9MB5MD OktrP8TGBFQIBWierCF+ EV93gf03J0SpTraxSbu1 JKXgNIZ9cSZ7yW8k RUPzFXvqe5F6kWR8H9Rx ibNjre8au1mrVYKhNSvo G83oyIBii5V6JCJerNK0 IMXeuYyhWoDubZ03 Oyc+FRXkwFkll6TgGats d3ews3cwrYl3YajfGYKv kzSntZucKIV1f0DmXh6b TVSqeVJ0kOM2uV4e XnEaHwR5XExwI117DzXx zRAvSlkrW96oB1FrcMI+ IIFzWyb9ROIlvDywNS8r W1YtYLXppafosBSa iUbrJB1zZDMksxqpZYPi jI6iPJGiT3n5HfEgDkH9 REjgQ4ElGEJfdxbgJo58 yG8hJvWmMxY8DAxu D0HysgZ7UPHahJFjRKke GOU0N55yw4C5CSWcVAMf JKL2xOV9dE5snZdtiuvr bGVmdDsgdmVydGlj VGovHVptE294GLUjcFub PkNvZGluZyBEYXRlOiAg MDQvMjUvMjAyNDwvdGQ+ JQGlCGC1nJawRJBl yIPeJVnwAj0owNldsNop HW2mDLGiwytgTROofG3x SMYmzDHyaXqkRY7mJIUu ebixe342WiMoUTZ3 DEExuUTcZ8WivD0mLwZd BBJnIRHaC6LblMZvLSqz G841AQvhMkD1XRNqodYd F8PpASRlzHmoWqB1 i1Q0Sz2Up3TzodnxE8Gx lYZjDlCsOdodFYh8T7Uu PjwvdHI+OS39COUaUV73 YGl8UZT1lYvgHAhu RQXwA7WyrD4hVpZwLZDg ZGRkOyc+PHRhYmxlIHdp ZHRoPScxMDAlJyBzdHls WV3zXb8zNGUoULSv jTclzGIpSqXzb5xdRHEu GDxvZH7ahYltS7SsdHE2 ZLEsy9z1Gm86K82kG3Xj dXA+IGJrkUF5oLB0 vQ2lTrNqGdZ3BUtnU727 YvYgzPMvLvhqg6kke5bg jZg3UtQ0JXYwzvJujWow QRF4k1SvQy49D58j IHdpZHRoPSIxNSUiIHZh iStaoi9xqH8qZi2+PGNv dOR5sEI0tJ4kNhSgJyD2 IPziR647XhAsrBWv Xreyc3wyj1umtPf1QhVj LNGotkIucBbmPJW9j2Qz Jm11Y7KjyHtfi0RjFir1 rt33gCXye3F2kHH1 D0OjHOJrverfhRYsfCli RG4fDDShofvbCZVgzR2h IUMgY9v3GbKeOuL1LHmt R8QzxuZ2SWTefJXm JFWiuANTbW3nftadq1jx qeqmRzGsLTBzVRo3ENh9 SHXrsItdLhUxHTD7MuM3 SUA6gRDqwB3iaHul svpfnJ4dTri+ZXS5zQZr gQAGBD0fRsunuHX+PHRk WJD8qZabEKtzEWKitO0a QKRlF4c4HtMiTaO1 LJzkL0IxqhF1UMQuyHBy PVVeyJHEqQ2gcgeht1vx gkupHtYnRMTwJBz5ZLh9 LWFsaWduOiBsZWZ0 EnS9KVT2eGPtnS6hoEyf mkdmkQ2lBbh+QmlydGgg JWP4IQu9B1ZcDka5PCNc ySckMM7pkNZyVNsk Fq1wvNtlvAgoWA6xFMEs peyxx159MkDwo1jdDYHf rGTbYNupKKI3F70hn8Q8 NWUiNWOzFKH5bCK2 uY5suKzryaojfSXaiBrf klKqaQkrQGjhKTnsI645 QKBhjYttHbTsXMg2V4Yr Mlt8IPNfcVcoGY4k oPHcRExuQu0vbZhzuWur CO9fSYKkcazkl426DiDc x2xkYLUziHWpLYkuKPJ5 I40ed7B0NHHcCKGv GFJ8yGB3oS4nvGxbqgsu bGVmdDsgdmVydGljYWwt AXpnZ470ABFeuKbyCpYn rTe8Q8WbEdv0DXIz sYfdDE7rwSIvXMvyPe3w lUujvDyaZT4sPQSlqurm x638XnFrc6qgEIUstZUx FKjoHAD3Y87ii0L8 QUTxOUWcNAP5uNX7wD1w bGlnbjogbGVmdDsgdmVy eGszHEtnTLgwZ069JUTi cDsnPlBhdGllbnQg OGfnGZf6O4YfPexjzMW+ CY29MTXiLH65tQPqwVDp k8twvCq7CdOpXZYlHGQ5 xKqhUUkjv9UnUUAa E40mwUNcm0L5ZOMovLuy eDIaDlLdxNN1gN5zCNvv bbduh6cynirvOixzz0qr mq93uZ34X12gGCux ZHRoPSIzMCUiIHZhbGln ay2noW9jVd0+PGNvbCB3 dDY7kR0aEWSfGjI5XTsx H446LmKjuDQsEmux c9ttw9ovmUt0JdI2JYOv cwNwqWvqZAQ5d3IhUg12 O54rPOenGGFeLZXmFPVt AIWyiEtoxw4ocS7e Ii8+SIRxvVC7iTI7qB5e GvWbEdE5ZRpfD891MdBt wVDrBqqsF85bL0TlnSP+ HHUoHwn7IFWwsPnd UO9zoDDkCCkcFz9qJDD0 ZvMwUuUkFZmwU5CkGPRk nzvuftuttRU3MMUpQFEt fC96Cq1rlGbbABYy yJWRzQ4esrcaa2ipsago XkGtPVNwPUv2GTa8MBMa kLhfFsBlZPN5PfR6AGB7 aVJstW5plKiqsrjw cS2oH6AmSPMxeuynGc15 bJ5vRlThUnD1GGjvEuv+ Wt8EGCIXULQKTKFNFNTn R9eYTUyNTFnkeBA+ ZXJsRHE1mRjrVLifIQHo dU6mLKHkI2s5ReOuZoK0 UUoxQ5OsLSJhxywgIj91 gA6mYaUtFoS0IBkt V9XjapJ3HFKdaYOjFExu WYD3C50we7F9AQLnQUBy JPQ1aIV8jD4cwJkdrtlz bGVmdDsgdmVydGlj ZBtsADlcF824MFXzxRxg YdU8GgC0MzS5EYZ1N5Rm Vuw8PTLhoCnjQP5suKMf HKnwNd6hhGoxvWsw OK2nQRZqkngpPBNgwG9t VMRbdQOzgCnxAM2nIWYh gztwg871QrDtIHZ7QNGu lOLfT3JgoX1mYoNh PPLlLFTlM7JxoRYkKTtx W703VTjlJmX7XFDrgoPq I4HtHZAmrCtaEjU8h6V1 Yq75NUBXENQxymqh dGQ+QUCgCXZ0sEofZOln SBSfjM8xEJUvY8h3LbTs HtZ6VXpwR9FqCFVleacb Bv00dZ2iUqYuArP5 UJsvG5WjiqH6QRImbRVf CQisAEO2C65mj3P3OSZz ICZvBAF6jOZ7hD3veFxu bjogbGVmdDsgdmVy pLjbKZgtDSnhC945QRCq nWqwAw2UFWL5W6QhGwo5 ZTJmzItwZD8spBYjFFli Hk1syOupcHgaFC9y JGOebjxtJSPheR6xLKEb bOAfnQtcZV2vOYJiiuad r984ScYmQJM4QSXiyDNi Q0XtcF1eWeLrDUXe AACgP8NejCFpDXjdA676 APsrBqP9BXMygfDkF7Gj DGBndPxwZlP5d2L8Qw3Y GJmsH0DxO0XzoOzp dGQ+XL11ik22X3LeVzwp Zak7SDMsITP4vRI0tM4m HNDtNKzcz7Y3fNG4C1Pd rnHyqi6qa3blERRc WMoeF67szIDva3L6DEIb uPU5HMZvtVktMhFwlK37 Oyc+WBTtsFbiu5BaDsdo e4zkk7abnFw9RoPg JRJwrjJmwWxpBLL5v4Eq Xn01G61xUHnfAOHrFFXl CCKwBYYgiKqhuu3fxR5z Ii8+BSUjqTL2iNT9 aF9rZgIhZxR3MMahC866 GdXxxXUqAlvyc9dew2mg wGv0ZvMiYFMujkCkgLer WXK8n3ZvRm45U6Bv hNmvc4XtXkl3fa56qNXz q0S2lJQ4E3WaEMHrictp mRSowKmwBP4tKWGktgou VVGpfM2zVZAmK0y6 NwNbKoB9CHpgR8QwwcA9 UYClcGPmYLHjkHMJmE4p bfles7ldazkyCtDlNCRz FEd2NOp7IIVkiUzi XtQwSQO4PiW4YAJ1aFRe iU6miBzsrrixjI0fVtk+ SWj8n3akuBYgSR7ykNL6 IZ75WN86gNPkm9S9 fIM9P5TbVZUactmreeqi hXZ0CHGzXTXkqV67To1t xQphYr3jXFSeJHF9QEGg fMFvD4VekG6lMvPt GCPpVNXvB5WnhOXyJTwg F493IAztFhU1ZPMlclSe J9GrWKZuuZxqJeI6y9P7 Cd4MNI28VB68JC91 dBPwg2K6jVU4I7TuFKZh txlirdqmvKF3QKRjEHWf pV13Am5jcVfmRs3fGFYd UWJ4LXMqqAAeD9Vq dZ4jWbOoZGOzPXFoU7Du hAIpBLucD868UPyqHdK5 KELjkbMjH5MeHHLneJgo CaR6e7Y4Vi7BIc37 WC17QI26hTCkc9D2oWS3 Z5ScRGFhqcznkfdgnXQ7 RZIiSVVxkV86Us4fuAac Ht2aSJDeWCG2LNLk iAXtV7VgoF3mEqTsXDEg WBPgE4XehMPrDVrxZ613 NUdhOfK6AVEkbeScQ4Fv MFEjfLlxWrS0s8K3 Tf1FTPofduc5G8VtCqth dHI+HP49VQRfCW10iSAv iSPcp4dsnBp3IgCpVVRg GKI4uLdhFOhzx7Is ZXI (more content not included)... Normal [facility] HbA1c HPLC (Bld) [Mass fract ion]on 06-24-2023 HbA1c (Bld) [Mass fraction] 6.9 % [facility] No Panel Informationon 06-23 Bedside Glucose 103 [facility] Cholesterol in LDL Calc [Mas s/Vol]on 06-22-2023 Cholesterol in LDL [Mass/Vol] 40.2 mg/dL [facility] Comment on above: <100 mg/dl OIXCIPH40 0-129 mg/dl NEAR OR ABOVE ESCIFCC590-085 mg/dl BORDERLINE BTPY773-534 mg/dl HIGH>190 mg/dl VERY HIGH Cholesterol in VLDL Calc [Ma ss/Vol]on 06-22-2023 Cholesterol in VLDL [Mass/Vol] 12.8 mg/dL [facility] Estimated glomerular filtrat ion rate (GFR) non- Americanon 06-22-2023 GFR/1.73 sq M.predicted among non-blacks MDRD (S/P/Bld) [Vol rate/Area] mL/min/{1.73_m2} >=60 [facility] Globulin Calc (S) [Mass/Vol] on 06-22-2023 Globulin (S) [Mass/Vol] 3.6 g/dL F [facility] Laboratory - Chemistry and C hemistry - challengeon 06-22-2023 Albumin [Mass/Vol] 3.7 g/dL 3.4-5.0 [facility] ALP [Catalytic activity/Vol] 48 U/L 46-116 [facility] ALT [Catalytic activity/Vol] 34 U/L 16-63 [facility] AST [Catalytic activity/Vol] 20 U/L 15-37 [facility] Bilirubin [Mass/Vol] 0.5 mg/dL 0.2-1.[address] [facility] Calcium [Mass/Vol] 9.2 mg/dL 8.5-10.1 [facility] Chloride [Moles/Vol] 106 mmol/L 98-[address] [facility] Cholesterol [Mass/Vol] 102 mg/dL <=200 [facility] Cholesterol in HDL [Mass/Vol] 49 mg/dL 40-60 [facility] Comment on above: > or =60 mg/dl - LOW CARDIOVASCULAR RISK<40 mg/dl - HIGH CARDIOVASCULAR RISK CO2 [Moles/Vol] 26.8 mmol/L 21.0-32.0 [facility] Cobalamin (Vitamin B12) [Mass/Vol] 456.0 pg/mL 193.0-986.0 [facility] Creatinine [Mass/Vol] 1.04 mg/dL 0.70-1.30 [facility] GFR/1.73 sq M.predicted MDRD (S/P/Bld) [Vol rate/Area] mL/min/{1.73_m2} >=60 [facility] Glucose [Mass/Vol] 82 mg/dL 74-106 [facility] Potassium [Moles/Vol] 4.2 mmol/L 3.5-5.1 [facility] Protein [Mass/Vol] 7.3 g/dL 6.4-8.2 [facility] Sodium [Moles/Vol] 143 mmol/L 136-145 [facility] Triglyceride [Mass/Vol] 64 mg/dL <=150 F [facility] Urea nitrogen [Mass/Vol] 19.0 mg/dL High 7.0-18.0 [facility] Urea nitrogen/Creatinine [Mass ratio] 18.3 mg/mg [facility] Microalbumin [Mass/volume] i n Urineon 06-22-2023 Albumin DL <= 20 mg/L (U) [Mass/Vol] 3.9 mg/dL <=30.0 [facility] No Panel Informationon 06-21 Urine Random Creatinine 136.06 mg/dL 20.0 0-300.0 0 [facility] Serum or plasma albumin/glob ulin mass ratioon 06-22-2023 Albumin/Globulin [Mass ratio] 1.0 {ratio} [facility] Serum or plasma anion gap de terminationon 06-22-2023 Anion gap [Moles/Vol] 14.4 mmol/L [facility] Serum or plasma total choles terol/high density lipoprotein (HDL) cholesterol mass ceferino 06-22-2023 Cholesterol.total/Choles terol in HDL [Mass ratio] 2.1 {ratio} [facility] Comment on above: 3.3 - 4.4 LOW RISK4. 4 - 7.1 AVERAGE RISK7.1 - 11.0 MODERATE RISK>11.0 HIGH RISK Urine microalbumin/creatinin e mass ratioon 06-22-2023 Albumin/Creatinine DL <= 20 mg/L (U) [Mass ratio] 28.6 mg/g 0.0-29.9 [facility] Comment on above: NO MICROALBUMINURIA 0-29 MG/GCLINICAL MICROALBUMINURIA 30-300 MG/GMACROALBUMINURIA >300 MG/G Provider Orderson 06-18-2023 Provider Orders [id number][facility]23 Consent Forms [id number]#1. [facility] Summaryon 06-15-2023 [place] [address] Patient Discharge Instructions Name: JOSEPH ESCALONA : 1945 Patient Address: [address] [place] [address] Primary Care Provider: Name: Dion Griggs After you are discharged if you find you have any questions, please, call [phone] ext [phone] to speak to a nurse. Discharge Diagnosis: [...] alcohol and/or drug addiction problems; contact the [facility] 21/09 Crisis Hotline -Text 4HOPE to 909822. If you received any narcotics, sedation, or [...] Continue That Have Not Changed Other Medications amlodipine-benazepri l (amlodipine-benazepr il 5 mg-20 mg oral capsule) 1 cap(s) [...] list that you can keep with you. amlodipine-benazepri l (amlodipine-benazepr il 5 mg-20 mg oral capsule) 1 cap(s) [...] Finalized Date/Time: 06/15/23 13:21:43 Pt. Name: JOSEPH ESCALONA EDUARDO Paige/Sex: 1945 MALE Med Rec #: [id number] Physician: Ton Rhodes MD Financial #: [id number] Pt. Type: D Room/Bed: / Admit/Disch: 06/15/23 [...] MD, Erica RN Adkins, Brittany E CSFA FORMULA TECHNICIAN Role Performed Surgeon - Primary Embedded Case Manager Chip Machine Operator Time In 06/15/23 13:16:00 06/15/23 13:12:00 06/15/23 13:12:00 Time Out 06/15/23 13:21:00 06/15/23 13:21:00 06/15/23 13:21:00 Procedure Cystoscopy Local Cystoscopy Local Cystoscopy Local Last Modified By: Parisa Vargas RN, Erica RN Baumer, Erica RN 06/15/23 13:21:22 06/15/23 13:21:22 06/15/23 13:21:22 Entry 4 Case Attendee Jerri Reynolds FORMULA TECHNICIAN Role Performed Scrub Personnel Time In 06/15/23 [...] 13:16:00 Participants Parisa Vargas RN, Angeles Rothman FORMULA TECHNICIAN, Jerri Reynolds FORMULA TECHNICIAN Last Modified By: Parisa Vargas RN 06/15/23 [...] Area (Im.270) Perin (more content not included)... [facility] MAGR Preoperative Recordon 0 06-15-2023 MAGR Preoperative Record MAGR Pre-Op Rec ord Summary Primary Physician: Ton Rhodes MD Finalized Date/Time: 06/15/23 13:46:25 Pt. Name: JOSEPH ESCALONA /Sex: 1945 MALE Med Rec #: [id number] Physician: Ton Rhodes MD Financial #: [id number] Pt. Type: D Room/Bed: / Admit/Disch: 06/15/23 [...] Signed By: Guera Pascual RN 06/15/23 13:46 [facility] Patient Handouton 06-15-[address] [facility] ED Note-Physicianon 05-27-19 ED Note-Physician [id number] #1.00TIFF Normal [facility] Automated epithelial cells c ount in urine sediment (number/area)on 05-24-2023 Epithelial cells Auto (Urine sed) [#/Area] RARE #/LPF NONE/RARE [facility] Automated leukocytes count i n urine sediment (number/area)on 05-24-2023 WBC Auto (Urine sed) [#/Area] 50-75 #/HPF 0-2 [facility] Automated urine specific gra vity by refractometryon 05-24-2023 Specific gravity Refractometry automated (U) [Rel density] >=1.030 1.005-1.025 [facility] Basophils Auto (Bld) [#/Vol] on 05-24-2023 Basophils (Bld) [#/Vol] 0.0 10 3/uL 0.0-0.1 [facility] Basophils/100 WBC Auto (Bld) on 05-24-2023 Basophils/100 WBC (Bld) 0.4 % 0.2-2.0 F [facility] Bilirubin Auto test strip (U ) [Mass/Vol]on 05-24-2023 Bilirubin (U) [Mass/Vol] Negative NEGATIVE [facility] Casts typing in urine sedime nt by light microscopyon 05-24-2023 Casts LM Nom (Urine sed) NONE SEEN #/LPF NONE S EEN [facility] Color Auto (U)on 05-24-2023 Color (U) YELLOW YELLOW [facility] Eosinophils/100 WBC Auto (Bl d)on 05-24-2023 Eosinophils/100 WBC (Bld) 1.1 % 0.9-7.0 [facility] Erythrocyte distribution wid th Auto (RBC) [Ratio]on 05-24-2023 Erythrocyte distribution width (RBC) [Ratio] 13.0 % 11.0-15.0 [facility] Estimated glomerular filtrat ion rate (GFR) non- Americanon 05-24-2023 GFR/1.73 sq M.predicted among non-blacks MDRD (S/P/Bld) [Vol rate/Area] mL/min/{1.73_m2} >=60 [facility] Globulin Calc (S) [Mass/Vol] on 05-24-2023 Globulin (S) [Mass/Vol] 4.0 g/dL F [facility] Hematocrit Auto (Bld) [Volum e fraction]on 05-24-2023 Hematocrit (Bld) [Volume fraction] 40.9 % 42.0-54.0 [facility] Hemoglobin [Mass/volume] in Bloodon 05-24-2023 Hemoglobin (Bld) [Mass/Vol] 13.6 g/dL 14.0-18.0 [facility] Ketones Auto test strip (U) [Mass/Vol]on 05-24-2023 Ketones (U) [Mass/Vol] TRACE mg/dL NEGATIVE F [facility] Laboratory - Chemistry and C hemistry - challengeon 05-24-2023 Albumin [Mass/Vol] 3.6 g/dL 3.4-5.0 [facility] ALP [Catalytic activity/Vol] 63 U/L 46-116 [facility] ALT [Catalytic activity/Vol] 24 U/L 16-63 [facility] AST [Catalytic activity/Vol] 15 U/L 15-37 [facility] Bilirubin [Mass/Vol] 0.6 mg/dL 0.2-1.[address] [facility] Calcium [Mass/Vol] 9.0 mg/dL 8.5-10.1 [facility] Chloride [Moles/Vol] 102 mmol/L 98-[address] [facility] CO2 [Moles/Vol] 26.5 mmol/L 21.0-32.0 [facility] Creatinine [Mass/Vol] 1.12 mg/dL 0.70-1.30 [facility] GFR/1.73 sq M.predicted MDRD (S/P/Bld) [Vol rate/Area] mL/min/{1.73_m2} >=60 [facility] Glucose [Mass/Vol] 213 mg/dL 74-106 [facility] Lactate [Moles/Vol] 1.6 mmol/L 0.4-2.0 [facility] Lipase [Catalytic activity/Vol] 23.0 U/L 16.0-77.0 [facility] Potassium [Moles/Vol] 3.6 mmol/L 3.5-5.1 [facility] Protein [Mass/Vol] 7.6 g/dL 6.4-8.2 [facility] Sodium [Moles/Vol] 140 mmol/L 136-145 [facility] Urea nitrogen [Mass/Vol] 15.0 mg/dL 7.0-18.0 [facility] Urea nitrogen/Creatinine [Mass ratio] 13.4 mg/mg [facility] Laboratory - Hematology and Cell countson 05-24-2023 Immature granulocytes/100 WBC (Bld) 0.6 % 0.0-0.5 [facility] Laboratory - Microbiology an d Antimicrobial susceptibilityon 05-24-2023 S. agalactiae Org specific cx Ql (Vag fld) Not detected NOT DETECTE [facility] Leukocytes [#/volume] correc bethany for nucleated erythrocytes in Blood by Automated counon 05-24-2023 WBC corrected for nucl RBC Auto (Bld) [#/Vol] 10.8 10 3/uL 4.0-11.0 [facility] Lymphocytes Auto (Bld) [#/Vo l]on 05-24-2023 Lymphocytes (Bld) [#/Vol] 0.8 10 3/uL 1.2-3.8 [facility] Lymphocytes/100 WBC Auto (Bl d)on 05-24-2023 Lymphocytes/100 WBC (Bld) 7.4 % 20.5-60.0 [facility] MCH Auto (RBC) [Entitic mass ]on 05-24-2023 MCH (RBC) [Entitic mass] 28.8 pg 25.9-34.0 [facility] MCHC Auto (RBC) [Mass/Vol]on 05-24-2023 MCHC (RBC) [Mass/Vol] 33.3 g/dL 29.9-35.2 [facility] MCV Auto (RBC) [Entitic vol] on 05-24-2023 MCV (RBC) [Entitic vol] 86.5 fL 80.0-94.0 F [facility] Monocytes Auto (Bld) [#/Vol] on 05-24-2023 Monocytes (Bld) [#/Vol] 1.1 10 3/uL 0.3-0.8 [facility] Monocytes/100 WBC Auto (Bld) on 05-24-2023 Monocytes/100 WBC (Bld) 9.9 % 1.7-12.0 [facility] Mucus LM Ql (Urine sed)on Mucus Ql (Urine sed) MODERATE NONE SEEN [facility] Neutrophils Auto (Bld) [#/Vo l]on 05-24-2023 Neutrophils (Bld) [#/Vol] 8.8 10 3/uL 1.4-6.5 [facility] Neutrophils/100 WBC Auto (Bl d)on 05-24-2023 Neutrophils/100 WBC (Bld) 80.6 % 43.0-75.0 [facility] No Panel Informationon 05-23 Urine Culture Reflexed YES [facility] Urine Microscopic Review YES [facility] A.calcoaceticus-baumanni i cmplx PCR Not detected NOT DETECTE [facility] Bacteroides fragilis (PCR) Not detected NOT DETECTE [facility] Blood Culture Source blood [facility] Jhoana albicans (PCR) Not detected NOT DETECTE [facility] Jhoana auris (PCR) Not detected NOT DETECTE [facility] Jhoana glabrata (PCR) Not detected NOT DETECTE [facility] Jhoana krusei (PCR) Not detected NOT DETECTE [facility] Jhoana parapsilosis (PCR) Not detected NOT DETECTE [facility] Jhoana tropicalis (PCR) Not detected NOT DETEC [facility] Crypto neoformans/gattii (PCR)(LAB) Not detected NOT DETECTE [facility] CTX-M ESBL (PCR) NOT APPLICABLE NOT DETECTE [facility] Enterobacter cloacae complex (PCR) Not detected NOT DETECTE [facility] Enterobacterales (PCR) Not detected NOT DETECTE [facility] Enterococcus faecalis PCR Not detected NOT DETECTE [facility] Enterococcus faecium PCR Not detected NOT DETEC [facility] Escherichia coli Result Not detected NOT DETECT E [facility] Haemophilus influenzae DNA Not detected NOT DETECTE [facility] IMP (blaIMP) Carbap Res Gene (PCR) NOT APPLICABLE NOT DETECTE [facility] Klebsiella aerogenes (PCR) Not detected NOT DETECTE [facility] Klebsiella oxytoca (PCR) Not detected NOT DETEC [facility] Klebsiella pneumoniae group (PCR) Not detected NOT DETECTE [facility] KPC (blaKPC) Detection (PCR) NOT APPLICABLE NOT DETECTE [facility] Listeria monocytogenes (PCR) Not detected NOT DETECTE [facility] MCR-1 Resistance Gene NOT APPLICABLE NOT DETECT E [facility] mecA/C & MREJ Antimicrob Resist Gen NOT APPLICABLE NOT DETECTE [facility] mecA/C-Methicillin Resistance Gene NOT APPLICABLE NOT DETECTE [facility] NDM (blaNDM) Detection (PCR) NOT APPLICABLE NOT DETECTE [facility] Neisseria meningitidis (PCR) Not detected NOT DETECTE [facility] Proteus species (PCR) Not detected NOT DETECTE [facility] Pseudomonas aeruginosa (PCR) Not detected NOT DETECTE [facility] Salmonella spp. (PCR) Not detected NOT DETECTE [facility] Serratia marcescens (PCR) Not detected NOT DETECTE [facility] Staphylococcus aureus (PCR)(LAB) Not detected NOT DETECTE [facility] Staphylococcus epidermidis (PCR) Not detected NOT DETECTE [facility] Staphylococcus lugdunensis (TEM-PCR Not detected NOT DETECTE [facility] Staphylococcus species (PCR) Not detected NOT DETECTE [facility] Stenotroph. maltophilia (PCR) Not detected NOT DETECTE [facility] Streptococcus pneumoniae (PCR) Not detected NOT DETECTE [facility] Streptococcus pyogenes (PCR)(LAB) Not detected NOT DETECTE [facility] Streptococcus species (PCR) Not detected NOT DETECTE [facility] Syn OXA-48-like Carb Res Gene (PCR) NOT APPLICABLE NOT DETECTE [facility] Regina/B-Vancomycin Resistance Genes NOT APPLICABLE NOT DETECTE [facility] VIM (blaVIM) Carbap Res Gene (PCR) NOT APPLICABLE NOT DETECTE [facility] Eosinophils # (Auto) 0.1 10 3/uL 0.0-0.7 [facility] Immature Granulocyte # (Auto) 0.06 10 3/uL 0.00-0.03 [facility] No Panel InformationOrdered By: Dion Griggs on 05-24-2023 Blood Culture 2 [facility] Blood Culture 1 [facility] Platelet mean volume Auto (B ld) [Entitic vol]on 05-24-2023 Platelet mean volume (Bld) [Entitic vol] 8.8 fL 9.5-13.5 [facility] Platelets Auto (Bld) [#/Vol] on 05-24-2023 Platelets (Bld) [#/Vol] 244 10 3/uL 150-450 [facility] Protein Auto test strip (U) [Mass/Vol]on 05-24-2023 Protein (U) [Mass/Vol] 30 mg/dL NEG/TRACE Fi [facility] RBC Auto (Bld) [#/Vol]on RBC (Bld) [#/Vol] 4.73 10 6/uL 4.70-6.10 [facility] Serum or plasma albumin/glob ulin mass ratioon 05-24-2023 Albumin/Globulin [Mass ratio] 0.9 {ratio} [facility] Serum or plasma anion gap de terminationon 05-24-2023 Anion gap [Moles/Vol] 15.1 mmol/L Fi [facility] Specific gravity Auto test s trip (U) [Rel density]on 05-24-2023 Specific gravity (U) [Rel density] CLEAR CLEAR [facility] Urine bacteria detection by automated methodon 05-24-2023 Bacteria Auto Ql (U) SMALL #/HPF NONE SEEN [facility] Urine glucose measurement by test strip (mass/volume)on 05-24-2023 Glucose Test strip (U) [Mass/Vol] >=1000 mg/dL NEGATIVE [facility] Urine hemoglobin detection b y automated test stripon 05-24-2023 Hemoglobin Auto test strip Ql (U) LARGE NEGATIVE [facility] Urine nitrite detection by a utomated test stripon 05-24-2023 Nitrite Auto test strip Ql (U) TRACE NEGATIVE [facility] Nitrite Auto test strip Ql (U) Negative NEGATIVE [facility] Urine sediment crystal ident ification by light microscopyon 05-24-2023 Crystals LM Nom (Urine sed) None Seen #/HPF None Seen [facility] Urine sediment leukocyte cou nt by microscopy (number/high power field)on 05-24-2023 WBC LM.HPF (Urine sed) [#/Area] 5-10 #/HPF NONE SEEN [facility] Urobilinogen Auto test strip (U) [Mass/Vol]on 05-24-2023 Urobilinogen Qn (U) 0.2 {Raeann'U}/dL 0.2-1.0 [facility] pH Auto test strip (U)on pH (U) 5.5 [pH] 5.0-9.0 [facility] Automated epithelial cells c ount in urine sediment (number/area)on 05-20-2023 Epithelial cells Auto (Urine sed) [#/Area] NONE SEEN #/LPF NONE/RARE [facility] Automated leukocytes count i n urine sediment (number/area)on 05-20-2023 WBC Auto (Urine sed) [#/Area] 5-10 #/HPF 0-2 [facility] Automated urine specific gra vity by refractometryon 05-20-2023 Specific gravity Refractometry automated (U) [Rel density] 1.025 1.005-1.025 [facility] Basophils Auto (Bld) [#/Vol] on 05-20-2023 Basophils (Bld) [#/Vol] 0.1 10 3/uL 0.0-0.1 [facility] Basophils/100 WBC Auto (Bld) on 05-20-2023 Basophils/100 WBC (Bld) 0.6 % 0.2-2.0 F [facility] Bilirubin Auto test strip (U ) [Mass/Vol]on 05-20-2023 Bilirubin (U) [Mass/Vol] Negative NEGATIVE [facility] Casts typing in urine sedime nt by light microscopyon 05-20-2023 Casts LM Nom (Urine sed) NONE SEEN #/LPF NONE S EEN [facility] Color Auto (U)on 05-20-2023 Color (U) YELLOW YELLOW [facility] Eosinophils/100 WBC Auto (Bl d)on 05-20-2023 Eosinophils/100 WBC (Bld) 0.9 % 0.9-7.0 [facility] Erythrocyte distribution wid th Auto (RBC) [Ratio]on 05-20-2023 Erythrocyte distribution width (RBC) [Ratio] 13.2 % 11.0-15.0 [facility] Estimated glomerular filtrat ion rate (GFR) non- Americanon 05-20-2023 GFR/1.73 sq M.predicted among non-blacks MDRD (S/P/Bld) [Vol rate/Area] mL/min/{1.73_m2} >=60 [facility] Globulin Calc (S) [Mass/Vol] on 05-20-2023 Globulin (S) [Mass/Vol] 3.7 g/dL F [facility] Hematocrit Auto (Bld) [Volum e fraction]on 05-20-2023 Hematocrit (Bld) [Volume fraction] 42.2 % 42.0-54.0 [facility] Hemoglobin [Mass/volume] in Bloodon 05-20-2023 Hemoglobin (Bld) [Mass/Vol] 14.2 g/dL 14.0-18.0 [facility] Ketones Auto test strip (U) [Mass/Vol]on 05-20-2023 Ketones (U) [Mass/Vol] TRACE mg/dL NEGATIVE F [facility] Laboratory - Chemistry and C hemistry - challengeon 05-20-2023 Albumin [Mass/Vol] 3.8 g/dL 3.4-5.0 [facility] ALP [Catalytic activity/Vol] 55 U/L 46-116 [facility] ALT [Catalytic activity/Vol] 35 U/L 16-63 [facility] AST [Catalytic activity/Vol] 17 U/L 15-37 [facility] Bilirubin [Mass/Vol] 0.6 mg/dL 0.2-1.[address] [facility] Calcium [Mass/Vol] 8.6 mg/dL 8.5-10.1 [facility] Chloride [Moles/Vol] 101 mmol/L 98-[address] [facility] CO2 [Moles/Vol] 25.2 mmol/L 21.0-32.0 [facility] Creatinine [Mass/Vol] 1.02 mg/dL 0.70-1.30 [facility] GFR/1.73 sq M.predicted MDRD (S/P/Bld) [Vol rate/Area] mL/min/{1.73_m2} >=60 [facility] Glucose [Mass/Vol] 228 mg/dL 74-106 [facility] Lactate [Moles/Vol] 2.1 mmol/L 0.4-2.0 [facility] Lipase [Catalytic activity/Vol] 73.0 U/L 16.0-77.0 [facility] Potassium [Moles/Vol] 3.9 mmol/L 3.5-5.1 [facility] Protein [Mass/Vol] 7.5 g/dL 6.4-8.2 [facility] Sodium [Moles/Vol] 137 mmol/L 136-145 [facility] Urea nitrogen [Mass/Vol] 15.0 mg/dL 7.0-18.0 [facility] Urea nitrogen/Creatinine [Mass ratio] 14.7 mg/mg [facility] Laboratory - Hematology and Cell countson 05-20-2023 Immature granulocytes/100 WBC (Bld) 0.6 % 0.0-0.5 [facility] Laboratory - Microbiology an d Antimicrobial susceptibilityOrdered By: Dion Griggs on 05-20-2023 Bacteria identified Cx Nom (U) [facility] Leukocytes [#/volume] correc bethany for nucleated erythrocytes in Blood by Automated counon 05-20-2023 WBC corrected for nucl RBC Auto (Bld) [#/Vol] 9.9 10 3/uL 4.0-11.0 [facility] Lymphocytes Auto (Bld) [#/Vo l]on 05-20-2023 Lymphocytes (Bld) [#/Vol] 0.9 10 3/uL 1.2-3.8 [facility] Lymphocytes/100 WBC Auto (Bl d)on 05-20-2023 Lymphocytes/100 WBC (Bld) 9.1 % 20.5-60.0 [facility] MCH Auto (RBC) [Entitic mass ]on 05-20-2023 MCH (RBC) [Entitic mass] 29.2 pg 25.9-34.0 [facility] MCHC Auto (RBC) [Mass/Vol]on 05-20-2023 MCHC (RBC) [Mass/Vol] 33.6 g/dL 29.9-35.2 [facility] MCV Auto (RBC) [Entitic vol] on 05-20-2023 MCV (RBC) [Entitic vol] 86.8 fL 80.0-94.0 F [facility] Monocytes Auto (Bld) [#/Vol] on 05-20-2023 Monocytes (Bld) [#/Vol] 0.9 10 3/uL 0.3-0.8 [facility] Monocytes/100 WBC Auto (Bld) on 05-20-2023 Monocytes/100 WBC (Bld) 9.1 % 1.7-12.0 F [facility] Mucus LM Ql (Urine sed)on Mucus Ql (Urine sed) NONE SEEN NONE SEEN [facility] Neutrophils Auto (Bld) [#/Vo l]on 05-20-2023 Neutrophils (Bld) [#/Vol] 7.9 10 3/uL 1.4-6.5 [facility] Neutrophils/100 WBC Auto (Bl d)on 05-20-2023 Neutrophils/100 WBC (Bld) 79.7 % 43.0-75.0 [facility] No Panel InformationOrdered By: Dion Griggs on 05-20-2023 Blood Culture 2 [facility] Blood Culture 1 [facility] No Panel Informationon 05-19 Eosinophils # (Auto) 0.1 10 3/uL 0.0-0.7 [facility] Immature Granulocyte # (Auto) 0.06 10 3/uL 0.00-0.03 [facility] Urine Culture Reflexed YES [facility] Urine Microscopic Review YES [facility] Platelet mean volume Auto (B ld) [Entitic vol]on 05-20-2023 Platelet mean volume (Bld) [Entitic vol] 8.5 fL 9.5-13.5 [facility] Platelets Auto (Bld) [#/Vol] on 05-20-2023 Platelets (Bld) [#/Vol] 276 10 3/uL 150-450 [facility] Protein Auto test strip (U) [Mass/Vol]on 05-20-2023 Protein (U) [Mass/Vol] 30 mg/dL NEG/TRACE [facility] RBC Auto (Bld) [#/Vol]on RBC (Bld) [#/Vol] 4.86 10 6/uL 4.70-6.10 [facility] Serum or plasma albumin/glob ulin mass ratioon 05-20-2023 Albumin/Globulin [Mass ratio] 1.0 {ratio} [facility] Serum or plasma anion gap de terminationon 05-20-2023 Anion gap [Moles/Vol] 14.7 mmol/L [facility] Specific gravity Auto test s trip (U) [Rel density]on 05-20-2023 Specific gravity (U) [Rel density] CLEAR CLEAR [facility] Urine bacteria detection by automated methodon 05-20-2023 Bacteria Auto Ql (U) MODERATE #/HPF NONE SEEN [facility] Urine glucose measurement by test strip (mass/volume)on 05-20-2023 Glucose Test strip (U) [Mass/Vol] >=1000 mg/dL NEGATIVE [facility] Urine hemoglobin detection b y automated test stripon 05-20-2023 Hemoglobin Auto test strip Ql (U) LARGE NEGATIVE [facility] Urine nitrite detection by a utomated test stripon 05-20-2023 Nitrite Auto test strip Ql (U) TRACE NEGATIVE [facility] Nitrite Auto test strip Ql (U) Positive NEGATIVE [facility] Urine sediment crystal ident ification by light microscopyon 05-20-2023 Crystals LM Nom (Urine sed) None Seen #/HPF None Seen [facility] Urine sediment leukocyte cou nt by microscopy (number/high power field)on 05-20-2023 WBC LM.HPF (Urine sed) [#/Area] 5-10 #/HPF NONE SEEN [facility] Urobilinogen Auto test strip (U) [Mass/Vol]on 05-20-2023 Urobilinogen Qn (U) 0.2 {Raeann'U}/dL 0.2-1.0 [facility] pH Auto test strip (U)on pH (U) 5.5 [pH] 5.0-9.0 [facility] ED Note-Physicianon 05-09-19 ED Note-Physician [id number] #1.00TIFF Normal [facility] Automated epithelial cells c ount in urine sediment (number/area)on 05-04-2023 Epithelial cells Auto (Urine sed) [#/Area] FEW #/LPF NONE/RARE [facility] Automated leukocytes count i n urine sediment (number/area)on 05-04-2023 WBC Auto (Urine sed) [#/Area] 5-10 #/HPF 0-2 [facility] Automated urine sediment negra cium oxalate crystal count by microscopy (number/high powon 05-04-2023 Calcium oxalate crystals LM.HPF (Urine sed) [#/Area] RARE [facility] Automated urine specific gra vity by refractometryon 05-04-2023 Specific gravity Refractometry automated (U) [Rel density] 1.025 1.005-1.025 [facility] Bilirubin Auto test strip (U ) [Mass/Vol]on 05-04-2023 Bilirubin (U) [Mass/Vol] Negative NEGATIVE [facility] Casts typing in urine sedime nt by light microscopyon 05-04-2023 Casts LM Nom (Urine sed) NONE SEEN #/LPF NONE S EEN [facility] Color Auto (U)on 05-04-2023 Color (U) LT. YELLOW YELLOW [facility] Ketones Auto test strip (U) [Mass/Vol]on 05-04-2023 Ketones (U) [Mass/Vol] TRACE mg/dL NEGATIVE F [facility] Mucus LM Ql (Urine sed)on Mucus Ql (Urine sed) NONE SEEN NONE SEEN [facility] Protein Auto test strip (U) [Mass/Vol]on 05-04-2023 Protein (U) [Mass/Vol] 30 mg/dL NEG/TRACE [facility] Specific gravity Auto test s trip (U) [Rel density]on 05-04-2023 Specific gravity (U) [Rel density] CLEAR CLEAR [facility] Urine bacteria detection by automated methodon 05-04-2023 Bacteria Auto Ql (U) MODERATE #/HPF NONE SEEN [facility] Urine glucose measurement by test strip (mass/volume)on 05-04-2023 Glucose Test strip (U) [Mass/Vol] 100 mg/dL NEGATIVE [facility] Urine hemoglobin detection b y automated test stripon 05-04-2023 Hemoglobin Auto test strip Ql (U) LARGE NEGATIVE [facility] Urine nitrite detection by a utomated test stripon 05-04-2023 Nitrite Auto test strip Ql (U) LARGE NEGATIVE [facility] Nitrite Auto test strip Ql (U) Positive NEGATIVE [facility] Urine sediment crystal ident ification by light microscopyon 05-04-2023 Crystals LM Nom (Urine sed) Seen #/HPF None Seen [facility] Urine sediment leukocyte cou nt by microscopy (number/high power field)on 05-04-2023 WBC LM.HPF (Urine sed) [#/Area] 20-50 #/HPF NONE SEEN [facility] Urobilinogen Auto test strip (U) [Mass/Vol]on 05-04-2023 Urobilinogen Qn (U) 0.2 {Raeann'U}/dL 0.2-1.0 [facility] pH Auto test strip (U)on pH (U) 5.5 [pH] 5.0-9.0 [facility] Operative Reporton Operative Report [id number] 8#1.00TIFF Normal [facility] Screenson 04-29-2023 Screens [id number] 9#1.00TIFF Normal [facility] Screens [id number] 1#1.00TIFF Normal [facility] Ambulatory Visit Summaryon 0 04-28-2023 Ambulatory Visit [...] Contact prescribing physician if questions or concerns amlodipine-benazepri l (amLODIPine-benazepr il 5 mg-20 mg Cap) aspirin (aspirin 81 [...] urodynamics Where: [address], [place] [address] [phone] Medications What How Much When Instructions Unchanged amlodipine-benazepri l (amLODIPine-benazepr il 5 mg-20 mg Cap) Contact prescribing physician [...] or d (more content not included)... [facility] Patient Educationon 04-28- 24 Patient Education Urology [...] including vitamins, herbs, eye drops, creams, and quhz-dld-wlabjuh medicines. ? Whether you are or may [...] results be (more content not included)... [facility] Urology Office/Clinic Noteon 04-28-2023 Urology Office/Clinic Note [...] CIC BID and then daily -Schedule urodynamics. Risks/benefits/detai ls discussed. 2. BPH with urinary obstruction (N40.1: [...] prostate) P (more content not included)... [facility] Comment on above: Result Comment: Elec tronically Signed By: Paulino GAVIN, Sara Loza\.br\Date and Time Signed: 04/28/23 11:12 EST\.br\Electronically Co-Signed By: Deborah Torres\.br\Date and Time Co-Signed: 04/28/23 10:44 EST Operative Reporton Operative Report [id number] 5#1.00TIFF [facility] Consent for Procedure/Surger yon 03-18-2023 Consent for Procedure/Surgery [id number] #1.00TIFF [facility] Screenson 02-03-2023 Screens [id number] #1.00TIFF [facility] Screens [id number] #1.00TIFF [facility] Ambulatory Visit Summaryon 1 04-05-2022 Ambulatory Visit Summary JOSEPH ESCALONA Nikita :1945 Visit Date:02/02/2023 Ambulatory Visit Instructions Your Diagnosis BPH with urinary obstruction Incomplete bladder emptying Screening PSA (prostate specific antigen) Asymptomatic microscopic hematuria Simple renal cyst Tests Performed Urnls Dip Stick Auto w/o Microscopy POC 14373 Your Care Team Attending Physician - ANGELI GUY PA-C Primary Care Physician - DION GRIGGS DO This Is Your Medications List Contact prescribing physician if questions or concerns amlodipine-benazepri l (amLODIPine-benazepr il 5 mg-20 mg Cap) aspirin (aspirin 81 [...] Schedule the Following Appointments Follow Up with ANGELI GUY PA-C, URL When: Comments: sched cysto/TRUS Where: [address] [place] [address] [phone] Medications What How Much When Instructions Unchanged amlodipine-benazepri l (amLODIPine-benazepr il 5 mg-20 mg Cap) Contact prescribing physician [...] Urnls Dip Stick Auto w/o Microscopy POC 77108 (02/02/2023) Bilirubin Urine Dipstick - Negative Blood Urine Dipstick - Trace-intact Glucose Urine Dipstick - 2+ 500 mg/dl Ketones Urine Dipstick - Negative Leukocytes Urine Dipstick - Negative Nitrite Urine Dipstick - Negative Protein Urine Dipstick - Negative Specific [place] Urine Dipstick - 1.025 Urine Appearance Urine [...] when yo (more content not included)... Normal [facility] Urology Office/Clinic Noteon 02-02-2023 Urology Office/Clinic Note [...] Contact Information BROOKS ANTHONY, ANGELI Montiel, URL [address] [place] [address] [phone] Additional Instructions: sched cysto/TRUS Patient Education Cystoscopy [...] Cystoscopy (03/18/2020), Appendectomy, Colonoscopy, Knee replacement. Medications amLODIPine-benazepri l 5 mg-20 mg Cap aspirin 81 mg oral (more content not included)... [facility] Comment on above: Result Comment: Elec tronically Signed By: ANGELI GUY PA-C\.br\Date and Time Signed: 02/02/23 15:07 EST\.br\Electronically Co-Signed By: Deborah Torres\.br\Date and Time Co-Signed: 02/02/23 14:51 EST A1C HEMOGLOBINon 12-15-2022 HbA1c (Bld) [Mass fraction] 7.0 % [employer] Other Glucose - FINGER STICKon Glucose [Mass/Vol] 119 mg/dL [employer] Other HbA1c (Bld) [Mass fraction]o n 12-15-2022 A1C HEMOGLOBIN [employer] Other Office Visit (Cardiology)on 06-30-2022 Follow-up visit Diagnoses/Problems [...] in adult Healthy Weight Tips; Status:Complete; Done: [id number] Some eating tips that can help you lose weight.; Status:Complete; Done: [id number] Essential hypertension, benign Start: amLODIPine Besylate 5 [...] 3. Diabetes, managed by diabetes clinic at [facility], recent A1c 7.2 4. Obesity. Encouraged [...] point out cardiac cause. Jaleesa Conn MD, [facility] Surgical History Problems History of Appendectomy History of Complete colonoscopy Managed By: Jluis Stokes MD (Gastroenterology) History of Knee arthroscopy Past Medical History Problems History of COVID-19 virus infection (079.89) (U07.1) Resolved Date: 30 Jun 2022 Current Meds Medication NameInstruction Aspirin EC 81 MG Oral Tablet Delayed ReleaseTAKE 1 TABLET EVERY OTHER DAY Pj RojoPen 100 UNIT/ML Subcutaneous Solution Pen-injector Finasteride 5 [...] Recorded: 30Jun2022 11:20AM Heart Rate96, L Radial Vhosaqdn962, LUE, Sitting Squjckphf00, LUE, Sitting Height5 ft 6 in Vkinih777 lb BMI Xejpxwmnou55.77 kg/m2 BSA Calculated2.01 Tobacco Useb) No PHQ-2 #1. Over the last 2 weeks have you felt down, depressed or hopeless? (If yes, answer PHQ-9 below)No PHQ-2 #2. Over the last 2 weeks have you felt little interest or pleasure (more content not included)... Normal [employer] Tobacco Screening.on 023 Adult depression screening assessment No [facility] 250 DO Work Phone: Fall risk assessment a) No falls within the last year [facility] 250 DO Work Phone: Tobacco use status CP b) No M P[facility] 250 DO Work Phone: A1C HEMOGLOBINon 06-15-2022 HbA1c (Bld) [Mass fraction] 7.1 % [employer] Other Glucose - FINGER STICKon Glucose [Mass/Vol] 133 mg/dL [employer] Other HbA1c (Bld) [Mass fraction]o n 06-15-2022 A1C HEMOGLOBIN [employer] Other LIPID PROFILEon 06-10-2022 CHOL-HDL RATIO NORM SEE BELOW Normal [facility] Comment on above: Result Comment: 3.3 - 4.4 LOW RISK 4.4 - 7.1 AVERAGE RISK 7.1 - 11.0 MODERATE RISK >11.0 HIGH RISK Performed By: #### C MP, LIPID #### [facility] [address] [place] [address] Dr. Kim Roper Cholesterol [Mass/Vol] 132 mg/dL Normal <=200 [facility] Comment on above: Performed By: #### C MP, LIPID #### [facility] [address] [place] [address] Dr. Kim Roper Cholesterol in HDL [Mass/Vol] 47 mg/dL Normal 40-60 [facility] Comment on above: Performed By: #### C MP, LIPID #### [facility] [address] [address] [address] Kim Roper Cholesterol in LDL [Mass/Vol] 63.2 mg/dL Normal [facility] Comment on above: Performed By: #### C MP, LIPID #### [facility] [address] [address] [address] Kim Roper Cholesterol.total/Choles terol in HDL [Mass ratio] 2.8 {ratio} Normal [facility] Comment on above: Performed By: #### C MP, LIPID #### [facility] [address] [address] [address] Kim Roper HDL NORMAL > or = 60 mg/dl - LOW CARDIOVASCULAR RISK <40 mg/dl - HIGH CARDIOVASCULAR RISK Normal [facility] Comment on above: Performed By: #### C MP, LIPID #### [facility] [address] [address] [address] Kim Roper LDL CALC NORMAL SEE BELOW Normal [facility] Comment on above: Result Comment: <100 mg/dl OPTIMAL 100 - 129 mg/dl NEAR OR ABOVE OPTIMAL 130 - 159 mg/dl BORDERLINE HIGH 160 - 189 mg/dl HIGH >190 mg/dl VERY HIGH Performed By: #### C MP, LIPID #### [facility] [address] [address] [address] Kim Roper Triglyceride [Mass/Vol] 109 mg/dL Normal <=150 [facility] Comment on above: Performed By: #### C MP, LIPID #### [facility] [address] [address] [address] Kim Roper VLDL CALC 21.8 mg/dL Normal [facility] Comment on above: Performed By: #### C MP, LIPID #### [facility] [address] [address] [address] Kim Roper MICROALB CREAT RATIO RANDOMo n 06-10-2022 mALB <1.3 Normal <=30.0 [facility] Comment on above: Performed By: #### M CRR #### [facility] [address] [address] [address] Kim Roper URINE CREAT 109.64 mg/dL Normal 20.00-300.0 0 [facility] Comment on above: Performed By: #### M CRR #### [facility] [address] [address] [address] Kim Roper PROF 14(COMP METB)on 023 Albumin [Mass/Vol] 3.7 g/dL Normal 3.4-5.0 [facility] Comment on above: Performed By: #### C MP, LIPID #### [facility] [address] [place] [address] Dr. Kim Roper Albumin/Globulin [Mass ratio] 1.0 {ratio} Normal [facility] Comment on above: Performed By: #### C MP, LIPID #### [facility] [address] [place] [address] Dr. Kim Roper ALP [Catalytic activity/Vol] 47 U/L Normal 46-116 [facility] Comment on above: Performed By: #### C MP, LIPID #### [facility] [address] [place] [address] Dr. Kim Roper ALT [Catalytic activity/Vol] 40 U/L Normal 16-63 [facility] Comment on above: Performed By: #### C MP, LIPID #### [facility] [address] [place] [address] Dr. Kim Roper Anion gap [Moles/Vol] 11.4 mmol/L Normal [facility] Comment on above: Performed By: #### C MP, LIPID #### [facility] [address] [place] [address] Dr. Kim Roper AST [Catalytic activity/Vol] 21 U/L Normal 15-37 [facility] Comment on above: Performed By: #### C MP, LIPID #### [facility] [address] [place] [address] Dr. Kim Roper Bilirubin [Mass/Vol] 0.5 mg/dL Normal 0.2-1.0 [facility] Comment on above: Performed By: #### C MP, LIPID #### [facility] [address] [place] [address] Dr. Kim Roper Calcium [Mass/Vol] 8.9 mg/dL Normal 8.5-10.1 [facility] Comment on above: Performed By: #### C MP, LIPID #### [facility] [address] [place] [address] Dr. Kim Roper Chloride [Moles/Vol] 105 mmol/L Normal 98-107 [facility] Comment on above: Performed By: #### C MP, LIPID #### [facility] [address] [place] [address] Dr. Kim Roper CO2 [Moles/Vol] 29.3 mmol/L Normal 21.0-32.0 [facility] Comment on above: Performed By: #### C MP, LIPID #### [facility] [address] [place] [address] Dr. Kim Roper Creatinine [Mass/Vol] 0.88 mg/dL Normal 0.70-1.30 [facility] Comment on above: Performed By: #### C MP, LIPID #### [facility] [address] [address] [address] Kim Roper EGFR-AF BURKINAN >60 Normal >=60 [facility] Comment on above: Performed By: #### C MP, LIPID #### [facility] [address] [place] [address] Dr. Kim Roper EGFR-NON AF BURKINAN >60 Normal >=60 [facility] Comment on above: Performed By: #### C MP, LIPID #### [facility] [address] [place] [address] Dr. Kim Roper Globulin (S) [Mass/Vol] 3.6 g/dL Normal [facility] Comment on above: Performed By: #### C MP, LIPID #### [facility] [address] [address] [address] Kim Roper Glucose [Mass/Vol] 160 mg/dL Critically high 74-106 [facility] Comment on above: Performed By: #### C MP, LIPID #### [facility] [address] [place] [address] Dr. Kim Roper Potassium [Moles/Vol] 4.7 mmol/L Normal 3.5-5.1 [facility] Comment on above: Performed By: #### C MP, LIPID #### [facility] [address] [place] [address] Dr. Kim Roper Protein [Mass/Vol] 7.3 g/dL Normal 6.4-8.2 [facility] Comment on above: Performed By: #### C MP, LIPID #### [facility] [address] [address] [address] Kim Roper Sodium [Moles/Vol] 141 mmol/L Normal 136-145 [facility] Comment on above: Performed By: #### C MP, LIPID #### [facility] [address] [address] [address] Kim Roper Urea nitrogen [Mass/Vol] 11.0 mg/dL Normal 7.0-18.0 [facility] Comment on above: Performed By: #### C MP, LIPID #### [facility] [address] [address] [address] Kim Roper Urea nitrogen/Creatinine [Mass ratio] 12.5 mg/mg Normal [facility] Comment on above: Performed By: #### C MP, LIPID #### [facility] [address] [place] [address] Dr. Kim Roper VITAMIN B12on 06-10-2022 Cobalamin (Vitamin B12) [Mass/Vol] 281.0 pg/mL Normal 193.0-986.0 [facility] Comment on above: Performed By: #### V ITB12 #### [facility] [address] [place] [address] Dr. Kim Roper LIPID PROFILEon 06-20-2021 CHOL-HDL RATIO NORM SEE BELOW Normal [facility] Comment on above: Result Comment: 3.3 - 4.4 LOW RISK 4.4 - 7.1 AVERAGE RISK 7.1 - 11.0 MODERATE RISK >11.0 HIGH RISK Performed By: #### L IPID, CMP #### [facility] [address] [place] [address] Dr. Kim Roper Cholesterol [Mass/Vol] 114 mg/dL Normal <=200 [facility] Comment on above: Performed By: #### L IPID, CMP #### [facility] [address] [place] [address] Dr. Kim Roper Cholesterol in HDL [Mass/Vol] 42 mg/dL Normal 40-60 [facility] Comment on above: Performed By: #### L IPID, CMP #### [facility] [address] [place] [address] Dr. Kim Roper Cholesterol in LDL [Mass/Vol] 45.6 mg/dL Normal [facility] Comment on above: Performed By: #### L IPID, CMP #### [facility] [address] [address] [address] Kim Roper Cholesterol.total/Choles terol in HDL [Mass ratio] 2.7 {ratio} Normal [facility] Comment on above: Performed By: #### L IPID, CMP #### [facility] [address] [address] [address] Kim Roper HDL NORMAL > or = 60 mg/dl - LOW CARDIOVASCULAR RISK <40 mg/dl - HIGH CARDIOVASCULAR RISK Normal [facility] Comment on above: Performed By: #### L IPID, CMP #### [facility] [address] [address] [address] Kim Roper LDL CALC NORMAL SEE BELOW Normal [facility] Comment on above: Result Comment: <100 mg/dl OPTIMAL 100 - 129 mg/dl NEAR OR ABOVE OPTIMAL 130 - 159 mg/dl BORDERLINE HIGH 160 - 189 mg/dl HIGH >190 mg/dl VERY HIGH Performed By: #### L IPID, CMP #### [facility] [address] [address] [address] Kim Roper Triglyceride [Mass/Vol] 132 mg/dL Normal <=150 [facility] Comment on above: Performed By: #### L IPID, CMP #### [facility] [address] [address] [address] Kim Roper VLDL CALC 26.4 mg/dL Normal [facility] Comment on above: Performed By: #### L IPID, CMP #### [facility] [address] [address] [address] Kim Roper MICROALB CREAT RATIO RANDOMo n 06-20-2021 mALB <1.3 Normal <=30.0 [facility] Comment on above: Performed By: #### M CRR #### [facility] [address] [address] [address] Kim Roper URINE CREAT 126.66 mg/dL Normal 20.00-300.0 0 [facility] Comment on above: Performed By: #### M CRR #### [facility] [address] [address] [address] Kim Roper PROF 14(COMP METB)on 022 Albumin [Mass/Vol] 3.9 g/dL Normal 3.4-5.0 [facility] Comment on above: Performed By: #### L IPID, CMP #### [facility] [address] [address] [address] Kim Roper Albumin/Globulin [Mass ratio] 1.2 {ratio} Normal [facility] Comment on above: Performed By: #### L IPID, CMP #### [facility] [address] [address] [address] Kim Roper ALP [Catalytic activity/Vol] 46 U/L Normal 46-116 [facility] Comment on above: Performed By: #### L IPID, CMP #### [facility] [address] [place] [address] Dr. Kim Roper ALT [Catalytic activity/Vol] 32 U/L Normal 16-63 [facility] Comment on above: Performed By: #### L IPID, CMP #### [facility] [address] [place] [address] Dr. Kim Roper Anion gap [Moles/Vol] 10.9 mmol/L Normal [facility] Comment on above: Performed By: #### L IPID, CMP #### [facility] [address] [place] [address] Dr. Kim Roper AST [Catalytic activity/Vol] 17 U/L Normal 15-37 [facility] Comment on above: Performed By: #### L IPID, CMP #### [facility] [address] [address] [address] Kim oRper Bilirubin [Mass/Vol] 0.6 mg/dL Normal 0.2-1.3 [facility] Comment on above: Performed By: #### L IPID, CMP #### [facility] [address] [address] [address] Kim Roper Calcium [Mass/Vol] 8.7 mg/dL Normal 8.5-10.1 [facility] Comment on above: Performed By: #### L IPID, CMP #### [facility] [address] [address] [address] Kim Roper Chloride [Moles/Vol] 103 mmol/L Normal 98-107 [facility] Comment on above: Performed By: #### L IPID, CMP #### [facility] [address] [address] [address] Kim Roper CO2 [Moles/Vol] 30.4 mmol/L Critically high 22.0-30.0 [facility] Comment on above: Performed By: #### L IPID, CMP #### [facility] [address] [address] [address] Kim Roper Creatinine [Mass/Vol] 0.77 mg/dL Normal 0.66-1.25 [facility] Comment on above: Performed By: #### L IPID, CMP #### [facility] [address] [place] [address] Dr. Kim Roper EGFR-AF BURKINAN >60 Normal >=60 [facility] Comment on above: Performed By: #### L IPID, CMP #### [facility] [address] [place] [address] Dr. Kim Roper EGFR-NON AF BURKINAN >60 Normal >=60 [facility] Comment on above: Performed By: #### L IPID, CMP #### [facility] [address] [place] [address] Dr. Kim Roper Globulin (S) [Mass/Vol] 3.3 g/dL Normal [facility] Comment on above: Performed By: #### L IPID, CMP #### [facility] [address] [place] [address] Dr. Kim Roper Glucose [Mass/Vol] 88 mg/dL Normal 74-106 [facility] Comment on above: Performed By: #### L IPID, CMP #### [facility] [address] [address] [address] Kim Roper Potassium [Moles/Vol] 4.3 mmol/L Normal 3.4-5.0 [facility] Comment on above: Performed By: #### L IPID, CMP #### [facility] [address] [address] [address] Kim Roper Protein [Mass/Vol] 7.2 g/dL Normal 6.1-8.2 [facility] Comment on above: Performed By: #### L IPID, CMP #### [facility] [address] [place] [address] Dr. Kim Roper Sodium [Moles/Vol] 140 mmol/L Normal 137-145 [facility] Comment on above: Performed By: #### L IPID, CMP #### [facility] [address] [place] [address] Dr. Kim Roper Urea nitrogen [Mass/Vol] 15.0 mg/dL Normal 7.0-18.0 [facility] Comment on above: Performed By: #### L IPID, CMP #### [facility] [address] [place] [address] Dr. Kim Roper Urea nitrogen/Creatinine [Mass ratio] 19.5 mg/mg Normal [facility] Comment on above: Performed By: #### L IPID, CMP #### [facility] [address] [place] [address] Dr. Kim Roper VITAMIN B12on 06-20-2021 Cobalamin (Vitamin B12) [Mass/Vol] 430.0 pg/mL Normal 239.0-931.0 [facility] Comment on above: Performed By: #### V ITB12 #### [facility] [address] [place] [address] Dr. Kim Roper Tobacco Screening.on 021 Fall risk assessment a) No falls within the last year -[facility] 250 DO Work Phone: Tobacco use status CP b) No M [facility] 250 DO Work Phone: GLUCOSE, FINGERSTICK-IN OFFI CEon 03-20-2020 Glucose [Mass/Vol] 155 mg/dL High 80-116 [facility] [employer] [facility] Comment on above: Performed By: #### T ROP I #### [facility] [address], [place], BASIC METABOLIC PANELon 03-01 Anion gap [Moles/Vol] 14 mmol/L High 5-13 [facility] Comment on above: Performed By: #### Dinesh THAPA CH8 #### [facility] [address], [place], Calcium [Mass/Vol] 8.3 mg/dL Low 8.4-10.4 [facility] Comment on above: Performed By: #### Dinesh THAPA CH8 #### [facility] [address], [place], Chloride [Moles/Vol] 101 mmol/L Normal 97-111 [facility] Comment on above: Performed By: #### Dinesh THAPA CH8 #### [facility] [address] [place] [address], CO2 [Moles/Vol] 24 mmol/L Normal 21-30 [facility] Comment on above: Performed By: #### DESI DALE #### [facility] [address] [place] [address], Creatinine [Mass/Vol] 0.73 mg/dL Low 0.80-1.30 [facility] Comment on above: Performed By: #### Dinesh THAPA CH8 #### [facility] [address] [place] [address], GFR/1.73 sq M.predicted MDRD (S/P/Bld) [Vol rate/Area] 91 mL/min/1.73sqm Normal >=60 [facility] Comment on above: Performed By: #### DESI DALE #### [facility] [address], [place], Glucose [Mass/Vol] 221 mg/dL High 80-116 [facility] Comment on above: Performed By: #### Dinesh THAPA CH8 #### [facility] [address] [place] [address], Potassium [Moles/Vol] 4.0 mmol/L Normal 3.3-5.3 [facility] Comment on above: Performed By: #### Dinesh THAPA CH8 #### [facility] [address] [place] [address], Sodium [Moles/Vol] 135 mmol/L Normal 135-148 [facility] Comment on above: Performed By: #### E RENATO THAPA8 #### [facility] [address] [place] [address], Urea nitrogen [Mass/Vol] 8 mg/dL Normal 8-22 [facility] Comment on above: Performed By: #### DESI DALE #### [facility] [address] [place] [address], CBC WITH DIFFERENTIALon 03-01 Basophils (Bld) [#/Vol] 0.07 10*3/uL Normal 0.00-0.20 [facility] Comment on above: Performed By: #### T ROP I #### [facility] [address] [place] [address], Basophils/100 WBC (Bld) 0.7 % Normal <=1.9 [facility] Comment on above: Performed By: #### T ROP I #### [facility] [address] [place] [address], Eosinophils (Bld) [#/Vol] 0.02 10*3/uL Normal 0.00-0.70 [facility] Comment on above: Performed By: #### T ROP I #### [facility] [address] [place] [address], Eosinophils/100 WBC (Bld) 0.2 % Normal 0.1-4.0 [facility] Comment on above: Performed By: #### T ROP I #### [facility] [address] [place] [address], Erythrocyte distribution width (RBC) [Ratio] 14.9 % High 11.5-14.5 [facility] Comment on above: Performed By: #### T ROP I #### [facility] [address] [place] [address], Hematocrit (Bld) [Volume fraction] 41.2 % Normal 41.0-53.0 [facility] Comment on above: Performed By: #### T ROP I #### [facility] [address] [place] [address], Hemoglobin (Bld) [Mass/Vol] 14.0 g/dL Normal 13.9-16.3 [facility] Comment on above: Performed By: #### T ROP I #### [facility] [address] [place] [address], Lymphocytes (Bld) [#/Vol] 0.59 10*3/uL Low 1.00-4.80 [facility] Comment on above: Performed By: #### T ROP I #### [facility] [address] [place] [address], Lymphocytes/100 WBC (Bld) 6.1 % Low 24.0-44.0 [facility] Comment on above: Performed By: #### T ROP I #### [facility] [address] [place] [address], MCH (RBC) [Entitic mass] 29.5 pg Normal 26.0-34.0 [facility] Comment on above: Performed By: #### T ROP I #### [facility] [address] [place] [address], MCHC (RBC) [Mass/Vol] 34.1 g/dL Normal 32.0-35.9 [facility] Comment on above: Performed By: #### T ROP I #### [facility] [address] [place] [address], MCV (RBC) [Entitic vol] 87 fL Normal 80-100 [facility] Comment on above: Performed By: #### T ROP I #### [facility] [address] [place] [address], Monocytes (Bld) [#/Vol] 0.61 10*3/uL Normal 0.20-1.00 [facility] Comment on above: Performed By: #### T ROP I #### [facility] [address] [place] [address], Monocytes (Bld) [#/Vol] 18 10*3/uL Normal <=20 [facility] Comment on above: Performed By: #### T ROP I #### [facility] [address] [place] [address], Monocytes/100 WBC (Bld) 6.3 % Normal 2.0-11.0 [facility] Comment on above: Performed By: #### T ROP I #### [facility] [address] [place] [address], Neutrophils (Bld) [#/Vol] 8.39 10*3/uL High 1.50-8.00 [facility] Comment on above: Performed By: #### T ROP I #### [facility] [address] [place] [address], Neutrophils/100 WBC (Bld) 86.7 % High 31.0-76.0 [facility] Comment on above: Performed By: #### T ROP I #### [facility] [address] [place] [address], Nucleated RBC (Bld) [#/Vol] 0.0 10*3/uL Normal [facility] Comment on above: Performed By: #### T ROP I #### [facility] [address] [place] [address], Nucleated RBC (Bld) [#/Vol] 0.00 10*3/uL Normal [facility] Comment on above: Performed By: #### T ROP I #### [facility] [address] [place] [address], Platelet mean volume (Bld) [Entitic vol] 6.4 fL Low 7.5-11.2 [facility] Comment on above: Performed By: #### T ROP I #### [facility] [address] [place] [address], Platelets (Bld) [#/Vol] 221 10*3/uL Normal 150-400 [facility] Comment on above: Performed By: #### T ROP I #### [facility] [address] [place] [address], RBC (Bld) [#/Vol] 4.76 10*6/uL Normal 4.50-5.90 [facility] Comment on above: Performed By: #### T ROP I #### [facility] [address], [place], WBC (Bld) [#/Vol] 9.7 10*3/uL Normal 4.5-11.5 [facility] Comment on above: Performed By: #### T ROP I #### [facility] [address], [place], CT HEAD W/O CONTRASTon 03-19 CT [...] Ethanol [Mass/Vol] mg/dL Normal None Detected [facility] Comment on above: Performed By: #### E DESI THAPA #### [facility] [address], [place], HIV1 HIV2 AGAB SCRNon 2020 HIV AG-AB SCREEN Non-Reactive Normal Non-Reactiv e [facility] Comment on above: Order Comment: HIV Information: ???[place] Rev. code 3701.243(E): This information has been [...] #### h iv1 hiv2 agab scrn #### [facility] [address] [place] [address], LACTIC ACIDon 03-19-2020 Lactate [Moles/Vol] 1.5 mmol/L Normal 0.5-2.0 [facility] Comment on above: Performed By: #### L ACT #### [facility] [address] [place] [address], PARTIAL THROMBOPLASTIN TIMEo n 03-19-2020 aPTT Coag (Bld) [Time] 29 s Normal 25-37 Th [facility] Comment on above: Performed By: #### P T, APTT #### [facility] [address] [place] [address], PROTHROMBIN TIME AND INRon 0 03-19-2020 INR Coag (PPP) [Relative time] 0.96 {INR} Normal 0.90-1.10 [facility] Comment on above: Performed By: #### P T, APTT #### [facility] [address] [place] [address], PT Coag (PPP) [Time] 10.9 s Normal 9.7-12.9 [facility] Comment on above: Performed By: #### P T, APTT #### [facility] [address] [place] [address], TROPONIN Ion 03-19-2020 Troponin I.cardiac [Mass/Vol] ng/mL Normal <0.120 [facility] Comment on above: Result Comment: Rang [...] T ROP I #### [facility] [address] [place] [address], Troponin I.cardiac [Mass/Vol] ng/mL Normal <0.120 [facility] Comment on above: Result Comment: Rang [...] T ROP I #### [facility] [address] [place] [address], Troponin I.cardiac [Mass/Vol] ng/mL Normal <0.120 [facility] Comment on above: Result Comment: Rang [...] T ROP I #### [facility] [address] [place] [address], TYPE AND SCREENon 03-19-2020 ABO and Rh group Nom (Bld) No Previous Results Normal [facility] Comment on above: Performed By: #### T S #### [facility] [address] [place] [address], ABO and Rh group Nom (Bld) A Positive Normal [facility] Comment on above: Performed By: #### T S #### [facility] [address], [place], ABSC INT Negative Normal [facility] Comment on above: Performed By: #### T S #### [facility] [address], [place], [facility] CARDIAC STRESS/REST INJE CTIONon 08-15-2019 [facility] CARDIAC STRESS/REST INJECTION Patient Name: JOSEPH ESCALONA STUDY: MYOCARDIAL PERFUSION STRESS TEST WITH LEXISCAN Performing facility: [facility], [address] [place] [address], [address], [place] [id number] [facility] Provider: Jaleesa Conn MD, [facility] PCP: Dr. Zia GRIGGS Supervising provider: Chinedu Mcgarry MD, [facility] INDICATION: ASCVD DM Hyperlipidemia HISTORY: Gender: M; Age: 74 y/o ; Height: 167.64 cm; Weight: 92.6501663 kg. CAD; Diabetes; HTN; Abnormal EKG; High Cholesterol; Quit smoking years ago. Cardiac catheterization 2009. COMPARISON: Previous nuclear testing completed 2009 at [place]. ACCESSION NUMBER(S): [id number]; [id number]; [id number] ORDERING CLINICIAN: JALEESA CONN TECHNIQUE: ONE DAY [...] Electronically signed by: CLARE FONSECA MD Normal [facility] Vital Signs Date Time Vital Sign Value Performing Clinician Facility 09-06-2023 10:04-0400 Body height 167.64 cm [facility] 09-06-2023 10:04-0400 Body mass index (BMI) [Ratio] 32 kg/m2 [facility] 09-06-2023 10:04-0400 Body weight 89.98 kg [facility] 09-06-2023 10:04-0400 Diastolic blood pressure 76 mm[Hg] [facility] 09-06-2023 10:04-0400 Heart rate 86 /min [facility] 09-06-2023 10:04-0400 Respiratory rate 12 /min [facility] 09-06-2023 10:04-0400 Systolic blood pressure 138 mm[Hg] [facility] 06-30-2023 11:18-0400 Diastolic blood pressure 80 mm[Hg] Jaleesa Conn MD Work Phone: [facility] 06-30-2023 11:18-0400 Systolic blood pressure 136 mm[Hg] Jaleesa Conn MD Work Phone: [facility] 06-30-2023 11:00-0400 Body height 167.6 cm Jaleesa Conn MD Work Phone: [facility] 06-30-2023 11:00-0400 Body mass index (BMI) [Ratio] 32.28 kg/m2 Jaleesa Conn MD Work Phone: [facility] 06-30-2023 11:00-0400 Body weight 90.72 kg Jaleesa Conn MD Work Phone: [facility] 06-30-2023 11:00-0400 Heart rate 76 /min Jaleesa Conn MD Work Phone: [facility] 06-24-2023 13:33-0400 Body height 167.64 cm [facility] 06-24-2023 13:33-0400 Body mass index (BMI) [Ratio] 32.3 kg/m2 [facility] 06-24-2023 13:33-0400 Body weight 90.71 kg [facility] 06-24-2023 13:33-0400 Diastolic blood pressure 71 mm[Hg] [facility] 06-24-2023 13:33-0400 Heart rate 78 /min [facility] 06-24-2023 13:33-0400 Respiratory rate 18 /min [facility] 06-24-2023 13:33-0400 SaO2% (BldA) [Mass fraction] 97 % [facility] 06-24-2023 13:33-0400 Systolic blood pressure 142 mm[Hg] [facility] 05-24-2023 11:56-0400 Body height 167.64 cm [facility] 05-24-2023 11:56-0400 Body mass index (BMI) [Ratio] 32.3 kg/m2 [facility] 05-24-2023 11:56-0400 Body weight 90.71 kg [facility] 05-24-2023 11:56-0400 Diastolic blood pressure 83 mm[Hg] [facility] 05-24-2023 11:56-0400 Heart rate 90 /min [facility] 05-24-2023 11:56-0400 Respiratory rate 16 /min [facility] 05-24-2023 11:56-0400 Systolic blood pressure 172 mm[Hg] [facility] 04-28-2023 10:03-0500 Blood Pressure Location Sara Paulino [facility] 04-28-2023 10:03-0500 Diastolic blood pressure 82 mm[Hg] Sara Lue [facility] 04-28-2023 10:03-0500 Systolic blood pressure 142 mm[Hg] Sara Lue [facility] 03-17-2023 09:00-0500 Body height 167.64 cm Dion Ball Other [facility] 03-17-2023 09:00-0500 Body mass index (BMI) [Ratio] 33.41 kg/m2 Dion Ball Other [facility] Other 03-17-2023 09:00-0500 Body weight 93.9 kg Dion Ball Other [facility] Other 03-17-2023 09:00-0500 Body weight 93.89 kg [facility] 03-17-2023 09:00-0500 Diastolic blood pressure 80 mm[Hg] Dion Ball Other [facility] 03-17-2023 09:00-0500 Respiratory rate 12 /min Dion Ball Other [facility] Other 03-17-2023 09:00-0500 Systolic blood pressure 132 mm[Hg] Dion Ball Other [facility] 02-02-2023 14:05-0500 Blood Pressure Location ANGELI BROOKS [facility] 02-02-2023 14:05-0500 Diastolic blood pressure 74 mm[Hg] ANGELI BROOKS [facility] 02-02-2023 14:05-0500 Heart rate 82 /min ANGELI BROOKS [facility] 02-02-2023 14:05-0500 Respiratory rate 16 /min ANGELI GUY [facility] 02-02-2023 14:05-0500 Systolic blood pressure 132 mm[Hg] ANGELI GUY [facility] 12-15-2022 13:00-0400 Body height 167.64 cm Tondra Mapus Other [employer] Other 12-15-2022 13:00-0400 Body mass index (BMI) [Ratio] 33.23 kg/m2 Tondra Mapus Other [employer] Other 12-15-2022 13:00-0400 Body weight 93.4 kg Tondra Mapus Other [employer] Other 12-15-2022 13:00-0400 Diastolic blood pressure 87 mm[Hg] Tondra Mapus Other [employer] Other 12-15-2022 13:00-0400 Respiratory rate 18 /min Tondra Mapus Other [employer] Other 12-15-2022 13:00-0400 SaO2% (BldA) [Mass fraction] 97 % Tondra Mapus Other [employer] Other 12-15-2022 13:00-0400 Systolic blood pressure 154 mm[Hg] Tondra Mapus Other [employer] Other 09-02-2022 10:30-0400 Body height 167.64 cm Dion Ball Other [employer] Other 09-02-2022 10:30-0400 Body mass index (BMI) [Ratio] 32.89 kg/m2 Dion Ball Other [employer] Other 09-02-2022 10:30-0400 Body weight 92.44 kg Dion Ball Other [employer] Other 09-02-2022 10:30-0400 Diastolic blood pressure 80 mm[Hg] Dion Ball Other [employer] Other 09-02-2022 10:30-0400 Respiratory rate 12 /min Dion Ball Other [employer] Other 09-02-2022 10:30-0400 Systolic blood pressure 130 mm[Hg] Dion Ball Other [employer] Other 08-20-2022 10:45-0400 Body height 167.64 cm Dion Ball Other [employer] Other 08-20-2022 10:45-0400 Body mass index (BMI) [Ratio] 32.47 kg/m2 Dion Ball Other [employer] Other 08-20-2022 10:45-0400 Body weight 91.26 kg Dion Ball Other [employer] Other 08-20-2022 10:45-0400 Diastolic blood pressure 77 mm[Hg] Dion Ball Other [employer] Other 08-20-2022 10:45-0400 Respiratory rate 12 /min Dion Ball Other [employer] Other 08-20-2022 10:45-0400 Systolic blood pressure 150 mm[Hg] Dion Ball Other [facility] Other 08-04-2022 10:02-0400 Blood Pressure Location ANGELILAVINIA GUY [facility] 08-04-2022 10:02-0400 Diastolic blood pressure 78 mm[Hg] ANGELI BROOKS [facility] 08-04-2022 10:02-0400 Heart rate 68 /min ANGELI BROOKS [facility] 08-04-2022 10:02-0400 Respiratory rate 16 /min ANGELI BROOKS [facility] 08-04-2022 10:02-0400 Systolic blood pressure 130 mm[Hg] ANGELI BROOKS [facility] 07-23-2022 11:09-0400 Diastolic blood pressure 78 mm[Hg] Dion Montiel Ball Work Phone: [facility] 250 DO Work Phone: 07-23-2022 11:09-0400 Systolic blood pressure 138 mm[Hg] Dion Montiel Ball Work Phone: [facility] 250 DO Work Phone: 07-23-2022 11:06-0400 Body height 167.64 cm Dion Montiel Ball Work Phone: [facility] 250 DO Work Phone: 07-23-2022 11:06-0400 Body mass index (BMI) [Ratio] 32.77 kg/m2 Dion Montiel Ball Work Phone: [facility] 250 DO Work Phone: 07-23-2022 11:06-0400 Body surface area Derived from formula 2.01 m2 Dion Montiel Ball Work Phone: [facility] 250 DO Work Phone: 07-23-2022 11:06-0400 Body weight 92.08 kg Dion E Ball Work Phone: [facility] 250 DO Work Phone: 07-23-2022 11:06-0400 Diastolic blood pressure 80 mm[Hg] Dion Montiel Ball Work Phone: [facility] 250 DO Work Phone: 07-23-2022 11:06-0400 Heart rate 90 /min Dion Montiel Ball Work Phone: [facility] 250 DO Work Phone: 07-23-2022 11:06-0400 Systolic blood pressure 140 mm[Hg] Dion Montiel Ball Work Phone: [facility] 250 DO Work Phone: 06-30-2022 11:20-0400 Body height 167.64 cm Dion Montiel Ball Work Phone: [facility] 250 DO Work Phone: 06-30-2022 11:20-0400 Body mass index (BMI) [Ratio] 32.77 kg/m2 Dion Montiel Ball Work Phone: [facility] 250 DO Work Phone: 06-30-2022 11:20-0400 Body surface area Derived from formula 2.01 m2 Dion Montiel Ball Work Phone: [facility] 250 DO Work Phone: 06-30-2022 11:20-0400 Body weight 92.08 kg Dion E Ball Work Phone: [facility] 250 DO Work Phone: 06-30-2022 11:20-0400 Diastolic blood pressure 88 mm[Hg] Dion Montiel Ball Work Phone: [facility] 250 DO Work Phone: 06-30-2022 11:20-0400 Heart rate 96 /min Dion Montiel Ball Work Phone: [facility] 250 DO Work Phone: 06-30-2022 11:20-0400 Systolic blood pressure 158 mm[Hg] Dion Montiel Ball Work Phone: [facility] 250 DO Work Phone: 06-15-2022 14:30-0400 Body height 167.64 cm Tondra Mapus Other [employer] Other 06-15-2022 14:30-0400 Body mass index (BMI) [Ratio] 33.18 kg/m2 Tondra Mapus Other [employer] Other 06-15-2022 14:30-0400 Body weight 93.26 kg Tondra Mapus Other [employer] Other 06-15-2022 14:30-0400 Diastolic blood pressure 85 mm[Hg] Tondra Mapus Other [employer] Other 06-15-2022 14:30-0400 Respiratory rate 18 /min Tondra Mapus Other [employer] Other 06-15-2022 14:30-0400 SaO2% (BldA) [Mass fraction] 95 % Tondra Mapus Other [employer] Other 06-15-2022 14:30-0400 Systolic blood pressure 151 mm[Hg] Tondra Mapus Other [employer] Other 02-25-2022 09:34-0500 Blood Pressure Location ANGELI GUY [facility] 02-25-2022 09:34-0500 Diastolic blood pressure 82 mm[Hg] ANGELI BROOKS [facility] 02-25-2022 09:34-0500 Heart rate 68 /min ANGELI BROOKS [facility] 02-25-2022 09:34-0500 Respiratory rate 16 /min ANGELI BROOKS [facility] 02-25-2022 09:34-0500 Systolic blood pressure 138 mm[Hg] ANGELI BROOKS [facility] 08-26-2021 10:43-0400 Blood Pressure Location Kailee Mckinney Jr. [facility] 08-26-2021 10:43-0400 Diastolic blood pressure 76 mm[Hg] Kailee Mckinney Jr. [facility] 08-26-2021 10:43-0400 Heart rate 85 /min Kailee Mckinney Jr. [facility] 08-26-2021 10:43-0400 Respiratory rate 16 /min Kailee Mckinney Jr. [facility] 08-26-2021 10:43-0400 Systolic blood pressure 138 mm[Hg] Kailee Mckinney Jr. [facility] 01-06-2021 14:59-0500 Body height 167.64 cm Dion E Ball Work Phone: [facility] 250 DO Work Phone: 01-06-2021 14:59-0500 Body mass index (BMI) [Ratio] 32.6 kg/m2 Dion E Ball Work Phone: [facility] 250 DO Work Phone: 01-06-2021 14:59-0500 Body surface area Derived from formula 2.01 m2 Dion E Ball Work Phone: [facility] 250 DO Work Phone: 01-06-2021 14:59-0500 Body weight 91.63 kg Dion E Ball Work Phone: [facility] 250 DO Work Phone: 01-06-2021 14:59-0500 Diastolic blood pressure 76 mm[Hg] Dion E Ball Work Phone: [facility] 250 DO Work Phone: 01-06-2021 14:59-0500 Heart rate 86 /min Dion E Ball Work Phone: [facility] 250 DO Work Phone: 01-06-2021 14:59-0500 Systolic blood pressure 128 mm[Hg] Dion E Ball Work Phone: [facility] 250 DO Work Phone: Encounters Encounter Date Encounter Type Care Provider Facility Start: 09-28-2023 End: 09-28-2023 ambulatory Sara Bob Facility:CD:[id number] Start: 09-06-2023 End: 09-06-2023 ambulatory [facility] Work Phone: Start: 09-06-2023 End: 09-06-2023 Patient encounter procedure [facility] Work Phone: Start: 07-13-2023 End: 07-13-2023 Patient encounter procedure [facility] Work Phone: Start: 06-30-2023 End: 06-30-2023 Office [...] Urinary retention Start: 06-30-2023 End: 06-30-2023 ambulatory [facility] Start: 06-29-2023 Non-patient / Non-visit [facility] Work Phone: Start: 06-24-2023 End: 06-24-2023 ambulatory [facility] Work Phone: Start: 06-24-2023 End: 06-24-2023 Patient encounter procedure [facility] Work Phone: Start: 06-22-2023 Non-patient / Non-visit [facility] Work Phone: Start: 06-15-2023 End: 06-15-2023 ambulatory Ton Rhodes Facility:[facility] Start: 06-08-2023 ambulatory GABRIELLE GUY Facility:[facility] Start: 05-24-2023 End: 05-24-2023 ambulatory [facility] Work Phone: Start: 05-24-2023 End: 05-24-2023 Patient encounter procedure [facility] Work Phone: Start: 05-20-2023 Non-patient / Non-visit [facility] Work Phone: Start: 05-10-2023 End: 06-22-2023 Pre-admission assessment Renato MCCABE [facility] Start: 05-05-2023 ambulatory GABRIELLE GUY Facility: [place] Start: 05-04-2023 Non-patient / Non-visit [facility] Work Phone: Start: 04-28-2023 End: 04-28-2023 ambulatory Sara M. Lue Facility: [facility] Start: 04-28-2023 End: 04-28-2023 Patient encounter procedure [facility] Start: 03-26-2023 End: 03-26-2023 ambulatory Sara M. Lue Facility: [facility] Start: 03-26-2023 End: 03-26-2023 Patient encounter procedure Sara M. Lue [facility] Start: 03-25-2023 End: 03-25-2023 ambulatory Sara M. Lue Facility:[id number] Start: 03-17-2023 End: 03-17-2023 ambulatory Dion Griggs Other [employer] [facility] Other Start: 03-17-2023 Office outpatient vi sit 25 minutes Dion Griggs [facility] Start: 03-17-2023 End: 03-17-2023 Patient encounter procedure [facility] Start: 03-16-2023 End: 03-16-2023 ambulatory Tondra Mapus Other [employer] Other Start: 03-16-2023 Telephone encounter Tondra Mapus [facility] Start: 02-02-2023 End: 02-02-2023 ambulatory PA-C ANGELI GUY Facility:[facility] Start: 02-02-2023 End: 02-02-2023 Patient encounter procedure ANGELI GUY [facility] Start: 12-15-2022 (DM) Diabetes Tondra [facility] Start: 12-15-2022 End: 12-16-2022 ambulatory Tondra [employer] Other Start: 12-02-2022 End: 12-02-2022 ambulatory Dion Griggs Other [employer] Other Start: 12-02-2022 Nursing evaluation o f patient and report Dion Griggs [facility] Start: 09-02-2022 End: 09-02-2022 ambulatory Dion Gabriel Other [employer] Other Start: 09-02-2022 Patient encounter procedure Dion Griggs [facility] Start: 08-20-2022 End: 08-20-2022 ambulatory Dion Griggs Other [employer] Other Start: 08-20-2022 Office outpatient vi sit 15 minutes Dion Gabriel [facility] Start: 08-04-2022 End: 08-04-2022 Patient encounter procedure ANGELI GUY [facility] Start: 07-23-2022 Office outpatient vi sit 10 minutes Dion Dinesh Gabriel Work Phone: [facility] 250 DO Work Phone: Start: 06-30-2022 Telephone encounter Dion Griggs [facility] Start: 06-30-2022 Office outpatient vi sit 25 minutes Dion E Ball Work Phone: [facility] 250 DO Work Phone: Start: 06-30-2022 End: 06-30-2022 ambulatory Jaleesa Conn [facility] Other Start: 06-15-2022 (DM) Diabetes Tondra Mapus [facility] Start: 06-15-2022 End: 06-15-2022 ambulatory Tondra Mapus Other [email or web address] Other Start: 06-10-2022 End: 06-11-2022 ambulatory TONDRA MAPUS Facility:[facility] Start: 05-04-2022 Rx Renewal Dion szymanski Work Phone: [facility] 250 DO Work Phone: Start: 04-27-2022 End: 04-27-2022 ambulatory Tondra Mapus Other [email or web address] Other Start: 04-27-2022 Telephone encounter Tondra Mapus [facility] Start: 02-25-2022 End: 02-25-2022 Patient encounter procedure ANGELI GUY [facility] [employer] Start: 02-06-2022 End: 02-07-[address] KAILEE Valente Facility:[facility] Start: 09-03-2021 Adult health examination Noam radha Griggs Other [facility] Other Start: 09-01-2021 Pre-procedure evalua tion check Dion Griggs Other [employer] Other Start: 08-26-2021 End: 08-26-2021 Patient encounter procedure Kailee Mckinney Jr. [facility] Start: 06-23-2021 End: 06-23-2021 ambulatory Tondra Mapus Other [facility] Other Start: 06-23-2021 Telephone encounter Tondra Mapus [facility] Start: 06-20-2021 End: 06-21-2021 ambulatory TONDRA MAPUS Facility: Start: 03-24-2021 Rx Renewal iDon szymanski Work Phone: [facility] [employer] 250 DO Work Phone: Start: 03-18-2021 End: 03-18-2021 ambulatory Tondra Mapus Other [facility] Other Start: 03-18-2021 Telephone encounter Tondra Mapus [facility] Start: 01-06-2021 Office outpatient vi sit 25 minutes [facility]gs [facility] Work Phone: Start: 03-19-2020 End: 03-20-2020 Evaluation and management of inpatient CACHORRO ROBLERO Facility:[facility] Start: 03-19-2020 Patient encounter procedure UNKNOWN PROVIDER Facility:[facility] Procedures Date Procedure Procedure Detail Performing Clinician Start: 06-29-2023 Bacteria identified in Urine by Culture Start: 05-24-2023 Blood Culture 1 Start: 05-24-2023 Blood Culture 2 Start: 05-20-2023 Bacteria identified in Urine by Culture Start: 05-20-2023 Blood Culture 1 Start: 05-20-2023 Blood Culture 2 Start: 02-06-2022 PSA screening YNES BRAN Comment on above: Performed By: #### P SAD #### [facility] [address] [place] [address] Dr. Kim Roper Start: 05-01-2020 Transurethral prostatectomy Kailee Mckinney Jr. Start: 03-18-2020 Cystoscopy Kailee hernandez Jr. Start: 02-27-2015 Screening for malign ant neoplasm of colon Dion Griggs Other Start: 11-07-2013 Screening for malign ant neoplasm of prostate Dion Griggs Other Start: 03-01-2010 Total colonoscopy Noam radha Griggs Work Phone: Appendectomy Dion Griggs Work Phone: Appendectomy Kailee Valente Arthroplasty of knee Kailee Mckinney Jr. Arthroscopy of knee Dion Griggs Work Phone: Colonoscopy Kailee Valente Depression screening Juan Griggs Other Screening for malign ant neoplasm of colon Dion Griggs Other Screening for malign ant neoplasm of prostate Dion Griggs Other Plan of Treatment Date Care Activity Detail Author Start: 03-19-2030 DTaP/Tdap/Td Vaccine s (3 - Td or Tdap) DTaP/Tdap/Td Vaccines (3 - Td or Tdap) [facility] Start: 04-12-2024 End: 04-12-2024 Patient encounter procedure 04/12/2024 11:20 AM EST Office Visit [facility] [address] [id number] Jaleesa Conn MD 703 [facility] 2, [address] [address] [facility] Start: 10-31-2023 Influenza vaccination Influenz a Vaccine (Season Ended) [facility] Start: 10-27-2023 ambulatory Ambulatory Facility:[facility] [place] Start: 06-30-2023 FUV, Provider: Jaleesa Conn, Status: Pen, Time: 11:00 AM FUV, Provider: Jaleesa Conn, Status: Pen, Time: 11:00 AM [facility] 250 DO Work Phone: Start: 05-20-2023 Blood Culture 1 Blood Culture [address] [facility] Start: 05-20-2023 Blood Culture 2 Blood Culture [address] [facility] Start: 10-30-2022 COVID-19 Vaccine ( season) COVID-19 Vaccine ( season) [facility] Start: 08-15-2022 Glaucoma screening Diabetes: R etinopathy Screening [facility] Start: 07-23-2022 NURSEVST, Provider: EMILY BERGMAN [employer] [facility],[id number], Status: Pen, Time: 11:00 AM NURSEVST, Provider: EMILY BERGMAN [employer] 1,[id number], Status: Pen, Time: 11:00 AM -[facility] 250 DO Work Phone: Start: 06-30-2022 FUV, Provider: Jaleesa Conn, Status: Pen, Time: 11:20 AM FUV, Provider: Jaleesa Conn, Status: Pen, Time: 11:20 AM -[facility] 250 DO Work Phone: Start: 07-01-2021 FUV, Provider: Jaleesa Conn, Status: Pen, Time: 1:00 PM FUV, Provider: Jaleesa Conn, Status: Pen, Time: 1:00 PM -[facility] 250 DO Work Phone: Start: 2004 RSV patient s and/or patients aged 60+ years (1 - 1-dose 60+ series) RSV patients and/or patients aged 60+ years (1 - 1-dose 60+ series) [facility] Start: 1994 Zoster Vaccines (1 o f 2) Zoster Vaccines (1 of 2) [facility] Start: 07-15-1963 Urine screening for protein Diabetes: Urine Protein Screening [facility] Start: 1962 Hepatitis C screening Hepatitis C Sc [facility] Start: 1954 Diabetic foot examination Diabetes: Foot Exam [facility] Start: 1944 Hemoglobin A1c measurement Diabetes: Hemoglobin A1C [facility] Start: 1944 Lipid panel Lipid Panel [facility] Start: 1944 Medicare Annual Wellness Visit Medicare Annual Wellness Visit (AWV) [facility] Patient Education Diabetes in Ol aroldo Adults [facility] Work Phone: [facility] Immunizations Immunization Date Immunization Notes Care Provider Mark annamary 12-02-2022 influenza, high dose seasonal, preservative-free Dion Griggs Other [employer] Other 12-02-2022 influenza virus vaccine, unspecified formulation [facility] 12-10-2021 Fluad Quadrivalent 0 .5 ML Intramuscular Prefilled Syringe Dion E Ball Work Phone: [facility] 250 DO Work Phone: 12-10-2021 influenza virus vaccine, split virus (incl. purified surface antigen) Dion Griggs Other [place] [employer] Other 12-10-2021 influenza virus vaccine, unspecified formulation ANGELI GUY [facility] 12-10-2021 influenza, high dose seasonal, preservative-free Dion Griggs Other [employer] Other 12-06-2020 influenza virus vaccine, unspecified formulation ANGELI BROOKS [facility] 12-06-2020 influenza, high dose seasonal, preservative-free Dion E Ball Work Phone: [facility] Comment on above: Series: 12-05-2020 influenza virus vaccine, split virus (incl. purified surface antigen) Dion Gabriel Other [employer] Other 12-05-2020 influenza virus vaccine, unspecified formulation [facility] 05-06-2020 Josephine COVID-19 Vaccine 0.5 ML Intramuscular Suspension Dion E Ball Work Phone: [facility] Comment on above: Series: 03-19-2020 diphtheria, tetanus toxoids and pertussis vaccine Dion Griggs Work Phone: [facility] 03-19-2020 tetanus toxoid, redu noman diphtheria toxoid, and acellular pertussis vaccine, adsorbed Jaleesa Conn MD Work Phone: [facility] Work Phone: 12-05-2019 influenza virus vaccine, split virus (incl. purified surface antigen) Dion Griggs Other [facility] Other 12-05-2019 influenza virus vaccine, unspecified formulation [facility] 11-30-2019 influenza virus vaccine, unspecified formulation ANGELI GUY [facility] 11-30-2019 influenza, high dose seasonal, preservative-free Dion E Gabriel Work Phone: [facility] [employer] DO Work Phone: 10-31-2019 influenza virus vaccine, unspecified formulation Dion Dinesh Gabriel Work Phone: [facility] 11-23-2018 influenza virus vaccine, split virus (incl. purified surface antigen) Dion Griggs Other [facility] Other 11-23-2018 influenza virus vaccine, unspecified formulation ANGELI GUY [facility] 11-23-2018 influenza, injectabl e, quadrivalent, preservative free Dion E Ball Work Phone: [facility] [employer] 250 DO Work Phone: 10-30-2018 influenza, high dose seasonal, preservative-free Dion E Ball Work Phone: [facility] 250 DO Work Phone: 04-01-2015 pneumococcal conjuga te vaccine, 13 valent Dion E Gabriel Work Phone: [facility] 03-01-2015 pneumococcal polysaccharide vaccine, 23 valent Dion Griggs Work Phone: [facility] Comment on above: Series: 02-27-2015 pneumococcal conjuga te vaccine, 13 valent iDon Griggs Other [facility] 02-27-2015 pneumococcal Conjuga te, unspecified formulation; 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: [Need for prophylactic vaccination against Streptococcus pneumoniae (pneumococcus)] Dion Griggs Other [facility] Other 03-01-2010 influenza virus vaccine, unspecified formulation Dion Griggs Work Phone: [facility] 250 DO Work Phone: 03-01-2006 pneumococcal polysaccharide vaccine, 23 valent Dion Griggs Work Phone: [facility] 250 DO Work Phone: influenza virus vaccine, unspecified formulation Dion Griggs Work Phone: [facility] 250 DO Work Phone: Comment on above: 2009 Payers Date Payer Category Payer Unknown 2017 Self-pay [id number] 2017 Unknown [id number] 2009 Medicare MEDICARE MEDICAR E RAILROAD [id number] 2009-Present [address] [place] [address] [id number] 1959 Medicare [id number] 1959 Unknown [id number] 1944 Unknown [id number] 1944 Unknown [id number] [id number] 1944 Unknown [id number] 2.16.840.1.907846.3.579.2.593 1944 Unknown [id number] 2.16.840.1.368913.3.579.2.593 1944 Unknown [id number] 2.16.840.1.591875.3.579.2.593 1944 Unknown [id number] 2.16.840.1.426739.3.579.2.356 1944 Unknown [id number] 2.16.840.1.639702.3.579.2.718 1944 Unknown [id number] 2.16.840.1.360113.3.579.2.1244 1944 Unknown [id number] 2.16.840.1.363118.3.579.2.727 1944 Unknown [id number] 2.16.840.1.359481.3.579.2.727 1944 Unknown [id number] 2.16.840.1.540451.3.579.2.727 1944 Unknown [id number] 2..840.1.212991.3.579.2.727 1944 Unknown [id number] 2.16.840.1.069966.3.579.2.727 1944 Unknown [id number] 2.16.840.1.196393.3.579.2.727 1944 Unknown [id number] 2.16.840.1.040472.3.579.2.727 Unknown [id number] [id number] Social History Date Type Detail Facility Start: 06-30-2023 No illicit drug use No illicit drug use [facility] 250 DO Work Phone: Comment on above: 3 cups coffee daily, occasionl diet soda; 1 beer a month; Start: 06-30-2023 Sex Assigned At N [facility] Other Start: 08-26-2021 End: 06-24-2023 Tobacco smoking status Ex-smoker (finding) [facility] Start: 04-28-2023 Tobacco smoking status Never [facility] Start: 1945 Sex Assigned At Male F [facility] Start: 03-01-1972 History of tobacco use Current smoke r [facility] Work Phone: Start: 03-01-1972 History of tobacco use Cigarette Smo ker [facility] Work Phone: Start: 06-30-2023 Tobacco use and exposure Smokeless tobacco non-user [facility] Work Phone: Start: 06-30-2023 Alcoholic beverage intake Current drinker of alcohol (finding) [facility] Work Phone: Start: 06-30-2023 Alcohol Comment rarely [facility] Work Phone: Start: 1945 [facility] Work [facility]: Start: 06-20-2023 End: 06-30-2023 Exposure to SARS-CoV-2 (event) Not sure [facility] Medical Equipment Procedure Code Equipment Code Equipment Origin al Text Equipment Identifier Dates Start: 04-23-2014 Functional Status Date Assessment Result Facility 04-28-2023 Functional Status N/A [facility] 02-02-2023 Functional Status N/A [facility] 08-04-2022 Functional Status N/A [facility] 02-25-2022 Functional Status N/A [facility] 08-26-2021 Functional Status N/A [facility] Clinical Notes 08-26-2021 to 06-30-2023 Jaleesa [...] 3. Diabetes, managed by diabetes clinic at [facility] 4. Class I obesity. Encouraged more weight control with diet and exercise. 5. Coronary artery disease with 50% LAD stenosis in 2009 cardiac catheterization, nuclear stress test 2020 was normal risk factor have been aggressively targeted 6. 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 Obstructive sleep apnea compliant with CPAP machine. Jaleesa Conn MD, [facility] Review of Systems All other systems [...] day with meals., Disp: , Rfl: omega 8-lcu-guy-fish oil (Fish OiL) 1,000 mg (120 mg-180 [...] Scribe Attestation By signing my name below, ICelina LPN , Scribe attest that this documentation has been prepared [...] discussion and plan. documented in this encounter [facility] Work Phone: 06-30-2023 Instructions Celina Womack [...] Increase physical activity. documented in this encounter [facility] Work Phone: 06-18-2023 Note [id number]2023 Note [facility] SURGERY Clinical Discharge Summary PERSON INFORMATION Name JOSEPH ESCALONA Age 77 Years 1945 Sex MALE Language Kiswahili PCP Dion Griggs Marital Status [facility] Service Ambulatory Surgery Acct# Arrival 06/15/2023 11:20:08 Visit Reason SURGERY - CYSTOSCOPY Acuity LOS 008 05:56 Address: [address] [place] [address] Comment: PROVIDER INFORMATION VITALS INFORMATION Vital Sign [...] including vitamins, herbs, eye drops, creams, and itau-cwh-gaqbjjf medicines. ?Whether you are or may be [...] provider. Document Revised: 10/29/2021 Document Reviewed: 09/20/2020 [employer] Patient Education 2022 [employer]. Follow Up Care 03/26/2023 11:35:17 With:Paulino GAVIN, RUBEN Mendez, URO Address: [address] [place] [phone] When: Unknown Comments:sched [employer]rodynamics 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 Any problems you or family members [...] provider tells you to take them. Taking ghop-fuz-vcslxfd medicines, vitamins, herbs, and supplements. Tests You [...] Follow these instructions at home: Medicines Take ngno-rza-rwgmlek and prescription medicines only as told by [...] provider. Document Revised: 10/29/2021 Document Reviewed: 09/27/2020 [employer] Patient Education 2022 [employer]. Follow Up Care 08/04/2022 10:55:35 With:BROOKS ANTHONY, ANGELI Montiel, URL Address: [address] [place] [address] [facility] [address] [phone] When: Unknown Comments:sched cysto/TRUS [facility] 12-05-2023 NoteUrology Cystoscopy Cystoscopy is a [...] including vitamins, herbs, eye drops, creams, and yaxq-ebw-qxiegkw medicines. ? Any problems you or family [...] tells you to take them. ? Taking djio-dzi-rgypwii medicines, vitamins, herbs, and supplements. Tests You [...] these instructions at home: Medicines ? Take xonv-znb-vzpaczm and prescription medicines only as told by [...] or the department th (more content not included)...[facility] 12-15-2022 Evaluation note* Encounter Date Diagnosis Assessment [...] f/u with pcp for further evaluation. Nov, long-term current use of insulin (ICD-10 - Z79.4) Nov, Vitamin B 12 deficiency (ICD-10 - E53.8) 05/2022 vit b 12 281 at target Nov, BMI 33.0-33.9,adult (ICD-10 - Z68.33) Setting weight-loss goals material was published [employer] Other 06-22-2023 Evaluation note* Encounter Date Diagnosis Assessment Notes Treatment Notes Treatment Clinical Notes Jul, Acute bacterial conjunctivitis of right eye (ICD-10 - H10.31) Wipe w/ warm wash cloth in morning Artificial tears Frequent hand washing Notify office or see lactation specialist if develop pain, blurred vision or fails to improve Jul, Viral URI (ICD-10 - J06.9) Instructed to use Robitussin or Mucinex for cough, saline or Flonase NS for congestion, Tylenol for pain and fever. Jul, Type 2 diabetes mellitus with hyperglycemia (ICD-10 - E11.65) Acute infection may cause BS to increase temporarily. No adjustment in treatment necessary [employer] Other 06-06-2023 Hospital Discharge instructions Patient Education [...] urethra. Follow these instructions at home: Take weus-zoh-kfumhbw and prescription medicines only as told by [...] provider. Document Revised: 09/03/2021 Document Reviewed: 09/03/2021 [employer] Patient Education 2022 [employer]. Follow Up Care 02/25/2022 10:18:55 With:ANGELI GUY PA-C, URL Address: When:1 year [facility] [employer] 05-02-2023 Evaluation note* Encounter Date Diagnosis Assessment Notes Treatment Notes Treatment Clinical Notes June, Arteriosclerotic hea rt disease (ASHD) (ICD-10 - I25.10) LHC: 50% 2009 [employer] Other 04-17-2023 Evaluation note* Encounter Date Diagnosis [...] f/u with pcp for further recommendation. May, long-term current use of insulin (ICD-10 - Z79.4) May, Vitamin B 12 deficiency (ICD-10 - E53.8) 05/2022 vit b 12 281 at target May, BMI 33.0-33.9,adult (ICD-10 - Z68.33) Setting weight-loss goals material was published [employer] Other 12-28-2022 Hospital Discharge instructions Patient Education [...] including vitamins, herbs, eye drops, creams, and gads-sgc-gjnjgbg medicines. ?Whether you are or may be [...] 12/13/2007 Document Revised: 06/06/2019 Document Reviewed: 12/20/2017 Elsevier Patient Education 2020 [employer] Follow Up Care 08/26/2021 10:57:16 With:BROOKS ANTHONY, ANGELI Montiel, URL Address: [address] [place] [address] When: Unknown [facility] 06-28-2022 Hospital Discharge instructions Patient Education [...] Follow these instructions at home: Medicines Take cqkw-isi-fgukcdc and prescription medicines only as told by [...] or the blood stops without treatment. Take waam-yeg-abvskzp and prescription medicines only as told by your health care provider. Drink enough fluid to keep your urine clear or pale yellow. This information is not intended to replace advice given to you by your health care provider. Make sure you discuss any questions you have with your health care provider. Document Released: 02/15/2006 Document Revised: 07/12/2019 Document Reviewed: 03/20/2017 [employer] Patient Education 2020 [employer]. Follow Up Care 02/25/2021 11:22:41 With:Hank Robbins MD, Kailee Szymanski, URO Address: [facility] [address], [place] [address] [phone] When:02/25/2022 [facility] chief complaint+Reason for visit Narrative* Chief Complaint meter [...] mellitus with hyperglycemia Medicare annual wellness visit, subsequent [facility] Work Phone: Evaluation + Plan note Future Appointments Appointment Date:03/10/2022 10:15:00 AM Scheduled Provider:Kailee Mckinney Jr., MD Location:[facility] Appointment Type:URO Office Visit Diagnostic Tests Pending * PSA Total 08/26/21 [facility] evaluation + Plan note Future Appointments Appointment Date:08/04/2022 10:00:00 AM Scheduled Provider:ANGELI GUY PA-C Location:[facility] Appointment Type:URO Office Visit [facility] evaluation + Plan note Future Appointments Appointment Date:02/03/2023 01:00:00 PM Scheduled Provider:ANGELI GUY PA-C Location:[facility] Appointment Type:URO Office Visit [facility] evaluation + Plan note Future Appointments Appointment Date:04/28/2023 10:00:00 AM Scheduled Provider:Sara Bob MD Location:[facility] Appointment Type:URO Office Visit [facility] Evaluation noteNo InformationNort [email or web address] Other Evaluation [employer] Other Evaluation noteNo assessment information available [facility] Work Phone: Evaluxhofv note* Diagnosis Onset Date Resolution Status Bilateral nephrolithiasis ac [place] Urinary retention with incomplete bladder emptying acute Pyelonephritis of right kidney noneactive Dietary counseling and surveillance acute Hyperlipidemia LDL goal <100 acute Primary hypertension acute Type 2 diabetes mellitus acu te Vitamin B 12 deficiency acut e [facility] Work Phone: Evaluation note* Diagnosis Essential [...] retention of urine documented in this encounter [facility] Work Phone: Evaluation note* Diagnosis Onset [...] acute Medicare annual wellness visit, subsequent noneactive [facility] Work Phone: Hise[employer] general Narrative - Reported* Type Description Date Medical History hypertension Medical History hyperlipidemia Medical History DM2 Medical History obesity Medical History CAD- 50% occlusion LAD-Sees Dr Keila oro Surgical History appendectomy Surgical History RT knee surgery Surgical History arthroscopic knee surgery, left 01/17 Surgical History Cystoscopy 05/01/2020 Hospitalization History see above surgery [employer] Other Hisubny general Narrative - Reported* Type Description Date [...] EGD 1997 Hospitalization History see above surgery [employer] Other Hisltsh general Narrative - ReportedNort [email or web address] Other Hospital course Narrative No data available for this section [facility] Hospital Discharge instructions No data available for this section [facility] Progress note No data available for this section [facility] reason for referral (narrative)* Consultation (Routine) - Authorized Specialty Diagnoses / Procedures Referred By Contac t Referred To Contact Cardiology Diagnoses ASCVD (arteriosclerotic cardiovascular disease) Procedures Follow Up In Cardiology Jaleesa Conn MD [address] [facility] [address], [address] [address] Jaleesa Conn MD [address] [facility] [address], [address] [address] Referral ID Status Reason Start Date Expiration Date V isits Requested Visits Authorized [id number] Authorized 06/30/2023 06/29/2024 1 1 [facility] Work Phone: Summary Purpose Family History [...] 3. Diabetes, managed by diabetes clinic at [facility] * 4. Obesity. Encouraged more weight [...] 3. Diabetes, managed by diabetes clinic at [facility] * 4. Obesity. Encouraged more weight [...] 3. Diabetes, managed by diabetes clinic at [facility], recent A1c 7.2 * 4. Obesity. Encouraged more weight control with diet and exercise. His weight has increased 10 pounds from last visit, encouragement provided to reduce calorie consumption since he seems to be physically active * 5. Coronary artery disease with 50% LAD stenosis in 2010 cardiac catheterization, nuclear stress test 2020 was normal risk factor have been aggressively targeted * 6. Recent development of significant back pain left arm pain and left lower extremity pain. Patientis scheduled to see his PCP soon. The patient is are concerned about this being cardiac in origin the nature of the symptoms does not point out cardiac cause. * Jaleesa Conn MD, [facility] * JOSEPH ESCALONA is being seen for [...] section and content) DATE CREATED AUTHOR 08/16/2019 [facility] DATE CREATED AUTHOR AUTHOR'S ORGANIZ ATION 03/26/2020 [facility] DATE CREATED AUTHOR AUTHOR'S ORGANIZ ATION 06/15/2022 [facility] DATE CREATED AUTHOR AUTHOR'S ORGANIZ ATION 07/01/2022 [facility] DATE CREATED AUTHOR AUTHOR'S ORGANIZ ATION 07/02/2022 [employer] DATE CREATED AUTHOR AUTHOR'S ORGANIZ ATION 04/15/2023 [facility] DATE CREATED AUTHOR AUTHOR'S ORGANIZ ATION 07/08/2023 [facility] DATE CREATED AUTHOR AUTHOR'S ORGANIZ ATION 09/13/[address] [facility] DATE CREATED AUTHOR AUTHOR'S ORGANIZ ATION 10/20/2023 [facility] REASON FOR VISIT (unrecogniz ed section and [...] March 17, 2023 End: March 17, 2023 Wire Annealer Relationship Specialty Start Date End Date Dion Griggs DO PCP - General 08/15/19 Team Status: Active Member Role Status Dion Griggs DO Primary Care Provide r, Attending Provider Active Start: June 29, 2023 Team Status: Inactive Member Role Status Dion Griggs DO Primary Care Provider Active Start: July 13, 2023 End: July 13, 2023 David Botello RN Attending Provider Active St art: July 13, 2023 End: July 13, 2023 Team Status: Inactive Member Role Status Dion Griggs DO Primary Care Provide r, [...] BE BASED ON THE PRIMARY CLINICAL RECORDS. [facility]. provides no warranty or guarantee of the accuracy or completeness of information in this document.
[2023-10-27] MEDS: LACTATED RINGER'S SOLUTION 1,000 ML 50 ML IV (10:22)
[2023-10-27] MEDS: CEFAZOLIN SODIUM 2 GM/50 ML D5W PREMIX IV (11:20)
[2023-10-27] MEDS: IOHEXOL 240 MG/ML - 10 ML VIAL INJ (13:02)
--- NOTE | 2023-10-27 13:15 | XR_ITS ---
[address] [address] Patient Name: KAREN ESCALONA MRN: [id number] date: 1945 Sex: M Assigned Patient Location: [facility] Current Patient Location: [facility] Accession/Order Number: [id number] Exam Date: 10/27/2023 11:35 Report Date: 10/27/2023 13:48 At the request of: VIRI CAREY Procedure: XR urethrogram retrograde EXAM: XR urethrogram retrograde HISTORY: Bilateral retrograde COMPARISON: None. TECHNIQUE: 16.94 mCi. 5 images FINDINGS: 5 images demonstrate placement of bilateral double-J ureteral stent, normally positioned and formed. Retrograde injection of iodinated contrast into the left renal collecting system with mild hydronephrosis XR/XR urethrogram retrograde IMPRESSION: Placement of bilateral double-J ureteral stents Electronically authenticated by: PERLA NINO Date: 10/27/2023 13:48
--- NOTE | 2023-10-27 13:45 | PM.URSON ---
Urology Surgery Operative Note Operative Note Procedure Date: 10/27/23 Time Out Performed: yes Pre-op Diagnosis: Bilateral ureteral and kidney stones Post-op Diagnosis: same as pre-op Procedures performed: Cystoscopy, bilateral retrograde pyelogram, bilateral ureteroscopy with laser lithotripsy/stone extraction, stent exchange Anesthesia: SEFERINO Primary Surgeon: Sara Bob Complications: none Estimated blood loss (mL): 0 Findings: Membranous urethral stricture. Non obstructing prostate, fixed bladder neck, elevated. 3+ trabeculated, small capacity bladder. Mild cloudy debris within bladder. R URS- prior ureteral stone in kidney underwent laser lithotripsy and removal of fragments. L URS- L proximal ureteral stone laser lithotripsied and basket extracted. Large left lower pole stone underwent laser lithotripsy, basket extraction. Dusting of remaining smaller fragments. BL RPG no hydro or extravasation of contrast. Complex collecting system on left Specimens: bilateral kidney stones Drains: 6Fr x 24cm JJ bilateral ureteral stents Incision: none Indications for Procedures: 78 year old male recently diagnosed with bilateral ureteral stones and kidney stones and UTI s/p bilateral stent placement on 09/28/23. After discussion of risks/benefits of management options, he elected to proceed with definitive stone treatment as above. Risks were discussed including but not limited to bleeding, pain, infection, damage to surrounding structures, inability to treat the stone/place a stent, and need for additional procedures. The patient understands the stent is not permanent and needs to be removed or exchanged within 3 months to prevent encrustation, infection, invasive procedures and/or permanent renal damage. Detailed description of Procedure: After informed consent was obtained, the patient was brought to the operating room and transferred onto the operating table in supine position. Sequential compression devices were placed on bilateral lower extremities. The patient received the appropriate dose of preoperative IV antibiotics and general anesthesia ETT was induced. They were positioned in modified dorsolithotomy with the appropriate pressure points padded, prepped, and draped in the usual sterile fashion for this procedure. An operative safety timeout was performed confirming the patient's identity, laterality and procedure, and all present agreed to proceed. I began by inserting a 22 [place] rigid cystoscope with 30 degree lens into the patient's urethra and bladder with mild difficulty due to stricture. There were no bladder tumors, lesions. White debris within bladder and bilateral stents noted. Left ureteral orifice was more superior on trigone vs right. I turned my attention to the right and brought the indwelling stent to the meatus with graspers. A Sensor wire was inserted into the stent up to the renal pelvis confirmed on fluoroscopy and stent was removed. An 11/13 [place] by 36 cm ureteral access sheath was inserted over the wire in a sequential fashion to gain access to the proximal ureter. Next a flexible ureteroscope was inserted through the sheath and advanced to the ureter under fluoroscopic guidance until the stone was reached. The stone was found to be in the right lower pole. A 1.8 tipless nitinol basket was used to relocate the stone into the upper pole. A 270 ?m thulium laser fiber was used to break the stone into fragments which were then removed with the basket. After the stone was adequately treated, a full renoscopy was performed confirming no significant residual stones or fragments remained. Contrast was injected to assist with mapping for the renoscopy. The wire was reinserted and a pull down ureteroscopy was performed confirming no stones remained in the ureter. The wire was backloaded through the cystoscope and 6Fr x 24 cm JJ ureteral stent was advanced over the wire, noting adequate curl in the renal pelvis and bladder on fluoroscopic and direct visualization. Attention was turned to the left and in a similar fashion, the stent was brought to the meatus, wire inserted up stent to renal pelvis and stent removed. 11/13Fr x 36 cm ureteral access sheath was advanced over the wire to gain access to the proximal ureter, seen on fluoroscopy. The flexible ureteroscope was advanced through the sheath until stone was reached. The same laser fiber was used to break the stone and basket extract the fragments. The ureteroscope was advanced to the kidney and the known kidney stone was lasered and basket extracted. The few small remaining fragments were popcorned and dusted into tiny fragments smaller than the laser fiber. Contrast was injected to assist with mapping for the renoscopy to ensure no significant fragments remained. The wire was reinserted and a pull down ureteroscopy was performed confirming no stones remained in the ureter. The wire was backloaded through the cystoscope and 6Fr x 24 cm JJ ureteral stent was advanced over the wire, noting adequate curl in the renal pelvis and bladder on fluoroscopic and direct visualization. The bladder was drained and inspected one final time to ensure adequate position of stent and no undue trauma to the bladder was done. The stones were sent for pathology and the cystoscope was removed. The patient tolerated the procedure well without complication. The patient was awakened from anesthesia and sent to PACU in stable condition. Plan: Discharge home with stent pain medications. Follow up in 1-2 weeks for in-office cystoscopy, bilateral stent removal Other Provider present: No Post Operative care instructions: See discharge instructions Attending Doc Confirm Attending Attestation: Yes
--- NOTE | 2023-10-27 14:19 | PC.NURSE ---
patient had large blood tinged void at this time
== END 2023-10-27 14:36 | disposition home or self-care (01) ==
PROVIDERS: PCP Internal Medicine; Visit Provider Urology
PROC: (CPT 52356; principal; 2023-10-27 10:55)
DX: N20.2 Calculus of kidney with calculus of ureter (principal); Z87.440 Personal history of urinary (tract) infections; I25.10 Atherosclerotic heart disease of native coronary artery without angina pectoris; K21.9 Gastro-esophageal reflux disease without esophagitis; E78.5 Hyperlipidemia, unspecified; E11.9 Type 2 diabetes mellitus without complications; G47.33 Obstructive sleep apnea (adult) (pediatric); Z79.4 Long term (current) use of insulin; Z79.84 Long term (current) use of oral hypoglycemic drugs; Z79.85 Long-term (current) use of injectable non-insulin antidiabetic drugs; Z87.891 Personal history of nicotine dependence
CPT/HCPCS: 52356; 74420; 82365; 99999; J0690; J1100; J2250; J2405; J2704; J3010; Q9966

== ENCOUNTER 2023-11-30 14:13 | Outpatient (OUT) | payer MEDICARE, SELFPAY ==
--- OUTSIDE RECORDS SUMMARY | 2023-11-30 14:34 | XMS_ITS | CCD ---
Author Organization [facility] CliniSymo Care Team Providers Care Clinical Sociologist Name Role Phone LUTHER ROBLEROIN Referring Unavailable CLIFF RODRIGUEZ Attending Unavailable PROVIDER, [...] Jaleesa Conn Referring Unavailable Dr. Dion Griggs [facility] Unavai lable Mapus, Tondra K Attending Unavailable Cristobal, Tondra K Admitting Unavailable Dion Griggs Primary Care Unavailable Dion Griggs DO Primary Care Provider Ton Rhodes Attending Unavailable Ton Rhodes Admitting Unavailable Dion Griggs Primary Care Unavailable JALEESA CONN Attending Unavailable DION GRIGGS Primary Care Unavailable Sara Bob Referring Unavailable Sara Bob Attending Unavailable ANGELI GUY Attending Unavailable Sara Bob Attending Unavailable Sara Bob Attending Unavailable ANGELI GUY Attending Unavailable Sara Bob Attending Unavailable ANGELI GUY Attending Unavailable Sara Bob Referring Unavailable Sara Bob Admitting Unavailable Sara Bob Attending Unavailable Sara Bob Attending Unavailable Sara Bob Referring Unavailable Allergies Allergy Classification Reported Allergen(s) Allergy Type Date of Onset Reaction(s) Facility (3 sources) patient allergy list reviewed by nurse or physicia Propensity to adverse reactions Comment:[employer] Other (1 source) No Known Medication Allergies; 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: [No Known Medication Allergies] Propensity to adverse reactions to drug (disorder) [facility] Repository Medications Current Medications Medication Drug [...] / benazepril hydrochloride 20 mg oral capsule (9 sources) Dihydropyridine Calcium Channel Laura, Angiotensin Converting [...] 24, 2023 1:41pm take 1 tablet by [facility] every other day cholecalciferol (Vitamin D-3) 25 MCG (1000 UT) tablet Take 1 tablet (1,000 Units) by mouth every other day. Active take [address] [facility] every twenty-four hours Vitamin D3 25 MCG (1000 UT) 1 capsule Orally Once a day Active take [address] [facility] every week Vitamin D3 10 MCG (400 UNIT) Oral Capsule 1 CAPSULE EVERY WEEK Quantity: 0 Refills: 0 Ordered: 06-Jan-2021 DO Active 0.5 ml dulaglutide 3 mg/ml auto-injector (20 sources) GLP-1 Receptor Agonist Start: 02-25-2021 Trulicity Pen 1.5 mg/0.5 mL subcutaneous solution 1.5 mg, SubCutaneous Start Date: 02/25/21 Status: Ordered dulaglutide (NILAM LICITY SUBQ) Inject under the skin 1 (one) time per week. Active Trulicity (dulag lutide injection pen) 1.5mg/0.5 ml 1.5mg / 0.5 ml one dose inject weekly Active Fish Oils (20 sources) Start: 03-05-2020 Fish Oil Oral Start [...] UNIT/ML 29 units Subcutaneous hs Active Humalog (9 sources) Insulin Analog Start: 03-05-2020 Humalog SubCutaneous, [...] 02/28/20 Status: Ordered [facility] daily at mealtime metFORMIN (Glucophage) 1,000 mg tablet Take 1 tablet (1,000 mg) by mouth 2 times a day with meals. Active take 2 tablets by mo [facility] once at breakfast, then take 1 tablet by mouth twice daily at dinner metFORMIN HCl ER 500 MG 2 tablet with breakfast and 1 tablet with dinner Orally BID Pt could not tolerate IR metformin d/t g/i s/e Active omega 6-pww-zre-fish oil (Fish OiL) 1,000 mg (120 mg-180 mg) capsule (1 source) take 2 capsules by mouth every other day omega 7-icu-wao-fish oil (Fish OiL) 1,000 mg (120 mg-180 mg) capsule Take 2 capsules (2,000 mg) by mouth every other day. Active 24 hr oxybutynin chloride 5 mg extended release oral tablet (1 source) Cholinergic Muscarinic Antagonist Start: End: take 1 tablet by mouth three times daily as needed for muscle spasms oxybutynin 5 mg ER Tab 5 mg = 1 tab(s), Oral, TID, PRN Other (see comment), Take PRN due to bladder spasms/discomfort., X 30 day(s), # 90 tab(s), Refills(s) 0, Pharmacy: [facility]/pharmacy #[id number], 168, cm, 04/28/23 10:08:00 EST, Height/Length Dosing, 93, kg, 04/28/23 10:08:00 EST, Weight Dosing Start Date: 10/05/23 Stop Date: 11/04/23 Status: Ordered 0.25 mg, 0.5 mg dose 1.5 ml semaglutide 1.34 mg/ml pen injector (3 sources) Start: Ozempic (0.25 or 0.5 MG/DOSE) 2 MG/1.5ML 0.5mg Subcutaneous once weekly Jul, Active simvastatin 40 mg oral tablet (20 sources) HMG-CoA Reductase Inhibitor Start: End: take 1 tablet by mouth once daily simvastatin 40 mg Tab 40 mg = 1 tab(s), Oral, Daily Start Date: 03/05/20 Status: Ordered sulfacetamide sodium 100 mg/ml ophthalmic solution (5 sources) Sulfonamide Antibacterial Start: 023 take 2 drop(s) into the eye(s) four [...] Daily, # 30 cap(s), Refills(s) 11, Pharmacy: [facility]/pharmacy #[id number], 168, cm, 02/25/22 9:50:00 EST, [...] 02/28/20 Status: Ordered take 1 tablet by [facility] every twenty-four hours Lisinopril 10 mg 1 tablet Orally daily Active [place] 6-Mrh-Dpl-Fish Oil (Fish Oil) 1,000 mg (120 mg-180 mg) capsule (3 sources) Start: 05-24-2023 End: 06-24-2023 take 1 capsule by mouth once daily [place] 2-Bri-Uhk-Fish Oil (Fish Oil) 1,000 mg (120 mg-180 mg) capsule Discontinued 1 CAP PO Daily May 24, 2023 12:00am June 24, 2023 1:40pm Start: 05-24-2023 take 1 capsule by mo [facility] once daily [place] 5-Vov-Ppp-Fish Oil (Fish Oil) 1,000 mg (120 mg-180 [...] without obstruction] Episodic Calculus of urinary tract (4 sources) Kidney stone; 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: [Calculus of kidney] Onset: 11-09-2023 05-24-2023 Episodic Coronary atherosclerosis and other heart [...] 02-28-2020 Chronic Genitourinary symptoms and ill-defined conditions (1 source) Procedure carried out on subject; 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: [Encounter for fitting and adjustment of urinary device] Onset: 11-09-2023 Chronic Genitourinary symptoms and ill-defined conditions (20 [...] Episodic Inflammatory conditions of male genital organs (19 sources) Chronic prostatitis; 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: [Chronic prostatitis] Onset: [...] sources) Long-term current use of insulin; 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: [intermediate designer (current) use of insulin] 05-24-2023 Episodic Other aftercare (6 sources) intermediate designer (current) use of insulin; 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: [intermediate designer (current) use of insulin (Multi)] Onset: 02-23-2023 Episodic Other aftercare (4 sources) Long-term current use of drug therapy; 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: [Other penitentiary (current) drug therapy] Episodic Other diseases of bladder and urethra (11 sources) Male urethral stricture; 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: [Unspecified urethral stricture, male, unspecified site] Onset: 04-28-2023 05-21-2020 Episodic Other diseases of kidney and ureters (5 sources) Acquired renal cyst without neoplastic change; 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: [Cyst of kidney, acquired] Onset: 08-26-2021 Episodic Other diseases of kidney and ureters (9 sources) Simple renal cyst 05-21-2020 Episodic Other injuries and conditions due to external causes (4 sources) History of fall; 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: [History of falling] Episodic Other injuries and conditions due to external causes (1 source) Foreign body in bladder; 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: [Foreign body in bladder, initial encounter] Onset: 11-09-2023 Episodic Other nutritional; endocrine; and metabolic disorders [...] cigarettes, in remission] Onset: 05-11-2016 Chronic Unclassified (9 sources) Asymptomatic microscopic hematuria 02-25-2021 Unclassified (9 sources) Finding of sensation of bladder 02-25-2021 Unclassified (6 sources) Patient encounter status 02-02-2023 Urinary tract [...] Test Name Value Interpretation Reference Range Facility Inpatient Patient Summaryon 11-09-2023 Inpatient Patient Summary Inpatient Patient Summary [place] [address] Clinical Summary Person Information Name: JOSEPH ESCALONA Age: 78 Years : 1945 Sex: Male PCP: DION GRIGGS DO Marital Status: Race: White Ethnicity: Non- or Language: Irish Visit Id: Visit Reason: BILATERAL URETERAL STONES Speciality: Acuity: Enc Type: Outpatient Med Service: Surgery Arrival: 11/09/2023 08:38:06 Discharge: Dispo Type: Address: [address] [place] [phone] Provider Notes: Diagnosis: Encounter for removal of ureteral stent; Foreign body in bladder; Ureteral stone Problems Active Screening PSA (prostate specific antigen) Incomplete bladder emptying Dysuria Asymptomatic microscopic hematuria Simple renal cyst BPH with urinary obstruction Urethral stricture in male Prostatitis, chronic Weak urine stream Benign prostatic hyperplasia with urinary retention Hyperlipidemia GEOVANNA (obstructive sleep apnea) ASHD (arteriosclerotic heart disease) Type 2 diabetes mellitus Gastro-esophageal reflux disease with esophagitis Hypertension Unilateral primary osteoarthritis, right knee Lower esophageal ring (Schatzki) Smoking Status: Functional Status: Sensory Deficits: History of Falls: Mobility Assistance Prior to Admission: ADLs: Current Level of Assistance for Self-Care/Mobility: Cognitive Status: Allergies No Known Allergies Laboratory or Other Results This Visit (last charted value for your 11/09/2023 visit) No Laboratory or Other Results This Visit Measurements: Height: 168 cm Weight: 93 kg Blood Pressure: Not Valued / Not Valued BMI: 32.95 kg/m2 Procedures No Procedures Documented Immunizations No Immunizations Documented This Visit Final Med List: amlodipine-benazepri l (amLODIPine-benazepr il 5 mg-20 mg Cap) aspirin (aspirin 81 mg oral tablet) every day. dulaglutide (Trulicity Pen 1.5 mg/0.5 mL subcutaneous solution) 1.5 Milligram Subcutaneous. glipiZIDE (glipiZIDE 10 mg Tab) 1 Tablets By Mouth every day. insulin lispro (Humalog) Subcutaneous As Directed. lisinopril (lisinopril 20 mg Tab) 1 Tablets By Mouth every day. metformin 1,000 Milligram By Mouth. omega-3 polyunsaturated fatty acids (Fish Oil) By Mouth. simvastatin (simvastatin 40 mg Tab) 1 Tablets By Mouth every day. Care Team Members: Attending Physician: Sara Bob MD Consulting Physician: Referring Physician: Sara Bob MD Follow up: With: Address: When: Sara Bob Comments: Call for any problems. Obtain renal US in 6-8 weeks. Will call for results Patient Education Information: EU - Cystoscopy with Stent Removal Discharge Instructions (CUSTOM) [facility] Main OR Intraoperative Recor don 11-09-2023 Main OR Intraoperative Record Main OR Intraoperative Record IntraOp Document Type FTURO Summary Primary Physician: Sara Bob MD Finalized Date/Time: 11/09/23 09:43:10 Pt. Name: JOSEPH ESCALONA/Sex: 1945 Male Med Rec #: [id number] Physician: Sara Bob MD Financial #: [id number] Pt. Type: O Room/Bed: / Admit/Disch: 11/09/23 08:38:06 - Institution: Case Times FTURO Entry 1 Patient Times In Room 11/09/23 09:30:00 Out Room 11/09/23 09:42:00 Procedure Times Start 11/09/23 09:36:00 Stop 11/09/23 09:39:00 Anesthesia Times Last Modified By: Daphne Sarkar 11/09/23 09:42:32 Case Attendance FTURO Entry 1 Entry 2 Entry 3 Case Attendee Paulino GAVIN, Daphne Martinez Laura C Role Performed Surgeon - Primary Upholstery Instructor - Primary Scrub - Primary Time In 11/09/23 09:30:00 11/09/23 09:30:00 11/09/23 09:30:00 Time Out 11/09/23 09:42:00 11/09/23 09:42:00 11/09/23 09:42:00 Procedure CYSTOSCOPY LOCAL WITH CYSTOSCOPY LOCAL WITH CYSTOSCOPY LOCAL WITH STENT REMOVAL(Bilateral) STENT REMOVAL(Bilateral) STENT REMOVAL(Bilateral) Comments Last Modified By: Daphne Sarkar Kelsie E Burgderfer, Kelsie E 11/09/23 09:42:33 11/09/23 09:42:33 11/09/23 09:42:33 Surgical Procedures FTURO Entry 1 Procedure Description Procedure CYSTOSCOPY LOCAL WITH Modifiers Bilateral STENT REMOVAL Surgeon Description CYSTO WITH BILATERAL STENT REMOVAL Primary Procedure Yes Primary Surgeon Sara Bob MD Start 11/09/23 09:36:00 Stop 11/09/23 09:39:00 Anesthesia Type Local Surgical Service Urology Wound Class 2 - Clean-Contaminated Last Modified By: Daphne Sarkar 11/09/23 09:40:07 General Case Data FTURO Pre-Care Text: Classifies surgical wound, implements aseptic technique, initiates traffic control Entry 1 Case Information OR URO 1 FT Case Level None Wound Class 2 - Clean-Contaminated Specialty Urology Preop Diagnosis BILATERAL URETERAL Postop Same As Preop Yes STONES Postop Diagnosis BILATERAL URETERAL Outcomes Met? Yes STONES Last Modified By: Daphne Sarkar 11/09/23 09:29:54 Post-Care Text: The patient is free from signs and symptoms of infection EU IntraOp - FTURO Pre-Care Text: Implements protective measures prior to operative or invasive procedure, confirms identity before the operative or invasive procedure, verifies operative procedure, surgical site, and laterality Entry 1 EU Perioperative Protocols Procedure(s) CYSTOSCOPY LOCAL WITH Patient Identity Birthday, ID Band STENT REMOVAL(Bilateral) Verified (select at Check, Patient least 2): Participation Consents / H and P H&P, Surgery/Procedure Operative Site N/A Verified Consent Marking Verified Surgical Site Yes Laterality Verified Yes Verified Procedure Verified Yes Correct Patient Yes Position Verified Availability Equipment, Medication Time Out Paulino GAVIN, Sara Loza, Verified (If Participants aDphne Sarkar, Applicable) Jayne Rodriguez Time Out Complete 11/09/23 09:35:00 Allergies Reviewed? Yes Allergies Reviewed Self/Patient With Body Position Supine Prep Area PENIS Prep Agents Betadine Solution Skin. Condition Unable to Visualize Description N/A Additional None Specimens Comment N/A Specimens Collected Vitals - EU Blood Pressure 149/81 Pulse 78 bpm Respirations 18 br/min SPO2 98 % EBL 0 I&O - EU Total Intake 0 mL Total Output 0 mL Outcomes Met? Yes Last Modified By: Daphne Sarkar 11/09/23 09:35:23 Post-Care Text: The patient is free from signs and symptoms of injury caused by extraneous objects Sign Out FTURO Entry 1 Before Patient Leaves OR Nurse verbally Yes Nurse verbally n/a confirms with the confirms with the team the name of team that the procedure(s) instrument, sponge, recorded and needle counts are correct (or N/A) Nurse verbally n/a Nurse verbally Yes confirms with the confirms with the team how the team whether there specimen is labeled are any equipment (including patient problems to be name), if applicable addressed Sign Out Complete 11/09/23 09:39:00 Last Modified By: Daphne Sarkar 11/09/23 09:40:01 Case Comments Finalized By: Daphne Sarkar Document Signatures Signed By: Daphne Sarkar 11/09/23 09:43 Daphne Sarkar 11/09/23 09:43 Daphne Sarkar 11/09/23 09:42 Daphne Sarkar 11/09/23 09:42 Daphne Sarkar 11/09/23 09:43 Daphne Sarkar 11/09/23 09:43 Normal [facility] Main OR Preoperative Recordo n 11-09-2023 Main OR Preoperative Record Main OR Preoperative Record Holding Area Document Type FTURO Summary Primary Physician: Sara Bob MD Finalized Date/Time: 11/09/23 09:30:25 Pt. Name: JOSEPH ESCALONA /Sex: 1945 Male Med Rec #: [id number] Physician: Sara Bob MD Financial #: [id number] Pt. Type: O Room/Bed: / Admit/Disch: 11/09/23 08:38:06 - Institution: Case Times Holding FTURO Pre-Care Text: Verifies consent for planned procedure, identifies individual values and wishes concerning care, includes family members in perioperative teaching Secures patient's records' belongings, and valuables, maintains patient's dignity and privacy, and maintains patient confidentiality Entry 1 In Holding 11/09/23 09:11:00 Outcomes Met? Yes Last Modified By: Clare Tovar LPN 11/09/23 09:11:05 Post-Care Text: The patient participates in decisions affecting his or her perioperative plan of care The patient's right to privacy is maintained Surgery Checklist FTURO Entry 1 Patient Birthday, ID Band Procedure History and Physical, Identification: Check, Patient Verification: Surgical Consent, With Participation Patient NPO after Midnight: n/a Limitations: up ad deirdre Complaints of Pain: No Skin Integrity Intact, [place], Warm, & Dry Vitals - EU Blood Pressure 149/81 Pulse 78 bpm Respirations 18 br/min SPO2 98 % Additional None RN Reviewed Yes Specimens Collected Last Modified By: Daphne Sarkar 11/09/23 09:30:21 Finalized By: Daphne Sarkar Document Signatures Signed By: Clare Tovar LPN 11/09/23 09:11 Daphne Sarkar 11/09/23 09:30 Daphne Sarkar 11/09/23 09:30 [facility] Operative Reporton Operative Report Operative Report Patient: JOSEPH ESCALONA Age: 78 years Sex: Male : 1945 Associated Diagnoses: None Author: Sara Bob MD Procedure Operative Information Details: Date/ Time: 11/09/2023 09:44:00. Pre-Op Dx: Encounter for removal of ureteral stent ([id number]-UG Z46.6, Discharge, Medical), Ureteral stone ([id number]-XR N20.1, Discharge, Medical) (History of ), Foreign Body in Bladder - T19.1XXA. Post-Op Dx: Same. Anesthesia Type: Local. Procedure: Local Cystoscopy with Stent Removal, Bilateral. Complications: None. Risks/Benefits/Infor med Consent: Surgical risks, benefits, details of the procedure have been explained to the patient, Full informed consent has been obtained. Intraoperative Information Prepped: The patient was placed in supine position, The patient was prepped with the Betadine solution. Anesthesia: 2% Xylocaine Jelly per urethra. Procedure: The flexible cystoscope was inserted into the bladder without difficulty. Mild strictures in bulbar urethra able to pass with scope. No bladder tumors or stones. Mild debris and 2+ trabeculations. Right ureteral stent removed in its entirety with flexible graspers without difficulty. Scope was reinserted and in a similar fashion the left stent was removed in its entirety. . Specimens Removed: None. Devices Implanted: None. Postoperative Information Discharge: The patient tolerated the procedure well and was subsequently discharged home, Obtain renal US in 6-8 weeks to ensure no silent obstruction. Call with results. Stone analysis still pending Follow up with established Urologist Dr. Rhodes for baseline urinary issues . Normal [facility] Comment on above: Result Comment: Elec tronically Signed By: Sara Bob MD\.br\Date and Time Signed: 11/09/23 09:48 EDT Outpatient Surgery Discharge Instructionon 11-09-2023 Outpatient Surgery Discharge Instruction Outpatient Surgery Discharge Instruction [address] [address] Patient Discharge Instructions PERSON INFORMATION Name: JOSEPH ESCALONA Date of : 1945 Current Date: 11/09/2023 09:43:54 PHYSICIANS Admitting Physician: Sara Bob MD Comment: Discharge Diagnosis: Encounter for removal of ureteral stent; Foreign body in bladder; Ureteral stone JOSEPH ESCALONA has been given the following list of follow-up instructions, prescriptions, and patient education materials: IF UNABLE TO CONTACT YOUR PHYSICIAN AND YOU FEEL IT IS AN EMERGENCY, GO TO THE NEAREST EMERGENCY ROOM OR CALL 911 Follow up: With: Address: When: Sara Bob Comments: Call for any problems. Obtain renal US in 6-8 weeks. Will call for results Comment: PATIENT EDUCATION INFORMATION Instructions: Cystoscopy with Stent Removal ? Voiding after the procedure: there may be some pain, burning, urgency, frequency and blood tinged urine following the procedure. These symptoms usually resolve within 2-5 days. Drink the amount of fluid it takes to keep the urine pink to yellow or clear in color. Drinking enough water and fluids will help to ease any discomfort after your procedure. ? If you are having problems that seem out of the ordinary, please call. ? If unable to contact your physician and you feel it is an emergency, go to the nearest emergency room or call 911 ? Diet ? you may resume your normal diet. ? Activity ? you may resume your normal activities ? Call if you have a fever over 100 degrees. I, JOSEPH ESCALONA, have received the attached patient education materials/instructio ns and have verbalized understanding: May we do a follow up call? Yes No I was present when discharge instructions were given Patient Signature Date Clinican/Nurse Signature Date You may receive a survey from [employer] asking you to rate your care experience. Your feedback is important and will help us understand what we do well and how we can improve the quality of care we provide to you, your loved ones and our community. It?s an honor to serve you. Thank you for choosing [facility] Normal [facility] Reminderson 07-27-2023 Reminders - From: Mayte Edmonds To: GARO Bob; Sent: 04/28/2023 10:39:26 EST Show up: 07/05/2023 10:39:00 EDT Subject: Schedule Urodynamics Due Date/Time: 08/05/2023 10:39:00 EDT Reminder/Recall Per [facility], patient needs to be scheduled to have Urodynamics done once she returns as of July. Will need to call patient prior to [facility]'s return to schedule, once [facility] provides the Urodynamics days/times for July. Called patient, no answer. LM to return call to the office. - From: Mayte Edmonds (GARO - Shawn Bob) To: Sara Bob MD; Sent: 07/22/2023 16:11:53 EDT ! Show up: 07/22/2023 16:11:00 EDT See message below from previous message created on 06/04/23. Patient is now being seen by Dr. Rhodes and no longer desires being seen in our office. From: Mayte Edmonds Sent: 06/04/2023 09:52:41 EDT Subject: Cancel Procedure Caller Name: JOSEPH ESCALONA; Caller Number: , B Patient called the PAC earlier today and was upset stating he wanted to cancel the upcoming urodynamics with [facility] on 06/21/23. Patient was advised that needed to be cancelled by a tile burner and began yelling at the PAC, stating [...] a call. Patient voiced his understanding. Normal [facility] Automated urine specific gra vity by refractometryon 06-29-2023 Specific gravity Refractometry automated (U) [Rel density] 1.025 1.005-1.025 [facility] Bilirubin Auto test strip (U ) [Mass/Vol]on 06-29-2023 Bilirubin (U) [Mass/Vol] Negative NEGATIVE [facility] Color Auto (U)on 06-29-2023 Color (U) YELLOW YELLOW [facility] Glucose [Mass/volume] in Uri ne by Test stripon 06-29-2023 Glucose Test strip (U) [Mass/Vol] Negative NEGATIVE [facility] Ketones Auto test strip (U) [Mass/Vol]on 06-29-2023 Ketones (U) [Mass/Vol] Negative NEGATIVE [facility] - Microbiology an d Antimicrobial susceptibilityOrdered By: Dion Griggs on 06-29-2023 Bacteria identified Cx Nom (U) [facility] Protein Auto test strip (U) [Mass/Vol]on 06-29-2023 Protein (U) [Mass/Vol] Negative NEG/TRACE [facility] Specific gravity Auto test s trip (U) [Rel density]on 06-29-2023 Specific gravity (U) [Rel density] SL CLOUDY CLEAR [facility] Urine hemoglobin detection b y automated test stripon 06-29-2023 Hemoglobin Auto test strip Ql (U) LARGE Abnormal NEGATIVE [facility] Urine nitrite detection by a utomated test stripon 06-29-2023 Nitrite Auto test strip Ql (U) SMALL Abnormal NEGATIVE [facility] Nitrite Auto test strip Ql (U) Positive Abnormal NEGATIVE [facility] Urobilinogen Auto test strip (U) [Mass/Vol]on 06-29-2023 Urobilinogen Qn (U) 0.2 {Raeann'U}/dL 0.2-1.0 [facility] pH Auto test strip (U)on pH (U) 5.5 [pH] 5.0-9.0 [facility] Coding Summaryon 06-24-2023 Coding Summary [employer]Base 64 UbdphdokPCn5vHi+PGhl YWQ+AX7RQEGlE86njPXj fH2qE0NESYfQSkbaQMKT NOuVApJehsKjWK5ijWBw ZXJu IC8+KS2dQVZlVyxbxSYe g9D6oNU6P09lhg9fTQbe fVY9XKDdMmZyhodsd2gm vGg6NCxbZyhqXzWi XIJuhM63YCQ5pD50Sa31 nPBihXPlb4egzPt9LjXe FJKoYDJ3iDrnMGtms5Ks LCYaA35utOKbn0Y0 IGNvbGxhcHNlOyBlbXB0 tU0cMGoldlkqc9kjnwjj Gmx4fi62nMYik3S7pJH3 C2TbetQ6YXEvhGGv SlrydKBJnR0xedbvx4ky krhbNgWdIDGdADs9WDd3 GFOicVoqKbCnAL61ZFC2 WVOpghHzE7XiOIGe fSqzIbM4e6W7Sm9JH0GB ItobO6ZTMCYBFWgijHK+ TX65om11G0RdJxmfCoi3 FJKuFGS7pVU1eR6x OPJmKSprb4G5bMO5X5Rn ubSkdt8pd3gbRWInOTvf E38ptBPnp3X4DVYjqIH7 CHPhoLtjDyHudN95 Oyc+YZEanGmtn1QdGwda o8vhp7wcwCn9YcllPICl eoMpzYbcJMS2n8KzXo5i BXHizIX9uCR4uE4g HzKpTdO9HTnqR898FpWx vSSdFjlsT40nM8IwdXB+ CRRqIhe3DWLfcKqjTM5o N0VvOJQgnttxyGJt aOggMZ0sXEQndfufKCJw uR2tLEGyY0s1TpHrWdC9 DIvcK6WsLMGbhkjjAh36 hY8aPqKfDvG8TMaz Y8YlmrB5CTWxkVVsQLms NUI6O77rq5L1HSTtVFIm KXD6cAE5xD2utHyouomx bGVmdDsgdmVydGlj BExySPbhQ209EVDkiGlg PkNvZGluZyBEYXRlOiAg MDQvMjUvMjAyNDwvdGQ+ JCIpVVM3uOvoINJl vINpPSgwCe9vgNzuqQtg DL1kJNYxpnhkRBCnnU5w CGMrsJXjjWwfAM1pTILm kwjum605BkUsQOY5 PHDtgYZzL8XnoP4tWeQk ZHOoUMFxS5YqtUBnWCiw K616GKfuDaV5LSAwdbLt X3QyTZVpvHdfMrX3 d0Y3Nx0Ds4FishloZ2Pm xQOeLaBgBkaaIQe5U7Oa PjwvdHI+TG81ZIOdFO65 BYw8VBY3uGdlEOee HYJvD0VicC6tYaLtLNDx ZGRkOyc+PHRhYmxlIHdp ZHRoPScxMDAlJyBzdHls PP8aHl4mZMFqGLJg gKrfyHKpPmGqj5lpOWDi ZFtjCM9yeEvyO8CnbCI8 IYMso3x8Vw06E16tR0Ju dXA+MKVrtQM9gIA8 sO4lBnOcFxB2IAxmH187 BzOdpBBpGknqy8lcv3rh eWv5IpF7XSKxwhRtgDdh KUO8v6ZcQu76K16q IHdpZHRoPSIxNSUiIHZh kVbmzs8exQ6bZe9+PGNv cPU7tSZ6mL3bZpSoQjB6 UTfmM274YpUlmCVf Ryefp2ubq4andRt7NaHx PIYgmmHfzYlxKRA2k6Ck Df95N0CzkCqbb8NrZll6 jc72rFMag2J2rNN1 W1WjFOOlzphqzEFxdBxv PX6kNCUzoqctJZMgpA6o AVOjT7r9ChTlPcT3HKwc O1ApwdX3EXHenNWv CAEqpBBEvE2voqkvq8rw txgyJhEqBDLnEIw4AHy4 TUSudYrdMzPvVII7SzL2 JEV1nSAyoA8xsBez vkevrA5qSve+NSE6xCMn bOEPDX0pQsvtvMO+PHRk ZMF1jWylHMhnCIYodE9l YJGlJ6n5CxFjIdD2 IBblZ2NtqlQ2AIPlnAPs IELmrHPTfF4btbcok3tw cyuoPhFkIEEtHKw9IIs3 LWFsaWduOiBsZWZ0 XhT9IKQ9mGZmxV3avWxp yhfbzZ7kGyq+QmlydGgg BVB9OPq0Q1InGtz2HHHv cYteCU4dzRNbOTzs Cy2usOsatLrnDD8jKUEa iasgq935ErOzb1rgVAQv lFOeICzyUZC2M85wu5B1 YANiWYTaANC8vKJ9 qU1qjJmslgottONihKmu jbMmyWiwUMcmCMtoD598 ELVoyBfrLaGuBYt9L6Lg Xvh9AKMgbWryEU1c fFPxHZwqHe3jzComjEvk BR5xRSGzpvrwq960GjSx w8zsIBUkeSInMMhwOHA6 I42uc2N8NXMxDUJr LUI7gOB2oY6ybAbgiyzg bGVmdDsgdmVydGljYWwt YUihK124AXConOahGcEd lCa0C0ZpVvu6VGKc qUbqBV7nlDGvZHesXr0a cBzvcUmjBB4sSMZcdgpr e622PnIgg2foHGWsxDCw ANloGPG5H37hl5E4 SGNqLAUhTHP7oUE4tF2u bGlnbjogbGVmdDsgdmVy xBkkIUdeCPneS799QALr cDsnPlBhdGllbnQg AReeVXp4K6YmAvmpwMR+ IZ61KIXlSR91uVAkjZWe y4imeAg9XjPsETMvDMV2 iAadDHdda6KiAWAz R51xcKSjv5D9OKEvfYgw sSGjFjVvnBX4cV6uAYpf mhtjh4tofxocAtexh2il wu61xO66A64wNDgt ZHRoPSIzMCUiIHZhbGln to6fqP7rDg2+PGNvbCB3 eIG3uC6iSCQkTjX7OBvp V825VaIwpMDsPolj b6nse0suoNh9FaI8ZKAs diYllGxlDWF5i8WoJw82 R88vPVzaNFChRZNvPOEm CEUijVtyfx3bkA2k Ii8+SYYpoDW3sKM8aR0n BqOnZrP0DWxpY742NiMi eQBpVvdoU83eN9RkqNC+ PAAcLbu9QMOkjFzb UJ2bpGDwPInsNd9lXVY5 CbVoXbXjVRvwA0CdJHJb pomvwztwnZL1GQWdPOZf vX71Oh3zeNwrTWOh uKHNeI2sbcglj2hlbadr EaYxUVLtPOw2JEm4FORb pRxtLyZvRUM2AtW2CIH2 xWAquY8caKigysxk kS4qF9GwSDIydkipMw59 uQ7kAtWoJxS8WKeqOae+ Fn3TNTRMLDRXBLOKERSl V2nVBXdYHOzyyAY+ JWSuNOA1mYihNWrkYEFf xR9lWQPjK8i2HpQiTbM7 RMilO3MzLFVmwsalRn99 dD7kOePgUkO0KKcq H3BjuxD6DVDgnPMoJJai VWC5Q66db6U3EKLsUDJf PJG1vZS8rX2opOhlrnvz bGVmdDsgdmVydGlj SYtwUAszV801LSEolLcx GfN2IfV3AtB8QTP8T2Fo Owj9HVSofTacNX9nlIVo BGbgEv9ylDwcyMml EY0pRGZppegiFCJyjZ3f VPTuoULclTvdQI6oRTGj muvau864PiZlMDO4JXXt lTNaV5FhjP3jQlMm JXCxHYZuO1HdlRSsHPmw G208QCorJeX8SIJomxIq Y3NkGFLqiFclFbY1y2S3 Zs47TYNUEFRgityx dGQ+UZFcPXB1oOiyWIwc RSPvrM8oXURpW1s9AaEr KjH5IGyhE9IiRVGmjeqj Ns60pP5nZvJsIxR9 BBwoL2RaxcQ9DQYnnVZk DNvmMOT4H64gc7A0HWIz GWEyPEA9iXT6aR4aoPdg bjogbGVmdDsgdmVy hWdzOPdwFEkzM046TLUt eGrvVp6AHYX3J8GcNke6 WGPhsKekRS9svDTxWWbb Eu9apPlpcEpnUC7y PQDaaqzoJSQblC8nCEJw sDYtqLyiUN4iKVCvvlqa y204WbAaOFM9DPOwaUGf L0OwtY7dGaAxJOKa JRSoC5SmsJRdXGudT306 CQljKeW3QZEajsErP9Qu JGMiiWdgFxX7l6X6Pr7I DYdlT7NqG3YohKwf dGQ+KJ52ff04V5FtTgaz Ayw4ZPUhZYA6rUJ1nF1l MNSpLDuth5Z0zLB4N4Em zrPixj3ai2ndLTAf PYfbX73cqQCus9L3PEQg xQX5MIKbpCidUjWoeR31 Oyc+IVFchPlvn5GiYjuv h4kci3mrnJb8WfIw FTNpqqAdrHkmFET5l8Ow Ca77Y43cCEggBRKmDRKs VHGsJYShsFspph1btC8i Ii8+DCWisGP3vHJ5 lS5sZmKpLrB7BIblY178 SzYecFLeFbuxs4khp7vs vBv8TwEiDGAwnmOxtXpu FND2i0GzZi22B6Au xWvge4GeJns6go44yNGf h5T5mVV4N2JvLVHduqvf hDPmiTeoAJ1sWZXjohup DULgqH3nVTKqD3a9 MnWyGqQ5HHwhV5IuzrU7 BFTsyBDiWVFhaSFSbK1v rznct2dbkzrxHnMmBFXb NEy0UKp9JEDrqFmk PdXmKUM7SxK3ZHG5qVPm hF3zkFjrgcrniR6gXvb+ BTj7r9rhgFIgMX8vaCK0 BZ51BX89rMXee0P7 yHA7K4XqXJFvsixbisbz hYG9YYQrSGUjnH82Zl7v tSkmIe6wMGWzYXX6NUIa gRWvR8OusV5kLxUm FCAoZYUaB1ScmWEaGVbj O020QEclGpC0CLVhlkXk F8KeRGKriRjxStU0s2V7 Rr5HZG26WJ88XS69 vXHys7J5iYX5L4FkFWBk aiajjkpsrKT6AVEsJZVz gG84Ii3xcKhdYg5jHCGs NPQ4MLAafAAhN6Vj aD7lEnDyNUQtFBBzT1Hl bLXtWDvvG181XIohVgO5 HQYvrzDeS1XyTBJpfUih QjE2i3W9Qt8OGm86 ZV25HO68kZOft3T9rGC3 N4IwMRLsxnonmmpbwCR1 EQWsHXMztW24Zp8ptDso Vy3mSSLxVPU1MHNt uQLtV0EuzW7iUaZcROJx BAYtW7MkjBEkVFubR610 UQyeTiA6FJGybdAjJ7Zb RMOljPtfFzF9c2O5 Ka9MPXlssct5V9QyGjgn dHI+QT22LHZnQI30tEIa dMAud1babUu4NuScTPNf AYL8jFihHXpxc2Oo ZXI (more content not included)... Normal [facility] HbA1c HPLC (Bld) [Mass fract ion]on 06-24-2023 HbA1c (Bld) [Mass fraction] 6.9 % [facility] No Panel Informationon 06-23 Bedside Glucose 103 [facility] Cholesterol in LDL Calc [Mas s/Vol]on 06-22-2023 Cholesterol in LDL [Mass/Vol] 40.2 mg/dL [facility] Comment on above: <100 mg/dl KEYIAXP24 0-129 mg/dl NEAR OR ABOVE CAGAPED376-093 mg/dl BORDERLINE YDXT857-604 mg/dl HIGH>190 mg/dl VERY HIGH Cholesterol in VLDL Calc [Ma ss/Vol]on 06-22-2023 Cholesterol in VLDL [Mass/Vol] 12.8 mg/dL [facility] Estimated glomerular filtrat ion rate (GFR) non- Americanon 06-22-2023 GFR/1.73 sq M.predicted among non-blacks MDRD (S/P/Bld) [Vol rate/Area] mL/min/{1.73_m2} >=60 [facility] Globulin Calc (S) [Mass/Vol] on 06-22-2023 Globulin (S) [Mass/Vol] 3.6 g/dL [facility] Laboratory - Chemistry and C hemistry - challengeon 06-22-2023 Albumin [Mass/Vol] 3.7 g/dL 3.4-5.[address] [facility] ALP [Catalytic activity/Vol] 48 U/L 46-116 [facility] ALT [Catalytic activity/Vol] 34 U/L 16-63 [facility] AST [Catalytic activity/Vol] 20 U/L 15-37 [facility] Bilirubin [Mass/Vol] 0.5 mg/dL 0.2-1.0 [facility] Calcium [Mass/Vol] 9.2 mg/dL 8.5-10.[address] [facility] Chloride [Moles/Vol] 106 mmol/L 98-107 [facility] Cholesterol [Mass/Vol] 102 mg/dL <=200 Fi [facility] Cholesterol in HDL [Mass/Vol] 49 mg/dL 40-60 [facility] Comment on above: > or =60 mg/dl - LOW CARDIOVASCULAR RISK<40 mg/dl - HIGH CARDIOVASCULAR RISK CO2 [Moles/Vol] 26.8 mmol/L 21.0-32.0 [facility] Cobalamin (Vitamin B12) [Mass/Vol] 456.0 pg/mL 193.0-986.0 [facility] Creatinine [Mass/Vol] 1.04 mg/dL 0.70-1.30 [facility] GFR/1.73 sq M.predicted MDRD (S/P/Bld) [Vol rate/Area] mL/min/{1.73_m2} >=60 [facility] Glucose [Mass/Vol] 82 mg/dL 74-[address] [facility] Potassium [Moles/Vol] 4.2 mmol/L 3.5-5.1 [facility] Protein [Mass/Vol] 7.3 g/dL 6.4-8.[address] [facility] Sodium [Moles/Vol] 143 mmol/L 136-[address] [facility] Triglyceride [Mass/Vol] 64 mg/dL <=150 [facility] Urea nitrogen [Mass/Vol] 19.0 mg/dL High 7.0-18.0 [facility] Urea nitrogen/Creatinine [Mass ratio] 18.3 mg/mg [facility] Microalbumin [Mass/volume] i n Urineon 06-22-2023 Albumin DL <= 20 mg/L (U) [Mass/Vol] 3.9 mg/dL <=30.0 [facility] No Panel Informationon 06-21 Urine Random Creatinine 136.06 mg/dL 20.0 0-300.0 0 [facility] Serum or plasma albumin/glob ulin mass ratioon 06-22-2023 Albumin/Globulin [Mass ratio] 1.0 {ratio} [facility] Serum or plasma anion gap de terminationon 06-22-2023 Anion gap [Moles/Vol] 14.4 mmol[facility] or plasma total choles terol/high density lipoprotein (HDL) cholesterol mass ceferino 06-22-2023 Cholesterol.total/Choles terol in HDL [Mass ratio] 2.1 {ratio} [facility] Comment on above: 3.3 - 4.4 LOW RISK4. 4 - 7.1 AVERAGE RISK7.1 - 11.0 MODERATE RISK>11.0 HIGH RISK Urine microalbumin/creatinin e mass ratioon 06-22-2023 Albumin/Creatinine DL <= 20 mg/L (U) [Mass ratio] 28.6 mg/g 0.0-29.9 [facility] Comment on above: NO MICROALBUMINURIA 0-29 MG/GCLINICAL MICROALBUMINURIA 30-300 MG/GMACROALBUMINURIA >300 MG/G Provider Orderson 06-18-2023 Provider Orders [id number]# [facility] Cons[facility] Formson 06-16-2023 Consent Forms [id number]#1. [facility]23 Inpatient Patient Summary [place] [id number] Patient Discharge Instructions Name: JOSEPH ESCALONA : 1945 Patient Address: [address] [place] [address] Primary Care Provider: Name: Gabriel Dion Dinesh After you are discharged if you find you have any questions, please, call [phone] ext [phone] to speak to a nurse. Discharge Diagnosis: [...] alcohol and/or drug addiction problems; contact the [facility] 21/09 Crisis Hotline -Text 4HTYD to 098936. If you received any narcotics, sedation, or [...] business decisions or sign any legal documents [facility] would like to thank you for allowing us to assist you with your healthcare needs. The following includes patient education materials and information regarding your injury/illness. JOSEPH ESCALONA has been given the following list of [...] healthy ch (more content not included)... Normal [facility] MAGR Intraoperative Recordon 06-15-2023 MAGR Intraoperative Record MAGR Intra-Op Record Summary Primary Physician: Ton Rhoeds MD Finalized Date/Time: 06/15/23 13:21:43 Pt. Name: JOSEPH ESCALONA/Sex: 1945 MALE Med Rec #: [id number] Physician: Ton Rhodes MD Financial #: [id number] Pt. Type: D Room/Bed: / Admit/Disch: 06/15/23 [...] MD, Erica RN Adkins, Brittany E CSFA TRANSIT OPERATOR Role Performed Surgeon - Primary Upholstery Instructor Canceling And Cutting Control Clerk Time In 06/15/23 13:16:00 06/15/23 13:12:00 06/15/23 13:12:00 Time Out 06/15/23 13:21:00 06/15/23 13:21:00 06/15/23 13:21:00 Procedure Cystoscopy Local Cystoscopy Local Cystoscopy Local Last Modified By: Parisa Vargas RN, Erica RN Baumer, Erica RN 06/15/23 13:21:22 06/15/23 13:21:22 06/15/23 13:21:22 Entry 4 Case Attendee Jerri Reynolds TRANSIT OPERATOR Role Performed Scrub Personnel Time In 06/15/23 [...] 13:16:00 Participants Parisa Vargas RN, Angeles Rothman TRANSIT OPERATOR, Jerri Reynolds TRANSIT OPERATOR Last Modified By: Parisa Vargas RN 06/15/23 [...] Area (Im.270) Perin (more content not included)... [facility] MAGR Preoperative Recordon 0 06-15-2023 MAGR Preoperative Record MAGR Pre-Op Rec ord Summary Primary Physician: Ton Rhodes MD Finalized Date/Time: 06/15/23 13:46:25 Pt. Name: JOSEPH ESCALONA/Sex: 1945 MALE Med Rec #: [id number] Physician: Ton Rhodes MD Financial #: [id number] Pt. Type: D Room/Bed: / Admit/Disch: 06/15/23 [...] Signed By: Guera Pascual RN 06/15/23 13:46 Normal [facility] Patient Handouton 06-15-2023 Patient Handout Normal [facility] ED Note-Physicianon 05-27-19 ED Note-Physician [id number] #1.00TIFF Normal [facility] Automated epithelial cells c ount in urine sediment (number/area)on 05-24-2023 Epithelial cells Auto (Urine sed) [#/Area] RARE #/LPF NONE/RARE [facility] Automated leukocytes count i n urine sediment (number/area)on 05-24-2023 WBC Auto (Urine sed) [#/Area] 50-75 #/HPF 0-2 [facility] Automated urine specific gra vity by refractometryon 05-24-2023 Specific gravity Refractometry automated (U) [Rel density] >=1.030 1.005-1.025 [facility] Basophils Auto (Bld) [#/Vol] on 05-24-2023 Basophils (Bld) [#/Vol] 0.0 10 3/uL 0.0-0.1 [facility] Basophils/100 WBC Auto (Bld) on 05-24-2023 Basophils/100 WBC (Bld) 0.4 % 0.2-2.0 [facility] Bilirubin Auto test strip (U ) [Mass/Vol]on 05-24-2023 Bilirubin (U) [Mass/Vol] Negative NEGATIVE [facility] Casts typing in urine sedime nt by light microscopyon 05-24-2023 Casts LM Nom (Urine sed) NONE SEEN #/LPF NONE S EEN [facility] Color Auto (U)on 05-24-2023 Color (U) YELLOW YELLOW [facility] Eosinophils/100 WBC Auto (Bl d)on 05-24-2023 Eosinophils/100 WBC (Bld) 1.1 % 0.9-7.0 [facility] Erythrocyte distribution wid th Auto (RBC) [Ratio]on 05-24-2023 Erythrocyte distribution width (RBC) [Ratio] 13.0 % 11.0-15.0 [facility] Estimated glomerular filtrat ion rate (GFR) non- Americanon 05-24-2023 GFR/1.73 sq M.predicted among non-blacks MDRD (S/P/Bld) [Vol rate/Area] mL/min/{1.73_m2} >=60 [facility] Globulin Calc (S) [Mass/Vol] on 05-24-2023 Globulin (S) [Mass/Vol] 4.0 g/dL [facility] Hematocrit Auto (Bld) [Volum e fraction]on 05-24-2023 Hematocrit (Bld) [Volume fraction] 40.9 % 42.0-54.0 [facility] Hemoglobin [Mass/volume] in Bloodon 05-24-2023 Hemoglobin (Bld) [Mass/Vol] 13.6 g/dL 14.0-18.0 [facility] Ketones Auto test strip (U) [Mass/Vol]on 05-24-2023 Ketones (U) [Mass/Vol] TRACE mg/dL NEGATIVE [facility] Laboratory - Chemistry and C hemistry - challengeon 05-24-2023 Albumin [Mass/Vol] 3.6 g/dL 3.4-5.[address] [facility] ALP [Catalytic activity/Vol] 63 U/L 46-116 [facility] ALT [Catalytic activity/Vol] 24 U/L 16-63 [facility] AST [Catalytic activity/Vol] 15 U/L 15-37 [facility] Bilirubin [Mass/Vol] 0.6 mg/dL 0.2-1.0 [facility] Calcium [Mass/Vol] 9.0 mg/dL 8.5-10.[address] [facility] Chloride [Moles/Vol] 102 mmol/L 98-107 [facility] CO2 [Moles/Vol] 26.5 mmol/L 21.0-32.0 [facility] Creatinine [Mass/Vol] 1.12 mg/dL 0.70-1.30 [facility] GFR/1.73 sq M.predicted MDRD (S/P/Bld) [Vol rate/Area] mL/min/{1.73_m2} >=60 [facility] Glucose [Mass/Vol] 213 mg/dL 74-[address] [facility] Lactate [Moles/Vol] 1.6 mmol/L 0.4-2.0 [facility] Lipase [Catalytic activity/Vol] 23.0 U/L 16.0-77.0 [facility] Potassium [Moles/Vol] 3.6 mmol/L 3.5-5.1 [facility] Protein [Mass/Vol] 7.6 g/dL 6.4-8.[address] [facility] Sodium [Moles/Vol] 140 mmol/L 136-[address] [facility] Urea nitrogen [Mass/Vol] 15.0 mg/dL 7.0-18.0 [facility] Urea nitrogen/Creatinine [Mass ratio] 13.4 mg/mg [facility] Laboratory - Hematology and Cell countson 05-24-2023 Immature granulocytes/100 WBC (Bld) 0.6 % 0.0-0.5 [facility] - Microbiology an d Antimicrobial susceptibilityon 05-24-2023 S. agalactiae Org specific cx Ql (Vag fld) Not detected NOT DETECTE [facility] Leukocytes [#/volume] correc bethany for nucleated erythrocytes in Blood by Automated counon 05-24-2023 WBC corrected for nucl RBC Auto (Bld) [#/Vol] 10.8 10 3/uL 4.0-11.0 [facility] Lymphocytes Auto (Bld) [#/Vo l]on 05-24-2023 Lymphocytes (Bld) [#/Vol] 0.8 10 3/uL 1.2-3.8 [facility] Lymphocytes/100 WBC Auto (Bl d)on 05-24-2023 Lymphocytes/100 WBC (Bld) 7.4 % 20.5-60.0 [facility] MCH Auto (RBC) [Entitic mass ]on 05-24-2023 MCH (RBC) [Entitic mass] 28.8 pg 25.9-34.0 [facility] MCHC Auto (RBC) [Mass/Vol]on 05-24-2023 MCHC (RBC) [Mass/Vol] 33.3 g/dL 29.9-35.2 [facility] MCV Auto (RBC) [Entitic vol] on 05-24-2023 MCV (RBC) [Entitic vol] 86.5 fL 80.0-94.0 [facility] Monocytes Auto (Bld) [#/Vol] on 05-24-2023 Monocytes (Bld) [#/Vol] 1.1 10 3/uL 0.3-0.8 [facility] Monocytes/100 WBC Auto (Bld) on 05-24-2023 Monocytes/100 WBC (Bld) 9.9 % 1.7-12.0 [facility] Mucus LM Ql (Urine sed)on Mucus Ql (Urine sed) MODERATE NONE SEEN [facility] Neutrophils Auto (Bld) [#/Vo l]on 05-24-2023 Neutrophils (Bld) [#/Vol] 8.8 10 3/uL 1.4-6.5 [facility] Neutrophils/100 WBC Auto (Bl d)on 05-24-2023 Neutrophils/100 WBC (Bld) 80.6 % 43.0-75.0 [facility] No Panel Informationon 05-23 Urine Culture Reflexed YES [facility] Urine Microscopic Review YES [facility] A.calcoaceticus-baumanni i cmplx PCR Not detected NOT DETECTE [facility] Bacteroides fragilis (PCR) Not detected NOT DETECTE [facility] Blood Culture Source blood [facility] Jhoana albicans (PCR) Not detected NOT DETECTE [facility] Jhoana auris (PCR) Not detected NOT DETECTE [facility] Jhoana glabrata (PCR) Not detected NOT DETECTE [facility] Jhoana krusei (PCR) Not detected NOT DETECTE [facility] Jhoana parapsilosis (PCR) Not detected NOT DETECTE [facility] Jhoana tropicalis (PCR) Not detected NOT DETEC [facility] Crypto neoformans/gattii (PCR)(LAB) Not detected NOT DETECTE [facility] CTX-M ESBL (PCR) NOT APPLICABLE NOT DETECTE [facility] Enterobacter cloacae complex (PCR) Not detected NOT DETECTE [facility] Enterobacterales (PCR) Not detected NOT DETECTE [facility] Enterococcus faecalis PCR Not detected NOT DETECTE [facility] Enterococcus faecium PCR Not detected NOT DETEC [facility] Escherichia coli Result Not detected NOT DETECT E [facility] Haemophilus influenzae DNA Not detected NOT DETECTE [facility] IMP (blaIMP) Carbap Res Gene (PCR) NOT APPLICABLE NOT DETECTE [facility] Klebsiella aerogenes (PCR) Not detected NOT DETECTE [facility] Klebsiella oxytoca (PCR) Not detected NOT DETEC [facility] Klebsiella pneumoniae group (PCR) Not detected NOT DETECTE [facility] KPC (blaKPC) Detection (PCR) NOT APPLICABLE NOT DETECTE [facility] Listeria monocytogenes (PCR) Not detected NOT DETECTE [facility] MCR-1 Resistance Gene NOT APPLICABLE NOT DETECT E [facility] mecA/C & MREJ Antimicrob Resist Gen NOT APPLICABLE NOT DETECTE [facility] mecA/C-Methicillin Resistance Gene NOT APPLICABLE NOT DETECTE [facility] NDM (blaNDM) Detection (PCR) NOT APPLICABLE NOT DETECTE [facility] Neisseria meningitidis (PCR) Not detected NOT DETECTE [facility] Proteus species (PCR) Not detected NOT DETECTE [facility] Pseudomonas aeruginosa (PCR) Not detected NOT DETECTE [facility] Salmonella spp. (PCR) Not detected NOT DETECTE [facility] Serratia marcescens (PCR) Not detected NOT DETECTE [facility] Staphylococcus aureus (PCR)(LAB) Not detected NOT DETECTE [facility] Staphylococcus epidermidis (PCR) Not detected NOT DETECTE [facility] Staphylococcus lugdunensis (TEM-PCR Not detected NOT DETECTE [facility] Staphylococcus species (PCR) Not detected NOT DETECTE [facility] Stenotroph. maltophilia (PCR) Not detected NOT DETECTE [facility] Streptococcus pneumoniae (PCR) Not detected NOT DETECTE [facility] Streptococcus pyogenes (PCR)(LAB) Not detected NOT DETECTE [facility] Streptococcus species (PCR) Not detected NOT DETECTE [facility] Syn OXA-48-like Carb Res Gene (PCR) NOT APPLICABLE NOT DETECTE [facility] Regina/B-Vancomycin Resistance Genes NOT APPLICABLE NOT DETECTE [facility] VIM (blaVIM) Carbap Res Gene (PCR) NOT APPLICABLE NOT DETECTE [facility] Eosinophils # (Auto) 0.1 10 3/uL 0.0-0.7 [facility] Immature Granulocyte # (Auto) 0.06 10 3/uL 0.00-0.03 [facility] No Panel InformationOrdered By: Dion Griggs on 05-24-2023 Blood Culture 2 [facility] Blood Culture 1 [facility] Platelet mean volume Auto (B ld) [Entitic vol]on 05-24-2023 Platelet mean volume (Bld) [Entitic vol] 8.8 fL 9.5-13.5 [facility] Platelets Auto (Bld) [#/Vol] on 05-24-2023 Platelets (Bld) [#/Vol] 244 10 3/uL 150-450 [facility] Protein Auto test strip (U) [Mass/Vol]on 05-24-2023 Protein (U) [Mass/Vol] 30 mg/dL NEG/TRACE Fi [facility] RBC Auto (Bld) [#/Vol]on RBC (Bld) [#/Vol] 4.73 10 6/uL 4.70-6.10 [facility] Serum or plasma albumin/glob ulin mass ratioon 05-24-2023 Albumin/Globulin [Mass ratio] 0.9 {ratio} [facility] Serum or plasma anion gap de terminationon 05-24-2023 Anion gap [Moles/Vol] 15.1 mmol/L Fi [facility] Specific gravity Auto test s trip (U) [Rel density]on 05-24-2023 Specific gravity (U) [Rel density] CLEAR CLEAR [facility] Urine bacteria detection by automated methodon 05-24-2023 Bacteria Auto Ql (U) SMALL #/HPF NONE SEEN [facility] Urine glucose measurement by test strip (mass/volume)on 05-24-2023 Glucose Test strip (U) [Mass/Vol] >=1000 mg/dL NEGATIVE [facility] Urine hemoglobin detection b y automated test stripon 05-24-2023 Hemoglobin Auto test strip Ql (U) LARGE NEGATIVE [facility] Urine nitrite detection by a utomated test stripon 05-24-2023 Nitrite Auto test strip Ql (U) TRACE NEGATIVE [facility] Nitrite Auto test strip Ql (U) Negative NEGATIVE [facility] Urine sediment crystal ident ification by light microscopyon 05-24-2023 Crystals LM Nom (Urine sed) None Seen #/HPF None Seen [facility] Urine sediment leukocyte cou nt by microscopy (number/high power field)on 05-24-2023 WBC LM.HPF (Urine sed) [#/Area] 5-10 #/HPF NONE SEEN [facility] Urobilinogen Auto test strip (U) [Mass/Vol]on 05-24-2023 Urobilinogen Qn (U) 0.2 {Raeann'U}/dL 0.2-1.0 [facility] pH Auto test strip (U)on pH (U) 5.5 [pH] 5.0-9.0 [facility] Automated epithelial cells c ount in urine sediment (number/area)on 05-20-2023 Epithelial cells Auto (Urine sed) [#/Area] NONE SEEN #/LPF NONE/RARE [facility] Automated leukocytes count i n urine sediment (number/area)on 05-20-2023 WBC Auto (Urine sed) [#/Area] 5-10 #/HPF 0-2 [facility] Automated urine specific gra vity by refractometryon 05-20-2023 Specific gravity Refractometry automated (U) [Rel density] 1.025 1.005-1.025 [facility] Basophils Auto (Bld) [#/Vol] on 05-20-2023 Basophils (Bld) [#/Vol] 0.1 10 3/uL 0.0-0.1 [facility] Basophils/100 WBC Auto (Bld) on 05-20-2023 Basophils/100 WBC (Bld) 0.6 % 0.2-2.0 [facility] Bilirubin Auto test strip (U ) [Mass/Vol]on 05-20-2023 Bilirubin (U) [Mass/Vol] Negative NEGATIVE [facility] Casts typing in urine sedime nt by light microscopyon 05-20-2023 Casts LM Nom (Urine sed) NONE SEEN #/LPF NONE S EEN [facility] Color Auto (U)on 05-20-2023 Color (U) YELLOW YELLOW [facility] Eosinophils/100 WBC Auto (Bl d)on 05-20-2023 Eosinophils/100 WBC (Bld) 0.9 % 0.9-7.0 [facility] Erythrocyte distribution wid th Auto (RBC) [Ratio]on 05-20-2023 Erythrocyte distribution width (RBC) [Ratio] 13.2 % 11.0-15.0 [facility] Estimated glomerular filtrat ion rate (GFR) non- Americanon 05-20-2023 GFR/1.73 sq M.predicted among non-blacks MDRD (S/P/Bld) [Vol rate/Area] mL/min/{1.73_m2} >=60 [facility] Globulin Calc (S) [Mass/Vol] on 05-20-2023 Globulin (S) [Mass/Vol] 3.7 g/dL [facility] Hematocrit Auto (Bld) [Volum e fraction]on 05-20-2023 Hematocrit (Bld) [Volume fraction] 42.2 % 42.0-54.0 [facility] Hemoglobin [Mass/volume] in Bloodon 05-20-2023 Hemoglobin (Bld) [Mass/Vol] 14.2 g/dL 14.0-18.0 [facility] Ketones Auto test strip (U) [Mass/Vol]on 05-20-2023 Ketones (U) [Mass/Vol] TRACE mg/dL NEGATIVE [facility] Laboratory - Chemistry and C hemistry - challengeon 05-20-2023 Albumin [Mass/Vol] 3.8 g/dL 3.4-5.[address] [facility] ALP [Catalytic activity/Vol] 55 U/L 46-116 [facility] ALT [Catalytic activity/Vol] 35 U/L 16-63 [facility] AST [Catalytic activity/Vol] 17 U/L 15-37 [facility] Bilirubin [Mass/Vol] 0.6 mg/dL 0.2-1.0 [facility] Calcium [Mass/Vol] 8.6 mg/dL 8.5-10.[address] [facility] Chloride [Moles/Vol] 101 mmol/L 98-107 [facility] CO2 [Moles/Vol] 25.2 mmol/L 21.0-32.0 [facility] Creatinine [Mass/Vol] 1.02 mg/dL 0.70-1.30 [facility] GFR/1.73 sq M.predicted MDRD (S/P/Bld) [Vol rate/Area] mL/min/{1.73_m2} >=60 [facility] Glucose [Mass/Vol] 228 mg/dL 74-[address] [facility] Lactate [Moles/Vol] 2.1 mmol/L 0.4-2.0 [facility] Lipase [Catalytic activity/Vol] 73.0 U/L 16.0-77.0 [facility] Potassium [Moles/Vol] 3.9 mmol/L 3.5-5.1 [facility] Protein [Mass/Vol] 7.5 g/dL 6.4-8.[address] [facility] Sodium [Moles/Vol] 137 mmol/L 136-[address] [facility] Urea nitrogen [Mass/Vol] 15.0 mg/dL 7.0-18.0 [facility] Urea nitrogen/Creatinine [Mass ratio] 14.7 mg/mg [facility] Laboratory - Hematology and Cell countson 05-20-2023 Immature granulocytes/100 WBC (Bld) 0.6 % 0.0-0.5 [facility] - Microbiology an d Antimicrobial susceptibilityOrdered By: Dion Griggs on 05-20-2023 Bacteria identified Cx Nom (U) [facility] Leukocytes [#/volume] correc bethany for nucleated erythrocytes in Blood by Automated counon 05-20-2023 WBC corrected for nucl RBC Auto (Bld) [#/Vol] 9.9 10 3/uL 4.0-11.0 [facility] Lymphocytes Auto (Bld) [#/Vo l]on 05-20-2023 Lymphocytes (Bld) [#/Vol] 0.9 10 3/uL 1.2-3.8 [facility] Lymphocytes/100 WBC Auto (Bl d)on 05-20-2023 Lymphocytes/100 WBC (Bld) 9.1 % 20.5-60.0 [facility] MCH Auto (RBC) [Entitic mass ]on 05-20-2023 MCH (RBC) [Entitic mass] 29.2 pg 25.9-34.0 [facility] MCHC Auto (RBC) [Mass/Vol]on 05-20-2023 MCHC (RBC) [Mass/Vol] 33.6 g/dL 29.9-35.2 [facility] MCV Auto (RBC) [Entitic vol] on 05-20-2023 MCV (RBC) [Entitic vol] 86.8 fL 80.0-94.0 [facility] Monocytes Auto (Bld) [#/Vol] on 05-20-2023 Monocytes (Bld) [#/Vol] 0.9 10 3/uL 0.3-0.8 [facility] Monocytes/100 WBC Auto (Bld) on 05-20-2023 Monocytes/100 WBC (Bld) 9.1 % 1.7-12.0 [facility] Mucus LM Ql (Urine sed)on Mucus Ql (Urine sed) NONE SEEN NONE SEEN [facility] Neutrophils Auto (Bld) [#/Vo l]on 05-20-2023 Neutrophils (Bld) [#/Vol] 7.9 10 3/uL 1.4-6.5 [facility] Neutrophils/100 WBC Auto (Bl d)on 05-20-2023 Neutrophils/100 WBC (Bld) 79.7 % 43.0-75.0 [facility] No Panel InformationOrdered By: Dion Griggs on 05-20-2023 Blood Culture 2 [facility] Blood Culture 1 [facility] No Panel Informationon 05-19 Eosinophils # (Auto) 0.1 10 3/uL 0.0-0.7 [facility] Immature Granulocyte # (Auto) 0.06 10 3/uL 0.00-0.03 [facility] Urine Culture Reflexed YES [facility] Urine Microscopic Review YES [facility] Platelet mean volume Auto (B ld) [Entitic vol]on 05-20-2023 Platelet mean volume (Bld) [Entitic vol] 8.5 fL 9.5-13.5 [facility] Platelets Auto (Bld) [#/Vol] on 05-20-2023 Platelets (Bld) [#/Vol] 276 10 3/uL 150-450 [facility] Protein Auto test strip (U) [Mass/Vol]on 05-20-2023 Protein (U) [Mass/Vol] 30 mg/dL NEG/TRACE [facility] RBC Auto (Bld) [#/Vol]on RBC (Bld) [#/Vol] 4.86 10 6/uL 4.70-6.10 [facility] Serum or plasma albumin/glob ulin mass ratioon 05-20-2023 Albumin/Globulin [Mass ratio] 1.0 {ratio} [facility] Serum or plasma anion gap de terminationon 05-20-2023 Anion gap [Moles/Vol] 14.7 mmol/L [facility] Specific gravity Auto test s trip (U) [Rel density]on 05-20-2023 Specific gravity (U) [Rel density] CLEAR CLEAR [facility] Urine bacteria detection by automated methodon 05-20-2023 Bacteria Auto Ql (U) MODERATE #/HPF NONE SEEN [facility] Urine glucose measurement by test strip (mass/volume)on 05-20-2023 Glucose Test strip (U) [Mass/Vol] >=1000 mg/dL NEGATIVE [facility] Urine hemoglobin detection b y automated test stripon 05-20-2023 Hemoglobin Auto test strip Ql (U) LARGE NEGATIVE [facility] Urine nitrite detection by a utomated test stripon 05-20-2023 Nitrite Auto test strip Ql (U) TRACE NEGATIVE [facility] Nitrite Auto test strip Ql (U) Positive NEGATIVE [facility] Urine sediment crystal ident ification by light microscopyon 05-20-2023 Crystals LM Nom (Urine sed) None Seen #/HPF None Seen [facility] Urine sediment leukocyte cou nt by microscopy (number/high power field)on 05-20-2023 WBC LM.HPF (Urine sed) [#/Area] 5-10 #/HPF NONE SEEN [facility] Urobilinogen Auto test strip (U) [Mass/Vol]on 05-20-2023 Urobilinogen Qn (U) 0.2 {Raeann'U}/dL 0.2-1.0 [facility] pH Auto test strip (U)on pH (U) 5.5 [pH] 5.0-9.0 [facility] ED Note-Physicianon 05-09-19 ED Note-Physician [id number] #1.00TIFF Normal [facility] Automated epithelial cells c ount in urine sediment (number/area)on 05-04-2023 Epithelial cells Auto (Urine sed) [#/Area] FEW #/LPF NONE/RARE [facility] Automated leukocytes count i n urine sediment (number/area)on 05-04-2023 WBC Auto (Urine sed) [#/Area] 5-10 #/HPF 0-2 [facility] Automated urine sediment negra cium oxalate crystal count by microscopy (number/high powon 05-04-2023 Calcium oxalate crystals LM.HPF (Urine sed) [#/Area] RARE [facility] Automated urine specific gra vity by refractometryon 05-04-2023 Specific gravity Refractometry automated (U) [Rel density] 1.025 1.005-1.025 [facility] Bilirubin Auto test strip (U ) [Mass/Vol]on 05-04-2023 Bilirubin (U) [Mass/Vol] Negative NEGATIVE [facility] Casts typing in urine sedime nt by light microscopyon 05-04-2023 Casts LM Nom (Urine sed) NONE SEEN #/LPF NONE S EEN [facility] Color Auto (U)on 05-04-2023 Color (U) LT. YELLOW YELLOW [facility] Ketones Auto test strip (U) [Mass/Vol]on 05-04-2023 Ketones (U) [Mass/Vol] TRACE mg/dL NEGATIVE [facility] Mucus LM Ql (Urine sed)on Mucus Ql (Urine sed) NONE SEEN NONE SEEN [facility] Protein Auto test strip (U) [Mass/Vol]on 05-04-2023 Protein (U) [Mass/Vol] 30 mg/dL NEG/[facility] Specific gravity Auto test s trip (U) [Rel density]on 05-04-2023 Specific gravity (U) [Rel density] CLEAR CLEAR [facility] Urine bacteria detection by automated methodon 05-04-2023 Bacteria Auto Ql (U) MODERATE #/HPF NONE SEEN [facility] Urine glucose measurement by test strip (mass/volume)on 05-04-2023 Glucose Test strip (U) [Mass/Vol] 100 mg/dL NEGATIVE [facility] Urine hemoglobin detection b y automated test stripon 05-04-2023 Hemoglobin Auto test strip Ql (U) LARGE NEGATIVE [facility] Urine nitrite detection by a utomated test stripon 05-04-2023 Nitrite Auto test strip Ql (U) LARGE NEGATIVE [facility] Nitrite Auto test strip Ql (U) Positive NEGATIVE [facility] Urine sediment crystal ident ification by light microscopyon 05-04-2023 Crystals LM Nom (Urine sed) Seen #/HPF None Seen [facility] Urine sediment leukocyte cou nt by microscopy (number/high power field)on 05-04-2023 WBC LM.HPF (Urine sed) [#/Area] 20-50 #/HPF NONE SEEN [facility] Urobilinogen Auto test strip (U) [Mass/Vol]on 05-04-2023 Urobilinogen Qn (U) 0.2 {Raeann'U}/dL 0.2-1.0 [facility] pH Auto test strip (U)on pH (U) 5.5 [pH] 5.0-9.0 [facility] Operative Reporton 4 Operative Report [id number] 8#1.00TIFF Normal [facility] Screenson 04-29-2023 Screens [id number] 9#1.00TIFF Normal [facility] Screens [id number] 1#1.00TIFF Normal [facility] Ambulatory Visit Summaryon 0 04-28-2023 Ambulatory Visit Summary JOSEPH ESCALONA :1945 Visit Date:04/28/2023 Ambulatory Visit Instructions Your Diagnosis Incomplete bladder emptying BPH with urinary obstruction Urethral stricture in male Asymptomatic microscopic hematuria Screening PSA (prostate specific antigen) Simple renal cyst Your Care Team Attending Physician - Sara Bob MD Primary Care Physician - DION GRIGGS DO [...] When: Comments: sched urodynamics Where: [address] [place] [address] [phone] Medications What How Much When Instructions Unchanged [...] d (more content not included)... Normal [facility] Patient Educationon 04-28-19 Patient Education Urology Urodynamic [...] including vitamins, herbs, eye drops, creams, and udcp-fva-hjdauwm medicines. ? Whether you are or may [...] results be (more content not included)... Normal [facility] Urology Office/Clinic Noteon 04-28-2023 Urology [...] prostate) P (more content not included)... Normal [facility] Comment on above: Result Comment: Elec tronically Signed By: Sara Bob MD\.br\Date and Time Signed: 04/28/23 11:12 EST\.br\Electronically Co-Signed By: Deborah Torrse\.br\Date and Time Co-Signed: 04/28/23 10:44 EST Operative Reporton 4 Operative Report [id number] 5#1.00TIFF Normal [facility] Consent for Procedure/Surger yon 03-18-2023 Consent for Procedure/Surgery [id number] #1.00TIFF Normal [facility] Screenson 02-03-2023 Screens [id number] #1.00TIFF Normal [facility] Screens [id number] #1.00TIFF Normal [facility] Ambulatory Visit Summaryon 1 04-05-2022 Ambulatory Visit Summary JOSEPH ESCALONA :1945 Visit Date:02/02/2023 Ambulatory Visit Instructions Your Diagnosis BPH with urinary obstruction Incomplete bladder emptying Screening PSA (prostate specific antigen) Asymptomatic microscopic hematuria Simple renal cyst Tests Performed Urnls Dip Stick Auto w/o Microscopy POC 87018 Your Care Team Attending Physician - ANGELI [...] When: Comments: sched cysto/TRUS Where: [address] [place] [address] [phone] Medications What How Much When Instructions Unchanged [...] Urnls Dip Stick Auto w/o Microscopy POC 05393 (02/02/2023) Bilirubin Urine Dipstick - Negative Blood Urine Dipstick - Trace-intact Glucose Urine Dipstick - 2+ 500 mg/dl Ketones Urine Dipstick - Negative Leukocytes Urine Dipstick - Negative Nitrite Urine Dipstick - Negative Protein Urine Dipstick - Negative Specific [place] Urine Dipstick - 1.025 Urine Appearance Urine [...] when yo (more content not included)... Normal [facility] Urology Office/Clinic Noteon 02-02-2023 Urology [...] When Contact Information ANGELI GUY PA-C, URL [address] [address] [phone] Additional Instructions: sched cysto/TRUS Patient Education Cystoscopy Documentation recorded by the scribdinesh Torres accurately reflects the services(s) I performed [...] mg oral (more content not included)... Normal [facility] Comment on above: Result Comment: Elec tronically Signed By: ANGELI GUY PA-C\.br\Date and Time Signed: 02/02/23 15:07 EST\.br\Electronically Co-Signed By: Deborah Torres\.br\Date and Time Co-Signed: 02/02/23 14:51 EST A1C HEMOGLOBINon 12-15-2022 HbA1c (Bld) [Mass fraction] 7.0 % [employer] Other Glucose - FINGER STICKon Glucose [Mass/Vol] 119 mg/dL [employer] Other HbA1c (Bld) [Mass fraction]o n 12-15-2022 A1C HEMOGLOBIN Jayson su Certess Other Office Visit (Cardiology)on 06-30-2022 Follow-up visit [...] managed by diabetes clinic at [facility], recent A1c 7.2 4. Obesity. Encouraged more [...] point out cardiac cause. Jaleesa Conn MD, [facility] Surgical History Problems History of [...] Recorded: 30Jun2022 11:20AM Heart Rate96, L Radial Uemjyznl425, LUE, Sitting Zswpcgdft61, LUE, Sitting Height5 ft 6 in Sfkoag511 lb BMI Sycrneeqge92.77 kg/m2 BSA Calculated2.01 Tobacco Useb) No PHQ-2 #1. Over the last 2 weeks have you felt down, depressed or hopeless? (If yes, answer PHQ-9 below)No PHQ-2 #2. Over the last 2 weeks have you felt little interest or pleasure (more content not included)... Normal [employer] Tobacco Screening.on 023 Adult depression screening assessment No [facility] [employer] DO Work Phone: Fall risk assessment a) No falls within the last year [facility] bttn 250 DO Work Phone: Tobacco use status CPHS b) No M [facility] irisnote DO Work Phone: A1C HEMOGLOBINon 06-15-2022 HbA1c (Bld) [Mass fraction] 7.1 % [employer] Other Glucose - FINGER STICKon Glucose [Mass/Vol] 133 mg/dL [employer] Other HbA1c (Bld) [Mass fraction]o n 06-15-2022 A1C HEMOGLOBIN [facility] Other LIPID PROFILEon 06-10-2022 CHOL-HDL RATIO NORM SEE BELOW Normal [facility] Comment on above: Result Comment: 3.3 - 4.4 LOW RISK 4.4 - 7.1 AVERAGE RISK 7.1 - 11.0 MODERATE RISK >11.0 HIGH RISK Performed By: #### C , LIPID #### [facility] [address] [place] [address] Dr. Kim Roper Cholesterol [Mass/Vol] 132 mg/dL Normal <=200 Th [facility] Comment on above: Performed By: #### C MP, LIPID #### [facility] [address] [address] [address] Kim Roper Cholesterol in HDL [Mass/Vol] 47 mg/dL Normal 40-60 [facility] Comment on above: Performed By: #### C MP, LIPID #### [facility] [address] [address] [address] Kim Roper Cholesterol in LDL [Mass/Vol] 63.2 mg/dL Normal [facility] Comment on above: Performed By: #### C MP, LIPID #### [facility] [address] [address] [address] Kim Roper Cholesterol.total/Choles terol in HDL [Mass ratio] 2.8 {ratio} Normal [facility] Comment on above: Performed By: #### C MP, LIPID #### [facility] [address] [place] [address] Dr. Kim Roper HDL NORMAL > or = 60 mg/dl - LOW CARDIOVASCULAR RISK <40 mg/dl - HIGH CARDIOVASCULAR RISK Normal [facility] Comment on above: Performed By: #### C MP, LIPID #### [facility] [address] [place] [address] Dr. Kim Roper LDL CALC NORMAL SEE BELOW Normal [facility] Comment on above: Result Comment: <100 mg/dl OPTIMAL 100 - 129 mg/dl NEAR OR ABOVE OPTIMAL 130 - 159 mg/dl BORDERLINE HIGH 160 - 189 mg/dl HIGH >190 mg/dl VERY HIGH Performed By: #### C MP, LIPID #### [facility] [address] [address] [address] Kim Roper Triglyceride [Mass/Vol] 109 mg/dL Normal <=150 T [facility] Comment on above: Performed By: #### C MP, LIPID #### [facility] [address] [address] [address] Kim Roper VLDL CALC 21.8 mg/dL Normal [facility] Comment on above: Performed By: #### C MP, LIPID #### [facility] [address] [place] [address] Dr. Kim Roper MICROALB CREAT RATIO RANDOMo n 06-10-2022 mALB <1.3 Normal <=30.0 [facility] Comment on above: Performed By: #### M CRR #### [facility] [address] [address] [address] Kim Roper URINE CREAT 109.64 mg/dL Normal 20.00-300.0 0 [facility] Comment on above: Performed By: #### M CRR #### [facility] [address] [place] [address] Dr. Kim Roper PROF 14(COMP METB)on 023 Albumin [Mass/Vol] 3.7 g/dL Normal 3.4-5.0 [facility] Comment on above: Performed By: #### C MP, LIPID #### [facility] [address] [place] [address] Dr. Kim Roper Albumin/Globulin [Mass ratio] 1.0 {ratio} Normal [facility] Comment on above: Performed By: #### C MP, LIPID #### [facility] [address] [place] [address] Dr. Kim Roper ALP [Catalytic activity/Vol] 47 U/L Normal 46-116 [facility] Comment on above: Performed By: #### C MP, LIPID #### [facility] [address] [place] [address] Dr. Kim Roper ALT [Catalytic activity/Vol] 40 U/L Normal 16-63 [facility] Comment on above: Performed By: #### C MP, LIPID #### [facility] [address] [place] [address] Dr. Kim Roper Anion gap [Moles/Vol] 11.4 mmol/L Normal [facility] Comment on above: Performed By: #### C MP, LIPID #### [facility] [address] [place] [address] Dr. Kim Roper AST [Catalytic activity/Vol] 21 U/L Normal 15-37 [facility] Comment on above: Performed By: #### C MP, LIPID #### [facility] [address] [place] [address] Dr. Kim Roper Bilirubin [Mass/Vol] 0.5 mg/dL Normal 0.2-1.0 [facility] Comment on above: Performed By: #### C MP, LIPID #### [facility] [address] [place] [address] Dr. Kim Roper Calcium [Mass/Vol] 8.9 mg/dL Normal 8.5-10.1 [facility] Comment on above: Performed By: #### C MP, LIPID #### [facility] [address] [place] [address] Dr. Kim Roper Chloride [Moles/Vol] 105 mmol/L Normal 98-107 [facility] Comment on above: Performed By: #### C MP, LIPID #### [facility] [address] [place] [address] Dr. Kim Roper CO2 [Moles/Vol] 29.3 mmol/L Normal 21.0-32.0 [facility] Comment on above: Performed By: #### C MP, LIPID #### [facility] [address] [place] [address] Dr. Kim Roper Creatinine [Mass/Vol] 0.88 mg/dL Normal 0.70-1.30 [facility] Comment on above: Performed By: #### C MP, LIPID #### [facility] [address] [place] [address] Dr. Kim Roper EGFR-AF MALAGASY >60 Normal >=60 [facility] Comment on above: Performed By: #### C MP, LIPID #### [facility] [address] [place] [address] Dr. Kim Roper EGFR-NON AF MALAGASY >60 Normal >=60 [facility] Comment on above: Performed By: #### C MP, LIPID #### [facility] [address] [place] [address] Dr. Kim Roper Globulin (S) [Mass/Vol] 3.6 g/dL Normal T [facility] Comment on above: Performed By: #### C MP, LIPID #### [facility] [address] [address] [address] Kim Roper Glucose [Mass/Vol] 160 mg/dL Critically high 74-106 [facility] Comment on above: Performed By: #### C MP, LIPID #### [facility] [address] [address] [address] Kim Roper Potassium [Moles/Vol] 4.7 mmol/L Normal 3.5-5.1 [facility] Comment on above: Performed By: #### C MP, LIPID #### [facility] [address] [address] [address] Kim Roper Protein [Mass/Vol] 7.3 g/dL Normal 6.4-8.2 [facility] Comment on above: Performed By: #### C MP, LIPID #### [facility] [address] [place] [address] Dr. Kim Roper Sodium [Moles/Vol] 141 mmol/L Normal 136-145 [facility] Comment on above: Performed By: #### C MP, LIPID #### [facility] [address] [place] [address] Dr. Kim Roper Urea nitrogen [Mass/Vol] 11.0 mg/dL Normal 7.0-18.0 [facility] Comment on above: Performed By: #### C MP, LIPID #### [facility] [address] [place] [address] Dr. Kim Roper Urea nitrogen/Creatinine [Mass ratio] 12.5 mg/mg Normal [facility] Comment on above: Performed By: #### C MP, LIPID #### [facility] [address] [place] [address] Dr. Kim Roper VITAMIN B12on 06-10-2022 Cobalamin (Vitamin B12) [Mass/Vol] 281.0 pg/mL Normal 193.0-986.0 [facility] Comment on above: Performed By: #### V ITB12 #### [facility] [address] [place] [address] Dr. Kim Roper LIPID PROFILEon 04-22-2022 CHOL-HDL RATIO NORM SEE BELOW Normal [facility] Comment on above: Result Comment: 3.3 - 4.4 LOW RISK 4.4 - 7.1 AVERAGE RISK 7.1 - 11.0 MODERATE RISK >11.0 HIGH RISK Performed By: #### L IPID, CMP #### [facility] [address] [address] [address] Kim Roper Cholesterol [Mass/Vol] 114 mg/dL Normal <=200 [facility] Comment on above: Performed By: #### L IPID, CMP #### [facility] [address] [address] [address] Kim Roper Cholesterol in HDL [Mass/Vol] 42 mg/dL Normal 40-60 [facility] Comment on above: Performed By: #### L IPID, CMP #### [facility] [address] [address] [address] Kim Roper Cholesterol in LDL [Mass/Vol] 45.6 mg/dL Normal [facility] Comment on above: Performed By: #### L IPID, CMP #### [facility] [address] [address] [address] Kim Roper Cholesterol.total/Choles terol in HDL [Mass ratio] 2.7 {ratio} Normal [facility] Comment on above: Performed By: #### L IPID, CMP #### [facility] [address] [address] [address] Kim Roper HDL NORMAL > or = 60 mg/dl - LOW CARDIOVASCULAR RISK <40 mg/dl - HIGH CARDIOVASCULAR RISK Normal [facility] Comment on above: Performed By: #### L IPID, CMP #### [facility] [address] [address] [address] Kim Roper LDL CALC NORMAL SEE BELOW Normal [facility] Comment on above: Result Comment: <100 mg/dl OPTIMAL 100 - 129 mg/dl NEAR OR ABOVE OPTIMAL 130 - 159 mg/dl BORDERLINE HIGH 160 - 189 mg/dl HIGH >190 mg/dl VERY HIGH Performed By: #### L IPID, CMP #### [facility] [address] [address] [address] Kim Roper Triglyceride [Mass/Vol] 132 mg/dL Normal <=150 T [facility] Comment on above: Performed By: #### L IPID, CMP #### [facility] [address] [place] [address] Dr. Kim Roper VLDL CALC 26.4 mg/dL Normal [facility] Comment on above: Performed By: #### L IPID, CMP #### [facility] [address] [place] [address] Dr. Kim Roper MICROALB CREAT RATIO RANDOMo n 06-20-2021 mALB <1.3 Normal <=30.0 [facility] Comment on above: Performed By: #### M CRR #### [facility] [address] [place] [address] Dr. Kim Roper URINE CREAT 126.66 mg/dL Normal 20.00-300.0 0 [facility] Comment on above: Performed By: #### M CRR #### [facility] [address] [place] [address] Dr. Kim Roper PROF 14(COMP METB)on 022 Albumin [Mass/Vol] 3.9 g/dL Normal 3.4-5.0 [facility] Comment on above: Performed By: #### L IPID, CMP #### [facility] [address] [place] [address] Dr. Kim Roper Albumin/Globulin [Mass ratio] 1.2 {ratio} Normal [facility] Comment on above: Performed By: #### L IPID, CMP #### [facility] [address] [place] [address] Dr. Kim Roper ALP [Catalytic activity/Vol] 46 U/L Normal 46-116 [facility] Comment on above: Performed By: #### L IPID, CMP #### [facility] [address] [place] [address] Dr. Kim Roper ALT [Catalytic activity/Vol] 32 U/L Normal 16-63 [facility] Comment on above: Performed By: #### L IPID, CMP #### [facility] [address] [address] [address] Kim Roper Anion gap [Moles/Vol] 10.9 mmol/L Normal Th [facility] Comment on above: Performed By: #### L IPID, CMP #### [facility] [address] [address] [address] Kim Roper AST [Catalytic activity/Vol] 17 U/L Normal 15-37 [facility] Comment on above: Performed By: #### L IPID, CMP #### [facility] [address] [address] [address] Kim Roper Bilirubin [Mass/Vol] 0.6 mg/dL Normal 0.2-1.3 [facility] Comment on above: Performed By: #### L IPID, CMP #### [facility] [address] [place] [address] Dr. Kim Roper Calcium [Mass/Vol] 8.7 mg/dL Normal 8.5-10.1 [facility] Comment on above: Performed By: #### L IPID, CMP #### [facility] [address] [place] [address] Dr. Kim Roper Chloride [Moles/Vol] 103 mmol/L Normal 98-107 [facility] Comment on above: Performed By: #### L IPID, CMP #### [facility] [address] [place] [address] Dr. Kim Roper CO2 [Moles/Vol] 30.4 mmol/L Critically high 22.0-30.0 [facility] Comment on above: Performed By: #### L IPID, CMP #### [facility] [address] [place] [address] Dr. Kim Roper Creatinine [Mass/Vol] 0.77 mg/dL Normal 0.66-1.25 [facility] Comment on above: Performed By: #### L IPID, CMP #### [facility] [address] [place] [address] Dr. Kim Roper EGFR-AF MALAGASY >60 Normal >=60 [facility] Comment on above: Performed By: #### L IPID, CMP #### [facility] [address] [address] [address] Kim Roper EGFR-NON AF MALAGASY >60 Normal >=60 [facility] Comment on above: Performed By: #### L IPID, CMP #### [facility] [address] [place] [address] Dr. Kim Roper Globulin (S) [Mass/Vol] 3.3 g/dL Normal T [facility] Comment on above: Performed By: #### L IPID, CMP #### [facility] [address] [place] [address] Dr. Kim Roper Glucose [Mass/Vol] 88 mg/dL Normal 74-106 [facility] Comment on above: Performed By: #### L IPID, CMP #### [facility] [address] [place] [address] Dr. Kim Roper Potassium [Moles/Vol] 4.3 mmol/L Normal 3.4-5.0 [facility] Comment on above: Performed By: #### L IPID, CMP #### [facility] [address] [place] [address] Dr. Kim Roepr Protein [Mass/Vol] 7.2 g/dL Normal 6.1-8.2 [facility] Comment on above: Performed By: #### L IPID, CMP #### [facility] [address] [place] [address] Dr. Kim Roper Sodium [Moles/Vol] 140 mmol/L Normal 137-145 [facility] Comment on above: Performed By: #### L IPID, CMP #### [facility] [address] [place] [address] Dr. Kim Roper Urea nitrogen [Mass/Vol] 15.0 mg/dL Normal 7.0-18.0 [facility] Comment on above: Performed By: #### L IPID, CMP #### [facility] [address] [place] [address] Dr. Kim Roper Urea nitrogen/Creatinine [Mass ratio] 19.5 mg/mg Normal [facility] Comment on above: Performed By: #### L IPID, CMP #### [facility] [id number] Kim Roper VITAMIN B12on 06-20-2021 Cobalamin (Vitamin B12) [Mass/Vol] 430.0 pg/mL Normal 239.0-931.0 [facility] Comment on above: Performed By: #### V ITB12 #### [facility] [address] [address] [address] Kim Roper Tobacco Screening.on 021 Fall risk assessment a) No falls within the last year [facility] 250 DO Work Phone: Tobacco use status CPHS b) No M [facility] [employer] 250 DO Work Phone: GLUCOSE, FINGERSTICK-IN OFFI CEon 03-20-2020 Glucose [Mass/Vol] 155 mg/dL High 80-116 [facility] Comment on above: Performed By: #### Everett ROP I #### [facility] [address] [place] [address], BASIC METABOLIC PANELon 03-01 Anion gap [Moles/Vol] 14 mmol/L High 5-13 [facility] Comment on above: Performed By: #### DESI DALE #### [facility] [address] [place] [address], Calcium [Mass/Vol] 8.3 mg/dL Low 8.4-10.4 [facility] Comment on above: Performed By: #### DESI DALE #### [facility] [address] [place] [address], Chloride [Moles/Vol] 101 mmol/L Normal 97-111 [facility] Comment on above: Performed By: #### DESI DALE #### [facility] [address] [place] [address], CO2 [Moles/Vol] 24 mmol/L Normal 21-30 [facility] Comment on above: Performed By: #### DESI DALE #### [facility] [address] [place] [address], Creatinine [Mass/Vol] 0.73 mg/dL Low 0.80-1.30 [facility] Comment on above: Performed By: #### Dinesh THAPA CH8 #### [facility] [address] [place] [address], GFR/1.73 sq M.predicted MDRD (S/P/Bld) [Vol rate/Area] 91 mL/min/1.73sqm Normal >=60 [facility] Comment on above: Performed By: #### Dinesh THAPA CH8 #### [facility] [address] [place] [address], Glucose [Mass/Vol] 221 mg/dL High 80-116 [facility] Comment on above: Performed By: #### Dinesh THAPA CH8 #### [facility] [address] [place] [address], Potassium [Moles/Vol] 4.0 mmol/L Normal 3.3-5.3 [facility] Comment on above: Performed By: #### DESI DALE #### [facility] [address] [place] [address], Sodium [Moles/Vol] 135 mmol/L Normal 135-148 [facility] Comment on above: Performed By: #### Dinesh THAPA CH8 #### [facility] [address] [place] [address], Urea nitrogen [Mass/Vol] 8 mg/dL Normal 8-22 [facility] Comment on above: Performed By: #### DESI DALE #### [facility] [address] [place] [address], CBC WITH DIFFERENTIALon 03-01 Basophils (Bld) [#/Vol] 0.07 10*3/uL Normal 0.00-0.20 [facility] Comment on above: Performed By: #### T ROP I #### [facility] [address] [place] [address], Basophils/100 WBC (Bld) 0.7 % Normal <=1.9 [facility] Comment on above: Performed By: #### T ROP I #### [facility] [address] [place], [place], Eosinophils (Bld) [#/Vol] 0.02 10*3/uL Normal 0.00-0.70 [facility] Comment on above: Performed By: #### T ROP I #### [facility] [address] [place], [place], Eosinophils/100 WBC (Bld) 0.2 % Normal 0.1-4.0 [facility] Comment on above: Performed By: #### T ROP I #### [facility] [address] [place], [place], Erythrocyte distribution width (RBC) [Ratio] 14.9 % High 11.5-14.5 [facility] Comment on above: Performed By: #### T ROP I #### [facility] [address] [place], [place], Hematocrit (Bld) [Volume fraction] 41.2 % Normal 41.0-53.0 [facility] Comment on above: Performed By: #### T ROP I #### [facility] [address] [place], [place], Hemoglobin (Bld) [Mass/Vol] 14.0 g/dL Normal 13.9-16.3 [facility] Comment on above: Performed By: #### T ROP I #### [facility] [address] [place], [place], Lymphocytes (Bld) [#/Vol] 0.59 10*3/uL Low 1.00-4.80 [facility] Comment on above: Performed By: #### T ROP I #### [facility] [address] [place], [place], Lymphocytes/100 WBC (Bld) 6.1 % Low 24.0-44.0 [facility] Comment on above: Performed By: #### T ROP I #### [facility] [address] [place], [place], MCH (RBC) [Entitic mass] 29.5 pg Normal 26.0-34.[address] [facility] Comment on above: Performed By: #### T ROP I #### [facility] [address] [place], [place], MCHC (RBC) [Mass/Vol] 34.1 g/dL Normal 32.0-35.[address] [facility] Comment on above: Performed By: #### T ROP I #### [facility] [address] [place], [place], MCV (RBC) [Entitic vol] 87 fL Normal 80-100 T [facility] Comment on above: Performed By: #### T ROP I #### [facility] [address] [place], [place], Monocytes (Bld) [#/Vol] 0.61 10*3/uL Normal 0.20-1.[address] [facility] Comment on above: Performed By: #### T ROP I #### [facility] [address] [place], [place], Monocytes (Bld) [#/Vol] 18 10*3/uL Normal <=20 T [facility] Comment on above: Performed By: #### T ROP I #### [facility] [address] [place], [place], Monocytes/100 WBC (Bld) 6.3 % Normal 2.0-11.0 [facility] Comment on above: Performed By: #### T ROP I #### [facility] [address] [place], [place], Neutrophils (Bld) [#/Vol] 8.39 10*3/uL High 1.50-8.[address] [facility] Comment on above: Performed By: #### T ROP I #### [facility] [address] [place], [place], Neutrophils/100 WBC (Bld) 86.7 % High 31.0-76.[address] [facility] Comment on above: Performed By: #### T ROP I #### [facility] [address] [place], [place], Nucleated RBC (Bld) [#/Vol] 0.0 10*3/uL Normal [facility] Comment on above: Performed By: #### T ROP I #### [facility] [address] [place], [place], Nucleated RBC (Bld) [#/Vol] 0.00 10*3/uL Normal [facility] Comment on above: Performed By: #### T ROP I #### [facility] [address] [place], [place], Platelet mean volume (Bld) [Entitic vol] 6.4 fL Low 7.5-11.2 [facility] Comment on above: Performed By: #### T ROP I #### [facility] [address] [place], [place], Platelets (Bld) [#/Vol] 221 10*3/uL Normal 150-400 [facility] Comment on above: Performed By: #### T ROP I #### [facility] [address] [place], RBC (Bld) [#/Vol] 4.76 10*6/uL Normal 4.50-5.90 [facility] Comment on above: Performed By: #### T ROP I #### [facility] [address] [place], WBC (Bld) [#/Vol] 9.7 10*3/uL Normal 4.5-11.5 [facility] Comment on above: Performed By: #### T ROP I #### [facility] [address] [place], [place], CT HEAD W/O CONTRASTon 03-19 CT [...] E ALANIS, CH8 #### [facility] [address] [place], [place], HIV1 HIV2 AGAB SCRNon 2020 HIV AG-AB SCREEN Non-Reactive Normal Non-Reactiv e [facility] Comment on above: Order Comment: HIV Information: ???[place] Rev. code 3701.243(E): This information has been [...] agab scrn #### [facility] [address] [place], [place], LACTIC ACIDon 03-19-2020 Lactate [Moles/Vol] 1.5 mmol/L Normal 0.5-2.0 [facility] Comment on above: Performed By: #### L ACT #### [facility] [address] [place], [place], PARTIAL THROMBOPLASTIN TIMEo n 03-19-2020 aPTT Coag (Bld) [Time] 29 s Normal 25-37 Th [facility] Comment on above: Performed By: #### P T, APTT #### [facility] [address] [place] [address], PROTHROMBIN TIME AND INRon 0 03-19-2020 INR Coag (PPP) [Relative time] 0.96 {INR} Normal 0.90-1.10 [facility] Comment on above: Performed By: #### P T, APTT #### [facility] [address] [place] [address], PT Coag (PPP) [Time] 10.9 s Normal 9.7-12.9 [facility] Comment on above: Performed By: #### P T, APTT #### [facility] [address] [place] [address], TROPONIN Ion 03-19-2020 Troponin I.cardiac [Mass/Vol] ng/mL Normal <0.120 [facility] Comment on above: Result Comment: Rang [...] T ROP I #### [facility] [address] [place] [address], Troponin I.cardiac [Mass/Vol] ng/mL Normal <0.120 [facility] Comment on above: Result Comment: Rang [...] T ROP I #### [facility] [address] [place] [address], Troponin I.cardiac [Mass/Vol] ng/mL Normal <0.120 [facility] Comment on above: Result Comment: Rang [...] T ROP I #### [facility] [address] [place] [address], TYPE AND SCREENon 03-19-2020 ABO and Rh group Nom (Bld) No Previous Results Normal [facility] Comment on above: Performed By: #### T S #### [facility] [address] [place] [address], ABO and Rh group Nom (Bld) A Positive Normal [facility] Comment on above: Performed By: #### T S #### [facility] [address] [place], [place], ABSC INT Negative Normal [facility] Comment on above: Performed By: #### T S #### [facility] [address] [place], [place], NO CARDIAC STRESS/REST INJE CTIONon 08-15-2019 NO CARDIAC STRESS/REST INJECTION Patient Name: JOSEPH ESCALONA STUDY: MYOCARDIAL PERFUSION STRESS TEST WITH LEXISCAN Performing facility: [facility], [address] [place] [address], [address], [place], [place] [address] Provider: Jaleesa Conn MD, [facility] PCP: Dr. Zia GRIGGS Supervising provider: Chinedu Mcgarry [facility], [facility]: ASCVD DM Hyperlipidemia HISTORY: Gender: M; Age: 74 y/o ; Height: 167.64 cm; Weight: 92.1215859 kg. CAD; Diabetes; HTN; Abnormal EKG; High Cholesterol; Quit smoking years ago. Cardiac catheterization 2009. COMPARISON: Previous nuclear testing completed 2009 at [place]. ACCESSION NUMBER(S): [id number]; [id number]; [id number] ORDERING CLINICIAN: JALEESA CONN TECHNIQUE: ONE DAY [...] Electronically signed by: CLARE FONSECA MD Normal [facility] Vital Signs Date Time Vital Sign Value Performing Clinician Facility 09-06-2023 10:04040 Body height 167.64 cm [facility] 09-06-2023 10:04040 Body mass index (BMI) [Ratio] 32 kg/m2 [facility] 09-06-2023 10:04040 Body weight 89.98 kg [facility] 09-06-2023 10:040400 Diastolic blood pressure 76 mm[Hg] [facility] 09-06-2023 10:04-0400 Heart rate 86 /min [facility] 09-06-2023 10:04-0400 Respiratory rate 12 /min [facility] 09-06-2023 10:04-0400 Systolic blood pressure 138 mm[Hg] [facility] 06-30-2023 11:18-0400 Diastolic blood pressure 80 mm[Hg] Jaleesa Conn MD Work Phone: [facility] 06-30-2023 11:18-0400 Systolic blood pressure 136 mm[Hg] Jaleesa Conn MD Work Phone: [facility] 06-30-2023 11:00-0400 Body height 167.6 cm Jaleesa Conn MD Work Phone: [facility] 06-30-2023 11:00-0400 Body mass index (BMI) [Ratio] 32.28 kg/m2 Jaleesa Conn MD Work Phone: [facility] 06-30-2023 11:00-0400 Body weight 90.72 kg Jaleesa Conn MD Work Phone: [facility] 06-30-2023 11:00-0400 Heart rate 76 /min Jaleesa Conn MD Work Phone: [facility] 06-24-2023 13:33-0400 Body height 167.64 cm [facility] 06-24-2023 13:33-0400 Body mass index (BMI) [Ratio] 32.3 kg/m2 [facility] 06-24-2023 13:33-0400 Body weight 90.71 kg [facility] 06-24-2023 13:33-0400 Diastolic blood pressure 71 mm[Hg] [facility] 06-24-2023 13:33-0400 Heart rate 78 /min [facility] 06-24-2023 13:33-0400 Respiratory rate 18 /min [facility] 06-24-2023 13:33-0400 SaO2% (BldA) [Mass fraction] 97 % [facility] 06-24-2023 13:33-0400 Systolic blood pressure 142 mm[Hg] [facility] 05-24-2023 11:56-0400 Body height 167.64 cm [facility] 05-24-2023 11:56-0400 Body mass index (BMI) [Ratio] 32.3 kg/m2 [facility] 05-24-2023 11:56-0400 Body weight 90.71 kg [facility] 05-24-2023 11:56-0400 Diastolic blood pressure 83 mm[Hg] [facility] 05-24-2023 11:56-0400 Heart rate 90 /min [facility] 05-24-2023 11:56-0400 Respiratory rate 16 /min [facility] 05-24-2023 11:56-0400 Systolic blood pressure 172 mm[Hg] [facility] 04-28-2023 10:03-0500 Blood Pressure Location Sara Lue [facility] 04-28-2023 10:03-0500 Diastolic blood pressure 82 mm[Hg] Sara Lue [facility] 04-28-2023 10:03-0500 Systolic blood pressure 142 mm[Hg] Sara Lue [facility] 03-17-2023 09:00-0500 Body height 167.64 cm Dion Ball Other [facility] 03-17-2023 09:00-0500 Body mass index (BMI) [Ratio] 33.41 kg/m2 Dion Ball Other [facility] [employer] Other 03-17-2023 09:00-0500 Body weight 93.9 kg Dion Ball Other [facility] [employer] Other 03-17-2023 09:00-0500 Body weight 93.89 kg [facility] 01-17-2024 09:00-0500 Diastolic blood pressure 80 mm[Hg] Dion Ball Other [facility] 03-17-2023 09:00-0500 Respiratory rate 12 /min Dion Ball Other [employer] [facility] [employer] Other 03-17-2023 09:00-0500 Systolic blood pressure 132 mm[Hg] Dion Ball Other [facility] 02-02-2023 14:05-0500 Blood Pressure Location ANGELI BROOKS [facility] 02-02-2023 14:05-0500 Diastolic blood pressure 74 mm[Hg] ANGELI BROOKS [facility] 02-02-2023 14:05-0500 Heart rate 82 /min ANGELI BROOKS [facility] 02-02-2023 14:05-0500 Respiratory rate 16 /min ANGELI BROOKS [facility] 02-02-2023 14:05-0500 Systolic blood pressure 132 mm[Hg] ANGELI BROOKS [facility] 12-15-2022 13:00-0400 Body height 167.64 cm Arran [employer] Other [facility] [employer] Other 12-15-2022 13:00-0400 Body mass index (BMI) [Ratio] 33.23 kg/m2 [employer] Other [employer] Other 12-15-2022 13:00-0400 Body weight 93.4 kg Tondra Bitdelius Other [employer] Other 12-15-2022 13:00-0400 Diastolic blood pressure 87 mm[Hg] Tondra Mapus Other [employer] Other 12-15-2022 13:00-0400 Respiratory rate 18 /min Tondra Mapus Other [employer] Other 12-15-2022 13:00-0400 SaO2% (BldA) [Mass fraction] 97 % Tondra Mapus Other [employer] Other 12-15-2022 13:00-0400 Systolic blood pressure 154 mm[Hg] Tondra Mapus Other [employer] Other 09-02-2022 10:30-0400 Body height 167.64 cm Dion Ball Other [employer] Other 09-02-2022 10:30-0400 Body mass index (BMI) [Ratio] 32.89 kg/m2 Dion Ball Other [employer] Other 09-02-2022 10:30-0400 Body weight 92.44 kg Dion Ball Other [employer] Other 09-02-2022 10:30-0400 Diastolic blood pressure 80 mm[Hg] Dion Ball Other [employer] Other 09-02-2022 10:30-0400 Respiratory rate 12 /min Dion Ball Other [employer] Other 09-02-2022 10:30-0400 Systolic blood pressure 130 mm[Hg] Dion Ball Other [employer] Other 08-20-2022 10:45-0400 Body height 167.64 cm Dion Ball Other [employer] Other 08-20-2022 10:45-0400 Body mass index (BMI) [Ratio] 32.47 kg/m2 Dion Ball Other [employer] Other 08-20-2022 10:45-0400 Body weight 91.26 kg Dion Ball Other [employer] Other 08-20-2022 10:45-0400 Diastolic blood pressure 77 mm[Hg] Dion Ball Other [employer] Other 08-20-2022 10:45-0400 Respiratory rate 12 /min Dion Ball Other [employer] Other 08-20-2022 10:45-0400 Systolic blood pressure 150 mm[Hg] Dion Ball Other [place] [employer] Other 08-04-2022 10:02-0400 Blood Pressure Location ANGELI BROOKS [facility] 08-04-2022 10:02-0400 Diastolic blood pressure 78 mm[Hg] ANGELI BROOKS [facility] 08-04-2022 10:02-0400 Heart rate 68 /min ANGELI BROOKS [facility] 08-04-2022 10:02-0400 Respiratory rate 16 /min ANGELI BROOKS [facility] 08-04-2022 10:02-0400 Systolic blood pressure 130 mm[Hg] ANGELI BROOKS [facility] 07-23-2022 11:09-0400 Diastolic blood pressure 78 mm[Hg] Dion E Ball Work Phone: [facility] [employer] 250 DO Work Phone: 07-23-2022 11:09-0400 Systolic blood pressure 138 mm[Hg] Dion E Ball Work Phone: [facility] [employer] 250 DO Work Phone: 07-23-2022 11:06-0400 Body height 167.64 cm Dion Montiel Ball Work Phone: [facility] [employer] 250 DO Work Phone: 07-23-2022 11:06-0400 Body mass index (BMI) [Ratio] 32.77 kg/m2 Dion Montiel Ball Work Phone: [facility] [employer] 250 DO Work Phone: 07-23-2022 11:06-0400 Body surface area Derived from formula 2.01 m2 Dion Montiel Ball Work Phone: [facility] [employer] 250 DO Work Phone: 07-23-2022 11:06-0400 Body weight 92.08 kg Dion Motniel Ball Work Phone: [facility] [employer] DO Work Phone: 07-23-2022 11:06-0400 Diastolic blood pressure 80 mm[Hg] Dion Montiel Ball Work Phone: [facility] [employer] DO Work Phone: 07-23-2022 11:06-0400 Heart rate 90 /min Dion Montiel Ball Work Phone: [facility] [employer] 250 DO Work Phone: 07-23-2022 11:06-0400 Systolic blood pressure 140 mm[Hg] Dion Montiel Ball Work Phone: [facility] [employer] DO Work Phone: 06-30-2022 11:20-0400 Body height 167.64 cm Dion Montiel Ball Work Phone: [facility] [employer] DO Work Phone: 06-30-2022 11:20-0400 Body mass index (BMI) [Ratio] 32.77 kg/m2 Dion Montiel Ball Work Phone: [facility] [employer] 250 DO Work Phone: 06-30-2022 11:20-0400 Body surface area Derived from formula 2.01 m2 Dion E Ball Work Phone: [facility] [employer] DO Work Phone: 06-30-2022 11:20-0400 Body weight 92.08 kg Dion E Ball Work Phone: [facility] [employer] DO Work Phone: 06-30-2022 11:20-0400 Diastolic blood pressure 88 mm[Hg] Dion Montiel Ball Work Phone: [facility] [employer] 250 DO Work Phone: 06-30-2022 11:20-0400 Heart rate 96 /min Dion Montiel Ball Work Phone: [facility] [employer] DO Work Phone: 06-30-2022 11:20-0400 Systolic blood pressure 158 mm[Hg] Dion Montiel Ball Work Phone: [facility] [employer] DO Work Phone: 06-15-2022 14:30-0400 Body height 167.64 cm Ynes Garnicaus Other [employer] Other 06-15-2022 14:30-0400 Body mass index (BMI) [Ratio] 33.18 kg/m2 Tondra Mapus Other [employer] Other 06-15-2022 14:30-0400 Body weight 93.26 kg Tondra Mapus Other [employer] Other 06-15-2022 14:30-0400 Diastolic blood pressure 85 mm[Hg] Tondra Mapus Other [employer] Other 06-15-2022 14:30-0400 Respiratory rate 18 /min Tondra Mapus Other [employer] Other 06-15-2022 14:30-0400 SaO2% (BldA) [Mass fraction] 95 % Tondra Mapus Other [employer] Other 06-15-2022 14:30-0400 Systolic blood pressure 151 mm[Hg] Tondra Mapus Other [employer] Other 02-25-2022 09:34-0500 Blood Pressure Location ANGELI BECKWITHRY [facility] 02-25-2022 09:34-0500 Diastolic blood pressure 82 mm[Hg] ANGELI BROOKS [facility] 02-25-2022 09:34-0500 Heart rate 68 /min ANGELI BROOKS [facility] 02-25-2022 09:34-0500 Respiratory rate 16 /min ANGELI BROOKS [facility] 02-25-2022 09:34-0500 Systolic blood pressure 138 mm[Hg] ANGELI BROOKS [facility] 08-26-2021 10:43-0400 Blood Pressure Location Kailee Mckinney Jr. [facility] 08-26-2021 10:43-0400 Diastolic blood pressure 76 mm[Hg] Kailee Mckinney Jr. [facility] 08-26-2021 10:43-0400 Heart rate 85 /min Kailee Mckinney Jr. [facility] 08-26-2021 10:43-0400 Respiratory rate 16 /min Kailee Mckinney Jr. [facility] 08-26-2021 10:43-0400 Systolic blood pressure 138 mm[Hg] Kailee Mckinney Jr. [facility] 01-06-2021 14:59-0500 Body height 167.64 cm Dion Griggs Work Phone: [facility] 250 DO Work Phone: 01-06-2021 14:59-0500 Body mass index (BMI) [Ratio] 32.6 kg/m2 Dion Montiel Ball Work Phone: [facility] DO Work Phone: 01-06-2021 14:59-0500 Body surface area Derived from formula 2.01 m2 Dion Montiel Ball Work Phone: [facility] DO Work Phone: 01-06-2021 14:59-0500 Body weight 91.63 kg Dion Montiel Ball Work Phone: [facility] DO Work Phone: 01-06-2021 14:59-0500 Diastolic blood pressure 76 mm[Hg] Dion Griggs Work Phone: [facility] 250 DO Work Phone: 01-06-2021 14:59-0500 Heart rate 86 /min Dion Griggs Work Phone: [facility] DO Work Phone: 01-06-2021 14:59-0500 Systolic blood pressure 128 mm[Hg] Dion Griggs Work Phone: [facility] 250 DO Work Phone: Encounters Encounter Date Encounter Type Care Provider Facility Start: 11-09-2023 End: 11-09-2023 ambulatory Saar Bob [place] Start: 11-09-2023 End: 11-09-2023 Patient encounter procedure Sara Bob [facility] Start: 10-27-2023 End: 10-27-2023 ambulatory Sara Bob Facility:[facility] Start: 10-27-2023 End: 10-27-2023 Off-Site Sara Eatondinesh [facility] Start: 09-28-2023 End: 09-28-2023 ambulatory Sara Bob Facility:[id number] Start: 09-06-2023 End: 09-06-[address] [facility] Work Phone: Start: 09-06-2023 End: 09-06-2023 Patient encounter procedure [facility] Work Phone: Start: 07-13-2023 End: 07-13-2023 Patient encounter procedure [facility] Work Phone: Start: 06-30-2023 End: 06-30-2023 Office outpatient visit 25 minutes Jaleesa Conn MD Work Phone: [facility] Comment on above: Essential hypertensi on, benign (Primary Dx); ASCVD (arteriosclerotic cardiovascular disease); Mixed hyperlipidemia; Type 2 diabetes mellitus without complication, with long-term current use of insulin (Multi); Former smoker; BMI 32.0-32.9,adult; Obstructive sleep apnea syndrome; Urinary retention Start: 06-30-2023 End: 06-30-2023 ambulatory JALEESA Hamlin [facility] Ambulatory Start: 06-29-2023 Non-patient / Non-visit [facility] Work Phone: Start: 06-24-2023 End: 06-24-[address] [facility] Work Phone: Start: 06-24-2023 End: 06-24-2023 Patient encounter procedure [facility] Work Phone: Start: 06-22-2023 Non-patient / Non-visit [facility] Work Phone: Start: 06-15-2023 End: 06-15-2023 ambulatory Ton Rhodes Facility:[facility] Start: 06-08-2023 ambulatory ANGELI Michel ty:GARO [employer] Start: 05-24-2023 End: 05-24-2023 ambulatory [facility] Work Phone: Start: 05-24-2023 End: 05-24-2023 Patient encounter procedure [facility] Work Phone: Start: 05-20-2023 Non-patient / Non-visit [facility] Work Phone: Start: 05-10-2023 End: 06-22-2023 Pre-admission assessment Renato MCCABE [facility] Start: 05-05-2023 ambulatory ANGELI Michel ty:GARO Francis Start: 05-04-2023 Non-patient / Non-visit [facility] [employer] Work Phone: Start: 04-28-2023 End: 04-28-2023 ambulatory Sara Bob Facility:G[facility]O [facility] Start: 04-28-2023 End: 04-28-2023 Patient encounter procedure Sara [facility] Start: 03-26-2023 End: 03-26-2023 ambulatory Sara Bob Facility:GARO Francis Start: 03-26-2023 End: 03-26-2023 Patient encounter procedure [facility] Start: 03-25-2023 End: 03-25-2023 ambulatory Sara Bob Facility:[id number] Start: 03-17-2023 End: 03-17-2023 ambulatory Dion Griggs Other [place] [employer] Other Start: 03-17-2023 Office outpatient vi sit 25 minutes Dion Griggs [facility] Start: 03-17-2023 End: 03-17-2023 Patient encounter procedure [facility] Start: 03-16-2023 End: 03-16-2023 ambulatory Tondra Mapus Other [place] [employer] Other Start: 03-16-2023 Telephone encounter Tondra Mapus [facility] Start: 02-02-2023 End: 02-02-2023 ambulatory ANGELI GUY Facility: [facility] Start: 02-02-2023 End: 02-02-2023 Patient encounter procedure ANGELI GUY [facility] Start: 12-15-2022 (DM) Diabetes Tondra Mapus [facility] Start: 12-15-2022 End: 12-16-2022 ambulatory Ynes Jain [employer] Other Start: 12-02-2022 End: 12-02-2022 ambulatory Dion Griggs Other [employer] Other Start: 12-02-2022 Nursing evaluation o f patient and report [facility] Start: 09-02-2022 End: 09-02-2022 ambulatory Dion Griggs Other [employer] Other Start: 09-02-2022 Patient encounter procedure Dion Griggs [facility] Start: 08-20-2022 End: 08-20-2022 ambulatory Dion Griggs Other [employer] Other Start: 08-20-2022 Office outpatient vi sit 15 minutes Dion Griggs [facility] Start: 08-04-2022 End: 08-04-2022 Patient encounter procedure ANGELI GUY [facility] Start: 07-23-2022 Office outpatient vi sit 10 minutes Dion Griggs Work Phone: [facility] 250 DO Work Phone: Start: 06-30-2022 Telephone encounter Dion PETERSON [facility] Start: 06-30-2022 Office outpatient vi sit 25 minutes Dion Griggs Work Phone: [facility] 250 DO Work Phone: Start: 06-30-2022 End: 06-30-2022 ambulatory Jaleesa Conn [place] [employer] Other Start: 06-15-2022 (DM) Diabetes Ynes Jain [facility] Start: 06-15-2022 End: 06-15-2022 ambulatory Ynes Jain Other [employer] Other Start: 06-10-2022 End: 06-11-2022 ambulatory TONDRA MAPUS Facility:[facility] Start: 05-04-2022 Rx Renewal Dion szymanski Work Phone: [facility] 250 DO Work Phone: Start: 04-27-2022 End: 04-27-2022 ambulatory Tondra Mapus Other [employer] Other Start: 04-27-2022 Telephone encounter Tondra Mapus [facility] Start: 02-25-2022 End: 02-25-2022 Patient encounter procedure ANGELI GUY [facility] Start: 02-06-2022 End: 02-07-[address] KAILEE Valente Facility:[facility] Start: 09-03-2021 Adult health examination Noam radha Griggs Other [employer] Other Start: 09-01-2021 Pre-procedure evalua tion check Dion Griggs Other [employer] Other Start: 08-26-2021 End: 08-26-2021 Patient encounter procedure Kailee Mckinney Jr. [facility] Start: 06-23-2021 End: 06-23-2021 ambulatory Tondra Mapus Other [employer] Other Start: 06-23-2021 Telephone encounter Tondra Mapus [facility] Start: 06-20-2021 End: 06-21-2021 ambulatory TONDRA MAPUS Facility:[facility] Start: 03-24-2021 Rx Renewal Dion szymanski Work Phone: [facility] 250 DO Work Phone: Start: 03-18-2021 End: 03-18-2021 ambulatory Ynes Jain Other [facility] [employer] Other Start: 03-18-2021 Telephone encounter Ynes Jain [facility] Start: 01-06-2021 Office outpatient vi sit 25 minutes Dion E Ball Work Phone: [facility] 250 DO Work Phone: Start: 03-19-2020 End: 03-20-2020 Evaluation and management of inpatient CACHORRO ROBLERO Facility:[facility] Start: 03-19-2020 Patient encounter procedure UNKNOWN PROVIDER Facility:[facility] Procedures Date Procedure Procedure Detail Performing Clinician Start: 06-29-2023 Bacteria identified in Urine by Culture Start: 05-24-2023 Blood Culture 1 Start: 05-24-2023 Blood Culture 2 Start: 05-20-2023 Bacteria identified in Urine by Culture Start: 05-20-2023 Blood Culture 1 Start: 05-20-2023 Blood Culture 2 Start: 02-06-2022 PSA screening YNES BRAN Comment on above: Performed By: #### P SAD #### [facility] [address] [place] [address] Dr. Kim Roper Start: 05-01-2020 Transurethral prostatectomy Kailee Mckinney Jr. Start: 03-18-2020 Cystoscopy Kailee hernandez Jr. Start: 02-27-2015 Screening for malign ant neoplasm of colon Dion Ball Other Start: 11-07-2013 Screening for malign ant neoplasm of prostate Dion Gabriel Other Start: 03-01-2010 Total colonoscopy Noam min E Ball Work Phone: Appendectomy Dion E Gabriel Work Phone: Appendectomy Kailee Valente Arthroplasty of [...] Vaccines (3 - Td or Tdap) [facility] Start: 04-12-2024 End: 04-12-2024 Patient encounter procedure 04/12/2024 11:20 AM EST Office Visit [facility] [address] [address] Jaleesa Conn MD 703 [facility] 2, [address] [address] [facility] Start: 10-31-2023 Influenza vaccination Influenz a Vaccine (Season Ended) [facility] Start: 06-30-2023 FUV, Provider: Jaleesa Conn, Status: Pen, Time: 11:00 AM FUV, Provider: Jaleesa Conn, Status: Pen, Time: 11:00 AM [facility] 250 DO Work Phone: Start: 05-20-2023 Blood Culture 1 Blood Culture 1 [facility] Start: 05-20-2023 Blood Culture 2 Blood Culture 2 [facility] Start: 10-30-2022 COVID-19 Vaccine ( season) COVID-19 Vaccine ( season) [facility] Start: 08-15-2022 Glaucoma screening Diabetes: R etinopathy Screening [facility] Start: 07-23-2022 NURSEVST, Provider: EMILY BERGMAN PROSPECTING DRILLER HELPER 1,[id number], Status: Pen, Time: 11:00 AM NURSEVST, Provider: EMILY BERGMAN PROSPECTING DRILLER HELPER 1,[id number], Status: Pen, Time: 11:00 AM [facility] 250 DO Work Phone: Start: 06-30-2022 FUV, Provider: Jaleesa Conn, Status: Pen, Time: 11:20 AM FUV, Provider: Jaleesa Conn, Status: Pen, Time: 11:20 AM [facility] 250 DO Work Phone: Start: 07-01-2021 FUV, Provider: Jaleesa oCnn, Status: Pen, Time: 1:00 PM FUV, Provider: Jaleesa Conn, Status: Pen, Time: 1:00 PM [facility] 250 DO Work Phone: Start: 2004 RSV patient s and/or patients aged 60+ years (1 - 1-dose 60+ series) RSV patients and/or patients aged 60+ years (1 - 1-dose 60+ series) [facility] Start: 1994 Zoster Vaccines (1 o f 2) Zoster Vaccines (1 of 2) [facility] Start: 07-15-1963 Urine screening for protein Diabetes: Urine Protein Screening [facility] Start: 1962 Hepatitis C screening Hepatitis C Sc reening [facility] Start: 1954 Diabetic foot examination Diabetes: Foot Exam [facility] Start: 1944 Hemoglobin A1c measurement Diabetes: Hemoglobin A1C [facility] Start: 1944 Lipid panel Lipid Panel [facility] Start: 1944 Medicare Annual Wellness Visit Medicare Annual Wellness Visit (AWV) [facility] Patient Education Diabetes in Ol aroldo Adults [facility] Work Phone: [facility] Immunizations Immunization Date Immunization Notes Care Provider Mark manzanares 12-02-2022 influenza, high dose seasonal, preservative-free Dion Griggs Other [employer] Other 12-02-2022 influenza virus vaccine, unspecified formulation [facility] 12-10-2021 Fluad Quadrivalent 0 .5 ML Intramuscular Prefilled Syringe Dion Griggs Work Phone: [facility] 250 DO Work Phone: 12-10-2021 influenza virus vaccine, split virus (incl. purified surface antigen) Dion Griggs Other [facility] [employer] Other 12-10-2021 influenza virus vaccine, unspecified formulation ANGELI GUY [facility] 12-10-2021 influenza, high dose seasonal, preservative-free Dion Griggs Other [facility] [employer] Other 12-06-2020 influenza virus vaccine, unspecified formulation ANGELI GUY [facility] 12-06-2020 influenza, high dose seasonal, preservative-free Dion Griggs Work Phone: [facility] Comment on above: Series: 12-05-2020 influenza virus vaccine, split virus (incl. purified surface antigen) Dion Griggs Other [facility] [employer] Other 12-05-2020 influenza virus vaccine, unspecified formulation [facility] 05-06-2020 Josephine COVID-19 Vaccine 0.5 ML Intramuscular Suspension Dion Griggs Work Phone: [facility] Comment on above: Series: 03-19-2020 diphtheria, tetanus toxoids and pertussis vaccine Dion Griggs Work Phone: [facility] 03-19-2020 tetanus toxoid, redu noman diphtheria toxoid, and acellular pertussis vaccine, adsorbed Jaleesa Conn MD Work Phone: [facility] Work Phone: 12-05-2019 influenza virus vaccine, split virus (incl. purified surface antigen) Dion Griggs Other [facility] [employer] Other 12-05-2019 influenza virus vaccine, unspecified formulation [facility] 11-30-2019 influenza virus vaccine, unspecified formulation ANGELI GUY [facility] 11-30-2019 influenza, high dose seasonal, preservative-free Dion E Ball Work Phone: [place] [address] DO Work Phone: 10-31-2019 influenza virus vaccine, unspecified formulation Dion E Ball Work Phone: [facility] 11-23-2018 influenza virus vaccine, split virus (incl. purified surface antigen) Dion Griggs Other [facility] [employer] Other 11-23-2018 influenza virus vaccine, unspecified formulation ANGELI GUY [facility] 11-23-2018 influenza, injectabl e, quadrivalent, preservative free Dion E Ball Work Phone: [place] [address] DO Work Phone: 10-30-2018 influenza, high dose seasonal, preservative-free Dion E Ball Work Phone: [place] [address] DO Work Phone: 04-01-2015 pneumococcal conjuga te vaccine, 13 valent Dion E Ball Work Phone: [facility] 03-01-2015 pneumococcal polysaccharide vaccine, 23 valent Dion E Gabriel Work Phone: [facility] Comment on above: Series: 02-27-2015 pneumococcal conjuga te vaccine, 13 valent Dion Griggs Other [facility] 02-27-2015 pneumococcal Conjuga te, unspecified formulation; 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: [Need for prophylactic vaccination against Streptococcus pneumoniae (pneumococcus)] Dion Griggs Other [facility] [employer] Other 03-01-2010 influenza virus vaccine, unspecified formulation [facility] Work Phone: 03-01-2006 pneumococcal polysaccharide vaccine, 23 valent Dion Griggs [facility] Phone: [facility] DO Work Phone: influenza virus vaccine, unspecified formulation Dion Griggs [facility] DO Work Phone: Comment on above: 2009 Payers Date Payer Category Payer Unknown 2017 Self-pay [id number] 2017 Unknown [id number] 2009 Medicare MEDICARE MEDICAR E RAILROAD [id number] 2009-Present [address] [place] [address] [id number] 1959 Medicare [id number] 1959 Unknown [id number] 1944 Unknown [id number] 1944 Unknown [id number] .[id number] 1944 Unknown [id number] .[id number] 1944 Unknown [id number] .840.1.046960.3.579.2.593 1944 Unknown [id number] 2.16.840.1.793670.3.579.2.593 1944 Unknown [id number] 2.16.840.1.106403.3.579.2.356 1944 Unknown [id number] 2.16.840.1.647000.3.579.2.718 1944 Unknown [id number] 2.16.840.1.359203.3.579.2.1244 1944 Unknown [id number] 2.16.840.1.759383.3.579.2.727 1944 Unknown [id number] 2.16.840.1.028762.3.579.2.727 1944 Unknown [id number] 2.16.840.1.555878.3.579.2.727 1944 Unknown [id number] 2.16.840.1.829413.3.579.2.727 1944 Unknown [id number] 2.16.840.1.172644.3.579.2.727 1944 Unknown [id number] 2.16.840.1.038011.3.579.2.727 1944 Unknown [id number] 2.16.840.1.945889.3.579.2.727 1944 Unknown [id number] 2.16.840.1.954375.3.579.2.727 1944 Unknown [id number] 2.16.840.1.481849.3.579.2.727 Unknown [id number] [id number] Social History Date Type Detail Facility Start: 06-30-2023 No illicit drug use No illicit drug use -[facility] 250 DO Work Phone: Comment on above: 3 cups coffee daily, occasionl diet soda; 1 beer a month; Start: 06-30-2023 Sex Assigned At N [facility] [employer] Other Start: 08-26-2021 End: 06-24-2023 Tobacco smoking status Ex-smoker (finding) [facility] Start: 04-28-2023 Tobacco smoking status Never [facility] Start: 1945 Sex Assigned At Male F [facility] Start: 03-01-1972 History of tobacco use Current smoke r [facility] Work Phone: Start: 03-01-1972 History of tobacco use Cigarette Smo ker [facility] Work Phone: Start: 06-30-2023 Tobacco use and exposure Smokeless tobacco non-user [facility] Work Phone: Start: 06-30-2023 Alcoholic beverage intake Current drinker of alcohol (finding) [facility] Work Phone: Start: 06-30-2023 Alcohol Comment rarely [facility] Work Phone: Start: 1945 Sex assigned at Not on file U [facility] Work Phone: Start: 06-20-2023 End: 06-30-2023 Exposure to SARS-CoV-2 (event) Not sure [facility] Medical Equipment Procedure Code Equipment Code Equipment Origin al Text Equipment Identifier Dates Start: 04-23-2014 Functional Status Date Assessment Result Facility 11-09-2023 Functional Status N/A [facility] 04-28-2023 Functional Status N/A [facility] 02-02-2023 Functional Status N/A [facility] 08-04-2022 Functional Status N/A [facility] 02-25-2022 Functional Status N/A [facility] 08-26-2021 Functional Status N/A [facility] Clinical Notes 08-26-2021 to 11-09-2023 Jaleesa Conn MD - 06/30/2023 11:00 AM EDTPatient Instructions Note Date & Type Note Facility 11-09-2023 Hospital Discharge instructions Patient Education 11/09/2023 09:43:53 EU - Cystoscopy with Stent Removal Discharge Instructions (CUSTOM) Cystoscopy with Stent Removal Voiding after the procedure: there may be some pain, burning, urgency, frequency and blood tinged urine following the procedure. These symptoms usually resolve within 2-5 days. Drink the amount of fluid it takes to keep the urine pink to yellow or clear in color. Drinking enough water and fluids will help to ease any discomfort after your procedure. If you are having problems that seem out of the ordinary, please call. If unable to contact your physician and you feel it is an emergency, go to the nearest emergency room or call 911 Diet you may resume your normal diet. Activity you may resume your normal activities Call if you have a fever over 100 degrees. Follow Up Care 10/28/2023 14:28:01 With:Sara Bob Address:Unknown When: Unknown Comments:Call for any problems. Obtain renal US in 6-8 weeks. Will call for results [facility] 11-09-2023 Note Patient Education Cystoscopy with Stent Removal ? Voiding after the procedure: there may be some pain, burning, urgency, frequency and blood tinged urine following the procedure. These symptoms usually resolve within 2-5 days. Drink the amount of fluid it takes to keep the urine pink to yellow or clear in color. Drinking enough water and fluids will help to ease any discomfort after your procedure. ? If you are having problems that seem out of the ordinary, please call. ? If unable to contact your physician and you feel it is an emergency, go to the nearest emergency room or call 911 ? Diet ? you may resume your normal diet. ? Activity ? you may resume your normal activities ? Call if you have a fever over 100 degrees. [facility] 06-30-2023 History of Present illness Narrative Subjective [...] managed by diabetes clinic at [facility] 4. Class I obesity. Encouraged more weight control with diet and exercise. 5. Coronary artery disease with 50% LAD stenosis in 2009 cardiac catheterization, nuclear stress test 2020 was normal risk factor have been aggressively targeted 6. 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 Obstructive sleep apnea compliant with CPAP machine. Jaleesa Conn MD, [facility] Review of Systems All other [...] day with meals., Disp: , Rfl: omega 5-igo-zcr-fish oil (Fish OiL) 1,000 mg (120 mg-180 [...] Scribe Attestation By signing my name below, Celina Pedraza LPN, Scribe attest that this documentation has been [...] and plan. documented in this encounter [facility] Work Phone: 06-30-2023 Instructions Celina Womack [...] physical activity. documented in this encounter [facility] Work Phone: 06-18-2023 Note [id number] [facility] 06-15-2023 Note [facility] SURGERY Clinical Discharge Summary PERSON INFORMATION Name JOSEPH ESCALONA Age 77 Years 1945 Sex MALE Language Irish PCP Dion Griggs Marital Status Med Service Ambulatory Surgery Acct# Arrival 06/15/2023 11:20:08 Visit Reason SURGERY - CYSTOSCOPY Acuity LOS 008 05:56 Address: [address] [place] [address] Comment: PROVIDER INFORMATION VITALS INFORMATION Vital Sign [...] tab(s) Oral (giv (more content not included)... [facility] 04-28-2023 Hospital Discharge instructions Patient Education [...] including vitamins, herbs, eye drops, creams, and fmve-gff-qvxqcpe medicines. ?Whether you are or may be [...] provider. Document Revised: 10/29/2021 Document Reviewed: 09/20/2020 [employer] Patient Education 2022 Subtextual. Follow Up Care 03/26/2023 11:35:17 With:Sara Bob MD, URL, URO Address: [address], [place] [address] [phone] When: Unknown Comments:sched [employer] [facility] 03-17-2023 Evaluation note Encounter Date Diagnosis [...] A1C are consistently < 7% f/u diabetic MONOTYPER Mar, Obstructive sleep apnea (ICD-10 - G47.33) This patient is aware of the benefits associated with GEOVANNA: With continued use, the patient reduces the risk for CO, CVA, HTN, cardiac dysrhythmias and sudden cardiac [...] [BMI] 33.0-33.9, adult (ICD-10 - Z68.33) Mar, intermediate designer (current) use of insulin (ICD-10 - Z79.4) [employer] Other 01-16-2024 Evaluation note* Encounter Date Diagnosis Assessment Notes Treatment Notes Treatment Clinical Notes Mar, Type 2 diabetes mellitus with hyperglycemia (ICD-10 - E11.65) [employer] Other 12-05-2023 Hospital Discharge instructions Patient Education [...] including vitamins, herbs, eye drops, creams, and obod-squ-glaojgb medicines. Any problems you or family members [...] provider tells you to take them. Taking vfop-ycw-uyzkqgc medicines, vitamins, herbs, and supplements. Tests You [...] Follow these instructions at home: Medicines Take egzj-suk-aesiqqj and prescription medicines only as told by [...] provider. Document Revised: 10/29/2021 Document Reviewed: 09/27/2020 [employer] Patient Education 2022 Subtextual. Follow Up Care 08/04/2022 10:55:35 With:BROOKS ANTHONY, ANGELI Dinesh, URL Address: [address] [place] [address] [phone] When: Unknown Comments:sched cysto/TRUS [facility] 12-05-2023 NoteUrology Cystoscopy Cystoscopy is a procedure [...] including vitamins, herbs, eye drops, creams, and bmtn-ylf-euihxdc medicines. ? Any problems you or family [...] tells you to take them. ? Taking ufnx-yvz-sizniec medicines, vitamins, herbs, and supplements. Tests You [...] these instructions at home: Medicines ? Take ciuj-azh-txudtch and prescription medicines only as told by [...] or the department th (more content not included)...[facility] 12-15-2022 Evaluation note* Encounter Date [...] f/u with pcp for further evaluation. Nov, snf current use of insulin (ICD-10 - Z79.4) Nov, Vitamin B 12 deficiency (ICD-10 - E53.8) 05/2022 vit b 12 281 at target Nov, BMI 33.0-33.9,adult (ICD-10 - Z68.33) Setting weight-loss goals material was published [employer] Other 06-22-2023 Evaluation note* Encounter Date Diagnosis Assessment Notes Treatment Notes Treatment Clinical Notes Jul, Acute bacterial conjunctivitis of right eye (ICD-10 - H10.31) Wipe w/ warm wash cloth in morning Artificial tears Frequent hand washing Notify office or see cheese specialist if develop pain, blurred vision or fails to improve Jul, Viral URI (ICD-10 - J06.9) Instructed to use Robitussin or Mucinex for cough, saline or Flonase NS for congestion, Tylenol for pain and fever. Jul, Type 2 diabetes mellitus with hyperglycemia (ICD-10 - E11.65) Acute infection may cause BS to increase temporarily. No adjustment in treatment necessary [employer] Other 06-06-2023 Hospital Discharge instructions Patient Education [...] urethra. Follow these instructions at home: Take hrlo-ihe-kybhksc and prescription medicines only as told by [...] provider. Document Revised: 09/03/2021 Document Reviewed: 09/03/2021 [employer] Patient Education 2022 Subtextual. Follow Up Care 02/25/2022 10:18:55 With:BROOKS ANTHONY, ANGELI Montiel, URL Address: When:1 year [facility] 05-02-2023 Evaluation note* Encounter Date Diagnosis Assessment Notes Treatment Notes Treatment Clinical Notes June, Arteriosclerotic hea rt disease (ASHD) (ICD-10 - I25.10) LHC: 50% - 2009 [employer] Other 04-17-2023 Evaluation note* Encounter Date Diagnosis [...] f/u with pcp for further recommendation. May, intermediate designer current use of insulin (ICD-10 - Z79.4) May, Vitamin B 12 deficiency (ICD-10 - E53.8) 05/2022 vit b 12 281 at target May, BMI 33.0-33.9,adult (ICD-10 - Z68.33) Setting weight-loss goals material was published [employer] Other 12-28-2022 Hospital Discharge instructions Patient Education [...] including vitamins, herbs, eye drops, creams, and grim-ttc-aexwfmf medicines. ?Whether you are or may be [...] 12/13/2007 Document Revised: 06/06/2019 Document Reviewed: 12/20/2017 [employer] Patient Education 2020 Subtextual. Follow Up Care 08/26/2021 10:57:16 With:BROOKS ANTHONY, ANGELI Montiel, URL Address: [address] [place] [address] [facility] [place] [address] When: Unknown [facility] 06-28-2022 Hospital Discharge instructions Patient Education [...] Follow these instructions at home: Medicines Take dume-vzp-nhbwzrk and prescription medicines only as told by [...] or the blood stops without treatment. Take nxib-dnz-trjgeva and prescription medicines only as told by your health care provider. Drink enough fluid to keep your urine clear or pale yellow. This information is not intended to replace advice given to you by your health care provider. Make sure you discuss any questions you have with your health care provider. Document Released: 02/15/2006 Document Revised: 07/12/2019 Document Reviewed: 03/20/2017 [employer] Patient Education 2019 Subtextual. Follow Up Care 02/25/2021 11:22:41 With:Hank Robbins MD, Kailee Szymanski, URO Address: [facility] [address], [place] [address]- [phone] When:02/25/2022 [facility] chief complaint+Reason for visit Narrative* Chief [...] mellitus with hyperglycemia Medicare annual wellness visit, [facility] Work Phone: Evaluation + Plan note Future Appointments Appointment Date:03/10/2022 10:15:00 AM Scheduled Provider:Kailee Mckinney Jr., MD Location:[facility] Appointment Type:URO Office Visit Diagnostic Tests Pending * PSA Total 08/26/21 [facility] evaluation + Plan note Future Appointments Appointment Date:08/04/2022 10:00:00 AM Scheduled Provider:ANGELI GUY PA-C Location:[facility] Appointment Type:URO Office Visit [facility] evaluation + Plan note Future Appointments Appointment Date:02/03/2023 01:00:00 PM Scheduled Provider:ANGELI GUY PA-C Location:[facility] Appointment Type:URO [facility] + Plan note Future Appointments Appointment Date:04/28/2023 10:00:00 AM Scheduled Provider:Sara Bob MD Location:[facility] Appointment Type:URO Office Visit [facility] Evaluation noteNo InformationNort [employer] Other Evaluation noteNort [employer] Other Evaluation noteNo assessment information available [facility] Work Phone: Evaluation note* Diagnosis Onset Date Resolution Status Bilateral nephrolithiasis ac latasha Urinary retention with incomplete bladder emptying acute Pyelonephritis of right kidney noneactive Dietary counseling and surveillance acute Hyperlipidemia LDL goal <100 acute Primary hypertension acute Type 2 diabetes mellitus acu te Vitamin B 12 deficiency acut e [facility] Work Phone: Evaluation note* Diagnosis [...] of urine documented in this encounter [facility] Work Phone: Evaluation note* Diagnosis Onset [...] annual wellness visit, subsequent noneactive [facility] Work Phone: History general Narrative - Reported* Type Description Date Medical History hypertension Medical History hyperlipidemia Medical History DM2 Medical History obesity Medical History CAD- 50% occlusion LAD-Sees Dr Keila oro Surgical History appendectomy Surgical History RT knee surgery Surgical History arthroscopic knee surgery, left 01/17 Surgical History Cystoscopy 05/01/2020 Hospitalization History see above surgery [employer] Other History general Narrative - Reported* Type Description Date [...] EGD 1997 Hospitalization History see above surgery [facility] Other [facility] - [facility] Other Hospital course Narrative No data available for this section [facility] Hospital Discharge instructions No data available for this section [facility] [employer] Progress note No data available for this section [facility] reason for referral (narrative)* Consultation (Routine) - Authorized Specialty Diagnoses / Procedures Referred By Constantino su Referred To Contact Cardiology Diagnoses ASCVD (arteriosclerotic cardiovascular disease) Procedures Follow Up In Cardiology Jaleesa Conn MD [address] [facility] [address], [address] [address] Jaleesa Conn MD [address] [facility] [address], [address] [address] Referral ID Status Reason Start Date Expiration Date V isits Requested Visits Authorized [id number] Authorized 06/30/2023 06/29/2024 1 1 T [facility] Work Phone: Summary Purpose Family History [...] Advance Directives No August 04 8 10:15am Advance Directive Response Recorded Date/ Time Advance Directives No August 04 8 11:15am Chief Complaint * JOSEPH ESCALONA is [...] managed by [facility] * 4. Obesity. Encouraged more weight control [...] managed by [facility] * 4. Obesity. Encouraged more weight control [...] managed by [facility], recent A1c 7.2 * 4. Obesity. Encouraged [...] section and content) DATE CREATED AUTHOR [facility]16/2019 [facility] DATE CREATED AUTHOR AUTHOR'S ORGANIZ ATION 03/26/2020 [facility] DATE CREATED AUTHOR AUTHOR'S ORGANIZ ATION 06/15/2022 [facility] DATE CREATED AUTHOR AUTHOR'S ORGANIZ ATION 07/01/2022 [facility] Center DATE CREATED AUTHOR AUTHOR'S ORGANIZ ATION 07/02/2022 [facility] DATE CREATED AUTHOR AUTHOR'S ORGANIZ ATION 04/15/2023 [facility] DATE CREATED AUTHOR AUTHOR'S ORGANIZ ATION 07/08/2023 [facility] DATE CREATED AUTHOR AUTHOR'S ORGANIZ ATION 09/13/2023 [facility] DATE CREATED AUTHOR AUTHOR'S ORGANIZ ATION 11/10/2023 Maurisio [facility] REASON FOR VISIT (unrecogniz ed section [...] March 17, 2023 End: March 17, 2023 Clinical Sociologist Relationship Specialty Start Date End Date Dion Griggs DO PCP - General 08/15/19 Team Status: Active Member Role Status Dates Dion Griggs DO Primary Care Provide r, Attending Provider Active Start: June 29, 2023 Team Status: Inactive Member Role Status Dates Dion Griggs DO Primary Care Provider Active Start: July 13, 2023 End: July 13, 2023 David Raftery , RN Attending Provider Active St art: July 13, 2023 End: July 13, 2023 Team Status: Inactive Member Role Status Dates Dion Griggs , DO Primary Care Provide r, Attending Provider [...] BE BASED ON THE PRIMARY CLINICAL RECORDS. [facility]. provides no warranty or guarantee of the accuracy or completeness of information in this document.
[2023-11-30 15:10] LABS: Percent Iron Saturation 23.2 %
[2023-12-01 04:08] LABS: Vitamin B12 510 pg/mL (232-1245)
== END 2023-11-30 14:14 | disposition home or self-care (01) ==
LOC: LAB 14:15
PROVIDERS: PCP Internal Medicine; Visit Provider Internal Medicine
DX: D64.9 Anemia, unspecified (principal)
CPT/HCPCS: 36415; 82607; 82728; 83540; 83550

== ENCOUNTER 2024-09-07 15:28 | Outpatient (OUT) | payer MEDICARE, SELFPAY ==
--- OUTSIDE RECORDS SUMMARY | 2023-06-03 10:40 | XMS_ITS ---
Author Organization [facility] in [place] Address [address] [place] [address] Care Team Providers Care Juvenile Counselor Name Role Phone Dion Griggs DO Primary Care Provider Ton Wright Unavailable [phone] Allergies No Known Allergies REASON FOR VISIT self ref- Wants a second opinion- possibly switch urologist beronica Farmer w/ urination - pt has been seeing Dr. Bob--Has jen. Medications Medication SIG (Take, Route, Frequency, Duration) Notes Start Date End Date Status Aspirin 81 Active Vitamin B 12 Active Vitamin D3 Active Trulicity 1.5 MG/0.5ML as directed Subcutaneous Active Finasteride 5 MG 1 tablet Oral Once a day for 90 Days Not-Taking Simvastatin 40 MG Oral for 90 Days Active glipiZIDE 10 MG Oral for 90 Days Active metFORMIN HCl ER 500 MG Oral for 90 Days Active amLODIPine Besy-Benazepril HCl 5-20 MG Oral for 90 Days Active Basaglar KwikPen 100 UNIT/ML as directed Subcutaneous Act barbara Social History Alcohol Screen (Audit-C) Question Answer Notes Did you have a drink contain ing alcohol in the past year? Yes How often did you have a dri nk containing alcohol in the past year? Less than monthly (1 point) Points 1 Interpretation Negative Problems Problem Type SNOMED Code ICD Code Onset Dates Problem Status W/U Status Risk Notes Problem Benign prostatic hyperplasia with lower urinary tract symptoms, symptom details unspecified (N40.1) Active confirmed Vital Signs Height 66 in 06/03/2023 Weight 202 lbs 06/03/2023 BMI 32.60 kg/m2 06/03/2023 Procedures Procedure Date Ordered Date Performed Result Body Sit e Cystoscopy 06/03/2023 06/04/2023 N/A Encounters Encounter Location Date Provider Diagnosis Urology [facility] [address] [place] [address] 06/03/2023 Ton Rhodes Benign prostatic hyperplasia with lower urinary tract symptoms, symptom details unspecified N40.1 and Unspecified bulbous urethral stricture, 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 Resume CIC. Schedule for cysto. Plan Of Treatment Treatment Notes Assessment Notes Other DC kwan. Resume CIC. Schedule for cysto. Next Appt Details Follow Up: , Reason: cystosc opy Progress Notes * Joseph ESCALONADOB:1945 (77 yo M)Acc No.[id number]:06/03/2023 Progress Note Patient: Joseph Barksdale Provider: Kasi Rhodes MD :1945 A ge:77 Y S ex:Male Date:06/03/2023 Address:[address] [place], [place] [id number] Pcp:Dion Griggs, DO Check In:02:33 PM ESTCheck O ut:04:05 PM EST Subjective: * Chief Complaints: * s elf ref- Wants a second opinion- possibly switch urologist s. Trouble w/ urination - pt has been seeing Dr. Bob--Has jen. * HPI: U rology: We see Khanh (middle name) for BPH w PVR around 300mL. He cannot tolerate flomax. He had a TURP in 2020. BPH w/Obstr H ave you been told that you have prostate enlargement? N o * ROS: G eneral/Constitutional: Fever d enies. W eight loss d enies. F atigue or Weakness d enies. G enitourinary: Incontinence d enies. F requent urination d enies.�Painful urination d enies. B lood in Urine a dmits blood- HAS KWAN . � * Active Problem List N40.1 Benign prostatic hyp erplasia with lower urinary tract symptoms, symptom details unspecified Modified On:06/03/2023W/U Status:confirmed * Medical History: * Surgical History: A ppendectomy Carpal tunnel Cystoscopy TURP- Dr Mckinney 05/01/20Cystoscopy balloon dilation 03/25/23-Dr Bob * Hospitalization/Major Diagno stic Procedure: * Family History: B noe(s): prostate cancer . * Social History: D rugs/Alcohol: A lcohol Screen (Audit-C) D id you have a drink containing alcohol in the past year? Y es H ow often did you have a drink containing alcohol in the past year? L ess than monthly (1 point) P oints 1 I nterpretation N egative Caffeine I ntake: 3 -4 cups per day * Medications: T akingamLODIPine Besy-Benazepril HCl 5-20 MG Capsule Oral Aspirin 81 Basaglar KwikPen(Insulin Glargine) 100 UNIT/ML Solution Pen-injector as directed Subcutaneous glipiZIDE 10 MG Tablet Oral metFORMIN HCl ER 500 MG Tablet Extended Release 24 Hour Oral Simvastatin 40 MG Tablet Oral Trulicity(Dulaglutide) 1.5 MG/0.5ML Solution Pen-injector as directed Subcutaneous Vitamin B 12 Vitamin D3 Taking amLODIPine Besy-Benazepril HCl 5-20 MG Capsule Oral Taking Aspirin 81 Taking Basaglar KwikPen(Insulin Glargine) 100 UNIT/ML Solution Pen-injector as directed Subcutaneous Taking glipiZIDE 10 MG Tablet Oral Taking metFORMIN HCl ER 500 MG Tablet Extended Release 24 Hour Oral Taking Simvastatin 40 MG Tablet Oral Taking Trulicity(Dulaglutide) 1.5 MG/0.5ML Solution Pen-injector as directed Subcutaneous Taking Vitamin B 12 Taking Vitamin D3 Not-Taking/PRNFinasteride 5 MG Tablet 1 tablet Oral Once a dayMedication List reviewed and reconciled with the patientNot- Taking/PRN Finasteride 5 MG Tablet 1 tablet Oral Once a dayMedication List reviewed and reconciled with the patient * Allergies: N .K.D.A.no[Allergies Verified] Objective: * Vitals: W t:202 lbs, Ht:66 in, BMI:32.60 Index, Ht-cm:167.64 cm, Wt-k.63 kg. Assessment: * Assessment: 1. B enign prostatic hyperplasia with lower urinary tract symptoms, symptom details unspecified - N40.1 (Primary) 2 . U nspecified bulbous urethral stricture, male - N35.912 Plan: * Treatment: 2. O thers Notes: DC kwan. Resume CIC. Schedule for cysto. * Recommended Wellness and Pre vention Guidelines: * S tatus A lert L ast Done N ext Due A ction Taken C OMPLIANT F all Risk Assessment 0 06/03/2023 0 06/02/2024 D ocumented structured data - Fall Risk Assessment: * Procedure Codes: * Preventive Medicine: Screenings/Counseling: F ALL RISK SCREENING Fall Risk Assessment: N o falls in the past year * Follow Up: R clayton: cystoscopy * * Sign off status: Completed Visit Status: C HK (Check Out) true * Provider: Kasi Rhodes MD Date: 0 06/03/2023 Generated for Ava murphy/Vanessa/Kateitting on: 0 09/07/2024 03:31 PM EDT History and Physical Notes * HPI (History of Present Illness) Category Sub-Category Detail Notes Category Not es Urology BPH w/Obstr Have you been to ld that you have prostate enlargement?: No
--- OUTSIDE RECORDS SUMMARY | 2023-06-15 08:40 | XMS_ITS ---
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 Name Role Phone Dion Griggs DO Primary Care Provider Ton Wright [phone] REASON FOR VISIT [facility] cystoscopy - local - bkjose kahn/ Stella Encounters Encounter Location Date Provider Diagnosis [address] [address] 06/15/2023 Ton Rhodes Plan Of Treatment No Information Progress Notes * Joseph ESCALONADOB:1945 (77 yo M)Acc No.[id number]:06/15/2023 Progress Note Patient: Joseph VELAZQUEZ Provider: Kasi Rhodes MD :1945 A ge:77 Y S ex:Male Date:06/15/2023 Address:[address] [place], [place] [id number] Pcp:Dion Griggs DO Check Out:09:23 AM EST Subjective: * Chief Complaints: * 1 . [facility] - cystoscopy - local - radha kahn/ Stella. * Active Problem List N40.1 Benign prostatic hyp erplasia with lower urinary tract symptoms, symptom details unspecified Modified On:06/03/2023W/U Status:confirmed * Medical History: Objective: * Vitals: Assessment: Plan: * Treatment: * * Sign off status: Completed Visit Status: C HK (Check Out) true * Provider: Kasi Rhodes MD Date: 0 06/15/2023 Generated for Ava murphy/Vanessa/Renetta on: 0 09/07/2024 03:32 PM EDT
--- OUTSIDE RECORDS SUMMARY | 2023-12-14 09:00 | XMS_ITS ---
Author Organization [facility] in [place] Address [address] [place] [address] Care Team Providers Care Sausage Smoker Name Role Phone Dion Griggs DO Primary Care Provider Ton Wright [phone] Allergies No Known Allergies REASON FOR VISIT 6 mo f/u Medications Medication SIG (Take, Route, Frequency, Duration) Notes Start Date End Date Status Simvastatin 40 MG Oral for 90 Days Active Trulicity 1.5 MG/0.5ML as directed Subcutaneous Active Vitamin B 12 Active Vitamin D3 Active Finasteride 5 MG 1 tablet Oral Once a day for 90 Days Not-Taking Aspirin 81 Active Basaglar KwikPen 100 UNIT/ML as directed Subcutaneous Active glipiZIDE 10 MG Oral for 90 Days Active metFORMIN HCl ER 500 MG Oral for 90 Days Active Miscellaneous - 14 fr hydrophylic straight catheter per urethra QID for 90 days 12/14/2023 Active amLODIPine Besy-Benazepril HCl 5-20 MG Oral for 90 Days Active Social History Alcohol Screen (Audit-C) Question Answer Notes Did you have a drink contain ing alcohol in the past year? Yes How often did you have a dri nk containing alcohol in the past year? Less than monthly (1 point) Points 1 Interpretation Negative Vital Signs Height 66 in 12/14/2023 Weight 194 lbs 12/14/2023 BMI 31.31 kg/m2 12/14/2023 Encounters Encounter Location Date Provider Diagnosis [facility] [address] [place] [address] 12/14/2023 Ton Rhodes Unspecified bulbous urethral stricture, male N35.912 ; Benign prostatic hyperplasia with lower urinary tract symptoms, symptom details unspecified N40.1 and Urinary retention R33.9 Assessments Encounter Date Diagnosis (ICD Code) Assessment Notes Treatment Notes Treatment Clinical Notes Section Notes 12/14/2023 Unspecified bulbous urethral stricture, male (ICD-10 - N35.912) 12/14/2023 Benign prostatic hyperplasia with lower urinary tract symptoms, symptom details unspecified (ICD-10 - N40.1) 12/14/2023 Urinary retention (ICD-10 - R33.9) Order for catheters faxed to [facility], along with demographics and office visit . 12/14/2023 Other Continue CIC 4x daily Will check KUB next year and PSA and see back. Plan Of Treatment Medication Medication Name Sig Start Date Stop Date Notes Miscellaneous - [address] raight catheter per urethra QID for 90 days 12/14/2023 Treatment Notes Assessment Notes Urinary retention Order for catheters faxed to [facility], along with demographics and office visit . Other Continue CIC 4x daily Will check KUB next year and PSA and see back. Pending Test Test Name Order Date XR Abdomen AP (1 view) (KUB) * Future Test Test Name Order Date US Renals and Bladder 06/13/2024 PSA, TOTAL 06/13/2024 Next Appt Details Follow Up: 9 months, Reason: w KUB and renal US prior and PSA Progress Notes * Joseph ESCALONADOB:1945 (78 yo M)Acc No.[id number]:12/14/2023 Patient: Joseph VELAZQUEZ Provider: Kasi Rhodes MD :1945 A ge:78 Y S ex:Male Date:12/14/2023 Address:[address] [place], [place] [id number] Pcp:Dion Griggs, DO Check In:12:44 PM ESTCheck O ut:01:50 PM EST Subjective: * Chief Complaints: * 6 mo f/u * HPI: U rology: We see Bill (middle name) for BPH w PVR around 300mL and urinary retention. H e cannot tolerate flomax. He had a TURP in 2020. Nov 2023 he had bilateral ureteroscopy with laser with Sara Wray in mid 2023. He is doing CIC 4x daily with a 14F li for urinary retention. BPH w/Obstr H ave you been told that you have prostate enlargement? N o * ROS: G eneral/Constitutional: Fever d enies. W eight loss d enies. F atigue or Weakness d enies. G enitourinary: Incontinence d enies. F requent urination d enies.�Painful urination d enies. B lood in Urine d enies. * Active Problem List N40.1 Benign prostatic hyp erplasia with lower urinary tract symptoms, symptom details unspecified Modified On:06/03/2023W/U Status:confirmed * Medical History: * Surgical History: A ppendectomy Carpal tunnel Cystoscopy TURP- Dr Mckinney 05/01/20Cystoscopy balloon dilation 03/25/23-Dr Arellano kidney stone, stones removed * Hospitalization/Major Diagno stic Procedure: * Family History: Kasi liu(s): prostate cancer . * Social History: D rugs/Alcohol: A lcohol Screen (Audit-C) D id you have a drink containing alcohol in the past year? Y es H ow often did you have a drink containing alcohol in the past year? L ess than monthly (1 point) P oints 1 I nterpretation N egative Caffeine I ntake: 3-4 cups per day .. * Medications: T akingamLODIPine Besy-Benazepril HCl 5-20 [...] MG Tablet 1 tablet Oral Once a day Medication List reviewed and reconciled with the patientNot-Taking/PRN Finasteride 5 MG Tablet 1 tablet Oral Once a day Medication List reviewed and reconciled with the patient * Allergies: N .K.D.A.no[Allergies Verified] Objective: * Vitals: W t:194lbs, Ht: 66 in, BMI:31.31Index, Ht-cm: 167.64 cm, Wt-k kg. Assessment: * Assessment: 1. U nspecified bulbous urethral stricture, male - N35.912 (Primary) 2 . B enign prostatic hyperplasia with lower urinary tract symptoms, symptom details unspecified - N40.1 3 . U rinary retention - R33.9 Plan: * Treatment: 2. B enign prostatic hyperplasia with lower urinary tract symptoms, symptom details unspecified L AB: PSA, TOTAL (Ordered for 06/13/2024) I maging: US Renals and Bladder (Ordered for 06/13/2024) 3. U rinary retention Start Miscellaneous -, -, 14 fr hydrophylic straight catheter, per urethra, QID, 90 days, 360, Refills 3. I maging: XR Abdomen AP (1 view) (KUB) * Notes: Order for catheters faxed to [address] [place] [address], along with demographics and office visit . � 4. O thers Notes: Continue CIC 4x daily Will check KUB next year and PSA and see back. * Procedure Codes: * Follow Up: 9 months (Reason: w KUB and renal US prior and PSA) * * Sign off status: Completed Visit Status: [place] [facility] (Check Out) true * Provider: Kasi Rhodes MD Date: 1 Generated for Ava ng/Faramseyg/eTransmitting on: 0 09/07/2024 03:32 PM EDT History and Physical Notes * HPI (History of Present Illness) Category Sub-Category Detail Notes Category Not es Urology BPH w/Obstr Have you been to ld that you have prostate enlargement?: No
--- OUTSIDE RECORDS SUMMARY | 2024-09-07 15:32 | XMS_ITS | Encounter Summary ---
Author Organization [facility] Address [address] [place] [address] Phone Care Team Providers Care Event Designer Name Role Phone Dion Griggs DO Primary Care Provider [phone] Encounter Details Date Type Department Care Team (Late st Contact Info) Description 06/20/2021 Orders Only [facility] [address] [place] [address] Conversion, Onbase Social History Tobacco Use Types Packs/Day Years Used Date Smoking Tobacco: Never Assessed Sex and Gender Information Value Date Recorded Sex Assigned at Not on file Legal Sex Male 1:47 PM EST Gender Identity Not on file Sexual Orientation Not on file documented as of this encounter Plan of Treatment Upcoming Encounters Date Type Department Care Team (Late st Contact Info) Description 01/05/2025 1:10 PM EST Office Visit [facility] [address] [facility] [address] [place] [address] Jaleesa Conn MD [address] [facility], [address] [place] [address] Scheduled Orders Name Type Priority Associated Diagnoses Orde r Schedule OUTSIDE LAB SCAN Lab Ordered: 06/20/2021 documented as of this encounter Visit Diagnoses Not on filedocumented in this encounter Care Teams Event Designer Relationship Specialty Start Date End Date Dion Griggs DO PCP - General 08/15/19 documented as of this encounter
--- OUTSIDE RECORDS SUMMARY | 2024-09-07 15:32 | XMS_ITS | Encounter Summary ---
Author Organization [facility] Address [address] [place] [address] Phone Care Team Providers Care Corporate Operations Compliance Manager Name Role Phone Dion Griggs DO Primary Care Provider [phone] Encounter Details Date Type Department Care Team (Late st Contact Info) Description 06/10/2022 Orders Only [facility] [address] [place] [address] Conversion, Onbase Social History Tobacco Use Types [...] Description 01/05/2025 1:10 PM EST Office Visit [facility] [address] [facility] [address] [place] [address] Jaleesa Conn MD [address] [facility] [address], [address] [place] [address] Scheduled Orders Name Type Priority Associated Diagnoses Orde r Schedule OUTSIDE LAB SCAN Lab Ordered: 06/10/2022 documented as of this encounter Visit Diagnoses Not on filedocumented in this encounter Care Teams Corporate Operations Compliance Manager Relationship Specialty Start Date End Date Dion Griggs DO PCP - General 08/15/19 documented as of this encounter
--- OUTSIDE RECORDS SUMMARY | 2024-09-07 15:32 | XMS_ITS | Encounter Summary ---
Author Organization [facility] Address [address] [place] [address] Phone Care Team Providers Care Labor Conciliator Name Role Phone Dion Griggs DO Primary Care Provider [phone] Encounter Details Date Type Department Care Team (Late Contact Info) Description 04/04/2024 Scanned Document [facility] [address] [place] [id number] Scanning, Generic Provider Social History Tobacco Use Types Packs/Day Years Used Date Smoking Tobacco: Former Cigarettes S tarted: 1973 Smokeless Tobacco: Never Alcohol Use Standard Drinks/Week Comments Yes 0 (1 standard drink = 0.6 oz pur e alcohol) rarely Sex and Gender Information Value Date Recorded Sex Assigned at Not on file Legal Sex Male 1:47 PM EST Gender Identity Not on file Sexual Orientation Not on file documented as of this encounter Plan of Treatment Upcoming Encounters Date Type Department Care Team (Late st Contact Info) Description 01/05/2025 1:10 PM EST Office Visit [facility] [address] [facility] [address] [place] [address] Jaleesa Conn MD [address] [facility] [address], [address] [place], [place] [address] documented as of this encounter Visit Diagnoses Not on filedocumented in this encounter Additional Health Concerns Assessment Noted Time A fall risk assessment has been complete d for the patient 06/30/2023 11:00 AM EDT documented as of this encounter Care Teams Labor Conciliator Relationship Specialty Start Date End Date Dion Griggs DO PCP - General 08/15/19 documented as of this encounter
--- OUTSIDE RECORDS SUMMARY | 2024-09-07 15:32 | XMS_ITS | Clinical Summary ---
Author Organization [facility] Address [address] [place] [address] Care Team Providers Care Ghost Writer Name Role Phone Unavailable Primary Care Provider Unavailabl e Social History Tobacco Use Types Packs/Day Years Used Date Smoking Tobacco: Never Assessed Sex and Gender Information Value Date Recorded Sex Assigned at Not on file Legal Sex Male 7:18 PM EDT Gender Identity Not on file Sexual Orientation Not on file Last Filed Vital Signs Vital Sign Reading Time Taken Comments Blood Pressure 128/72 10/20/2018 12:00 PM EDT Pulse - - Temperature - - Respiratory Rate - - Oxygen Saturation - - Inhaled Oxygen Concentration - - Weight 90.7 kg (200 lb) 12/20/2018 12:00 PM EDT Height 165.1 cm (5' 5 ) 12/20/2018 12:00 PM EDT Body Mass Index 33.28 12/20/2018 12:00 PM EDT Plan of Treatment [place] [address]
--- OUTSIDE RECORDS SUMMARY | 2024-09-07 15:32 | XMS_ITS | Encounter Summary ---
Author Organization [facility] Address [address] [place] [address] Phone Care Team Providers Care Field Service Engineer Name Role Phone Dion Griggs DO Primary Care Provider [phone] Encounter Details Date Type Department Care Team (Late st Contact Info) Description 03/18/2021 Orders Only [facility] [address] [place] [address] Conversion, Onbase Social History Tobacco Use Types [...] Description 01/05/2025 1:10 PM EST Office Visit [facility] [address] [facility] [address] [place] [address] Jaleesa Conn MD [address] [facility], [address] [place] [address] Scheduled Orders Name Type Priority Associated Diagnoses Orde r Schedule OUTSIDE LAB SCAN Lab Ordered: 03/18/2021 documented as of this encounter Visit Diagnoses Not on filedocumented in this encounter Care Teams Field Service Engineer Relationship Specialty Start Date End Date Dion Griggs DO PCP - General 08/15/19 documented as of this encounter
--- OUTSIDE RECORDS SUMMARY | 2024-09-07 15:32 | XMS_ITS | Encounter Summary ---
Author Organization [facility] Address [address] [place] [address] Phone Care Team Providers Care Preconstruction Manager Name Role Phone Dion Griggs DO Primary Care Provider [phone] Encounter Details Date Type Department Care Team (Late st Contact Info) Description 05/09/2019 Orders Only [facility] [address] [place] [address] Conversion, Onbase Social History Tobacco Use Types [...] Description 01/05/2025 1:10 PM EST Office Visit [facility] [address] [facility] [address] [place] [address] Jaleesa Conn MD [address] [facility], [address] [place] [address] Scheduled Orders Name Type Priority Associated Diagnoses Orde r Schedule OUTSIDE LAB SCAN Lab Ordered: 05/09/2019 documented as of this encounter Visit Diagnoses Not on filedocumented in this encounter Care Teams Preconstruction Manager Relationship Specialty Start Date End Date Dion Griggs DO PCP - General 08/15/19 documented as of this encounter
--- OUTSIDE RECORDS SUMMARY | 2024-09-07 15:32 | XMS_ITS | Clinical Summary ---
Author Organization [facility] Address [address] [place] [address] Phone Care Team Providers Care Vmware Systems Administrator Name Role Phone Dion Griggs DO Primary Care Provider [phone] Allergies No known active allergies Medications aspirin 81 mg EC tablet Take 1 tablet (81 mg) by mouth every other day. Active cholecalciferol (Vitamin D-3) 25 MCG (1000 UT) tablet Take 1 tablet (1,000 Units) by mouth every other day. Active glipiZIDE (Glucotrol) 10 mg tablet Take 1 tablet (10 mg) by mouth once daily. Active insulin glargine (Basaglar KwikPen U-100 Insulin) 100 unit/mL (3 mL) pen Inject 31 Units under the skin. As directed. Active metFORMIN (Glucophage) 1,000 mg tablet Take 1 tablet (1,000 mg) by mouth 2 times daily (morning and late afternoon). Active dulaglutide (TRULICITY SUBQ) Inject under the skin 1 (one) time per week. Active cyanocobalamin (Vitamin B-12) 1,000 mcg tablet Take 1 tablet (1,000 mcg) by mouth every other day. Active atorvastatin (Lipitor) 40 mg tabletIndications: Mixed hyperlipidemia Take 1 tablet (40 mg) by mouth once daily. 90 tablet 3 04/12/19 25 026 Active amLODIPine-benazep riL (Lotrel) 5-20 mg capsuleIndications :Essential (primary) hypertension TAKE 1 CAPSULE ONCE DAILY 90 capsule 3 08/23/19 25 Active amLODIPine-benazep riL (Lotrel) 5-20 mg capsuleIndications :Essential (primary) hypertension Take 1 capsule by mouth once daily. 90 capsule 3 08/23/19 24 025 Discontinued Active Problems Problem Noted Date Diagnosed Date BMI 31.0-31.9,adult 06/30/2023 Obstructive sleep apnea syndrome 06/30/2023 Former smoker 04/08/2023 ASCVD (arteriosclerotic cardiovascular disease) 02/23/2023 Diabetes mellitus (Multi) 02/23/2023 Essential hypertension, benign 02/23/2023 Hyperlipidemia 02/23/2023 Back pain 02/23/2023 Encounters Date Type Department Care Team Description 08/22/2024 Refill [facility] [address] [address] Jaleesa Conn MD Essential (primary) hypertension from Last 3 Months Immunizations Immunization Administration Dates Next Due DTP 03/19/2020 Flu vaccine, trivalent, pres ervative free, HIGH-DOSE, age 65y+ (Fluzone) 12/06/2020 Influenza, Unspecified 12/10/2021,10/31/2019,03/2010 Josephine SARS-CoV-2 Vaccination 05/06/2020 Pneumococcal conjugate vacci ne, 13-valent (PREVNAR 13) 04/01/2015 Tdap vaccine, age 7 year and older (BOOSTRIX, ADACEL) 03/19/2020 Family History Medical History Relation Name Comments arterirosclerotic cardiovascular disease Father arteriosclerotic cardiovasular disease Mother Relation Name Status Comments Father Mother Social History Tobacco Use Types Packs/Day Years Used Date Smoking Tobacco: Former Cigarettes S tarted: 1973 Smokeless Tobacco: Never Tobacco Cessation:Counseling Given: Not Answered Alcohol Use Standard Drinks/Week Comments Yes 0 (1 standard drink = 0.6 oz pur e alcohol) rarely Sex and Gender Information Value Date Recorded Sex Assigned at Not on file Legal Sex Male 1:47 PM EST Gender Identity Not on file Sexual Orientation Not on file Last Filed Vital Signs Vital Sign Reading Time Taken Comments Blood Pressure 124/68 04/12/2024 11:48 AM EST Pulse 80 04/12/2024 11:48 AM EST Temperature - - Respiratory Rate - - Oxygen Saturation - - Inhaled Oxygen Concentration - - Weight 89.5 kg (197 lb 6.4 oz) 04/12/2024 11:48 AM EST Height 167.6 cm (5' 6 ) 04/12/2024 11:48 AM EST Body Mass Index 31.86 04/12/2024 11:48 AM EST Plan of Treatment Upcoming Encounters Date Type Department Care Team (Late st Contact Info) Description 01/05/2025 1:10 PM EST Office Visit [facility] [address] [place] [address] Jaleesa Conn MD [address] [place] [address] Health Maintenance Due Date Last Done Comments Diabetes: Hemoglobin A1C 1945 Diabetes: Urine Protein Screening 1945 Lipid Panel 1945 Zoster Vaccines (1 of 2) 1994 RSV High Risk: (Elderly (60+) or Population) (1 - 1-dose 75+ series) 07/15/2019 COVID-19 Vaccine (2 - season) 2023 05/06/2020 Medicare Annual Wellness Visit (AWV) 09/06/2024 09/06/2023, 09/02/2022, 09/03/2021, Additional history exists Influenza Vaccine (#1) 2024 , 12/02/2022, 12/10/2021, Additional history exists Diabetes: Retinopathy Screening 09/19/2025 09/20/2023, 09/14/2022, 08/15/2021, Additional history exists DTaP/Tdap/Td Vaccines (3 - Td or Tdap) 03/19/2030 03/19/2020, 03/19/2020 Pneumococcal Vaccine Completed 04/01/2015, 03/01/2015, 02/27/2015, Additional history exists HIB Vaccines Aged Out No longer eligi ble based on patient's age to complete this topic HPV Vaccines (No Doses Required) Completed Hepatitis A Vaccines Aged Out No long er eligible based on patient's age to complete this topic Hepatitis B Vaccines Aged Out No long er eligible based on patient's age to complete this topic IPV Vaccines Aged Out No longer eligi ble based on patient's age to complete this topic Meningococcal Vaccine Aged Out No chiqui logan eligible based on patient's age to complete this topic Rotavirus Vaccines Aged Out No longer eligible based on patient's age to complete this topic Insurance MEDICARE RAILROAD MEDICARE RAILROAD Care Teams Vmware Systems Administrator Relationship Specialty Start Date End Date Dion Griggs DO PCP - General 08/15/19
--- OUTSIDE RECORDS SUMMARY | 2024-09-07 15:32 | XMS_ITS | Clinical Summary ---
Author Organization [facility] Address [id number] [address] [place] [address] Care Team Providers Care Occupational Medicine Physician Name Role Phone Dion Griggs DO Primary Care Provider [phone] Allergies No known active allergies Medications lisinopril (PRINIVIL,ZESTRI L) 20 mg tablet Take 20 mg by mouth daily. Active simvastatin (ZOCOR) 40 mg tablet Take 40 mg by mouth nightly. Active glipiZIDE (GLUCOTROL XL) 10 mg 24 hr tablet Take 10 mg by mouth daily. Active metFORMIN (GLUCOPHAGE) 1000 mg tablet Take 1,000 mg by mouth daily with breakfast. Active aspirin 81 mg Take 81 mg by mouth daily. Active cholecalciferol, vitamin D3, 400 units tablet Take 400 Units by mouth every 14 (fourteen) days. Active omega-3 fatty acids-fish oil (FISH OIL) 300-1,000 mg capsule Take 2 g by mouth every other day. Active insulin glargine (LANTUS, BASAGLAR) 100 unit/mL (3 mL) insulin pen Inject 27 Units under the skin nightly. Active dulaglutide (TRULICITY) 1.5 mg/0.5 mL pen injector Inject under the skin. Active Social History Tobacco Use Types Packs/Day Years Used Date Smoking Tobacco: Former Smokeless Tobacco: Never Alcohol Use Standard Drinks/Week Comments Yes 0 (1 standard drink = 0.6 oz pur e alcohol) rare Childcare Answer Date Recorded Childcare Unknown 08/10/2018 Employment Answer Date Recorded Employment Unknown 08/10/2018 Purpose - Life Answer Date Recorded Purpose and direction in life Unknown Sex and Gender Information Value Date Recorded Sex Assigned at Not on file Legal Sex Male 11:27 AM EDT Gender Identity Not on file Sexual Orientation Not on file Last Filed Vital Signs Vital Sign Reading Time Taken Comments Blood Pressure 139/78 01/04/2019 10:30 AM EST Pulse 78 01/04/2019 10:30 AM EST Temperature 36.7 C (98.1 F) 01/04/2019 9:22 AM EST Respiratory Rate 19 01/04/2019 9:51 AM EST Oxygen Saturation 95% 01/04/2019 10:30 AM EST Inhaled Oxygen Concentration - - Weight 88.5 kg (195 lb) 01/04/2019 8:15 AM EST Height 167.6 cm (5' 6 ) 01/04/2019 8:15 AM EST Body Mass Index 31.47 01/04/2019 8:15 AM EST Plan of Treatment Health Maintenance Due Date Last Done Comments Depression Screening 1957 Tobacco Screening 1957 DTaP,Tdap and Td Vaccines (1 - Tdap) 07/15/1963 Zoster (Shingles) Vaccine (1 of 2) 1994 Fall Risk Screening 2009 Influenza Vaccine 10/30/2024 Medical Devices Not on file Insurance MEDICARE [facility] Care Teams Occupational Medicine Physician Relationship Specialty Start Date End Date Dion Griggs DO [address] [place] [address] PCP - General Internal Medicine 12/20/18
--- OUTSIDE RECORDS SUMMARY | 2024-09-07 15:32 | XMS_ITS | Patient Health Record ---
Author Organization [facility] [place] Address [address] [place] [address] Care Team Providers Care Regional Director Of Admissions Name Role Phone Dion Griggs DO Primary Care Provider Ton Wright Unavailable [phone] Allergies No Known Allergies Reason For Referral No Information Medications Medication SIG (Take, Route, Frequency, Duration) Notes Start Date End Date Status Simvastatin 40 MG Oral for 90 Days Active Trulicity 1.5 MG/0.5ML as directed Subcutaneous Active Vitamin B 12 Active Vitamin D3 Active Finasteride 5 MG 1 tablet Oral Once a day for 90 Days Not-Taking amLODIPine Besy-Benazepril HCl 5-20 MG Oral for 90 Days Active Aspirin 81 Active Basaglar KwikPen 100 UNIT/ML as directed Subcutaneous Active glipiZIDE 10 MG Oral for 90 Days Active metFORMIN HCl ER 500 MG Oral for 90 Days Active Miscellaneous - 14 fr hydrophylic straight catheter per urethra QID for 90 days 12/14/2023 Active Social History Alcohol Screen (Audit-C) Question [...] Active confirmed Vital Signs Height 66 in 12/14/2023 Weight 194 lbs 12/14/2023 BMI 31.31 kg/m2 12/14/2023 Encounters Encounter Location Date Provider Diagnosis Urology [facility] [address] [place] [address] 12/14/2023 Ton Rhodes Unspecified bulbous urethral stricture, [...] - R33.9) Order for catheters faxed to [address] [place] [address], along with demographics and office visit . 12/14/2023 Other Continue CIC 4x daily Will check KUB next year and PSA and see back. Plan Of Treatment Pending Test Test Name Order Date XR Abdomen AP (1 view) (KUB) * 4 Future Test Test Name Order Date US Renals and Bladder 06/13/2024 PSA, TOTAL 06/13/2024 Insurance Providers Payer Name Payer Address Payer Phone Subscriber Number Group Number Insured Name Patient Relationship to Insured Coverage Start Date Coverage End Date MEDICARE RAILROAD [address] [address] [place], [place] [id number] Joseph Connolly Self - patient is the insured 0 [facility] [address] [place] [address] [id number] Joseph Connolly Self - patient is the insured 0 Medical (General) History Medical History History ICD Code Diabetes Hypertension High cholesterol Hx of covid 2020 sleep apnea Surgical History Surgery Date(Month/Year) stent kidney stone, stones removed 10/20 4 Cystoscopy balloon dilation 03/25/23-Dr Marla valdovinos Appendectomy Carpal tunnel Cystoscopy TURP- Dr Mckinney 05/01/20
[2024-09-07 16:01] LABS: Hematocrit 41.3 % (42.0-54.0); Hemoglobin 14.3 g/dL (14.0-18.0); Immature Granulocytes Abs Auto 0.03 10^3/uL (0.00-0.03); Immature Granulocytes Pct Auto 0.4 % (0.0-0.5); Lymphocytes Absolute Auto 1.6 10^3/uL (1.2-3.8); Mean Corpuscular HGB Conc 34.6 g/dL (29.9-35.2); Mean Corpuscular Hemoglobin 30.3 pg (25.9-34.0); Mean Corpuscular Volume 87.5 fL (80.0-94.0); Platelet Count 201 10^3/uL (150-450); Red Blood Count 4.72 10^6/uL (4.70-6.10); White Blood Count 7.4 10^3/uL (4.0-11.0)
[2024-09-07 16:30] LABS: Alanine Aminotransferase 31 U/L (16-63); Albumin Globulin Ratio 1.2; Albumin Level 3.9 g/dL (3.4-5.0); Alkaline Phosphatase 49 U/L (46-116); Anion Gap 11.7; Aspartate Amino Transferase 23 U/L (15-37); Blood Urea Nitrogen 17.0 mg/dL (7.0-18.0); Calcium 9.0 mg/dL (8.5-10.1); Carbon Dioxide 29.2 mmol/L (21.0-32.0); Chloride 105 mmol/L (98-107); Cholesterol 93 mg/dL (<=200); Estimated GFR (African America >60 (>=60 mL/min/1.73m^2); Estimated GFR (Non-African Ame >60 (>=60 mL/min/1.73m^2); Globulin 3.2 g/dL; Glucose 89 mg/dL (74-106); HDL Cholesterol 51 mg/dL (40-60); Potassium 3.9 mmol/L (3.5-5.1); Sodium 142 mmol/L (136-145); Total Protein 7.1 g/dL (6.4-8.2); Triglycerides 77 mg/dL (<=150); VLDL CHOLESTEROL 15.4 mg/dL
--- OUTSIDE RECORDS SUMMARY | 2024-09-07 18:23 | XMS_ITS | CCD ---
Author Organization [facility] Providers Care Tool Filer Name Role Phone CACHORRO ROBLERO Referring Unavailable [...] Care Unavailable MAPUS, TONDRA Consulting Unavailable HANK Valetne, DR KAILEE Szymanski Admitting Unavaila hemal Valente, DR KAILEE Szymanski Attending Unavaila ble GABRIEL, DR LOPEZ Primary Care Unavailable HANK Valente, DR KAILEE Szymanski Consulting Unavaila Dion Soto Unavailable Jaleesa Conn Attending Unavailable Jaleesa Conn Referring Unavailable Dr. Dion Griggs [place] [facility] Unavai lable Mapus, Tondra K Attending Unavailable Mapus, Tondra K Admitting Unavailable Dion Griggs Primary Care Unavailable Dion Griggs DO Primary Care Provider Sara Bob Referring Unavailable Lue Sara MSidra Attending Unavailable ANGELI GUY Attending Unavailable Lue, Sara MSidra Attending Unavailable Lue, Sara MSidra Attending Unavailable BROOKS, ANGELI E Attending Unavailable Lue, Sara MSidra Attending Unavailable BROOKS, ANGELI Montiel Attending Unavailable Lue, Sara MSidra Referring Unavailable Lue, Sara MSidra Admitting Unavailable Lue, Sara MSidra Attending Unavailable Lue, Sara M. Attending Unavailable Sara Bob Referring Unavailable Dion Griggs DO Primary Care Provider JALEESA CONN Attending Unavailable DION GRIGGS Primary Care Unavailable JALEESA CONN Attending Unavailable JALEESA CONN Referring Unavailable DION GRIGGS Primary Care Unavailable Dion Griggs DO Primary Care Provider [phone] Dion Griggs DO Attending Provider Allergies Allergy Classification Reported Allergen(s) Allergy Type Date of Onset Reaction(s) Facility (3 sources) patient allergy list reviewed by nurse or physicia Propensity to adverse reactions Comment:Done [employer] Other Medications Current Medications Medication Drug Class(es) Dates Sig (Normalized) Sig (Original) amLODIPine 5 mg / benazepril hydrochloride 20 mg oral capsule (15 sources) Dihydropyridine Calcium Channel Laura, Angiotensin Converting Enzyme Inhibitor Start: 08-23-2023 take 1 capsule by mouth once daily Amlodipine-Benaz epril 5-20 mg capsule Active 1 CAP PO Daily December 29, 2023 12:00am Complies with drug therapy Start: 08-04-2022 amLODIPine-kierra azepril 5 mg-20 mg Cap Refill(s) 0 Start [...] Inhibitor, Nonsteroidal Anti-inflammatory Drug Start: 05-24-2023 take 1 tablet by mouth every other day Aspirin 81 mg tablet,delayed release (DR/EC) Active 81 MG PO .QOD May 24, 2023 12:00am Complies with drug therapy Start: 03-05-2020 aspirin 81 mg oral tablet Daily Start Date: 03/05/20 Status: Ordered take 1 tablet by lorena th every other day Aspir-Low 81 MG 1 tablet Orally every other day Active atorvastatin 40 mg oral tablet (1 source) HMG-CoA Reductase Inhibitor Start: 04-12-2024 End: 04-12-2025 take 1 tablet by mouth once daily atorvastatin (Lipitor) 40 mg tablet Indications: Mixed hyperlipidemia Take 1 tablet (40 mg) by mouth once daily. 90 tablet 3 04/12/2024 04/12/2025 Active azithromycin 250 mg oral tablet (5 sources) Macrolide Antimicrobial Start: 07-02-2022 Azithromycin 250 MG as directed Orally daily for 5 days June, Active b complex 0.4 mg tablet (1 source) End: 06-30-2023 take 1 tablet by mouth once daily b complex 0.4 mg tablet Take 1 tablet by mouth once daily. 06/30/2023 Discontinued (Therapy completed) cholecalciferol 0.025 mg oral capsule (20 sources) Vitamin D Start: 06-24-2023 take 1 capsule by mouth every other day Cholecalciferol (Vitamin D3) 25 mcg (1,000 unit) capsule Active 25 MCG PO .every other day June 24, 2023 1:38pm Complies with drug therapy Start: 05-24-2023 End: 06-24-2023 take 1 capsule by mouth once daily Cholecalciferol (Vitamin D3) 25 mcg (1,000 unit) capsule Discontinued 25 MCG PO Daily May 24, 2023 12:00am June 24, 2023 1:41pm take [address] tablet [address] [facility] every other day cholecalciferol (Vitamin D-3) 25 MCG (1000 UT) tablet Take 1 tablet (1,000 Units) by mouth every other day. Active take 1 capsule by [facility] every twenty-four hours Vitamin D3 25 MCG (1000 UT) 1 capsule Orally Once a day Active take 1 capsule by [facility] every week Vitamin D3 10 MCG (400 UNIT) Oral Capsule 1 CAPSULE EVERY WEEK Quantity: 0 Refills: 0 Ordered: 06-Jan-2021 DO Active 0.5 ml dulaglutide 3 mg/ml auto-injector (20 sources) GLP-1 Receptor Agonist Start: 02-25-2021 Dulaglutide 1.5 mg/0 .5 mL pen injector Active 1.5 MG SUBCUT every week May 24, 2023 12:00am Complies with drug therapy dulaglutide (NILAM LICITY SUBQ) Inject under the [...] 1 capsule Orally every other day Active 3 ml insulin glargine 100 unt/ml pen injector (20 sources) Insulin Analog Start: 04-04-2024 Insulin Glargi ne (Basaglar Kwikpen U-100 Insulin) 100 unit/mL (3 mL) insulin pen Active 28 UNIT SUBCUT Every morning April 04, 2024 3:02pm Complies with drug therapy Start: 03-06-2024 End: 04-04-2024 Insulin Glargine (Basaglar K wikpen U-100 Insulin) 100 unit/mL (3 mL) insulin pen Discontinued 30 UNIT SUBCUT Every morning March 06, 2024 2:51pm April 04, 2024 3:03pm Start: 12-29-2023 End: 03-06-2024 Insulin Glargine (Basaglar K wikpen U-100 Insulin) 100 unit/mL (3 mL) insulin pen Discontinued 20 UNIT SUBCUT Every morning December 29, 2023 4:47pm March 06, 2024 2:51pm Start: 12-29-2023 End: 12-29-2023 Insulin Glargine (Basaglar K wikpen U-100 Insulin) 100 unit/mL (3 mL) insulin pen Discontinued 23 UNIT SUBCUT Daily at bedtime December 29, 2023 2:15pm December 29, 2023 4:47pm Start: 06-24-2023 End: 12-29-2023 Insulin Glargine (Basaglar K wikpen U-100 Insulin) 100 unit/mL (3 mL) insulin pen Discontinued 32 UNIT SUBCUT Daily at bedtime June 24, 2023 1:40pm December 29, 2023 2:16pm Start: 05-24-2023 End: 06-24-2023 Insulin Glargine (Basaglar [...] As Directed Start Date: 03/05/20 Status: Ordered omega 1-wdv-szx-fish oil (Fish OiL) 1,000 mg (120 mg-180 mg) capsule (2 sources) End: 04-12-2024 take 2 capsules by mouth every other day omega 4-gul-goo-fish oil (Fish OiL) 1,000 mg (120 mg-180 mg) capsule Take 2 capsules (2,000 mg) by mouth every other day. 04/12/2024 Discontinued (Therapy completed) take 2 capsules by m outh every other day omega 3-fkm-xys-fish oil (Fish OiL) 1,00 0 mg (120 mg-180 mg) capsule Take 2 capsules (2,000 mg) by mouth every other day. Active 24 hr oxybutynin chloride 5 mg extended release oral tablet (1 source) Cholinergic Muscarinic Antagonist Start: 10-05-2023 End: 11-04-2023 take 1 tablet by mouth three times daily as needed for muscle spasms oxybutynin 5 mg ER Tab 5 mg = 1 tab(s), Oral, TID, PRN Other (see comment), Take PRN due to bladder spasms/discomfort., X 30 day(s), # 90 tab(s), Refills(s) 0, Pharmacy: [facility]/pharmacy #[id number], 168, cm, 04/28/23 10:08:00 EST, Height/Length Dosing, 93, kg, 04/28/23 10:08:00 EST, Weight Dosing Start Date: 10/05/23 Stop Date: 11/04/23 Status: Ordered rosuvastatin calcium 20 mg oral tablet (6 sources) HMG-CoA Reductase Inhibitor Start: 09-07-2023 End: 04-12-2024 take 1 tablet by mouth once daily Rosuvastatin 20 mg tablet Active 20 MG PO Daily December 29, 2023 12:00am Complies with drug therapy 0.25 mg, 0.5 mg dose 1.5 ml semaglutide 1.34 mg/ml pen injector (3 sources) Start: 08-26-2020 Ozempic (0.25 or 0.5 MG/DOSE) 2 MG/1.5ML 0.5mg Subcutaneous once weekly Jul, Active sulfacetamide sodium 100 mg/ml ophthalmic solution (5 [...] Daily, # 30 cap(s), Refills(s) 11, Pharmacy: [facility]/pharmacy #[id number], 168, cm, 02/25/22 9:50:00 EST, Height/Length Dosing, 84.2, kg, 02/25/22 9:50:00 EST, Weight Dosing Start Date: 02/25/22 Status: Ordered Vitamin B Complex (11 sources) Vitamin B Comple x - as directed Orally Active vitamin b12 1 mg oral tablet (2 sources) Vitamin B12 take 1 tablet by mouth [...] Sig (Original) amLODIPine 5 mg oral tablet (18 sources) Dihydropyridine Calcium Channel Laura Start: 05-24-2023 End: 12-29-2023 take 1 tablet by mouth once daily Amlodipine 5 mg tablet Discontinued 5 MG PO Daily May 24, 2023 12:00am December 29, 2023 2:12pm Start: 06-30-2022 take 1 tablet by lorena th every twenty-four hours amLODIPine Besylate 5 MG 1 tablet Orally Once a day June, Active B-Complex With Vitamin C (6 sources) Start: 05-24-2023 End: 06-24-2023 take 1 tablet by mouth once daily B-Complex With Vitamin C Discontinued 1 TAB PO Daily May 24, 2023 12:00am June 24, 2023 1:38pm Start: 05-24-2023 take 1 tablet by lorena th once daily B-Complex With Vitamin C Active 1 TAB PO Daily May 24, 2023 12:00am B-Complex With Vitamin C tablet (3 sources) Start: 05-24-2023 End: 06-24-2023 take 1 tablet by mouth once daily B-Complex With Vitamin C tablet Discontinued 1 TAB PO Daily May 24, 2023 12:00am June 24, 2023 1:38pm Start: 05-24-2023 End: 06-24-2023 take 1 tablet by mouth once daily B-Complex With Vitamin C tablet Discontinued 1 TAB PO Daily May 23, 2023 11:00pm June 24, 2023 12:38pm cefdinir 300 mg oral capsule (7 sources) Cephalosporin Antibacterial Start: 07-02-2023 End: 09-06-2023 take 1 capsule by mouth twice daily Cefdinir 300 mg capsule Discontinued 300 MG PO Twice daily July 02, 2023 12:00am September 06, 2023 [...] Reductase Inhibitor Start: 02-25-2022 End: 06-30-2023 take 1 tablet by mouth once daily Finasteride 5 mg tablet Discontinued 5 MG PO Daily May 24, 2023 12:00am June 24, 2023 1:40pm Fish Oil 1000 MG Oral Capsule Delayed Release (7 sources) take 1 capsule by mouth every other day Fish Oil 1000 MG Oral Capsule Delayed Release TAKE 1 CAPSULE EVERY OTHER DAY Quantity: 0 Refills: 0 Ordered: 06-Jan-2021 DO Active glipiZIDE 10 mg oral tablet (20 sources) Sulfonylurea Start: 02-28-2020 End: 12-29-2023 take 1 tablet by mouth once daily Glipizide 10 mg tablet Discontinued 10 MG PO Daily May 24, 2023 12:00am December 29, 2023 4:45pm glipiZIDE 10 MG TAKE 1 TABLET TWICE [...] Jul, Not-Taking levoFLOXacin 500 mg oral tablet (7 sources) Quinolone Antimicrobial Start: 06-28-2023 End: 07-02-2023 take 1 tablet by mouth once daily Levofloxacin 500 mg tablet Discontinued 500 MG PO Daily 14 June 28, 2023 12:00am July 02, 2023 1:03pm lisinopril 10 mg oral tablet (20 sources) Angiotensin Converting Enzyme Inhibitor Start: 05-24-2023 End: 06-24-2023 take 1 tablet by mouth once daily Lisinopril 10 mg tablet Discontinued 10 MG PO Daily May 24, 2023 12:00am June 24, 2023 1:40pm Start: 02-28-2020 End: 06-30-2023 take 1 tablet by mouth once daily lisinopril 20 mg Tab 20 mg = 1 tab(s), Oral, Daily Start Date: 02/28/20 Status: Ordered take 1 tablet by lorena th every twenty-four hours Lisinopril 10 mg 1 tablet Orally daily Active 24 hr metFORMIN hydrochloride 500 mg extended release oral tablet (20 sources) Biguanide Start: 06-24-2023 End: 12-29-2023 take 1 tablet by mouth twice daily at dinner Metformin 500 mg tablet extended release 24 hr Discontinued 0 PO Twice daily December 29, 2023 2:16pm December 29, 2023 4:45pm orally twice daily; 2 tablet with breakfast and 1 tablet with dinner Start: 06-24-2023 End: 12-29-2023 take 1 tablet by mouth twice daily at dinner Metformin 500 mg tablet extended release 24 hr Discontinued 500 MG PO Twice daily June 24, 2023 1:40pm December 29, 2023 2:16pm 2 tablet with breakfast and 1 tablet with dinner Start: 05-24-2023 End: 06-24-2023 take 1 tablet by mouth once daily at dinner Metformin 500 mg tablet extended release 24 hr Discontinued 500 MG PO Daily May 24, [...] 1 tablet by lorena th twice daily metFORMIN (Glucophage) 1,000 mg tablet Take 1 tablet (1,000 mg) by mouth 2 times daily (morning and late afternoon). Active take 2 tablets by mo [facility] once at breakfast, then take 1 tablet by mouth twice daily at dinner metFORMIN HCl ER 500 MG 2 tablet with breakfast and 1 tablet with dinner Orally BID Pt could not tolerate IR metformin d/t g/i s/e Active [place] 4-Sku-Awd-Fish Oil (Fish Oil) 1,000 mg (120 mg-180 mg) capsule (9 sources) Start: 05-24-2023 End: 06-24-2023 take 1 capsule by mouth once daily [place] 2-Qis-Wgf-Fish Oil (Fish Oil) 1,000 mg (120 mg-180 mg) capsule Discontinued 1 CAP PO Daily May 23, 2023 11:00pm June 24, 2023 12:40pm Start: 05-24-2023 End: 06-24-2023 take 1 capsule by mouth once daily [place] 4-Ypt-Qzr-Fish Oil (Fish Oil) 1,000 mg (120 mg-180 mg) capsule Discontinued 1 CAP PO Daily May 24, 2023 12:00am June 24, 2023 1:40pm Start: 05-24-2023 take 1 capsule by mo [facility] once daily [place] 6-Igf-Ndi-Fish Oil (Fish Oil) 1,000 mg (120 mg-180 [...] E11.9 bid for 90 days Apr, Active simvastatin 40 mg oral tablet (20 sources) HMG-CoA Reductase Inhibitor Start: 03-05-2020 End: 06-13-2024 take 1 tablet by mouth once daily Simvastatin 40 mg tablet Discontinued 40 MG PO Daily May 24, 2023 12:00am December 29, 2023 2:13pm traMADol hydrochloride 50 mg oral tablet (9 sources) Opioid Agonist Start: 05-24-2023 End: 06-24-2023 take 1 tablet by mouth every four hours as needed Tramadol 50 mg tablet Discontinued 50 MG PO Every 4 hours as needed May 24, 2023 12:00am June 24, 2023 1:41pm Trulicity SOPN (4 sources) Trulicity SOPN U SE DIRECTED Quantity: 0 Refills: 0 Ordered: 01-Jul-2021 DO Active Vitamin B Complex CAPS (2 sources) Vitamin B Comple x CAPS TAKE 1 CAPSULE Daily Quantity: 0 Refills: 0 Ordered: 30-Jun-2022 DO Active Problems Active Problems Problem Classification Problem Date Documented Date Episodic/Chronic Administrative/social admission (8 sources) Dietary counseling and surveillance; 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: [Dietary surveillance and counseling] Episodic Biliary tract disease (4 sources) Cholelithiasis without obstruction; 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: [Calculus of gallbladder without cholecystitis without obstruction] Episodic Calculus of urinary tract (10 sources) Kidney stone; 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: [Calculus of kidney] Onset: 11-09-2023 05-24-2023 Episodic Coronary atherosclerosis and other heart disease (20 sources) Arteriosclerotic vascular disease; 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: [Cardiovascular disease, unspecified] Onset: 09-25-2015 02-28-2020 Chronic Comment on above: LHC: 50% LAD - 2009, Stress Test: no ischemia - 2019, Deficiency and other anemia (14 sources) Pernicious anemia; 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: [Vitamin B12 deficiency anemia due to intrinsic factor deficiency] Episodic Deficiency and other anemia (7 sources) Anemia; 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: [Anemia, unspecified] 09-06-2023 Episodic Deficiency and other anemia (3 sources) Anemia, unspecified; 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: [Anemia, unspecified] 09-06-2023 Episodic [...] Chronic Immunizations and screening for infectious disease (19 sources) Patient encounter status; 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: [Other specified [...] [Vitamin D deficiency, unspecified] Chronic Nutritional deficiencies (17 sources) Deficiency of other specified B group vitamins; 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: [Cobalamin deficiency] Onset: 06-15-2022 Episodic Osteoarthritis (20 sources) Osteoarthritis of right knee joint; 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: [Arthritis of right knee] 02-28-2020 Chronic Other aftercare (20 sources) Long-term current use of insulin; 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: [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] 05-24-2023 Episodic Other aftercare (4 sources) Long-term current use of drug therapy; 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: [Other manager long term care (current) drug therapy] Episodic Other connective tissue disease (3 sources) Foot pain; 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: [Pain in right foot] 12-29-2023 Episodic Other connective tissue disease (5 sources) Pain in right foot; 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: [Pain in limb] 12-29-2023 Episodic Other connective tissue disease (1 source) Pain in right foot; 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: [Pain in right foot] 12-29-2023 Episodic Other diseases of bladder and urethra [...] nutritional; endocrine; and metabolic disorders (20 sources) Body mass index 30+ - obesity; 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: [Body mass index (BMI) 32.0-32.9, adult] Onset: 06-30-2023 05-24-2023 Chronic Other nutritional; endocrine; and metabolic disorders (20 sources) Obese class I; 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: [Body mass index (BMI) 31.0-31.9, adult] Onset: 09-25-2015 04-12-2024 Chronic Other nutritional; endocrine; and metabolic disorders [...] (BMI) 32.0-32.9, adult] Onset: 06-30-2023 Chronic Other nutritional; endocrine; and metabolic disorders (6 sources) Body mass index (BMI) 31.0-31.9, adult; 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: [Body Mass Index 31.0-31.9, adult] Onset: 04-12-2024 12-29-2023 Chronic Other screening for suspected conditions (not [...] Onset: 05-24-2018 02-28-2020 Chronic Residual codes; unclassified (7 sources) Obstructive sleep apnea (adult) (pediatric); 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: [Obstructive sleep apnea (adult)(pediatric)] Onset: 06-30-2023 Chronic Substance-related disorders (4 sources) Tobacco user; 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: [...] [Other chest pain] Resolved: 1 Episodic Other aftercare (6 sources) 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; 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: [retirement (current) use of insulin (Multi)] Onset: 3 Episodic Other diseases of kidney and ureters [...] 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: [Acute maxillary sinusitis] Onset: 8 Episodic Screening and history of mental health and substance abuse codes (13 sources) Ex-smoker; 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: [Personal history of tobacco use] Onset: 4 06-30-2023 Episodic Spondylosis; intervertebral disc disorders; other back problems (8 sources) Thoracic back pain; 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: [Pain in [...] use of other medications] Onset: 7 Unclassified (2 sources) Onset: 4 06-30-2023 Viral infection (7 sources) Disease caused by 2019-nCoV; 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: [Other specified viral infection] Resolved: 3 Episodic Viral infection (4 sources) Disease caused by 2019-nCoV; 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: [COVID-19] Resolved: 1 Results Test Name Value Interpretation Reference Range Facility Consultation/Specialist Note on 08-07-2024 Consultation/Specialis t Note [id number] IFF [facility] HbA1c HPLC (Bld) [Mass fract ion]on 12-29-2023 HbA1c (Bld) [Mass fraction] Hemoglobin A1c/Hemoglobin.total in Blood by HPLC [facility] No Panel Informationon 12-28 Bedside Glucose 128 [facility] Iron binding capacity [Mass/ volume] in Serum or Plasmaon 11-30-2023 Iron binding capacity [Mass/Vol] 310.0 ug/dL 250.0-450. 0 [facility] Iron saturation [Mass Fracti on] in Serum or Plasmaon 11-30-2023 Iron saturation [Mass fraction] 23.2 % [facility] Laboratory - Chemistry and C hemistry - challengeon 11-30-2023 Cobalamin (Vitamin B12) [Mass/Vol] 510 pg/mL 232-1245 [facility] Comment on above: Performed at: [facility] [employer] [place] [id number] Director: Jack Carvajal PhD, Phone: [phone] Ferritin [Mass/Vol] 115.0 ng/mL 26.0-388.0 [facility] Iron [Mass/Vol] 72.0 ug/dL 65.0-175.0 [facility] Inpatient Patient Summaryon 11-09-2023 Inpatient Patient Summary Inpatient Patient Summary [place] [address] Clinical Summary Person Information Name: JOSEPH ESCALONA Age: 78 Years : 1945 Sex: Male PCP: DION GRIGGS DO Marital Status: Race: White Ethnicity: Non- or Language: Azeri Visit Id: Visit Reason: BILATERAL URETERAL STONES Speciality: Acuity: Enc Type: Outpatient Med Service: Surgery Arrival: 11/09/2023 08:38:06 Discharge: Dispo Type: Address: [address] [place] [phone] Provider Notes: Diagnosis: Encounter for removal of [...] Immunizations Documented This Visit Final Med List: amlodipine-benazepril (amLODIPine-benazepril 5 mg-20 mg Cap) aspirin [...] Cystoscopy with Stent Removal Discharge Instructions (CUSTOM) [facility] Main OR Intraoperative Recor don 11-09-2023 Main OR Intraoperative Record Main OR Intraoperative Record IntraOp Document Type FTURO Summary Primary Physician: Sara Bob MD Finalized Date/Time: 11/09/23 09:43:10 Pt. Name: JOSEPH ESCALONA/Sex: 1945 Male Med Rec #: [id number] Physician: Sara Bob MD Financial #: [id number] Pt. Type: O Room/Bed: / Admit/Disch: 11/09/23 08:38:06 - Institution: Case Times FTURO Entry 1 Patient Times In Room 11/09/23 09:30:00 Out Room 11/09/23 09:42:00 Procedure Times Start 11/09/23 09:36:00 Stop 11/09/23 09:39:00 Anesthesia Times Last Modified By: Daphne Sarkar 11/09/23 09:42:32 Case Attendance FTURO Entry 1 Entry 2 Entry 3 Case Attendee Sara Bob MD, Kelsie E Miller, Laura C Role Performed Surgeon - Primary Social Worker Assistant - Primary Scrub - Primary Time In [...] Paulino GAVIN, Sara Loza, Verified (If Participants Daphne Sarkar, Applicable) Jayne Rodriguez Time Out Complete [...] 11/09/23 09:43 Daphne Sarkar 11/09/23 09:43 Normal [facility] Main OR Preoperative Recordo n 11-09-2023 Main OR Preoperative Record Main OR Preoperative Record Holding Area Document Type FTURO Summary Primary Physician: Sara Bob MD Finalized Date/Time: 11/09/23 09:30:25 Pt. Name: JOSEPH ESCALONA /Sex: 1945 Male Med Rec #: [id number] Physician: Sara Bob MD Financial #: [id number] Pt. Type: O Room/Bed: / Admit/Disch: 11/09/23 [...] Complaints of Pain: No Skin Integrity Intact, [place], Warm, & Dry Vitals - EU Blood Pressure 149/81 Pulse 78 bpm Respirations 18 br/min SPO2 98 % Additional None RN Reviewed Yes Specimens Collected Last Modified By: Daphne Sarkar 11/09/23 09:30:21 Finalized By: Daphne Sarkar Document Signatures Signed By: Clare Tovar LPN 11/09/23 09:11 Daphne Sarkar 11/09/23 09:30 Daphne Sarkar 11/09/23 09:30 Normal [facility] Operative Reporton Operative Report Operative Report Patient: JOSEPH ESCALONA Age: 78 years Sex: Male : 1945 Associated Diagnoses: None Author: Sara Bob MD Procedure Operative Information Details: Date/ Time: 11/09/2023 09:44:00. Pre-Op Dx: Encounter for removal of ureteral stent ([id number]-YV Z46.6, Discharge, Medical), Ureteral stone (KPE74-VR N20.1, Discharge, Medical) (History of ), Foreign Body in Bladder - T19.1XXA. Post-Op Dx: Same. Anesthesia Type: Local. Procedure: Local Cystoscopy with Stent Removal, Bilateral. Complications: None. Risks/Benefits/Informed Consent: Surgical risks, benefits, details of the [...] Rhodes for baseline urinary issues . Normal [facility] Comment on above: Result Comment: Elec tronically Signed By: Sara Bob MD\.br\Date and Time Signed: 11/09/23 09:48 EDT Outpatient Surgery Discharge Instructionon 11-09-2023 Outpatient Surgery Discharge Instruction Outpatient Surgery Discharge Instruction [address] [address] Patient Discharge Instructions PERSON INFORMATION [...] ESCALONA, have received the attached patient education materials/instructions and have verbalized understanding: May we do a follow up call? Yes No I was present when discharge instructions were given Patient Signature ___ Date Clinican/Nurse Signature Date You may receive a survey from [employer] asking you to rate your care experience. Your feedback is important and will help us understand what we do well and how we can improve the quality of care we provide to you, your loved ones and our community. It?s an honor to serve you. Thank you for choosing [facility] Normal [facility] Ammonium urate crystals dete ction in stone by infrared spectroscopyon 10-27-2023 Ammonium urate crystals Infrared spectroscopy Ql (Stone) TNP . [facility] Calcium bilirubinate measure menton 10-27-2023 Calcium bilirubinate (Stone) [Mass fraction] TNP . [facility] Calcium carbonate (Stone) [M ass fraction]on 10-27-2023 Stone Calcium Carbonate TNP . [facility] Calcium hydrogen phosphate d ihydrate (Stone) [Mass fraction]on 10-27-2023 Stone Calcium Hydrogen Phosphate TNP . [facility] Calcium oxalate dihydrate cr ystals detection in stone by infrared spectroscopyon 10-27-2023 Calcium oxalate dihydrate crystals Infrared spectroscopy Ql (Stone) 20 % . [facility] Calcium oxalate monohydrate crystal detectionon 10-27-2023 Calcium oxalate monohydrate crystals Infrared spectroscopy Ql (Stone) 80 % . [facility] Calcium phosphate measuremen ton 10-27-2023 Calcium phosphate (Stone) [Mass fraction] TNP . [facility] Calculus analysis interpreta tion in stoneon 10-27-2023 Calculus analysis [Interp] TNP . [facility] Calculus analysis [Interp] Comment . [facility] Comment on above: Calculus received we t. Wet calculi must be dried beforeanalysis, which delays reporting of results. Leaving calculiwet (such as water, saline, blood, urine) may lead tochanges in composition. Physician questions regarding Calculi Analysis contactGree[facility] Hospitalcorp at: [phone]. Calculus analysis with calcu charisse photography interpretation in stoneon 10-27-2023 Calculus analysis with calculus photography [Interp] Comment . [facility] Comment on above: Photograph will foll ow under a separate cover Cellular material measuremen t in stone by estimated (mass/mass)on 10-27-2023 Cellular material Est (Stone) [Mass/Mass] TNP . [facility] Cholesterol [Mass/volume] in Serum or Plasmaon 10-27-2023 Cholesterol [Mass/Vol] TNP . [facility] Composition of stoneon 10-26 Composition Nom (Stone) Comment . [facility] Comment on above: Percentage (Represen ts the % composition) Cystine measurementon 2023 Cystine (Unsp spec) [Moles/Vol] TNP . [facility] Determination of color of ca lculuson 10-27-2023 Color (Stone) Brown . [facility] Measurement of proportion of calculus composed of dried blood (mass/mass)on 10-27-2023 Blood.dried (Stone) [Mass fraction] TNP . [facility] Newberyite crystals detectio n in stone by infrared spectroscopyon 10-27-2023 Newberyite crystals Infrared spectroscopy Ql (Stone) TNP . [facility] No Panel Informationon 10-26 Stone 2,8 Dihydroxyadenine TNP . [facility] Stone Analysis Disclaimer Comment . [facility] Comment on above: Calculi report will follow via computer, mail or courierdelivery. This test was devheidyo robb and its performance characteristicsdetermined by [employer]. It has not been cleared or approvedby the Food and Drug Administration.Performed at: [facility] [id number] Director: Shantell Doran PhD, Phone: [phone] Stone Bilirubinate TNP . [facility] Stone Calcium Palmitate TNP . [facility] Stone Calcium Stearate TNP . [facility] Stone Drug or Metabolite TNP . [facility] Stone Other Constituent TNP . [facility] Stone Xanthine TNP . [facility] Size [Entitic volume] of Sto neon 10-27-2023 Size (Stone) [Entitic vol] 4x3 mm . [facility] Comment on above: Multiple pieces rece ived. Dimensions of the largest piecereported. Sodium urate crystals detect ion in stone by infrared spectroscopyon 10-27-2023 Sodium urate crystals Infrared spectroscopy Ql (Stone) TNP . [facility] Specimen source subject [Typ e]on 10-27-2023 Specimen source subject Nom Comment . [facility] Comment on above: Left Kidney Triamterene measurement in c alculuson 10-27-2023 Triamterene (Stone) [Mass fraction] TNP . [facility] Triple phosphate/Total in St oneon 10-27-2023 Triple phosphate (Stone) [Mass fraction] TNP . [facility] Uric acid dihydrate crystals detection in stone by infrared spectroscopyon 10-27-2023 Urate dihydrate crystals Infrared spectroscopy Ql (Stone) TNP . [facility] Activated partial thrombopla stin time (aPTT) in platelet poor plasma by coagulation aon 09-28-2023 aPTT Coag (PPP) [Time] 24.5 s 22.3-36.2 [facility] Estimated glomerular filtrat ion rate (GFR) non- Americanon 09-28-2023 GFR/1.73 sq M.predicted among non-blacks MDRD (S/P/Bld) [Vol rate/Area] mL/min/{1.73_m2} >=60 [facility] INR in Platelet poor plasma by Coagulation assayon 09-28-2023 INR Coag (PPP) [Relative time] 0.99 {INR} [facility] Comment on above: DESIRED INR:2.0-3.0 CONDITIONS NOT LISTED BELOW2.5-3.5 FOR PROSTHETIC HEART VALVE REPLACEMENT2.5-3.5 RECURRENT THROMBOSIS Laboratory - Chemistry and C hemistry - challengeon 09-28-2023 Calcium [Mass/Vol] 8.5 mg/dL 8.5-10.1 [facility] Chloride [Moles/Vol] 105 mmol/L 98-107 [facility] CO2 [Moles/Vol] 29.6 mmol/L 21.0-32.0 [facility] Creatinine [Mass/Vol] 0.92 mg/dL 0.70-1.30 [facility] GFR/1.73 sq M.predicted MDRD (S/P/Bld) [Vol rate/Area] mL/min/{1.73_m2} >=60 [facility] Glucose [Mass/Vol] 146 mg/dL High 74-106 [facility] Magnesium [Mass/Vol] 1.7 mg/dL Low 1.8-2.4 [facility] Potassium [Moles/Vol] 3.7 mmol/L 3.5-5.1 [facility] Sodium [Moles/Vol] 142 mmol/L 136-145 [facility] Urea nitrogen [Mass/Vol] 9.0 mg/dL 7.0-18.0 [facility] Urea nitrogen/Creatinine [Mass ratio] 9.8 mg/mg [facility] Prothrombin time (PT)on 08-31 PT Coag (PPP) [Time] 10.5 s 9.0-11.6 [facility] Serum or plasma anion gap de terminationon 09-28-2023 Anion gap [Moles/Vol] 11.1 mmol/L [facility] Basophils Auto (Bld) [#/Vol] on 09-27-2023 Basophils (Bld) [#/Vol] 0.0 10 3/uL 0.0-0.1 [facility] Basophils/100 WBC Auto (Bld) on 09-27-2023 Basophils/100 WBC (Bld) 0.3 % 0.2-2.0 [facility] Eosinophils/100 WBC Auto (Bl d)on 09-27-2023 Eosinophils/100 WBC (Bld) 1.0 % 0.9-7.0 [facility] Erythrocyte distribution wid th Auto (RBC) [Ratio]on 09-27-2023 Erythrocyte distribution width (RBC) [Ratio] 12.9 % 11.0-15.0 [facility] Estimated glomerular filtrat ion rate (GFR) non- Americanon 09-27-2023 GFR/1.73 sq M.predicted among non-blacks MDRD (S/P/Bld) [Vol rate/Area] mL/min/{1.73_m2} >=60 [facility] Globulin Calc (S) [Mass/Vol] on 09-27-2023 Globulin (S) [Mass/Vol] 3.4 g/dL [facility] Hematocrit Auto (Bld) [Volum e fraction]on 09-27-2023 Hematocrit (Bld) [Volume fraction] 40.7 % Low 42.0-54.0 [facility] Hemoglobin [Mass/volume] in Bloodon 09-27-2023 Hemoglobin (Bld) [Mass/Vol] 14.1 g/dL 14.0-18.0 [facility] Laboratory - Chemistry and C hemistry - challengeon 09-27-2023 Albumin [Mass/Vol] 3.7 g/dL 3.4-5.0 [facility] ALP [Catalytic activity/Vol] 50 U/L 46-116 [facility] ALT [Catalytic activity/Vol] 28 U/L 16-63 [facility] AST [Catalytic activity/Vol] 17 U/L 15-37 [facility] Bilirubin [Mass/Vol] 0.8 mg/dL 0.2-1.0 [facility] Calcium [Mass/Vol] 8.7 mg/dL 8.5-10.1 [facility] Chloride [Moles/Vol] 102 mmol/L 98-107 [facility] CO2 [Moles/Vol] 26.7 mmol/L 21.0-32.0 [facility] Creatinine [Mass/Vol] 0.85 mg/dL 0.70-1.30 [facility] GFR/1.73 sq M.predicted MDRD (S/P/Bld) [Vol rate/Area] mL/min/{1.73_m2} >=60 [facility] Glucose [Mass/Vol] 120 mg/dL High 74-106 [facility] Potassium [Moles/Vol] 3.7 mmol/L 3.5-5.1 [facility] Protein [Mass/Vol] 7.1 g/dL 6.4-8.2 [facility] Sodium [Moles/Vol] 137 mmol/L 136-145 [facility] Urea nitrogen [Mass/Vol] 10.0 mg/dL 7.0-18.0 [facility] Urea nitrogen/Creatinine [Mass ratio] 11.8 mg/mg [facility] Bilirubin Ql (U) Negative NEGATIVE [facility] Glucose (U) [Mass/Vol] Negative NEGATIVE [facility] Ketones Ql (U) Negative NEGATIVE [facility] pH (U) 6.0 [pH] 5.0-9.0 [facility] Specific gravity (U) [Rel density] 1.020 1.005-1.02 5 [facility] Urobilinogen Qn (U) 0.2 {Raeann'U}/dL 0.2-1.0 [facility] Lactate [Moles/Vol] 1.1 mmol/L 0.4-2.0 [facility] Laboratory - Hematology and Cell countson 09-27-2023 Immature granulocytes/100 WBC (Bld) 0.5 % 0.0-0.5 [facility] Laboratory - Microbiology an d Antimicrobial susceptibilityon 09-27-2023 Bacteria identified Cx Nom (U) [facility] Laboratory - Specimen inform ationon 09-27-2023 Appearance (U) CLEAR CLEAR [facility] Color (U) LT. YELLOW YELLOW [facility] Laboratory - Urinalysison Leukocyte esterase Test strip Ql (U) MODERATE Abnormal NEGATIVE [facility] Mucus Ql (Urine sed) TRACE Abnormal NONE SEEN [facility] Nitrite Ql (U) Positive Abnormal NEGATIVE [facility] Protein Ql (U) >=300 mg/dL Abnormal NEG/TRACE [facility] Leukocytes [#/volume] correc bethany for nucleated erythrocytes in Blood by Automated counon 09-27-2023 WBC corrected for nucl RBC Auto (Bld) [#/Vol] 8.7 10 3/uL 4.0-11.0 [facility] Lymphocytes Auto (Bld) [#/Vo l]on 09-27-2023 Lymphocytes (Bld) [#/Vol] 0.8 10 3/uL Low 1.2-3.8 [facility] Lymphocytes/100 WBC Auto (Bl d)on 09-27-2023 Lymphocytes/100 WBC (Bld) 9.2 % Low 20.5-60.0 [facility] MCH Auto (RBC) [Entitic mass ]on 09-27-2023 MCH (RBC) [Entitic mass] 29.7 pg 25.9-34.0 [facility] MCHC Auto (RBC) [Mass/Vol]on 09-27-2023 MCHC (RBC) [Mass/Vol] 34.6 g/dL 29.9-35.2 [facility] MCV Auto (RBC) [Entitic vol] on 09-27-2023 MCV (RBC) [Entitic vol] 85.9 fL 80.0-94.0 [facility] Monocytes Auto (Bld) [#/Vol] on 09-27-2023 Monocytes (Bld) [#/Vol] 0.8 10 3/uL 0.3-0.8 [facility] Monocytes/100 WBC Auto (Bld) on 09-27-2023 Monocytes/100 WBC (Bld) 9.0 % 1.7-12.0 [facility] Neutrophils Auto (Bld) [#/Vo l]on 09-27-2023 Neutrophils (Bld) [#/Vol] 6.9 10 3/uL High 1.4-6.5 [facility] Neutrophils/100 WBC Auto (Bl d)on 09-27-2023 Neutrophils/100 WBC (Bld) 80.0 % High 43.0-75.0 [facility] No Panel Informationon 09-26 Miscellaneous Test Comment See comment [facility] Comment on above: Specimen Source: UCC - Urine,Clean Catch - Urine CC - 200.100 Urine Bacteria LARGE #/HPF Abnormal NONE SEEN [facility] Urine Culture Reflexed YES [facility] Urine Microscopic Review YES [facility] Urine Occult Blood LARGE Abnormal NEGATIVE [facility] Urine Other Casts NONE SEEN #/LPF NONE SEEN [facility] Urine Other Crystals None Seen #/HPF None Seen [facility] Urine RBC 5-10 #/HPF Abnormal 0-2 [facility] Urine Squamous Epithelial Cells RARE #/LPF NONE/RARE [facility] Urine WBC >100 #/HPF Abnormal NONE SEEN [facility] Eosinophils # (Auto) 0.1 10 3/uL 0.0-0.7 Fir [facility] Immature Granulocyte # (Auto) 0.04 10 3/uL High 0.00-0.03 [facility] Platelet mean volume Auto (B ld) [Entitic vol]on 09-27-2023 Platelet mean volume (Bld) [Entitic vol] 9.7 fL 9.5-13.5 [facility] Platelets Auto (Bld) [#/Vol] on 09-27-2023 Platelets (Bld) [#/Vol] 149 10 3/uL Low 150-450 [facility] RBC Auto (Bld) [#/Vol]on RBC (Bld) [#/Vol] 4.74 10 6/uL 4.70-6.10 [facility] Serum or plasma albumin/glob ulin mass ratioon 09-27-2023 Albumin/Globulin [Mass ratio] 1.1 {ratio} [facility] Serum or plasma anion gap de terminationon 09-27-2023 Anion gap [Moles/Vol] 12.0 mmol/L [facility] Reminderson 07-27-2023 Reminders - From: Mayte Edmonds To: GARO Bob; Sent: 04/28/2023 10:39:26 EST Show up: 07/05/2023 10:39:00 EDT Subject: Schedule Urodynamics Due Date/Time: 08/05/2023 10:39:00 EDT Reminder/Recall Per [facility], patient needs to be scheduled to have Urodynamics done once she returns as of July. Will need to call patient prior to [facility]'s return to schedule, once [facility] provides the Urodynamics days/times for July. Called patient, no answer. LM to return call to the office. From: Mayte Edmonds (EU - Recalls Paulino) To: Sara Bob MD; Sent: 07/22/2023 16:11:53 EDT ! Show up: 07/22/2023 16:11:00 EDT See message below from previous message created on 06/04/23. Patient is now being seen by Dr. Rhodes and no longer desires being seen in our office. From: Mayte Edmonds Sent: 06/04/2023 09:52:41 EDT Subject: Cancel Procedure Caller Name: JOSEPH ESCALONA; Caller Number: Anila , Kasi Patient called the PAC earlier today and was upset stating he wanted to cancel the upcoming urodynamics with [facility] on 06/21/23. Patient was advised that needed to be cancelled by a tool tender and began yelling at the PAC, stating [...] a call. Patient voiced his understanding. Normal [facility] Automated urine specific gra vity by refractometryon 06-29-2023 Specific gravity Refractometry automated (U) [Rel density] 1.025 1.005-1.02 5 [facility] Bilirubin Auto test strip (U ) [Mass/Vol]on 06-29-2023 Bilirubin (U) [Mass/Vol] Negative NEGATIVE [facility] Color Auto (U)on 06-29-2023 Color (U) YELLOW YELLOW [facility] Glucose [Mass/volume] in Uri ne by Test stripon 06-29-2023 Glucose Test strip (U) [Mass/Vol] Negative NEGATIVE [facility] Ketones Auto test strip (U) [Mass/Vol]on 06-29-2023 Ketones (U) [Mass/Vol] Negative NEGATIVE Fi [facility] Laboratory - Microbiology an d Antimicrobial susceptibilityOrdered By: Dion Griggs on 06-29-2023 Bacteria identified Cx Nom (U) [facility] Protein Auto test strip (U) [Mass/Vol]on 06-29-2023 Protein (U) [Mass/Vol] Negative NEG/TRACE [facility] Specific gravity Auto test s trip (U) [Rel density]on 06-29-2023 Specific gravity (U) [Rel density] SL CLOUDY CLEAR [facility] Urine hemoglobin detection b y automated test stripon 06-29-2023 Hemoglobin Auto test strip Ql (U) LARGE Abnormal NEGATIVE [facility] Urine nitrite detection by a utomated test stripon 06-29-2023 Nitrite Auto test strip Ql (U) SMALL Abnormal NEGATIVE [facility] Nitrite Auto test strip Ql (U) Positive Abnormal NEGATIVE [facility] Urobilinogen Auto test strip (U) [Mass/Vol]on 06-29-2023 Urobilinogen Qn (U) 0.2 {Raeann'U}/dL 0.2-1.0 [facility] pH Auto test strip (U)on pH (U) 5.5 [pH] 5.0-9.0 [facility] HbA1c HPLC (Bld) [Mass fract ion]on 06-24-2023 HbA1c (Bld) [Mass fraction] 6.9 % [facility] No Panel Informationon 06-23 Bedside Glucose 103 [facility] Cholesterol in LDL Calc [Mas s/Vol]on 06-22-2023 Cholesterol in LDL [Mass/Vol] 40.2 mg/dL [facility] Comment on above: <100 mg/dl [id number] 0-129 mg/dl NEAR OR ABOVE [id number] mg/dl BORDERLINE [id number] mg/dl HIGH>190 mg/dl VERY HIGH Cholesterol in VLDL Calc [Ma ss/Vol]on 06-22-2023 Cholesterol in VLDL [Mass/Vol] 12.8 mg/dL [facility] Estimated glomerular filtrat ion rate (GFR) non- Americanon 06-22-2023 GFR/1.73 sq M.predicted among non-blacks MDRD (S/P/Bld) [Vol rate/Area] mL/min/{1.73_m2} >=60 [facility] Globulin Calc (S) [Mass/Vol] on 06-22-2023 Globulin (S) [Mass/Vol] 3.6 g/dL [facility] Laboratory - Chemistry and C hemistry - challengeon 06-22-2023 Albumin [Mass/Vol] 3.7 g/dL 3.4-5.0 [facility] ALP [Catalytic activity/Vol] 48 U/L 46-116 [facility] ALT [Catalytic activity/Vol] 34 U/L 16-63 [facility] AST [Catalytic activity/Vol] 20 U/L 15-37 [facility] Bilirubin [Mass/Vol] 0.5 mg/dL 0.2-1.0 [facility] Calcium [Mass/Vol] 9.2 mg/dL 8.5-10.1 [facility] Chloride [Moles/Vol] 106 mmol/L 98-107 [facility] Cholesterol [Mass/Vol] 102 mg/dL <=200 [facility] Cholesterol in HDL [Mass/Vol] 49 mg/dL 40-60 [facility] Comment on above: > or =60 mg/dl - LOW CARDIOVASCULAR RISK<40 mg/dl - HIGH CARDIOVASCULAR RISK CO2 [Moles/Vol] 26.8 mmol/L 21.0-32.0 [facility] Cobalamin (Vitamin B12) [Mass/Vol] 456.0 pg/mL 193.0-986. 0 [facility] Creatinine [Mass/Vol] 1.04 mg/dL 0.70-1.30 [facility] GFR/1.73 sq M.predicted MDRD (S/P/Bld) [Vol rate/Area] mL/min/{1.73_m2} >=60 [facility] Glucose [Mass/Vol] 82 mg/dL 74-106 [facility] Potassium [Moles/Vol] 4.2 mmol/L 3.5-5.1 [facility] Protein [Mass/Vol] 7.3 g/dL 6.4-8.2 [facility] Sodium [Moles/Vol] 143 mmol/L 136-145 [facility] Triglyceride [Mass/Vol] 64 mg/dL <=150 [facility] Urea nitrogen [Mass/Vol] 19.0 mg/dL High 7.0-18.0 [facility] Urea nitrogen/Creatinine [Mass ratio] 18.3 mg/mg [facility] Microalbumin [Mass/volume] i n Urineon 06-22-2023 Albumin DL <= 20 mg/L (U) [Mass/Vol] 3.9 mg/dL <=30.0 [facility] No Panel Informationon 06-21 Urine Random Creatinine 136.06 mg/dL 20.00-300. 00 [facility] Serum or plasma albumin/glob ulin mass ratioon 06-22-2023 Albumin/Globulin [Mass ratio] 1.0 {ratio} [facility] Serum or plasma anion gap de terminationon 06-22-2023 Anion gap [Moles/Vol] 14.4 mmol/L [facility] Serum or plasma total choles terol/high density lipoprotein (HDL) cholesterol mass ceferino 06-22-2023 Cholesterol.total/Chol esterol in HDL [Mass ratio] 2.1 {ratio} [facility] Comment on above: 3.3 - 4.4 LOW RISK4. 4 - 7.1 AVERAGE RISK7.1 - 11.0 MODERATE RISK>11.0 HIGH RISK Urine microalbumin/creatinin e mass ratioon 06-22-2023 Albumin/Creatinine DL <= 20 mg/L (U) [Mass ratio] 28.6 mg/g 0.0-29.9 [facility] Comment on above: NO MICROALBUMINURIA 0-29 MG/GCLINICAL MICROALBUMINURIA 30-300 MG/GMACROALBUMINURIA >300 MG/G ED Note-Physicianon 05-27-19 ED Note-Physician [id number] Normal [facility] Automated epithelial cells c ount in urine sediment (number/area)on 05-24-2023 Epithelial cells Auto (Urine sed) [#/Area] RARE #/LPF NONE/RARE [facility] Automated leukocytes count i n urine sediment (number/area)on 05-24-2023 WBC Auto (Urine sed) [#/Area] 50-75 #/HPF 0-2 [facility] Automated urine specific gra vity by refractometryon 05-24-2023 Specific gravity Refractometry automated (U) [Rel density] >=1.030 1.005-1.02 5 [facility] Basophils Auto (Bld) [#/Vol] on 05-24-2023 Basophils (Bld) [#/Vol] 0.0 10 3/uL 0.0-0.1 [facility] Basophils/100 WBC Auto (Bld) on 05-24-2023 Basophils/100 WBC (Bld) 0.4 % 0.2-2.0 [facility] Bilirubin Auto test strip (U ) [Mass/Vol]on 05-24-2023 Bilirubin (U) [Mass/Vol] Negative NEGATIVE [facility] Casts typing in urine sedime nt by light microscopyon 05-24-2023 Casts LM Nom (Urine sed) NONE SEEN #/LPF NONE SEEN [facility] Color Auto (U)on 05-24-2023 Color (U) YELLOW YELLOW [facility] Eosinophils/100 WBC Auto (Bl d)on 05-24-2023 Eosinophils/100 WBC (Bld) 1.1 % 0.9-7.0 [facility] Erythrocyte distribution wid th Auto (RBC) [Ratio]on 05-24-2023 Erythrocyte distribution width (RBC) [Ratio] 13.0 % 11.0-15.0 [facility] Estimated glomerular filtrat ion rate (GFR) non- Americanon 05-24-2023 GFR/1.73 sq M.predicted among non-blacks MDRD (S/P/Bld) [Vol rate/Area] mL/min/{1.73_m2} >=60 [facility] Globulin Calc (S) [Mass/Vol] on 05-24-2023 Globulin (S) [Mass/Vol] 4.0 g/dL [facility] Hematocrit Auto (Bld) [Volum e fraction]on 05-24-2023 Hematocrit (Bld) [Volume fraction] 40.9 % 42.0-54.0 [facility] Hemoglobin [Mass/volume] in Bloodon 05-24-2023 Hemoglobin (Bld) [Mass/Vol] 13.6 g/dL 14.0-18.0 [facility] Ketones Auto test strip (U) [Mass/Vol]on 05-24-2023 Ketones (U) [Mass/Vol] TRACE mg/dL NEGATIVE [facility] Laboratory - Chemistry and C hemistry - challengeon 05-24-2023 Albumin [Mass/Vol] 3.6 g/dL 3.4-5.0 [facility] ALP [Catalytic activity/Vol] 63 U/L 46-116 [facility] ALT [Catalytic activity/Vol] 24 U/L 16-63 [facility] AST [Catalytic activity/Vol] 15 U/L 15-37 [facility] Bilirubin [Mass/Vol] 0.6 mg/dL 0.2-1.0 [facility] Calcium [Mass/Vol] 9.0 mg/dL 8.5-10.1 [facility] Chloride [Moles/Vol] 102 mmol/L 98-107 [facility] CO2 [Moles/Vol] 26.5 mmol/L 21.0-32.0 [facility] Creatinine [Mass/Vol] 1.12 mg/dL 0.70-1.30 [facility] GFR/1.73 sq M.predicted MDRD (S/P/Bld) [Vol rate/Area] mL/min/{1.73_m2} >=60 [facility] Glucose [Mass/Vol] 213 mg/dL 74-106 [facility] Lactate [Moles/Vol] 1.6 mmol/L 0.4-2.0 [facility] Lipase [Catalytic activity/Vol] 23.0 U/L 16.0-77.0 [facility] Potassium [Moles/Vol] 3.6 mmol/L 3.5-5.1 [facility] Protein [Mass/Vol] 7.6 g/dL 6.4-8.2 [facility] Sodium [Moles/Vol] 140 mmol/L 136-145 [facility] Urea nitrogen [Mass/Vol] 15.0 mg/dL 7.0-18.0 [facility] Urea nitrogen/Creatinine [Mass ratio] 13.4 mg/mg [facility] Laboratory - Hematology and Cell countson 05-24-2023 Immature granulocytes/100 WBC (Bld) 0.6 % 0.0-0.5 [facility] Laboratory - Microbiology an d Antimicrobial susceptibilityon 05-24-2023 S. agalactiae Org specific cx Ql (Vag fld) Not detected NOT DETECTE [facility] Leukocytes [#/volume] correc bethany for nucleated erythrocytes in Blood by Automated counon 05-24-2023 WBC corrected for nucl RBC Auto (Bld) [#/Vol] 10.8 10 3/uL 4.0-11.0 [facility] Lymphocytes Auto (Bld) [#/Vo l]on 05-24-2023 Lymphocytes (Bld) [#/Vol] 0.8 10 3/uL 1.2-3.8 [facility] Lymphocytes/100 WBC Auto (Bl d)on 05-24-2023 Lymphocytes/100 WBC (Bld) 7.4 % 20.5-60.0 [facility] MCH Auto (RBC) [Entitic mass ]on 05-24-2023 MCH (RBC) [Entitic mass] 28.8 pg 25.9-34.0 [facility] MCHC Auto (RBC) [Mass/Vol]on 05-24-2023 MCHC (RBC) [Mass/Vol] 33.3 g/dL 29.9-35.2 [facility] MCV Auto (RBC) [Entitic vol] on 05-24-2023 MCV (RBC) [Entitic vol] 86.5 fL 80.0-94.0 [facility] Monocytes Auto (Bld) [#/Vol] on 05-24-2023 Monocytes (Bld) [#/Vol] 1.1 10 3/uL 0.3-0.8 [facility] Monocytes/100 WBC Auto (Bld) on 05-24-2023 Monocytes/100 WBC (Bld) 9.9 % 1.7-12.0 [facility] Mucus LM Ql (Urine sed)on Mucus Ql (Urine sed) MODERATE NONE SEEN [facility] Neutrophils Auto (Bld) [#/Vo l]on 05-24-2023 Neutrophils (Bld) [#/Vol] 8.8 10 3/uL 1.4-6.5 [facility] Neutrophils/100 WBC Auto (Bl d)on 05-24-2023 Neutrophils/100 WBC (Bld) 80.6 % 43.0-75.0 [facility] No Panel Informationon 05-23 Urine Culture Reflexed YES [facility] Urine Microscopic Review YES [facility] A.calcoaceticus-fernando gunnar cmplx PCR Not detected NOT DETECTE [facility] Bacteroides fragilis (PCR) Not detected NOT DETECTE [facility] Blood Culture Source blood [facility] Jhoana albicans (PCR) Not detected NOT DETECTE [facility] Jhoana auris (PCR) Not detected NOT DETECTE [facility] Jhoana glabrata (PCR) Not detected NOT DETECTE [facility] Jhoana krusei (PCR) Not detected NOT DETECTE [facility] Jhoana parapsilosis (PCR) Not detected NOT DETECTE [facility] Jhoana tropicalis (PCR) Not detected NOT DETECTE [facility] Crypto neoformans/gattii (PCR)(LAB) Not detected NOT DETECTE [facility] CTX-M ESBL (PCR) NOT APPLICABLE NOT DETECTE [facility] Enterobacter cloacae complex (PCR) Not detected NOT DETECTE [facility] Enterobacterales (PCR) Not detected NOT DETECTE [facility] Enterococcus faecalis PCR Not detected NOT DETECTE [facility] Enterococcus faecium PCR Not detected NOT DETECTE [facility] Escherichia coli Result Not detected NOT DETECTE [facility] Haemophilus influenzae DNA Not detected NOT DETECTE [facility] IMP (blaIMP) Carbap Res Gene (PCR) NOT APPLICABLE NOT DETECTE [facility] Klebsiella aerogenes (PCR) Not detected NOT DETECTE [facility] Klebsiella oxytoca (PCR) Not detected NOT DETECTE [facility] [facility] Klebsiella pneumoniae group (PCR) Not detected NOT DETECTE [facility] KPC (blaKPC) Detection (PCR) NOT APPLICABLE NOT DETECTE [facility] Listeria monocytogenes (PCR) Not detected NOT DETECTE [facility] MCR-1 Resistance Gene NOT APPLICABLE NOT DETECTE [facility] mecA/C & MREJ Antimicrob Resist Gen NOT APPLICABLE NOT DETECTE [facility] mecA/C-Methicillin Resistance Gene NOT APPLICABLE NOT DETECTE [facility] NDM (blaNDM) Detection (PCR) NOT APPLICABLE NOT DETECTE [facility] Neisseria meningitidis (PCR) Not detected NOT DETECTE [facility] Proteus species (PCR) Not detected NOT DETECTE [facility] Pseudomonas aeruginosa (PCR) Not detected NOT DETECTE [facility] Salmonella spp. (PCR) Not detected NOT DETECTE [facility] Serratia marcescens (PCR) Not detected NOT DETECTE [facility] Staphylococcus aureus (PCR)(LAB) Not detected NOT DETECTE [facility] Staphylococcus epidermidis (PCR) Not detected NOT DETECTE [facility] Staphylococcus lugdunensis (TEM-PCR Not detected NOT DETECTE [facility] Staphylococcus species (PCR) Not detected NOT DETECTE [facility] Stenotroph. maltophilia (PCR) Not detected NOT DETECTE [facility] Streptococcus pneumoniae (PCR) Not detected NOT DETECTE [facility] Streptococcus pyogenes (PCR)(LAB) Not detected NOT DETECTE [facility] Streptococcus species (PCR) Not detected NOT DETECTE [facility] Syn OXA-48-like Carb Res Gene (PCR) NOT APPLICABLE NOT DETECTE [facility] Regina/B-Vancomycin Resistance Genes NOT APPLICABLE NOT DETECTE [facility] VIM (blaVIM) Carbap Res Gene (PCR) NOT APPLICABLE NOT DETECTE [facility] Eosinophils # (Auto) 0.1 10 3/uL 0.0-0.7 [facility] Immature Granulocyte # (Auto) 0.06 10 3/uL 0.00-0.03 [facility] No Panel InformationOrdered By: Dion Griggs on 05-24-2023 Blood Culture 2 [facility] Blood Culture 1 [facility] Platelet mean volume Auto (B ld) [Entitic vol]on 05-24-2023 Platelet mean volume (Bld) [Entitic vol] 8.8 fL 9.5-13.5 [facility] Platelets Auto (Bld) [#/Vol] on 05-24-2023 Platelets (Bld) [#/Vol] 244 10 3/uL 150-450 [facility] Protein Auto test strip (U) [Mass/Vol]on 05-24-2023 Protein (U) [Mass/Vol] 30 mg/dL NEG/TRACE [facility] RBC Auto (Bld) [#/Vol]on RBC (Bld) [#/Vol] 4.73 10 6/uL 4.70-6.10 [facility] Serum or plasma albumin/glob ulin mass ratioon 05-24-2023 Albumin/Globulin [Mass ratio] 0.9 {ratio} [facility] Serum or plasma anion gap de terminationon 05-24-2023 Anion gap [Moles/Vol] 15.1 mmol/L [facility] Specific gravity Auto test s trip (U) [Rel density]on 05-24-2023 Specific gravity (U) [Rel density] CLEAR CLEAR [facility] Urine bacteria detection by automated methodon 05-24-2023 Bacteria Auto Ql (U) SMALL #/HPF NONE SEEN [facility] Urine glucose measurement by test strip (mass/volume)on 05-24-2023 Glucose Test strip (U) [Mass/Vol] >=1000 mg/dL NEGATIVE [facility] Urine hemoglobin detection b y automated test stripon 05-24-2023 Hemoglobin Auto test strip Ql (U) LARGE NEGATIVE [facility] Urine nitrite detection by a utomated test stripon 05-24-2023 Nitrite Auto test strip Ql (U) TRACE NEGATIVE [facility] Nitrite Auto test strip Ql (U) Negative NEGATIVE [facility] Urine sediment crystal ident ification by light microscopyon 05-24-2023 Crystals LM Nom (Urine sed) None Seen #/HPF None Seen [facility] Urine sediment leukocyte cou nt by microscopy (number/high power field)on 05-24-2023 WBC LM.HPF (Urine sed) [#/Area] 5-10 #/HPF NONE SEEN [facility] Urobilinogen Auto test strip (U) [Mass/Vol]on 05-24-2023 Urobilinogen Qn (U) 0.2 {Raeann'U}/dL 0.2-1.0 [facility] pH Auto test strip (U)on pH (U) 5.5 [pH] 5.0-9.0 [facility] Automated epithelial cells c ount in urine sediment (number/area)on 05-20-2023 Epithelial cells Auto (Urine sed) [#/Area] NONE SEEN #/LPF NONE/RARE [facility] Automated leukocytes count i n urine sediment (number/area)on 05-20-2023 WBC Auto (Urine sed) [#/Area] 5-10 #/HPF 0-2 [facility] Automated urine specific gra vity by refractometryon 05-20-2023 Specific gravity Refractometry automated (U) [Rel density] 1.025 1.005-1.02 5 [facility] Basophils Auto (Bld) [#/Vol] on 05-20-2023 Basophils (Bld) [#/Vol] 0.1 10 3/uL 0.0-0.1 [facility] Basophils/100 WBC Auto (Bld) on 05-20-2023 Basophils/100 WBC (Bld) 0.6 % 0.2-2.0 [facility] Bilirubin Auto test strip (U ) [Mass/Vol]on 05-20-2023 Bilirubin (U) [Mass/Vol] Negative NEGATIVE [facility] Casts typing in urine sedime nt by light microscopyon 05-20-2023 Casts LM Nom (Urine sed) NONE SEEN #/LPF NONE SEEN [facility] Color Auto (U)on 05-20-2023 Color (U) YELLOW YELLOW [facility] Eosinophils/100 WBC Auto (Bl d)on 05-20-2023 Eosinophils/100 WBC (Bld) 0.9 % 0.9-7.0 [facility] Erythrocyte distribution wid th Auto (RBC) [Ratio]on 05-20-2023 Erythrocyte distribution width (RBC) [Ratio] 13.2 % 11.0-15.0 [facility] Estimated glomerular filtrat ion rate (GFR) non- Americanon 05-20-2023 GFR/1.73 sq M.predicted among non-blacks MDRD (S/P/Bld) [Vol rate/Area] mL/min/{1.73_m2} >=60 [facility] Globulin Calc (S) [Mass/Vol] on 05-20-2023 Globulin (S) [Mass/Vol] 3.7 g/dL [facility] Hematocrit Auto (Bld) [Volum e fraction]on 05-20-2023 Hematocrit (Bld) [Volume fraction] 42.2 % 42.0-54.0 [facility] Hemoglobin [Mass/volume] in Bloodon 05-20-2023 Hemoglobin (Bld) [Mass/Vol] 14.2 g/dL 14.0-18.0 [facility] Ketones Auto test strip (U) [Mass/Vol]on 05-20-2023 Ketones (U) [Mass/Vol] TRACE mg/dL NEGATIVE [facility] - Chemistry and C hemistry - challengeon 05-20-2023 Albumin [Mass/Vol] 3.8 g/dL 3.4-5.0 [facility] ALP [Catalytic activity/Vol] 55 U/L 46-116 [facility] ALT [Catalytic activity/Vol] 35 U/L 16-63 [facility] AST [Catalytic activity/Vol] 17 U/L 15-37 [facility] Bilirubin [Mass/Vol] 0.6 mg/dL 0.2-1.0 [facility] Calcium [Mass/Vol] 8.6 mg/dL 8.5-10.1 [facility] Chloride [Moles/Vol] 101 mmol/L 98-107 [facility] CO2 [Moles/Vol] 25.2 mmol/L 21.0-32.0 [facility] Creatinine [Mass/Vol] 1.02 mg/dL 0.70-1.30 [facility] GFR/1.73 sq M.predicted MDRD (S/P/Bld) [Vol rate/Area] mL/min/{1.73_m2} >=60 [facility] Glucose [Mass/Vol] 228 mg/dL 74-106 [facility] Lactate [Moles/Vol] 2.1 mmol/L 0.4-2.0 [facility] Lipase [Catalytic activity/Vol] 73.0 U/L 16.0-77.0 [facility] Potassium [Moles/Vol] 3.9 mmol/L 3.5-5.1 [facility] Protein [Mass/Vol] 7.5 g/dL 6.4-8.2 [facility] Sodium [Moles/Vol] 137 mmol/L 136-145 [facility] Urea nitrogen [Mass/Vol] 15.0 mg/dL 7.0-18.0 [facility] Urea nitrogen/Creatinine [Mass ratio] 14.7 mg/mg [facility] Laboratory - Hematology and Cell countson 05-20-2023 Immature granulocytes/100 WBC (Bld) 0.6 % 0.0-0.5 [facility] - Microbiology an d Antimicrobial susceptibilityOrdered By: Dion Griggs on 05-20-2023 Bacteria identified Cx Nom (U) [facility] Leukocytes [#/volume] correc bethany for nucleated erythrocytes in Blood by Automated counon 05-20-2023 WBC corrected for nucl RBC Auto (Bld) [#/Vol] 9.9 10 3/uL 4.0-11.0 [facility] Lymphocytes Auto (Bld) [#/Vo l]on 05-20-2023 Lymphocytes (Bld) [#/Vol] 0.9 10 3/uL 1.2-3.8 [facility] Lymphocytes/100 WBC Auto (Bl d)on 05-20-2023 Lymphocytes/100 WBC (Bld) 9.1 % 20.5-60.0 [facility] MCH Auto (RBC) [Entitic mass ]on 05-20-2023 MCH (RBC) [Entitic mass] 29.2 pg 25.9-34.0 [facility] MCHC Auto (RBC) [Mass/Vol]on 05-20-2023 MCHC (RBC) [Mass/Vol] 33.6 g/dL 29.9-35.2 [facility] MCV Auto (RBC) [Entitic vol] on 05-20-2023 MCV (RBC) [Entitic vol] 86.8 fL 80.0-94.0 [facility] Monocytes Auto (Bld) [#/Vol] on 05-20-2023 Monocytes (Bld) [#/Vol] 0.9 10 3/uL 0.3-0.8 [facility] Monocytes/100 WBC Auto (Bld) on 05-20-2023 Monocytes/100 WBC (Bld) 9.1 % 1.7-12.0 [facility] Mucus LM Ql (Urine sed)on Mucus Ql (Urine sed) NONE SEEN NONE SEEN [facility] Neutrophils Auto (Bld) [#/Vo l]on 05-20-2023 Neutrophils (Bld) [#/Vol] 7.9 10 3/uL 1.4-6.5 [facility] Neutrophils/100 WBC Auto (Bl d)on 05-20-2023 Neutrophils/100 WBC (Bld) 79.7 % 43.0-75.0 [facility] No Panel InformationOrdered By: Dion Griggs on 05-20-2023 Blood Culture 2 [facility] Blood Culture 1 [facility] No Panel Informationon 05-19 Eosinophils # (Auto) 0.1 10 3/uL 0.0-0.7 [facility] Immature Granulocyte # (Auto) 0.06 10 3/uL 0.00-0.03 [facility] Urine Culture Reflexed YES [facility] Urine Microscopic Review YES [facility] Platelet mean volume Auto (B ld) [Entitic vol]on 05-20-2023 Platelet mean volume (Bld) [Entitic vol] 8.5 fL 9.5-13.5 [facility] Platelets Auto (Bld) [#/Vol] on 05-20-2023 Platelets (Bld) [#/Vol] 276 10 3/uL 150-450 [facility] Protein Auto test strip (U) [Mass/Vol]on 05-20-2023 Protein (U) [Mass/Vol] 30 mg/dL NEG/TRACE [facility] RBC Auto (Bld) [#/Vol]on RBC (Bld) [#/Vol] 4.86 10 6/uL 4.70-6.10 [facility] Serum or plasma albumin/glob ulin mass ratioon 05-20-2023 Albumin/Globulin [Mass ratio] 1.0 {ratio} [facility] Serum or plasma anion gap de terminationon 05-20-2023 Anion gap [Moles/Vol] [facility]7 [facility] Specific gravity Auto test s trip (U) [Rel density]on 05-20-2023 Specific gravity (U) [Rel density] CLEAR CLEAR [facility] Urine bacteria detection by automated methodon 05-20-2023 Bacteria Auto Ql (U) MODERATE #/HPF NONE SEEN [facility] Urine glucose measurement by test strip (mass/volume)on 05-20-2023 Glucose Test strip (U) [Mass/Vol] >=1000 mg/dL NEGATIVE [facility] Urine hemoglobin detection b y automated test stripon 05-20-2023 Hemoglobin Auto test strip Ql (U) LARGE NEGATIVE [facility] Urine nitrite detection by a utomated test stripon 05-20-2023 Nitrite Auto test strip Ql (U) TRACE NEGATIVE [facility] Nitrite Auto test strip Ql (U) Positive NEGATIVE [facility] Urine sediment crystal ident ification by light microscopyon 05-20-2023 Crystals LM Nom (Urine sed) None Seen #/HPF None Seen [facility] Urine sediment leukocyte cou nt by microscopy (number/high power field)on 05-20-2023 WBC LM.HPF (Urine sed) [#/Area] 5-10 #/HPF NONE SEEN [facility] Urobilinogen Auto test strip (U) [Mass/Vol]on 05-20-2023 Urobilinogen Qn (U) 0.2 {Raeann'U}/dL 0.2-1.0 [facility] pH Auto test strip (U)on pH (U) 5.5 [pH] 5.0-9.0 [facility] ED Note-Physicianon 05-09-19 ED Note-Physician [id number]#1.00TIFF Normal [facility] Automated epithelial cells c ount in urine sediment (number/area)on 05-04-2023 Epithelial cells Auto (Urine sed) [#/Area] FEW #/LPF NONE/RARE [facility] Automated leukocytes count i n urine sediment (number/area)on 05-04-2023 WBC Auto (Urine sed) [#/Area] 5-10 #/HPF 0-2 [facility] Automated urine sediment negra cium oxalate crystal count by microscopy (number/high powon 05-04-2023 Calcium oxalate crystals LM.HPF (Urine sed) [#/Area] RARE [facility] Automated urine specific gra vity by refractometryon 05-04-2023 Specific gravity Refractometry automated (U) [Rel density] 1.025 1.005-1.02 5 [facility] Bilirubin Auto test strip (U ) [Mass/Vol]on 05-04-2023 Bilirubin (U) [Mass/Vol] Negative NEGATIVE [facility] Casts typing in urine sedime nt by light microscopyon 05-04-2023 Casts LM Nom (Urine sed) NONE SEEN #/LPF NONE SEEN [facility] Color Auto (U)on 05-04-2023 Color (U) LT. YELLOW YELLOW [facility] Ketones Auto test strip (U) [Mass/Vol]on 05-04-2023 Ketones (U) [Mass/Vol] TRACE mg/dL NEGATIVE [facility] Mucus LM Ql (Urine sed)on Mucus Ql (Urine sed) NONE SEEN NONE SEEN [facility] Protein Auto test strip (U) [Mass/Vol]on 05-04-2023 Protein (U) [Mass/Vol] 30 mg/dL NEG/[facility] Specific gravity Auto test s trip (U) [Rel density]on 05-04-2023 Specific gravity (U) [Rel density] CLEAR CLEAR [facility] Urine bacteria detection by automated methodon 05-04-2023 Bacteria Auto Ql (U) MODERATE #/HPF NONE SEEN [facility] Urine glucose measurement by test strip (mass/volume)on 05-04-2023 Glucose Test strip (U) [Mass/Vol] 100 mg/dL NEGATIVE [facility] Urine hemoglobin detection b y automated test stripon 05-04-2023 Hemoglobin Auto test strip Ql (U) LARGE NEGATIVE [facility] Urine nitrite detection by a utomated test stripon 05-04-2023 Nitrite Auto test strip Ql (U) LARGE NEGATIVE [facility] Nitrite Auto test strip Ql (U) Positive NEGATIVE [facility] Urine sediment crystal ident ification by light microscopyon 05-04-2023 Crystals LM Nom (Urine sed) Seen #/HPF None Seen [facility] Urine sediment leukocyte cou nt by microscopy (number/high power field)on 05-04-2023 WBC LM.HPF (Urine sed) [#/Area] 20-50 #/HPF NONE SEEN [facility] Urobilinogen Auto test strip (U) [Mass/Vol]on 05-04-2023 Urobilinogen Qn (U) 0.2 {Raeann'U}/dL 0.2-1.0 [facility] pH Auto test strip (U)on pH (U) 5.5 [pH] 5.0-9.0 [facility] Operative Reporton Operative Report [id number]#1.00TIFF Normal [facility] Screenson 04-29-2023 Screens [id number]#1.00TIFF Normal [facility] Screens [id number]#1.00TIFF Normal [facility] Ambulatory Visit Summaryon 0 04-28-2023 Ambulatory [...] sched urodynamics Where: [address], [place] [address] [phone] Medications What How Much When Instructions Unchanged [...] or d (more content not included)... Normal [facility] Patient Educationon 04-28-19 24 Patient Education Urology Urodynamic Testing Urodynamic [...] including vitamins, herbs, eye drops, creams, and lutd-zmb-lreftgk medicines. ? Whether you are or may [...] results be (more content not included)... Normal [facility] Urology Office/Clinic Noteon 04-28-2023 Urology Office/Clinic [...] of prostate) P (more content not included)... [facility] Comment on above: Result Comment: Elec tronically Signed By: Sara Bob MD\.br\Date and Time Signed: 04/28/23 11:12 EST\.br\Electronically Co-Signed By: Deborah Torres\.br\Date and Time Co-Signed: 04/28/23 10:44 EST Operative Reporton Operative Report [id number]#1.00TIFF [facility] Consent for Procedure/Surger yon 03-18-2023 Consent for Procedure/Surgery [id number]#1.00TIFF [facility] Screenson 02-03-2023 Screens [id number]#1.00TIFF [facility] Screens [id number]#1.00TIFF [facility] Ambulatory Visit Summaryon 1 04-05-2022 Ambulatory Visit Summary JOSEPH ESCALONA :1945 Visit Date:02/02/2023 Ambulatory Visit Instructions Your Diagnosis BPH with urinary obstruction Incomplete bladder emptying Screening PSA (prostate specific antigen) Asymptomatic microscopic hematuria Simple renal cyst Tests Performed Urnls Dip Stick Auto w/o Microscopy POC 48369 Your Care Team Attending Physician - BROOKS [...] sched cysto/TRUS Where: [address] [place] [address] [phone] Medications What How Much When Instructions Unchanged [...] Urnls Dip Stick Auto w/o Microscopy POC 54785 (02/02/2023) Bilirubin Urine Dipstick - Negative Blood Urine Dipstick - Trace-intact Glucose Urine Dipstick - 2+ 500 mg/dl Ketones Urine Dipstick - Negative Leukocytes Urine Dipstick - Negative Nitrite Urine Dipstick - Negative Protein Urine Dipstick - Negative Specific [place] Urine Dipstick - 1.025 Urine Appearance Urine [...] when yo (more content not included)... Normal [facility] Urology Office/Clinic Noteon 02-02-2023 Urology Office/Clinic [...] Contact Information BROOKS ANTHONY, ANGELI Montiel, URL [address] [facility] [place] [address] [phone] Additional Instructions: sched cysto/TRUS Patient Education Cystoscopy [...] mg oral (more content not included)... Normal [facility] Comment on above: Result Comment: Elec tronically Signed By: ANGELI GUY PA-C\.br\Date and Time Signed: 02/02/23 15:07 EST\.br\Electronically Co-Signed By: Deborah Torres\.br\Date and Time Co-Signed: 02/02/23 14:51 EST A1C HEMOGLOBINon 12-15-2022 HbA1c (Bld) [Mass fraction] 7.0 % [employer] Other Glucose - FINGER STICKon Glucose [Mass/Vol] 119 mg/dL [employer] Other HbA1c (Bld) [Mass fraction]o n 12-15-2022 A1C HEMOGLOBIN [employer] Other Office Visit (Cardiology)on 06-30-2022 Follow-up visit [...] managed by diabetes clinic at [facility], recent A1c 7.2 4. Obesity. Encouraged more [...] point out cardiac cause. Jaleesa Conn MD, [facility] Surgical History Problems History of Appendectomy History of Complete colonoscopy Managed By: Jluis Stokes MD (Gastroenterology) History of Knee arthroscopy Past Medical History Problems History of COVID-19 virus infection (029.89) (U07.1) Resolved Date: 30 Jun 2022 Current Meds Medication NameInstruction Aspirin EC 81 MG Oral Tablet Delayed ReleaseTAKE 1 TABLET EVERY OTHER DAY Basaglmauricio RojoPen 100 UNIT/ML Subcutaneous Solution Pen-injector Finasteride [...] Recorded: 30Jun2022 11:20AM Heart Rate96, L Radial Pyyfthfu618, LUE, Sitting Hcwbnvtxk41, LUE, Sitting Height5 ft 6 in Vbqitc830 lb BMI Otwovvyinh23.77 kg/m2 BSA Calculated2.01 Tobacco Useb) No PHQ-2 #1. Over the last 2 weeks have you felt down, depressed or hopeless? (If yes, answer PHQ-9 below)No PHQ-2 #2. Over the last 2 weeks have you felt little interest or pleasure (more content not included)... Normal [employer] Tobacco Screening.on 023 Adult depression screening assessment No [facility] y 250 DO Work Phone: Fall risk assessment a) No falls within the last year [facility] [employer] y 250 DO Work Phone: Tobacco use status CP b) No [facility] [employer] y 250 DO Work Phone: A1C HEMOGLOBINon 06-15-2022 HbA1c (Bld) [Mass fraction] 7.1 % [employer] Other Glucose - FINGER STICKon Glucose [Mass/Vol] 133 mg/dL [employer] Other HbA1c (Bld) [Mass fraction]o n 06-15-2022 A1C HEMOGLOBIN [facility] [employer] Other LIPID PROFILEon 06-10-2022 CHOL-HDL RATIO NORM SEE BELOW Normal [facility] Comment on above: Result Comment: 3.3 - 4.4 LOW RISK 4.4 - 7.1 AVERAGE RISK 7.1 - 11.0 MODERATE RISK >11.0 HIGH RISK Performed By: #### C MP, LIPID #### [facility] [address] [place] [address] Dr. Kim Roper Cholesterol [Mass/Vol] 132 mg/dL Normal <=200 [facility] Comment on above: Performed By: #### C MP, LIPID #### [facility] [address] [address] [address] Kim Roper Cholesterol in HDL [Mass/Vol] 47 mg/dL Normal 40-60 [facility] Comment on above: Performed By: #### C MP, LIPID #### [facility] [address] [address] [address] Kim Roper Cholesterol in LDL [Mass/Vol] 63.2 mg/dL Normal [facility] Comment on above: Performed By: #### C MP, LIPID #### [facility] [address] [address] [address] Kim Roper Cholesterol.total/Chol esterol in HDL [Mass ratio] 2.8 {ratio} Normal [facility] Comment on above: Performed By: #### C MP, LIPID #### [facility] [address] [address] [address] Kim Roper HDL NORMAL > or = 60 mg/dl - LO W CARDIOVASCULAR RISK <40 mg/dl - HIGH CARDIOVASCULAR RISK Normal [facility] Comment on above: Performed By: #### C MP, LIPID #### [facility] [address] [address] [address] Kim Roper LDL CALC NORMAL SEE BELOW Normal [facility] Comment on above: Result Comment: <100 mg/dl OPTIMAL 100 - 129 mg/dl NEAR OR ABOVE OPTIMAL 130 - 159 mg/dl BORDERLINE HIGH 160 - 189 mg/dl HIGH >190 mg/dl VERY HIGH Performed By: #### C MP, LIPID #### [facility] [address] [address] [address] Kim Roper Triglyceride [Mass/Vol] 109 mg/dL Normal <=150 [facility] Comment on above: Performed By: #### C MP, LIPID #### [facility] [address] [address] [address] Kim Roper VLDL CALC 21.8 mg/dL Normal [facility] Comment on above: Performed By: #### C MP, LIPID #### [facility] [address] [place] [address] Dr. Kim Roper MICROALB CREAT RATIO RANDOMo n 06-10-2022 mALB <1.3 Normal <=30.0 [facility] Comment on above: Performed By: #### M CRR #### [facility] [address] [address] [address] Kim Roper URINE CREAT 109.64 mg/dL Normal 20.00-300. 00 [facility] Comment on above: Performed By: #### M CRR #### [facility] [address] [place] [address] Dr. Kim Roper PROF 14(COMP METB)on 023 Albumin [Mass/Vol] 3.7 g/dL Normal 3.4-5.0 [facility] Comment on above: Performed By: #### C MP, LIPID #### [facility] [address] [address] [address] Kim Roper Albumin/Globulin [Mass ratio] 1.0 {ratio} Normal [facility] Comment on above: Performed By: #### C MP, LIPID #### [facility] [address] [address] [address] Kim Roper ALP [Catalytic activity/Vol] 47 U/L Normal 46-116 [facility] Comment on above: Performed By: #### C MP, LIPID #### [facility] [address] [address] [address] Kim Roper ALT [Catalytic activity/Vol] 40 U/L Normal 16-63 [facility] Comment on above: Performed By: #### C MP, LIPID #### [facility] [address] [address] [address] Kim Roper Anion gap [Moles/Vol] 11.4 mmol/L Normal [facility] Comment on above: Performed By: #### C MP, LIPID #### [facility] [address] [address] [address] Kim Roper AST [Catalytic activity/Vol] 21 U/L Normal 15-37 [facility] Comment on above: Performed By: #### C MP, LIPID #### [facility] [address] [place] [address] Dr. Kim Roper Bilirubin [Mass/Vol] 0.5 mg/dL Normal 0.2-1.0 [facility] Comment on above: Performed By: #### C MP, LIPID #### [facility] [address] [place] [address] Dr. Kim Roper Calcium [Mass/Vol] 8.9 mg/dL Normal 8.5-10.1 [facility] Comment on above: Performed By: #### C MP, LIPID #### [facility] [address] [place] [address] Dr. Kim Roper Chloride [Moles/Vol] 105 mmol/L Normal 98-107 [facility] Comment on above: Performed By: #### C MP, LIPID #### [facility] [address] [address] [address] Kim Roper CO2 [Moles/Vol] 29.3 mmol/L Normal 21.0-32.0 [facility] Comment on above: Performed By: #### C MP, LIPID #### [facility] [address] [address] [address] Kim Roper Creatinine [Mass/Vol] 0.88 mg/dL Normal 0.70-1.30 [facility] Comment on above: Performed By: #### C MP, LIPID #### [facility] [address] [address] [address] Kim Roper EGFR-AF HONDURAN >60 Normal >=60 [facility] Comment on above: Performed By: #### C MP, LIPID #### [facility] [address] [address] [address] Kim Roper EGFR-NON AF HONDURAN >60 Normal >=60 [facility] Comment on above: Performed By: #### C MP, LIPID #### [facility] [address] [address] [address] Kim Roper Globulin (S) [Mass/Vol] 3.6 g/dL Normal [facility] Comment on above: Performed By: #### C MP, LIPID #### [facility] [address] [address] [address] Kim Roper Glucose [Mass/Vol] 160 mg/dL Critically high 74-106 [facility] Comment on above: Performed By: #### C MP, LIPID #### [facility] [address] [address] [address] Kim Roper Potassium [Moles/Vol] 4.7 mmol/L Normal 3.5-5.1 [facility] Comment on above: Performed By: #### C MP, LIPID #### [facility] [address] [place] [address] Dr. Kim Roper Protein [Mass/Vol] 7.3 g/dL Normal 6.4-8.2 [facility] Comment on above: Performed By: #### C MP, LIPID #### [facility] [address] [address] [address] Kim Roper Sodium [Moles/Vol] 141 mmol/L Normal 136-145 [facility] Comment on above: Performed By: #### C MP, LIPID #### [facility] [address] [address] [address] Kim Roper Urea nitrogen [Mass/Vol] 11.0 mg/dL Normal 7.0-18.0 [facility] Comment on above: Performed By: #### C MP, LIPID #### [facility] [address] [address] [address] Kim Roper Urea nitrogen/Creatinine [Mass ratio] 12.5 mg/mg Normal [facility] Comment on above: Performed By: #### C MP, LIPID #### [facility] [address] [address] [address] Kim Roper VITAMIN B12on 06-10-2022 Cobalamin (Vitamin B12) [Mass/Vol] 281.0 pg/mL Normal 193.0-986. 0 [facility] Comment on above: Performed By: #### V ITB12 #### [facility] [address] [place] [address] Dr. Kim Roper LIPID PROFILEon 06-20-2021 CHOL-HDL RATIO NORM SEE BELOW Normal [facility] Comment on above: Result Comment: 3.3 - 4.4 LOW RISK 4.4 - 7.1 AVERAGE RISK 7.1 - 11.0 MODERATE RISK >11.0 HIGH RISK Performed By: #### L IPID, CMP #### [facility] [address] [place] [address] Dr. Kim Roper Cholesterol [Mass/Vol] 114 mg/dL Normal <=200 [facility] Comment on above: Performed By: #### L IPID, CMP #### [facility] [address] [place] [address] Dr. Kim Roper Cholesterol in HDL [Mass/Vol] 42 mg/dL Normal 40-60 [facility] Comment on above: Performed By: #### L IPID, CMP #### [facility] [address] [place] [address] Dr. Kim Roper Cholesterol in LDL [Mass/Vol] 45.6 mg/dL Normal [facility] Comment on above: Performed By: #### L IPID, CMP #### [facility] [address] [place] [address] Dr. Kim Roper Cholesterol.total/Chol esterol in HDL [Mass ratio] 2.7 {ratio} Normal [facility] Comment on above: Performed By: #### L IPID, CMP #### [facility] [address] [address] [address] Kim Roper HDL NORMAL > or = 60 mg/dl - LO W CARDIOVASCULAR RISK <40 mg/dl - HIGH CARDIOVASCULAR RISK Normal [facility] Comment on above: Performed By: #### L IPID, CMP #### [facility] [address] [address] [address] Kim Roper LDL CALC NORMAL SEE BELOW Normal [facility] Comment on above: Result Comment: <100 mg/dl OPTIMAL 100 - 129 mg/dl NEAR OR ABOVE OPTIMAL 130 - 159 mg/dl BORDERLINE HIGH 160 - 189 mg/dl HIGH >190 mg/dl VERY HIGH Performed By: #### L IPID, CMP #### [facility] [address] [address] [address] Kim Roper Triglyceride [Mass/Vol] 132 mg/dL Normal <=150 [facility] Comment on above: Performed By: #### L IPID, CMP #### [facility] [address] [address] [address] Kim Roper VLDL CALC 26.4 mg/dL Normal [facility] Comment on above: Performed By: #### L IPID, CMP #### [facility] [address] [place] [address] Dr. Kim Roper MICROALB CREAT RATIO RANDOMo n 06-20-2021 mALB <1.3 Normal <=30.0 [facility] Comment on above: Performed By: #### M CRR #### [facility] [address] [address] [address] Kim Roper URINE CREAT 126.66 mg/dL Normal 20.00-300. 00 [facility] Comment on above: Performed By: #### M CRR #### [facility] [address] [place] [address] Dr. Kim Roper PROF 14(COMP METB)on 022 Albumin [Mass/Vol] 3.9 g/dL Normal 3.4-5.0 [facility] Comment on above: Performed By: #### L IPID, CMP #### [facility] [address] [place], [place] [id number] Dr. Kim Roper Albumin/Globulin [Mass ratio] 1.2 {ratio} Normal [facility] Comment on above: Performed By: #### L IPID, CMP #### [facility] [address] [address] [address] Kim Roper ALP [Catalytic activity/Vol] 46 U/L Normal 46-116 [facility] Comment on above: Performed By: #### L IPID, CMP #### [facility] [address] [address] [address] Kim Roper ALT [Catalytic activity/Vol] 32 U/L Normal 16-63 [facility] Comment on above: Performed By: #### L IPID, CMP #### [facility] [address] [place] [address] Dr. Kim Roper Anion gap [Moles/Vol] 10.9 mmol/L Normal [facility] Comment on above: Performed By: #### L IPID, CMP #### [facility] [address] [place] [address] Dr. Kim Roper AST [Catalytic activity/Vol] 17 U/L Normal 15-37 [facility] Comment on above: Performed By: #### L IPID, CMP #### [facility] [address] [place] [address] Dr. Kim Roper Bilirubin [Mass/Vol] 0.6 mg/dL Normal 0.2-1.3 [facility] Comment on above: Performed By: #### L IPID, CMP #### [facility] [address] [place] [address] Dr. Kim Roper Calcium [Mass/Vol] 8.7 mg/dL Normal 8.5-10.1 [facility] Comment on above: Performed By: #### L IPID, CMP #### [facility] [address] [address] [address] Kim Roper Chloride [Moles/Vol] 103 mmol/L Normal 98-107 [facility] Comment on above: Performed By: #### L IPID, CMP #### [facility] [address] [place] [address] Dr. Kim Roper CO2 [Moles/Vol] 30.4 mmol/L Critically high 22.0-30.0 [facility] Comment on above: Performed By: #### L IPID, CMP #### [facility] [address] [address] [address] Kim Roper Creatinine [Mass/Vol] 0.77 mg/dL Normal 0.66-1.25 [facility] Comment on above: Performed By: #### L IPID, CMP #### [facility] [address] [address] [address] Kim Roper EGFR-AF HONDURAN >60 Normal >=60 [facility] Comment on above: Performed By: #### L IPID, CMP #### [facility] [address] [address] [address] Kim Roper EGFR-NON AF HONDURAN >60 Normal >=60 [facility] Comment on above: Performed By: #### L IPID, CMP #### [facility] [address] [address] [address] Kim Roper Globulin (S) [Mass/Vol] 3.3 g/dL Normal [facility] Comment on above: Performed By: #### L IPID, CMP #### [facility] [address] [address] [address] Kim Roper Glucose [Mass/Vol] 88 mg/dL Normal 74-106 [facility] Comment on above: Performed By: #### L IPID, CMP #### [facility] [address] [address] [address] Kim Roper Potassium [Moles/Vol] 4.3 mmol/L Normal 3.4-5.0 [facility] Comment on above: Performed By: #### L IPID, CMP #### [facility] [address] [address] [address] Kim Roper Protein [Mass/Vol] 7.2 g/dL Normal 6.1-8.2 [facility] Comment on above: Performed By: #### L IPID, CMP #### [facility] [address] [address] [address] Kim Roper Sodium [Moles/Vol] 140 mmol/L Normal 137-145 [facility] Comment on above: Performed By: #### L IPID, CMP #### [facility] [address] [address] [address] Kim Roper Urea nitrogen [Mass/Vol] 15.0 mg/dL Normal 7.0-18.0 [facility] Comment on above: Performed By: #### L IPID, CMP #### [facility] [address] [address] [address] Kim Roper Urea nitrogen/Creatinine [Mass ratio] 19.5 mg/mg Normal [facility] Comment on above: Performed By: #### L IPID, CMP #### [facility] [address] [place] [address] Dr. Kim Roper VITAMIN B12on 06-20-2021 Cobalamin (Vitamin B12) [Mass/Vol] 430.0 pg/mL Normal 239.0-931. 0 [facility] Comment on above: Performed By: #### V ITB12 #### [facility] [address] [place] [address] Dr. Kim Roper Tobacco Screening.on 021 Fall risk assessment a) No falls within the last year [facility] y [address] DO Work Phone: Tobacco use status [facility] b) No [facility] y 250 DO Work Phone: GLUCOSE, FINGERSTICK-IN OFFI CEon 03-20-2020 Glucose [Mass/Vol] 155 mg/dL High 80-116 [facility] Comment on above: Performed By: #### T ROP I #### [facility] [address] [place] [address], BASIC METABOLIC PANELon 03-01 Anion gap [Moles/Vol] 14 mmol/L High 5-13 [facility] Comment on above: Performed By: #### E ALANIS, CH8 #### [facility] [address] [place] [address], Calcium [Mass/Vol] 8.3 mg/dL Low 8.4-10.4 [facility] Comment on above: Performed By: #### DESI DALE #### [facility] [address] [place] [address], Chloride [Moles/Vol] 101 mmol/L Normal 97-111 [facility] Comment on above: Performed By: #### DESI DALE #### [facility] [address] [place] [address], CO2 [Moles/Vol] 24 mmol/L Normal 21-30 [facility] Comment on above: Performed By: #### DESI DALE #### [facility] [address] [place] [address], Creatinine [Mass/Vol] 0.73 mg/dL Low 0.80-1.30 [facility] Comment on above: Performed By: #### DESI DALE #### [facility] [address] [place] [address], GFR/1.73 sq M.predicted MDRD (S/P/Bld) [Vol rate/Area] 91 mL/min/1.73sqm Normal >=60 [facility] Comment on above: Performed By: #### DESI DALE #### [facility] [address] [place] [address], Glucose [Mass/Vol] 221 mg/dL High 80-116 [facility] Comment on above: Performed By: #### DESI DAEL #### [facility] [address] [place] [address], Potassium [Moles/Vol] 4.0 mmol/L Normal 3.3-5.3 [facility] Comment on above: Performed By: #### DESI DALE #### [facility] [address] [place] [address], Sodium [Moles/Vol] 135 mmol/L Normal 135-148 [facility] Comment on above: Performed By: #### DESI DALE #### [facility] [address] [place] [address], Urea nitrogen [Mass/Vol] 8 mg/dL Normal 8-22 [facility] Comment on above: Performed By: #### DESI DALE #### [facility] [address] [place] [address], CBC WITH DIFFERENTIALon 03-01 Basophils (Bld) [#/Vol] 0.07 10*3/uL Normal 0.00-0.20 [facility] Comment on above: Performed By: #### T ROP I #### [facility] [address] [place] [address], Basophils/100 WBC (Bld) 0.7 % Normal <=1.9 [facility] Comment on above: Performed By: #### T ROP I #### [facility] [address] [place] [address], Eosinophils (Bld) [#/Vol] 0.02 10*3/uL Normal 0.00-0.70 [facility] Comment on above: Performed By: #### T ROP I #### [facility] [address] [place] [address], Eosinophils/100 WBC (Bld) 0.2 % Normal 0.1-4.0 [facility] Comment on above: Performed By: #### T ROP I #### [facility] [address] [place] [address], Erythrocyte distribution width (RBC) [Ratio] 14.9 % High 11.5-14.5 [facility] Comment on above: Performed By: #### T ROP I #### [facility] [address] [place] [address], Hematocrit (Bld) [Volume fraction] 41.2 % Normal 41.0-53.0 [facility] Comment on above: Performed By: #### T ROP I #### [facility] [address] [place] [address], Hemoglobin (Bld) [Mass/Vol] 14.0 g/dL Normal 13.9-16.3 [facility] Comment on above: Performed By: #### T ROP I #### [facility] [address], [place], Lymphocytes (Bld) [#/Vol] 0.59 10*3/uL Low 1.00-4.80 [facility] Comment on above: Performed By: #### T ROP I #### [facility] [address], [place], Lymphocytes/100 WBC (Bld) 6.1 % Low 24.0-44.0 [facility] Comment on above: Performed By: #### T ROP I #### [facility] [address] [place] [address], MCH (RBC) [Entitic mass] 29.5 pg Normal 26.0-34.0 [facility] Comment on above: Performed By: #### T ROP I #### [facility] [address] [place] [address], MCHC (RBC) [Mass/Vol] 34.1 g/dL Normal 32.0-35.9 [facility] Comment on above: Performed By: #### T ROP I #### [facility] [address] [place] [address], MCV (RBC) [Entitic vol] 87 fL Normal 80-100 [facility] Comment on above: Performed By: #### T ROP I #### [facility] [address] [place] [address], Monocytes (Bld) [#/Vol] 0.61 10*3/uL Normal 0.20-1.00 [facility] Comment on above: Performed By: #### T ROP I #### [facility] [address], [place], Monocytes (Bld) [#/Vol] 18 10*3/uL Normal <=20 [facility] Comment on above: Performed By: #### T ROP I #### [facility] [address], [place], Monocytes/100 WBC (Bld) 6.3 % Normal 2.0-11.0 [facility] Comment on above: Performed By: #### T ROP I #### [facility] [address], [place], Neutrophils (Bld) [#/Vol] 8.39 10*3/uL High 1.50-8.00 [facility] Comment on above: Performed By: #### T ROP I #### [facility] [address], [place], Neutrophils/100 WBC (Bld) 86.7 % High 31.0-76.0 [facility] Comment on above: Performed By: #### T ROP I #### [facility] [address], [place], Nucleated RBC (Bld) [#/Vol] 0.0 10*3/uL Normal [facility] Comment on above: Performed By: #### T ROP I #### [facility] [address], [place], Nucleated RBC (Bld) [#/Vol] 0.00 10*3/uL Normal [facility] Comment on above: Performed By: #### T ROP I #### [facility] [address], [place], Platelet mean volume (Bld) [Entitic vol] 6.4 fL Low 7.5-11.2 [facility] Comment on above: Performed By: #### T ROP I #### [facility] [address], [place], Platelets (Bld) [#/Vol] 221 10*3/uL Normal 150-400 [facility] Comment on above: Performed By: #### T ROP I #### [facility] [address], [place], RBC (Bld) [#/Vol] 4.76 10*6/uL Normal 4.50-5.90 [facility] Comment on above: Performed By: #### T ROP I #### [facility] [address], [place], WBC (Bld) [#/Vol] 9.7 10*3/uL Normal 4.5-11.5 [facility] Comment on above: Performed By: #### T ROP I #### [facility] [address], [place], CT HEAD W/O CONTRASTon 03-19 CT [...] small vessel ischemia. MACRO: None Normal [facility] ETHANOL, SERUMon 03-19-2020 Ethanol [Mass/Vol] mg/dL Normal None Detected [facility] Comment on above: Performed By: #### E ALANIS, CH8 #### [facility] [address], [place], HIV1 HIV2 AGAB SCRNon 2020 HIV AG-AB SCREEN Non-Reactive Normal Non-Reacti ve [facility] Comment on above: Order Comment: HIV Information: ???[place] Rev. code 3701.243(E): This information has been [...] #### h iv1 hiv2 agab scrn #### [facility] [address] [place] [address], LACTIC ACIDon 03-19-2020 Lactate [Moles/Vol] 1.5 mmol/L Normal 0.5-2.0 [facility] Comment on above: Performed By: #### L ACT #### [facility] [address] [place] [address], PARTIAL THROMBOPLASTIN TIMEo n 03-19-2020 aPTT Coag (Bld) [Time] 29 s Normal 25-37 [facility] Comment on above: Performed By: #### P T, APTT #### [facility] [address] [place] [address], PROTHROMBIN TIME AND INRon 0 03-19-2020 INR Coag (PPP) [Relative time] 0.96 {INR} Normal 0.90-1.10 [facility] Comment on above: Performed By: #### P T, APTT #### [facility] [address] [place] [address], PT Coag (PPP) [Time] 10.9 s Normal 9.7-12.9 [facility] Comment on above: Performed By: #### P T, APTT #### [facility] [address] [place] [address], TROPONIN Ion 03-19-2020 Troponin I.cardiac [Mass/Vol] ng/mL Normal <0.120 [facility] Comment on above: Result Comment: Rang [...] T ROP I #### [facility] [address] [place] [address], Troponin I.cardiac [Mass/Vol] ng/mL Normal <0.120 [facility] Comment on above: Result Comment: Rang [...] Performed By: #### T ROP I #### [facility] [address] [place] [address], Troponin I.cardiac [Mass/Vol] ng/mL Normal <0.120 [facility] Comment on above: Result Comment: Rang [...] Performed By: #### T ROP I #### [facility] [address] [place] [address], TYPE AND SCREENon 03-19-2020 ABO and Rh group Nom (Bld) No Previous Results Normal [facility] Comment on above: Performed By: #### T S #### [facility] [address] [place] [address], ABO and Rh group Nom (Bld) A Positive Normal [facility] Comment on above: Performed By: #### T S #### [facility] [address] [place] [address], ABSC INT Negative Normal [facility] Comment on above: Performed By: #### T S #### [facility] [address] [place] [address], NOH CARDIAC STRESS/REST INJE CTIONon 08-15-2019 [facility] CARDIAC STRESS/REST INJECTION Patient Name: JOSEPH ESCALONA STUDY: MYOCARDIAL PERFUSION STRESS TEST WITH LEXISCAN Performing facility: [facility], [address] [place] [address], [address], [place] [address] [facility] Provider: Jaleesa Conn MD, [facility] PCP: Dr. Zia GRIGGS Supervising provider: Chinedu Mcgarry MD, [facility] INDICATION: ASCVD DM Hyperlipidemia HISTORY: Gender: M; Age: 74 y/o ; Height: 167.64 cm; Weight: 92.6540250 kg. CAD; Diabetes; HTN; Abnormal EKG; High Cholesterol; Quit smoking years ago. Cardiac catheterization 2009. COMPARISON: Previous nuclear testing completed 2009 at [facility]. ACCESSION NUMBER(S): [id number]; [id number]; [id number] ORDERING CLINICIAN: JALEESA CONN TECHNIQUE: ONE DAY [...] study. Electronically signed by: CLARE FONSECA MD [facility] Vital Signs Date Time Vital Sign Value Performing Clinician Facility 09-07-2024 12:21-0400 Body height 167.64 cm Dion Ball DO Work Phone: [facility] 09-07-2024 12:21-0400 Body mass index (BMI) [Ratio] 31.6 kg/m2 Dion Ball DO Work Phone: [facility] 09-07-2024 12:21-0400 Body weight 88.9 kg Dion Ball DO Work Phone: [facility] 09-07-2024 12:21-0400 Diastolic blood pressure 76 mm[Hg] Dion Ball DO Work Phone: [facility] 09-07-2024 12:21-0400 Heart rate 69 /min Dion Ball DO Work Phone: [facility] 09-07-2024 12:21-0400 Respiratory rate 12 /min Dion Ball DO Work Phone: [facility] 09-07-2024 12:21-0400 SaO2% (BldA) [Mass fraction] 97 % Dion Ball DO Work Phone: [facility] 09-07-2024 12:21-0400 Systolic blood pressure 144 mm[Hg] Dion Ball DO Work Phone: [facility] 04-12-2024 11:48-0500 Body height 167.6 cm Jaleesa Conn MD Work Phone: [facility] 04-12-2024 11:48-0500 Body mass index (BMI) [Ratio] 31.86 kg/m2 Jaleesa Conn MD Work Phone: [facility] 04-12-2024 11:48-0500 Body weight 89.54 kg Jaleesa Conn MD Work Phone: [facility] 04-12-2024 11:48-0500 Diastolic blood pressure 68 mm[Hg] Jaleesa Conn MD Work Phone: [facility] 04-12-2024 11:48-0500 Heart rate 80 /min Jaleesa Conn MD Work Phone: [facility] 04-12-2024 11:48-0500 Systolic blood pressure 124 mm[Hg] Jaleesa Conn MD Work Phone: [facility] 04-04-2024 14:00-0500 Diastolic blood pressure 75 mm[Hg] [facility] 04-04-2024 14:00-0500 Systolic blood pressure 145 mm[Hg] [facility] 04-04-2024 13:55-0500 Body height 167.64 cm [facility] 04-04-2024 13:55-0500 Body mass index (BMI) [Ratio] 31.6 kg/m2 [facility] 04-04-2024 13:55-0500 Body weight 88.98 kg [facility] 04-04-2024 13:55-0500 Heart rate 80 /min [facility] 04-04-2024 13:55-0500 Respiratory rate 18 /min [facility] 04-04-2024 13:55-0500 SaO2% (BldA) [Mass fraction] 98 % [facility] 03-06-2024 13:40-0500 Body height 167.64 cm [facility] 03-06-2024 13:40-0500 Body mass index (BMI) [Ratio] 31.8 kg/m2 [facility] 03-06-2024 13:40-0500 Body weight 89.35 kg [facility] 03-06-2024 13:40-0500 Diastolic blood pressure 76 mm[Hg] [facility] 03-06-2024 13:40-0500 Heart rate 90 /min [facility] 03-06-2024 13:40-0500 Respiratory rate 12 /min [facility] 03-06-2024 13:40-0500 Systolic blood pressure 125 mm[Hg] [facility] 12-31-2023 09:48-0400 Body mass index (BMI) [Ratio] 31 kg/m2 [facility] 12-31-2023 09:48-0400 Diastolic blood pressure 89 mm[Hg] [facility] 12-31-2023 09:48-0400 Systolic blood pressure 139 mm[Hg] [facility] 12-31-2023 09:28-0400 Body height 167.64 cm [facility] 12-31-2023 09:28-0400 Body weight 87.2 kg [facility] 12-31-2023 09:28-0400 Heart rate 71 /min [facility] 12-31-2023 09:28-0400 Respiratory rate 12 /min [facility] 12-29-2023 14:29-0400 Body mass index (BMI) [Ratio] 31.4 kg/m2 [facility] 12-29-2023 13:58-0400 Body height 167.64 cm [facility] 12-29-2023 13:58-0400 Body mass index (BMI) [Ratio] 31.4 kg/m2 [facility] 12-29-2023 13:58-0400 Body weight 88.45 kg [facility] 12-29-2023 13:58-0400 Diastolic blood pressure 78 mm[Hg] [facility] 12-29-2023 13:58-0400 Heart rate 59 /min [facility] 12-29-2023 13:58-0400 Respiratory rate 18 /min [facility] 12-29-2023 13:58-0400 SaO2% (BldA) [Mass fraction] 96 % [facility] 12-29-2023 13:58-0400 Systolic blood pressure 149 mm[Hg] [facility] 10-27-2023 12:35-0400 Body weight 127 mg [facility] 09-06-2023 10:04-0400 Body height 167.64 cm [facility] 09-06-2023 10:04-0400 Body mass index (BMI) [Ratio] 32 kg/m2 [facility] 09-06-2023 10:04-0400 Body weight 89.98 kg [facility] 09-06-2023 10:04-0400 Diastolic blood pressure 76 mm[Hg] [facility] 09-06-2023 10:04-0400 Heart rate 86 /min [facility] 09-06-2023 10:04-0400 Respiratory rate 12 /min [facility] 09-06-2023 10:04-0400 Systolic blood pressure 138 mm[Hg] [facility] 06-30-2023 11:18-0400 Diastolic blood pressure 80 mm[Hg] Jaleesa Conn MD Work Phone: [facility] 06-30-2023 11:18-0400 Systolic blood pressure 136 mm[Hg] Jaleesa Conn MD Work Phone: [facility] 06-30-2023 11:00-0400 Body height 167.6 cm Jaleesa Conn MD Work Phone: [facility] 06-30-2023 11:00-0400 Body mass index (BMI) [Ratio] 32.28 kg/m2 Jaleesa Conn MD Work Phone: [facility] 06-30-2023 11:00-0400 Body weight 90.72 kg Jaleesa Conn MD Work Phone: [facility] 06-30-2023 11:00-0400 Heart rate 76 /min Jaleesa Conn MD Work Phone: [facility] 06-24-2023 13:33-0400 Body height 167.64 cm [facility] 06-24-2023 13:33-0400 Body mass index (BMI) [Ratio] 32.3 kg/m2 [facility] 06-24-2023 13:33-0400 Body weight 90.71 kg [facility] 06-24-2023 13:33-0400 Diastolic blood pressure 71 mm[Hg] [facility] 06-24-2023 13:33-0400 Heart rate 78 /min [facility] 06-24-2023 13:33-0400 Respiratory rate 18 /min [facility] 06-24-2023 13:33-0400 SaO2% (BldA) [Mass fraction] 97 % [facility] 06-24-2023 13:33-0400 Systolic blood pressure 142 mm[Hg] [facility] 05-24-2023 11:56-0400 Body height 167.64 cm [facility] 05-24-2023 11:56-0400 Body mass index (BMI) [Ratio] 32.3 kg/m2 [facility] 05-24-2023 11:56-0400 Body weight 90.71 kg [facility] 05-24-2023 11:56-0400 Diastolic blood pressure 83 mm[Hg] [facility] 05-24-2023 11:56-0400 Heart rate 90 /min [facility] 05-24-2023 11:56-0400 Respiratory rate 16 /min [facility] 05-24-2023 11:56-0400 Systolic blood pressure 172 mm[Hg] [facility] 04-28-2023 10:03-0500 Blood Pressure Location Sara Lue [facility] 04-28-2023 10:03-0500 Diastolic blood pressure 82 mm[Hg] Sara Lue [facility] 04-28-2023 10:03-0500 Systolic blood pressure 142 mm[Hg] Sara Lue [facility] 03-17-2023 09:00-0500 Body height 167.64 cm Dion Griggs Other [facility] 03-17-2023 09:00-0500 Body mass index (BMI) [Ratio] 33.41 kg/m2 Dion Griggs Other [employer] Other 03-17-2023 09:00-0500 Body weight 93.9 kg Dion Ball Other [facility] [employer] Other 03-17-2023 09:00-0500 Body weight 93.89 kg [facility] 03-17-2023 09:00-0500 Diastolic blood pressure 80 mm[Hg] Dion Ball Other [facility] 03-17-2023 09:00-0500 Respiratory rate 12 /min Dion Ball Other [facility] [employer] Other 03-17-2023 09:00-0500 Systolic blood pressure 132 mm[Hg] Dion Ball Other [facility] 02-02-2023 14:05-0500 Blood Pressure Location ANGELI BROOKS [facility] 02-02-2023 14:05-0500 Diastolic blood pressure 74 mm[Hg] ANGELI BROOKS [facility] 02-02-2023 14:05-0500 Heart rate 82 /min ANGELI BROOKS [facility] 02-02-2023 14:05-0500 Respiratory rate 16 /min ANGELI BROOKS [facility] 02-02-2023 14:05-0500 Systolic blood pressure 132 mm[Hg] ANGELI BROOKS [facility] 12-15-2022 13:00-0400 Body height 167.64 cm [employer] Other [employer] [facility] [employer] Other 12-15-2022 13:00-0400 Body mass index (BMI) [Ratio] 33.23 kg/m2 [employer] Other [employer] Other 12-15-2022 13:00-0400 Body weight 93.4 kg Tondra Mapus Other [employer] Other 12-15-2022 13:00-0400 Diastolic blood pressure 87 mm[Hg] Tondra Mapus Other [employer] Other 12-15-2022 13:00-0400 Respiratory rate 18 /min Tondra Mapus Other [employer] Other 12-15-2022 13:00-0400 SaO2% (BldA) [Mass fraction] 97 % Tondra Mapus Other [employer] Other 12-15-2022 13:00-0400 Systolic blood pressure 154 mm[Hg] Tondra Mapus Other [employer] Other 09-02-2022 10:30-0400 Body height 167.64 cm Dion Ball Other [employer] Other 09-02-2022 10:30-0400 Body mass index (BMI) [Ratio] 32.89 kg/m2 Dion Ball Other [employer] Other 09-02-2022 10:30-0400 Body weight 92.44 kg Dion Ball Other [employer] Other 09-02-2022 10:30-0400 Diastolic blood pressure 80 mm[Hg] Dion Ball Other [employer] Other 09-02-2022 10:30-0400 Respiratory rate 12 /min Dion Ball Other [employer] Other 09-02-2022 10:30-0400 Systolic blood pressure 130 mm[Hg] Dion Ball Other [employer] Other 08-20-2022 10:45-0400 Body height 167.64 cm Dion Ball Other [employer] Other 08-20-2022 10:45-0400 Body mass index (BMI) [Ratio] 32.47 kg/m2 Dion Ball Other [employer] Other 08-20-2022 10:45-0400 Body weight 91.26 kg Dion Ball Other [employer] Other 08-20-2022 10:45-0400 Diastolic blood pressure 77 mm[Hg] Dion Ball Other [employer] Other 08-20-2022 10:45-0400 Respiratory rate 12 /min Dion Ball Other [employer] Other 08-20-2022 10:45-0400 Systolic blood pressure 150 mm[Hg] Dion Ball Other [employer] Other 08-04-2022 10:02-0400 Blood Pressure Location ANGELI BROOKS [facility] 08-04-2022 10:02-0400 Diastolic blood pressure 78 mm[Hg] ANGELI BROOKS [facility] 08-04-2022 10:02-0400 Heart rate 68 /min ANGELI BROOKS [facility] 08-04-2022 10:02-0400 Respiratory rate 16 /min ANGELI BROOKS [facility] 08-04-2022 10:02-0400 Systolic blood pressure 130 mm[Hg] ANGELI GUY [facility] 07-23-2022 11:09-0400 Diastolic blood pressure 78 mm[Hg] Dion E Ball Work Phone: [facility] DO Work Phone: 07-23-2022 11:09-0400 Systolic blood pressure 138 mm[Hg] Dion E Ball Work Phone: [facility] DO Work Phone: 07-23-2022 11:06-0400 Body height 167.64 cm Dion E Ball Work Phone: [facility] DO Work Phone: 07-23-2022 11:06-0400 Body mass index (BMI) [Ratio] 32.77 kg/m2 Dion E Ball Work Phone: [facility] DO Work Phone: 07-23-2022 11:06-0400 Body surface area Derived from formula 2.01 m2 Dion E Ball Work Phone: [facility] DO Work Phone: 07-23-2022 11:06-0400 Body weight 92.08 kg Dion E Ball Work Phone: [facility] DO Work Phone: 07-23-2022 11:06-0400 Diastolic blood pressure 80 mm[Hg] Dion E Ball Work Phone: [facility] DO Work Phone: 07-23-2022 11:06-0400 Heart rate 90 /min Dion E Ball Work Phone: [facility] DO Work Phone: 07-23-2022 11:06-0400 Systolic blood pressure 140 mm[Hg] Dion Montiel Ball Work Phone: [facility] DO Work Phone: 06-30-2022 11:20-0400 Body height 167.64 cm Dion E Ball Work Phone: [facility] DO Work Phone: 06-30-2022 11:20-0400 Body mass index (BMI) [Ratio] 32.77 kg/m2 Dion Montiel Ball Work Phone: [facility] DO Work Phone: 06-30-2022 11:20-0400 Body surface area Derived from formula 2.01 m2 Dion Montiel Ball Work Phone: [facility] DO Work Phone: 06-30-2022 11:20-0400 Body weight 92.08 kg Dion Montiel Ball Work Phone: [facility] DO Work Phone: 06-30-2022 11:20-0400 Diastolic blood pressure 88 mm[Hg] Dion Montiel Ball Work Phone: [facility] DO Work Phone: 06-30-2022 11:20-0400 Heart rate 96 /min Dion Montiel Ball Work Phone: [facility] DO Work Phone: 06-30-2022 11:20-0400 Systolic blood pressure 158 mm[Hg] Dion Montiel Ball Work Phone: [facility] DO Work Phone: 06-15-2022 14:30-0400 Body height 167.64 cm Ynes Jain Other [employer] Other 06-15-2022 14:30-0400 Body mass index (BMI) [Ratio] 33.18 kg/m2 Tondra Mapus Other [employer] Other 06-15-2022 14:30-0400 Body weight 93.26 kg Tondra Mapus Other [employer] Other 06-15-2022 14:30-0400 Diastolic blood pressure 85 mm[Hg] Tondra Mapus Other [employer] Other 06-15-2022 14:30-0400 Respiratory rate 18 /min Tondra Mapus Other [employer] Other 06-15-2022 14:30-0400 SaO2% (BldA) [Mass fraction] 95 % Tondra Mapus Other [employer] Other 06-15-2022 14:30-0400 Systolic blood pressure 151 mm[Hg] Tondra Mapus Other [employer] Other 02-25-2022 09:34-0500 Blood Pressure Location ANGELI BROOKS [facility] 02-25-2022 09:34-0500 Diastolic blood pressure 82 mm[Hg] ANGELI BROOKS [facility] 02-25-2022 09:34-0500 Heart rate 68 /min ANGELI BROOKS [facility] 02-25-2022 09:34-0500 Respiratory rate 16 /min ANGELI BROOKS [facility] 02-25-2022 09:34-0500 Systolic blood pressure 138 mm[Hg] ANGELI GUY [facility] 08-26-2021 10:43-0400 Blood Pressure Location Kailee Mckinney Jr. [facility] 08-26-2021 10:43-0400 Diastolic blood pressure 76 mm[Hg] Kailee Mckinney Jr. [facility] 08-26-2021 10:43-0400 Heart rate 85 /min Kailee Mckinney Jr. [facility] 08-26-2021 10:43-0400 Respiratory rate 16 /min Kailee Mckinney Jr. [facility] 08-26-2021 10:43-0400 Systolic blood pressure 138 mm[Hg] Kailee Mckinney Jr. [facility] 01-06-2021 14:59-0500 Body height 167.64 cm Dion Griggs Work Phone: [facility] [employer] DO Work Phone: 01-06-2021 14:59-0500 Body mass index (BMI) [Ratio] 32.6 kg/m2 Dion Griggs Work Phone: [facility] DO Work Phone: 01-06-2021 14:59-0500 Body surface area Derived from formula 2.01 m2 Dion Griggs Work Phone: [facility] DO Work Phone: 01-06-2021 14:59-0500 Body weight 91.63 kg Dion Griggs Work Phone: [facility] DO Work Phone: 01-06-2021 14:59-0500 Diastolic blood pressure 76 mm[Hg] Dion Griggs Work Phone: [facility] DO Work Phone: 01-06-2021 14:59-0500 Heart rate 86 /min Dion Griggs Work Phone: [facility] DO Work Phone: 01-06-2021 14:59-0500 Systolic blood pressure 128 mm[Hg] Dion Griggs Work Phone: [facility] DO Work Phone: Encounters Encounter Date Encounter Type Care Provider Facility Start: 09-07-2024 End: 09-07-2024 ambulatory Dion Griggs DO Work Phone: [facility] Work Phone: Start: 09-07-2024 End: 09-07-2024 Patient encounter procedure Dion Griggs DO -[facility] Work Phone: Start: 04-12-2024 End: 04-12-2024 Office outpatient visit 25 minutes Jaleesa Conn MD Work Phone: [facility] Comment on above: ASCVD (arteriosclero tic cardiovascular disease) (Primary Dx); Essential hypertension, benign; Mixed hyperlipidemia; Type 2 diabetes mellitus without complication, with long-term current use of insulin (Multi); Obstructive sleep apnea syndrome; BMI 31.0-31.9,adult; Former smoker; Obesity, Class I, BMI 30-34.9 Start: 04-12-2024 End: 04-12-[address] [facility] Start: 04-04-2024 End: 04-04-2024 ambulatory [facility] Work Phone: Start: 04-04-2024 End: 04-04-2024 Patient encounter procedure [facility] Work Phone: Start: 03-06-2024 End: 03-06-2024 ambulatory [facility] Work Phone: Start: 03-06-2024 End: 03-06-2024 Patient encounter procedure [facility] Work Phone: Start: 12-31-2023 End: 12-31-2023 ambulatory [facility] Work Phone: Start: 12-31-2023 End: 12-31-2023 Patient encounter procedure [facility] Work Phone: Start: 12-29-2023 End: 12-29-2023 ambulatory [facility] Work Phone: Start: 12-29-2023 End: 12-29-2023 Patient encounter procedure [facility] Work Phone: Start: 12-13-2023 End: 12-13-2023 ambulatory [facility] Work Phone: Start: 12-13-2023 End: 12-13-2023 Patient encounter procedure [facility] Work Phone: Start: 11-30-2023 Non-patient / Non-visit [facility] Work Phone: Start: 11-09-2023 End: 11-09-2023 ambulatory Sara Bob Facility:[facility] Start: 11-09-2023 End: 11-09-2023 Patient encounter procedure Sara Bob [facility] Start: 10-27-2023 Non-patient / Non-visit [facility] Work Phone: Start: 10-27-2023 End: 10-27-2023 ambulatory Sara Bob Facility:[facility] Start: 10-27-2023 End: 10-27-2023 Off-Site Sara HamlinSidra Eatondinesh [facility] Start: 09-28-2023 Non-patient / Non-visit [facility] Work Phone: Start: 09-28-2023 Non-patient / Non-visit [facility] Work Phone: Start: 09-28-2023 End: 09-28-2023 ambulatory Sara Bob Facility:[id number] Start: 09-27-2023 Non-patient / Non-visit [facility] Work Phone: Start: 09-06-2023 End: 09-06-2023 ambulatory [facility] Work Phone: Start: 09-06-2023 End: 09-06-2023 Patient encounter procedure [facility] Work Phone: Start: 07-13-2023 End: 07-13-2023 Patient encounter procedure [facility] Work Phone: Start: 06-30-2023 End: 06-30-2023 Office outpatient visit 25 minutes Jaleesa Conn MD Work Phone: [facility] Comment on above: Essential hypertensi on, benign (Primary Dx); ASCVD (arteriosclerotic cardiovascular disease); Mixed hyperlipidemia; Type 2 diabetes mellitus without complication, with long-term current use of insulin (Multi); Former smoker; BMI 32.0-32.9,adult; Obstructive sleep apnea syndrome; Urinary retention Start: 06-30-2023 End: 06-30-2023 ambulatory [facility] Start: 06-29-2023 Non-patient / Non-visit [facility] Work Phone: Start: 06-24-2023 End: 06-24-2023 ambulatory [facility] Work Phone: Start: 06-24-2023 End: 06-24-2023 Patient encounter procedure [facility] Work Phone: Start: 06-22-2023 Non-patient / Non-visit [facility] Work Phone: Start: 06-08-2023 ambulatory ANGELI GUY Facili ty:[facility] Start: 05-24-2023 End: 05-24-2023 ambulatory [facility] Work Phone: Start: 05-24-2023 End: 05-24-2023 Patient encounter procedure [facility] Work Phone: Start: 05-20-2023 Non-patient / Non-visit [facility] Work Phone: Start: 05-10-2023 End: 06-22-2023 Pre-admission assessment Renato MCCABE [facility] Start: 05-05-2023 ambulatory ANGELI GUY Facili ty:[facility] Start: 05-04-2023 Non-patient / Non-visit [facility] Work Phone: Start: 04-28-2023 End: 04-28-2023 ambulatory Sara Eatone Facility:[facility] Start: 04-28-2023 End: 04-28-2023 Patient encounter procedure Sara Bob [facility] Start: 03-26-2023 End: 03-26-2023 ambulatory Sara M. Lue Facility:[facility] Start: 03-26-2023 End: 03-26-2023 Patient encounter procedure Sara Bob [facility] Start: 03-25-2023 End: 03-25-2023 ambulatory Sara Bob Facility:[id number] Start: 03-17-2023 End: 03-17-2023 ambulatory Dion Griggs Other [employer] Other Start: 03-17-2023 Office outpatient vi sit 25 minutes Dion Griggs [facility] Start: 03-17-2023 End: 03-17-2023 Patient encounter procedure [facility]- Start: 03-16-2023 End: 03-16-2023 ambulatory Tondra Cristobal Other [employer] Other Start: 03-16-2023 Telephone encounter Tondra Cristobal [facility] Start: 02-02-2023 End: 02-02-2023 ambulatory ANGELI GUY Facility:[facility] Start: 02-02-2023 End: 02-02-2023 Patient encounter procedure ANGELI GUY [facility] Start: 12-15-2022 (DM) Diabetes Tondra Cristobal [facility] Start: 12-15-2022 End: 12-16-2022 ambulatory Tondra K Danikaus [employer] Other Start: 12-02-2022 End: 12-02-2022 ambulatory Dion Griggs Other [employer] Other Start: 12-02-2022 Nursing evaluation o f patient and report Dion Griggs [facility] Start: 09-02-2022 End: 09-02-2022 ambulatory Dion Griggs Other [employer] Other Start: 09-02-2022 Patient encounter procedure Dion Griggs [facility] Start: 08-20-2022 End: 08-20-2022 ambulatory Dion Griggs Other [employer] Other Start: 08-20-2022 Office outpatient vi sit 15 minutes Dion Griggs [facility] Start: 08-04-2022 End: 08-04-2022 Patient encounter procedure ANGELI GUY [facility] Start: 07-23-2022 Office outpatient vi sit 10 minutes Dion Griggs Work Phone: [facility] 250 DO Work Phone: Start: 06-30-2022 Telephone encounter Dion Gabriel [facility] Start: 06-30-2022 Office outpatient vi sit 25 minutes Dion Griggs Work Phone: [facility] 250 DO Work Phone: Start: 06-30-2022 End: 06-30-2022 ambulatory Laz[facility] [employer] Other Start: 06-15-2022 (DM) Diabetes Tondra Mapus [facility] Start: 06-15-2022 End: 06-15-2022 ambulatory Tondra Mapus Other [facility] [employer] Other Start: 06-10-2022 End: 06-11-2022 ambulatory TONDRA MAPUS Facility: Start: 05-04-2022 Rx Renewal Dion szymanski Work Phone: [employer] 250 DO Work Phone: Start: 04-27-2022 End: 04-27-2022 ambulatory Tondra Mapus Other [facility] [employer] Other Start: 04-27-2022 Telephone encounter Tondra Mapus [facility] Start: 02-25-2022 End: 02-25-2022 Patient encounter procedure ANGELI GUY [facility] Start: 02-06-2022 End: 02-07-[address] KAILEE Valente Facility: Start: 09-03-2021 Adult health examination Noam radha Gabriel Other [employer] Other Start: 09-01-2021 Pre-procedure evalua tion check Dion Griggs Other [employer] Other Start: 08-26-2021 End: 08-26-2021 Patient encounter procedure Kailee Mckinney Jr. [facility] Start: 06-23-2021 End: 06-23-2021 ambulatory Tondra Mapus Other [employer] Other Start: 06-23-2021 Telephone encounter Tondra Mapus [facility] Start: 06-20-2021 End: 06-21-2021 ambulatory TONDRA MAPUS Facility: Start: 03-24-2021 Rx Renewal Dion szymanski Work Phone: [facility] 250 DO Work Phone: Start: 03-18-2021 End: 03-18-2021 ambulatory Tondra Mapus Other [employer] Other Start: 03-18-2021 Telephone encounter Tondra Mapus [facility] Start: 01-06-2021 Office outpatient vi sit 25 minutes Dion Griggs Work Phone: [facility] 250 DO Work Phone: Start: 03-19-2020 End: 03-20-2020 Evaluation and management of inpatient CACHORRO ROBLERO Facility:[facility] Start: 03-19-2020 Patient encounter procedure UNKNOWN PROVIDER Facility:[facility] Procedures Date Procedure Procedure Detail Performing Clinician Start: 06-29-2023 Bacteria identified in Urine by Culture Start: 05-24-2023 Blood Culture 1 Start: 05-24-2023 Blood Culture 2 Start: 05-20-2023 Bacteria identified in Urine by Culture Start: 05-20-2023 Blood Culture 1 Start: 05-20-2023 Blood Culture 2 Start: 02-06-2022 PSA screening YNES BRAN Comment on above: Performed By: #### P SAD #### [facility] [address] [place] [address] Dr. Kim Roper Start: 05-01-2020 Transurethral prostatectomy [...] Care Activity Detail Author Start: 03-19-2030 DTaP/Tdap/Td Vaccines (3 - Td or Tdap) DTaP/Tdap/Td Vaccines (3 - Td or Tdap) [facility] Start: 01-05-2025 End: 01-05-2025 Patient encounter procedure 01/05/2025 1:10 PM EST Office Visit [place] [id number] [id number] Jaleesa Conn MD [address] [facility] [address], [address] [address] [facility] Start: 09-14-2024 Glaucoma screening Diabetes: Retinopathy Screening [facility] Start: 09-06-2024 Medicare Annual Wellness Visit Medicare Annual Wellness Visit (AWV) [facility] Start: 04-12-2024 End: 04-12-2024 Patient encounter procedure 04/12/2024 11:20 AM EST Office Visit [facility] [address] [phone] Jaleesa Conn MD [address] [facility] [address], [address] [phone] [facility] Start: 10-31-2023 COVID-19 Vaccine ( season) COVID-19 Vaccine ( season) [facility] Start: 10-31-2023 Influenza vaccination Influenza Vaccine (Season Ended) [facility] Start: 06-30-2023 FUV, Provider: Jaleesa Conn, Status: Pen, Time: 11:00 AM FUV, Provider: Jaleesa Conn, Status: Pen, Time: 11:00 AM [place] [id number] DO Work Phone: Start: 05-20-2023 Blood Culture 1 Blood Culture 1 [facility] Start: 05-20-2023 Blood Culture 2 Blood Culture 2 [facility] Start: 10-30-2022 COVID-19 Vaccine ( season) COVID-19 Vaccine ( season) [facility] Start: 08-15-2022 Glaucoma screening Diabetes: Retinopathy Screening [facility] Start: 07-23-2022 NURSEVST, Provider: EMILY BERGMAN ENGINEERING MODEL MAKER 1,[id number], Status: Pen, Time: 11:00 AM NURSEVST, Provider: EMILY BERGMAN ENGINEERING MODEL MAKER 1,[id number], Status: Pen, Time: 11:00 AM [facility] 250 DO Work Phone: Start: 06-30-2022 FUV, Provider: Jaleesa Conn, Status: Pen, Time: 11:20 AM FUV, Provider: Jaleesa Conn, Status: Pen, Time: 11:20 AM [facility] 250 DO Work Phone: Start: 07-01-2021 FUV, Provider: Jaleesa Conn, Status: Pen, Time: 1:00 PM FUV, Provider: Jaleesa Conn, Status: Pen, Time: 1:00 PM [facility] 250 DO Work Phone: Start: 07-15-2019 RSV High Risk: (Elderly (60+) or Population) (1 - 1-dose 75+ series) RSV High Risk: (Elderly (60+) or Population) (1 - 1-dose 75+ series) [facility] Start: 2004 RSV patients and/or patients aged 60+ years (1 - 1-dose 60+ series) RSV patients and/or patients aged 60+ years (1 - 1-dose 60+ series) [facility] Start: 1994 Zoster Vaccines (1 of 2) Zoster Vaccines (1 of 2) [facility] Start: 07-15-1963 Urine screening for protein Diabetes: Urine Protein Screening [facility] Start: 1962 Hepatitis C screening Hepatitis C Screening [facility] Start: 1954 Diabetic foot examination Diabetes: Foot Exam [facility] Start: 1944 Hemoglobin A1c measurement Diabetes: Hemoglobin A1C [facility] Start: 1944 Lipid panel Lipid Panel [facility] Start: 1944 Medicare Annual Wellness Visit Medicare Annual Wellness Visit (AWV) [facility] Start: 1944 Urine screening for protein Diabetes: Urine Protein Screening [facility] Comprehensive metabo lic 2000 panel - Serum or Plasma [facility] Patient Education [facility] Work Phone: [facility] Immunizations Immunization Date Immunization Notes Care Provider Mark manzanares 12-13-2023 influenza, high dose seasonal, preservative-free [facility] 12-02-2022 influenza, high dose seasonal, preservative-free Dion Griggs Other [employer] Other 12-02-2022 influenza virus vaccine, unspecified formulation [facility] 12-10-2021 Fluad Quadrivalent 0 .5 ML Intramuscular Prefilled Syringe Dion Dinesh Griggs Work Phone: [facility] 250 DO Work Phone: 12-10-2021 influenza virus vaccine, split virus (incl. purified surface antigen) Dion Griggs Other [employer] Other 12-10-2021 influenza virus vaccine, unspecified formulation ANGELI GUY [facility] 12-10-2021 influenza, high dose seasonal, preservative-free Dion Gabriel Other [employer] Other 12-06-2020 influenza virus vaccine, unspecified formulation ANGELI BROOKS [facility] 12-06-2020 influenza, high dose seasonal, preservative-free Dion Dinesh Gabriel Work Phone: [facility] Comment on above: Series: 12-05-2020 influenza virus vaccine, split virus (incl. purified surface antigen) Dion Griggs Other [employer] Other 12-05-2020 influenza virus vaccine, unspecified formulation [facility] 05-06-2020 Josephine COVID-19 Vaccine 0.5 ML Intramuscular Suspension Dion Griggs Work Phone: [facility] Comment on above: Series: 03-19-2020 diphtheria, tetanus toxoids and pertussis vaccine Dion Griggs Work Phone: [facility] 03-19-2020 tetanus toxoid, redu noman diphtheria toxoid, and acellular pertussis vaccine, adsorbed Jaleesa Conn MD Work Phone: [facility] Work Phone: 12-05-2019 influenza virus vaccine, split virus (incl. purified surface antigen) Dion Griggs Other [facility] [employer] Other 12-05-2019 influenza virus vaccine, unspecified formulation [facility] 11-30-2019 influenza virus vaccine, unspecified formulation ANGELI GUY [facility] 11-30-2019 influenza, high dose seasonal, preservative-free Dion E Gabriel Work Phone: [facility] [employer] DO Work Phone: 10-31-2019 influenza virus vaccine, unspecified formulation Dion Griggs Work Phone: [facility] 11-23-2018 influenza virus vaccine, split virus (incl. purified surface antigen) Dion Griggs Other [facility] [employer] Other 11-23-2018 influenza virus vaccine, unspecified formulation ANGELI BROOKS [facility] 11-23-2018 influenza, injectabl e, quadrivalent, preservative free Dion E Ball Work Phone: [facility] [employer] 250 DO Work Phone: 10-30-2018 influenza, high dose seasonal, preservative-free Dion E Ball Work Phone: [facility] [employer] 250 DO Work Phone: 04-01-2015 pneumococcal conjuga te vaccine, 13 valent Dion E Gabriel Work Phone: [facility] 03-01-2015 pneumococcal polysaccharide vaccine, 23 valent Dion Griggs Work Phone: [facility] Comment on above: Series: 02-27-2015 pneumococcal conjuga te vaccine, 13 valent Dion Griggs Other [facility] 02-27-2015 pneumococcal Conjuga te, unspecified formulation; 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: [Need for prophylactic vaccination against Streptococcus pneumoniae (pneumococcus)] Dion Griggs Other [facility] [employer] Other 03-01-2010 influenza virus vaccine, unspecified formulation Dion Griggs Work Phone: [facility] [employer] 250 DO Work Phone: 03-01-2006 pneumococcal polysaccharide vaccine, 23 valent Dion Griggs Work Phone: [facility] [employer] 250 DO Work Phone: influenza virus vaccine, unspecified formulation Dion Griggs Work Phone: [facility] [employer] 250 DO Work Phone: Comment on above: 2009 Payers Date Payer Category Payer Medicare supplementa l policy (as second payer) [facility] [id number] 2023 Unknown 2017 Self-pay [id number] 2017 Unknown [id number] 2009 Medicare [id number] 1959 Medicare [id number] 1959 Unknown [id number] 1944 Unknown [id number] 2.16.840.1.327348.3.579. 2.732 1944 Unknown [id number] 2.16.840.1.394718.3.579. 2.732 1944 Unknown [id number] 2.16.840.1.298731.3.579. 2.593 1944 Unknown [id number] 2.16.840.1.341097.3.579. 2.593 1944 Unknown [id number] 2.16.840.1.894901.3.579. 2.593 1944 Unknown [id number] 2.16.840.1.880585.3.579. 2.356 1944 Unknown [id number] 2.16.840.1.246108.3.579. 2.727 1944 Unknown [id number] 2.16.840.1.256579.3.579. 2.727 1944 Unknown [id number] 2.16.840.1.497825.3.579. 2.727 1944 Unknown [id number] 2.16.840.1.082561.3.579. 2.727 1944 Unknown [id number] 2.16.840.1.708351.3.579. 2.727 1944 Unknown [id number] 2.16.840.1.653865.3.579. 2.727 1944 Unknown [id number] 2.16.840.1.780599.3.579. 2.727 1944 Unknown [id number] 2.16.840.1.699370.3.579. 2.727 1944 Unknown [id number] 2.16.840.1.655330.3.579. 2.727 1944 Unknown [id number] 2.16.840.1.351409.3.579. 2.1244 1944 Unknown [id number] 2.16.840.1.564224.3.579. 2.1244 Unknown [id number] 2.16.840.1.576797.3.579. 2.531 Social History Date Type Detail Facility Start: 06-30-2023 End: 04-12-2024 No illicit drug use No illicit drug use -[facility] 250 DO Work Phone: Comment on above: 3 cups coffee daily, occasionl diet soda; 1 beer a month; Start: 06-30-2023 End: 04-12-2024 Sex Assigned At [facility] [employer] Other Start: 08-26-2021 End: 09-07-2024 Tobacco smoking status Ex-smoker (finding) [facility] Start: 04-28-2023 Tobacco smoking status Never [facility] Start: 1945 Sex Assigned At Male [facility] Start: 03-01-1972 History of tobacco use Current smoke r [facility] Work Phone: Start: 03-01-1972 History of tobacco use Cigarette Smo ker [facility] Work Phone: Start: 06-30-2023 Tobacco use and exposure Smokeless tobacco non-user [facility] Work Phone: Start: 06-30-2023 End: 04-12-2024 Alcoholic beverage intake Current drinker of alcohol (finding) [facility] Work Phone: Start: 06-30-2023 Alcohol Comment rarely [facility] Work Phone: Start: 1945 Sex assigned at Not on file [facility] Work Phone: Start: 06-20-2023 End: 04-12-2024 Exposure to SARS-CoV-2 (event) Not sure [facility] Start: 03-06-2024 End: 04-04-2024 Sex Male (finding) [facility] Medical Equipment Procedure Code Equipment Code Equipment Origin al Text Equipment Identifier Dates Start: 04-23-2014 Functional Status Date Assessment Result Facility 11-09-2023 Functional Status N/A [facility] 04-28-2023 Functional Status N/A [facility] 02-02-2023 Functional Status N/A [facility] 08-04-2022 Functional Status N/A [facility] 02-25-2022 Functional Status N/A [facility] 08-26-2021 Functional Status N/A [facility] Clinical Notes 08-26-2021 to 04-12-2024 Jaleesa Conn MD - 04/12/2024 11:20 AM ESTPatient Instructions Note Date & Type Note Facility 04-12-2024 History of Present illness Narrative Subjective Joseph Escalona is a 78 y.o. male Chief Complaint Follow-up HPI Patient is in the office for follow-up for the problems noted below accompanied by his . Recent A1c was 6.2 on target. He reports no palpitations dyspnea chest pain syncope or near syncope and no falls. He is compliant with medical therapy and CPAP machine and continues to have to have self catheterization 4 times daily. He continue to follow with urology. His examination was only remarkable for class I obesity. For cost containment reason he will be switched from rosuvastatin to atorvastatin. ASSESSMENT AND PLAN: 1. Essential hypertension currently controlled on present medical therapy with no changes needed. Recommended continuous salt restriction, weight loss and exercise. 2. Hyperlipidemia, currently on rosuvastatin and for cost containment purposes he will be switched to rosuvastatin 40 mg daily 3. Type II diabetes, managed by diabetes clinic at [facility], A1c 6.2 recently 4. Class I obesity. Encouraged more weight control with diet and exercise. 5. Coronary artery disease with 50% LAD stenosis in 2009 cardiac catheterization, nuclear stress test 2020 was normal risk factor have been aggressively targeted 6. 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 Obstructive sleep apnea compliant with CPAP machine. Review of Systems All other systems reviewed and are negative. Vitals: 04/12/24 1148 BP: 124/68 BP Location: Left arm Patient Position: Sitting Pulse: 80 Weight: 89.5 kg (197 lb 6.4 oz) Height: 1.676 m (5' 6 ) Objective [...] 1 capsule by mouth once daily., Disp: 90 capsule, Rfl: 3 aspirin 81 mg EC tablet, Take 1 [...] mouth 2 times daily (morning and late afternoon)., Disp: , Rfl: atorvastatin (Lipitor) 40 mg tablet, Take 1 tablet (40 mg) by mouth once daily., Disp: 90 tablet, Rfl: 3 Assessment/Plan 1. ASCVD (arteriosclerotic cardiovascular disease) Follow Up In Cardiology Follow Up In Cardiology 2. Essential hypertension, benign 3. Mixed hyperlipidemia atorvastatin (Lipitor) 40 mg tablet 4. Type 2 diabetes mellitus without complication, with long-term current use of insulin (Multi) 5. Obstructive sleep apnea syndrome 6. BMI 31.0-31.9,adult 7. Former smoker Scribe Attestation By signing my name below, I, Qi Colon RN , Scribe attest that this documentation has [...] discussion and plan. documented in this encounter [facility] Work Phone: 04-12-2024 Instructions Qi Tinajero RN - 04/12/2024 11:20 AM EST Please bring all medicines, vitamins, and herbal supplements with you when you come to the office. Prescriptions will not be filled unless you are compliant with your follow up appointments or have a follow up appointment scheduled as per instruction of your physician. Refills should be requested at the time of your visit. BMI was above normal measurement. Current weight: 89.5 kg (197 lb 6.4 oz) Weight change since last visit (-) denotes wt loss -2.6 lbs Weight loss needed to achieve BMI 25: 42.8 Lbs Weight loss needed to achieve BMI 30: 11.9 Lbs Provided instructions on dietary changes Provided instructions on exercise. documented in this encounter [facility] Work Phone: 03-06-2024 Evaluation note Diagnosis Onset Date Resolution Anemia acute March 06 1:23pm Arteriosclerotic heart disease (ASHD) acute March 06 1:23pm Benign prostatic hyperplasia with lower urinary tract symptoms acute March 062024 1:23pm Elevated cholesterol acute Izaiah ventura2024 1:23pm Obstructive sleep apnea acute J anuary 2024 1:23pm Primary hypertension acute 2024 1:23pm Type 2 diabetes mellitus with diabetic polyneuropathy acute March 06 1:23pm Type 2 diabetes mellitus with hyperglycemia acute March 06, 2024 1:23pm BMI 31.0-31.9,adult acute u ventura2024 1:43pm Dietary counseling and surveillance acute April 04 1:43pm Pain in right foot acute Februa ry 2024 1:43pm Primary hypertension acute Febr uary 2024 1:43pm Vitamin B 12 deficiency acute F ebruary 2024 1:43pm Hyperlipidemia LDL goal <100 deleted April 04 1:43pm Type 2 diabetes mellitus deleted April 04, 2024 1:43pm [facility] Work Phone: 1(139) 817-449810-30-2024 Evaluation note* Diagnosis Onset Date Resolution Status Admit Date BMI 31.0-31.9,adult acute Octob er 2023 1:37pm Dietary counseling and surveillance acute December 28 1:37pm Pain in right foot acute Octobe r 2023 1:37pm Primary hypertension acute Octo vicki 2023 1:37pm Vitamin B 12 deficiency acute O ctober 2023 1:37pm Hyperlipidemia LDL goal <100 deleted December 29, 2023 1:37pm Type 2 diabetes mellitus deleted December 29, 2023 1:37pm Pain in right foot acute Novemb er 2023 9:11am Primary hypertension acute Nove mber 2023 9:11am Primary osteoarthritis of ri ght foot acute December 30 9:11am Type 2 diabetes mellitus wit h hyperglycemia acute December 30 9:11am Anemia acute March 06 025 1:23pm Arteriosclerotic heart disea se (ASHD) acute March 06 1:23pm Benign prostatic hyperplasia with lower urinary tract symptoms acute March 06 1:23pm Elevated cholesterol acute 2024 1:23pm Obstructive sleep apnea acute J anuary 2024 1:23pm Primary hypertension acute Izaiah ventura2024 1:23pm Type 2 diabetes mellitus wit h diabetic polyneuropathy acute March 06, 2024 1:23pm Type 2 diabetes mellitus wit h hyperglycemia acute March 06 1:23pm [facility] Work Phone: 1(177) 672-449909-10-2024 Hospital Discharge instructions Patient Education 11/09/2023 09:43:53 [...] in 6-8 weeks. Will call for results [facility] 09-10-2024 NotePatient Education Cystoscopy with Stent Removal ? Voiding after the procedure: there may be some pain, burning, urgency, frequency and blood tingedurine following the procedure. These symptoms usually resolve [...] if you have a fever over 100 degrees.[facility] 06-30-2023 History of Present illness Narrative* Jaleesa Conn MD - 06/30/2023 11:00 AM EDT Subjective Joseph Escalona is a 77 y.o. [...] examination is only remarkable for class I obesity.His medical therapy was reviewed and lab data since her last visit were discussed with the patient. ASSESSMENT AND PLAN: 1. Hypertension currently controlled on present medical therapy with no changes needed. Recommendedcontinuous salt restriction, weight loss and exercise. 2. Hyperlipidemia, on statin therapy, under control. LDL cholesterol around 40 mg/dL. 3. Diabetes, managed by diabetes clinic at [facility] 4. Class I obesity. Encouraged more weight control with diet and exercise. 5. Coronary artery disease with 50% LAD stenosis in 2009 cardiac catheterization, nuclear stress test 2020 was normal risk factor have been aggressively targeted 6. 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 Obstructive sleep apnea compliant with CPAP machine. Jaleesa Conn MD, [facility] Review of Systems All other systems [...] (3 mL) pen, Inject 31 Units under theskin. As directed., Disp: , Rfl: metFORMIN (Glucophage) 1,000 mg tablet, Take 1 tablet (1,000 mg) by mouth 2 times a day with meals., Disp: , Rfl: omega 0-zrv-ced-fish oil (Fish OiL) 1,000 mg (120 mg-180 mg) capsule, Take 2 capsules (2,000 mg) bymouth every other day., Disp: , Rfl: simvastatin [...] my direction and personally dictated by me. Ihave reviewed the chart and agree that the record accurately reflects my personal performance of the history, physical exam, discussion and plan. documented in this [facility] Work Phone: 1(429) 952-646505-01-2024 Instructions* Patient Instructions* Celina Womack LPN - 06/30/2023 11:00 AM [...] to Increase physical activity. documented in this [facility] Work Phone: 1(587) 130-606902-28-2024 Hospital Discharge instructions Patient Education 04/28/2023 10:39:28 [...] including vitamins, herbs, eye drops, creams, and txiv-uuo-bbzvahk medicines. ?Whether you are or may be [...] bladder will be filled with warm, germ-free (sterile)water. Pressure measurements will be taken: ?As your [...] compresses) may relieve any discomfort near yoururethra. What do the results mean? Talk with [...] provider. Document Revised: 10/29/2021 Document Reviewed: 09/20/2020 [employer] Patient Education 2022 [employer]. Follow Up Care 03/26/2023 11:35:17 With:Paulino GAVIN, RUBEN Mendez, URO Address: [address] [place] [phone] When: Unknown Comments:sched [employer] [facility] 01-17-2024 Evaluation note* Encounter Date Diagnosis Assessment Notes Treatment Notes Treatment Clinical Notes Mar, Arteriosclerotic heart disease (ASHD) (ICD-10 - I25.10) LHC: 50% - 2009 This patient is stable without [...] A1C are consistently < 7% f/u diabetic HEMODIALYSIS RN Mar, Obstructive sleep apnea (ICD-10 - G47.33) This patient is aware of the benefits associated with GEOVANNA: With continued use, the patient reduces the risk for AL, CVA, HTN, cardiac dysrhythmias and sudden cardiac [...] E11.42) Inspect feet daily for cuts and calluses.Recommend diabetic shoes and inserts to prevent callus [...] 3-5 times weekly. Mar, Body mass index [BMI ] 33.0-33.9, adult (ICD-10 - Z68.33) Mar, retirement (current) use of insulin (ICD-10 - Z79.4) [employer] Other 01-16-2024 Evaluation note* Encounter Date Diagnosis Assessment Notes Treatment Notes Treatment Clinical Notes Mar, Type 2 diabetes mellitus with hyperglycemia (ICD-10 - E11.65) [employer] Other 12-05-2023 Hospital Discharge instructions Patient Education [...] including vitamins, herbs, eye drops, creams, and irzx-sab-cjamtym medicines. Any problems you or family members [...] provider tells you to take them. Taking xawk-jum-icqmnxh medicines, vitamins, herbs, and supplements. Tests You [...] Follow these instructions at home: Medicines Take hpzw-vit-igzpifx and prescription medicines only as told by [...] provider. Document Revised: 10/29/2021 Document Reviewed: 09/27/2020 [employer] Patient Education 2022 [employer]. Follow Up Care 08/04/2022 10:55:35 With:BROOKS ANTHONYANGELI, URL Address: [address] [place] [address] [phone] When: Unknown Comments:sched cysto/TRUS [facility] 12-05-2023 NoteUrology Cystoscopy Cystoscopy is a procedure [...] including vitamins, herbs, eye drops, creams, and htnt-ytw-qqsnesd medicines. ? Any problems you or family [...] tells you to take them. ? Taking nizb-ruy-xndfive medicines, vitamins, herbs, and supplements. Tests You [...] these instructions at home: Medicines ? Take kgxk-ljm-mtkbycs and prescription medicines only as told by [...] or the department th (more content not included)...[facility] 12-15-2022 Evaluation note* Encounter Date Diagnosis [...] f/u with pcp for further evaluation. Nov, retirement current use of insulin (ICD-10 - Z79.4) Nov, Vitamin B 12 deficiency (ICD-10 - E53.8) 05/2022 vit b 12 281 at target Nov, BMI 33.0-33.9,adult (ICD-10 - Z68.33) Setting weight-loss goals material was published [employer] Other 06-22-2023 Evaluation note* Encounter Date Diagnosis Assessment Notes Treatment Notes Treatment Clinical Notes Jul, Acute bacterial conjunctivitis of right eye (ICD-10 - H10.31) Wipe w/ warm wash cloth in morning Artificial tears Frequent hand washing Notify office or see government affairs specialist if develop pain, blurred vision or fails to improve Jul, Viral URI (ICD-10 - J06.9) Instructed to use Robitussin or Mucinex for cough, saline or Flonase NS for congestion, Tylenol for pain and fever. Jul, Type 2 diabetes mellitus with hyperglycemia (ICD-10 - E11.65) Acute infection may cause BS to increase temporarily. No adjustment in treatment necessary [employer] Other 06-06-2023 Hospital Discharge instructions Patient Education [...] urethra. Follow these instructions at home: Take dqyd-pae-sngmbnq and prescription medicines only as told by [...] provider. Document Revised: 09/03/2021 Document Reviewed: 09/03/2021 [employer] Patient Education 2022 [employer] Follow Up Care 02/25/2022 10:18:55 With:ANGELI GUY PA-C, URL Address: When:1 year [facility] Evaluation note* Encounter Date Diagnosis Assessment Notes Treatment Notes Treatment Clinical Notes June, Arteriosclerotic hea rt disease (ASHD) (ICD-10 - I25.10) LHC: 50% - 2009 [employer] Other 04-17-2023 Evaluation note* Encounter Date Diagnosis [...] f/u with pcp for further recommendation. May, retirement current use of insulin (ICD-10 - Z79.4) May, Vitamin B 12 deficiency (ICD-10 - E53.8) 05/2022 vit b 12 281 at target May, BMI 33.0-33.9,adult (ICD-10 - Z68.33) Setting weight-loss goals material was published [employer] Other 12-28-2022 Hospital Discharge instructions Patient Education [...] including vitamins, herbs, eye drops, creams, and thrq-ijp-nxciblz medicines. ?Whether you are or may be [...] 12/13/2007 Document Revised: 06/06/2019 Document Reviewed: 12/20/2017 [employer] Patient Education 2019 [employer]. Follow Up Care 08/26/2021 10:57:16 With:ANGELI GUY PA-C, URL Address: [address] [place] [place] [address] When: Unknown [facility] 06-28-2022 Hospital Discharge instructions Patient Education 08/26/2021 [...] Follow these instructions at home: Medicines Take rlok-upk-nmtazhv and prescription medicines only as told by [...] or the blood stops without treatment. Take wgmf-lsu-bhaeamh and prescription medicines only as told by your health care provider. Drink enough fluid to keep your urine clear or pale yellow. This information is not intended to replace advice given to you by your health care provider. Make sure you discuss any questions you have with your health care provider. Document Released: 02/15/2006 Document Revised: 07/12/2019 Document Reviewed: 03/20/2017 [employer] Patient Education 2020 [employer] Follow Up Care 02/25/2021 11:22:41 With:Hank Robbins MD, Kailee Szymanski, URO Address: [facility] [address], [place] [phone] When:02/25/2022 [facility] chiuu complaint+Reason for visit Narrative* Chief Complaint meter show pt. how to use the Bj 3 Wellness Reason for Visit Dietary counseling a nd surveillance Primary hypertension Vitamin B 12 deficiency Anemia Arteriosclerotic heart disease (ASHD) Benign prostatic hyperplasia with lower urinary tract symptoms Elevated cholesterol Obstructive sleep apnea Primary hypertension Type 2 diabetes mellitus with diabetic polyneuropathy Type 2 diabetes mellitus with hyperglycemia Medicare annual wellness visit, subsequent [facility] Work Phone: Chiez complaint+Reason for visit Narrative* Chief Complaint flu shot bj reader Reason for Visit BMI 31.0-31.9,adult Dietary counseling and surveillance Primary hypertension Vitamin B 12 deficiency [facility] Work Phone: Evaluation + Plan note Future Appointments Appointment Date:03/10/2022 10:15:00 AM Scheduled Provider:Kailee Mckinney Jr., MD [facility] Appointment Type:URO Office Visit Diagnostic Tests Pending * PSA Total 08/26/21 [facility] evaluation + Plan note Future Appointments Appointment Date:08/04/2022 10:00:00 AM Scheduled Provider:ANGELI GUY PA-C Location:[facility] Appointment Type:URO Office Visit [facility] evaluation + Plan note Future Appointments Appointment Date:02/03/2023 01:00:00 PM Scheduled Provider:ANGELI GUY PA-C Location:[facility] Appointment Type:URO Office Visit [facility] evaluation + Plan note Future Appointments Appointment Date:04/28/2023 10:00:00 AM Scheduled Provider:Sara Bob MD Location:[facility] Appointment Type:URO Office Visit [facility] Evaluation noteNo InformationNort [employer] Other Evaluation note[employer] Other Evaluation noteNo assessment information available [facility] Work Phone: Evaluation note* Diagnosis Onset Date Resolution Status Bilateral nephrolithiasis ac atka Urinary retention with incomplete bladder emptying acute Pyelonephritis of right kidney noneactive Dietary counseling and surveillance acute Hyperlipidemia LDL goal <100 acute Primary hypertension acute Type 2 diabetes mellitus acu te Vitamin B 12 deficiency acut e [facility] Work Phone: evaluation note* Diagnosis Essential hypertension, benign- Primary ASCVD (arteriosclerotic cardiovascular disease) Unspecified cardiovascular disease Mixed hyperlipidemia Type 2 diabetes mellitus without complication, with long-term current use of insulin (Multi) Former smoker Personal history of tobacco use, presenting hazards to health BMI 32.0-32.9,adult Obstructive sleep apnea syndrome Obstructive sleep apnea (adult) (pediatric) Urinary retention Unspecified retention of urine documented in this encounter [facility] Work Phone: Evaluation note* Diagnosis Onset [...] annual wellness visit, subsequent noneactive [facility] Work Phone: Evaluation note* Diagnosis Onset Date Resolution Status BMI 31.0-31.9,adult acute Dietary counseling and surveillance acute Primary hypertension acute Vitamin B 12 deficiency acut e [facility] Work Phone: Evaluation note* Diagnosis Onset Date Resolution Status BMI 31.0-31.9,adult acute Dietary counseling and surveillance acute Pain in right foot acute Primary hypertension acute Vitamin B 12 deficiency acut e Pain in right foot acute Primary hypertension acute Primary osteoarthritis of right foot acute Type 2 diabetes mellitus with hyperglycemia acute [facility] Work Phone: Evaluation note* Diagnosis ASCVD (arteriosclerotic cardiovascular disease)- Primary Unspecified cardiovascular disease Essential hypertension, benign Mixed hyperlipidemia Type 2 diabetes mellitus without complication, with long-term current use of insulin (Multi) Obstructive sleep apnea syndrome Obstructive sleep apnea (adult) (pediatric) BMI 31.0-31.9,adult Former smoker Personal history of tobacco use, presenting hazards to [facility] Obesity, Class I, BMI 30-34.9 documented in this encounter [facility] Work Phone: Evaluation note* Diagnosis Onset Date Resolution Status Admit Date Arteriosclerotic heart disea se (ASHD) acute September 07, 2024 11:19am Benign prostatic hyperplasia with lower urinary tract symptoms acute September 07, 2024 11:19am Elevated cholesterol acute September 07, 2024 11:19am Obstructive sleep apnea acute J 2024 11:19am Primary hypertension acute September 07, 2024 11:19am Type 2 diabetes mellitus wit h diabetic polyneuropathy acute August 11:19am Type 2 diabetes mellitus wit h hyperglycemia acute September 07, 2024 11:19am Medicare annual wellness vis it, subsequent noneactive September 07, 2024 11:19am [facility] Work Phone: History general Narrative - Reported* Type Description Date Medical History hypertension Medical History hyperlipidemia Medical History DM2 Medical History obesity Medical History CAD- 50% occlusion LAD-Sees Dr Keila oro Surgical History appendectomy Surgical History RT knee surgery Surgical History arthroscopic knee surgery, left 01/17 Surgical History Cystoscopy 05/01/2020 Hospitalization History see above surgery [employer] Other [facility] general Narrative - Reported* Type Description Date [...] EGD 1997 Hospitalization History see above surgery [facility] [employer] Other History [facility] - [facility] [employer] Other Hospital course Narrative No data available for this section [facility] Discharge instructions No data available for this section [facility] Progress note No data available for this section [facility] reason for referral (narrative)* Consultation (Routine) - Authorized Specialty Diagnoses / Procedures Referred By Constantino su Referred To Contact Cardiology Diagnoses ASCVD (arteriosclerotic cardiovascular disease) Procedures Follow Up In Cardiology Jaleesa Conn MD [address] [facility], [address] [address] Jaleesa Conn MD [address] [facility], [address] [place] [address] Referral ID Status Reason Start Date Expiration Date V isits Requested Visits Authorized [id number] Authorized 06/30/2023 06/29/2024 1 1 [facility] Work Phone: Reason for referral (narrative)No reason for referral information [facility] Work Phone: Summary Purpose Family History Unknown Family Member Name Dates Details Family [...] mother Heart disease Unknown Unknown Advance Directives Advance Directive Response Recorded Date/ Time Advance Directives No August 04 8 10:15am Advance Directive Response Recorded Date/ Time Advance Directives No August 04 11:15am Chief Complaint * JOESPH ESCALONA is being seen for a 9 [...] managed by diabetes clinic at [facility] * 4. Obesity. Encouraged more weight control [...] managed by diabetes clinic at [facility] * 4. Obesity. Encouraged more weight control [...] managed by diabetes clinic at [facility], recent A1c 7.2 * 4. Obesity. Encouraged [...] not point out cardiac cause. * Jaleesa oCnn MD, FACC * JOSEPH ESCALONA is being [...] 2 diabetes mellitus Vitamin B 12 deficiency Chief Complaint flu shot Chief Complaint flu shot bj reader foot pain, gout Reason for Visit BMI 31.0-31.9,adult Dietary counseling and surveillance Pain in right foot Primary hypertension Vitamin B 12 deficiency Pain in right foot Primary hypertension Primary osteoarthritis of right foot Type 2 diabetes mellitus with hyperglycemia Chief Complaint Admit Date flu shot December 13, 2023 2 :27pm bj reader December 29, 2023 1 :37pm foot pain, gout December 31, 2023 9 :11am 6 month f/u March 06, 2024 1: 23pm Reason for Visit Admit Date BMI 31.0-31.9,adult December 29, 2023 1 :37pm Dietary counseling and surveillance Octo 2023 1:37pm Pain in right foot December 29, 2023 1 :37pm Primary hypertension December 29, 2023 1:37pm Vitamin B 12 deficiency December 28 1:37pm Hyperlipidemia LDL goal <100 November 1:37pm Type 2 diabetes mellitus December 28, 2 024 1:37pm Pain in right foot December 31, 2023 9 :11am Primary hypertension December 31, 2023 9:11am Primary osteoarthritis of right foot Nov emb2023 9:11am Type 2 diabetes mellitus with hyperglyce kirsten December 31, 2023 9:11am Anemia March 06, 2024 1: 23pm Arteriosclerotic heart disease (ASHD) Obed ingram 2024 1:23pm Benign prostatic hyperplasia with lower urinary tract symptoms March 06, 2024 1:23pm Elevated cholesterol March 06, 2024 1 :23pm Obstructive sleep apnea March 06 1:23pm Primary hypertension March 06, 2024 1 :23pm Type 2 diabetes mellitus with diabetic p olyneuropathy March 06, 2024 1:23pm Type 2 diabetes mellitus with hyperglyce kirsten March 06, 2024 1:23pm Chief Complaint Admit Date 6 month f/u March 06, 2024 1: 23pm 3 month-METER April 04, 2024 1 :43pm Reason for Visit Admit Date Anemia March 06, 2024 1: 23pm Arteriosclerotic heart disease (ASHD) Obed ingram 2024 1:23pm Benign prostatic hyperplasia with lower urinary tract symptoms March 06, 2024 1:23pm Elevated cholesterol March 06, 2024 1 :23pm Obstructive sleep apnea March 06 1:23pm Primary hypertension March 06, 2024 1 :23pm Type 2 diabetes mellitus with diabetic p olyneuropathy March 06, 2024 1:23pm Type 2 diabetes mellitus with hyperglyce kirsten March 06, 2024 1:23pm BMI 31.0-31.9,adult April 04, 2024 1 :43pm Dietary counseling and surveillance [facility] 2024 1:43pm Pain in right foot April 04, 2024 1 :43pm Primary hypertension April 04, 2024 1:43pm Vitamin B 12 deficiency April 04 1:43pm Hyperlipidemia LDL goal <100 April 1:43pm Type 2 diabetes mellitus April 04 025 1:43pm Chief Complaint Admit Date Wellness September 07, 2024 11:1 9am Reason for Visit Admit Date Arteriosclerotic heart disease (ASHD) Jacquie 2024 11:19am Benign prostatic hyperplasia with lower urinary tract symptoms September 07, 2024 11:19am Elevated cholesterol September 07, 2024 11: 19am Obstructive sleep apnea September 07, 2024 11:19am Primary hypertension September 07, 2024 11: 19am Type 2 diabetes mellitus with diabetic p olyneuropathy September 07, 2024 11:19am Type 2 diabetes mellitus with hyperglyce kirsten September 07, 2024 11:19am Medicare annual wellness visit, subseque nt September 07, 2024 11:19am Additional Source Comments (unrecognized sect ion and content) No Status Records FoundNo Status Records FoundNo Status Records FoundNo Status Records FoundNo Status Records FoundNo Status Records FoundNo Status Records FoundNo Status Records FoundNo Status Records Found INFORMATION SOURCE (unrecogn ized section and content) DATE CREATED AUTHOR 08/16/2019 [facility] DATE CREATED AUTHOR AUTHOR'S ORGANIZ ATION 03/26/2020 [facility] DATE CREATED AUTHOR AUTHOR'S ORGANIZ ATION 06/15/2022 [facility] DATE CREATED AUTHOR AUTHOR'S ORGANIZ ATION 07/01/2022 [facility] DATE CREATED AUTHOR AUTHOR'S ORGANIZ ATION 07/02/2022 [employer] DATE CREATED AUTHOR AUTHOR'S ORGANIZ ATION 04/15/2023 [facility] DATE CREATED AUTHOR AUTHOR'S ORGANIZ ATION 11/10/[address] [facility] DATE CREATED AUTHOR AUTHOR'S ORGANIZ ATION 04/14/2024 [facility] DATE CREATED AUTHOR AUTHOR'S ORGANIZ ATION 08/09/2024 [facility] REASON FOR VISIT (unrecogniz ed section and content) Reason Comments Annual Exam 1y Reason Comments Follow-up 9 month Specialty Diagnoses / Procedures Referred By Constantino t Referred To Contact Cardiology Diagnoses ASCVD (arteriosclerotic cardiovascular disease) Procedures Follow Up In Cardiology Jaleesa Conn MD [address] [place] [address], [address] [address] Phone: tel: fax: Jaleesa Conn MD [address] [facility], [address] [address] Phone: tel: fax: Referral ID Status Reason Start Date Expiration Date V isits Requested Visits Authorized [id number] Authorized 06/30/2023 06/29/2024 1 1 Care Team (unrecognized sect ion and content) Team Status: Active Member Role Status Dates Dion Griggs DO Primary Care Provider Active Team Status: Inactive Member Role Status Dates Dion Griggs DO Primary Care Provide r, Attending Provider Active Start: December 13, 2023 End: December 13, 2023 Team Status: Inactive Member Role Status Dates Dion Griggs DO Primary Care Provider Active Start: December 29, 2023 End: December 29, 2023 Ynes Jain APRN Attending Provider Active Start: December 29, 2023 End: December 29, 2023 Team Status: Inactive Member Role Status Lynn Griggs DO Primary Care Provide r, Attending Provider Active Start: December 31, 2023 End: December 31, 2023 Team Status: Inactive Member Role Status Lynn Griggs DO Primary Care Provide r, Attending Provider Active Start: March 06, 2024 End: March 06, 2024 Team Status: Active Member Role Status Lynn Griggs DO Primary Care Provide r, Attending Provider Active Start: May 04, 2023 Team Status: Active Member Role Status Lynn Griggs DO Primary Care Provide r, Attending Provider Active Start: May 20, 2023 Team Status: Inactive Member Role Status Lynn Griggs DO Primary Care Provide r, Attending Provider Active Start: May 24, 2023 End: May 24, 2023 Team Status: Active Member Role Status Lynn [...] March 17, 2023 End: March 17, 2023 Tool Filer Relationship Specialty Start Date End Date Dion Griggs DO PCP - General 08/15/19 Team Status: Active Member Role Status Lynn Griggs DO Primary Care Provide r, Attending Provider Active Start: June 29, 2023 Team Status: Inactive Member Role Status Dates Dion Ball , DO Primary Care Provider Active Start: July 13, 2023 End: July 13, 2023 David Botello RN Attending Provider Active St art: July 13, 2023 End: July 13, 2023 Team Status: Inactive Member Role Status Dates Dion Griggs , DO Primary Care Provide r, Attending Provider Active Start: September 06, 2023 End: September 06, 2023 Team Status: Active Member Role Status Dates Dion Griggs , DO Primary Care Provide r, Attending Provider Active Start: September 27, 2023 Team Status: Active Member Role Status Dates Dion Griggs , DO Primary Care Provide r, Attending Provider Active Start: September 28, 2023 Team Status: Active Member Role Status Dates Dion Griggs , DO Primary Care Provider Active Start: October 27, 2023 Sara Bob MD Attending Provider Active Start : October 27, 2023 Team Status: Active Member Role Status Dates Dion Griggs , DO Primary Care Provide r, Attending Provider Active Start: November 30, 2023 Team Status: Inactive Member Role Status Dates Dion Griggs , DO Primary Care Provider Active Start: April 04, 2024 End: April 04, 2024 Ynes Jain APRN Attending Provider Active Start: April 04, 2024 End: April 04, 2024 Team Status: Inactive Member Role Status Dates Dion Griggs , DO Primary Care Provider Active Start: September 07, 2024 End: September 07, 2024 Dion Griggs , DO Attending Provider Active Sta rt: September 07, 2024 End: September 07, 2024 Goals (unrecognized section and content) Goals may [...] BE BASED ON THE PRIMARY CLINICAL RECORDS. [employer] [facility]. provides no warranty or guarantee of the accuracy or completeness of information in this document.
== END 2024-09-07 15:29 | disposition home or self-care (01) ==
LOC: LAB 15:30
PROVIDERS: PCP Internal Medicine; Visit Provider Internal Medicine
DX: E11.65 Type 2 diabetes mellitus with hyperglycemia (principal); E78.00 Pure hypercholesterolemia, unspecified; I25.10 Atherosclerotic heart disease of native coronary artery without angina pectoris; I10 Essential (primary) hypertension
CPT/HCPCS: 36415; 80053; 80061; 82043; 82570; 85025

== ENCOUNTER 2024-09-07 15:48 | Outpatient (OUT) | payer MEDICARE, SELFPAY ==
--- OUTSIDE RECORDS SUMMARY | 2024-09-07 15:50 | XMS_ITS | Clinical Summary ---
Author Organization [facility] Address [address] [facility] [address] [place] [address] Care Team Providers Care Jewelry Repairer Name Role Phone Unavailable Primary Care Provider Unavailabl e Source Comments The following information is NOT included in Care Everywhere downloads:Psychiatric notes, ECG results, Cardiac Rehab notes, Pulmonary Function notes, data from [employer] (includes but not limited toPregnancy data,audiograms, eye exams, pre-surgical evaluation notes, well-child exam data).[facility] Allergies No known active allergies Active Problems Problem Noted Date Diagnosed Date Syncope 03/19/2020 Immunizations Immunization Administration Dates Next Due DTP (CVX=01) 03/19/2020 Influenza, injectable, high dose seasonal, trivalent, preservative free (TYM=591) 12/06/2020,11/30/2019 Influenza, injectable, quadr ivalent, preservative free (LSU=946) 11/23/2018 Influenza, injectable, triva lent, preservative (YMQ=958) 10/31/2019 Josephine SARS-COV-2 (COVID-19 ) vaccine, vector non-replicating, recombinant spike protein-Ad26, preservative free, 0.5 mL (WWR=005) 05/06/2020 Pneumococcal conjugate 13 valent (PCV13) (CVX=13 3) 04/01/2015 Pneumococcal polysaccharide 23 Valent (PPSV23) (CVX=33) 03/01/2015 Social History Tobacco Use Types Packs/Day Years Used Date Smoking Tobacco: Never Assessed Sex and Gender Information Value Date Recorded Sex Assigned at Not on file Legal Sex Male 10:25 AM EST Gender Identity Not on file Sexual Orientation Not on file Last Filed Vital Signs Vital Sign Reading Time Taken Comments Blood Pressure 141/70 03/20/2020 7:56 AM EST Pulse 85 03/20/2020 7:56 AM EST Temperature 36.7 C (98.1 F) 03/20/2020 7:56 AM EST Respiratory Rate 20 03/20/2020 7:56 AM EST Oxygen Saturation 98% 03/20/2020 7:56 AM EST Inhaled Oxygen Concentration - - Weight - - Height 167.6 cm (5' 6 ) 03/19/2020 2:32 PM EST Body Mass Index - - Plan of Treatment Health Maintenance Due Date Last Done Comments Tdap Booster 1962 Hepatitis A (HAV) Vaccine (optional start 19+ years) 07/15/1963 Shingles (RZV) Vaccine (1 of 2) 1994 Hepatitis B (HBV) Vaccine (optional start 60+ years) 2004 Annual Wellness Visit (G0438) 06/29/2010 RSV vaccine (adult) (1 - 1-d ose 75+ series) 07/15/2019 COVID-19 Vaccine (2023-2 5 season) 2023 05/06/2020 Influenza Vaccine (#1) 2024 , 11/30/2019, 10/31/2019, Additional history exists Pneumococcal Vaccine(s) (50+ yrs) Completed 016, 03/01/2015 Insurance Please Update Address MEDICARE - [facility] Please Update Address Advance Directives * Full Code (Latest Code Status on File) Date Activated Date Inactivated Comments 03/19/2020 2:23 PM 03/20/2020 1:04 PM Question Answer Comments Documentation of decision pr ocess for this code status: Discussed with patient or surrogate. This is the code status chosen by the patient/surrogate.
--- NOTE | 2024-09-07 15:59 | XR_ITS ---
The [address] [address] Patient Name: KAREN ESCALONA MRN: [id number] date: 1945 Sex: M Assigned Patient Location: US Current Patient Location: US Accession/Order Number: [id number] Exam Date: 09/07/2024 22:12 Report Date: 09/07/2024 22:14 At the request of: SHERIDAN SALMON MD Procedure: XR abdomen 1V XR abdomen 1V 09/07/2024 5:49 PM SIGNS AND SYMPTOMS: ^Kidney stone, N20.0 PROTOCOL: Frontal radiograph of the abdomen and pelvis COMPARISON: 09/27/2023 FINDINGS: There is a stone in the gallbladder lumen. No definite radiodense renal, ureteral, or bladder stones. There is a moderate amount of stool within the colon. The bony structures are intact. XR/XR abdomen 1V IMPRESSION: No definite radiodense renal, ureteral, or bladder stones. Impression dictated by: Ivan Wong M.D. 09/07/2024 10:14 PM Dictation Location: [place] [address] Electronically authenticated by: [id number] Y Date: 09/07/2024 22:14
--- NOTE | 2024-09-07 15:59 | US_ITS ---
The [address] [address] Patient Name: KAREN ESCALONA MRN: [id number] date: 1945 Sex: M Assigned Patient Location: US Current Patient Location: US Accession/Order Number: [id number] Exam Date: 09/07/2024 20:52 Report Date: 09/07/2024 20:55 At the request of: SHERIDAN SALMON MD Procedure: US renal BI Bilateral Renal Ultrasound HISTORY: History of stones. The prostate hyperplasia COMPARISON: None RIGHT kidney measures 11.4 cm. LEFT kidney measures 11.8 cm. Hydronephrosis: Mild left hydronephrosis. RENAL STONE: 7 mm echogenic stone left kidney. RENAL LESIONS: No renal lesion identified. URINARY BLADDER: Moderately distended with volume of 843 cc. Ureteral jets not identified. REPRODUCTIVE STRUCTURES Not assessed IMPRESSION : Mild left hydronephrosis. 7 mm left renal calculus. Impression dictated by: Arie Matias M.D. 09/07/2024 8:55 PM Dictation Location: [place] [address] Electronically authenticated by: [id number] Y Date: 09/07/2024 20:55
[2024-09-07 16:52] LABS: Prostate Specific Antigen Dx 1.19 ng/mL (<=4.00)
== END 2024-09-07 15:49 | disposition home or self-care (01) ==
LOC: US 15:48
PROVIDERS: PCP Internal Medicine; Visit Provider Urology
DX: N20.0 Calculus of kidney (principal); N40.1 Benign prostatic hyperplasia with lower urinary tract symptoms; N13.30 Unspecified hydronephrosis; E11.65 Type 2 diabetes mellitus with hyperglycemia; E78.00 Pure hypercholesterolemia, unspecified; I25.10 Atherosclerotic heart disease of native coronary artery without angina pectoris; I10 Essential (primary) hypertension
CPT/HCPCS: 36415; 74018; 76775; 80053; 80061; 82043; 82570; 84153; 85025

== ENCOUNTER 2024-10-06 13:16 | Outpatient (OUT) | payer MEDICARE, SELFPAY ==
[2024-10-06 13:52] LABS: Microalbum Creatinine Ratio Ur 51.4 mg/g (0.0-29.9)
[2024-10-07 04:07] LABS: Vitamin B12 625 pg/mL (232-1245)
== END 2024-10-06 13:17 | disposition home or self-care (01) ==
LOC: LAB 13:17
PROVIDERS: PCP Internal Medicine
DX: E53.8 Deficiency of other specified B group vitamins (principal); E11.42 Type 2 diabetes mellitus with diabetic polyneuropathy
CPT/HCPCS: 36415; 82043; 82570; 82607